=== PATIENT | female | born 1955 | race African-American/Black ===

== ENCOUNTER 2016-08-06 11:21 | Emergency (ER) | payer OTHER ==
[2016-08-06] MEDS ORDERED: OXYCODONE/APAP 5/325MG COMBO TABLET PO ONE (12:26)
--- NOTE | 2016-08-06 12:26 | PDOC ---
History of Present Illness - General History Source: Patient Exam Limitations: No Limitations - History of Present Illness Initial Comments: 08/06/16 14:07 The patient is a 61 year old female, with a significant past medical history of Obesity, renal insufficiency, diabetes, hypertension, Hep C, bipolar, sciatica, depression, chronic back pain who presents to the emergency department with lower back pain and knee pain. The patient states her back pain is similar to her Sciatica pain however this morning it has progressively worsened. Patient notes her pain medications finished 2 days ago and was unable to refill it. Patient denies any trauma, numbness or tingling to the area and presents to the ED for further evaluatin. She denies chest pain, headache or dizziness. She denies fever, chills, nausea, vomit, diarrhea or constipation. She denies dysuria, frequency, urgency or hematuria. Allergies: Penicillin and ibuprofen Past surgical history: Hysterectomy Social history: tobacco use (5 cigarettes daily). Denies alcohol or drug use. PCP: Dr. Nora Moses <Sherlyn Bach - Last Filed: 08/06/16 14:07> - General History Source: Patient, Old Records Exam Limitations: No Limitations <Cecilia Garcia - Last Filed: 08/06/16 14:38> - General Chief Complaint: Back Pain Stated Complaint: BACK PAIN/LEG PAIN Time Seen by Provider: 08/06/16 12:02 Past History <Sherlyn Bach - Last Filed: 08/06/16 14:07> - Past Medical History CVA: Yes COPD: Yes Diabetes: Yes (NO INSULIN) HTN: Yes Psychiatric Problems: Yes Suicide Attempt (Hx): No - Psycho/Social/Smoking Cessation Hx Anxiety: No Suicidal Ideation: No Smoking History: Unknown if ever smoked Have you smoked in the past 12 months: No Number of Cigarettes Smoked Daily: 8 'Breaking Loose' booklet given: 02/25/16 Hx Alcohol Use: No Drug/Substance Use Hx: Yes Substance Use Type: Heroin Hx Substance Use Treatment: No <Cecilia Garcia - Last Filed: 08/06/16 14:38> - Past Medical History Allergies/Adverse Reactions: Allergies Allergy/AdvReac Type Severity Reaction Status Date / Time ibuprofen [From Motrin IB] Allergy Verified 02/24/16 22:30 metformin Allergy Verified 11/03/16 03:34 Penicillins Allergy Verified 02/24/16 22:30 Home Medications: Ambulatory Orders Escitalopram Oxalate [Lexapro -] 20 mg PO DAILY 09/14/15 Olanzapine [Zyprexa -] 5 mg PO HS 09/14/15 Aspirin Coated [Ecotrin -] 81 mg PO DAILY #30 tablet.ec 09/16/15 Amlodipine Besylate [Norvasc -] 10 mg PO DAILY 02/25/16 Carvedilol [Coreg -] 12.5 mg PO BID 02/25/16 Hydralazine HCl [Apresoline -] 50 mg PO DAILY 02/25/16 Hydrocodone/Acetaminophen [Vicodin Hp 10-300 mg Tablet] 1 each PO PRN 02/25/16 Oxycodone HCl/Acetaminophen [Percocet 5-325 mg Tablet] 1 tab PO Q4H #10 tablet MDD 4 08/06/16 Rosuvastatin Calcium [Crestor] 10 mg PO DAILY 08/06/16 Review of Systems - Review of Systems Able to Perform ROS?: Yes Comments:: 08/06/16 14:07 CONSTITUTIONAL: Absent: fever, no chills, no fatigue EYES: Absent: visual changes ENT: Absent: ear pain, no sore throat CARDIOVASCULAR: Absent: chest pain, no palpitations RESPIRATORY: Absent: cough, no SOB GI: Absent: abdominal pain, no nausea, no vomiting, no constipation, no diarrhea GENITOURINARY: Absent: dysuria, no frequency, no hematuria MUSCULOSKELETAL: + knee pain. + back pain. Absent: no arthralgia, no myalgia SKIN: Absent: rash <Sherlyn Bach - Last Filed: 08/06/16 14:07> *Physical Exam - Vital Signs Last Vital Signs Temp Pulse Resp BP Pulse Ox 98.2 F 78 20 142/71 98 08/06/16 11:35 08/06/16 11:35 08/06/16 11:35 08/06/16 11:35 08/06/16 11:35 - Physical Exam Comments: 08/06/16 14:08 GENERAL: Well-appearing, well-nourished. No apparent distress. HEENT: Normocephalic, atraumatic. PERRL, EOM intact. CARDIOVASCULAR: Normal S1, S2. Regular rate and rhythm. PULMONARY: Clear to auscultation bilaterally. ABDOMEN: Soft, non-distended, non-tender. EXTREMITIES: +Diffuse spinal tenderness from mid thoracic to lumbar region. +Bipedal edema from trace to +1. Normal ROM in all four extremities. No gross deformities. SKIN: Warm, dry. No rash NEUROLOGICAL: No focal neurological deficits. <IsrealSherlyn - Last Filed: 08/06/16 14:07> ED Treatment Course - ADDITIONAL ORDERS Additional order review: Laboratory Results 08/06/16 12:49 Urine Color Yellow Urine Appearance Clear Urine pH 5.0 Ur Specific [place] 1.011 Urine Protein Negative Urine Glucose (UA) Negative Urine Ketones Negative Urine Blood Negative Urine Nitrite Negative Urine Bilirubin Negative Urine Urobilinogen Negative Ur Leukocyte Esterase Trace H Urine RBC 1 Urine WBC 3 Ur Epithelial Cells Few Urine Bacteria Rare Urine Mucus Rare - Medications Given in the ED: ED Medications Discontinued Medications Generic Name Dose Route Start Last Admin Trade Name Freq PRN Reason Stop Dose Admin Oxycodone/Acetaminophen 1 combo 08/06/16 12:26 08/06/16 12:39 Percocet 5/325 - PO 08/06/16 12:27 1 combo ONCE ONE Administration <IsrealSherlyn - Last Filed: 08/06/16 14:07> Medical Decision Making - Medical Decision Making 08/06/16 13:46 61-year-old female with history of bipolar disorder, COPD, hypertension, diabetes and chronic lower back pain secondary to sciatica who presents to the emergency department 2 day history of right-sided lower back pain radiating down her right lower extremity similar to prior episodes of sciatica. She has no other complaints. The patient ran out of her hydrocodone at home and therefore decided to come to the emergency department for treatment. Differential diagnosis includes but is not limited to: Sciatica, muscle spasm, UTI. Plan: 1. Urine analysis 2. Management 3. Observe and reevaluate 08/06/16 14:34 Urine show LE but no nitrites. The patient is asymptomatic. Urine culture was sent. FSG is 103. The patient was re-evaluated at this time and feel much better. I have prescribed her TEN percocet tablet and have instructed her to follow-up with her PCP within the next 1-3 days. I have also advised her to RTED if Sx persist, worsen or new Sx arise. <Cecilia Garcia - Last Filed: 08/06/16 14:38> *DC/Admit/Observation/Transfer - Attestations Scribe Attestion: 08/06/16 14:08 Documentation prepared by Sherlyn Bach, acting as medical support specialist for Cecilia Garcia MD <Sherlyn Bach - Last Filed: 08/06/16 14:07> - Discharge Dispostion Admit: No - Attestations Physician Attestion: 08/06/16 13:47 I, Dr. Cecilia Garcia, attest that the scribes documentation that appears above has been prepared under my direction and personally reviewed by me in its entirety. I confirmed that the note above accurately reflects all work, treatment, procedures, and medical decision-making performed by me. <Cecilia Garcia - Last Filed: 08/06/16 14:38> Diagnosis at time of Disposition: Sciatica - Discharge Dispostion Disposition: HOME Condition at time of disposition: Stable - Prescriptions Prescriptions: Oxycodone HCl/Acetaminophen [Percocet 5-325 mg Tablet] 1 tab PO Q4H #10 tablet MDD 4 - Referrals Referrals: Nora Moses MD [Primary Care Provider] - - Patient Instructions Printed Discharge Instructions: DI for Sciatica Additional Instructions: You are being prescribed percocet--take one tablet every 4-6 hours as needed for pain. You MUST follow-up with your primary care physician within the next 2 -3 days. Return to the ED if your symptoms persist, worsen or new symptoms arise.
[2016-08-06] MEDS ORDERED: OXYCODONE/APAP 5/325MG COMBO TABLET ONE (12:36)
[2016-08-06 13:16] LABS: URINE APPEARANCE CLEAR; URINE BILIRUBIN NEGATIVE (NEGATIVE); URINE BLOOD NEGATIVE (NEGATIVE); URINE COLOR YELLOW; URINE GLUCOSE (UA) NEGATIVE (NEGATIVE); URINE KETONE NEGATIVE (NEGATIVE); URINE NITRITE NEGATIVE (NEGATIVE); URINE PROTEIN NEGATIVE (NEGATIVE); URINE UROBILINOGEN NEGATIVE E.U./dl (0.2-1.0)
[2016-08-06 13:18] LABS: URINE LEUK ESTERASE TRACE (NEGATIVE)
[2016-08-06 13:19] LABS: URINE BACTERIA RARE /hpf (NONE SEEN); URINE MUCUS RARE; URINE RBC 1 /hpf (0-3); URINE WBC 3 /hpf (3-5)
[2016-08-06 13:40] VITALS: BP 142/71; PULSE 78; TEMP 98.2; BMI 36.0
== END 2016-08-06 15:15 | disposition home or self-care (01) ==
LOC: JER 11:21
DX: M54.41 Lumbago with sciatica, right side (principal); I12.9 Hypertensive chronic kidney disease with stage 1 through stage 4 chronic kidney disease, or unspecified chronic kidney disease; E11.9 Type 2 diabetes mellitus without complications; J45.909 Unspecified asthma, uncomplicated; F31.9 Bipolar disorder, unspecified; Z86.73 Personal history of transient ischemic attack (TIA), and cerebral infarction without residual deficits
CPT/HCPCS: 81003; 81015; 99282-25

== ENCOUNTER 2016-08-09 18:18 | Emergency (ER) | payer OTHER ==
[2016-08-09 18:48] VITALS: BMI 36.6
[2016-08-09 18:49] VITALS: TEMP 99.3
--- NOTE | 2016-08-09 20:03 | PDOC ---
History of Present Illness - General Chief Complaint: Chronic pain Stated Complaint: RT KNEE PAIN/LOWER BACK PAIN Time Seen by Provider: 08/09/16 19:13 - History of Present Illness Initial Comments: 08/09/16 20:03 CHIEF COMPLAINT: right knee pain HISTORY OF PRESENT ILLNESS: 61 yo F with hx of obesity, renal insufficiency, NIDDM, hypertension, Hep C, bipolar, sciatica, depression, chronic back pain presents to ED with chronic R knee pain. Patient was seen in this ED two days ago for exacerbation of sciatica and discharged to home with 10 tabs of Percocet. Patient states the Percocets did help her but she ran out of the medication and is unable to refill her regular pain medication of hydrocodone until the . Her pain management doctor is Dr. Torres. She denies any loss of sensation, numbness, or tingling to her legs, and denies any loss of bowel or bladder function. She denies any chest pain, shortness of breath, palpitations, or headache. No recent travel or sick contacts. PAST MEDICAL HISTORY: as per HPI FAMILY HISTORY: Denies SOCIAL HISTORY: Current smoker, 6 cigarettes daily. alcohol, illicit drug use. SURGICAL HISTORY: Denies ALLERGIES: ibuprofen, PCN, metformin REVIEW OF SYSTEMS General/Constitutional: Denies fever or chills. Denies weakness, weight change. HEENT: Denies change in vision. Denies ear pain or discharge. Denies sore throat. Cardiovascular: Denies chest pain or shortness of breath. Respiratory: Denies cough, wheezing, or hemoptysis. Gastrointestinal: Denies nausea, vomiting, diarrhea or constipation. Denies rectal bleeding. Genitourinary: Denies dysuria, frequency, or change in urination. Musculoskeletal: Denies joint or muscle swelling or pain. Denies neck or back pain. Skin and breasts: Denies rash or easy bruising. PHYSICAL EXAM General Appearance: Well-appearing, appropriately dressed. No apparent distress , no intoxication. HEENT: EOMI, PERRLA, normal ENT inspection, normal voice, TMs normal, pharynx normal. No conjunctival pallor. No photophobia, scleral icterus. Neck: Supple. Trachea midline. No tenderness, rigidity, carotid bruit, stridor , lymphadenopathy, or thyromegaly. Respiratory/Chest: Lungs CTAB. Cardiovascular: RRR. S1, S2. Vascular Pulses: Dorsalis-Pedis (R): 2+, Dorsalis-Pedis (L): 2+ Gastrointestinal/Abdominal: Normal bowel sounds. Abdomen soft, non-distended. No tenderness or rebound tenderness. No organomegaly, pulsatile mass, guarding , hernia, hepatomegaly, splenomegaly. Musculoskeletal/Extremities: Pain to R knee with movement, limited ROM secondary to pain. No loss of sensation to lower extremities bilaterally. Normal inspection. FROM of all extremities, normal capillary refill. Pelvis Stable. No CVA tenderness. No tenderness to extremities, pedal edema, swelling , erythema or deformity. Integumentary: Appropriate color, dry, warm. No cyanosis, erythema, jaundice or rash Neurologic: shot fireman II-XII intact. Fully oriented, alert. Appropriate mood/affect. Motor strength 5/5. No appreciable EOM palsy, facial droop or sensory deficit. 08/09/16 20:06 08/09/16 20:24 Past History - Past Medical History Allergies/Adverse Reactions: Allergies Allergy/AdvReac Type Severity Reaction Status Date / Time ibuprofen [From Motrin IB] Allergy Verified 08/09/16 18:43 metformin Allergy Verified 08/09/16 18:43 Penicillins Allergy Verified 08/09/16 18:43 Home Medications: Ambulatory Orders Escitalopram Oxalate [Lexapro -] 20 mg PO DAILY 09/14/15 Olanzapine [Zyprexa -] 5 mg PO HS 09/14/15 Aspirin Coated [Ecotrin -] 81 mg PO DAILY #30 tablet.ec 09/16/15 Amlodipine Besylate [Norvasc -] 10 mg PO DAILY 02/25/16 Carvedilol [Coreg -] 12.5 mg PO BID 02/25/16 Hydralazine HCl [Apresoline -] 50 mg PO DAILY 02/25/16 Hydrocodone/Acetaminophen [Vicodin Hp 10-300 mg Tablet] 1 each PO PRN 02/25/16 Rosuvastatin Calcium [Crestor] 10 mg PO DAILY 08/06/16 Oxycodone HCl/Acetaminophen [Percocet 5-325 mg Tablet] 1 tab PO Q4H #10 tablet MDD 4 08/09/16 CVA: Yes COPD: Yes Diabetes: Yes (NO INSULIN) HTN: Yes Psychiatric Problems: Yes Suicide Attempt (Hx): No - Psycho/Social/Smoking Cessation Hx Anxiety: No Suicidal Ideation: No Smoking History: Unknown if ever smoked Have you smoked in the past 12 months: No Number of Cigarettes Smoked Daily: 8 Information on smoking cessation initiated: No 'Breaking Loose' booklet given: 02/25/16 Hx Alcohol Use: No Drug/Substance Use Hx: No Substance Use Type: Heroin Hx Substance Use Treatment: No *Physical Exam - Vital Signs Last Vital Signs Temp Pulse Resp BP Pulse Ox 99.3 F 101 H 20 123/80 96 08/09/16 18:48 08/09/16 18:48 08/09/16 18:48 08/09/16 18:48 08/09/16 18:48 Medical Decision Making - Medical Decision Making 08/09/16 20:25 61 yo F with hx of obesity, renal insufficiency, NIDDM, hypertension, Hep C, bipolar, sciatica, depression, chronic back pain presents to ED with chronic R knee pain. Vitals notable for HR 103 on arrival. -1 tab Percocet Repeat VS, HR now 92 via pulse ox, 88 on manual exam. Patient did not see PCP as directed by MD in this ED during last visit; states that she was unable to see PCP due to but did speak with PCP today and will follow up in 2 days. Will write for 2 days of Percocet for patient to f/u with PCP. Advised patient to take meds only as prescribed and of signs and symptoms for return to ER; patient verbalized understanding and agrees to plan. *DC/Admit/Observation/Transfer Diagnosis at time of Disposition: Knee pain, chronic Qualifiers: Laterality: right Qualified Code(s): M25.561 - Pain in right knee - Discharge Dispostion Admit: No - Prescriptions Prescriptions: Oxycodone HCl/Acetaminophen [Percocet 5-325 mg Tablet] 1 tab PO Q4H #10 tablet MDD 4 - Referrals Referrals: Nora Moses MD [Non Staff, Medical] - Capo Torres MD [Staff Physician] - - Patient Instructions Printed Discharge Instructions: DI for Knee Pain Additional Instructions: As discussed, you MUST follow up with Dr. Moses on . Please take medication as prescribed; do NOT drive or operate machinery while taking these medications. If you experience any numbness, tingling, loss of sensation, loss of bowel or bladder function, chest pain, shortness of breath, palpitations, or any new or worsening symptoms, please return to the ER.
[2016-08-09] MEDS ORDERED: OXYCODONE/APAP 5/325MG COMBO TABLET PO ONE (20:15)
[2016-08-09] MEDS ORDERED: OXYCODONE/APAP 5/325MG COMBO TABLET ONE (20:25)
[2016-08-09 20:37] VITALS: BP 121/78; PULSE 92
== END 2016-08-09 21:11 | disposition home or self-care (01) ==
LOC: JER 18:18
DX: M25.561 Pain in right knee (principal); G89.29 Other chronic pain; I10 Essential (primary) hypertension; E11.9 Type 2 diabetes mellitus without complications; Z79.84 Long term (current) use of oral hypoglycemic drugs; F32.9 Major depressive disorder, single episode, unspecified; F31.9 Bipolar disorder, unspecified; B18.2 Chronic viral hepatitis C; M54.40 Lumbago with sciatica, unspecified side
CPT/HCPCS: 99282-25

== ENCOUNTER 2016-08-12 09:05 | Emergency (ER) | payer OTHER ==
[2016-08-12 09:16] VITALS: BP 124/81; PULSE 92; TEMP 98.2; BMI 37.4
--- NOTE | 2016-08-12 10:28 | PDOC ---
[id number] PAIN,REFILL Time Seen by Provider: 08/12/16 10:09 - History of Present Illness Initial Comments: 08/12/16 10:45 61 year old female with chronic pain requesting refill of percocet and xanax. patient seen in the ED for similar complaints given percocet prescription. patient reports running out of pain meds. Pmhx as listed Past History - Past Medical History Allergies/Adverse Reactions: Allergies Allergy/AdvReac Type Severity Reaction Status Date / Time ibuprofen [From Motrin IB] Allergy Verified 08/09/16 18:43 metformin Allergy Verified 08/09/16 18:43 Penicillins Allergy Verified 08/09/16 18:43 Home Medications: Ambulatory Orders Escitalopram Oxalate [Lexapro -] 20 mg PO DAILY 09/14/15 Olanzapine [Zyprexa -] 5 mg PO HS 09/14/15 Aspirin Coated [Ecotrin -] 81 mg PO DAILY #30 tablet.ec 09/16/15 Amlodipine Besylate [Norvasc -] 10 mg PO DAILY 02/25/16 Carvedilol [Coreg -] 12.5 mg PO BID 02/25/16 Hydralazine HCl [Apresoline -] 50 mg PO DAILY 02/25/16 Hydrocodone/Acetaminophen [Vicodin Hp 10-300 mg Tablet] 1 each PO PRN 02/25/16 Rosuvastatin Calcium [Crestor] 10 mg PO DAILY 08/06/16 Oxycodone HCl/Acetaminophen [Percocet 5-325 mg Tablet] 1 tab PO Q4H #10 tablet MDD 4 08/09/16 CVA: Yes COPD: Yes Diabetes: Yes (NO INSULIN) HTN: Yes Psychiatric Problems: Yes Suicide Attempt (Hx): No - Psycho/Social/Smoking Cessation Hx Anxiety: No Suicidal Ideation: No Smoking History: Current every day smoker Have you smoked in the past 12 months: Yes Number of Cigarettes Smoked Daily: 6 Information on smoking cessation initiated: No 'Breaking Loose' booklet given: 02/25/16 Hx Alcohol Use: No Drug/Substance Use Hx: No Substance Use Type: Heroin Hx Substance Use Treatment: No *Physical Exam - Vital Signs Last Vital Signs Temp Pulse Resp BP Pulse Ox 98.2 F 92 H 20 124/81 93 L 08/12/16 09:13 08/12/16 09:13 08/12/16 09:13 08/12/16 09:13 08/12/16 09:13 - Physical Exam General Appearance: Yes: Appropriately Dressed, Other (wheel chair bound) Respiratory/Chest: positive: Lungs Clear, Normal Breath Sounds Extremity: positive: Normal Capillary Refill, Normal Inspection, Normal Range of Motion, Swelling (b/l lower extremity mild edema) Integumentary: positive: Normal Color, Dry, Warm Neurologic: positive: Fully Oriented, Alert, Normal Mood/Affect Medical Decision Making - Medical Decision Making 08/12/16 10:38 I- Stop reviewed 08/10/2016 08/10/2016 oxycodone-acetaminophen 5-325 mg tablet 10 3 08/06/2016 08/08/2016 oxycodone-acetaminophen 5-325 mg tablet 10 2 07/20/2016 07/20/2016 hydrocodone-acetaminophen 10-325 tablet 120 30 08/12/16 10:44 patient with chronic pain. seen in the ED for similar complaints. advised to follow up with pain management today. will give one dose in the ED. patient is taking a Cab home. *DC/Admit/Observation/Transfer Diagnosis at time of Disposition: Chronic pain Qualifiers: Chronic pain type: other chronic pain Qualified Code(s): G89.29 - Other chronic pain - Discharge Dispostion Disposition: HOME Condition at time of disposition: Stable - Referrals Referrals: Nora Moses MD [Primary Care Provider] - - Patient Instructions Printed Discharge Instructions: DI for Leg Pain Additional Instructions: elevate your legs follow up with your pain management doctor as soon as possible.
[2016-08-12] MEDS ORDERED: OXYCODONE/APAP 5/325MG COMBO TABLET PO ONE (10:47)
[2016-08-12] MEDS ORDERED: OXYCODONE/APAP 5/325MG COMBO TABLET ONE (10:49)
== END 2016-08-12 11:09 | disposition home or self-care (01) ==
LOC: JERFT 09:05
DX: G89.29 Other chronic pain (principal); I10 Essential (primary) hypertension; E11.9 Type 2 diabetes mellitus without complications; J44.9 Chronic obstructive pulmonary disease, unspecified; Z86.73 Personal history of transient ischemic attack (TIA), and cerebral infarction without residual deficits
CPT/HCPCS: 99281-25

== ENCOUNTER 2016-09-28 10:30 | Emergency (ER) | payer OTHER ==
--- NOTE | 2016-09-28 11:01 | PDOC ---
History of Present Illness - General History Source: Old Records Exam Limitations: No Limitations - History of Present Illness Initial Comments: 11:12 The patient is a 61 year old female, with a significant past medical history of COPD (no O2 at home), CHF, NC, diabetes, hypertension, Hep C, bipolar, sciatica , depression, chronic back pain, who presents to the ED with lower extremity swelling. The pt states that she does get short of breath when ambulating. Pt reports chills. Pt denies any fever, nausea, vomiting, diarrhea, or abdominal pain. Pt denies any chest pain. Allergies: Penicillin and ibuprofen Past surgical history: Hysterectomy Social history: tobacco use (8 cigarettes daily). Denies alcohol or drug use. PCP: Dr. Nora Moses <Hue Márquez - Last Filed: 09/28/16 12:14> <Barbie Li - Last Filed: 09/28/16 15:42> - General Chief Complaint: Shortness of Breath Stated Complaint: lethargy/sob Time Seen by Provider: 09/28/16 10:39 Past History <Hue Márquez - Last Filed: 09/28/16 12:14> - Past Medical History CVA: Yes COPD: Yes Diabetes: Yes (NO INSULIN) HTN: Yes Psychiatric Problems: Yes Suicide Attempt (Hx): No - Psycho/Social/Smoking Cessation Hx Anxiety: No Suicidal Ideation: No Smoking History: Current every day smoker Have you smoked in the past 12 months: Yes Number of Cigarettes Smoked Daily: 8 Information on smoking cessation initiated: No 'Breaking Loose' booklet given: 02/25/16 Hx Alcohol Use: No Drug/Substance Use Hx: No Substance Use Type: Heroin Hx Substance Use Treatment: No <Barbie Li - Last Filed: 09/28/16 15:42> - Past Medical History Allergies/Adverse Reactions: Allergies Allergy/AdvReac Type Severity Reaction Status Date / Time ibuprofen [From Motrin IB] Allergy Verified 09/28/16 10:59 metformin Allergy Verified 09/28/16 10:59 Penicillins Allergy Verified 09/28/16 10:59 Home Medications: Ambulatory Orders Escitalopram Oxalate [Lexapro -] 20 mg PO DAILY 09/14/15 Olanzapine [Zyprexa -] 5 mg PO HS 09/14/15 Aspirin Coated [Ecotrin -] 81 mg PO DAILY #30 tablet.ec 09/16/15 Amlodipine Besylate [Norvasc -] 10 mg PO DAILY 02/25/16 Carvedilol [Coreg -] 12.5 mg PO BID 02/25/16 Hydralazine HCl [Apresoline -] 50 mg PO DAILY 02/25/16 Rosuvastatin Calcium [Crestor] 10 mg PO DAILY 08/06/16 Oxycodone HCl/Acetaminophen [Percocet 5-325 mg Tablet] 1 tab PO Q4H #10 tablet MDD 4 08/09/16 Albuterol Sulfate Inhaler - [Ventolin HFA Inhaler -] 2 inh PO Q4H PRN #1 inh 11/07 Albuterol Sulfate Inhaler - [Ventolin HFA Inhaler -] 2 inh PO Q4H PRN #1 inh 11/07 Clindamycin [Cleocin -] 300 mg PO TID #21 capsule 09/28/16 Prednisone [Deltasone -] 20 mg PO DAILY #7 tablet 09/28/16 Review of Systems - Review of Systems Able to Perform ROS?: Yes Comments:: 09/28/16 11:12 GENERAL/CONSTITUTIONAL: No fever. No weakness. +chills HEAD, EYES, EARS, NOSE AND THROAT: No change in vision. No ear pain or discharge. No sore throat. CARDIOVASCULAR: No chest pain. +shortness of breath RESPIRATORY: No cough, wheezing, or hemoptysis. SKIN: No rash GASTROINTESTINAL: No nausea, vomiting, diarrhea or constipation. GENITOURINARY: No dysuria, frequency, or change in urination. MUSCULOSKELETAL: No joint swelling or pain. No neck or back pain. EXTREMITIES: +lower extremity swelling NEUROLOGIC: No headache, vertigo, loss of consciousness, or change in strength/ sensation. ENDOCRINE: No increased thirst. No abnormal weight change. HEMATOLOGIC/LYMPHATIC: No anemia, easy bleeding, or history of blood clots. ALLERGIC/IMMUNOLOGIC: No hives or skin allergy. <Hue Márquez - Last Filed: 09/28/16 12:14> *Physical Exam - Vital Signs Last Vital Signs Temp Pulse Resp BP Pulse Ox 98.4 F 90 28 H 141/85 99 09/28/16 10:30 09/28/16 10:30 09/28/16 10:30 09/28/16 10:30 09/28/16 10:52 - Physical Exam Comments: 09/28/16 11:14 GENERAL: Awake, alert, and fully oriented, in no acute distress. Obese. HEAD: No signs of trauma ENT: Auricles normal inspection, hearing grossly normal, nares patent, oropharynx clear EYES: PERRLA, EOMI, sclera anicteric, conjunctiva clear without exudates. Moist mucosa. NECK: Normal ROM, supple, no lymphadenopathy, JVD, or masses LUNGS: No wheezes, and no crackles. +Lung sounds distance HEART: Regular rate and rhythm, normal S1 and S2, no murmurs, rubs or gallops ABDOMEN: Soft, nontender, normoactive bowel sounds. No guarding, no rebound. No masses EXTREMITIES: Normal range of motion. No clubbing or cyanosis. No cords. + Bilateral pitting edema to knee with warmth. NEUROLOGICAL: Cranial nerves II through XII grossly intact. SKIN: Warm, Dry, normal turgor, no rashes or lesions noted <Hue Márquez - Last Filed: 09/28/16 12:14> - Vital Signs Last Vital Signs Temp Pulse Resp BP Pulse Ox 98.4 F 90 28 H 141/85 99 09/28/16 10:30 09/28/16 10:30 09/28/16 10:30 09/28/16 10:30 09/28/16 10:52 <Barbie Li - Last Filed: 09/28/16 15:42> Heart Score/ECG Review #1 General ECG Interpretation: Sinus Rhythm, Normal Rate (83), Normal Intervals, No acute ischemic changes - ECG Intrepretation Rhythm: Regular Rhythm - Mason Mason: Normal <Barbie Li - Last Filed: 09/28/16 15:42> ED Treatment Course - LABORATORY CBC & Chemistry Diagram: 09/28/16 11:40 09/28/16 11:40 - RADIOLOGY Radiology Studies Ordered: 09/28/16 12:14 Chest X-Ray was reviewed by Dr. Li and over-read by Radiology. Impression: No evidence of CHF, pulmonic consolidations, pneumothorax, or large pleural effusion. <Hue Márquez - Last Filed: 09/28/16 12:14> - LABORATORY CBC & Chemistry Diagram: 09/28/16 11:40 09/28/16 11:40 <Barbie Li - Last Filed: 09/28/16 15:42> Medical Decision Making - Medical Decision Making 09/28/16 10:56 61 yo F COPD, CHF, NC, bipolar , cKD hep C HTN here wtih c/o " not feeling well ". states her legs are more swollen recently . does get sob with walking , does not wear home Oxygen. no chest pain. no n/v no abd pain. no f/c no mod factors. does ambulate. on exam awake, alert . lungs distant breath sounds, heart RRR no m/r/g. abd soft obese nt. legs pitting edema bilaterally 3 + to knees. mild erythema and warmth. differential: cellulitis, edema, chf worsenign renal failure. plan labs cxr ekg , 09/28/16 14:56 pt feels improved after neb, sats improved. cxr unchanged from prior. labs unremarkable. will dc with inhaler , and clindamycin for leg erythema, early cellulitis, refill rx for inhaler. will follow up with clinic. 09/28/16 15:40 <Barbie Li - Last Filed: 09/28/16 15:42> *DC/Admit/Observation/Transfer - Attestations Scribe Attestion: 09/28/16 11:16 Documentation prepared by Hue Márquez, acting as medical records custodian for Barbie Li MD. <Hue Márquez - Last Filed: 09/28/16 12:14> - Discharge Dispostion Admit: No <Barbie Li - Last Filed: 09/28/16 15:42> Diagnosis at time of Disposition: Leg edema, COPD (chronic obstructive pulmonary disease) - Discharge Dispostion Disposition: HOME Condition at time of disposition: Improved - Prescriptions Prescriptions: Clindamycin [Cleocin -] 300 mg PO TID #21 capsule Prednisone [Deltasone -] 20 mg PO DAILY #7 tablet Albuterol Sulfate Inhaler - [Ventolin HFA Inhaler -] 2 inh PO Q4H PRN #1 inh PRN Reason: Shortness Of Breath Albuterol Sulfate Inhaler - [Ventolin HFA Inhaler -] 2 inh PO Q4H PRN #1 inh PRN Reason: Shortness Of Breath - Referrals Referrals: Nora Moses MD [Primary Care Provider] - - Patient Instructions Printed Discharge Instructions: Chronic Obstructive Pulmonary Disease, Cellulitis Additional Instructions: take clindamycin 300 mg three times daily x 7 days. you should quit smoking. you should also use albuterol inhaler 2 puffs every 4 hours to help with breathing. follow up wtih your primary doctor call to schedule. return for shortness of breath, worsening legg pain or swelling or any concerns.take prednisone 20 mg daily x 7 days.
[2016-09-28 11:32] VITALS: BMI 37.4
[2016-09-28 11:54] LABS: BASOPHIL 0.4 % (0-2.0); EOSINOPHIL 1.3 % (0-4.5); MCH 25.3 pg (25.7-33.7); MCHC 31.7 g/dl (32.0-36.0); MEAN CELL VOLUME 79.9 fl (80-96); MEAN PLT VOLUME 6.9 fl (7.5-11.1); NEUTROPHILS 59.1 % (42.8-82.8); PLATELET COUNT 215 K/MM3 (134-434); RDW 18.5 % (11.6-15.6); WHITE BLOOD COUNT 4.2 K/mm3 (4.0-10.0)
[2016-09-28 12:28] LABS: ALBUMIN 3.4 g/dl (3.4-5.0); BILIRUBIN,TOTAL 0.5 mg/dL (0.2-1.0); CALCIUM 8.2 mg/dL (8.5-10.1); COCKROFT - GAULT 82.773; CREATININE 1.1 mg/dL (0.55-1.02); TOT PROT 7.9 g/dl (6.4-8.2)
[2016-09-28] MEDS ORDERED: ALBUTEROL SO4 2.5/IPRATROPIUM 0.5 INH SOL 3 ML VIAL.NEB. NEB ONE ×2 (13:28→13:29)
[2016-09-28 15:13] VITALS: BP 138/88; PULSE 89; TEMP 98.9
[2016-09-28] MEDS ORDERED: predniSONE 20 MG TABLET (UD) PO ONE (15:29)
[2016-09-28] MEDS ORDERED: predniSONE 20 MG TABLET (UD) ONE (15:30)
--- NOTE | 2016-09-29 10:35 | EKG ---
Test Reason : Blood Pressure : / mmHG Vent. Rate : 083 BPM Atrial Rate : 083 BPM P-R Int : 184 ms QRS Dur : 086 ms QT Int : 416 ms P-R-T Axes : 063 025 069 degrees QTc Int : 488 ms NORMAL SINUS RHYTHM NORMAL ECG WHEN COMPARED WITH ECG OF 25-FEB-2016 02:07, NO SIGNIFICANT CHANGE WAS FOUND Confirmed by SRIKANTH BELL MD ([id number]) on 09/29/2016 10:34:54 AM Referred By: Confirmed By:SRIKANTH BELL MD
== END 2016-09-28 15:43 | disposition home or self-care (01) ==
LOC: JER 10:30
PROC: 3E0F7GC Introduction of Other Therapeutic Substance into Respiratory Tract, Via Natural or Artificial Opening (ICD-10-PCS; principal; 2016-09-28)
DX: R60.0 Localized edema (principal); J44.9 Chronic obstructive pulmonary disease, unspecified; I25.2 Old myocardial infarction; I25.10 Atherosclerotic heart disease of native coronary artery without angina pectoris; I13.0 Hypertensive heart and chronic kidney disease with heart failure and stage 1 through stage 4 chronic kidney disease, or unspecified chronic kidney disease; N18.9 Chronic kidney disease, unspecified; I50.9 Heart failure, unspecified; F17.210 Nicotine dependence, cigarettes, uncomplicated; E11.9 Type 2 diabetes mellitus without complications; B18.2 Chronic viral hepatitis C; F32.9 Major depressive disorder, single episode, unspecified
CPT/HCPCS: 36415; 71010-TC; 80053; 83880; 85025; 93005; 93010; 94640; 99284-25

== ENCOUNTER 2016-10-28 11:14 | Emergency (ER) | payer OTHER ==
[2016-10-28 11:43] VITALS: TEMP 98.3; BMI 42.5
[2016-10-28] MEDS ORDERED: ALBUTEROL SO4 2.5/IPRATROPIUM 0.5 INH SOL 3 ML VIAL.NEB. NEB ONE ×2 (12:23→12:25)
[2016-10-28 13:51] LABS: BASOPHIL 0.5 % (0-2.0); EOSINOPHIL 1.5 % (0-4.5); MCH 24.5 pg (25.7-33.7); MCHC 31.6 g/dl (32.0-36.0); MEAN CELL VOLUME 77.7 fl (80-96); MEAN PLT VOLUME 6.8 fl (7.5-11.1); NEUTROPHILS 48.8 % (42.8-82.8); PLATELET COUNT 226 K/MM3 (134-434); RDW 19.9 % (11.6-15.6); WHITE BLOOD COUNT 3.8 K/mm3 (4.0-10.0)
[2016-10-28 14:14] LABS: ALBUMIN 3.5 g/dl (3.4-5.0); ANION GAP 9 (8-16); BILIRUBIN,TOTAL 0.6 mg/dL (0.2-1.0); CALCIUM 8.3 mg/dL (8.5-10.1); CO2 32 mmol/L (21-32); GLUCOSE,RANDOM 102 mg/dL (74-106); SGOT/AST 38 U/L (15-37); SGPT/ALT 65 U/L (12-78)
[2016-10-28 14:17] LABS: ALK PHOS 121 U/L (45-117); TROPONIN I < 0.02 ng/ml (0.00-0.05)
[2016-10-28] MEDS ORDERED: DEXAMETHASONE SOD PHOSPHATE 10 MG/1 ML VIAL IVPB ONE (14:34)
--- NOTE | 2016-10-28 14:34 | PDOC ---
History of Present Illness - General History Source: Patient, Old Records Exam Limitations: No Limitations - History of Present Illness Initial Comments: 10/28/16 14:38 The patient is a 61 year old female with a significant past medical history of obesity, renal insufficiency, diabetes, hypertension, Hep C, TB, bipolar, sciatica, depression, chronic back pain, CA and stroke (12/2015), who presents to the emergency department today with shortness of breath and fatigue for 2 days. The patient appears agitated on examination. She endorses bilateral calf pain worse with walking and headache. Patient denies cough, fever, chills, chest pain, neck pain, arm pain, nausea, vomiting, diarrhea, and history of blood clot. Allergies: Penicillin and ibuprofen Past surgical history: Hysterectomy Social history: tobacco use (5 cigarettes daily). Denies alcohol or drug use. PCP: Dr. Nora Moses <Cam Palomo - Last Filed: 10/28/16 14:39> <Barbie Li - Last Filed: 10/28/16 18:08> - General Chief Complaint: Shortness of Breath Stated Complaint: SOB Time Seen by Provider: 10/28/16 12:18 Past History <Cam Palomo - Last Filed: 10/28/16 14:39> - Past Medical History CVA: Yes COPD: Yes Diabetes: Yes HTN: Yes Liver Disease: Yes (HEPATITIS C.) Psychiatric Problems: Yes Suicide Attempt (Hx): No Other medical history: SCIATICA. - Surgical History Abdominal Surgery: Yes - Psycho/Social/Smoking Cessation Hx Anxiety: No Suicidal Ideation: No Smoking History: Current every day smoker Have you smoked in the past 12 months: Yes Number of Cigarettes Smoked Daily: 10 Information on smoking cessation initiated: No 'Breaking Loose' booklet given: 02/25/16 Hx Alcohol Use: Yes (occassionally.) Drug/Substance Use Hx: No Substance Use Type: Alcohol Hx Substance Use Treatment: No <Barbie Li - Last Filed: 10/28/16 18:08> - Past Medical History Allergies/Adverse Reactions: Allergies Allergy/AdvReac Type Severity Reaction Status Date / Time ibuprofen [From Motrin IB] Allergy Verified 09/28/16 10:59 metformin Allergy Verified 09/28/16 10:59 Penicillins Allergy Verified 09/28/16 10:59 Home Medications: Ambulatory Orders Escitalopram Oxalate [Lexapro -] 20 mg PO DAILY 09/14/15 Olanzapine [Zyprexa -] 5 mg PO HS 09/14/15 Aspirin Coated [Ecotrin -] 81 mg PO DAILY #30 tablet.ec 09/16/15 Amlodipine Besylate [Norvasc -] 10 mg PO DAILY 02/25/16 Carvedilol [Coreg -] 12.5 mg PO BID 02/25/16 Hydralazine HCl [Apresoline -] 50 mg PO DAILY 02/25/16 Rosuvastatin Calcium [Crestor] 10 mg PO DAILY 08/06/16 Oxycodone HCl/Acetaminophen [Percocet 5-325 mg Tablet] 1 tab PO Q4H #10 tablet MDD 4 08/09/16 Albuterol Sulfate Inhaler - [Ventolin HFA Inhaler -] 2 inh PO Q4H PRN #1 inh 11/07 Clindamycin [Cleocin -] 300 mg PO TID #21 capsule 09/28/16 Albuterol Sulfate Inhaler - [Ventolin HFA Inhaler -] 2 inh PO Q4H PRN #1 inh 11/07 Prednisone [Deltasone -] 20 mg PO DAILY #7 tablet 10/28/16 Review of Systems - Review of Systems Able to Perform ROS?: Yes Comments:: 10/28/16 14:38 GENERAL/CONSTITUTIONAL: (+) Fatigue. No fever or chills. HEAD, EYES, EARS, NOSE AND THROAT: No change in vision. No ear pain or discharge. No sore throat. GASTROINTESTINAL: No nausea, vomiting, diarrhea or constipation. GENITOURINARY: No dysuria, frequency, or change in urination. CARDIOVASCULAR: No chest pain. RESPIRATORY: (+) Shortness of breath No cough, wheezing, or hemoptysis. MUSCULOSKELETAL: (+) Bilateral calf pain. No neck or back pain. SKIN: No rash NEUROLOGIC: (+) headache. No vertigo, loss of consciousness, or change in strength/sensation. ENDOCRINE: No increased thirst. No abnormal weight change. HEMATOLOGIC/LYMPHATIC: No anemia, easy bleeding, or history of blood clots. ALLERGIC/IMMUNOLOGIC: No hives or skin allergy. <Cam Palomo - Last Filed: 10/28/16 14:39> *Physical Exam - Vital Signs Last Vital Signs Temp Pulse Resp BP Pulse Ox 98.3 F 78 20 118/82 97 10/28/16 11:16 10/28/16 11:16 10/28/16 11:16 10/28/16 11:16 10/28/16 11:57 - Physical Exam Comments: 10/28/16 14:38 GENERAL: (+) Awake, alert, and fully oriented, agitated HEAD: No signs of trauma EYES: PERRLA, EOMI, sclera anicteric, conjunctiva clear ENT: Auricles normal inspection, nares patent, Moist mucosa NECK: Normal ROM, supple, no lymphadenopathy, JVD, or masses LUNGS: (+) Breath sounds equal, clear to auscultation bilaterally. Bilateral diffuse wheezes, no crackles. HEART: (+) Tachycardia with regular rhythm, normal S1 and S2, no murmurs, rubs or gallops ABDOMEN: Soft, nontender, normoactive bowel sounds. No guarding, no rebound. No masses EXTREMITIES: Normal range of motion, no edema. No clubbing or cyanosis. No cords, erythema, or tenderness NEUROLOGICAL: Normal speech SKIN: Warm, Dry, normal turgor, no rashes or lesions noted. <Cam Palomo - Last Filed: 10/28/16 14:39> - Vital Signs Last Vital Signs Temp Pulse Resp BP Pulse Ox 98.3 F 78 20 118/82 97 10/28/16 11:16 10/28/16 11:16 10/28/16 11:16 10/28/16 11:16 10/28/16 11:57 <Barbie Li - Last Filed: 10/28/16 18:08> Heart Score/ECG Review #1 General ECG Interpretation: Sinus Rhythm, Normal Rate (64), Normal Intervals, No acute ischemic changes <Barbie Li - Last Filed: 10/28/16 18:08> ED Treatment Course - LABORATORY CBC & Chemistry Diagram: 10/28/16 13:21 10/28/16 13:21 - ADDITIONAL ORDERS Additional order review: Laboratory Results 10/28/16 13:21 Sodium 142 Potassium 3.0 L Chloride 101 Carbon Dioxide 32 Anion Gap 9 BUN 10 D Creatinine 1.0 Creat Clearance w eGFR 56.18 Random Glucose 102 Calcium 8.3 L Total Bilirubin 0.6 AST 38 H D ALT 65 Alkaline Phosphatase 121 H Creatine Kinase 82 Troponin I < 0.02 B-Natriuretic Peptide 291.72 H Total Protein 8.0 Albumin 3.5 10/28/16 13:21 RBC 4.52 MCV 77.7 L MCHC 31.6 L RDW 19.9 H MPV 6.8 L Neutrophils % 48.8 Lymphocytes % 36.0 D Monocytes % 13.2 H Eosinophils % 1.5 Basophils % 0.5 - RADIOLOGY Radiograph Interpretation: 10/28/16 14:40 EXAM#: TYPE/EXAM: RESULT: [id number] RAD/CHEST X-RAY PORTABLE* Shortness of breath. Semierect portable x-ray. Comparison study September 28, 2016. Cardiomegaly. No evidence of pneumonia, CHF, pleural effusion or pneumothorax. Uncoiled thoracic aorta. No evidence of pleural effusion, or pneumothorax. Intact visualized osseous structures. Degenerative changes of the left shoulder joint. Impression. No evidence of active pulmonary disease. Reported By: Vikas So MD 10/28/16 1421 - Medications Given in the ED: ED Medications Discontinued Medications Generic Name Dose Route Start Last Admin Trade Name Freq PRN Reason Stop Dose Admin Albuterol/Ipratropium 1 amp 10/28/16 12:23 10/28/16 12:34 Duoneb - NEB 10/28/16 12:24 1 amp ONCE ONE Administration <Cam Palomo - Last Filed: 10/28/16 14:39> - LABORATORY CBC & Chemistry Diagram: 10/28/16 13:21 10/28/16 13:21 - ADDITIONAL ORDERS Additional order review: Laboratory Results 10/28/16 13:21 Sodium 142 Potassium 3.0 L Chloride 101 Carbon Dioxide 32 Anion Gap 9 BUN 10 D Creatinine 1.0 Creat Clearance w eGFR 56.18 Random Glucose 102 Calcium 8.3 L Total Bilirubin 0.6 AST 38 H D ALT 65 Alkaline Phosphatase 121 H Creatine Kinase 82 Troponin I < 0.02 B-Natriuretic Peptide 291.72 H Total Protein 8.0 Albumin 3.5 10/28/16 13:21 RBC 4.52 MCV 77.7 L MCHC 31.6 L RDW 19.9 H MPV 6.8 L Neutrophils % 48.8 Lymphocytes % 36.0 D Monocytes % 13.2 H Eosinophils % 1.5 Basophils % 0.5 - RADIOLOGY Radiology Studies Ordered: Category Date Time Status CXRPORT [CHEST X-RAY PORTABLE*] [RAD] Stat Radiology 10/28/16 12:22 Completed - Medications Given in the ED: ED Medications Discontinued Medications Generic Name Dose Route Start Last Admin Trade Name Sebastian PRN Reason Stop Dose Admin Albuterol/Ipratropium 1 amp 10/28/16 12:23 10/28/16 12:34 Duoneb - NEB 10/28/16 12:24 1 amp ONCE ONE Administration <Barbie Li - Last Filed: 10/28/16 18:08> Medical Decision Making - Medical Decision Making 10/28/16 14:31 61 yo F wit h/o copd, HTN, DM HEP C, CAD / CA treated tuberculosis. here wtih 2 - 3 days of sob, and weakness. no cough no f/c no mod factors. no cp no leg swelling. no h/o pe or dvt. sob is worse with walking. on exam awake alert . lungs bilateral wheezing, normal effort. heart RRR no mrg abd soft NT ND. skin warm and dry. ext no pitting edema. nuero awake alrert oriented x 3. plan: differential angina, chf pneumonia copd exacerbation. plan cxr lab nebs ekg reassess. steroids 10/28/16 18:08 pt felt better after nebs. dc home with steroids and inhaler <Barbie Li - Last Filed: 10/28/16 18:08> *DC/Admit/Observation/Transfer - Attestations Scribe Attestion: 10/28/16 14:38 Documentation prepared by Cam Palomo, acting as medical records receptionist for Barbie Li MD. <Cam Palomo - Last Filed: 10/28/16 14:39> - Discharge Dispostion Admit: No <Barbie Li - Last Filed: 10/28/16 18:08> Diagnosis at time of Disposition: COPD exacerbation - Prescriptions Prescriptions: Prednisone [Deltasone -] 20 mg PO DAILY #7 tablet Albuterol Sulfate Inhaler - [Ventolin HFA Inhaler -] 2 inh PO Q4H PRN #1 inh PRN Reason: Shortness Of Breath - Referrals Referrals: Nora Moses MD [Primary Care Provider] - - Patient Instructions Printed Discharge Instructions: Chronic Obstructive Pulmonary Disease Additional Instructions: you should take prednisone 20 mg once daily x 5 days use albuterol inhaler 2 puffs every 4 hours as needed for wheezing and coughing . you need to quit smoking. follow up with your primary doctor. return for any problems or concern. Print Language: LATVIAN
[2016-10-28] MEDS ORDERED: DEXAMETHASONE SOD PHOSPHATE 10 MG/1 ML VIAL ONE (15:07)
--- NOTE | 2016-10-28 15:45 | EKG ---
Test Reason : Blood Pressure : / mmHG Vent. Rate : 064 BPM Atrial Rate : 064 BPM P-R Int : 178 ms QRS Dur : 080 ms QT Int : 450 ms P-R-T Axes : 066 029 071 degrees QTc Int : 464 ms NORMAL SINUS RHYTHM NONSPECIFIC ST ABNORMALITY WHEN COMPARED WITH ECG OF 28-SEP-2016 10:56, NO SIGNIFICANT CHANGE WAS FOUND Confirmed by ART ANTHONY MD ([id number]) on 10/28/2016 3:44:57 PM Referred By: Confirmed By:ART ANTHONY MD
[2016-10-28 17:30] VITALS: BP 120/70; PULSE 84
== END 2016-10-28 17:30 | disposition home or self-care (01) ==
LOC: JER 11:14
PROC: 3E0F7GC Introduction of Other Therapeutic Substance into Respiratory Tract, Via Natural or Artificial Opening (ICD-10-PCS; principal; 2016-10-28)
PROC: 3E0333Z Introduction of Anti-inflammatory into Peripheral Vein, Percutaneous Approach (ICD-10-PCS; 2016-10-28)
DX: J44.1 Chronic obstructive pulmonary disease with (acute) exacerbation (principal); I25.2 Old myocardial infarction; I10 Essential (primary) hypertension; E11.9 Type 2 diabetes mellitus without complications; N28.9 Disorder of kidney and ureter, unspecified; F31.9 Bipolar disorder, unspecified; Z86.11 Personal history of tuberculosis; Z86.19 Personal history of other infectious and parasitic diseases
CPT/HCPCS: 36415; 71010-TC; 80053; 82550; 83880; 84484; 85025; 93005; 93010; 94640; 96374; 99283-25

== ENCOUNTER 2016-11-20 08:18 | Emergency (ER) | payer OTHER ==
--- NOTE | 2016-11-20 08:38 | PDOC ---
History of Present Illness - General Stated Complaint: HEADACHE S/P FALL Time Seen by Provider: 11/20/16 08:20 History Source: Patient Exam Limitations: No Limitations - History of Present Illness Initial Comments: 11/20/16 08:53 CC: Fall - possibly mechanical Patient is a 61 y.o female with a PMH Obesity, Depression, Renal Insufficiency, NIDDM, HTN, Sciatica as well as [place] and CVA (12/2015) who presents to the ED today following a fall at home. Patient states she was in her bedroom walking to the living room when she felt "dizzy" and fell to the ground bracing her fall with her right hand and rolling onto her right side. Patient denies any head trauma or loss of consciousness and states she felt as if the room was spinning. Patient notes this sensation has occurred on 1-2 prior occasions which she associated similarly with running out of her psychiatric medications (Zyprexa 15 mg QD; Klonopin 0.5 mg QD PRN) however she did not fall on those occasions. Patient c/o of a throbbing wrist pain as well as medial R leg pain. ROS is positive for headache, consistent with patient's migraines and negative for chest pain, shortness of breath, diaphoresis or abdominal pain. PMH: Renal Insufficiency, NIDDM, HTN, [place], [place] & CVA (12/2015) Past Surgical:Hysterectomy 2/2 to Fibroids SH: (+) nicotine: 4 cigarettes daily; (+) alcohol:1-2 beers weekly; (-) marijuana/cocaine/heroin Allergies: Penicillin, Ibuprofen PCP: Nora Moses Past History - Past Medical History Allergies/Adverse Reactions: Allergies Allergy/AdvReac Type Severity Reaction Status Date / Time ibuprofen [From Motrin IB] Allergy Verified 11/20/16 08:28 metformin Allergy Verified 11/20/16 08:28 Penicillins Allergy Verified 11/20/16 08:28 Home Medications: Ambulatory Orders Escitalopram Oxalate [Lexapro -] 20 mg PO DAILY 09/14/15 Olanzapine [Zyprexa -] 5 mg PO HS 09/14/15 Aspirin Coated [Ecotrin -] 81 mg PO DAILY #30 tablet.ec 09/16/15 Amlodipine Besylate [Norvasc -] 10 mg PO DAILY 02/25/16 Carvedilol [Coreg -] 12.5 mg PO BID 02/25/16 Hydralazine HCl [Apresoline -] 50 mg PO DAILY 02/25/16 Rosuvastatin Calcium [Crestor] 10 mg PO DAILY 08/06/16 Oxycodone HCl/Acetaminophen [Percocet 5-325 mg Tablet] 1 tab PO Q4H #10 tablet MDD 4 08/09/16 Albuterol Sulfate Inhaler - [Ventolin HFA Inhaler -] 2 inh PO Q4H PRN #1 inh 11/07 Clindamycin [Cleocin -] 300 mg PO TID #21 capsule 09/28/16 Prednisone [Deltasone -] 20 mg PO DAILY #7 tablet 10/28/16 Albuterol Sulfate Inhaler - [Ventolin HFA Inhaler -] 2 inh PO Q4H PRN #1 inh Clonazepam [KlonoPIN] 0.5 mg GT PRN PRN #10 tablet MDD 0.5 11/20/16 Olanzapine [Zyprexa] 5 mg PO DAILY #10 tablet 11/20/16 Olanzapine [Zyprexa] 10 mg PO DAILY #10 tablet 11/20/16 CVA: Yes COPD: Yes Diabetes: Yes HTN: Yes Liver Disease: Yes (HEPATITIS C.) Psychiatric Problems: Yes Suicide Attempt (Hx): No - Surgical History Abdominal Surgery: Yes - Psycho/Social/Smoking Cessation Hx Anxiety: No Suicidal Ideation: No Smoking History: Current every day smoker Have you smoked in the past 12 months: Yes Number of Cigarettes Smoked Daily: 10 'Breaking Loose' booklet given: 02/25/16 Hx Alcohol Use: Yes (occassionally.) Drug/Substance Use Hx: No Substance Use Type: Alcohol Hx Substance Use Treatment: No Review of Systems - Review of Systems Constitutional: No: Chills, Diaphoresis, Night Sweats, Weakness HEENTM: No: Blurred Vision, Double Vision, Tinnitus, Throat Pain Respiratory: No: Cough, Orthopnea, Shortness of Breath, Wheezing Cardiac (ROS): Yes: Lightheadedness. No: Chest Pain, Edema, Palpitations ABD/GI: No: Constipated, Diarrhea : No: Burning, Dysuria Musculoskeletal: Yes: Muscle Pain, Muscle Weakness. No: Back Pain, Joint Pain Integumentary: No: Bruising, Erythema, Flushing, Lesions Neurological: Yes: Headache Psychiatric: Yes: Anxiety, Depression All Other Systems: Reviewed and Negative *Physical Exam - Physical Exam General Appearance: Yes: Nourished, Appropriately Dressed HEENT: positive: EOMI, ANNA Neck: positive: Trachea midline, Supple Respiratory/Chest: positive: Lungs Clear, Normal Breath Sounds Cardiovascular: positive: Regular Rhythm, Regular Rate, S1, S2 Gastrointestinal/Abdominal: positive: Normal Bowel Sounds, Soft Musculoskeletal: positive: Normal Inspection, Other (RUE (wrist): full ROM, intact sensation, 5/5 strength, TTP in R dorsal medial wrist, no anatomic snuffbox tenderness; 3+ radial pulse; RLE: full ROM, 3/5 strength in B/L LE, palpable dorsalis pedis and popliteal 3+ pulse) Extremity: positive: Normal Capillary Refill, Normal Inspection Integumentary: positive: Normal Color, Dry, Warm 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 female who presents following a fall at home earlier today. Differential Diagnosis includes mechanical fall vs. fall 2/2 to dehydration/electrolyte imbalance (patient lives alone and notes limited PO intake, likely 2/2 underlying psychiatric disorder). On PE, there is no appreciable snuffbox tenderness and patient has full ROM of her R wrist with 5/ 5 strength with significant tenderness to palpation of the dorsal medial surface of her wrist. Patient has 3/5 strength in her B/L LE. As patient is a limited historian, CT Head was obtained to rule out any pathology 2/2 to head trauma with fall and showed no acute intracranial process. Xray of R wrist and RLE (knees) as well as B/L Hip X-rays obtained showed no acute fracture and patient's pain decreased considerably with oxycodone. Moreover, patient's BMP showed hypokalemia (3.1). Patient's K+ was repleted and patient was discharged with a splint, RICE instruction and information to follow up with orthopedic surgery. Patient was also given a limited 10 day supply for her psychiatric medications (Zyprexa 15 mg QD and Klonopin 0.5 mg) as she has an follow-up appointment with her psychiatrist on 12/01/16. *DC/Admit/Observation/Transfer Diagnosis at time of Disposition: Fall Qualifiers: Encounter type: initial encounter Qualified Code(s): W19.XXXA - Unspecified fall, initial encounter - Discharge Dispostion Disposition: HOME Condition at time of disposition: Improved - Prescriptions Prescriptions: Clonazepam [KlonoPIN] 0.5 mg GT PRN PRN #10 tablet MDD 0.5 PRN Reason: Anxiety Albuterol Sulfate Inhaler - [Ventolin HFA Inhaler -] 2 inh PO Q4H PRN #1 inh PRN Reason: Shortness Of Breath Olanzapine [Zyprexa] 10 mg PO DAILY #10 tablet Olanzapine [Zyprexa] 5 mg PO DAILY #10 tablet - Referrals Referrals: Nora Moses MD [Primary Care Provider] - Calos Fagan MD [Staff Physician] - - Patient Instructions Additional Instructions: Please call and make a follow-up appointment with Dr. Calos Fagan for evaluation of your wrist pain. - Attestations Physician Attestion: 11/20/16 12:59 I, Dr. Mariia Stewatr, attest that this document has been prepared under my direction and personally reviewed by me in its entirety. I further attest, that it accurately reflects all work, treatment, procedures and medical decision -making performed by me.
[2016-11-20] MEDS ORDERED: OLANZapine 7.5 MG TABLET PO ONE (09:13)
[2016-11-20 09:17] VITALS: BMI 44.6
[2016-11-20] MEDS ORDERED: oxyCODONE HCL 5 MG TABLET PO ONE (09:19)
[2016-11-20] MEDS ORDERED: oxyCODONE HCL 5 MG TABLET ONE (09:19)
[2016-11-20] MEDS ORDERED: OLANZapine 10 MG TABLET ONE (09:19)
[2016-11-20 09:25] LABS: MCHC 31.7 g/dl (32.0-36.0); MEAN PLT VOLUME 7.4 fl (7.5-11.1); PLATELET COUNT 220 K/MM3 (134-434); RDW 20.5 % (11.6-15.6)
--- NOTE | 2016-11-20 09:50 | PDOC ---
Attending Attestation - Resident Resident Name: Mariia Stewart - ED Attending Attestation I have performed the following: I have examined & evaluated the patient, The case was reviewed & discussed with the resident, I agree w/resident's findings & plan, Exceptions are as noted - HPI HPI: 11/20/16 10:07 61 year old female with Past medical history of obesity, chronic renal sufficiency, diabetes, hypertension, hepatitis C, tuberculosis, bipolar, sciatica, depression, chronic back pain, [place] and stroke presents to the emergency department for fall. Patient reported that she turned around quickly became briefly dizzy and fell to the ground. She denies head trauma or loss consciousness but complains about right-sided tension-like headache. Patient reports distant history of migraines. Reports it feels somewhat like her migraines. Patient complaining about right wrist pain. She is right-hand dominant. She is also c/o of right knee pain. Denies numbness or weakness. Patient also reports that 3 days ago, she ran out of her Zyprexa 15 mg daily, Klonopin and her Ventolin. - Physicial Exam PE: 11/20/16 10:07 GENERAL: Awake, alert, and fully oriented, in no acute distress. HEAD: No signs of trauma EYES: PERRLA, EOMI, sclera anicteric, conjunctiva clear ENT: Auricles normal inspection, hearing grossly normal, nares patent, oropharynx clear without exudates. NECK: Normal ROM, supple, no lymphadenopathy, JVD, or masses LUNGS: Breath sounds equal, clear to auscultation bilaterally. No wheezes, and no crackles HEART: Regular rate and rhythm, normal S1 and S2, no murmurs, rubs or gallops ABDOMEN: Soft, nontender, normoactive bowel sounds. No guarding, no rebound. No masses EXTREMITIES: RUE: 2+ radial pulse. Sensation intact throughout. Median/Radian/Ulnar nerve function intact. No snuffbox tenderness. No pain on axial loading. Tenderness to palpation of distal radius. No join instability appreciated. RLE: Negative anterior and posterior drawer test. Negative varus and valgus. Mild tenderness to palpation on anterior knee. NEUROLOGICAL: Cranial nerves II through XII grossly intact. Normal speech, normal gait SKIN: Warm, Dry, normal turgor, no rashes or lesions noted. - Medical Decision Making 11/20/16 10:09 Vital Signs Temp Pulse Resp BP Pulse Ox 98.4 F 88 18 117/69 99 11/20/16 09:16 11/20/16 09:16 11/20/16 09:16 11/20/16 09:16 11/20/16 09:16 I suspect that this is likely mechanical and not cardiac or metabolic in origin. However, we'll send labs. Patient is complain about a tension-like headache though she reports it is mild to moderate and tension-like. She denies head trauma. However, given her symptoms, we'll obtain a head CT given the persistence headache after fall. Obtain a right wrist and a right knee x-ray. Pain control. Give patient her home meds and reassess. 11/20/16 12:[address] and imaging unremarkable. Pt re-examined. Noted to have very minimal tenderness at wrist. Full range of motion with no difficulty. Likely wrist splint. Removal wrist splint applied. RICE therapy. If labs unremarkable, pt can be d/c'd. Heart Score/ECG Review #1 ECG reviewed & interpreted by me at: 09:00 11/20/16 09:43 NSR 57, no std/rebecca, normal axis, normal intervals, QTC 463 msec. no brugada, no HOCM, no WPW
[2016-11-20 12:05] LABS: ALBUMIN 3.3 g/dl (3.4-5.0); ANION GAP 7 (8-16); BILIRUBIN,TOTAL 0.4 mg/dL (0.2-1.0); CALCIUM 8.2 mg/dL (8.5-10.1); CO2 28 mmol/L (21-32); CREATININE 0.9 mg/dL (0.55-1.02); GLUCOSE,RANDOM 76 mg/dL (74-106); SGOT/AST 51 U/L (15-37); SGPT/ALT 59 U/L (12-78); TOT PROT 7.3 g/dl (6.4-8.2)
[2016-11-20 12:06] LABS: ALK PHOS 165 U/L (45-117)
[2016-11-20] MEDS ORDERED: POTASSIUM CHLORIDE TABS 20 MEQ TABLET.ER (FP) PO ONE ×2 (12:29→12:33)
[2016-11-20 13:34] VITALS: BP 129/84; PULSE 78; TEMP 98
--- NOTE | 2016-11-20 16:51 | EKG ---
Test Reason : Blood Pressure : / mmHG Vent. Rate : 057 BPM Atrial Rate : 057 BPM P-R Int : 186 ms QRS Dur : 080 ms QT Int : 476 ms P-R-T Axes : 066 043 074 degrees QTc Int : 463 ms SINUS BRADYCARDIA POSSIBLE LEFT ATRIAL ENLARGEMENT BORDERLINE ECG WHEN COMPARED WITH ECG OF 28-OCT-2016 11:34, NO SIGNIFICANT CHANGE WAS FOUND CORRELATE CLINICALLY Confirmed by STEWART PASTOR MD ([id number]) on 11/20/2016 4:51:28 PM Referred By: Confirmed By:STEWART PASTOR MD
== END 2016-11-20 14:02 | disposition home or self-care (01) ==
LOC: JER 08:18
PROC: 2W3CX1Z Immobilization of Right Lower Arm using Splint (ICD-10-PCS; principal; 2016-11-20)
DX: M25.531 Pain in right wrist (principal); W18.39XA Other fall on same level, initial encounter; Y93.89 Activity, other specified; Y92.032 Bedroom in apartment as the place of occurrence of the external cause; I25.2 Old myocardial infarction; I10 Essential (primary) hypertension; E11.9 Type 2 diabetes mellitus without complications; Z79.84 Long term (current) use of oral hypoglycemic drugs; J44.9 Chronic obstructive pulmonary disease, unspecified; M54.40 Lumbago with sciatica, unspecified side; F31.9 Bipolar disorder, unspecified; E87.6 Hypokalemia; Z86.73 Personal history of transient ischemic attack (TIA), and cerebral infarction without residual deficits
CPT/HCPCS: 29125; 36415; 70450-TC; 73090-TC-RT; 73110-TC-RT; 73130-TC-RT; 73502-TC-LT; 73523-TC; 73562-TC-RT; 80053; 85027; 93005; 93010; 99283-25

== ENCOUNTER 2016-12-03 09:57 | Emergency (ER) | payer OTHER ==
[2016-12-03] MEDS ORDERED: methylPREDNISolone NA SUCC 125 MG/2 ML VIAL ONE (10:01)
[2016-12-03 10:12] VITALS: TEMP 98; BMI 32.5
[2016-12-03] MEDS ORDERED: ALBUTEROL SO4 2.5/IPRATROPIUM 0.5 INH SOL 3 ML VIAL.NEB. NEB ONE (10:23)
[2016-12-03] MEDS ORDERED: methylPREDNISolone NA SUCC 125 MG/2 ML VIAL IVPB ONE (10:24)
[2016-12-03] MEDS ORDERED: AZITHROMYCIN 250 MG TABLET (FP) PO ONE (10:30)
--- NOTE | 2016-12-03 10:36 | PDOC ---
History of Present Illness - General Chief Complaint: Shortness of Breath Stated Complaint: DIFFICULTY BREATHINGS Time Seen by Provider: 12/03/16 10:20 History Source: Patient - History of Present Illness Timing/Duration: reports: yesterday Associated Symptoms: reports: chest pain/soreness, cough, shortness of breath, wheezing. denies: fever/chills Past History - Past Medical History Allergies/Adverse Reactions: Allergies Allergy/AdvReac Type Severity Reaction Status Date / Time ibuprofen [From Motrin IB] Allergy Verified 12/03/16 10:10 metformin Allergy Verified 12/03/16 10:10 Penicillins Allergy Verified 12/03/16 10:10 Home Medications: Ambulatory Orders Escitalopram Oxalate [Lexapro -] 20 mg PO DAILY 09/14/15 Olanzapine [Zyprexa -] 10 mg PO HS 09/14/15 Aspirin Coated [Ecotrin -] 81 mg PO DAILY #30 tablet.ec 09/16/15 Amlodipine Besylate [Norvasc -] 10 mg PO DAILY 02/25/16 Carvedilol [Coreg -] 12.5 mg PO BID 02/25/16 Hydralazine HCl [Apresoline -] 50 mg PO TID 02/25/16 Rosuvastatin Calcium [Crestor] 10 mg PO DAILY 08/06/16 Albuterol Sulfate Inhaler - [Ventolin HFA Inhaler -] 2 inh PO Q4H PRN #1 inh Azithromycin 250 mg PO DAILY #4 tablet 12/03/16 Clonazepam [KlonoPIN] 0.5 mg PO DAILY PRN MDD 0.5 12/03/16 Hydrocodone/Acetaminophen [Vicodin Hp 10-300 mg Tablet] 1 each PO Q6H PRN Prednisone [Deltasone -] 40 mg PO DAILY #8 tablet 12/03/16 CVA: Yes COPD: Yes Diabetes: Yes HTN: Yes Liver Disease: Yes (HEPATITIS C.) Psychiatric Problems: Yes Suicide Attempt (Hx): No - Surgical History Abdominal Surgery: Yes - Psycho/Social/Smoking Cessation Hx Anxiety: No Suicidal Ideation: No Smoking History: Current every day smoker Have you smoked in the past 12 months: Yes Number of Cigarettes Smoked Daily: 6 Information on smoking cessation initiated: No 'Breaking Loose' booklet given: 02/25/16 Hx Alcohol Use: Yes Drug/Substance Use Hx: No Substance Use Type: Alcohol Hx Substance Use Treatment: No Review of Systems - Review of Systems Constitutional: No: Chills, Fever Respiratory: Yes: Cough, Shortness of Breath, Wheezing Cardiac (ROS): Yes: Chest Tightness *Physical Exam - Vital Signs Last Vital Signs Temp Pulse Resp BP Pulse Ox 98 F 76 18 115/75 93 L 12/03/16 10:10 12/03/16 10:10 12/03/16 10:10 12/03/16 10:10 12/03/16 10:10 - Physical Exam General Appearance: Yes: Appropriately Dressed, Mild Distress HEENT: positive: Normal Voice Neck: positive: Supple Respiratory/Chest: positive: Respiratory Distress, Wheezing Cardiovascular: positive: Regular Rate, S1, S2 Gastrointestinal/Abdominal: positive: Soft. negative: Tender Extremity: positive: Pedal Edema Integumentary: positive: Dry, Warm Neurologic: positive: Fully Oriented, Alert, Normal Mood/Affect ED Treatment Course - LABORATORY CBC & Chemistry Diagram: 12/03/16 10:44 12/03/16 10:44 - Medications Given in the ED: ED Medications Discontinued Medications Generic Name Dose Route Start Last Admin Trade Name Freq PRN Reason Stop Dose Admin Albuterol/Ipratropium 2 amp 12/03/16 10:23 12/03/16 10:24 Duoneb - NEB 12/03/16 10:24 2 amp NOW ONE Administration Methylprednisolone Sodium Succinate 125 mg 12/03/16 10:24 12/03/16 10:24 Solu-Medrol - IVPB 12/03/16 10:25 125 mg NOW ONE Administration Medical Decision Making - Medical Decision Making 12/03/16 10:32 61 yo F, morbidly obesity, hypertension, CAD, [place] x 1, chronic edema (improving per pt), CVA with no residual deficits, COPD, not on oxygen, continues to smokes , here with shortness of breath with chest tightness and wheezing since yesterday. Not relieved with medication at home. Also complaining of dry cough , no fever or chills. Denies admission for COPD in the past See exam COPD exacerbation Hypoxic but able to speak in full sentences w/ diffuse wheezing on exam -nebs -pred -abx -labs -CXR -EKG -reassess 12/03/16 10:35 12/03/16 13:12 12/03/16 13:12 12/03/16 13:13 Chest x-ray reveals some congestive changes with unremarkable labs. Pt reports feeling significantly better. Lungs clear on re-eval with improvement in vitals. Patient able to ambulate without shortness of breath. DC with Z-Pack and Pred burst to follow-up with PMD. Reasons to return discussed with patient. Smoking cessation strongly encouraged *DC/Admit/Observation/Transfer Diagnosis at time of Disposition: COPD exacerbation - Discharge Dispostion Disposition: HOME Condition at time of disposition: Improved - Prescriptions Prescriptions: Azithromycin 250 mg PO DAILY #4 tablet Prednisone [Deltasone -] 40 mg PO DAILY #8 tablet - Patient Instructions Printed Discharge Instructions: DI for Chronic Obstructive Pulmonary Disease, Serious Ways to Stop Smoking Additional Instructions: Take antibiotics as prescribed and return to ER for worsening of symptoms. Follow-up with PMD otherwise
[2016-12-03] MEDS ORDERED: AZITHROMYCIN 250 MG TABLET (FP) ONE (10:46)
[2016-12-03 10:54] LABS: BASOPHIL 0.4 % (0-2.0); EOSINOPHIL 0.7 % (0-4.5); MCH 24.8 pg (25.7-33.7); MEAN CELL VOLUME 79.9 fl (80-96); MEAN PLT VOLUME 6.9 fl (7.5-11.1); PLATELET COUNT 215 K/MM3 (134-434); RDW 19.7 % (11.6-15.6); WHITE BLOOD COUNT 5.4 K/mm3 (4.0-10.0)
[2016-12-03 11:23] LABS: ALBUMIN 3.2 g/dl (3.4-5.0); ANION GAP 9 (8-16); CALCIUM 7.7 mg/dL (8.5-10.1); CO2 26 mmol/L (21-32); GLUCOSE,RANDOM 102 mg/dL (74-106)
[2016-12-03 11:31] LABS: ALK PHOS 128 U/L (45-117); BILIRUBIN,TOTAL 0.5 mg/dL (0.2-1.0); CPK 114 IU/L (26-192); CREATININE 1.1 mg/dL (0.55-1.02); SGOT/AST 71 U/L (15-37); SGPT/ALT 50 U/L (12-78); TOT PROT 7.4 g/dl (6.4-8.2); TROPONIN I < 0.02 ng/ml (0.00-0.05)
--- NOTE | 2016-12-03 13:13 | EKG ---
Test Reason : Blood Pressure : / mmHG Vent. Rate : 072 BPM Atrial Rate : 072 BPM P-R Int : 192 ms QRS Dur : 086 ms QT Int : 442 ms P-R-T Axes : 055 012 045 degrees QTc Int : 483 ms NORMAL SINUS RHYTHM NORMAL ECG WHEN COMPARED WITH ECG OF 20-NOV-2016 08:53, NO SIGNIFICANT CHANGE WAS FOUND Confirmed by MARI CASSIDY MD ([id number]) on 12/03/2016 1:13:51 PM Referred By: Confirmed By:MARI CASSIDY MD
[2016-12-03 13:35] VITALS: BP 119/70; PULSE 70
== END 2016-12-03 13:35 | disposition home or self-care (01) ==
LOC: JER 09:57
PROC: 3E0F7GC Introduction of Other Therapeutic Substance into Respiratory Tract, Via Natural or Artificial Opening (ICD-10-PCS; principal; 2016-12-03)
PROC: 3E033GC Introduction of Other Therapeutic Substance into Peripheral Vein, Percutaneous Approach (ICD-10-PCS; 2016-12-03)
DX: J44.9 Chronic obstructive pulmonary disease, unspecified (principal); J45.901 Unspecified asthma with (acute) exacerbation; I25.10 Atherosclerotic heart disease of native coronary artery without angina pectoris; I25.2 Old myocardial infarction; Z86.73 Personal history of transient ischemic attack (TIA), and cerebral infarction without residual deficits; F17.210 Nicotine dependence, cigarettes, uncomplicated
CPT/HCPCS: 36415; 71010-TC; 80053; 83880; 84484; 85025; 93005; 93010; 94640; 96374; 99284-25

== ENCOUNTER → 2016-12-05 | Emergency (ER) | payer OTHER ==
[~2016-12-05] MED LIST: ALBUTEROL SO4 2.5/IPRATROPIUM 0.5 INH SOL 3 ML VIAL.NEB. NEB ONE; AZITHROMYCIN 250 MG TABLET (FP) ONE; AZITHROMYCIN 250 MG TABLET (FP) PO ONE; DEXAMETHASONE SOD PHOSPHATE 10 MG/1 ML VIAL IVPUSH ONE; DEXAMETHASONE SOD PHOSPHATE 10 MG/1 ML VIAL ONE; clonazePAM 0.5 MG TABLET ONE; clonazePAM 0.5 MG TABLET PO ONE; morphine CARPU-JECT 4 MG/1 ML DISP.SYRIN IVPUSH ONE; morphine CARPU-JECT 4 MG/1 ML DISP.SYRIN ONE
[2016-12-05 01:38] VITALS: TEMP 98; BMI 37.5
--- NOTE | 2016-12-05 02:27 | PDOC ---
History of Present Illness - General History Source: Patient Exam Limitations: No Limitations - History of Present Illness Initial Comments: CHIEF COMPLAINT: 61 y/o afebrile female with PMH NIDDM, HTN, HLD, COPD, anxiety , depression, ACS ([place] 12/2015), CVA without residual deficits c/o worsening SOB since yesterday. HISTORY OF PRESENT ILLNESS: The patient states she has had SOB with productive cough of white/yellow sputum since yesterday. She also has orthopnea and admits her legs are swollen. She admits that her left shoulder and arm have also been hurting since yesterday. She attributed her symptoms to anxiety since she ran out of her Klonopin 2 days ago, but states she cannot take it anymore. She denies fever, runny nose, n/v/d, CP, dizziness, RANGEL, facial drooping, slurred speech, abd pain, back pain, hematuria, dysuria. She is an everyday smoker for the past 45 years but is trying to cut back. she is not on home O2. PCP is Dr. Moses Dockworker is Dr. 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 REVIEW OF SYSTEMS: GENERAL/CONSTITUTIONAL: No fever/chills. No weakness. No weight change. HEAD, EYES, EARS, NOSE AND THROAT: No change in vision. No ear pain or discharge. No sore throat. CARDIOVASCULAR: +SOB. No chest pain. RESPIRATORY: +productive cough, orthopnea and wheezing. No hemoptysis. GASTROINTESTINAL: No abd pain, nausea, vomiting, diarrhea. GENITOURINARY: No dysuria, frequency, or change in urination. MUSCULOSKELETAL: +left shoulder pain. +lower leg swelling. No neck or back pain. SKIN: No rash or easy bruising. NEUROLOGIC: No headache, vertigo, loss of consciousness, or loss of sensation. PHYSICAL EXAM: GENERAL: The patient is awake, alert, and fully oriented, in moderate respiratory distress. The patient can only speak 3-4 words per breath. She is currently on 4L O2 via nasal canula. HEAD: Normal with no signs of trauma. ENT: Pupils equal, round and reactive to light, extraocular movements intact, sclera anicteric, conjunctiva clear. Neck supple. Audible wheezing LUNGS: Very distant lung sounds. Faint expiratory wheezing in left posterior napoles. Use of accessory muscles to help with breathing. CV: RRR, S1/S2, no MRG. Cap refill < 2 sec. ABDOMEN: Soft, non-distended, non-tender even to deep palpation, no hepatomegaly or splenomegaly, no masses. EXTREMITIES: 2+ pitting edema b/l LE 1/2 way up both calves. No warmth or calf TTP b/l. Pain with palpation of left AC joint. Full flexion, extension, abduction and adduction of left arm. NEUROLOGICAL: Normal speech, normal gait. CN II-XII grossly intact. 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 No facial drooping. No slurred speech. A&O x 3. PSYCH: Normal mood, normal affect. SKIN: Warm, dry, normal turgor, no rashes or lesions noted. <Joanie Sellers - Last Filed: 12/05/16 06:51> <Katerina Wasserman - Last Filed: 12/12/16 17:33> - General Chief Complaint: Shortness of Breath Stated Complaint: DIFFICULTY BREATHING Time Seen by Provider: 12/05/16 01:58 Past History - Past Medical History CVA: Yes COPD: Yes Diabetes: Yes HTN: Yes Hypercholesterolemia: Yes Liver Disease: Yes (Hep C) Psychiatric Problems: Yes (Depression, anxiety) Suicide Attempt (Hx): No - Surgical History Abdominal Surgery: Yes - Psycho/Social/Smoking Cessation Hx Anxiety: No Suicidal Ideation: No Smoking History: Current every day smoker Have you smoked in the past 12 months: Yes Number of Cigarettes Smoked Daily: 6 Information on smoking cessation initiated: No 'Breaking Loose' booklet given: 02/25/16 Hx Alcohol Use: No Drug/Substance Use Hx: No Substance Use Type: Alcohol Hx Substance Use Treatment: No <Joanie Sellers - Last Filed: 12/05/16 06:51> <Katerina Wasserman - Last Filed: 12/12/16 17:33> - Past Medical History Allergies/Adverse Reactions: Allergies Allergy/AdvReac Type Severity Reaction Status Date / Time ibuprofen [From Motrin IB] Allergy Verified 12/05/16 01:34 metformin Allergy Verified 12/05/16 01:34 Penicillins Allergy Verified 12/05/16 01:34 Home Medications: Ambulatory Orders Escitalopram Oxalate [Lexapro -] 20 mg PO DAILY 09/14/15 Olanzapine [Zyprexa -] 10 mg PO HS 09/14/15 Aspirin Coated [Ecotrin -] 81 mg PO DAILY #30 tablet.ec 09/16/15 Amlodipine Besylate [Norvasc -] 10 mg PO DAILY 02/25/16 Carvedilol [Coreg -] 12.5 mg PO BID 02/25/16 Hydralazine HCl [Apresoline -] 50 mg PO TID 02/25/16 Rosuvastatin Calcium [Crestor] 10 mg PO DAILY 08/06/16 Albuterol Sulfate Inhaler - [Ventolin HFA Inhaler -] 2 inh PO Q4H PRN #1 inh Clonazepam [KlonoPIN] 0.5 mg PO DAILY PRN MDD 0.5 12/03/16 Hydrocodone/Acetaminophen [Vicodin Hp 10-300 mg Tablet] 1 each PO Q6H PRN Azithromycin [Zithromax 250mg Tablets -] 250 mg PO UTDICT #6 tab 12/05/16 Prednisone [Deltasone -] 40 mg PO DAILY #8 tablet 12/05/16 *Physical Exam - Vital Signs Last Vital Signs Temp Pulse Resp BP Pulse Ox 98.0 F 94 H 20 151/97 94 L 12/05/16 01:34 12/05/16 01:34 12/05/16 01:34 12/05/16 01:34 12/05/16 01:34 <Joanie Sellers - Last Filed: 12/05/16 06:51> - Vital Signs Last Vital Signs Temp Pulse Resp BP Pulse Ox 98.0 F 82 24 145/95 98 12/05/16 01:34 12/05/16 06:31 12/05/16 06:31 12/05/16 06:31 12/05/16 06:31 <Katerina Wasserman - Last Filed: 12/12/16 17:33> Heart Score/ECG Review - ECG Intrepretation Comment:: Twelve-lead EKG was performed and reviewed by Dr. Wasserman. There is normal sinus rhythm with a normal rate. The axis is normal. The intervals are normal. There are no ST or T wave abnormalities. Impression: Normal twelve-lead EKG <Joanie Sellers - Last Filed: 12/05/16 06:51> ED Treatment Course - LABORATORY CBC & Chemistry Diagram: 12/05/16 03:05 12/05/16 03:05 - RADIOLOGY Radiology Studies Ordered: Category Date Time Status CHEST X-RAY PORTABLE* [RAD] Stat Radiology 12/05/16 02:16 Ordered <Joanie Sellers - Last Filed: 12/05/16 06:51> - LABORATORY CBC & Chemistry Diagram: 12/05/16 03:05 12/05/16 03:05 - ADDITIONAL ORDERS Additional order review: 12/05/16 05:48 Urine Culture - Final Urine - Urine Clean Catch Contaminated: Please Repeat 12/05/16 03:05 RBC 3.88 MCV 78.9 L MCHC 31.6 L RDW 19.7 H MPV 7.2 L Neutrophils % 69.2 D Lymphocytes % 16.5 D Monocytes % 13.6 H Eosinophils % 0.2 Basophils % 0.5 - Medications Given in the ED: ED Medications Discontinued Medications Generic Name Dose Route Start Last Admin Trade Name Sebastian PRN Reason Stop Dose Admin Albuterol/Ipratropium 1 amp 12/05/16 02:20 12/05/16 02:39 Duoneb - NEB 12/05/16 02:21 1 amp ONCE ONE Administration Albuterol/Ipratropium 1 amp 12/05/16 03:15 12/05/16 04:43 Duoneb - NEB 12/05/16 03:31 1 amp Q15M JOSLYN Administration Azithromycin 500 mg 12/05/16 04:48 12/05/16 04:55 Zithromax - PO 12/05/16 04:49 500 mg ONCE ONE Administration Clonazepam 0.5 mg 12/05/16 02:17 12/05/16 02:39 Klonopin - PO 12/05/16 02:18 0.5 mg ONCE ONE Administration Dexamethasone Sodium Phosphate 10 mg 12/05/16 04:47 12/05/16 04:55 Decadron Injection - IVPUSH 12/05/16 04:48 10 mg ONCE ONE Administration Morphine Sulfate 4 mg 12/05/16 03:13 12/05/16 03:21 Morphine Injection - IVPUSH 12/05/16 03:14 4 mg ONCE ONE Administration <Katerina Wasserman - Last Filed: 12/12/16 17:33> Medical Decision Making - Medical Decision Making A/P: 61 y/o afebrile female with worsening SOB with productive cough since yesterday, along with orthopnea and LE edema. Plan is as follows: 1. Labs 2. CXR 3. UA/culture 4. EKG 5. Duoneb x 3 6. IV decadron 7. PO azithro 8. O2 via nasal canula CXR IMPRESSION: Cardiomegaly with enlarged pulmonary arteries suspicious for pulmonary artery hypertension. Bibasilar infiltrates are seen could be inflammatory. There are no prior films for comparison. Gave The patient was seen here on 12/03 with the same complaints and was discharged with an Rx for azithromycin and prednisone, neither of which she picked up or started taking. She states she wasn't aware of the prescriptions. After 3 neb treatments, IV decadron and PO azithro the patient still has audible wheezing. Her lung sounds are now diffuse expiratory wheezing. Will admit to obs for serial nebs. Spoke with Dr. Toro who accepts admission. After being admitted, the patient informed me that she needs to sign out against medical advise because she is on probation. I strongly encouraged her to stay as she has audible wheezing, but she is A&O x 3 and insistent. Will send rxs for a zpack and prednisone and instructed her to pickle solution maker today. The patient ambulates without difficulty out of the emergency department. She is alert and oriented and of sound decision making capacity. She leaves AGAINST MEDICAL ADVICE. AMA-AGAINST MEDICAL ADVICE The patient is a 61-year-old female who wants to leave the [facility] Emergency Department before assessment, diagnosis and treatment are completed. The patient has been counseled in regard to the benefits of remaining for treatment and the risks of leaving before medical evaluation and care are provided. These risks are many and include failure to diagnose the condition, failure to provide needed treatment, and a failure to obtain needed specialty care as required. The patient has been informed that failure to complete needed diagnosis and treatment may result in pain, worsening of any medical conditions, possible permanent disability, and . Despite receiving detailed information regarding the benefits of completing care as well as the risks of leaving, the patient has elected to leave. An AMA form was completed. The patient has been told that they are welcome to return to the emergency department at any time should their condition worsen or if they have change their mind. <Joanie Sellers - Last Filed: 12/05/16 06:51> *DC/Admit/Observation/Transfer - Discharge Dispostion Admit: Yes <Joanie Sellers - Last Filed: 12/05/16 06:51> - Attestations Physician Attestion: I reviewed the case with the mid-level practitioner and agree with the mid- level practitioner's assessment, diagnosis and disposition. <Katerina Wasserman - Last Filed: 12/12/16 17:33> Diagnosis at time of Disposition: COPD exacerbation Chronic kidney insufficiency Qualifiers: Chronic kidney disease stage: unspecified stage Qualified Code(s): N18.9 - Chronic kidney disease, unspecified - Discharge Dispostion Disposition: AGAINST MEDICAL ADVICE Condition at time of disposition: Unchanged/Unknown - Prescriptions Prescriptions: Prednisone [Deltasone -] 40 mg PO DAILY #8 tablet Azithromycin [Zithromax 250mg Tablets -] 250 mg PO UTDICT #6 tab - Referrals Referrals: Nora Moses MD [Primary Care Provider] -
[2016-12-05 03:14] LABS: BASOPHIL 0.5 % (0-2.0); EOSINOPHIL 0.2 % (0-4.5); MCH 24.9 pg (25.7-33.7); MCHC 31.6 g/dl (32.0-36.0); MEAN CELL VOLUME 78.9 fl (80-96); MEAN PLT VOLUME 7.2 fl (7.5-11.1); NEUTROPHILS 69.2 % (42.8-82.8); PLATELET COUNT 227 K/MM3 (134-434); RDW 19.7 % (11.6-15.6); WHITE BLOOD COUNT 5.5 K/mm3 (4.0-10.0)
[2016-12-05] MEDS: ALBUTEROL SO4 2.5/IPRATROPIUM 0.5 INH SOL 3 ML VIAL.NEB. NEB SCH ×2 (03:21→04:43)
[2016-12-05 03:57] LABS: ALBUMIN 3.4 g/dl (3.4-5.0); ANION GAP 12 (8-16); BILIRUBIN,TOTAL 0.5 mg/dL (0.2-1.0); CALCIUM 7.5 mg/dL (8.5-10.1); CO2 26 mmol/L (21-32); CPK 161 IU/L (26-192); CREATININE 1.1 mg/dL (0.55-1.02); GLUCOSE,RANDOM 132 mg/dL (74-106); SGPT/ALT 59 U/L (12-78); TOT PROT 7.7 g/dl (6.4-8.2)
[2016-12-05 04:00] LABS: ALK PHOS 152 U/L (45-117); TROPONIN I < 0.02 ng/ml (0.00-0.05)
[2016-12-05 04:05] LABS: SGOT/AST 81 U/L (15-37)
[2016-12-05 05:58] LABS: URINE APPEARANCE CLEAR; URINE BILIRUBIN NEGATIVE (NEGATIVE); URINE BLOOD NEGATIVE (NEGATIVE); URINE COLOR LT. YELLOW; URINE GLUCOSE (UA) NEGATIVE (NEGATIVE); URINE KETONE NEGATIVE (NEGATIVE); URINE LEUK ESTERASE NEGATIVE (NEGATIVE); URINE NITRITE NEGATIVE (NEGATIVE); URINE PROTEIN NEGATIVE (NEGATIVE); URINE UROBILINOGEN 0.2 mg/dL (0.2-1.0)
[2016-12-05 06:32] VITALS: BP 145/95; PULSE 82
--- NOTE | 2016-12-05 09:25 | EKG ---
Test Reason : Blood Pressure : / mmHG Vent. Rate : 089 BPM Atrial Rate : 089 BPM P-R Int : 188 ms QRS Dur : 082 ms QT Int : 400 ms P-R-T Axes : 062 021 051 degrees QTc Int : 486 ms NORMAL SINUS RHYTHM NORMAL ECG NO PREVIOUS ECGS AVAILABLE Confirmed by MALCOM BE MD ([id number]) on 12/05/2016 9:25:24 AM Referred By: Confirmed By:MALCOM BE MD
== END | disposition left against medical advice (07) ==
LOC: JER 01:25
DX: J44.1 Chronic obstructive pulmonary disease with (acute) exacerbation (principal); N18.9 Chronic kidney disease, unspecified
CPT/HCPCS: 36415; 71010-TC; 80053; 81003; 82553; 83880; 84484; 85025; 87086; 93005; 93010; 99283-25

== ENCOUNTER 2016-12-31 10:20 | Emergency (ER) | payer OTHER ==
[2016-12-31 10:36] VITALS: BMI 38.2
[2016-12-31] MEDS ORDERED: traMADol HCL 50 MG TABLET PO ONE (10:37)
--- NOTE | 2016-12-31 10:48 | PDOC ---
History of Present Illness - General Chief Complaint: Injury Stated Complaint: FALL/KNEE PAIN Time Seen by Provider: 12/31/16 10:30 History Source: Patient - History of Present Illness Occurred: reports: this morning Lower Extremity Pain Location: left: knee Method of Injury: Yes: fell Past History - Past Medical History Allergies/Adverse Reactions: Allergies Allergy/AdvReac Type Severity Reaction Status Date / Time ibuprofen [From Motrin IB] Allergy Verified 12/31/16 11:16 metformin Allergy Verified 12/31/16 11:16 Penicillins Allergy Verified 12/31/16 11:16 Home Medications: Ambulatory Orders Escitalopram Oxalate [Lexapro -] 20 mg PO DAILY 09/14/15 Olanzapine [Zyprexa -] 10 mg PO HS 09/14/15 Aspirin Coated [Ecotrin -] 81 mg PO DAILY #30 tablet.ec 09/16/15 Amlodipine Besylate [Norvasc -] 10 mg PO DAILY 02/25/16 Carvedilol [Coreg -] 12.5 mg PO BID 02/25/16 Hydralazine HCl [Apresoline -] 50 mg PO TID 02/25/16 Rosuvastatin Calcium [Crestor] 10 mg PO DAILY 08/06/16 Albuterol Sulfate Inhaler - [Ventolin HFA Inhaler -] 2 inh PO Q4H PRN #1 inh Clonazepam [KlonoPIN] 0.5 mg PO DAILY PRN MDD 0.5 12/03/16 Hydrocodone/Acetaminophen [Vicodin Hp 10-300 mg Tablet] 1 each PO Q6H PRN Azithromycin [Zithromax 250mg Tablets -] 250 mg PO UTDICT #6 tab 12/05/16 Prednisone [Deltasone -] 40 mg PO DAILY #8 tablet 12/05/16 CVA: Yes COPD: Yes Diabetes: Yes HTN: Yes Hypercholesterolemia: Yes Liver Disease: Yes (HEPATITIS C.) Psychiatric Problems: Yes Suicide Attempt (Hx): No - Surgical History Abdominal Surgery: Yes - Psycho/Social/Smoking Cessation Hx Anxiety: No Suicidal Ideation: No Smoking History: Current every day smoker Have you smoked in the past 12 months: Yes Number of Cigarettes Smoked Daily: 6 Information on smoking cessation initiated: No 'Breaking Loose' booklet given: 02/25/16 Hx Alcohol Use: No Drug/Substance Use Hx: No Substance Use Type: Alcohol Hx Substance Use Treatment: No Review of Systems - Review of Systems Musculoskeletal: Yes: Joint Pain, Joint Swelling *Physical Exam - Vital Signs Last Vital Signs Temp Pulse Resp BP Pulse Ox 97.8 F 96 H 18 148/77 95 12/31/16 10:31 12/31/16 10:31 12/31/16 10:31 12/31/16 10:31 12/31/16 10:31 - Physical Exam General Appearance: Yes: Appropriately Dressed. No: Apparent Distress HEENT: positive: Normal Voice Neck: positive: Supple Respiratory/Chest: negative: Respiratory Distress Extremity: positive: Swelling (diffuse swellign to L knee diffusely, able to bear weight) Integumentary: positive: Dry, Warm Neurologic: positive: Fully Oriented, Alert, Normal Mood/Affect ED Treatment Course - RADIOLOGY Radiology Studies Ordered: Category Date Time Status KNEE 3 POS-LEFT [RAD] Stat Radiology 12/31/16 10:36 Ordered Medical Decision Making - Medical Decision Making 12/31/16 10:39 61 y/o morbidly obesed female, h/o HTN, CAD, [place] x 1, chronic edema, CVA w/ no residuals, COPD, not on oxygen, p/w L knee pain and swelling s/p fall. Patient states while getting out of shower she slipped and fell hitting left knee. Able to bear weight but painful. Did not hit her head and denies any other injuries at this time. 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 Josafat applied and pt dc w/ otc meds for pain as needed 12/31/16 11:35 *DC/Admit/Observation/Transfer Diagnosis at time of Disposition: Knee sprain Qualifiers: Encounter type: initial encounter Involved ligament of knee: unspecified ligament Laterality: left Qualified Code(s): S83.92XA - Sprain of unspecified site of left knee, initial encounter - Discharge Dispostion Disposition: HOME Condition at time of disposition: Improved - Referrals Referrals: Nora Moses MD [Primary Care Provider] - Ariel Corado MD [Staff Physician] - - Patient Instructions Printed Discharge Instructions: DI for Knee Sprain Additional Instructions: Your XR was negative for fracture but shows signs of arthritis Take tylenol as needed for pain Follow up with orthopedics if pain persists ceferino 2 weeks
[2016-12-31 11:48] VITALS: BP 145/86; PULSE 85; TEMP 98.2
== END 2016-12-31 11:48 | disposition home or self-care (01) ==
LOC: JER 10:20
DX: S83.8X2A Sprain of other specified parts of left knee, initial encounter (principal); W18.2XXA Fall in (into) shower or empty bathtub, initial encounter; Z91.81 History of falling; Y93.E1 Activity, personal bathing and showering; Y92.031 Bathroom in apartment as the place of occurrence of the external cause; I25.2 Old myocardial infarction; I11.9 Hypertensive heart disease without heart failure; Z86.73 Personal history of transient ischemic attack (TIA), and cerebral infarction without residual deficits; J44.9 Chronic obstructive pulmonary disease, unspecified; B18.2 Chronic viral hepatitis C; F17.210 Nicotine dependence, cigarettes, uncomplicated
CPT/HCPCS: 73562-TC-LT; 99281-25

== ENCOUNTER 2017-03-20 12:13 | Emergency (ER) | payer OTHER ==
[2017-03-20 12:38] VITALS: BMI 37.4
[2017-03-20] MEDS ORDERED: LORazepam 1 MG TABLET PO ONE (12:41)
--- NOTE | 2017-03-20 12:47 | PDOC ---
History of Present Illness - General Chief Complaint: Shortness of Breath Stated Complaint: DIFFICULTY BREATHING Time Seen by Provider: 03/20/17 12:36 History Source: Patient - History of Present Illness Occurred: reports: this afternoon Pain Location: reports: lower extremity, upper extremity Method of Injury: Yes: fall Past History - Past Medical History Allergies/Adverse Reactions: Allergies Allergy/AdvReac Type Severity Reaction Status Date / Time ibuprofen [From Motrin IB] Allergy Verified 03/20/17 12:51 metformin Allergy Verified 03/20/17 12:51 Penicillins Allergy Verified 03/20/17 12:51 Home Medications: Ambulatory Orders Escitalopram Oxalate [Lexapro -] 20 mg PO DAILY 09/14/15 Olanzapine [Zyprexa -] 10 mg PO HS 09/14/15 Aspirin Coated [Ecotrin -] 81 mg PO DAILY #30 tablet.ec 09/16/15 Amlodipine Besylate [Norvasc -] 10 mg PO DAILY 02/25/16 Carvedilol [Coreg -] 12.5 mg PO BID 02/25/16 Hydralazine HCl [Apresoline -] 50 mg PO TID 02/25/16 Rosuvastatin Calcium [Crestor] 10 mg PO DAILY 08/06/16 Albuterol Sulfate Inhaler - [Ventolin HFA Inhaler -] 2 inh PO Q4H PRN #1 inh Hydrocodone/Acetaminophen [Vicodin Hp 10-300 mg Tablet] 1 each PO Q6H PRN Prednisone [Deltasone -] 40 mg PO DAILY #8 tablet 03/20/17 CVA: Yes COPD: Yes Diabetes: Yes HTN: Yes Hypercholesterolemia: Yes Liver Disease: Yes (HEPATITIS C.) Psychiatric Problems: Yes - Surgical History Abdominal Surgery: Yes - Suicide/Smoking/Psychosocial Hx Smoking History: Current every day smoker Have you smoked in the past 12 months: Yes Number of Cigarettes Smoked Daily: 4 Information on smoking cessation initiated: No 'Breaking Loose' booklet given: 02/25/16 Hx Alcohol Use: No Drug/Substance Use Hx: No Substance Use Type: Alcohol Hx Substance Use Treatment: No Review of Systems - Review of Systems Respiratory: Yes: Shortness of Breath, Wheezing Cardiac (ROS): No: Chest Pain Musculoskeletal: Yes: Joint Pain. No: Joint Swelling *Physical Exam - Vital Signs Last Vital Signs Temp Pulse Resp BP Pulse Ox 98.8 F 74 19 140/84 92 L 03/20/17 12:25 03/20/17 12:25 03/20/17 12:25 03/20/17 12:25 03/20/17 12:25 - Physical Exam General Appearance: Yes: Appropriately Dressed. No: Apparent Distress HEENT: positive: Normal Voice Neck: positive: Supple Respiratory/Chest: positive: Lungs Clear, Normal Breath Sounds. negative: Respiratory Distress Cardiovascular: positive: Regular Rate, S1, S2 Gastrointestinal/Abdominal: positive: Soft. negative: Tender Musculoskeletal: positive: Other (no LE deformity, minimal swelling over R 3rd MCP) Integumentary: positive: Dry, Warm Neurologic: positive: Fully Oriented, Alert, Normal Mood/Affect ED Treatment Course - RADIOLOGY Radiology Studies Ordered: Category Date Time Status HAND- RIGHT [RAD] Stat Radiology 03/20/17 12:42 Ordered HIP & PELVIS-LEFT [RAD] Stat Radiology 03/20/17 12:42 Ordered Medical Decision Making - Medical Decision Making 03/20/17 12:49 61 yo F, morbidly obesed, COPD, not oxygen dependent, [place], CVA w/ no residual deficits, DM, HEP C, bipolar, anxiety, sciatica, chronic back pain, here /w L hip and R hand pain s/p fall this afternoon. Pt states while getting out of a van to go to her day program, she tripped on uneven sidewalk and fell using both of her hands to break fall but did injure left hip. Patient states she has been able to walk since fall and adamant that she did not hit her head and denies headache, dizziness, LOC, nausea or vomiting. On baby asa at home. Denies any other injuries at this time. States since she's been in ED she feels very anxious and also feels like her COPD "is acting up" per patient. Also c/o anxiety See exam L hip/R hand pain s/p mechanical fall today No head injury, on baby asa No e/o serious injuries on exam and able to bear weight -Xrays COPD C/o flare since in ED Satin 92% on RA w/ clear chest/lungs and able to speak in full sentences -nebs -prednisone -reassess Anxiety H/o same, on meds -Requesting meds for anxiety now 03/20/17 12:54 03/20/17 12:56 03/20/17 14:21 Xrays neg for fx. Pt improved w/ nebs, lungs clear on exam. Requesting rx for anxiety meds. Pt told to f/u with her pmd or psychiatrist for med refills 03/20/17 14:23 *DC/Admit/Observation/Transfer Diagnosis at time of Disposition: Anxiety Fall Qualifiers: Encounter type: initial encounter Qualified Code(s): W19.XXXA - Unspecified fall, initial encounter COPD (chronic obstructive pulmonary disease) Qualifiers: COPD type: unspecified COPD Qualified Code(s): J44.9 - Chronic obstructive pulmonary disease, unspecified - Discharge Dispostion Disposition: HOME Condition at time of disposition: Improved - Prescriptions Prescriptions: Prednisone [Deltasone -] 40 mg PO DAILY #8 tablet - Referrals Referrals: Nora Moses MD [Primary Care Provider] - - Patient Instructions Additional Instructions: Please follow up with your PMD and psychiatrist - Post Discharge Activity
[2017-03-20] MEDS ORDERED: predniSONE 20 MG TABLET (UD) PO ONE (12:56)
[2017-03-20] MEDS ORDERED: LORazepam 0.5 MG TABLET ONE (13:12)
[2017-03-20] MEDS ORDERED: ALBUTEROL SO4 2.5/IPRATROPIUM 0.5 INH SOL 3 ML VIAL.NEB. NEB ONE ×3 (13:12→14:25)
[2017-03-20] MEDS ORDERED: predniSONE 20 MG TABLET (UD) ONE (13:12)
[2017-03-20] MEDS: ALBUTEROL SO4 2.5/IPRATROPIUM 0.5 INH SOL 3 ML VIAL.NEB. NEB SCH ×4 (13:14→14:26)
--- NOTE | 2017-03-20 13:20 | PDOC ---
*Physical Exam - Vital Signs Last Vital Signs Temp Pulse Resp BP Pulse Ox 98.8 F 74 19 140/84 98 03/20/17 12:25 03/20/17 12:39 03/20/17 12:25 03/20/17 12:25 03/20/17 12:49 ED Treatment Course - Medications Given in the ED: ED Medications Discontinued Medications Generic Name Dose Route Start Last Admin Trade Name Sebastian PRN Reason Stop Dose Admin Lorazepam 1 mg 03/20/17 12:41 03/20/17 13:14 Ativan - PO 03/20/17 12:42 1 mg ONCE ONE Administration Prednisone 60 mg 03/20/17 12:56 03/20/17 13:14 Deltasone - PO 03/20/17 12:57 60 mg ONCE ONE Administration Medical Decision Making - Medical Decision Making 03/20/17 13:20 Pt seen by the Advanced Practice Provider under my direct supervision Ancillary studies reviewed I agree with plan as outlined by the Advanced Practice Provider BHARATI Magdaleno *DC/Admit/Observation/Transfer Diagnosis at time of Disposition: Fall, COPD (chronic obstructive pulmonary disease), Anxiety - Discharge Dispostion Disposition: HOME Condition at time of disposition: Improved - Prescriptions Prescriptions: Prednisone [Deltasone -] 40 mg PO DAILY #8 tablet - Referrals Referrals: Nora Moses MD [Primary Care Provider] - - Patient Instructions Printed Discharge Instructions: Asthma -- Adult Additional Instructions: Please follow up with your PMD and psychiatrist - Post Discharge Activity
[2017-03-20 15:18] VITALS: BP 123/88; PULSE 85; TEMP 98.7
--- NOTE | 2017-03-27 03:20 | HP ---
HISTORY OF PRESENT ILLNESS: History obtained from ED note. Unable to obtain history due to patient somnolence and on BIPAP. She was able to open eyes upon painful stimuli. Patient is a 61 yo, morbidly obese F with a PMHx of HTN, CAD, diabetes, Hep C, CKD stage III-IV, COPD, bipolar/schizophrenia , BIBA, presented because of documented respiratory distress and SOB that started 2 days ago. She has not had any breathing treatments in the past week because she ran out of her albuterol. Upon arrival patient is tachypneic and hypoxic. ER course was notable for: (1) 84% Sat upon arrival (2) CXR: Bilateral Vasc. Congestion, atelectesis (3) 125mg Solu-medrol, 500mg IV levofloxacin Recent Travel: n/a PAST MEDICAL HISTORY: CXR: Bilateral Vasc. Congestion, atelectesis PAST SURGICAL HISTORY: hysterectomy Social History: Smoking: yes, unknown amount Alcohol: n/a Drugs: n/a Family History: Allergies ibuprofen [From Motrin IB] Allergy (Verified 03/20/17 12:51) metformin Allergy (Verified 03/20/17 12:51) Penicillins Allergy (Verified 03/20/17 12:51) HOME MEDICATIONS: Home Medications Medication Instructions Recorded Escitalopram Oxalate [Lexapro -] 20 mg PO DAILY 09/14/15 Olanzapine [Zyprexa -] 10 mg PO HS 09/14/15 Aspirin Coated [Ecotrin -] 81 mg PO DAILY #30 tablet.ec 09/16/15 Amlodipine Besylate [Norvasc -] 10 mg PO DAILY 02/25/16 Carvedilol [Coreg -] 12.5 mg PO BID 02/25/16 Hydralazine HCl [Apresoline -] 50 mg PO TID 02/25/16 Rosuvastatin Calcium [Crestor] 10 mg PO DAILY 08/06/16 Albuterol Sulfate Inhaler - 2 inh PO Q4H PRN #1 inh 11/20/16 [Ventolin HFA Inhaler -] Hydrocodone/Acetaminophen [Vicodin 1 each PO Q6H PRN 12/03/16 Hp 10-300 mg Tablet] Prednisone [Deltasone -] 40 mg PO DAILY #8 tablet 03/20/17 REVIEW OF SYSTEMS CONSTITUTIONAL: unobtainable PHYSICAL EXAMINATION GENERAL: Morbidly obese, Somnolent, reacts to painful stimuli, on BiPap HEAD: Normal with no signs of trauma. EYES: reactive to light, sclera anicteric NOSE, THROAT: nares patent, Moist mucous membranes. LUNGS: b/l scattered expiratory wheezing, decreased air entry b/l HEART: Regular rate and rhythm, normal S1 and S2 without murmur, rub or gallop. ABDOMEN: obese, Soft, nontender, normoactive bowel sounds, UPPER EXTREMITIES: 2+ pulses, No cyanosis. No clubbing. No peripheral edema. LOWER EXTREMITIES: 2+ pulses, 2+ pitting edema b/l EKG: NSR QtC 475 CXR: Bilateral Vasc. Congestion, atelectesis 09/06- ECHO- EF 50 % LV normal. LF fxn nml ASSESSMENT/PLAN: Patient is a 61 yo, morbidly obese F with a PMHx of HTN, CAD, diabetes, Hep C, CKD stage III-IV, COPD, bipolar/schizophrenia , and was found to have acute hypercapnic respiratory failure secondary to acute CHF and COPD exacerbation. #Acute CHF exacerbation -CXR: Bilateral Vasc. Congestion, atelectesis -BNP 1084 -Echo ordered -Lasix 40mg BID -Fluid restriction -Daily weights -I/O -FU Trops in AM -continue BIPAP -FU repeat EKG in AM -Cardiology consulted -FU AM CBC, CMP, Mag, Phos -Obtain Home Med list #Acute COPD exacerbation -PH 7.26, PCO2 60.7 -continue W/ BiPap -Solu-medrol 60mg IV q6 -FU repeat ABG 4am, 7am -Duonebs QIDR -Albuterol Q4 PRN #HTN -held BB due to CHF -will continue monitoring #Diabetes -ISS -BGM #CKD -baseline creatinine 1.4-1.5 -will monitor creatinine and urine output -avoid nephrotoxins #Anemia -stool occult negative -Fe studies -FU Folate and B12 # Hep C -F/u outpatient #FEN -Fluid restriction due to CHF exacerbation -WNL -NPO #PPX -Heparin SQ BID Dispo: ICU placement Visit type - Emergency Visit Emergency Visit: Yes Care time: The patient presented to the Emergency Department on the above date and was hospitalized for further evaluation of their emergent condition. - New Patient This patient is new to me today: Yes Date on this admission: 03/27/17 - Critical Care Critical Care patient: Yes Total Critical Care Time (in minutes): 45 Critical Care Statement: The care of this patient involved high complexity decision making to prevent further life threatening deterioration of the patient 's condition and/or to evaluate & treat vital organ system(s) failure or risk of failure.
== END 2017-03-20 15:47 | disposition home or self-care (01) ==
LOC: JER 12:13
PROC: 3E0F7GC Introduction of Other Therapeutic Substance into Respiratory Tract, Via Natural or Artificial Opening (ICD-10-PCS; principal; 2017-03-20)
PROC: 3E0F7GC Introduction of Other Therapeutic Substance into Respiratory Tract, Via Natural or Artificial Opening (ICD-10-PCS; 2017-03-20)
PROC: 3E0F7GC Introduction of Other Therapeutic Substance into Respiratory Tract, Via Natural or Artificial Opening (ICD-10-PCS; 2017-03-20)
PROC: 3E0F7GC Introduction of Other Therapeutic Substance into Respiratory Tract, Via Natural or Artificial Opening (ICD-10-PCS; 2017-03-20)
DX: J44.9 Chronic obstructive pulmonary disease, unspecified (principal); F41.9 Anxiety disorder, unspecified; M25.552 Pain in left hip; M79.641 Pain in right hand; I25.2 Old myocardial infarction; E11.9 Type 2 diabetes mellitus without complications; Z79.84 Long term (current) use of oral hypoglycemic drugs; B18.2 Chronic viral hepatitis C; F31.9 Bipolar disorder, unspecified; Z86.73 Personal history of transient ischemic attack (TIA), and cerebral infarction without residual deficits; W18.39XA Other fall on same level, initial encounter; Y93.89 Activity, other specified; Y92.480 Sidewalk as the place of occurrence of the external cause
CPT/HCPCS: 36415; 73130-TC-RT; 73523-TC; 82728; 84466; 94640; 99283-25

== ENCOUNTER 2017-03-26 22:13 | Inpatient (IN) | payer OTHER ==
--- NOTE | 2017-03-26 22:26 | PDOC ---
History of Present Illness - General History Source: Patient Exam Limitations: No Limitations - History of Present Illness Initial Comments: 03/27/17 01:40 The patient is a 61 year old female with a significant past medical history of schizophrenia/bipolar disorder, chronic renal insufficiency, HTN,COPD, CAD, and diabetes who presents to the ED, via EMS with 2 days of respiratory distress. The patient reports 2 days of shortness of breath. Upon arrival to the ED patient is tachypneic and hypoxic. Denies fever or chills. Denies chest pain. Denies abdominal pain, nausea, vomiting, or diarrhea. Denies any other symptoms. Social hx: The patient smokes tobacco Surgical hx: Hysterectomy Allergies: Penicillin, Motrin PCP: Dr. Moses in [place] <Clemente Flor - Last Filed: 03/27/17 01:57> <Anita Garcia - Last Filed: 03/27/17 02:14> - General Stated Complaint: Altered Mental Status Time Seen by Provider: 03/26/17 22:22 Past History <Clemente Flor - Last Filed: 03/27/17 01:57> - Past Medical History CVA: Yes COPD: Yes Diabetes: Yes HTN: Yes Hypercholesterolemia: Yes Liver Disease: Yes (HEPATITIS C.) Psychiatric Problems: Yes - Surgical History Abdominal Surgery: Yes - Suicide/Smoking/Psychosocial Hx Smoking History: Current every day smoker Have you smoked in the past 12 months: Yes Number of Cigarettes Smoked Daily: 4 'Breaking Loose' booklet given: 02/25/16 Hx Alcohol Use: No Drug/Substance Use Hx: No Substance Use Type: Alcohol Hx Substance Use Treatment: No <Anita Garcia - Last Filed: 03/27/17 02:14> - Past Medical History Allergies/Adverse Reactions: Allergies Allergy/AdvReac Type Severity Reaction Status Date / Time ibuprofen [From Motrin IB] Allergy Verified 03/20/17 12:51 metformin Allergy Verified 03/20/17 12:51 Penicillins Allergy Verified 03/20/17 12:51 Home Medications: Ambulatory Orders Escitalopram Oxalate [Lexapro -] 20 mg PO DAILY 09/14/15 Olanzapine [Zyprexa -] 10 mg PO HS 09/14/15 Aspirin Coated [Ecotrin -] 81 mg PO DAILY #30 tablet.ec 09/16/15 Amlodipine Besylate [Norvasc -] 10 mg PO DAILY 02/25/16 Carvedilol [Coreg -] 12.5 mg PO BID 02/25/16 Hydralazine HCl [Apresoline -] 50 mg PO TID 02/25/16 Rosuvastatin Calcium [Crestor] 10 mg PO DAILY 08/06/16 Albuterol Sulfate Inhaler - [Ventolin HFA Inhaler -] 2 inh PO Q4H PRN #1 inh Hydrocodone/Acetaminophen [Vicodin Hp 10-300 mg Tablet] 1 each PO Q6H PRN Prednisone [Deltasone -] 40 mg PO DAILY #8 tablet 03/20/17 Review of Systems - Review of Systems Able to Perform ROS?: Yes Comments:: 03/27/17 01:40 CONSTITUTIONAL: Absent: fever, chills, diaphoresis, generalized weakness, malaise, loss of appetite HEENT: Absent: rhinorrhea, nasal congestion, throat pain, throat swelling, difficulty swallowing, mouth swelling, ear pain, eye pain, visual Changes CARDIOVASCULAR: Absent: chest pain, syncope, palpitations, irregular heart rate, lightheadedness , peripheral edema RESPIRATORY: + shortness of breath Absent: dyspnea with exertion, orthopnea, wheezing, stridor, hemoptysis GASTROINTESTINAL: Absent: abdominal pain, abdominal distension, nausea, vomiting, diarrhea, constipation, melena, hematochezia GENITOURINARY: Absent: dysuria, frequency, urgency, hesitancy, hematuria, flank pain, genital pain MUSCULOSKELETAL: Absent: myalgia, arthralgia, joint swelling SKIN: Absent: rash, itching, pallor HEMATOLOGIC/IMMUNOLOGIC: Absent: easy bleeding, easy bruising, lymphadenopathy, frequent infections ENDOCRINE: Absent: unexplained weight gain, unexplained weight loss, heat intolerance, cold intolerance NEUROLOGIC: Absent: headache, focal weakness or paresthesias, dizziness, unsteady gait, seizure, mental status changes, bladder or bowel incontinence PSYCHIATRIC: Absent: anxiety, depression, suicidal or homicidal ideation, hallucinations. All Other Systems: Reviewed and Negative <Clemente Flor - Last Filed: 03/27/17 01:57> *Physical Exam - Vital Signs Last Vital Signs Temp Pulse Resp BP Pulse Ox 98.4 F 66 21 152/76 100 03/26/17 22:36 03/27/17 00:35 03/27/17 00:35 03/27/17 00:35 03/27/17 00:35 - Physical Exam Comments: 03/27/17 01:40 GENERAL: + morbidly obese Awake and alert. No acute distress. HEENT: + macroglossia Normocephalic, atraumatic. PERRLA, EOMI. No conjunctival pallor. Sclera are non- icteric. Moist mucous membranes. Oropharynx is clear. NECK: Supple. Full ROM. No JVD. Carotid pulses 2+ and symmetric, without bruits. No thyromegaly. NCo lymphadenopathy. CARDIOVASCULAR: Regular rate and rhythm. No murmurs, rubs, or gallops. Distal pulses are 2+ and symmetric. PULMONARY: + decreased breath sounds with scattered wheezing. No rales or rhonchi. ABDOMINAL: + Purulent abdomen Soft. Non-tender. No rebound or guarding. No organomegaly. Normoactive bowel sounds. MUSCULOSKELETAL Normal range of motion at all joints. No bony deformities or tenderness. No CVA tenderness. EXTREMITIES: + 1+ pitting edema bilaterally No cyanosis. No clubbing. No calf tenderness. SKIN: Warm and dry. Normal capillary refill. No rashes. No jaundice. NEUROLOGICAL: + Fatigue, somnolent, moving all extremities, no facial droop. In respiratory distress PSYCHIATRIC: Cooperative. Good eye contact. Appropriate mood and affect. <Clemente Flor - Last Filed: 03/27/17 01:57> ED Treatment Course - LABORATORY CBC & Chemistry Diagram: 03/26/17 23:15 03/26/17 23:15 - ADDITIONAL ORDERS Additional order review: Laboratory Results 03/27/17 03/27/17 03/27/17 00:40 00:40 00:19 PT with INR INR Anticoagulation Therapy Y Puncture Site Right radial ABG pH 7.26 L ABG pCO2 at Pt Temp 58.9 H ABG pO2 at Pt Temp 138.0 H D ABG HCO3 25.8 ABG O2 Sat (Measured) 99.0 H ABG O2 Content 11.5 L ABG Base Excess -1.0 Good Test Positive Carboxyhemoglobin Methemoglobin O2 Delivery Device Y Oxygen Flow Rate 70% Vent Mode S/t Vent Rate 16 Mechanical Rate Bipap PEEP 5.0 Pressure Support Vent 16 Sodium Potassium Chloride Carbon Dioxide Anion Gap BUN Creatinine Creat Clearance w eGFR Random Glucose Lactic Acid Calcium Magnesium Total Bilirubin AST ALT Alkaline Phosphatase Creatine Kinase Troponin I B-Natriuretic Peptide Total Protein Albumin Urine Color Urine Appearance Urine pH Ur Specific [place] Urine Protein Urine Glucose (UA) Urine Ketones Urine Blood Urine Nitrite Urine Bilirubin Urine Urobilinogen Stool Occult Blood Negative Opiates Screen Positive Methadone Screen Negative Barbiturate Screen Negative Phencyclidine Screen Negative Ur Amphetamines Screen Negative MDMA (Ecstasy) Screen Negative Benzodiazepines Screen Positive Cocaine Screen Negative U Marijuana (THC) Screen Negative 03/27/17 03/26/17 03/26/17 00:19 23:35 23:15 PT with INR INR Anticoagulation Therapy Y Puncture Site Right radial ABG pH 7.26 L ABG pCO2 at Pt Temp 60.7 H* ABG pO2 at Pt Temp 79.6 L ABG HCO3 26.0 ABG O2 Sat (Measured) 94.2 ABG O2 Content 11.0 L ABG Base Excess -1.0 Good Test Positive Carboxyhemoglobin 4.8 H Methemoglobin 0.6 O2 Delivery Device Nasal canula Oxygen Flow Rate 8 l Vent Mode Y Vent Rate Y Mechanical Rate Y PEEP 0.0 Pressure Support Vent Y Sodium Potassium Chloride Carbon Dioxide Anion Gap BUN Creatinine Creat Clearance w eGFR Random Glucose Lactic Acid Calcium Magnesium Total Bilirubin AST ALT Alkaline Phosphatase Creatine Kinase Troponin I B-Natriuretic Peptide 1084.72 H Total Protein Albumin Urine Color Ltyellow Urine Appearance Clear Urine pH 5.0 Ur Specific [place] 1.009 Urine Protein Negative Urine Glucose (UA) Negative Urine Ketones Negative Urine Blood Negative Urine Nitrite Negative Urine Bilirubin Negative Urine Urobilinogen Negative Stool Occult Blood Opiates Screen Methadone Screen Barbiturate Screen Phencyclidine Screen Ur Amphetamines Screen MDMA (Ecstasy) Screen Benzodiazepines Screen Cocaine Screen U Marijuana (THC) Screen 03/26/17 03/26/17 03/26/17 23:15 23:15 23:15 PT with INR 11.00 INR 0.97 Anticoagulation Therapy Puncture Site ABG pH ABG pCO2 at Pt Temp ABG pO2 at Pt Temp ABG HCO3 ABG O2 Sat (Measured) ABG O2 Content ABG Base Excess Good Test Carboxyhemoglobin Methemoglobin O2 Delivery Device Oxygen Flow Rate Vent Mode Vent Rate Mechanical Rate PEEP Pressure Support Vent Sodium Potassium Chloride Carbon Dioxide Anion Gap BUN Creatinine Creat Clearance w eGFR Random Glucose Lactic Acid 1.1 Calcium Magnesium Total Bilirubin AST ALT Alkaline Phosphatase Creatine Kinase 65 Troponin I < 0.02 B-Natriuretic Peptide Total Protein Albumin Urine Color Urine Appearance Urine pH Ur Specific [place] Urine Protein Urine Glucose (UA) Urine Ketones Urine Blood Urine Nitrite Urine Bilirubin Urine Urobilinogen Stool Occult Blood Opiates Screen Methadone Screen Barbiturate Screen Phencyclidine Screen Ur Amphetamines Screen MDMA (Ecstasy) Screen Benzodiazepines Screen Cocaine Screen U Marijuana (THC) Screen 03/26/17 23:15 PT with INR INR Anticoagulation Therapy Puncture Site ABG pH ABG pCO2 at Pt Temp ABG pO2 at Pt Temp ABG HCO3 ABG O2 Sat (Measured) ABG O2 Content ABG Base Excess Good Test Carboxyhemoglobin Methemoglobin O2 Delivery Device Oxygen Flow Rate Vent Mode Vent Rate Mechanical Rate PEEP Pressure Support Vent Sodium 133 L Potassium 4.7 D Chloride 98 Carbon Dioxide 28 Anion Gap 7 L BUN 25 H Creatinine 1.1 H Creat Clearance w eGFR 50.33 Random Glucose 128 H Lactic Acid Calcium 7.9 L Magnesium 2.0 Total Bilirubin 0.4 AST 36 D ALT 36 D Alkaline Phosphatase 156 H Creatine Kinase Troponin I B-Natriuretic Peptide Total Protein 7.6 Albumin 3.2 L Urine Color Urine Appearance Urine pH Ur Specific [place] Urine Protein Urine Glucose (UA) Urine Ketones Urine Blood Urine Nitrite Urine Bilirubin Urine Urobilinogen Stool Occult Blood Opiates Screen Methadone Screen Barbiturate Screen Phencyclidine Screen Ur Amphetamines Screen MDMA (Ecstasy) Screen Benzodiazepines Screen Cocaine Screen U Marijuana (THC) Screen 03/27/17 00:24 Influenza Types A,B Antigen (LE[facility]) - Final Nasopharyngeal Swab - Final 03/26/17 23:15 RBC 3.48 L MCV 78.0 L MCHC 30.4 L RDW 19.9 H MPV 6.9 L Neutrophils % 70.5 Lymphocytes % 13.7 Monocytes % 14.4 H Eosinophils % 1.0 D Basophils % 0.4 - Medications Given in the ED: ED Medications Discontinued Medications Generic Name Dose Route Start Last Admin Trade Name Freq PRN Reason Stop Dose Admin Albuterol/Ipratropium 1 amp 03/26/17 22:30 03/26/17 23:21 Duoneb - NEB 03/26/17 23:16 1 amp Q15M JOSLYN Administration Albuterol/Ipratropium 1 amp 03/27/17 00:15 03/27/17 01:30 Duoneb - NEB 03/27/17 01:01 1 amp Q15M JOSLYN Administration Furosemide 20 mg 03/27/17 00:25 03/27/17 00:55 Lasix Injection - IVPUSH 03/27/17 00:26 Not Given ONCE STA Furosemide 40 mg 03/27/17 00:32 03/27/17 00:54 Lasix Injection - IVPUSH 03/27/17 00:33 40 mg ONCE ONE Administration Magnesium Sulfate 2 gm 03/26/17 23:01 03/26/17 23:21 Magnesium Sulfate IVPB 03/26/17 23:02 2 gm ONCE ONE Administration Methylprednisolone Sodium Succinate 125 mg 03/26/17 22:31 03/26/17 23:21 Solu-Medrol - IVPUSH 03/26/17 22:32 125 mg ONCE ONE Administration <Clemente Flor - Last Filed: 03/27/17 01:57> - LABORATORY CBC & Chemistry Diagram: 03/26/17 23:15 03/26/17 23:15 <Anita Garcia - Last Filed: 03/27/17 02:14> Medical Decision Making - Critical Care Time Total Critical Care Time (minutes): 120 Critical Care Statement: The care of this patient involved high complexity decision making to prevent further life threatening deterioration of the patient 's condition and/or to evaluate & treat vital organ system(s) failure or risk of failure. - Medical Decision Making 03/27/17 01:52 61-year-old female brought in by ambulance for respiratory distress. Patient states that she has been short of breath for the past 2 days and has not had any breathing treatments in the past week because she ran out of her albuterol. Patient is a physically obese 61-year-old female who presented hypoxic, tachypneic with scattered wheezing in lung napoles and decreased breath sounds initially Patient also had lower extremity edema. Past medical history COPD, NIDDM, coronary artery disease, CK D, hepatitis C, bipolar disorder and hypertension Past surgical history hysterectomy PCP is Dr. Josué Leyva Chest x-ray showed congestive heart disease. Impression was that this is a combined picture of COPD with some CHF. Patient was given IV steroids, bronchodilators, Lasix 40 mg IV push. pt placed on bipap negative troponin ekg is NSR @ 71 bpm 03/27/17 02:07 <Anita Garcia - Last Filed: 03/27/17 02:14> *DC/Admit/Observation/Transfer - Attestations Scribe Attestion: 03/27/17 01:40 Documentation prepared by Clemente Flor, acting as product manager medical device for Anita Garcia MD <Clemente Flor - Last Filed: 03/27/17 01:57> - Discharge Dispostion Admit: Yes <Anita Garcia - Last Filed: 03/27/17 02:14> Diagnosis at time of Disposition: COPD exacerbation Diabetes mellitus Qualifiers: Diabetes mellitus type: type 2 Diabetes mellitus complication status: with kidney complications Diabetes mellitus complication detail: with other kidney complication Diabetes mellitus group home insulin use: without rn long term care use Qualified Code(s): E11.29 - Type 2 diabetes mellitus with other diabetic kidney complication Chronic kidney insufficiency Qualifiers: Chronic kidney disease stage: unspecified stage Qualified Code(s): N18.9 - Chronic kidney disease, unspecified Altered mental status Qualifiers: Altered mental status type: unspecified Qualified Code(s): R41.82 - Altered mental status, unspecified CHF (congestive heart failure) Qualifiers: Congestive heart failure type: unspecified congestive heart failure type Congestive heart failure chronicity: acute Qualified Code(s): I50.9 - Heart failure, unspecified
[2017-03-26] MEDS ORDERED: methylPREDNISolone NA SUCC 125 MG/2 ML VIAL IVPUSH ONE (22:31)
[2017-03-26] MEDS: ALBUTEROL SO4 2.5/IPRATROPIUM 0.5 INH SOL 3 ML VIAL.NEB. NEB SCH ×2 (22:43→23:21)
[2017-03-26] MEDS ORDERED: ALBUTEROL SO4 2.5/IPRATROPIUM 0.5 INH SOL 3 ML VIAL.NEB. NEB ONE (22:55)
[2017-03-26] MEDS ORDERED: MAGNESIUM SULF 50% (8.12 MEQ/2 ML-1 GM VIAL) IVPB ONE (23:01)
[2017-03-26] MEDS ORDERED: MAGNESIUM SULF 50% (8.12 MEQ/2 ML-1 GM VIAL) ONE (23:06)
[2017-03-26] MEDS ORDERED: methylPREDNISolone NA SUCC 125 MG/2 ML VIAL ONE (23:07)
[2017-03-26 23:29] LABS: BASO % 0.4 % (0-2.0); HEMATOCRIT 27.1 % (32.4-45.2); HEMOGLOBIN 8.2 GM/dL (10.7-15.3); LYMPH % 13.7 % (8-40); MCH 23.7 pg (25.7-33.7); MCHC 30.4 g/dl (32.0-36.0); MEAN PLT VOLUME 6.9 fl (7.5-11.1); MONO % 14.4 % (3.8-10.2); NEUT % 70.5 % (42.8-82.8); RBC 3.48 M/mm3 (3.60-5.2); RDW 19.9 % (11.6-15.6); WHITE BLOOD COUNT 8.7 K/mm3 (4.0-10.0)
[2017-03-26 23:42] LABS: INR 0.97 (0.82-1.09)
[2017-03-26 23:48] LABS: ARTERIAL BLD GAS O2 SATURATION 94.2 % (90-98.9); ARTERIAL BLOOD GAS PO2 79.6 mmHg (80-100); ARTERIAL BLOOD GAS pH 7.26 (7.35-7.45); CARBOXYHEMOGLOBIN 4.8 gm% (0.5-2.0)
[2017-03-26 23:50] LABS: ARTERIAL BLOOD GAS PCO2 60.7 mmHg (35-45)
[2017-03-26 23:51] LABS: ALLENS TEST POSITIVE
[2017-03-26 23:54] LABS: ALBUMIN 3.2 g/dl (3.4-5.0); ALK PHOS 156 U/L (45-117); ANION GAP 7 (8-16); BILIRUBIN,TOTAL 0.4 mg/dL (0.2-1.0); BLOOD UREA NITROGEN 25 mg/dL (7-18); CALCIUM 7.9 mg/dL (8.5-10.1); CHLORIDE 98 mmol/L (98-107); CO2 28 mmol/L (21-32); CREATININE 1.1 mg/dL (0.55-1.02); GLUCOSE,RANDOM 128 mg/dL (74-106); SGPT/ALT 36 U/L (12-78); SODIUM 133 mmol/L (136-145); TOT PROT 7.6 g/dl (6.4-8.2)
[2017-03-26 23:55] LABS: POTASSIUM 4.7 mmol/L (3.5-5.1); SGOT/AST 36 U/L (15-37)
[2017-03-27] MEDS ORDERED: FUROSEMIDE 40 MG/4 ML INJECTABLE VIAL IVPUSH STA (00:25)
[2017-03-27] MEDS ORDERED: FUROSEMIDE 40 MG/4 ML INJECTABLE VIAL IVPUSH ONE (00:32)
[2017-03-27] MEDS ORDERED: ALBUTEROL SO4 2.5/IPRATROPIUM 0.5 INH SOL 3 ML VIAL.NEB. NEB ONE ×2 (00:32→01:28)
[2017-03-27] MEDS: ALBUTEROL SO4 2.5/IPRATROPIUM 0.5 INH SOL 3 ML VIAL.NEB. NEB SCH ×6 (00:34→18:41)
[2017-03-27] MEDS ORDERED: FUROSEMIDE 40 MG/4 ML INJECTABLE VIAL ONE (00:45)
[2017-03-27 00:52] LABS: ARTERIAL BLOOD GAS PCO2 58.9 mmHg (35-45); ARTERIAL BLOOD GAS pH 7.26 (7.35-7.45)
[2017-03-27 00:54] LABS: ALLENS TEST POSITIVE
[2017-03-27 01:05] LABS: URINE APPEARANCE CLEAR; URINE BILIRUBIN NEGATIVE (NEGATIVE); URINE BLOOD NEGATIVE (NEGATIVE); URINE COLOR LTYELLOW; URINE GLUCOSE (UA) NEGATIVE (NEGATIVE); URINE KETONE NEGATIVE (NEGATIVE); URINE NITRITE NEGATIVE (NEGATIVE); URINE PROTEIN NEGATIVE (NEGATIVE); URINE UROBILINOGEN NEGATIVE mg/dL (0.2-1.0)
[2017-03-27] MEDS ORDERED: LEVOFLOXACIN 500 MG IVPB 500 MG/100 ML BAG IVPB ONE ×2 (01:11→01:20)
[2017-03-27 01:14] LABS: COCAINE, UR NEGATIVE ng/ml (CUTOFF=300); METHADONE, UR NEGATIVE ng/ml (CUTOFF=300); PHENCYCLIDINE,URINE NEGATIVE ng/ml (CUTOFF=25); URINE AMPHETAMINES NEGATIVE ng/ml (CUTOFF=500); URINE BARBITURATES NEGATIVE ng/ml (CUTOFF=200)
[2017-03-27 01:15] LABS: OPIATES, URI POSITIVE ng/ml (CUTOFF=300); URINE BENZODIAZEPINES POSITIVE ng/ml (CUTOFF=200)
--- NOTE | 2017-03-27 02:06 | PN ---
Teaching Attending Note Name of Resident: Laurie Sunshine ATTENDING PHYSICIAN STATEMENT I saw and evaluated the patient. I reviewed the resident's note and discussed the case with the resident. I agree with the resident's findings and plan as documented. SUBJECTIVE: 61 F with pmhx of DM II, CKD Stg. III-IV, HTN, Hep. C, COPD, CAD?, Current smoker,hysterectomy who presented BIBA from home with shortness of breath. Pt. on BIPAP upon interview and was difficult to speak with mask, hx. obtained from ER chart. Shortness of breath starte 2 days ago. OBJECTIVE: Physical: VS: Vital Signs Period Temp Pulse Resp BP Sys/Osei Pulse Ox Last 24 Hr 98.4 F 66-69 18-21 141-152/76-84 84-100 GEN: On BIPAP, able to follow commands HEENT: NCAT, PERRL, Throat without erythema or exudates CARD: RRR S1, S2 RESP: Bilateral Expiratory wheezing, Decreased Breath sounds at bases ABD: BSx4, Obese, non-distended EXT: +2 Pitting edema, bilateral and equal CBCD WBC 8.7 K/mm3 (4.0-10.0) D 03/26/17 23:15 RBC 3.48 M/mm3 (3.60-5.2) L 03/26/17 23:15 Hgb 8.2 GM/dL (10.7-15.3) L D 03/26/17 23:15 Hct 27.1 % (32.4-45.2) L 03/26/17 23:15 MCV 78.0 fl (80-96) L 03/26/17 23:15 MCHC 30.4 g/dl (32.0-36.0) L 03/26/17 23:15 RDW 19.9 % (11.6-15.6) H 03/26/17 23:15 MPV 6.9 fl (7.5-11.1) L 03/26/17 23:15 CMP Sodium 133 mmol/L (136-145) L 03/26/17 23:15 Potassium 4.7 mmol/L (3.5-5.1) D 03/26/17 23:15 Chloride 98 mmol/L (98-107) 03/26/17 23:15 Carbon Dioxide 28 mmol/L (21-32) 03/26/17 23:15 Anion Gap 7 (8-16) L 03/26/17 23:15 BUN 25 mg/dL (7-18) H 03/26/17 23:15 Creatinine 1.1 mg/dL (0.55-1.02) H 03/26/17 23:15 Creat Clearance w eGFR 50.33 (>60) 03/26/17 23:15 Random Glucose 128 mg/dL (74-106) H 03/26/17 23:15 Calcium 7.9 mg/dL (8.5-10.1) L 03/26/17 23:15 Total Bilirubin 0.4 mg/dL (0.2-1.0) 03/26/17 23:15 AST 36 U/L (15-37) D 03/26/17 23:15 ALT 36 U/L (12-78) D 03/26/17 23:15 Alkaline Phosphatase 156 U/L (45-117) H 03/26/17 23:15 Total Protein 7.6 g/dl (6.4-8.2) 03/26/17 23:15 Albumin 3.2 g/dl (3.4-5.0) L 03/26/17 23:15 CARDIAC ENZYMES Creatine Kinase 65 IU/L (26-192) 03/26/17 23:15 Troponin I < 0.02 ng/ml (0.00-0.05) 03/26/17 23:15 EKG: NSR QtC 475 CXR: Bilateral Vasc. Congestion, atelectesis 09/06- ECHO- EF 50 % LV normal. LF fxn nml ASSESSMENT AND PLAN: 61 F with pmhx of DM II, CKD Stg. III-IV, HTN, Hep. C, COPD, CAD?, Current smoker,hysterectomy who presented from home with shortness of breath. Found to be in COPD Exacerbation and CHF Exacerbation. 1.) Acute Hypercarbic Respiratory Failure - ON BIPAP - ABG, IF no improvement-Intubate 1.) Acute Exacerbation of COPD - Duo-Nebs Atc/PRN - Solu-Medrol - 02 >90 - C/W BIPAP - Repeat ABG 2.) Acute Exacerbation of CHF - ECHO - Lasix - NA/Fluid Restrict - Daily Weights - Strict I/O - Trend Trop/EKG - BIPAP 3.) CKD - BAse Cr 1.4-1.5 - Avoid Nephrotoxins 4.) Microcytic Anemia - Fe Studies - B12, Folate - Stool Occ. Neg 5.) Dvt Ppx - Heparin [address] in ICU CC Time: 35 Min Addendum - Pt. Intubated at bedside, Repeat ABG with no improvement, with increased lethargy fatigue - FU repeat ABG/CXR
[2017-03-27] MEDS ORDERED: ALBUTEROL SO4 0.083% IH SOL 2.5 MG/3 ML VIAL.NEB. NEB PRN (02:26)
[2017-03-27 02:39] LABS: PLATELET COUNT 223 K/MM3 (134-434)
[2017-03-27] MEDS ORDERED: methylPREDNISolone NA SUCC 125 MG/2 ML VIAL IVPUSH SCH ×2 (02:45→04:44)
--- NOTE | 2017-03-27 04:22 | CONSULT ---
Consult Consult Specialty:: PULM/CCM Referred by:: Dr. Gonzalo Toro Reason for Consultation:: Resp Fail - History of Present Illness Chief Complaint: Resp Fail History of Present Illness: Ms. Gonzalez is a 61 y/o woman w/ HTN, DM II, CAD, CKD Stg. III-IV, Schizo, bi- polar, COPD, tobacco abuser, (current every day smoker), borbidly obese, probable DIRK/OSH, BIBA from home w/ SOB. A/p report pt began feeling SOB approximately 2 days in the past. In ED pt w/ new pedal edema, ABG = 7.26/59/ 138, CXR w/ pulm edema, & pt presents very lethargic --> U-Tox + for Benzo 's & opiates. I am called to the ED to evaluate pt for ICU admit. 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: Yes: TIA Cardio/Vascular: Yes: HTN Pulmonary: Yes: COPD Renal/: Yes: Renal Inusuff Infectious Disease: Yes: Other (HCV) Psych: Yes: Bipolar Endocrine: Yes: Diabetes Mellitus - Past Surgical History Past Surgical History: Yes: Hysterectomy - Alcohol/Substance Use Hx Alcohol Use: No History of Substance Use: reports: None - Smoking History Smoking history: Current every day smoker Have you smoked in the past 12 months: Yes Aproximately how many cigarettes per day: 4 - Social History Usual Living Arrangement: Alone ADL: Support Services History of Recent Travel: No Home Medications - Allergies Allergies/Adverse Reactions: Allergies Allergy/AdvReac Type Severity Reaction Status Date / Time ibuprofen [From Motrin IB] Allergy Verified 03/20/17 12:51 metformin Allergy Verified 03/20/17 12:51 Penicillins Allergy Verified 03/20/17 12:51 - Home Medications Home Medications: Ambulatory Orders Escitalopram Oxalate [Lexapro -] 20 mg PO DAILY 09/14/15 Olanzapine [Zyprexa -] 10 mg PO HS 09/14/15 Aspirin Coated [Ecotrin -] 81 mg PO DAILY #30 tablet.ec 09/16/15 Amlodipine Besylate [Norvasc -] 10 mg PO DAILY 02/25/16 Carvedilol [Coreg -] 12.5 mg PO BID 02/25/16 Hydralazine HCl [Apresoline -] 50 mg PO TID 02/25/16 Rosuvastatin Calcium [Crestor] 10 mg PO DAILY 08/06/16 Albuterol Sulfate Inhaler - [Ventolin HFA Inhaler -] 2 inh PO Q4H PRN #1 inh Hydrocodone/Acetaminophen [Vicodin Hp 10-300 mg Tablet] 1 each PO Q6H PRN Prednisone [Deltasone -] 40 mg PO DAILY #8 tablet 03/20/17 Family Disease History - Family Disease History Family History: Unable to Obtain (obtunded on Bi-Level) Family Disease History: Heart Disease: Father ( in 40s) Review of Systems Unable to obtain ROS, reason: obtunded on Bi-Level Physical Exam Vital Signs: Vital Signs Temperature 98.4 F 03/26/17 22:36 Pulse Rate 68 03/27/17 02:07 Respiratory Rate 19 03/27/17 02:07 Blood Pressure 145/82 03/27/17 02:07 O2 Sat by Pulse Oximetry (%) 100 03/27/17 02:07 Constitutional: Yes: Well Nourished, No Distress, Calm, Obese Eyes: Yes: WNL, Conjunctiva Clear, EOM Intact HENT: Yes: WNL, Atraumatic, Normocephalic Neck: Yes: WNL, Supple, Trachea Midline Cardiovascular: Yes: WNL, Regular Rate and Rhythm Respiratory: Yes: Diminished, Dullness, On BiPap Gastrointestinal: Yes: WNL, Normal Bowel Sounds, Soft, Abdomen, Obese ...Rectal Exam: Yes: Deferred Renal/: Yes: WNL Breast(s): Yes: WNL Musculoskeletal: Yes: WNL Extremities: Yes: WNL Edema: Yes Edema: LLE: 3+, RLE: 3+ Peripheral Pulses WNL: Yes Integumentary: Yes: WNL Neurological: Yes: Lethargy ...Motor Strength: WNL Psychiatric: Yes: Other (obtunded) Labs: CBC, BMP 03/26/17 23:15 03/26/17 23:15 Troponin, BNP 03/26/17 03/26/17 23:15 23:15 Troponin I < 0.02 B-Natriuretic Peptide 1084.72 H Imaging - Results X-ray: Image Reviewed (CXR 03/27: Pulm edema/ARDS (My Read).) EKG: Image Reviewed (03/27: RSR in the 70's w/o ectopy, normal axis, no ST or T- wave aberrations, QTc = 475ms, no acute processes (My Read).) Problem List - Problems (1) CHF (congestive heart failure) Code(s): I50.9 - HEART FAILURE, UNSPECIFIED (2) COPD exacerbation Code(s): J44.1 - CHRONIC OBSTRUCTIVE PULMONARY DISEASE W (ACUTE) EXACERBATION (3) Chronic kidney insufficiency Code(s): N18.9 - CHRONIC KIDNEY DISEASE, UNSPECIFIED Qualifiers: Chronic kidney disease stage: unspecified stage Qualified Code(s): N18.9 - Chronic kidney disease, unspecified (4) Diabetes mellitus Code(s): E11.9 - TYPE 2 DIABETES MELLITUS WITHOUT COMPLICATIONS (5) Leg edema Code(s): R60.0 - LOCALIZED EDEMA (6) Altered mental status Code(s): R41.82 - ALTERED MENTAL STATUS, UNSPECIFIED Qualifiers: Altered mental status type: unspecified Qualified Code(s): R41.82 - Altered mental status, unspecified Assessment/Plan ASSESS: This is a 61 y/o woman w/ HTN, DM II, CAD, CKD Stg. III-IV, Schizo, bi- polar, COPD, tobacco abuser, (current every day smoker), morbid obesity, probable DIRK/OSH who presents now w/ hypercap resp fail m/l multifactorial: Exacerb/o COPD +/- CHF +/- PNA +/- narcotized. PLAN: -Admit to ICU -Cont Bi-Pap for improved ABG -If ABG does NOT improve or pt does not awake --> intubate -Supp FiO2 for an SpO2 > 92% -Duo-Nebs Atc/PRN -Solu-Medrol -Trend ABG -Cover for CAP -Cont Diuresis GOAL O > I X 1 - 2L -ECHO -Daily Weights -Strict I/O -Monitor UOP -Trend BUN/Cr -Replete e-lytes prn -Trend Trop/EKG -Fe Studies -B12, Folate -BR -PPX Thank you for this interesting Consult DGL, ACNP-BC [facility] ICU PULM/CCM [id number] Critical Care Time/MDM Note Total Critical Care Time: 39 Critical Care Statement: The care of this patient involved high complexity decision making to prevent further life threatening deterioration of the patient 's condition and/or to evaluate & treat vital organ system(s) failure or risk of failure.
[2017-03-27 04:28] VITALS: BMI 48.8
[2017-03-27] MEDS ORDERED: PNEUMOC 13-VAL CONJ-DIP CRM/PF 0.5 ML DISP.SYRIN IM ONE (04:28)
[2017-03-27] MEDS: methylPREDNISolone NA SUCC 40 MG/1 ML VIAL IVPUSH SCH ×4 (04:58→21:47)
[2017-03-27] MEDS: INSULIN SLIDING SCALE (NOVOLOG) 1 VIAL SQ SCH ×6 (05:18→22:20)
[2017-03-27] MEDS: HEPARIN NA (PORCINE) 5,000 UNITS/ML 1ML VIAL SQ SCH ×3 (05:18→21:47)
[2017-03-27 05:49] LABS: ARTERIAL BLD GAS O2 SATURATION 98.3 % (90-98.9); ARTERIAL BLOOD GAS BASE EXCESS 2.1 meq/l (-2-2); ARTERIAL BLOOD GAS pH 7.28 (7.35-7.45)
[2017-03-27 05:50] LABS: ALLENS TEST POSITIVE
[2017-03-27 05:53] LABS: ARTERIAL BLOOD GAS PCO2 64.6 mmHg (35-45)
[2017-03-27 05:55] LABS: BASO % 0.2 % (0-2.0); EOS % 0.1 % (0-4.5); HEMATOCRIT 28.5 % (32.4-45.2); HEMOGLOBIN 8.9 GM/dL (10.7-15.3); LYMPH % 5.4 % (8-40); MCH 24.2 pg (25.7-33.7); MCHC 31.4 g/dl (32.0-36.0); MEAN CELL VOLUME 77.2 fl (80-96); MEAN PLT VOLUME 6.7 fl (7.5-11.1); MONO % 2.8 % (3.8-10.2); NEUT % 91.5 % (42.8-82.8); PLATELET COUNT 242 K/MM3 (134-434); RBC 3.69 M/mm3 (3.60-5.2); RDW 19.7 % (11.6-15.6); WHITE BLOOD COUNT 6.1 K/mm3 (4.0-10.0)
[2017-03-27] MEDS ORDERED: FUROSEMIDE 40 MG/4 ML INJECTABLE VIAL IVPUSH SCH (06:00)
[2017-03-27 06:01] LABS: INR 1.02 (0.82-1.09); PROTHROMBIN TIME (PATIENT) 11.5 SEC (9.98-11.88)
[2017-03-27] MEDS ORDERED: ETOMIDATE 40 MG/20 ML VIAL IVPUSH ONE (06:01)
[2017-03-27] MEDS ORDERED: MIDAZOLAM HCL 5 MG/1 ML Single Dose Vial IVPUSH ONE (06:01)
[2017-03-27] MEDS ORDERED: ETOMIDATE 20 MG/10 ML AMPUL IVPUSH ONE (06:04)
[2017-03-27 06:13] LABS: ALBUMIN 3.1 g/dl (3.4-5.0); ANION GAP 7 (8-16); BILIRUBIN,TOTAL 0.4 mg/dL (0.2-1.0); BLOOD UREA NITROGEN 24 mg/dL (7-18); CHLORIDE 100 mmol/L (98-107); CO2 30 mmol/L (21-32); CREATININE 1.1 mg/dL (0.55-1.02); GLUCOSE,RANDOM 187 mg/dL (74-106); MAGNESIUM 2.1 mg/dL (1.8-2.4); PHOSPHOROUS 3.8 mg/dL (2.5-4.9); POTASSIUM 4.3 mmol/L (3.5-5.1); SGOT/AST 19 U/L (15-37); SGPT/ALT 38 U/L (12-78); SODIUM 137 mmol/L (136-145); TOT PROT 7.3 g/dl (6.4-8.2)
--- NOTE | 2017-03-27 06:22 | HP ---
HISTORY OF PRESENT ILLNESS: History obtained from ED note. Unable to obtain history due to patient somnolence and on BIPAP. She was able to open eyes upon painful stimuli. Patient is a 61 yo, morbidly obese F with a PMHx of HTN, CAD, diabetes, Hep C, CKD stage III-IV, COPD, bipolar/schizophrenia , BIBA, presented because of documented respiratory distress and SOB that started 2 days ago. She has not had any breathing treatments in the past week because she ran out of her albuterol. Upon arrival patient is tachypneic and hypoxic. ER course was notable for: (1) 84% Sat upon arrival (2) CXR: Bilateral Vasc. Congestion, atelectesis (3) 125mg Solu-medrol, 500mg IV levofloxacin Recent Travel: n/a PAST MEDICAL HISTORY: CXR: Bilateral Vasc. Congestion, atelectesis PAST SURGICAL HISTORY: hysterectomy Social History: Smoking: yes, unknown amount Alcohol: n/a Drugs: n/a Family History: Allergies ibuprofen [From Motrin IB] Allergy (Verified 03/20/17 12:51) metformin Allergy (Verified 03/20/17 12:51) Penicillins Allergy (Verified 03/20/17 12:51) HOME MEDICATIONS: Home Medications Medication Instructions Recorded Escitalopram Oxalate [Lexapro -] 20 mg PO DAILY 09/14/15 Olanzapine [Zyprexa -] 10 mg PO HS 09/14/15 Aspirin Coated [Ecotrin -] 81 mg PO DAILY #30 tablet.ec 09/16/15 Amlodipine Besylate [Norvasc -] 10 mg PO DAILY 02/25/16 Carvedilol [Coreg -] 12.5 mg PO BID 02/25/16 Hydralazine HCl [Apresoline -] 50 mg PO TID 02/25/16 Rosuvastatin Calcium [Crestor] 10 mg PO DAILY 08/06/16 Albuterol Sulfate Inhaler - 2 inh PO Q4H PRN #1 inh 11/20/16 [Ventolin HFA Inhaler -] Hydrocodone/Acetaminophen [Vicodin 1 each PO Q6H PRN 12/03/16 Hp 10-300 mg Tablet] Prednisone [Deltasone -] 40 mg PO DAILY #8 tablet 03/20/17 REVIEW OF SYSTEMS CONSTITUTIONAL: unobtainable PHYSICAL EXAMINATION GENERAL: Morbidly obese, Somnolent, reacts to painful stimuli, on BiPap HEAD: Normal with no signs of trauma. EYES: reactive to light, sclera anicteric NOSE, THROAT: nares patent, Moist mucous membranes. LUNGS: b/l scattered expiratory wheezing, decreased air entry b/l HEART: Regular rate and rhythm, normal S1 and S2 without murmur, rub or gallop. ABDOMEN: obese, Soft, nontender, normoactive bowel sounds, UPPER EXTREMITIES: 2+ pulses, No cyanosis. No clubbing. No peripheral edema. LOWER EXTREMITIES: 2+ pulses, 2+ pitting edema b/l EKG: NSR QtC 475 CXR: Bilateral Vasc. Congestion, atelectesis 09/06- ECHO- EF 50 % LV normal. LF fxn nml ASSESSMENT/PLAN: Patient is a 61 yo, morbidly obese F with a PMHx of HTN, CAD, diabetes, Hep C, CKD stage III-IV, COPD, bipolar/schizophrenia , and was found to have acute hypercapnic respiratory failure secondary to acute CHF and COPD exacerbation. #Acute CHF exacerbation -CXR: Bilateral Vasc. Congestion, atelectesis -BNP 1084 -Echo ordered -Lasix 40mg BID -Fluid restriction -Daily weights -I/O -FU Trops in AM -continue BIPAP -FU repeat EKG in AM -Cardiology consulted -FU AM CBC, CMP, Mag, Phos -Obtain Home Med list #Acute COPD exacerbation -PH 7.26, PCO2 60.7 -continue W/ BiPap -Solu-medrol 60mg IV q6 -FU repeat ABG 4am, 7am -Duonebs QIDR -Albuterol Q4 PRN #HTN -held BB due to CHF -will continue monitoring #Diabetes -ISS -BGM #CKD -baseline creatinine 1.4-1.5 -will monitor creatinine and urine output -avoid nephrotoxins #Anemia -stool occult negative -Fe studies -FU Folate and B12 # Hep C -F/u outpatient #FEN -Fluid restriction due to CHF exacerbation -WNL -NPO #PPX -Heparin SQ BID Dispo: ICU placement Visit type - Emergency Visit Emergency Visit: Yes ED Registration Date: 03/27/17 Care time: The patient presented to the Emergency Department on the above date and was hospitalized for further evaluation of their emergent condition. - New Patient This patient is new to me today: Yes Date on this admission: 03/27/17 - Critical Care Critical Care patient: Yes Total Critical Care Time (in minutes): 45 Critical Care Statement: The care of this patient involved high complexity decision making to prevent further life threatening deterioration of the patient 's condition and/or to evaluate & treat vital organ system(s) failure or risk of failure.
[2017-03-27 06:25] LABS: ALK PHOS 148 U/L (45-117)
[2017-03-27] MEDS ORDERED: PROPOFOL 1,000,000 MCG/100 ML VIAL ONE ×2 (06:34→09:34)
[2017-03-27] MEDS: PROPOFOL 1,000,000 MCG/100 ML VIAL IVPB SCH ×4 (06:42→17:30)
--- NOTE | 2017-03-27 06:42 | PROC ---
Intubation - Intubation Reason for Intubation: Respiratory Insufficiency, Respiratory Failure Time of Intubation: 06:00 Intubation Method: orotracheal Blade used: Mac Tube Size (cm): 7.5 Tube position @ lip (cm): 21 Tube position confirmed by: Direct visualization, CO2 detector, Chest x-ray, Breath sounds Breath Sounds after Intubation: equal Post Intubation Xray: Yes Remarks: Distant VC, GRADE II-III View. Requires Experienced ICU Provider. Used [place] Scope. Never paralyzed, no resp arrest, SpO2 NEVER < 97%, no hemodynamic instability to report.
[2017-03-27] MEDS ORDERED: INSULIN SLIDING SCALE (NOVOLOG) 1 VIAL SQ SCH (07:00)
[2017-03-27 07:33] LABS: ARTERIAL BLD GAS O2 SATURATION 96.3 % (90-98.9); ARTERIAL BLOOD GAS PCO2 62.8 mmHg (35-45); ARTERIAL BLOOD GAS PO2 88.6 mmHg (80-100); ARTERIAL BLOOD GAS pH 7.29 (7.35-7.45)
[2017-03-27 07:36] LABS: ALLENS TEST POSITIVE
--- NOTE | 2017-03-27 07:43 | PN ---
Physical Exam: SUBJECTIVE: Patient seen and examined at bedside. Patient is intubated and sedated and is unable to answer any questions for history. Patient was brought to ICU and intubated at 6am. OBJECTIVE: Vital Signs Period Temp Pulse Resp BP Sys/Osei Pulse Ox Last 24 Hr 98.0 F-98.4 F 66-83 18-26 141-170/76-90 84-100 GENERAL: The patient is intubated and sedated. HEAD: Normal with no signs of trauma. NECK: Trachea midline, full range of motion, supple. LUNGS: mechanical breath sounds, course breath sounds, no wheezes, no crackles, no accessory muscle use. HEART: Regular rate and rhythm, S1, S2, mild 1/6 systolic murmur appreciated, rub or gallop. ABDOMEN: obese, soft, nontender, nondistended, normoactive bowel sounds, no guarding, no rebound, no hepatosplenomegaly, no masses. EXTREMITIES: 2+ pulses, warm, well-perfused, no edema. SKIN: Warm, dry, normal turgor, no rashes or lesions noted Laboratory Results - last 24 hr 03/26/17 03/26/17 03/26/17 23:15 23:15 23:15 WBC 8.7 D RBC 3.48 L Hgb 8.2 L D Hct 27.1 L MCV 78.0 L MCH 23.7 L MCHC 30.4 L RDW 19.9 H Plt Count 223 MPV 6.9 L Neutrophils % 70.5 Lymphocytes % 13.7 Monocytes % 14.4 H Eosinophils % 1.0 D Basophils % 0.4 Platelet Comment No clumping noted PT with INR INR Anticoagulation Therapy Puncture Site ABG pH ABG pCO2 at Pt Temp ABG pO2 at Pt Temp ABG HCO3 ABG O2 Sat (Measured) ABG O2 Content ABG Base Excess Good Test Carboxyhemoglobin Methemoglobin O2 Delivery Device Oxygen Flow Rate Vent Mode Vent Rate Mechanical Rate PEEP Pressure Support Vent Sodium 133 L Potassium 4.7 D Chloride 98 Carbon Dioxide 28 Anion Gap 7 L BUN 25 H Creatinine 1.1 H Creat Clearance w eGFR 50.33 POC Glucometer Random Glucose 128 H Lactic Acid 1.1 Calcium 7.9 L Phosphorus Magnesium 2.0 Total Bilirubin 0.4 AST 36 D ALT 36 D Alkaline Phosphatase 156 H Creatine Kinase Troponin I B-Natriuretic Peptide Total Protein 7.6 Albumin 3.2 L Vitamin B12 Serum Folate Urine Color Urine Appearance Urine pH Ur Specific Trinity Urine Protein Urine Glucose (UA) Urine Ketones Urine Blood Urine Nitrite Urine Bilirubin Urine Urobilinogen Stool Occult Blood Opiates Screen Methadone Screen Barbiturate Screen Phencyclidine Screen Ur Amphetamines Screen MDMA (Ecstasy) Screen Benzodiazepines Screen Cocaine Screen U Marijuana (THC) Screen 03/26/17 03/26/17 03/26/17 23:15 23:15 23:15 WBC RBC Hgb Hct MCV MCH MCHC RDW Plt Count MPV Neutrophils % Lymphocytes % Monocytes % Eosinophils % Basophils % Platelet Comment PT with INR 11.00 INR 0.97 Anticoagulation Therapy Puncture Site ABG pH ABG pCO2 at Pt Temp ABG pO2 at Pt Temp ABG HCO3 ABG O2 Sat (Measured) ABG O2 Content ABG Base Excess Good Test Carboxyhemoglobin Methemoglobin O2 Delivery Device Oxygen Flow Rate Vent Mode Vent Rate Mechanical Rate PEEP Pressure Support Vent Sodium Potassium Chloride Carbon Dioxide Anion Gap BUN Creatinine Creat Clearance w eGFR POC Glucometer Random Glucose Lactic Acid Calcium Phosphorus Magnesium Total Bilirubin AST ALT Alkaline Phosphatase Creatine Kinase 65 Troponin I < 0.02 B-Natriuretic Peptide 1084.72 H Total Protein Albumin Vitamin B12 Serum Folate Urine Color Urine Appearance Urine pH Ur Specific Trinity Urine Protein Urine Glucose (UA) Urine Ketones Urine Blood Urine Nitrite Urine Bilirubin Urine Urobilinogen Stool Occult Blood Opiates Screen Methadone Screen Barbiturate Screen Phencyclidine Screen Ur Amphetamines Screen MDMA (Ecstasy) Screen Benzodiazepines Screen Cocaine Screen U Marijuana (THC) Screen 03/26/17 03/27/17 03/27/17 23:35 00:19 00:19 WBC RBC Hgb Hct MCV MCH MCHC RDW Plt Count MPV Neutrophils % Lymphocytes % Monocytes % Eosinophils % Basophils % Platelet Comment PT with INR INR Anticoagulation Therapy Y Puncture Site Right radial ABG pH 7.26 L ABG pCO2 at Pt Temp 60.7 H* ABG pO2 at Pt Temp 79.6 L ABG HCO3 26.0 ABG O2 Sat (Measured) 94.2 ABG O2 Content 11.0 L ABG Base Excess -1.0 Good Test Positive Carboxyhemoglobin 4.8 H Methemoglobin 0.6 O2 Delivery Device Nasal canula Oxygen Flow Rate 8 l Vent Mode Y Vent Rate Y Mechanical Rate Y PEEP 0.0 Pressure Support Vent Y Sodium Potassium Chloride Carbon Dioxide Anion Gap BUN Creatinine Creat Clearance w eGFR POC Glucometer Random Glucose Lactic Acid Calcium Phosphorus Magnesium Total Bilirubin AST ALT Alkaline Phosphatase Creatine Kinase Troponin I B-Natriuretic Peptide Total Protein Albumin Vitamin B12 Serum Folate Urine Color Ltyellow Urine Appearance Clear Urine pH 5.0 Ur Specific Trinity 1.009 Urine Protein Negative Urine Glucose (UA) Negative Urine Ketones Negative Urine Blood Negative Urine Nitrite Negative Urine Bilirubin Negative Urine Urobilinogen Negative Stool Occult Blood Opiates Screen Positive Methadone Screen Negative Barbiturate Screen Negative Phencyclidine Screen Negative Ur Amphetamines Screen Negative MDMA (Ecstasy) Screen Negative Benzodiazepines Screen Positive Cocaine Screen Negative U Marijuana (THC) Screen Negative 03/27/17 03/27/17 03/27/17 00:40 00:40 05:00 WBC 6.1 RBC 3.69 Hgb 8.9 L Hct 28.5 L MCV 77.2 L MCH 24.2 L MCHC 31.4 L RDW 19.7 H Plt Count 242 MPV 6.7 L Neutrophils % 91.5 H D Lymphocytes % 5.4 L D Monocytes % 2.8 L D Eosinophils % 0.1 D Basophils % 0.2 Platelet Comment PT with INR INR Anticoagulation Therapy Y Puncture Site Right radial ABG pH 7.26 L ABG pCO2 at Pt Temp 58.9 H ABG pO2 at Pt Temp 138.0 H D ABG HCO3 25.8 ABG O2 Sat (Measured) 99.0 H ABG O2 Content 11.5 L ABG Base Excess -1.0 Good Test Positive Carboxyhemoglobin Methemoglobin O2 Delivery Device Y Oxygen Flow Rate 70% Vent Mode S/t Vent Rate 16 Mechanical Rate Bipap PEEP 5.0 Pressure Support Vent 16 Sodium Potassium Chloride Carbon Dioxide Anion Gap BUN Creatinine Creat Clearance w eGFR POC Glucometer Random Glucose Lactic Acid Calcium Phosphorus Magnesium Total Bilirubin AST ALT Alkaline Phosphatase Creatine Kinase Troponin I B-Natriuretic Peptide Total Protein Albumin Vitamin B12 Serum Folate Urine Color Urine Appearance Urine pH Ur Specific Trinity Urine Protein Urine Glucose (UA) Urine Ketones Urine Blood Urine Nitrite Urine Bilirubin Urine Urobilinogen Stool Occult Blood Negative Opiates Screen Methadone Screen Barbiturate Screen Phencyclidine Screen Ur Amphetamines Screen MDMA (Ecstasy) Screen Benzodiazepines Screen Cocaine Screen U Marijuana (THC) Screen 03/27/17 03/27/17 03/27/17 05:00 05:00 05:00 WBC RBC Hgb Hct MCV MCH MCHC RDW Plt Count MPV Neutrophils % Lymphocytes % Monocytes % Eosinophils % Basophils % Platelet Comment PT with INR 11.50 INR 1.02 Anticoagulation Therapy Puncture Site ABG pH ABG pCO2 at Pt Temp ABG pO2 at Pt Temp ABG HCO3 ABG O2 Sat (Measured) ABG O2 Content ABG Base Excess Good Test Carboxyhemoglobin Methemoglobin O2 Delivery Device Oxygen Flow Rate Vent Mode Vent Rate Mechanical Rate PEEP Pressure Support Vent Sodium 137 Potassium 4.3 Chloride 100 Carbon Dioxide 30 Anion Gap 7 L BUN 24 H Creatinine 1.1 H Creat Clearance w eGFR 50.33 POC Glucometer Random Glucose 187 H D Lactic Acid Calcium 8.0 L Phosphorus 3.8 D Magnesium 2.1 Total Bilirubin 0.4 AST 19 D ALT 38 Alkaline Phosphatase 148 H Creatine Kinase 49 Troponin I < 0.02 B-Natriuretic Peptide Total Protein 7.3 Albumin 3.1 L Vitamin B12 Serum Folate 7 Urine Color Urine Appearance Urine pH Ur Specific Trinity Urine Protein Urine Glucose (UA) Urine Ketones Urine Blood Urine Nitrite Urine Bilirubin Urine Urobilinogen Stool Occult Blood Opiates Screen Methadone Screen Barbiturate Screen Phencyclidine Screen Ur Amphetamines Screen MDMA (Ecstasy) Screen Benzodiazepines Screen Cocaine Screen U Marijuana (THC) Screen 03/27/17 03/27/17 03/27/17 05:00 05:10 05:45 WBC RBC Hgb Hct MCV MCH MCHC RDW Plt Count MPV Neutrophils % Lymphocytes % Monocytes % Eosinophils % Basophils % Platelet Comment PT with INR INR Anticoagulation Therapy Y Puncture Site Right radial ABG pH 7.28 L ABG pCO2 at Pt Temp 64.6 H* ABG pO2 at Pt Temp 116.0 H D ABG HCO3 29.2 H ABG O2 Sat (Measured) 98.3 ABG O2 Content 12.5 L ABG Base Excess 2.1 H Good Test Positive Carboxyhemoglobin Methemoglobin O2 Delivery Device Y Oxygen Flow Rate Yes Vent Mode Y Vent Rate 16 Mechanical Rate Y PEEP 5.0 Pressure Support Vent Y Sodium Potassium Chloride Carbon Dioxide Anion Gap BUN Creatinine Creat Clearance w eGFR POC Glucometer 213.45341 Random Glucose Lactic Acid Calcium Phosphorus Magnesium Total Bilirubin AST ALT Alkaline Phosphatase Creatine Kinase Troponin I B-Natriuretic Peptide Total Protein Albumin Vitamin B12 482 Serum Folate Urine Color Urine Appearance Urine pH Ur Specific Trinity Urine Protein Urine Glucose (UA) Urine Ketones Urine Blood Urine Nitrite Urine Bilirubin Urine Urobilinogen Stool Occult Blood Opiates Screen Methadone Screen Barbiturate Screen Phencyclidine Screen Ur Amphetamines Screen MDMA (Ecstasy) Screen Benzodiazepines Screen Cocaine Screen U Marijuana (THC) Screen Active Medications Home Medication List Medication Instructions Recorded Confirmed Type Escitalopram Oxalate [Lexapro -] 20 mg PO DAILY 09/14/15 03/20/17 History Olanzapine [Zyprexa -] 10 mg PO HS 09/14/15 03/20/17 History Amlodipine Besylate [Norvasc -] 10 mg PO DAILY 02/25/16 03/20/17 History Carvedilol [Coreg -] 12.5 mg PO BID 02/25/16 03/20/17 History Hydralazine HCl [Apresoline -] 50 mg PO TID 02/25/16 03/20/17 History Rosuvastatin Calcium [Crestor] 10 mg PO DAILY 08/06/16 03/20/17 History Hydrocodone/Acetaminophen [Vicodin 1 each PO Q6H PRN 12/03/16 03/20/17 History Hp 10-300 mg Tablet] Active Medications Generic Name Dose Route Start Last Admin Trade Name Freq PRN Reason Stop Dose Admin Albuterol Sulfate 1 amp 03/27/17 02:26 Ventolin 0.083% Nebulizer Soln - NEB Q4H PRN SHORT OF BREATH/WHEEZING Albuterol/Ipratropium 1 amp 03/27/17 06:00 Duoneb - NEB QIDR [facility] Amlodipine Besylate 10 mg 03/27/17 10:00 Norvasc - PO DAILY [facility] Aspirin 81 mg 03/27/17 10:00 Ecotrin - PO DAILY [facility] Chlorhexidine Gluconate 1 applic 03/27/17 22:00 Hibiclens For Decolonization - TP HS [facility] Furosemide 40 mg 03/27/17 06:00 03/27/17 05:18 Lasix Injection - IVPUSH 40 mg BIDLASIX JOSLYN Administration Heparin Sodium (Porcine) 5,000 unit 03/27/17 06:00 03/27/17 05:18 Heparin - SQ 5,000 unit TID JOSLYN Administration Hydralazine HCl 50 mg 03/27/17 14:00 Apresoline - PO TID JOSLYN Propofol 1,000,000 mcg in 100 mls @ 3.518 mls/hr 03/27/17 06:45 03/27/17 06: 42 Diprivan - IVPB 5 mcg/kg/min TITR JOSLYN 3.518 mls/hr Protocol Administration 5 MCG/KG/MIN Influenza Virus Vaccine Quadrival 60 mcg 03/27/17 04:28 Flulaval Quad [id number] IM 03/27/17 04:29 .ONCE ONE Insulin Aspart 1 vial 03/27/17 06:00 03/27/17 06:44 Novolog Vial Sliding Scale - SQ 4 units Q4HPO [facility] Administration Protocol Methylprednisolone Sodium Succinate 40 mg 03/27/17 10:00 03/27/17 04:58 Solu-Medrol - IVPUSH Not Given BID JOSLYN Mupirocin 1 applic 03/27/17 10:00 Bactroban Ointment (For Decolonization) - NS 04/01/17 09:59 BID JOSLYN Pantoprazole Sodium 40 mg 03/27/17 10:00 Protonix Iv IVPUSH DAILY [facility] Pneumococcal Polyvalent Vaccine 0.5 ml 03/27/17 10:00 Pneumovax - IM 03/27/17 10:01 .ONCE ONE Rosuvastatin Calcium 10 mg 03/27/17 10:00 Crestor - PO DAILY [facility] ASSESSMENT/PLAN: 61 year old female with a past medical history of HTN, CAD, diabetes, Hep C, CKD stage III-IV, COPD, bipolar/schizophrenia admitted to the ICU for acute hypercapnic respiratory failure secondary to CHF and COPD exacerbation due to medication non-compliance (patient had not taken albuterol in several days). Patient was found to be in hypercapnic respiratory failure and put on Bipap overnight. It was not improving her respiratory status and patient was intubated in the ICU and mechanical ventilation was begun. #Hypercapnic Respiratory Failure 2/2 COPD Exacerbation - patient being treated in ICU -patient intubated, mechanically ventilated, and sedated on propofol at 5mcg/kg/ min at a rate of 2.518ml/hr, insert OGT -ABG at 8 AM showed very mildly improved respiratory acidosis (7.29/62.8/88.6/ 28.9), repeat in Am -CXR today showed fullness of karina with congestive changes -chest x-ray in AM -continue methylprednisolone 40mg IV BID -cannot fully r/o pneumonia -vent management as per ICU team #CHF Exacerbation: patient appears fluid overloaded, 1+ pitting edema -echocardiogram - moderate aortic sclerosis -lasix 40mg IV BID -Fluid restriction -daily weights -strict I's and O's -Trops negative -EKG normal sinus rhythm #Hypertension: pt is hypertensive today -restart home hydralazine 50mg TID -restart home amlodipine 10mg QD #CKD stage III/IV: creatinine stable at 1.1 -baseline on previous admissions was >1.1 #Anemia: Hgb improving -f/u Fe studies -B12 and folate were within normal limits #Diabetes Mellitus: -Insulin sliding scale #Hepatitis C: -not an active concern #FEN -No standing fluids -electrolytes within normal limits -NPO #Prophylaxis -Heparin 5000 subq TID #Disposition -Continue management in ICU -Full code Visit type - Emergency Visit Emergency Visit: No - New Patient This patient is new to me today: Yes Date on this admission: 03/27/17 - Critical Care Critical Care patient: Yes Total Critical Care Time (in minutes): 30 Critical Care Statement: The care of this patient involved high complexity decision making to prevent further life threatening deterioration of the patient 's condition and/or to evaluate & treat vital organ system(s) failure or risk of failure.
[2017-03-27] MEDS ORDERED: PT OWN MED DRAWER 7, Y5N ONE (08:45)
[2017-03-27] MEDS ORDERED: FLU VACCINE QUAD 60 MCG/0.5 ML (MDV 17-18) IM ONE (10:00)
[2017-03-27] MEDS ORDERED: ASPIRIN COATED 81 MG TABLET.EC PO SCH (10:00)
[2017-03-27] MEDS ORDERED: PNEUMOCOCCAL 23 VACCINE 0.5 ML VIAL IM ONE (10:00)
[2017-03-27] MEDS: PANTOPRAZOLE SODIUM 40 MG VIAL IVPUSH SCH (11:00)
[2017-03-27] MEDS: MUPIROCIN 2% TOPICAL OINTMENT FOR DECOLONIZATION NS SCH ×2 (11:00→21:42)
--- NOTE | 2017-03-27 12:20 | PN ---
Teaching Attending Note Name of Resident: Raghu Gonzalez ATTENDING PHYSICIAN STATEMENT I saw and evaluated the patient. I reviewed the resident's note and discussed the case with the resident. I agree with the resident's findings and plan as documented. SUBJECTIVE:intubated/sedated OBJECTIVE: Last Vital Signs Temp Pulse Resp BP Pulse Ox 98.0 F 69 32 H 134/75 99 03/27/17 06:00 03/27/17 09:15 03/27/17 11:54 03/27/17 08:00 03/27/17 10:40 Intake & Output 03/24/17 03/25/17 03/26/17 03/27/17 23:59 23:59 23:59 23:59 Output Total 1900 Balance -1900 Weight 218 lb 258 lb 9 oz General intubated/sedated/ tachypnic CV S1 S2 RRR +murmur Lungs coarse breath sounds diffusely, decreased bases Abdomen soft NT/ND Extremiites 1+ pitting edema B/L ASSESSMENT AND PLAN: 61yo F with PMH DM, CKD, HTN, HCV, COPD, CAD and some psychaitric disorder presented to the ER with progressive sob and found to be in hypercapnic hypoxic respiratory failure 1. Acute hypoxic hypercapnic respiratory failure-likely due to acute on chronic COPD vs volume overload from ne onset CHF. failed bipap trial and was intubated due to poor mental status and worsening hypercapnea. minimal improvement after intubated. would recommend A-line placement for frequent ABG. obtain echo to check EF, normal echo in 2016. started on steroids. would increase steroid dosing, cont IV lasix. mild improvement since admission. no definite infiltrate seen on CXR. afebrile and no leukocytosis. would hold abx at this time. cardiac enzymes neg x2. monitor CO2. full vent support. increase sedation , start pain control to improve tachypnea. vent management per ICU team. cardio consulted. PLace NGT to start feeds and medication administration 2.Microcytic anemia- Hgb stable. no signs of bleeding. iron panel pending. no indication for txn 3. CKD- stable 4. HTN- stable. cont norvasc, hydralaxine 5. Psychiatric disorder- on zyprexa. will need to confirm 6. HVC 7. DVT/GI ppx- heparin sq, ppi 8. MICU monitoring. full code 9. will need to confirm home medications Critical Care Statement: The care of this patient involved high complexity decision making to prevent further life threatening deterioration of the patient 's condition and/or to evaluate & treat vital organ system(s) failure or risk of failure. 40 mins cc
[2017-03-27 12:44] LABS: URINE LEUK ESTERASE Negative (NEGATIVE)
--- NOTE | 2017-03-27 12:49 | EKG ---
Test Reason : Blood Pressure : / mmHG Vent. Rate : 071 BPM Atrial Rate : 071 BPM P-R Int : 184 ms QRS Dur : 090 ms QT Int : 438 ms P-R-T Axes : 063 014 036 degrees QTc Int : 475 ms NORMAL SINUS RHYTHM NORMAL ECG WHEN COMPARED WITH ECG OF 05-DEC-2016 01:39, NO SIGNIFICANT CHANGE WAS FOUND Confirmed by DELFINA SHELBY MD ([id number]) on 03/27/2017 12:49:18 PM Referred By: Confirmed By:DELFINA SHELBY MD
--- NOTE | 2017-03-27 13:07 | PN ---
Physical Exam: SUBJECTIVE: The patient is a 61F with a PMH of T2DM, HTn, CKD stage 3-4, CAD, schizophrenia, bipolar disorder, COPD, and tobacco use who presented to the ED with complaints of SOB which developed over 2 days. She was found to have worsening ABG's and lethargy and was intubated in the ICU at 0600 this morning ( 03/27). The patient remains intubated and sedated. Unable to obtain ROS. OBJECTIVE: Vital Signs Period Temp Pulse Resp BP Sys/Osei Pulse Ox Last 24 Hr 97.8 F-98.4 F 60-83 18-32 134-170/75-91 84-100 GENERAL: The patient is intubated and sedated, in no acute distress. HEAD: Normal with no signs of trauma. EYES: PERRL, extraocular movements intact, sclera anicteric, conjunctiva clear. No ptosis. ENT: Ears normal, nares patent, oropharynx clear without exudates, moist mucous membranes. NECK: Trachea midline, full range of motion, supple. LUNGS: Breath sounds equal, clear to auscultation bilaterally, no wheezes, no crackles, no accessory muscle use. HEART: Regular rate and rhythm, S1, S2 without murmur, rub or gallop. ABDOMEN: Soft, nontender, nondistended, normoactive bowel sounds, no guarding, no rebound, no hepatosplenomegaly, no masses. EXTREMITIES: 2+ pulses, warm, well-perfused, no edema. NEUROLOGICAL: Cranial nerves II through XII grossly intact. Normal speech, gait not observed. PSYCH: Normal mood, normal affect. SKIN: Warm, dry, normal turgor, no rashes or lesions noted Laboratory Results - last 24 hr 03/26/17 03/26/17 03/26/17 23:15 23:15 23:15 WBC 8.7 D RBC 3.48 L Hgb 8.2 L D Hct 27.1 L MCV 78.0 L MCH 23.7 L MCHC 30.4 L RDW 19.9 H Plt Count 223 MPV 6.9 L Neutrophils % 70.5 Lymphocytes % 13.7 Monocytes % 14.4 H Eosinophils % 1.0 D Basophils % 0.4 Platelet Comment No clumping noted PT with INR INR Anticoagulation Therapy Puncture Site ABG pH ABG pCO2 at Pt Temp ABG pO2 at Pt Temp ABG HCO3 ABG O2 Sat (Measured) ABG O2 Content ABG Base Excess Good Test Carboxyhemoglobin Methemoglobin O2 Delivery Device Oxygen Flow Rate Vent Mode Vent Rate Mechanical Rate PEEP Pressure Support Vent Sodium 133 L Potassium 4.7 D Chloride 98 Carbon Dioxide 28 Anion Gap 7 L BUN 25 H Creatinine 1.1 H Creat Clearance w eGFR 50.33 POC Glucometer Random Glucose 128 H Lactic Acid 1.1 Calcium 7.9 L Phosphorus Magnesium 2.0 Total Bilirubin 0.4 AST 36 D ALT 36 D Alkaline Phosphatase 156 H Creatine Kinase Troponin I B-Natriuretic Peptide Total Protein 7.6 Albumin 3.2 L Vitamin B12 Serum Folate Urine Color Urine Appearance Urine pH Ur Specific [place] Urine Protein Urine Glucose (UA) Urine Ketones Urine Blood Urine Nitrite Urine Bilirubin Urine Urobilinogen Ur Leukocyte Esterase Stool Occult Blood Opiates Screen Methadone Screen Barbiturate Screen Phencyclidine Screen Ur Amphetamines Screen MDMA (Ecstasy) Screen Benzodiazepines Screen Cocaine Screen U Marijuana (THC) Screen Blood Type Antibody Screen 03/26/17 03/26/17 03/26/17 23:15 23:15 23:15 WBC RBC Hgb Hct MCV MCH MCHC RDW Plt Count MPV Neutrophils % Lymphocytes % Monocytes % Eosinophils % Basophils % Platelet Comment PT with INR 11.00 INR 0.97 Anticoagulation Therapy Puncture Site ABG pH ABG pCO2 at Pt Temp ABG pO2 at Pt Temp ABG HCO3 ABG O2 Sat (Measured) ABG O2 Content ABG Base Excess Good Test Carboxyhemoglobin Methemoglobin O2 Delivery Device Oxygen Flow Rate Vent Mode Vent Rate Mechanical Rate PEEP Pressure Support Vent Sodium Potassium Chloride Carbon Dioxide Anion Gap BUN Creatinine Creat Clearance w eGFR POC Glucometer Random Glucose Lactic Acid Calcium Phosphorus Magnesium Total Bilirubin AST ALT Alkaline Phosphatase Creatine Kinase 65 Troponin I < 0.02 B-Natriuretic Peptide 1084.72 H Total Protein Albumin Vitamin B12 Serum Folate Urine Color Urine Appearance Urine pH Ur Specific [place] Urine Protein Urine Glucose (UA) Urine Ketones Urine Blood Urine Nitrite Urine Bilirubin Urine Urobilinogen Ur Leukocyte Esterase Stool Occult Blood Opiates Screen Methadone Screen Barbiturate Screen Phencyclidine Screen Ur Amphetamines Screen MDMA (Ecstasy) Screen Benzodiazepines Screen Cocaine Screen U Marijuana (THC) Screen Blood Type Antibody Screen 03/26/17 03/27/17 03/27/17 23:35 00:19 00:19 WBC RBC Hgb Hct MCV MCH MCHC RDW Plt Count MPV Neutrophils % Lymphocytes % Monocytes % Eosinophils % Basophils % Platelet Comment PT with INR INR Anticoagulation Therapy Y Puncture Site Right radial ABG pH 7.26 L ABG pCO2 at Pt Temp 60.7 H* ABG pO2 at Pt Temp 79.6 L ABG HCO3 26.0 ABG O2 Sat (Measured) 94.2 ABG O2 Content 11.0 L ABG Base Excess -1.0 Good Test Positive Carboxyhemoglobin 4.8 H Methemoglobin 0.6 O2 Delivery Device Nasal canula Oxygen Flow Rate 8 l Vent Mode Y Vent Rate Y Mechanical Rate Y PEEP 0.0 Pressure Support Vent Y Sodium Potassium Chloride Carbon Dioxide Anion Gap BUN Creatinine Creat Clearance w eGFR POC Glucometer Random Glucose Lactic Acid Calcium Phosphorus Magnesium Total Bilirubin AST ALT Alkaline Phosphatase Creatine Kinase Troponin I B-Natriuretic Peptide Total Protein Albumin Vitamin B12 Serum Folate Urine Color Ltyellow Urine Appearance Clear Urine pH 5.0 Ur Specific [place] 1.009 Urine Protein Negative Urine Glucose (UA) Negative Urine Ketones Negative Urine Blood Negative Urine Nitrite Negative Urine Bilirubin Negative Urine Urobilinogen Negative Ur Leukocyte Esterase Negative Stool Occult Blood Opiates Screen Positive Methadone Screen Negative Barbiturate Screen Negative Phencyclidine Screen Negative Ur Amphetamines Screen Negative MDMA (Ecstasy) Screen Negative Benzodiazepines Screen Positive Cocaine Screen Negative U Marijuana (THC) Screen Negative Blood Type Antibody Screen 03/27/17 03/27/17 03/27/17 00:40 00:40 05:00 WBC 6.1 RBC 3.69 Hgb 8.9 L Hct 28.5 L MCV 77.2 L MCH 24.2 L MCHC 31.4 L RDW 19.7 H Plt Count 242 MPV 6.7 L Neutrophils % 91.5 H D Lymphocytes % 5.4 L D Monocytes % 2.8 L D Eosinophils % 0.1 D Basophils % 0.2 Platelet Comment PT with INR INR Anticoagulation Therapy Y Puncture Site Right radial ABG pH 7.26 L ABG pCO2 at Pt Temp 58.9 H ABG pO2 at Pt Temp 138.0 H D ABG HCO3 25.8 ABG O2 Sat (Measured) 99.0 H ABG O2 Content 11.5 L ABG Base Excess -1.0 Good Test Positive Carboxyhemoglobin Methemoglobin O2 Delivery Device Y Oxygen Flow Rate 70% Vent Mode S/t Vent Rate 16 Mechanical Rate Bipap PEEP 5.0 Pressure Support Vent 16 Sodium Potassium Chloride Carbon Dioxide Anion Gap BUN Creatinine Creat Clearance w eGFR POC Glucometer Random Glucose Lactic Acid Calcium Phosphorus Magnesium Total Bilirubin AST ALT Alkaline Phosphatase Creatine Kinase Troponin I B-Natriuretic Peptide Total Protein Albumin Vitamin B12 Serum Folate Urine Color Urine Appearance Urine pH Ur Specific [place] Urine Protein Urine Glucose (UA) Urine Ketones Urine Blood Urine Nitrite Urine Bilirubin Urine Urobilinogen Ur Leukocyte Esterase Stool Occult Blood Negative Opiates Screen Methadone Screen Barbiturate Screen Phencyclidine Screen Ur Amphetamines Screen MDMA (Ecstasy) Screen Benzodiazepines Screen Cocaine Screen U Marijuana (THC) Screen Blood Type Antibody Screen 03/27/17 03/27/17 03/27/17 05:00 05:00 05:00 WBC RBC Hgb Hct MCV MCH MCHC RDW Plt Count MPV Neutrophils % Lymphocytes % Monocytes % Eosinophils % Basophils % Platelet Comment PT with INR 11.50 INR 1.02 Anticoagulation Therapy Puncture Site ABG pH ABG pCO2 at Pt Temp ABG pO2 at Pt Temp ABG HCO3 ABG O2 Sat (Measured) ABG O2 Content ABG Base Excess Good Test Carboxyhemoglobin Methemoglobin O2 Delivery Device Oxygen Flow Rate Vent Mode Vent Rate Mechanical Rate PEEP Pressure Support Vent Sodium 137 Potassium 4.3 Chloride 100 Carbon Dioxide 30 Anion Gap 7 L BUN 24 H Creatinine 1.1 H Creat Clearance w eGFR 50.33 POC Glucometer Random Glucose 187 H D Lactic Acid Calcium 8.0 L Phosphorus 3.8 D Magnesium 2.1 Total Bilirubin 0.4 AST 19 D ALT 38 Alkaline Phosphatase 148 H Creatine Kinase Troponin I B-Natriuretic Peptide Total Protein 7.3 Albumin 3.1 L Vitamin B12 Serum Folate 7 Urine Color Urine Appearance Urine pH Ur Specific [place] Urine Protein Urine Glucose (UA) Urine Ketones Urine Blood Urine Nitrite Urine Bilirubin Urine Urobilinogen Ur Leukocyte Esterase Stool Occult Blood Opiates Screen Methadone Screen Barbiturate Screen Phencyclidine Screen Ur Amphetamines Screen MDMA (Ecstasy) Screen Benzodiazepines Screen Cocaine Screen U Marijuana (THC) Screen Blood Type O POSITIVE Antibody Screen Negative 03/27/17 03/27/17 03/27/17 05:00 05:00 05:10 WBC RBC Hgb Hct MCV MCH MCHC RDW Plt Count MPV Neutrophils % Lymphocytes % Monocytes % Eosinophils % Basophils % Platelet Comment PT with INR INR Anticoagulation Therapy Puncture Site ABG pH ABG pCO2 at Pt Temp ABG pO2 at Pt Temp ABG HCO3 ABG O2 Sat (Measured) ABG O2 Content ABG Base Excess Good Test Carboxyhemoglobin Methemoglobin O2 Delivery Device Oxygen Flow Rate Vent Mode Vent Rate Mechanical Rate PEEP Pressure Support Vent Sodium Potassium Chloride Carbon Dioxide Anion Gap BUN Creatinine Creat Clearance w eGFR POC Glucometer 213.89720 Random Glucose Lactic Acid Calcium Phosphorus Magnesium Total Bilirubin AST ALT Alkaline Phosphatase Creatine Kinase 49 Troponin I < 0.02 B-Natriuretic Peptide Total Protein Albumin Vitamin B12 482 Serum Folate Urine Color Urine Appearance Urine pH Ur Specific [place] Urine Protein Urine Glucose (UA) Urine Ketones Urine Blood Urine Nitrite Urine Bilirubin Urine Urobilinogen Ur Leukocyte Esterase Stool Occult Blood Opiates Screen Methadone Screen Barbiturate Screen Phencyclidine Screen Ur Amphetamines Screen MDMA (Ecstasy) Screen Benzodiazepines Screen Cocaine Screen U Marijuana (THC) Screen Blood Type Antibody Screen 03/27/17 03/27/17 05:45 08:00 WBC RBC Hgb Hct MCV MCH MCHC RDW Plt Count MPV Neutrophils % Lymphocytes % Monocytes % Eosinophils % Basophils % Platelet Comment PT with INR INR Anticoagulation Therapy Y Puncture Site Right radial Right radial ABG pH 7.28 L 7.29 L ABG pCO2 at Pt Temp 64.6 H* 62.8 H* ABG pO2 at Pt Temp 116.0 H D 88.6 D ABG HCO3 29.2 H 28.9 H ABG O2 Sat (Measured) 98.3 96.3 ABG O2 Content 12.5 L 11.7 L ABG Base Excess 2.1 H 2.0 Good Test Positive Positive Carboxyhemoglobin Methemoglobin O2 Delivery Device Y Oxygen Flow Rate Yes Y Vent Mode Y Vent Rate 16 Mechanical Rate Y PEEP 5.0 Pressure Support Vent Y Sodium Potassium Chloride Carbon Dioxide Anion Gap BUN Creatinine Creat Clearance w eGFR POC Glucometer Random Glucose Lactic Acid Calcium Phosphorus Magnesium Total Bilirubin AST ALT Alkaline Phosphatase Creatine Kinase Troponin I B-Natriuretic Peptide Total Protein Albumin Vitamin B12 Serum Folate Urine Color Urine Appearance Urine pH Ur Specific [place] Urine Protein Urine Glucose (UA) Urine Ketones Urine Blood Urine Nitrite Urine Bilirubin Urine Urobilinogen Ur Leukocyte Esterase Stool Occult Blood Opiates Screen Methadone Screen Barbiturate Screen Phencyclidine Screen Ur Amphetamines Screen MDMA (Ecstasy) Screen Benzodiazepines Screen Cocaine Screen U Marijuana (THC) Screen Blood Type Antibody Screen Active Medications Generic Name Dose Route Start Last Admin Trade Name Freq PRN Reason Stop Dose Admin Albuterol Sulfate 1 amp 03/27/17 02:26 Ventolin 0.083% Nebulizer Soln - NEB Q4H PRN SHORT OF BREATH/WHEEZING Albuterol/Ipratropium 1 amp 03/27/17 06:00 03/27/17 11:54 Duoneb - NEB 1 amp QIDR JOSLYN Administration Amlodipine Besylate 10 mg 03/27/17 10:00 Norvasc - PO DAILY JOSLYN Chlorhexidine Gluconate 1 applic 03/27/17 22:00 Hibiclens For Decolonization - TP HS JOSLYN Furosemide 40 mg 03/27/17 06:00 03/27/17 05:18 Lasix Injection - IVPUSH 40 mg BIDLASIX JOSLYN Administration Heparin Sodium (Porcine) 5,000 unit 03/27/17 06:00 03/27/17 05:18 Heparin - SQ 5,000 unit TID JOSLYN Administration Hydralazine HCl 50 mg 03/27/17 14:00 Apresoline - PO TID JOSLYN Propofol 1,000,000 mcg in 100 mls @ 3.518 mls/hr 03/27/17 06:45 03/27/17 06: 42 Diprivan - IVPB 5 mcg/kg/min TITR JOSLYN 3.518 mls/hr Protocol Administration 5 MCG/KG/MIN Insulin Aspart 1 vial 03/27/17 06:00 03/27/17 06:44 Novolog Vial Sliding Scale - SQ 4 units Q4HPO JOSLYN Administration Protocol Methylprednisolone Sodium Succinate 60 mg 03/27/17 14:00 Solu-Medrol - IVPUSH TID JOSLYN Mupirocin 1 applic 03/27/17 10:00 Bactroban Ointment (For Decolonization) - NS 04/01/17 09:59 BID JOSLYN Pantoprazole Sodium 40 mg 03/27/17 10:00 Protonix Iv IVPUSH DAILY JOSLYN Rosuvastatin Calcium 10 mg 03/27/17 10:00 Crestor - PO DAILY JOSLYN ASSESSMENT/PLAN: The patient is a 61F with an extensive PMH who was found to have respiratory distress, and is currently intubated and sedated. Neuro: - Currently intubated and sedated with propofol CV: CHF - BNP was found to be 1084, elevated from previous BNP (325) - Receiving Lasix IV 40mg qD for CHF and CXR showing pulmonary edema HTN and HLD - Norvasc 10 mg qD - Hydralazine 50mg PO TID - Crestor 10mg PO Pulm: COPD - Solumedrol 40mg IV BID - Lasix 40mg switched to qD - Duoneb QID Renal: CKD - BUN/Cr: 24/.1 - Continue to monitor : - None GI: - Protonix 40mg IV push ID: - None - Patient remains afebrile with no WBC count Hem/Onc: Anemia of unknown origin - Hemoccult negative - Currently 8.9 from 8.2 - Continue to trend Endocrine: T2DM - ISS - novolog MSK: - None PPX: - Heparin sq - Protonix FEN (Fluids, electrolytes, nutrition): - NPO - Sedated and intubated Dispo: - Continue to monitor in ICU Visit type - Emergency Visit Emergency Visit: Yes ED Registration Date: 03/27/17 Care time: The patient presented to the Emergency Department on the above date and was hospitalized for further evaluation of their emergent condition. - New Patient This patient is new to me today: Yes Date on this admission: 03/27/17 - Critical Care Critical Care patient: Yes Total Critical Care Time (in minutes): 55 Critical Care Statement: The care of this patient involved high complexity decision making to prevent further life threatening deterioration of the patient 's condition and/or to evaluate & treat vital organ system(s) failure or risk of failure.
--- NOTE | 2017-03-27 13:34 | CON.CARD ---
Consult Consult Specialty:: Cardiology Referred by:: Hospitalist Reason for Consultation:: Cardiac evaluation - History of Present Illness Chief Complaint: Currently intubated with respiratory failure History of Present Illness: Patient is a 61 year old femal with exogenous obesity, history of schizophrenia/ bipolar disorder, chronic renal insufficiency, hypertension, COPD, CAD and diabetes mellitus who presented to ED via EMS with 2 days of respiratory distress. She complained of shotness of breath and was found to be tachypneic and hypoxic. She is currently admitted to ICU and was intubated early this morning for respiratory failure. She is maintained on mechanical ventilation and is sedated at the moment with Propofol. History was obtained from medical record. She is nonverbal at the moment. Her hemodynamics appear to be intact and she remains afebrile. - History Source History Provided By: Medical Record Limitations to Obtaining History: Intubated - Past Medical History MANAGER ELECTRICAL: Yes: TIA Cardio/Vascular: Yes: HTN Pulmonary: Yes: COPD Renal/: Yes: Renal Inusuff Infectious Disease: Yes: Other (HCV) Psych: Yes: Bipolar, Schizophrenia Endocrine: Yes: Diabetes Mellitus - Past Surgical History Past Surgical History: Yes: Hysterectomy - Alcohol/Substance Use Hx Alcohol Use: No History of Substance Use: reports: None - Smoking History Smoking history: Current every day smoker Have you smoked in the past 12 months: Yes Aproximately how many cigarettes per day: 4 - Social History Usual Living Arrangement: Alone ADL: Support Services History of Recent Travel: No Home Medications - Allergies Allergies/Adverse Reactions: Allergies Allergy/AdvReac Type Severity Reaction Status Date / Time ibuprofen [From Motrin IB] Allergy Verified 03/20/17 12:51 metformin Allergy Verified 03/20/17 12:51 Penicillins Allergy Verified 03/20/17 12:51 - Home Medications Home Medications: Ambulatory Orders Escitalopram Oxalate [Lexapro -] 20 mg PO DAILY 09/14/15 Olanzapine [Zyprexa -] 10 mg PO HS 09/14/15 Aspirin Coated [Ecotrin -] 81 mg PO DAILY #30 tablet.ec 09/16/15 Amlodipine Besylate [Norvasc -] 10 mg PO DAILY 02/25/16 Carvedilol [Coreg -] 12.5 mg PO BID 02/25/16 Hydralazine HCl [Apresoline -] 50 mg PO TID 02/25/16 Rosuvastatin Calcium [Crestor] 10 mg PO DAILY 04/15/17 Albuterol Sulfate Inhaler - [Ventolin HFA Inhaler -] 2 inh PO Q4H PRN #1 inh Hydrocodone/Acetaminophen [Vicodin Hp 10-300 mg Tablet] 1 each PO Q6H PRN Prednisone [Deltasone -] 40 mg PO DAILY #8 tablet 03/20/17 Family Disease History - Family Disease History Family Disease History: Heart Disease: Father ( in 40s) Review of Systems Unable to obtain ROS, reason: Unable to obtain Vital Signs: Vital Signs Temperature 97.8 F 03/27/17 10:00 Pulse Rate 70 03/27/17 12:00 Respiratory Rate 30 H 03/27/17 13:31 Blood Pressure 143/80 03/27/17 12:00 O2 Sat by Pulse Oximetry (%) 99 03/27/17 10:40 Respiratory: Yes: Mechanically Ventilated Gastrointestinal: Yes: Normal Bowel Sounds, Soft, Abdomen, Obese. No: Tenderness Cardiovascular: Yes: Regular Rate and Rhythm JVD: No Carotid Bruit: No PMI: Non-Displaced Heart Sounds: Yes: S1, S2 Edema: No - Other Data Labs, Other Data: CBC, BMP 03/27/17 05:00 03/27/17 05:00 INR, PTT INR 1.02 (0.82-1.09) 03/27/17 05:00 Troponin, BNP 03/26/17 03/26/17 03/27/17 23:15 23:15 05:00 Troponin I < 0.02 < 0.02 B-Natriuretic Peptide 1084.72 H Normal sinus rhythm with no ST-T abnormality Echo: Pending Imaging - Results Chest X-ray: Report Reviewed (Large heart, some congestion) EKG: Report Reviewed Problem List - Problems (1) Acute respiratory failure with hypoxia and hypercapnia Code(s): J96.01 - ACUTE RESPIRATORY FAILURE WITH HYPOXIA; J96.02 - ACUTE RESPIRATORY FAILURE WITH HYPERCAPNIA (2) CAD (coronary artery disease) Code(s): I25.10 - ATHSCL HEART DISEASE OF [place] CORONARY ARTERY W/O ANG PCTRS Qualifiers: Coronary Disease-Associated Artery/Lesion type: [place] artery [place] vs. transplanted heart: [place] heart Associated angina: without angina Qualified Code(s): I25.10 - Atherosclerotic heart disease of [place] coronary artery without angina pectoris (3) Hypertension Code(s): I10 - ESSENTIAL (PRIMARY) HYPERTENSION Qualifiers: Hypertension type: essential hypertension Qualified Code(s): I10 - Essential (primary) hypertension (4) Schizophrenia Code(s): F20.9 - SCHIZOPHRENIA, UNSPECIFIED Qualifiers: Schizophrenia type: unspecified Qualified Code(s): F20.9 - Schizophrenia, unspecified (5) Bipolar disorder Code(s): F31.9 - BIPOLAR DISORDER, UNSPECIFIED Qualifiers: Active/Remission status: remission status unspecified Qualified Code(s): F31.9 - Bipolar disorder, unspecified (6) Endotracheally intubated Code(s): Z97.8 - PRESENCE OF OTHER SPECIFIED DEVICES (7) COPD (chronic obstructive pulmonary disease) Code(s): J44.9 - CHRONIC OBSTRUCTIVE PULMONARY DISEASE, UNSPECIFIED Qualifiers: COPD type: unspecified COPD Qualified Code(s): J44.9 - Chronic obstructive pulmonary disease, unspecified (8) COPD exacerbation Code(s): J44.1 - CHRONIC OBSTRUCTIVE PULMONARY DISEASE W (ACUTE) EXACERBATION (9) Chronic kidney insufficiency Code(s): N18.9 - CHRONIC KIDNEY DISEASE, UNSPECIFIED Qualifiers: Chronic kidney disease stage: unspecified stage Qualified Code(s): N18.9 - Chronic kidney disease, unspecified (10) Diabetes mellitus Code(s): E11.9 - TYPE 2 DIABETES MELLITUS WITHOUT COMPLICATIONS Qualifiers: Diabetes mellitus type: type 2 Diabetes mellitus complication status: without complication Diabetes mellitus fpc insulin use: without fpc use Qualified Code(s): E11.9 - Type 2 diabetes mellitus without complications Assessment/Plan 1. Acute hypoxic/hypercapneic espiratory failure resulting in intubation and on mechanical ventilation. etiology possibly due to COPD exacerbation vs. CHF 2. History of hypertension 3. History of diabetes mellitus 4. History of schizophrenia/bipolar disorder 5. CKD 6. CAD 7. Exogenous obesity PLAN: 1. Mechanical ventilation and management as per critical care team 2. Transthoracic echocardiography to assess LV/RV and valvular function 3. DVT and GI prophylasix 4. May give IV Hydralazine if needed while she is intubated. 5. Continue steroid taper Further plans are to follow Johnny Romero MD
--- NOTE | 2017-03-27 14:41 | MSN ---
Progress Note (short form) - Note Progress Note: Subjective: Cristela Gonzalez is a 61 year old female with pmhx of Schizophrenia/bipolar disorder , HTN, CKD (stage III-IV), COPD, CAD, DM, Hep C, who was BIBA for respiratory distress. Patient was admitted to the ICU for Respiratory failure secondary to COPD and CHF exacerbation. Patient is non-verbal, non-responsive to verbal and tactile stimuli. Unable to obtain further history due to patient's condition. Objective: Last Vital Signs Temp Pulse Resp BP Pulse Ox 97.8 F 70 30 H 143/80 99 03/27/17 10:00 03/27/17 12:00 03/27/17 13:31 03/27/17 12:00 03/27/17 10:40 Physical Exam: General: Non-verbal, non-responsive to verbal or tactile stimuli Heart: RRR without MRG Lungs: Bilateral Ronchi L>R, bilateral wheezes heard posteriorly Abdomen: Soft, BS present and hypoactive Extremities: Bilateral pitting edema in the lower extremities Unable to obtain further physical exam findings due to patient's condition. Laboratory Results - last 24 hr 03/26/17 03/26/17 03/26/17 23:15 23:15 23:15 WBC 8.7 D RBC 3.48 L Hgb 8.2 L D Hct 27.1 L MCV 78.0 L MCH 23.7 L MCHC 30.4 L RDW 19.9 H Plt Count 223 MPV 6.9 L Neutrophils % 70.5 Lymphocytes % 13.7 Monocytes % 14.4 H Eosinophils % 1.0 D Basophils % 0.4 Platelet Comment No clumping noted PT with INR INR Anticoagulation Therapy Puncture Site ABG pH ABG pCO2 at Pt Temp ABG pO2 at Pt Temp ABG HCO3 ABG O2 Sat (Measured) ABG O2 Content ABG Base Excess Good Test Carboxyhemoglobin Methemoglobin O2 Delivery Device Oxygen Flow Rate Vent Mode Vent Rate Mechanical Rate PEEP Pressure Support Vent Sodium 133 L Potassium 4.7 D Chloride 98 Carbon Dioxide 28 Anion Gap 7 L BUN 25 H Creatinine 1.1 H Creat Clearance w eGFR 50.33 POC Glucometer Random Glucose 128 H Lactic Acid 1.1 Calcium 7.9 L Phosphorus Magnesium 2.0 Total Bilirubin 0.4 AST 36 D ALT 36 D Alkaline Phosphatase 156 H Creatine Kinase Troponin I B-Natriuretic Peptide Total Protein 7.6 Albumin 3.2 L Vitamin B12 Serum Folate Urine Color Urine Appearance Urine pH Ur Specific Bromide Urine Protein Urine Glucose (UA) Urine Ketones Urine Blood Urine Nitrite Urine Bilirubin Urine Urobilinogen Ur Leukocyte Esterase Stool Occult Blood Opiates Screen Methadone Screen Barbiturate Screen Phencyclidine Screen Ur Amphetamines Screen MDMA (Ecstasy) Screen Benzodiazepines Screen Cocaine Screen U Marijuana (THC) Screen Blood Type Antibody Screen 03/26/17 03/26/17 03/26/17 23:15 23:15 23:15 WBC RBC Hgb Hct MCV MCH MCHC RDW Plt Count MPV Neutrophils % Lymphocytes % Monocytes % Eosinophils % Basophils % Platelet Comment PT with INR 11.00 INR 0.97 Anticoagulation Therapy Puncture Site ABG pH ABG pCO2 at Pt Temp ABG pO2 at Pt Temp ABG HCO3 ABG O2 Sat (Measured) ABG O2 Content ABG Base Excess Good Test Carboxyhemoglobin Methemoglobin O2 Delivery Device Oxygen Flow Rate Vent Mode Vent Rate Mechanical Rate PEEP Pressure Support Vent Sodium Potassium Chloride Carbon Dioxide Anion Gap BUN Creatinine Creat Clearance w eGFR POC Glucometer Random Glucose Lactic Acid Calcium Phosphorus Magnesium Total Bilirubin AST ALT Alkaline Phosphatase Creatine Kinase 65 Troponin I < 0.02 B-Natriuretic Peptide 1084.72 H Total Protein Albumin Vitamin B12 Serum Folate Urine Color Urine Appearance Urine pH Ur Specific Bromide Urine Protein Urine Glucose (UA) Urine Ketones Urine Blood Urine Nitrite Urine Bilirubin Urine Urobilinogen Ur Leukocyte Esterase Stool Occult Blood Opiates Screen Methadone Screen Barbiturate Screen Phencyclidine Screen Ur Amphetamines Screen MDMA (Ecstasy) Screen Benzodiazepines Screen Cocaine Screen U Marijuana (THC) Screen Blood Type Antibody Screen 03/26/17 03/27/17 03/27/17 23:35 00:19 00:19 WBC RBC Hgb Hct MCV MCH MCHC RDW Plt Count MPV Neutrophils % Lymphocytes % Monocytes % Eosinophils % Basophils % Platelet Comment PT with INR INR Anticoagulation Therapy Y Puncture Site Right radial ABG pH 7.26 L ABG pCO2 at Pt Temp 60.7 H* ABG pO2 at Pt Temp 79.6 L ABG HCO3 26.0 ABG O2 Sat (Measured) 94.2 ABG O2 Content 11.0 L ABG Base Excess -1.0 Good Test Positive Carboxyhemoglobin 4.8 H Methemoglobin 0.6 O2 Delivery Device Nasal canula Oxygen Flow Rate 8 l Vent Mode Y Vent Rate Y Mechanical Rate Y PEEP 0.0 Pressure Support Vent Y Sodium Potassium Chloride Carbon Dioxide Anion Gap BUN Creatinine Creat Clearance w eGFR POC Glucometer Random Glucose Lactic Acid Calcium Phosphorus Magnesium Total Bilirubin AST ALT Alkaline Phosphatase Creatine Kinase Troponin I B-Natriuretic Peptide Total Protein Albumin Vitamin B12 Serum Folate Urine Color Ltyellow Urine Appearance Clear Urine pH 5.0 Ur Specific Bromide 1.009 Urine Protein Negative Urine Glucose (UA) Negative Urine Ketones Negative Urine Blood Negative Urine Nitrite Negative Urine Bilirubin Negative Urine Urobilinogen Negative Ur Leukocyte Esterase Negative Stool Occult Blood Opiates Screen Positive Methadone Screen Negative Barbiturate Screen Negative Phencyclidine Screen Negative Ur Amphetamines Screen Negative MDMA (Ecstasy) Screen Negative Benzodiazepines Screen Positive Cocaine Screen Negative U Marijuana (THC) Screen Negative Blood Type Antibody Screen 03/27/17 03/27/17 03/27/17 00:40 00:40 05:00 WBC 6.1 RBC 3.69 Hgb 8.9 L Hct 28.5 L MCV 77.2 L MCH 24.2 L MCHC 31.4 L RDW 19.7 H Plt Count 242 MPV 6.7 L Neutrophils % 91.5 H D Lymphocytes % 5.4 L D Monocytes % 2.8 L D Eosinophils % 0.1 D Basophils % 0.2 Platelet Comment PT with INR INR Anticoagulation Therapy Y Puncture Site Right radial ABG pH 7.26 L ABG pCO2 at Pt Temp 58.9 H ABG pO2 at Pt Temp 138.0 H D ABG HCO3 25.8 ABG O2 Sat (Measured) 99.0 H ABG O2 Content 11.5 L ABG Base Excess -1.0 Good Test Positive Carboxyhemoglobin Methemoglobin O2 Delivery Device Y Oxygen Flow Rate 70% Vent Mode S/t Vent Rate 16 Mechanical Rate Bipap PEEP 5.0 Pressure Support Vent 16 Sodium Potassium Chloride Carbon Dioxide Anion Gap BUN Creatinine Creat Clearance w eGFR POC Glucometer Random Glucose Lactic Acid Calcium Phosphorus Magnesium Total Bilirubin AST ALT Alkaline Phosphatase Creatine Kinase Troponin I B-Natriuretic Peptide Total Protein Albumin Vitamin B12 Serum Folate Urine Color Urine Appearance Urine pH Ur Specific Bromide Urine Protein Urine Glucose (UA) Urine Ketones Urine Blood Urine Nitrite Urine Bilirubin Urine Urobilinogen Ur Leukocyte Esterase Stool Occult Blood Negative Opiates Screen Methadone Screen Barbiturate Screen Phencyclidine Screen Ur Amphetamines Screen MDMA (Ecstasy) Screen Benzodiazepines Screen Cocaine Screen U Marijuana (THC) Screen Blood Type Antibody Screen 03/27/17 03/27/1703/27/17 05:00 05:00 05:00 WBC RBC Hgb Hct MCV MCH MCHC RDW Plt Count MPV Neutrophils % Lymphocytes % Monocytes % Eosinophils % Basophils % Platelet Comment PT with INR 11.50 INR 1.02 Anticoagulation Therapy Puncture Site ABG pH ABG pCO2 at Pt Temp ABG pO2 at Pt Temp ABG HCO3 ABG O2 Sat (Measured) ABG O2 Content ABG Base Excess Good Test Carboxyhemoglobin Methemoglobin O2 Delivery Device Oxygen Flow Rate Vent Mode Vent Rate Mechanical Rate PEEP Pressure Support Vent Sodium 137 Potassium 4.3 Chloride 100 Carbon Dioxide 30 Anion Gap 7 L BUN 24 H Creatinine 1.1 H Creat Clearance w eGFR 50.33 POC Glucometer Random Glucose 187 H D Lactic Acid Calcium 8.0 L Phosphorus 3.8 D Magnesium 2.1 Total Bilirubin 0.4 AST 19 D ALT 38 Alkaline Phosphatase 148 H Creatine Kinase Troponin I B-Natriuretic Peptide Total Protein 7.3 Albumin 3.1 L Vitamin B12 Serum Folate 7 Urine Color Urine Appearance Urine pH Ur Specific Bromide Urine Protein Urine Glucose (UA) Urine Ketones Urine Blood Urine Nitrite Urine Bilirubin Urine Urobilinogen Ur Leukocyte Esterase Stool Occult Blood Opiates Screen Methadone Screen Barbiturate Screen Phencyclidine Screen Ur Amphetamines Screen MDMA (Ecstasy) Screen Benzodiazepines Screen Cocaine Screen U Marijuana (THC) Screen Blood Type O POSITIVE Antibody Screen Negative 03/27/17 03/27/17 03/27/17 05:00 05:00 05:10 WBC RBC Hgb Hct MCV MCH MCHC RDW Plt Count MPV Neutrophils % Lymphocytes % Monocytes % Eosinophils % Basophils % Platelet Comment PT with INR INR Anticoagulation Therapy Puncture Site ABG pH ABG pCO2 at Pt Temp ABG pO2 at Pt Temp ABG HCO3 ABG O2 Sat (Measured) ABG O2 Content ABG Base Excess Good Test Carboxyhemoglobin Methemoglobin O2 Delivery Device Oxygen Flow Rate Vent Mode Vent Rate Mechanical Rate PEEP Pressure Support Vent Sodium Potassium Chloride Carbon Dioxide Anion Gap BUN Creatinine Creat Clearance w eGFR POC Glucometer [phone] Random Glucose Lactic Acid Calcium Phosphorus Magnesium Total Bilirubin AST ALT Alkaline Phosphatase Creatine Kinase 49 Troponin I < 0.02 B-Natriuretic Peptide Total Protein Albumin Vitamin B12 482 Serum Folate Urine Color Urine Appearance Urine pH Ur Specific Bromide Urine Protein Urine Glucose (UA) Urine Ketones Urine Blood Urine Nitrite Urine Bilirubin Urine Urobilinogen Ur Leukocyte Esterase Stool Occult Blood Opiates Screen Methadone Screen Barbiturate Screen Phencyclidine Screen Ur Amphetamines Screen MDMA (Ecstasy) Screen Benzodiazepines Screen Cocaine Screen U Marijuana (THC) Screen Blood Type Antibody Screen 03/27/17 03/27/17 05:45 08:00 WBC RBC Hgb Hct MCV MCH MCHC RDW Plt Count MPV Neutrophils % Lymphocytes % Monocytes % Eosinophils % Basophils % Platelet Comment PT with INR INR Anticoagulation Therapy Y Puncture Site Right radial Right radial ABG pH 7.28 L 7.29 L ABG pCO2 at Pt Temp 64.6 H* 62.8 H* ABG pO2 at Pt Temp 116.0 H D 88.6 D ABG HCO3 29.2 H 28.9 H ABG O2 Sat (Measured) 98.3 96.3 ABG O2 Content 12.5 L 11.7 L ABG Base Excess 2.1 H 2.0 Good Test Positive Positive Carboxyhemoglobin Methemoglobin O2 Delivery Device Y Oxygen Flow Rate Yes Y Vent Mode Y Vent Rate 16 Mechanical Rate Y PEEP 5.0 Pressure Support Vent Y Sodium Potassium Chloride Carbon Dioxide Anion Gap BUN Creatinine Creat Clearance w eGFR POC Glucometer Random Glucose Lactic Acid Calcium Phosphorus Magnesium Total Bilirubin AST ALT Alkaline Phosphatase Creatine Kinase Troponin I B-Natriuretic Peptide Total Protein Albumin Vitamin B12 Serum Folate Urine Color Urine Appearance Urine pH Ur Specific Bromide Urine Protein Urine Glucose (UA) Urine Ketones Urine Blood Urine Nitrite Urine Bilirubin Urine Urobilinogen Ur Leukocyte Esterase Stool Occult Blood Opiates Screen Methadone Screen Barbiturate Screen Phencyclidine Screen Ur Amphetamines Screen MDMA (Ecstasy) Screen Benzodiazepines Screen Cocaine Screen U Marijuana (THC) Screen Blood Type Antibody Screen Current Medications Generic Name Dose Route Start Last Admin Trade Name Freq PRN Reason Stop Dose Admin Albuterol Sulfate 1 amp 03/27/17 02:26 Ventolin 0.083% Nebulizer Soln - NEB Q4H PRN SHORT OF BREATH/WHEEZING Albuterol/Ipratropium 1 amp 03/27/17 06:00 03/27/17 11:54 Duoneb - NEB 1 amp QIDR JOSLYN Administration Amlodipine Besylate 10 mg 03/27/17 10:00 Norvasc - PO DAILY JOSLYN Chlorhexidine Gluconate 1 applic 03/27/17 22:00 Hibiclens For Decolonization - TP HS JOSLYN Furosemide 40 mg 03/28/17 10:00 Lasix Injection - IVPUSH DAILY JOSLYN Heparin Sodium (Porcine) 5,000 unit 03/27/17 06:00 03/27/17 05:18 Heparin - SQ 5,000 unit TID JOSLYN Administration Hydralazine HCl 50 mg 03/27/17 14:00 Apresoline - PO TID JOSLYN Propofol 1,000,000 mcg in 100 mls @ 3.518 mls/hr 03/27/17 06:45 03/27/17 06: 42 Diprivan - IVPB 5 mcg/kg/min TITR JOSLYN 3.518 mls/hr Protocol Administration 5 MCG/KG/MIN Insulin Aspart 1 vial 03/27/17 06:00 03/27/17 06:44 Novolog Vial Sliding Scale - SQ 4 units Q4HPO JOSLYN Administration Protocol Methylprednisolone Sodium Succinate 60 mg 03/27/17 14:00 Solu-Medrol - IVPUSH TID [facility] Mupirocin 1 applic 03/27/17 10:00 Bactroban Ointment (For Decolonization) - NS 04/01/17 09:59 BID JOSLYN Pantoprazole Sodium 40 mg 03/27/17 10:00 Protonix Iv IVPUSH DAILY [facility] Rosuvastatin Calcium 10 mg 03/27/17 10:00 Crestor - PO DAILY [facility] A/P: Cristela Gonzalez is a 61 year old female with pmhx of Schizophrenia/bipolar disorder , HTN, CKD (stage III-IV), COPD, CAD, DM, Hep C, who was BIBA for respiratory distress. Patient was admitted to the ICU for Respiratory failure secondary to COPD and CHF exacerbation. 1. Respiratory failure secondary to COPD and CHF exacerbation - Respiratory failure is likely due to COPD>CHF - CXR showed early ARDS - Patient was intubated today morning at 6:30am - For sedation and analgesia- Patient was given Fentanyl 100 mcg IVPUSH once and Propofol 1,000,000 mcg in 100 mls @ 3.518 mls/hr IVPB TID - Insert NG tube 2. COPD Exacerbation - Solu-medrol 60 mg IVPUSH TID (changed from 40 mg BID) - DuoNeb PRN, but patient is currently intubated - Patient is hypercapnic with CO2 in the 60's. Next ABG will be done tomorrow morning 3. CHF Exacerbation - Patient is being diuresed with Lasix 40 mg IVPUSH BID - Echo was done-echo showed aortic sclerosis, otherwise negative 4. Anemia - B12, Folate normal - Order transferrin, iron, TIBC 5. HTN - Amlodipine 10 mg PO daily 5. DM - ISS- Novolog 6. DVT Proph - Heparin 5000U SQ Dispo: Continue to monitor in ICU.
[2017-03-27] MEDS: hydrALAZINE HCL 25 MG TABLET (FP) PO SCH ×2 (15:14→21:47)
[2017-03-27] MEDS: ROSUVASTATIN CA 10 MG TABLET (FP) PO SCH (15:14)
[2017-03-27] MEDS: amLODIPine BESYLATE 10 MG TABLET (FP) PO SCH (15:14)
[2017-03-27] MEDS ORDERED: CHLORHEXIDINE GLUCONATE 4% CLEANSER FOR DECOLONIZATION TP SCH (22:00)
[2017-03-28] MEDS: ALBUTEROL SO4 2.5/IPRATROPIUM 0.5 INH SOL 3 ML VIAL.NEB. NEB SCH ×2 (00:10→06:44)
[2017-03-28] MEDS: INSULIN SLIDING SCALE (NOVOLOG) 1 VIAL SQ SCH ×5 (02:10→21:28)
[2017-03-28 06:04] LABS: BASO % 0.1 % (0-2.0); HEMATOCRIT 28.5 % (32.4-45.2); LYMPH % 9.8 % (8-40); MCHC 31.5 g/dl (32.0-36.0); MEAN CELL VOLUME 76.4 fl (80-96); MEAN PLT VOLUME 6.9 fl (7.5-11.1); MONO % 5.7 % (3.8-10.2); NEUT % 84.4 % (42.8-82.8); PLATELET COUNT 255 K/MM3 (134-434); RBC 3.73 M/mm3 (3.60-5.2); RDW 19.7 % (11.6-15.6); WHITE BLOOD COUNT 4.2 K/mm3 (4.0-10.0)
[2017-03-28 06:06] LABS: SERUM IRON SATURATION 4 % (15-55); TOTAL IRON BINDING CAPACITY 450 ug/dL (250-450); UIBC 430 ug/dL (118-369)
[2017-03-28] MEDS: methylPREDNISolone NA SUCC 40 MG/1 ML VIAL IVPUSH SCH (06:17)
[2017-03-28] MEDS: HEPARIN NA (PORCINE) 5,000 UNITS/ML 1ML VIAL SQ SCH ×4 (06:17→21:15)
[2017-03-28] MEDS: hydrALAZINE HCL 25 MG TABLET (FP) PO SCH (06:17)
[2017-03-28 06:24] LABS: ALBUMIN 2.5 g/dl (3.4-5.0); ANION GAP 4 (8-16); BILIRUBIN,TOTAL 0.7 mg/dL (0.2-1.0); BLOOD UREA NITROGEN 19 mg/dL (7-18); CALCIUM 7.7 mg/dL (8.5-10.1); CHLORIDE 105 mmol/L (98-107); CO2 32 mmol/L (21-32); CREATININE 0.8 mg/dL (0.55-1.02); GLUCOSE,RANDOM 155 mg/dL (74-106); MAGNESIUM 2.1 mg/dL (1.8-2.4); PHOSPHOROUS 2.8 mg/dL (2.5-4.9); POTASSIUM 3.6 mmol/L (3.5-5.1); SGOT/AST 8 U/L (15-37); SGPT/ALT 23 U/L (12-78); SODIUM 141 mmol/L (136-145); TOT PROT 6.3 g/dl (6.4-8.2)
[2017-03-28 06:34] LABS: ALK PHOS 93 U/L (45-117)
[2017-03-28] MEDS ORDERED: INSULIN DETEMIR 100 UNITS/ML MDV SQ ONE (06:52)
[2017-03-28 07:32] LABS: ARTERIAL BLD GAS O2 SATURATION 98.1 % (90-98.9); ARTERIAL BLOOD GAS BASE EXCESS 7.3 meq/l (-2-2); ARTERIAL BLOOD GAS PCO2 44.7 mmHg (35-45); ARTERIAL BLOOD GAS pH 7.46 (7.35-7.45)
[2017-03-28 07:33] LABS: ALLENS TEST POSITIVE
[2017-03-28 08:07] LABS: TRANSFERRIN 396 mg/dL (200-370)
--- NOTE | 2017-03-28 08:18 | PN ---
Physical Exam: SUBJECTIVE: Patient seen and examined at bedside. Patient is extubated and sitting in chair breathing on 2L nasal cannula. Patient states that before she came to the hospital, she had one beer and believes that is what set her off. Patient denies chest pain, SOB, nausea, vomiting, diarrhea, fevers, chills. OBJECTIVE: Vital Signs Period Temp Pulse Resp BP Sys/Osei Pulse Ox Last 24 Hr 96.9 [id number]-[id number] F 68-83 18-35 129-152/72-91 96-100 GENERAL: The patient is awake, alert, and fully oriented, in no acute distress. HEAD: Normal with no signs of trauma. EYES: PERRL, extraocular movements intact, sclera anicteric, conjunctiva clear. No ptosis. ENT: Ears normal, nares patent, oropharynx clear without exudates, moist mucous membranes. NECK: Trachea midline, full range of motion, supple. LUNGS: Breath sounds equal, clear to auscultation bilaterally, no wheezes, no crackles, no accessory muscle use. Breathing on 2L nasal cannula HEART: Regular rate and rhythm, S1, S2, systolic murmur noted on exam, rub or gallop. ABDOMEN: obese, soft, nontender, nondistended, normoactive bowel sounds, no guarding, no rebound, no hepatosplenomegaly, no masses. EXTREMITIES: 2+ pulses, warm, well-perfused, no edema. NEUROLOGICAL: Cranial nerves II through XII grossly intact. Normal speech, gait not observed. PSYCH: Normal mood, normal affect. SKIN: Warm, dry, normal turgor, no rashes or lesions noted Laboratory Results - last 24 hr 03/27/17 03/27/17 03/27/17 00:19 12:00 12:38 WBC RBC Hgb Hct MCV MCH MCHC RDW Plt Count MPV Neutrophils % Lymphocytes % Monocytes % Eosinophils % Basophils % Puncture Site ABG pH ABG pCO2 at Pt Temp ABG pO2 at Pt Temp ABG HCO3 ABG O2 Sat (Measured) ABG O2 Content ABG Base Excess Good Test Oxygen Flow Rate Vent Rate PEEP Pressure Support Vent Sodium Potassium Chloride Carbon Dioxide Anion Gap BUN Creatinine Creat Clearance w eGFR POC Glucometer [phone] Random Glucose Hemoglobin A1c % Calcium Phosphorus Magnesium Iron 20 L TIBC 450 Iron Saturation 4 L Transferrin 396 H Total Bilirubin AST ALT Alkaline Phosphatase Total Protein Albumin Triglycerides Cholesterol Total LDL Cholesterol HDL Cholesterol TSH Free T4 Ur Leukocyte Esterase Negative 03/28/17 03/28/17 03/28/17 05:00 05:00 05:00 WBC 4.2 D RBC 3.73 Hgb 9.0 L Hct 28.5 L MCV 76.4 L MCH 24.0 L MCHC 31.5 L RDW 19.7 H Plt Count 255 MPV 6.9 L Neutrophils % 84.4 H Lymphocytes % 9.8 D Monocytes % 5.7 D Eosinophils % 0.0 D Basophils % 0.1 Puncture Site ABG pH ABG pCO2 at Pt Temp ABG pO2 at Pt Temp ABG HCO3 ABG O2 Sat (Measured) ABG O2 Content ABG Base Excess Good Test Oxygen Flow Rate Vent Rate PEEP Pressure Support Vent Sodium 141 Potassium 3.6 Chloride 105 Carbon Dioxide 32 Anion Gap 4 L BUN 19 H D Creatinine 0.8 D Creat Clearance w eGFR > 60 POC Glucometer Random Glucose 155 H Hemoglobin A1c % Calcium 7.7 L Phosphorus 2.8 D Magnesium 2.1 Iron TIBC Iron Saturation Transferrin Total Bilirubin 0.7 D AST 8 L D ALT 23 D Alkaline Phosphatase 93 D Total Protein 6.3 L Albumin 2.5 L Triglycerides 165 H Cholesterol 113 Total LDL Cholesterol 40 HDL Cholesterol 62 H TSH 0.10 L D Free T4 1.35 Ur Leukocyte Esterase 03/28/17 03/28/17 05:00 07:10 WBC RBC Hgb Hct MCV MCH MCHC RDW Plt Count MPV Neutrophils % Lymphocytes % Monocytes % Eosinophils % Basophils % Puncture Site Right radial ABG pH 7.46 H D ABG pCO2 at Pt Temp 44.7 D ABG pO2 at Pt Temp 93.0 ABG HCO3 31.5 H ABG O2 Sat (Measured) 98.1 ABG O2 Content 12.2 L ABG Base Excess 7.3 H Good Test Positive Oxygen Flow Rate 40 Vent Rate 30 PEEP 5.0 Pressure Support Vent 300 Sodium Potassium Chloride Carbon Dioxide Anion Gap BUN Creatinine Creat Clearance w eGFR POC Glucometer Random Glucose Hemoglobin A1c % 6.2 H D Calcium Phosphorus Magnesium Iron TIBC Iron Saturation Transferrin Total Bilirubin AST ALT Alkaline Phosphatase Total Protein Albumin Triglycerides Cholesterol Total LDL Cholesterol HDL Cholesterol TSH Free T4 Ur Leukocyte Esterase Active Medications Home Medication List Medication Instructions Recorded Confirmed Type Escitalopram Oxalate [Lexapro -] 20 mg PO DAILY 09/14/15 03/20/17 History Olanzapine [Zyprexa -] 10 mg PO HS 09/14/15 03/20/17 History Amlodipine Besylate [Norvasc -] 10 mg PO DAILY 02/25/16 03/20/17 History Carvedilol [Coreg -] 12.5 mg PO BID 02/25/16 03/20/17 History Hydralazine HCl [Apresoline -] 50 mg PO TID 02/25/16 03/20/17 History Rosuvastatin Calcium [Crestor] 10 mg PO DAILY 08/06/16 03/20/17 History Hydrocodone/Acetaminophen [Vicodin 1 each PO Q6H PRN 12/03/16 03/20/17 History Hp 10-300 mg Tablet] Active Medications Generic Name Dose Route Start Last Admin Trade Name Freq PRN Reason Stop Dose Admin Albuterol Sulfate 1 amp 03/27/17 02:26 Ventolin 0.083% Nebulizer Soln - NEB Q4H PRN SHORT OF BREATH/WHEEZING Albuterol/Ipratropium 1 amp 03/28/17 12:14 03/28/17 09:30 Duoneb - NEB 1 amp Q6H PRN Administration SHORT OF BREATH/WHEEZING Amlodipine Besylate 10 mg 03/27/17 10:00 03/28/17 10:26 Norvasc - PO 10 mg DAILY [facility] Administration Carvedilol 12.5 mg 03/28/17 12:15 Coreg - PO BID [facility] Chlorhexidine Gluconate 1 applic 03/27/17 22:00 03/27/17 21:42 Hibiclens For Decolonization - TP 1 applic HS JOSLYN Administration Escitalopram Oxalate 20 mg 03/29/17 10:00 Lexapro - PO DAILY [facility] Ferrous Sulfate 325 mg 03/28/17 12:30 Feosol - PO DAILY JOSLYN Furosemide 40 mg 03/28/17 10:00 03/28/17 10:47 Lasix Injection - IVPUSH 40 mg DAILY [facility] Administration Heparin Sodium (Porcine) 5,000 unit 03/27/17 06:00 03/28/17 06:17 Heparin - SQ 5,000 unit TID JOSLYN Administration Insulin Aspart 1 vial 03/28/17 16:30 03/28/17 12:00 Novolog Vial Sliding Scale - SQ 2 units ACHS JOSLYN Administration Protocol Lisinopril 5 mg 03/28/17 12:30 Prinivil PO DAILY JOSLYN Methylprednisolone Sodium Succinate 40 mg 03/29/17 10:00 Solu-Medrol - IVPUSH 04/01/17 09:59 DAILY JOSLYN Mupirocin 1 applic 03/27/17 10:00 03/28/17 10:27 Bactroban Ointment (For Decolonization) - NS 04/01/17 09:59 1 applic BID JOSLYN Administration Olanzapine 10 mg 03/28/17 22:00 Zyprexa - PO HS JOSLYN Pantoprazole Sodium 40 mg 03/29/17 10:00 Protonix - PO DAILY JOSLYN Rosuvastatin Calcium 10 mg 03/27/17 10:00 03/28/17 10:26 Crestor - PO 10 mg DAILY JOSLYN Administration ASSESSMENT/PLAN: 61 year old female with a past medical history of HTN, CAD, diabetes, Hep C, CKD stage III-IV, COPD, bipolar/schizophrenia admitted to the ICU for acute hypercapnic respiratory failure secondary to CHF and COPD exacerbation due to medication non-compliance (patient had not taken albuterol in several days). Patient was found to be in hypercapnic respiratory failure and put on Bipap overnight. It was not improving her respiratory status and patient was intubated in the ICU and mechanical ventilation was begun. #Hypercapnic Respiratory Failure 2/2 CHF exacerbation - patient being treated in ICU -patient now extubated -ABG this am showed improvement, patient is no longer in respiratory acidosis ( ph 7.46 today) -CXR today showed increasing congestive changes compared to yesterday -methylprednisolone reduced to 40 IV daily -lasix 40 QD -fluid restriction -strict I's/O's -Patient can be transferred out of ICU #Hypertension: BP stable today at 152/85 -restart home hydralazine 50mg TID -restart home amlodipine 10mg QD #CKD stage III/IV: creatinine improved to 0.8 -baseline on previous admissions was >1.1 #Anemia: Hgb improving -iron studies show iron deficiency, f/u with ferritin -B12 and folate were within normal limits #Diabetes Mellitus: -Insulin sliding scale #Hepatitis C: -not an active concern #FEN -No standing fluids -electrolytes within normal limits -NPO, meds through [facility] #Prophylaxis -Heparin 5000 subq TID #Disposition -Continue management in ICU -Full code Visit type - Emergency Visit Emergency Visit: No - New Patient This patient is new to me today: No - Critical Care Critical Care patient: Yes Total Critical Care Time (in minutes): 30 Critical Care Statement: The care of this patient involved high complexity decision making to prevent further life threatening deterioration of the patient 's condition and/or to evaluate & treat vital organ system(s) failure or risk of failure.
[2017-03-28] MEDS: PROPOFOL 1,000,000 MCG/100 ML VIAL IVPB SCH ×2 (08:45)
[2017-03-28] MEDS ORDERED: FUROSEMIDE 40 MG/4 ML INJECTABLE VIAL IVPUSH SCH (10:00)
[2017-03-28] MEDS: ROSUVASTATIN CA 10 MG TABLET (FP) PO SCH (10:26)
[2017-03-28] MEDS: amLODIPine BESYLATE 10 MG TABLET (FP) PO SCH (10:26)
[2017-03-28] MEDS: MUPIROCIN 2% TOPICAL OINTMENT FOR DECOLONIZATION NS SCH (10:27)
[2017-03-28] MEDS: PANTOPRAZOLE SODIUM 40 MG VIAL IVPUSH SCH (10:27)
--- NOTE | 2017-03-28 10:49 | PN ---
Progress Note (short form) - Note Progress Note: Chief Complaint: Events noted, notes reviewed, extubated, requesting food, denies any chest pain or dyspnea History of Present Illness: Seen and examined in the intensive care unit. Events noted, notes reviewed, extubated, requesting food, denies any chest pain or dyspnea Echocardiography performed yesterday revealed normal left ventricular systolic function, moderate aortic valve sclerosis Medications: Current Medications Albuterol Sulfate (Ventolin 0.083% Nebulizer Soln -) 1 amp NEB Q4H PRN PRN Reason: SHORT OF BREATH/WHEEZING Albuterol/Ipratropium (Duoneb -) 1 amp NEB Q6H PRN PRN Reason: SHORT OF BREATH/WHEEZING Amlodipine Besylate (Norvasc -) 10 mg PO DAILY [facility] Carvedilol (Coreg -) 12.5 mg PO BID [facility] Chlorhexidine Gluconate (Hibiclens For Decolonization -) 1 applic TP HS [facility] Escitalopram Oxalate (Lexapro -) 20 mg PO DAILY [facility] Ferrous Sulfate (Feosol -) 325 mg PO DAILY [facility] Furosemide (Lasix Injection -) 40 mg IVPUSH DAILY [facility] Heparin Sodium (Porcine) (Heparin -) 5,000 unit SQ TID [facility] Last Admin: 03/28/17 13:59 Dose: Not Given Insulin Aspart (Novolog Vial Sliding Scale -) 1 vial SQ ACHS [facility] PRN Reason: Protocol Lisinopril (Prinivil) 5 mg PO DAILY [facility] Methylprednisolone Sodium Succinate (Solu-Medrol -) 40 mg IVPUSH DAILY [facility] Stop: 04/01/17 09:59 Mupirocin (Bactroban Ointment (For Decolonization) -) 1 applic NS BID [facility] Stop: 04/01/17 09:59 Olanzapine (Zyprexa -) 10 mg PO HS [facility] Pantoprazole Sodium (Protonix -) 40 mg PO DAILY [facility] Rosuvastatin Calcium (Crestor -) 10 mg PO DAILY [facility] Review of Systems Vital Signs: Last Vital Signs Temp Pulse Resp BP Pulse Ox 98.5 F 76 24 154/82 96 03/28/17 14:00 03/28/17 14:00 03/28/17 14:00 03/28/17 14:00 03/28/17 11:00 Intake & Output 03/25/17 03/26/17 03/27/17 03/28/17 23:59 23:59 23:59 23:59 Intake Total 438.4 565.4 Output Total 6800 1999 Balance -6361.6 -1434.6 Weight 218 lb 258 lb 9 oz 247 lb 14.4 oz Neck: Supple Negative JVD bilateral carotid bruit probably transmitted heart murmur Cardiovascular: S1 S2 regular rate rhythm grade 2/6 systolic ejection murmur Respiratory: Diminished breath sounds at the bases Gastrointestinal: Soft Benign Normal Bowel Sounds Ext: No Edema Labs: CBC, BMP 03/28/17 05:00 03/28/17 05:00 Hepatic Panel Total Bilirubin 0.7 mg/dL (0.2-1.0) D 03/28/17 05:00 AST 8 U/L (15-37) L D 03/28/17 05:00 ALT 23 U/L (12-78) D 03/28/17 05:00 Alkaline Phosphatase 93 U/L (45-117) D 03/28/17 05:00 Albumin 2.5 g/dl (3.4-5.0) L 03/28/17 05:00 INR, PTT INR 1.02 (0.82-1.09) 03/27/17 05:00 Assessment/Plan ASSESSMENT: 1. Acute hypoxic/hypercapneic respiratory failure post extubation most likely related to 2. Acute on chronic class II [place] [employer] classification diastolic left ventricular congestive heart failure, resolving 3. Reactive airway disease/chronic obstructive pulmonary disease, exacerbation resolving 4. Probable CAD angina pectoris 5. Hypertensive cardiovascular disease 6. Diabetes mellitus 7. History of schizophrenia/bipolar disorder 8. CKD 9. anemia 10. Exogenous obesity PLAN: 1. Beta blockers, Coreg and titrate as needed and as tolerated 2. REJI inhibitors,Prinivil and titrate as needed and as tolerated 3. Diuretics, Lasix +/- Aldactone 4. Continue Norvasc 5. Continue Crestor 6. Daily Aspirin 7. Patient will eventually require myocardial perfusion imaging study to assess severity of coronary artery disease, can be performed on outpatient basis 8. Bronchodilators and Steroids as per pulmonary team Rin Shaw MD
[2017-03-28] MEDS ORDERED: INSULIN (NOVOLOG) ASPART 100 UNITS/ML 10ML VIAL ONE ×2 (11:30→20:56)
--- NOTE | 2017-03-28 11:46 | PN ---
Teaching Attending Note Name of Resident: Raghu Gonzalez ATTENDING PHYSICIAN STATEMENT Time of evaluation: 9:00 AM I saw and evaluated the patient. I reviewed the resident's note and discussed the case with the resident. I agree with the resident's findings and plan as documented. SUBJECTIVE: Patient seen and examined. Intubated but awake, wanting the tube out. No pain or other complaints. Anxious and agitated due to the ET tube. OBJECTIVE: Vital Signs Period Temp Pulse Resp BP Sys/Osei Pulse Ox Last 24 Hr 96.9 F-9734 F 68-83 18-35 129-157/72-90 96-100 Intake & Output 03/25/17 03/26/17 03/27/17 03/28/17 23:59 23:59 23:59 23:59 Intake Total 438.4 200 Output Total 6100 700 Balance -5661.6 -500 Weight 218 lb 258 lb 9 oz 247 lb 14.4 oz General: anxious, awake, intubated in bed CVS:S1S2 regular Chest: scattered rhonchi, occasional wheezing Abdomen: soft, obese, NT Extremities: no pedal edema noted Neuro: off sedation, awake, responsive, agitation, responds to name appropriately and follows simple commands, no gross deficit Home Medication List Medication Instructions Recorded Confirmed Type Escitalopram Oxalate [Lexapro -] 20 mg PO DAILY 09/14/15 03/20/17 History Olanzapine [Zyprexa -] 10 mg PO HS 09/14/15 03/20/17 History Amlodipine Besylate [Norvasc -] 10 mg PO DAILY 02/25/16 03/20/17 History Carvedilol [Coreg -] 12.5 mg PO BID 02/25/16 03/20/17 History Hydralazine HCl [Apresoline -] 50 mg PO TID 02/25/16 03/20/17 History Rosuvastatin Calcium [Crestor] 10 mg PO DAILY 08/06/16 03/20/17 History Hydrocodone/Acetaminophen [Vicodin 1 each PO Q6H PRN 12/03/16 03/20/17 History Hp 10-300 mg Tablet] Active Medications Generic Name Dose Route Start Last Admin Trade Name Freq PRN Reason Stop Dose Admin Albuterol Sulfate 1 amp 03/27/17 02:26 Ventolin 0.083% Nebulizer Soln - NEB Q4H PRN SHORT OF BREATH/WHEEZING Albuterol/Ipratropium 1 amp 03/27/17 06:00 03/28/17 06:44 Duoneb - NEB 1 amp QIDR [facility] Administration Amlodipine Besylate 10 mg 03/27/17 10:00 03/28/17 10:26 Norvasc - PO 10 mg DAILY [facility] Administration Chlorhexidine Gluconate 1 applic 03/27/17 22:00 03/27/17 21:42 Hibiclens For Decolonization - TP 1 applic HS [facility] Administration Furosemide 40 mg 03/28/17 10:00 03/28/17 10:47 Lasix Injection - IVPUSH 40 mg DAILY [facility] Administration Heparin Sodium (Porcine) 5,000 unit 03/27/17 06:00 03/28/17 06:17 Heparin - SQ 5,000 unit TID [facility] Administration Hydralazine HCl 50 mg 03/27/17 14:00 03/28/17 06:17 Apresoline - PO 50 mg TID [facility] Administration Propofol 1,000,000 mcg in 100 mls @ 3.518 mls/hr 03/27/17 06:45 03/28/17 06: 18 Diprivan - IVPB 50 mcg/kg/min TITR [facility] 35.185 mls/hr Protocol Titration 5 MCG/KG/MIN Insulin Aspart 1 vial 03/27/17 06:00 03/28/17 10:28 Novolog Vial Sliding Scale - SQ Not Given Q4HPO [facility] Protocol Methylprednisolone Sodium Succinate 60 mg 03/27/17 14:00 03/28/17 06:17 Solu-Medrol - IVPUSH 60 mg TID [facility] Administration Mupirocin 1 applic 03/27/17 10:00 03/28/17 10:27 Bactroban Ointment (For Decolonization) - NS 04/01/17 09:59 1 applic BID [facility] Administration Pantoprazole Sodium 40 mg 03/27/17 10:00 03/28/17 10:27 Protonix Iv IVPUSH 40 mg DAILY [facility] Administration Rosuvastatin Calcium 10 mg 03/27/17 10:00 03/28/17 10:26 Crestor - PO 10 mg DAILY [facility] Administration Microbiology 03/27/17 06:00 Sputum - Endotrachea Suction/Ventilator Sputum Culture - Preliminary NORMAL RESPIRATORY ALDA 03/27/17 06:00 Nares - Mrsa Screen - Right MRSA Screen - Final NO MRSA ISOLATED 03/27/17 06:00 Nares - Mrsa Screen - Left MRSA Screen - Final NO MRSA ISOLATED 03/26/17 23:12 Blood - Peripheral Venous Blood Culture - Preliminary NO GROWTH OBTAINED AFTER 24 HOURS, INCUBATION TO CONTINUE FOR 4 DAYS. 03/26/17 23:12 Blood - Peripheral Venous Blood Culture - Preliminary NO GROWTH OBTAINED AFTER 24 HOURS, INCUBATION TO CONTINUE FOR 4 DAYS. 03/27/17 06:46 Urine For Antigen Detection Legionella Antigen - Final 03/27/17 06:46 Urine For Antigen Detection Streptococcus pneumoniae Antigen (M - Final ASSESSMENT AND PLAN: 61 yof with morbid obesity, COPD, CKD ?stage III (Last creatinine in 11/2016 1.1) , bipolar, NIDDM admitted with acute hypoxic/hypercapneic respiratory failure likely combination of COPD exac with Diastolic Heart failure -Acute hypoxic/hypercapneic respiratory failure, on Bipap in ED, intubated on for lethargy and worsening ABG -Acute COPD exacerbation -Acute diastolic Heart failure exacerbation -Hypertension -NIDDM -Morbid obesity -?Undiagnosed DIRK, needs sleep study and pulmonary follow up outpatient -Bipolar disorder -?CKD stage III, last cr 11/2016 1.1 -Anemia, suspect from iron deficiency and anemia of chronic disease Plan: Improving, sedation vacation, weaning trial today. Lasix 40 mg IV daily and prn based on volume status. 2D echo noted. almost 5L neg on admission. Strict I/Os daily, weights, cardiology input appreciated, BP control. HOme meds state ?ASA/COreg, unclear if ?CAD, reconcile home med list. Also COPD major contributor. Extubate as tolerated. Taper solumedrol to BID in 24 hours. Nebs, oxygen supplementation. Hold off on antibotics. Influenza swab. Hydralazine/Norvac. COnfirm if on coreg at home, resume accordingly. ISS, diabetic diet when able to take PO. Start PO iron supplementation when able. Continue statin. Resume home bipolar meds once awake and med list reconciled. DVTPPX, Dispo pending improvement in medical issues. Critical care time spent in ICU 35 min. Plan discussed with patient.
[2017-03-28] MEDS ORDERED: ALBUTEROL SO4 2.5/IPRATROPIUM 0.5 INH SOL 3 ML VIAL.NEB. NEB PRN ×2 (12:14→13:28)
[2017-03-28] MEDS ORDERED: CARVEDILOL 6.25 MG TABLET (FP) PO SCH (12:15)
[2017-03-28] MEDS ORDERED: FERROUS SO4 325 MG TABLET (FP) PO SCH (12:30)
[2017-03-28] MEDS ORDERED: LISINOPRIL 5 MG TABLET (FP) PO SCH (12:30)
--- NOTE | 2017-03-28 12:39 | PN ---
Teaching Attending Note Name of Resident: Josiah Orr ATTENDING PHYSICIAN STATEMENT I saw and evaluated the patient. I reviewed the resident's note and discussed the case with the resident. I agree with the resident's findings and plan as documented. SUBJECTIVE: Pt seen and examined in the ICU. Extubated this AM without incident. Diuresed > 6L with lasix yesterday. No fevers recorded. OBJECTIVE: Last Vital Signs Temp Pulse Resp BP Pulse Ox 9734 F H 82 30 H 157/90 99 03/28/17 06:00 03/28/17 09:00 03/28/17 09:00 03/28/17 09:00 03/28/17 09:42 Intake & Output 03/25/17 03/26/17 03/27/17 03/28/17 23:59 23:59 23:59 23:59 Intake Total 438.4 200 Output Total 6100 700 Balance -5661.6 -500 Weight 218 lb 258 lb 9 oz 247 lb 14.4 oz Gen: NAD at rest Heart: RRR Lung: decreased breath sounds at the bases Abd: soft, nontender Ext: less edema CBC, BMP 03/28/17 05:00 03/28/17 05:00 Active Medications Albuterol Sulfate (Ventolin 0.083% Nebulizer Soln -) 1 amp NEB Q4H PRN PRN Reason: SHORT OF BREATH/WHEEZING Albuterol/Ipratropium (Duoneb -) 1 amp NEB Q6H PRN PRN Reason: SHORT OF BREATH/WHEEZING Last Admin: 03/28/17 09:30 Dose: 1 amp Amlodipine Besylate (Norvasc -) 10 mg PO DAILY [facility] Last Admin: 03/28/17 10:26 Dose: 10 mg Carvedilol (Coreg -) 12.5 mg PO BID [facility] Chlorhexidine Gluconate (Hibiclens For Decolonization -) 1 applic TP HS [facility] Last Admin: 03/27/17 21:42 Dose: 1 applic Escitalopram Oxalate (Lexapro -) 20 mg PO DAILY [facility] Ferrous Sulfate (Feosol -) 325 mg PO DAILY [facility] Furosemide (Lasix Injection -) 40 mg IVPUSH DAILY [facility] Last Admin: 03/28/17 10:47 Dose: 40 mg Heparin Sodium (Porcine) (Heparin -) 5,000 unit SQ TID [facility] Last Admin: 03/28/17 06:17 Dose: 5,000 unit Insulin Aspart (Novolog Vial Sliding Scale -) 1 vial SQ ACHS [facility] PRN Reason: Protocol Last Admin: 03/28/17 12:00 Dose: 2 units Lisinopril (Prinivil) 5 mg PO DAILY [facility] Methylprednisolone Sodium Succinate (Solu-Medrol -) 40 mg IVPUSH DAILY [facility] Stop: 04/01/17 09:59 Mupirocin (Bactroban Ointment (For Decolonization) -) 1 applic NS BID [facility] Stop: 04/01/17 09:59 Last Admin: 03/28/17 10:27 Dose: 1 applic Olanzapine (Zyprexa -) 10 mg PO HS [facility] Pantoprazole Sodium (Protonix -) 40 mg PO DAILY [facility] Rosuvastatin Calcium (Crestor -) 10 mg PO DAILY [facility] Last Admin: 03/28/17 10:26 Dose: 10 mg ASSESSMENT AND PLAN: Acute Hypoxic and Hypercapneic Respiratory Failure Acute Diastolic Heart Failure Volume Overload COPD HTN CAD CKD - continue lasix - monitor urine output, creatinine - daily weights, I/Os - beta blockers, REJI-I, d/c hydralazine - O2 to keep SpO2 >90% - less likely COPD exacerbation, rapid taper off steroids - inhaled bronchodilators as needed - PO as tolerated - DVT prophylaxis - can monitor on floor critical care time spent in reviewing chart, evaluating patient and formulating plan 35 min
--- NOTE | 2017-03-28 13:05 | MSN ---
Progress Note (short form) - Note Progress Note: Subjective: Cristela Gonzalez is a 61 yo F w/ pmhx of Scizophrenia, CKD, COPD, CAD, HTN, who was admitted for respiratory failure secondary to COPD exacerbation vs new onset CHF. Today patient is doing much better. Patient is off sedation and is responsive to verbal stimulus. Unable to obtain further history due to patient being intubated. Objective: Vital Signs Period Temp Pulse Resp BP Sys/Osei Pulse Ox Last 24 Hr 96.9 F-9734 F 68-84 18-35 129-157/72-90 96-100 Physical Exam: General: obese, appears in distress secondary to ET tube and OG tube Heart: RRR without MRG Lungs: Ronchi heard bilaterally, decreased breath sounds at the bases of the lungs bilaterally Abdomen: Bowel sounds present and normoactive, soft, non-distended Extremities: pitting edema noted in bilateral lower extremities, decreased with diuresis Laboratory Results - last 24 hr 03/27/17 03/27/17 03/27/17 12:00 12:38 15:52 WBC RBC Hgb Hct MCV MCH MCHC RDW Plt Count MPV Neutrophils % Lymphocytes % Monocytes % Eosinophils % Basophils % Puncture Site ABG pH ABG pCO2 at Pt Temp ABG pO2 at Pt Temp ABG HCO3 ABG O2 Sat (Measured) ABG O2 Content ABG Base Excess Good Test Oxygen Flow Rate Vent Rate PEEP Pressure Support Vent Sodium Potassium Chloride Carbon Dioxide Anion Gap BUN Creatinine Creat Clearance w eGFR POC Glucometer 171.05770 171.08796 Random Glucose Hemoglobin A1c % Calcium Phosphorus Magnesium Iron 20 L TIBC 450 Iron Saturation 4 L Transferrin 396 H Ferritin Total Bilirubin AST ALT Alkaline Phosphatase Total Protein Albumin Triglycerides Cholesterol Total LDL Cholesterol HDL Cholesterol TSH Free T4 03/27/17 03/27/17 03/28/17 17:56 22:16 03:17 WBC RBC Hgb Hct MCV MCH MCHC RDW Plt Count MPV Neutrophils % Lymphocytes % Monocytes % Eosinophils % Basophils % Puncture Site ABG pH ABG pCO2 at Pt Temp ABG pO2 at Pt Temp ABG HCO3 ABG O2 Sat (Measured) ABG O2 Content ABG Base Excess Good Test Oxygen Flow Rate Vent Rate PEEP Pressure Support Vent Sodium Potassium Chloride Carbon Dioxide Anion Gap BUN Creatinine Creat Clearance w eGFR POC Glucometer 141.32954 175.19762 185.95142 Random Glucose Hemoglobin A1c % Calcium Phosphorus Magnesium Iron TIBC Iron Saturation Transferrin Ferritin Total Bilirubin AST ALT Alkaline Phosphatase Total Protein Albumin Triglycerides Cholesterol Total LDL Cholesterol HDL Cholesterol TSH Free T4 03/28/17 03/28/17 03/28/17 05:00 05:00 05:00 WBC 4.2 D RBC 3.73 Hgb 9.0 L Hct 28.5 L MCV 76.4 L MCH 24.0 L MCHC 31.5 L RDW 19.7 H Plt Count 255 MPV 6.9 L Neutrophils % 84.4 H Lymphocytes % 9.8 D Monocytes % 5.7 D Eosinophils % 0.0 D Basophils % 0.1 Puncture Site ABG pH ABG pCO2 at Pt Temp ABG pO2 at Pt Temp ABG HCO3 ABG O2 Sat (Measured) ABG O2 Content ABG Base Excess Good Test Oxygen Flow Rate Vent Rate PEEP Pressure Support Vent Sodium 141 Potassium 3.6 Chloride 105 Carbon Dioxide 32 Anion Gap 4 L BUN 19 H D Creatinine 0.8 D Creat Clearance w eGFR > 60 POC Glucometer Random Glucose 155 H Hemoglobin A1c % Calcium 7.7 L Phosphorus 2.8 D Magnesium 2.1 Iron TIBC Iron Saturation Transferrin Ferritin Total Bilirubin 0.7 D AST 8 L D ALT 23 D Alkaline Phosphatase 93 D Total Protein 6.3 L Albumin 2.5 L Triglycerides 165 H Cholesterol 113 Total LDL Cholesterol 40 HDL Cholesterol 62 H TSH 0.10 L D Free T4 1.35 03/28/17 03/28/17 03/28/17 05:00 05:00 05:15 WBC RBC Hgb Hct MCV MCH MCHC RDW Plt Count MPV Neutrophils % Lymphocytes % Monocytes % Eosinophils % Basophils % Puncture Site ABG pH ABG pCO2 at Pt Temp ABG pO2 at Pt Temp ABG HCO3 ABG O2 Sat (Measured) ABG O2 Content ABG Base Excess Good Test Oxygen Flow Rate Vent Rate PEEP Pressure Support Vent Sodium Potassium Chloride Carbon Dioxide Anion Gap BUN Creatinine Creat Clearance w eGFR POC Glucometer 183.22884 Random Glucose Hemoglobin A1c % 6.2 H D Calcium Phosphorus Magnesium Iron TIBC Iron Saturation Transferrin Ferritin 16.942 Total Bilirubin AST ALT Alkaline Phosphatase Total Protein Albumin Triglycerides Cholesterol Total LDL Cholesterol HDL Cholesterol TSH Free T4 03/28/17 03/28/17 07:10 11:26 WBC RBC Hgb Hct MCV MCH MCHC RDW Plt Count MPV Neutrophils % Lymphocytes % Monocytes % Eosinophils % Basophils % Puncture Site Right radial ABG pH 7.46 H D ABG pCO2 at Pt Temp 44.7 D ABG pO2 at Pt Temp 93.0 ABG HCO3 31.5 H ABG O2 Sat (Measured) 98.1 ABG O2 Content 12.2 L ABG Base Excess 7.3 H Good Test Positive Oxygen Flow Rate 40 Vent Rate 30 PEEP 5.0 Pressure Support Vent 300 Sodium Potassium Chloride Carbon Dioxide Anion Gap BUN Creatinine Creat Clearance w eGFR POC Glucometer [phone] Random Glucose Hemoglobin A1c % Calcium Phosphorus Magnesium Iron TIBC Iron Saturation Transferrin Ferritin Total Bilirubin AST ALT Alkaline Phosphatase Total Protein Albumin Triglycerides Cholesterol Total LDL Cholesterol HDL Cholesterol TSH Free T4 Current Medications Generic Name Dose Route Start Last Admin Trade Name Freq PRN Reason Stop Dose Admin Albuterol Sulfate 1 amp 03/27/17 02:26 Ventolin 0.083% Nebulizer Soln - NEB Q4H PRN SHORT OF BREATH/WHEEZING Albuterol/Ipratropium 1 amp 03/28/17 12:14 03/28/17 09:30 Duoneb - NEB 1 amp Q6H PRN Administration SHORT OF BREATH/WHEEZING Amlodipine Besylate 10 mg 03/27/17 10:00 03/28/17 10:26 Norvasc - PO 10 mg DAILY [facility] Administration Carvedilol 12.5 mg 03/28/17 12:15 Coreg - PO BID [facility] Chlorhexidine Gluconate 1 applic 03/27/17 22:00 03/27/17 21:42 Hibiclens For Decolonization - TP 1 applic HS [facility] Administration Escitalopram Oxalate 20 mg 03/29/17 10:00 Lexapro - PO DAILY [facility] Ferrous Sulfate 325 mg 03/28/17 12:30 Feosol - PO DAILY [facility] Furosemide 40 mg 03/28/17 10:00 03/28/17 10:47 Lasix Injection - IVPUSH 40 mg DAILY [facility] Administration Heparin Sodium (Porcine) 5,000 unit 03/27/17 06:00 03/28/17 06:17 Heparin - SQ 5,000 unit TID [facility] Administration Insulin Aspart 1 vial 03/28/17 16:30 03/28/17 12:00 Novolog Vial Sliding Scale - SQ 2 units ACHS [facility] Administration Protocol Lisinopril 5 mg 03/28/17 12:30 Prinivil PO DAILY [facility] Methylprednisolone Sodium Succinate 40 mg 03/29/17 10:00 Solu-Medrol - IVPUSH 04/01/17 09:59 DAILY [facility] Mupirocin 1 applic 03/27/17 10:00 03/28/17 10:27 Bactroban Ointment (For Decolonization) - NS 04/01/17 09:59 1 applic BID [facility] Administration Olanzapine 10 mg 03/28/17 22:00 Zyprexa - PO HS [facility] Pantoprazole Sodium 40 mg 03/29/17 10:00 Protonix - PO DAILY [facility] Rosuvastatin Calcium 10 mg 03/27/17 10:00 03/28/17 10:26 Crestor - PO 10 mg DAILY [facility] Administration A/P: Cristela Gonzalez is a 61 year old female with pmhx of Schizophrenia/bipolar disorder , HTN, CKD (stage III-IV), COPD, CAD, DM, Hep C, who was admitted to the ICU for Respiratory failure secondary to COPD vs. CHF exacerbation. 1. Respiratory failure secondary to COPD vs. CHF - Respiratory failure is likely due to diastolic CHF> COPD - CXR showed early ARDS - Patient will be extubated today 2. Diastolic CHF - Patient is being diuresed with Lasix 40 mg IVPUSH BID - Output yesterday was -5.6L, today morning was -500 mL, lost 9 pounds since yesterday - Echo was done-echo showed aortic sclerosis, LV EF was 75%, normal LV size, normal LA size, likely a diastolic HF - Potassium was a little low today likely due to diuresis, will replete 3. COPD Exacerbation - Patient's pCO2 improved, currently at 44.7. PH is 7.46. HCO3 is 31.5 - As per Dr. Macario, respiratory distress less likely due to COPD exacerbation - Will taper steroids to BID, currently on Solu-medrol 60 mg IVPUSH TID ( changed from 40 mg BID) 4. Anemia - B12, Folate normal - Transferrin was 396, iron 20L, TIBC 450 - Iron pills PO 5. HTN - Amlodipine 10 mg PO daily - Hydralazine 50 mg PO TID 5. DM - ISS- Novolog 6. DVT Proph - Heparin 5000U SQ Dispo: If patient's O2 sat stays above 90%, can move to floors.
--- NOTE | 2017-03-28 13:07 | PN ---
Physical Exam: SUBJECTIVE: The patient is a 61F with a PMH of T2DM, HTn, CKD stage 3-4, CAD, schizophrenia, bipolar disorder, COPD, and tobacco use who presented to the ED with complaints of SOB which developed over 2 days. She was found to have worsening ABG's and lethargy and was intubated in the ICU at 0600 on 03/27/17. I placed the patient in CPAP mode this morning at 0845. She continued to improve and I extubated her. She remains on NC and satting well. She is comfortable and requesting food. OBJECTIVE: Vital Signs Period Temp Pulse Resp BP Sys/Osei Pulse Ox Last 24 Hr 96.9 F-9734 F 68-84 18-35 129-157/72-90 96-100 GENERAL: The patient is awake, alert, and fully oriented, in no acute distress. HEAD: Normal with no signs of trauma. EYES: PERRL, extraocular movements intact, sclera anicteric, conjunctiva clear. No ptosis. NECK: Trachea midline, full range of motion, supple. LUNGS: Breath sounds equal, clear to auscultation bilaterally, no wheezes, no crackles, no accessory muscle use. HEART: Regular rate and rhythm, S1, S2 without murmur, rub or gallop. ABDOMEN: Soft, nontender, nondistended, normoactive bowel sounds, no guarding, no rebound, no hepatosplenomegaly, no masses. EXTREMITIES: 2+ pulses, warm, well-perfused, no edema. NEUROLOGICAL: Cranial nerves II through XII grossly intact. Normal speech, gait not observed. PSYCH: Normal mood, normal affect. SKIN: Warm, dry, normal turgor, no rashes or lesions noted Laboratory Results - last 24 hr 03/27/17 03/27/17 03/27/17 12:00 12:38 15:52 WBC RBC Hgb Hct MCV MCH MCHC RDW Plt Count MPV Neutrophils % Lymphocytes % Monocytes % Eosinophils % Basophils % Puncture Site ABG pH ABG pCO2 at Pt Temp ABG pO2 at Pt Temp ABG HCO3 ABG O2 Sat (Measured) ABG O2 Content ABG Base Excess Good Test Oxygen Flow Rate Vent Rate PEEP Pressure Support Vent Sodium Potassium Chloride Carbon Dioxide Anion Gap BUN Creatinine Creat Clearance w eGFR POC Glucometer 171.59392 [phone] Random Glucose Hemoglobin A1c % Calcium Phosphorus Magnesium Iron 20 L TIBC 450 Iron Saturation 4 L Transferrin 396 H Ferritin Total Bilirubin AST ALT Alkaline Phosphatase Total Protein Albumin Triglycerides Cholesterol Total LDL Cholesterol HDL Cholesterol TSH Free T4 03/27/17 03/27/17 03/28/17 17:56 22:16 03:17 WBC RBC Hgb Hct MCV MCH MCHC RDW Plt Count MPV Neutrophils % Lymphocytes % Monocytes % Eosinophils % Basophils % Puncture Site ABG pH ABG pCO2 at Pt Temp ABG pO2 at Pt Temp ABG HCO3 ABG O2 Sat (Measured) ABG O2 Content ABG Base Excess Good Test Oxygen Flow Rate Vent Rate PEEP Pressure Support Vent Sodium Potassium Chloride Carbon Dioxide Anion Gap BUN Creatinine Creat Clearance w eGFR POC Glucometer [phone] 185.39773 Random Glucose Hemoglobin A1c % Calcium Phosphorus Magnesium Iron TIBC Iron Saturation Transferrin Ferritin Total Bilirubin AST ALT Alkaline Phosphatase Total Protein Albumin Triglycerides Cholesterol Total LDL Cholesterol HDL Cholesterol TSH Free T4 03/28/17 03/28/17 03/28/17 05:00 05:00 05:00 WBC 4.2 D RBC 3.73 Hgb 9.0 L Hct 28.5 L MCV 76.4 L MCH 24.0 L MCHC 31.5 L RDW 19.7 H Plt Count 255 MPV 6.9 L Neutrophils % 84.4 H Lymphocytes % 9.8 D Monocytes % 5.7 D Eosinophils % 0.0 D Basophils % 0.1 Puncture Site ABG pH ABG pCO2 at Pt Temp ABG pO2 at Pt Temp ABG HCO3 ABG O2 Sat (Measured) ABG O2 Content ABG Base Excess Good Test Oxygen Flow Rate Vent Rate PEEP Pressure Support Vent Sodium 141 Potassium 3.6 Chloride 105 Carbon Dioxide 32 Anion Gap 4 L BUN 19 H D Creatinine 0.8 D Creat Clearance w eGFR > 60 POC Glucometer Random Glucose 155 H Hemoglobin A1c % Calcium 7.7 L Phosphorus 2.8 D Magnesium 2.1 Iron TIBC Iron Saturation Transferrin Ferritin Total Bilirubin 0.7 D AST 8 L D ALT 23 D Alkaline Phosphatase 93 D Total Protein 6.3 L Albumin 2.5 L Triglycerides 165 H Cholesterol 113 Total LDL Cholesterol 40 HDL Cholesterol 62 H TSH 0.10 L D Free T4 1.35 03/28/17 03/28/17 03/28/17 05:00 05:00 05:15 WBC RBC Hgb Hct MCV MCH MCHC RDW Plt Count MPV Neutrophils % Lymphocytes % Monocytes % Eosinophils % Basophils % Puncture Site ABG pH ABG pCO2 at Pt Temp ABG pO2 at Pt Temp ABG HCO3 ABG O2 Sat (Measured) ABG O2 Content ABG Base Excess Good Test Oxygen Flow Rate Vent Rate PEEP Pressure Support Vent Sodium Potassium Chloride Carbon Dioxide Anion Gap BUN Creatinine Creat Clearance w eGFR POC Glucometer [phone] Random Glucose Hemoglobin A1c % 6.2 H D Calcium Phosphorus Magnesium Iron TIBC Iron Saturation Transferrin Ferritin 16.942 Total Bilirubin AST ALT Alkaline Phosphatase Total Protein Albumin Triglycerides Cholesterol Total LDL Cholesterol HDL Cholesterol TSH Free T4 03/28/17 03/28/17 07:10 11:26 WBC RBC Hgb Hct MCV MCH MCHC RDW Plt Count MPV Neutrophils % Lymphocytes % Monocytes % Eosinophils % Basophils % Puncture Site Right radial ABG pH 7.46 H D ABG pCO2 at Pt Temp 44.7 D ABG pO2 at Pt Temp 93.0 ABG HCO3 31.5 H ABG O2 Sat (Measured) 98.1 ABG O2 Content 12.2 L ABG Base Excess 7.3 H Good Test Positive Oxygen Flow Rate 40 Vent Rate 30 PEEP 5.0 Pressure Support Vent 300 Sodium Potassium Chloride Carbon Dioxide Anion Gap BUN Creatinine Creat Clearance w eGFR POC Glucometer [phone] Random Glucose Hemoglobin A1c % Calcium Phosphorus Magnesium Iron TIBC Iron Saturation Transferrin Ferritin Total Bilirubin AST ALT Alkaline Phosphatase Total Protein Albumin Triglycerides Cholesterol Total LDL Cholesterol HDL Cholesterol TSH Free T4 Active Medications Generic Name Dose Route Start Last Admin Trade Name Freq PRN Reason Stop Dose Admin Albuterol Sulfate 1 amp 03/27/17 02:26 Ventolin 0.083% Nebulizer Soln - NEB Q4H PRN SHORT OF BREATH/WHEEZING Albuterol/Ipratropium 1 amp 03/28/17 12:14 03/28/17 09:30 Duoneb - NEB 1 amp Q6H PRN Administration SHORT OF BREATH/WHEEZING Amlodipine Besylate 10 mg 03/27/17 10:00 03/28/17 10:26 Norvasc - PO 10 mg DAILY JOSLYN Administration Carvedilol 12.5 mg 03/28/17 12:15 Coreg - PO BID JOSLYN Chlorhexidine Gluconate 1 applic 03/27/17 22:00 03/27/17 21:42 Hibiclens For Decolonization - TP 1 applic HS JOSLYN Administration Escitalopram Oxalate 20 mg 03/29/17 10:00 Lexapro - PO DAILY JOSLYN Ferrous Sulfate 325 mg 03/28/17 12:30 Feosol - PO DAILY JOSLYN Furosemide 40 mg 03/28/17 10:00 03/28/17 10:47 Lasix Injection - IVPUSH 40 mg DAILY JOSLYN Administration Heparin Sodium (Porcine) 5,000 unit 03/27/17 06:00 03/28/17 06:17 Heparin - SQ 5,000 unit TID JOSLYN Administration Insulin Aspart 1 vial 03/28/17 16:30 03/28/17 12:00 Novolog Vial Sliding Scale - SQ 2 units ACHS JOSLYN Administration Protocol Lisinopril 5 mg 03/28/17 12:30 Prinivil PO DAILY JOSLYN Methylprednisolone Sodium Succinate 40 mg 03/29/17 10:00 Solu-Medrol - IVPUSH 04/01/17 09:59 DAILY JOSLYN Mupirocin 1 applic 03/27/17 10:00 03/28/17 10:27 Bactroban Ointment (For Decolonization) - NS 04/01/17 09:59 1 applic BID JOSLYN Administration Olanzapine 10 mg 03/28/17 22:00 Zyprexa - PO HS JOSLYN Pantoprazole Sodium 40 mg 03/29/17 10:00 Protonix - PO DAILY JOSLYN Rosuvastatin Calcium 10 mg 03/27/17 10:00 03/28/17 10:26 Crestor - PO 10 mg DAILY JOSLYN Administration ASSESSMENT/PLAN: The patient is a 61F with an extensive PMH who was found to have respiratory distress likely 2/2 to diastolic CHF and is extubated and comfortable. Neuro: - A&Ox3 - At baseline CV: CHF exacerbation, likely diastolic dysfunction - Patient's clinical status is improved - Lower extremity edema is much improved - BNP was found to be 1084, elevated from previous BNP (325) - Receiving Lasix IV 40mg qD for CHF and CXR showing pulmonary edema HTN and HLD - Norvasc 10 mg qD - Hydralazine 50mg PO TID - Crestor 10mg PO Pulm: COPD - Solumedrol 40mg IV BID - Lasix 40mg switched to qD - Duoneb QID Renal: CKD - BUN/Cr: 1.9/0.8, improving - Continue to monitor : - None GI: - Protonix 40mg PO qD ID: - None - Patient remains afebrile with no WBC count Hem/Onc: Anemia of unknown origin - Hemoccult negative - Currently 9.0 from 8.9 - Continue to trend Endocrine: T2DM - ISS - novolog MSK: - None PPX: - Heparin sq - Protonix FEN (Fluids, electrolytes, nutrition): - Soft diet Dispo: - Transfer to med/surg Visit type - Emergency Visit Emergency Visit: Yes ED Registration Date: 03/27/17 Care time: The patient presented to the Emergency Department on the above date and was hospitalized for further evaluation of their emergent condition. - New Patient This patient is new to me today: No - Critical Care Critical Care patient: Yes Total Critical Care Time (in minutes): 45 Critical Care Statement: The care of this patient involved high complexity decision making to prevent further life threatening deterioration of the patient 's condition and/or to evaluate & treat vital organ system(s) failure or risk of failure.
[2017-03-28] MEDS ORDERED: ALBUTEROL SO4 0.083% IH SOL 2.5 MG/3 ML VIAL.NEB. NEB PRN (13:28)
[2017-03-28] MEDS ORDERED: INSULIN SLIDING SCALE (NOVOLOG) 1 VIAL SQ SCH (16:30)
[2017-03-28] MEDS ORDERED: SODIUM CHLORIDE 250 ML with POTASSIUM CHLORIDE 20 MEQ IVPB ONE (16:30)
[2017-03-28] MEDS ORDERED: KCL 10 MEQ IVPB 10 MEQ/100 ML INFUS.BAG IVPB SCH (16:30)
[2017-03-28] MEDS ORDERED: POTASSIUM CHLORIDE TABS 20 MEQ TABLET.ER (FP) PO ONE (17:15)
[2017-03-28] MEDS ORDERED: POLYETHYLENE GLYCOL 3350 119 GM BTL PO ONE (20:00)
[2017-03-28] MEDS: CARVEDILOL 12.5 MG TABLET (FP) PO SCH (21:15)
[2017-03-28] MEDS ORDERED: ATORVASTATIN CA 40 MG TABLET (FP) PO SCH (22:00)
[2017-03-28] MEDS ORDERED: CHLORHEXIDINE GLUCONATE 4% CLEANSER FOR DECOLONIZATION TP SCH (22:00)
[2017-03-28] MEDS ORDERED: MUPIROCIN 2% TOPICAL OINTMENT FOR DECOLONIZATION NS SCH (22:00)
[2017-03-28] MEDS ORDERED: OLANZapine 10 MG TABLET PO SCH ×2 (22:00)
[2017-03-29] MEDS ORDERED: diphenhydrAMINE HCL 25 MG CAPSULE (FP) PO ONE (02:28)
[2017-03-29] MEDS: INSULIN SLIDING SCALE (NOVOLOG) 1 VIAL SQ SCH ×3 (06:39→16:51)
[2017-03-29] MEDS: HEPARIN NA (PORCINE) 5,000 UNITS/ML 1ML VIAL SQ SCH ×2 (06:39→14:16)
[2017-03-29] MEDS ORDERED: ALPRAZolam 0.25 MG TABLET PO PRN (06:52)
[2017-03-29 07:43] LABS: BASO % 0.1 % (0-2.0); EOS % 0.1 % (0-4.5); HEMATOCRIT 27.4 % (32.4-45.2); HEMOGLOBIN 8.2 GM/dL (10.7-15.3); LYMPH % 17.6 % (8-40); MCH 23.3 pg (25.7-33.7); MCHC 30.1 g/dl (32.0-36.0); MEAN CELL VOLUME 77.2 fl (80-96); MEAN PLT VOLUME 6.5 fl (7.5-11.1); MONO % 9.8 % (3.8-10.2); NEUT % 72.4 % (42.8-82.8); PLATELET COUNT 222 K/MM3 (134-434); RBC 3.55 M/mm3 (3.60-5.2); RDW 20.3 % (11.6-15.6); WHITE BLOOD COUNT 8.5 K/mm3 (4.0-10.0)
[2017-03-29 08:08] LABS: ALBUMIN 2.8 g/dl (3.4-5.0); ANION GAP 8 (8-16); BILIRUBIN,TOTAL 0.4 mg/dL (0.2-1.0); BLOOD UREA NITROGEN 26 mg/dL (7-18); CALCIUM 7.9 mg/dL (8.5-10.1); CHLORIDE 102 mmol/L (98-107); CO2 32 mmol/L (21-32); CREATININE 1.1 mg/dL (0.55-1.02); GLUCOSE,RANDOM 85 mg/dL (74-106); MAGNESIUM 2.1 mg/dL (1.8-2.4); PHOSPHOROUS 2.3 mg/dL (2.5-4.9); POTASSIUM 3.3 mmol/L (3.5-5.1); SGOT/AST 12 U/L (15-37); SGPT/ALT 24 U/L (12-78); SODIUM 142 mmol/L (136-145); TOT PROT 6.7 g/dl (6.4-8.2)
[2017-03-29 08:09] LABS: ALK PHOS 107 U/L (45-117)
[2017-03-29] MEDS ORDERED: POTASSIUM CHLORIDE TABS 20 MEQ TABLET.ER (FP) PO ONE ×2 (09:00→10:00)
[2017-03-29] MEDS ORDERED: methylPREDNISolone NA SUCC 40 MG/1 ML VIAL IVPUSH SCH ×2 (10:00)
[2017-03-29] MEDS ORDERED: FUROSEMIDE 40 MG/4 ML INJECTABLE VIAL IVPUSH SCH (10:00)
[2017-03-29] MEDS ORDERED: PANTOPRAZOLE 40 MG TABLET (FP) PO SCH ×2 (10:00)
[2017-03-29] MEDS ORDERED: amLODIPine BESYLATE 10 MG TABLET (FP) PO SCH (10:00)
[2017-03-29] MEDS ORDERED: ROSUVASTATIN CA 10 MG TABLET (FP) PO SCH (10:00)
[2017-03-29] MEDS ORDERED: ESCITALOPRAM OXALATE 20 MG TABLET (FP) PO SCH ×2 (10:00)
[2017-03-29] MEDS ORDERED: LISINOPRIL 5 MG TABLET (FP) PO SCH (10:00)
[2017-03-29] MEDS ORDERED: FERROUS SO4 325 MG TABLET (FP) PO SCH (10:00)
[2017-03-29] MEDS: CARVEDILOL 12.5 MG TABLET (FP) PO SCH (10:38)
--- NOTE | 2017-03-29 11:52 | MSN ---
Progress Note (short form) - Note Progress Note: Subjective: Cristela Gonzalez is a 61 yo F with pmhx of Schizophrenia, CKD, HTN, COPD, CAD, DM, and Hep C, who was BIBA for respiratory distress and was admitted for respiratory failure secondary to CHF vs. COPD. Patient states that today she is doing much better. Patient states she is able to breathe without O2 via nasal canula. Patient denies any SOB, chest pain, palpitations, dizziness or weakness. Patient states she is eating well. Patient states that since last night she has been experiencing some anxiety and is requesting Xanax. Objective: Last Vital Signs Temp Pulse Resp BP Pulse Ox 98.4 F 87 19 117/69 97 03/29/17 09:58 03/29/17 10:19 03/29/17 09:58 03/29/17 09:58 03/29/17 10:19 Physical Exam: General: Well-appearing, obese, in no acute distress Head: atraumatic, normocephalic Eyes: PERRLA, EOMI, no scleral icterus Heart: RRR without MRG Lungs: mild ronchi in the right lung posteriorly, otherwise clear Abdomen: Soft, non-tender, bowel sounds present and normoactive MSK: Extremities: pitting edema in the lower extremities bilaterally, improved from yesterday0 Laboratory Results - last 24 hr 03/28/17 03/28/17 03/29/17 16:32 21:24 06:35 WBC 8.5 D RBC 3.55 L Hgb 8.2 L Hct 27.4 L MCV 77.2 L MCH 23.3 L MCHC 30.1 L RDW 20.3 H Plt Count 222 MPV 6.5 L Neutrophils % 72.4 Lymphocytes % 17.6 D Monocytes % 9.8 Eosinophils % 0.1 D Basophils % 0.1 Sodium Potassium Chloride Carbon Dioxide Anion Gap BUN Creatinine Creat Clearance w eGFR POC Glucometer 132 123 Random Glucose Calcium Phosphorus Magnesium Total Bilirubin AST ALT Alkaline Phosphatase Total Protein Albumin 03/29/17 03/29/17 03/29/17 06:35 06:38 11:09 WBC RBC Hgb Hct MCV MCH MCHC RDW Plt Count MPV Neutrophils % Lymphocytes % Monocytes % Eosinophils % Basophils % Sodium 142 Potassium 3.3 L Chloride 102 Carbon Dioxide 32 Anion Gap 8 BUN 26 H D Creatinine 1.1 H D Creat Clearance w eGFR 50.33 POC Glucometer 98 118 Random Glucose 85 D Calcium 7.9 L Phosphorus 2.3 L Magnesium 2.1 Total Bilirubin 0.4 D AST 12 L D ALT 24 Alkaline Phosphatase 107 Total Protein 6.7 Albumin 2.8 L Home Medications Medication Instructions Recorded Escitalopram Oxalate [Lexapro -] 20 mg PO DAILY 09/14/15 Olanzapine [Zyprexa -] 10 mg PO BID 09/14/15 Aspirin Coated [Ecotrin -] 81 mg PO DAILY #30 tablet.ec 09/16/15 Amlodipine Besylate [Norvasc -] 10 mg PO DAILY 02/25/16 Carvedilol [Coreg -] 12.5 mg PO BID 02/25/16 Hydralazine HCl [Apresoline -] 50 mg PO TID 02/25/16 Albuterol Sulfate Inhaler - 2 inh PO Q4H PRN #1 inh 11/20/16 [Ventolin HFA Inhaler -] Prednisone [Deltasone -] 40 mg PO DAILY #8 tablet 03/20/17 Atorvastatin Ca [Lipitor] 40 mg PO DAILY #14 tablet 03/29/17 Ferrous Sulfate [Feosol] 325 mg PO DAILY #14 ud 03/29/17 Furosemide [Lasix] 40 mg PO DAILY #14 tablet 03/29/17 Lisinopril [Prinivil] 5 mg PO DAILY #14 tablet 03/29/17 A/P: Cristela Gonzalez is a 61 year old female with pmhx of Schizophrenia/bipolar disorder , HTN, CKD (stage III-IV), COPD, CAD, DM, Hep C, who was admitted to the ICU for Respiratory failure secondary to COPD vs. CHF exacerbation. 1. Respiratory failure secondary to COPD vs. CHF - Respiratory failure is likely due to diastolic CHF> COPD, spirometry showed no evidence of obstructive lung disease - CXR showed early ARDS, no resolved - Patient is extubated and on 2L of O2 via nasal canula, satting at 100% at rest , without O2 satting at 96-99% at rest - Pre and post test: Satting at 100% with 2L of O2 while ambulating, satting at 93% without O2 while ambulating - PT evaluation - If patient passes PT, can be discharged 2. Diastolic CHF - Patient is being diuresed with Lasix 40 mg IVPUSH BID, continue lasix 40 mg PO as per Dr. Heather, outpatient follow up with a mortar mixer operator - Output yesterday was -1250mL, today morning was -300 mL, lost 7 pounds since yesterday - Echo was done-echo showed aortic sclerosis, LV EF was 75%, normal LV size, normal LA size, likely a diastolic HF - Potassium was a little low today likely due to diuresis, will replete 3. COPD Exacerbation - Metabolic acidosis is now resolved - As per Dr. Macario, respiratory distress less likely due to COPD exacerbation due to normal spirometry - Steroids were tapered from Solu-medrol 60 mg IVPUSH TID to 40 mg daily, can discontinue solu-medrol and put patient back on prednisone 40 mg PO daily 4. Anemia - B12, Folate normal - Transferrin was 396, iron 20L, TIBC 450 - Iron pills PO 5. HTN - Continue home meds for HTN 5. DM - Continue home meds for DM 6. DVT Proph - Heparin 5000U SQ Dispo: If patient is able to walk 40 ft without respiratory distress, can discharge home with O2 if necessary. Follow up with a mortar mixer operator outpatient.
--- NOTE | 2017-03-29 11:52 | PN ---
Physical Exam: SUBJECTIVE: Patient seen and examined OBJECTIVE: Vital Signs Period Temp Pulse Resp BP Sys/Osei Pulse Ox Last 24 Hr 97.8 F-98.5 F 69-90 18-25 106-154/57-83 96-100 GENERAL: The patient is awake, alert, and fully oriented, in no acute distress. HEAD: Normal with no signs of trauma. EYES: PERRL, extraocular movements intact, sclera anicteric, conjunctiva clear. No ptosis. ENT: Ears normal, nares patent, oropharynx clear without exudates, moist mucous membranes. NECK: Trachea midline, full range of motion, supple. LUNGS: Breath sounds equal, clear to auscultation bilaterally, no wheezes, no crackles, no accessory muscle use. HEART: Regular rate and rhythm, S1, S2 without murmur, rub or gallop. ABDOMEN: Soft, nontender, nondistended, normoactive bowel sounds, no guarding, no rebound, no hepatosplenomegaly, no masses. EXTREMITIES: 2+ pulses, warm, well-perfused, no edema. NEUROLOGICAL: Cranial nerves II through XII grossly intact. Normal speech, gait not observed. PSYCH: Normal mood, normal affect. SKIN: Warm, dry, normal turgor, no rashes or lesions noted Laboratory Results - last 24 hr 03/28/17 03/28/17 03/28/17 11:26 16:32 21:24 WBC RBC Hgb Hct MCV MCH MCHC RDW Plt Count MPV Neutrophils % Lymphocytes % Monocytes % Eosinophils % Basophils % Sodium Potassium Chloride Carbon Dioxide Anion Gap BUN Creatinine Creat Clearance w eGFR POC Glucometer [phone] 123 Random Glucose Calcium Phosphorus Magnesium Total Bilirubin AST ALT Alkaline Phosphatase Total Protein Albumin 03/29/17 03/29/17 03/29/17 06:35 06:35 06:38 WBC 8.5 D RBC 3.55 L Hgb 8.2 L Hct 27.4 L MCV 77.2 L MCH 23.3 L MCHC 30.1 L RDW 20.3 H Plt Count 222 MPV 6.5 L Neutrophils % 72.4 Lymphocytes % 17.6 D Monocytes % 9.8 Eosinophils % 0.1 D Basophils % 0.1 Sodium 142 Potassium 3.3 L Chloride 102 Carbon Dioxide 32 Anion Gap 8 BUN 26 H D Creatinine 1.1 H D Creat Clearance w eGFR 50.33 POC Glucometer 98 Random Glucose 85 D Calcium 7.9 L Phosphorus 2.3 L Magnesium 2.1 Total Bilirubin 0.4 D AST 12 L D ALT 24 Alkaline Phosphatase 107 Total Protein 6.7 Albumin 2.8 L 03/29/17 11:09 WBC RBC Hgb Hct MCV MCH MCHC RDW Plt Count MPV Neutrophils % Lymphocytes % Monocytes % Eosinophils % Basophils % Sodium Potassium Chloride Carbon Dioxide Anion Gap BUN Creatinine Creat Clearance w eGFR POC Glucometer 118 Random Glucose Calcium Phosphorus Magnesium Total Bilirubin AST ALT Alkaline Phosphatase Total Protein Albumin Active Medications Generic Name Dose Route Start Last Admin Trade Name Freq PRN Reason Stop Dose Admin Albuterol Sulfate 1 amp 03/28/17 13:28 Ventolin 0.083% Nebulizer Soln - NEB Q4H PRN SHORT OF BREATH/WHEEZING Albuterol/Ipratropium 1 amp 03/28/17 13:28 03/28/17 23:20 Duoneb - NEB 1 amp Q6H PRN Administration SHORT OF BREATH/WHEEZING Alprazolam 0.5 mg 03/29/17 06:52 03/29/17 10:03 Xanax - PO 0.5 mg Q8H PRN Administration ANXIETY Amlodipine Besylate 10 mg 03/29/17 10:00 03/29/17 10:39 Norvasc - PO 10 mg DAILY JOSLYN Administration Atorvastatin Calcium 40 mg 03/28/17 22:00 03/28/17 21:15 Lipitor - PO 40 mg HS JOSLYN Administration Carvedilol 12.5 mg 03/28/17 22:00 03/29/17 10:38 Coreg - PO 12.5 mg BID JOSLYN Administration Chlorhexidine Gluconate 1 applic 03/28/17 22:00 03/28/17 21:16 Hibiclens For Decolonization - TP Not Given HS JOSLYN Escitalopram Oxalate 20 mg 03/29/17 10:00 03/29/17 10:40 Lexapro - PO 20 mg DAILY JOSLYN Administration Ferrous Sulfate 325 mg 03/29/17 10:00 03/29/17 10:39 Feosol - PO 325 mg DAILY JOSLYN Administration Furosemide 40 mg 03/29/17 10:00 03/29/17 10:39 Lasix Injection - IVPUSH 40 mg DAILY JOSLYN Administration Heparin Sodium (Porcine) 5,000 unit 03/28/17 14:00 12/06/17 06:39 Heparin - SQ 5,000 unit TID JOSLYN Administration Insulin Aspart 1 vial 03/28/17 16:30 03/29/17 11:41 Novolog Vial Sliding Scale - SQ Not Given ACHS [facility] Protocol Lisinopril 5 mg 03/29/17 10:00 03/29/17 10:39 Prinivil PO 5 mg DAILY JOSLYN Administration Methylprednisolone Sodium Succinate 40 mg 03/29/17 10:00 03/29/17 10:39 Solu-Medrol - IVPUSH 04/01/17 09:59 40 mg DAILY JOSLYN Administration Olanzapine 10 mg 03/28/17 22:00 03/28/17 21:22 Zyprexa - PO 10 mg HS JOSLYN Administration Pantoprazole Sodium 40 mg 03/29/17 10:00 03/29/17 10:39 Protonix - PO 40 mg DAILY JOSLYN Administration ASSESSMENT/PLAN:
--- NOTE | 2017-03-29 12:11 | PN ---
Teaching Attending Note Name of Resident: Raghu Gonzalez ATTENDING PHYSICIAN STATEMENT Time of evaluation: 10:30 AM I saw and evaluated the patient. I reviewed the resident's note and discussed the case with the resident. I agree with the resident's findings and plan as documented. SUBJECTIVE: Patient seen and examined. Feels much better, no dyspnea currently, no new complaints. Eager to go home. OBJECTIVE: Vital Signs Period Temp Pulse Resp BP Sys/Osei Pulse Ox Last 24 Hr 97.8 F-98.5 F 69-90 18-24 106-154/57-82 96-100 Intake & Output 03/26/17 03/27/17 03/28/17 03/29/17 23:59 23:59 23:59 23:59 Intake Total 438.4 1445.4 500 Output Total 6800 2700 300 Balance -6361.6 -1254.6 200 Weight 218 lb 258 lb 9 oz 247 lb 14.4 oz 240 lb 11.2 oz General: sitting in bed in no acute distress CVS:S1S2 regular Chest: markedly improved air entry, no rales or rhonchi appreciated Abdomen: soft, obese, NT extremities; improved pedal edema Home Medication List Medication Instructions Recorded Confirmed Type Escitalopram Oxalate [Lexapro -] 20 mg PO DAILY 09/14/15 03/28/17 History Olanzapine [Zyprexa -] 10 mg PO BID 09/14/15 03/28/17 History Amlodipine Besylate [Norvasc -] 10 mg PO DAILY 02/25/16 03/28/17 History Carvedilol [Coreg -] 12.5 mg PO BID 02/25/16 03/28/17 History Hydralazine HCl [Apresoline -] 50 mg PO TID 02/25/16 03/28/17 History Active Medications Generic Name Dose Route Start Last Admin Trade Name Freq PRN Reason Stop Dose Admin Albuterol Sulfate 1 amp 03/28/17 13:28 Ventolin 0.083% Nebulizer Soln - NEB Q4H PRN SHORT OF BREATH/WHEEZING Albuterol/Ipratropium 1 amp 03/28/17 13:28 03/28/17 23:20 Duoneb - NEB 1 amp Q6H PRN Administration SHORT OF BREATH/WHEEZING Alprazolam 0.5 mg 03/29/17 06:52 03/29/17 10:03 Xanax - PO 0.5 mg Q8H PRN Administration ANXIETY Amlodipine Besylate 10 mg 03/29/17 10:00 03/29/17 10:39 Norvasc - PO 10 mg DAILY JOSLYN Administration Atorvastatin Calcium 40 mg 03/28/17 22:00 03/28/17 21:15 Lipitor - PO 40 mg HS JOSLYN Administration Carvedilol 12.5 mg 03/28/17 22:00 03/29/17 10:38 Coreg - PO 12.5 mg BID JOSLYN Administration Chlorhexidine Gluconate 1 applic 03/28/17 22:00 03/28/17 21:16 Hibiclens For Decolonization - TP Not Given HS [facility] Escitalopram Oxalate 20 mg 03/29/17 10:00 03/29/17 10:40 Lexapro - PO 20 mg DAILY JOSLYN Administration Ferrous Sulfate 325 mg 03/29/17 10:00 03/29/17 10:39 Feosol - PO 325 mg DAILY JOSLYN Administration Furosemide 40 mg 03/29/17 10:00 03/29/17 10:39 Lasix Injection - IVPUSH 40 mg DAILY JOSLYN Administration Heparin Sodium (Porcine) 5,000 unit 03/28/17 14:00 03/29/17 06:39 Heparin - SQ 5,000 unit TID [facility] Administration Insulin Aspart 1 vial 03/28/17 16:30 03/29/17 11:41 Novolog Vial Sliding Scale - SQ Not Given [facility] Protocol Lisinopril 5 mg 03/29/17 10:00 03/29/17 10:39 Prinivil PO 5 mg DAILY JOSLYN Administration Methylprednisolone Sodium Succinate 40 mg 03/29/17 10:00 03/29/17 10:39 Solu-Medrol - IVPUSH 04/01/17 09:59 40 mg DAILY JOSLYN Administration Olanzapine 10 mg 03/28/17 22:00 03/28/17 21:22 Zyprexa - PO 10 mg HS JOSLYN Administration Pantoprazole Sodium 40 mg 03/29/17 10:00 03/29/17 10:39 Protonix - PO 40 mg DAILY JOSLYN Administration Laboratory Results - last 24 hr 03/28/17 03/28/17 03/28/17 11:26 16:32 21:24 WBC RBC Hgb Hct MCV MCH MCHC RDW Plt Count MPV Neutrophils % Lymphocytes % Monocytes % Eosinophils % Basophils % Sodium Potassium Chloride Carbon Dioxide Anion Gap BUN Creatinine Creat Clearance w eGFR POC Glucometer 176.59347 132 123 Random Glucose Calcium Phosphorus Magnesium Total Bilirubin AST ALT Alkaline Phosphatase Total Protein Albumin 03/29/17 03/29/17 03/29/17 06:35 06:35 06:38 WBC 8.5 D RBC 3.55 L Hgb 8.2 L Hct 27.4 L MCV 77.2 L MCH 23.3 L MCHC 30.1 L RDW 20.3 H Plt Count 222 MPV 6.5 L Neutrophils % 72.4 Lymphocytes % 17.6 D Monocytes % 9.8 Eosinophils % 0.1 D Basophils % 0.1 Sodium 142 Potassium 3.3 L Chloride 102 Carbon Dioxide 32 Anion Gap 8 BUN 26 H D Creatinine 1.1 H D Creat Clearance w eGFR 50.33 POC Glucometer 98 Random Glucose 85 D Calcium 7.9 L Phosphorus 2.3 L Magnesium 2.1 Total Bilirubin 0.4 D AST 12 L D ALT 24 Alkaline Phosphatase 107 Total Protein 6.7 Albumin 2.8 L 03/29/17 11:09 WBC RBC Hgb Hct MCV MCH MCHC RDW Plt Count MPV Neutrophils % Lymphocytes % Monocytes % Eosinophils % Basophils % Sodium Potassium Chloride Carbon Dioxide Anion Gap BUN Creatinine Creat Clearance w eGFR POC Glucometer 118 Random Glucose Calcium Phosphorus Magnesium Total Bilirubin AST ALT Alkaline Phosphatase Total Protein Albumin Microbiology 03/27/17 16:45 Rectal Swab VRE Culture - Final NO VREF ISOLATED 03/26/17 23:12 Blood - Peripheral Venous Blood Culture - Preliminary NO GROWTH OBTAINED AFTER 48 HOURS, INCUBATION TO CONTINUE FOR 3 DAYS. 03/26/17 23:12 Blood - Peripheral Venous Blood Culture - Preliminary NO GROWTH OBTAINED AFTER 48 HOURS, INCUBATION TO CONTINUE FOR 3 DAYS. 03/27/17 06:00 Sputum - Endotrachea Suction/Ventilator Gram Stain - Final 03/27/17 06:00 Sputum - Endotrachea Suction/Ventilator Sputum Culture - Preliminary NORMAL RESPIRATORY ALDA 03/27/17 06:00 Nares - Mrsa Screen - Right MRSA Screen - Final NO MRSA ISOLATED 03/27/17 06:00 Nares - Mrsa Screen - Left MRSA Screen - Final NO MRSA ISOLATED ASSESSMENT AND PLAN: 61 yof with morbid obesity, COPD, CKD ?stage III (Last creatinine in 11/2016 1.1) , bipolar, NIDDM admitted with acute hypoxic/hypercapneic respiratory failure likely combination of COPD exac with Diastolic Heart failure -Acute hypoxic/hypercapneic respiratory failure, on Bipap in ED, intubated on for lethargy and worsening ABG, extubated 03/28 -Acute COPD exacerbation, suspect mild component -Acute diastolic Heart failure exacerbation -Hypertension -NIDDM -Morbid obesity -?Undiagnosed DIRK, needs sleep study and pulmonary follow up outpatient -Bipolar disorder -?CKD stage III, last cr 11/2016 1.1 -Anemia, suspect from iron deficiency and anemia of chronic disease Plan: extubated, doing well, no oxygen needs. Change lasix to PO, Change prednisone to PO with rapid taper outpatient, confirm if patient on home prednisone. Hydralazine/Norvac/coreg ISS, diabetic diet Start PO iron supplementation Continue statin. COntinue olanzapine and lexapro. DVTPPX, Dispo plan for home dc with services later today pending PT eval Discussed with patient in detail, all questions answered.
[2017-03-29 14:02] VITALS: BP 114/62; PULSE 65; TEMP 97.7
--- NOTE | 2017-03-29 15:24 | PN ---
Progress Note, Physician History of Present Illness: Dyspnea resolved. - Current Medication List Current Medications: Active Medications Albuterol Sulfate (Ventolin 0.083% Nebulizer Soln -) 1 amp NEB Q4H PRN PRN Reason: SHORT OF BREATH/WHEEZING Albuterol/Ipratropium (Duoneb -) 1 amp NEB Q6H PRN PRN Reason: SHORT OF BREATH/WHEEZING Last Admin: 03/28/17 23:20 Dose: 1 amp Alprazolam (Xanax -) 0.5 mg PO Q8H PRN PRN Reason: ANXIETY Last Admin: 03/29/17 10:03 Dose: 0.5 mg Amlodipine Besylate (Norvasc -) 10 mg PO DAILY [facility] Last Admin: 03/29/17 10:39 Dose: 10 mg Atorvastatin Calcium (Lipitor -) 40 mg PO HS [facility] Last Admin: 03/28/17 21:15 Dose: 40 mg Carvedilol (Coreg -) 12.5 mg PO BID [facility] Last Admin: 03/29/17 10:38 Dose: 12.5 mg Chlorhexidine Gluconate (Hibiclens For Decolonization -) 1 applic TP HS [facility] Last Admin: 03/28/17 21:16 Dose: Not Given Escitalopram Oxalate (Lexapro -) 20 mg PO DAILY [facility] Last Admin: 03/29/17 10:40 Dose: 20 mg Ferrous Sulfate (Feosol -) 325 mg PO DAILY [facility] Last Admin: 03/29/17 10:39 Dose: 325 mg Furosemide (Lasix Injection -) 40 mg IVPUSH DAILY [facility] Last Admin: 03/29/17 10:39 Dose: 40 mg Heparin Sodium (Porcine) (Heparin -) 5,000 unit SQ TID [facility] Last Admin: 03/29/17 14:16 Dose: 5,000 unit Insulin Aspart (Novolog Vial Sliding Scale -) 1 vial SQ ACHS [facility] PRN Reason: Protocol Last Admin: 03/29/17 11:41 Dose: Not Given Lisinopril (Prinivil) 5 mg PO DAILY [facility] Last Admin: 03/29/17 10:39 Dose: 5 mg Methylprednisolone Sodium Succinate (Solu-Medrol -) 40 mg IVPUSH DAILY [facility] Stop: 04/01/17 09:59 Last Admin: 03/29/17 10:39 Dose: 40 mg Olanzapine (Zyprexa -) 10 mg PO HS [facility] Last Admin: 03/28/17 21:22 Dose: 10 mg Pantoprazole Sodium (Protonix -) 40 mg PO DAILY [facility] Last Admin: 03/29/17 10:39 Dose: 40 mg - Objective Vital Signs: Vital Signs Temperature 97.7 F 03/29/17 14:00 Pulse Rate 65 03/29/17 14:00 Respiratory Rate 19 03/29/17 09:58 Blood Pressure 114/62 03/29/17 14:00 O2 Sat by Pulse Oximetry (%) 97 03/29/17 10:19 Constitutional: Yes: No Distress, Calm Neck: Yes: Supple Cardiovascular: Yes: Regular Rate and Rhythm Respiratory: Yes: Regular, Diminished Gastrointestinal: Yes: Normal Bowel Sounds, Soft Edema: No Labs: CBC, BMP 03/29/17 06:35 03/29/17 06:35 INR, PTT INR 1.02 (0.82-1.09) 03/27/17 05:00 - ....Imaging Chest X-ray: Report Reviewed (NAD) Problem List - Problems (1) Acute on chronic diastolic (congestive) heart failure Code(s): I50.33 - ACUTE ON CHRONIC DIASTOLIC (CONGESTIVE) HEART FAILURE (2) Acute respiratory failure with hypoxia and hypercapnia Code(s): J96.01 - ACUTE RESPIRATORY FAILURE WITH HYPOXIA; J96.02 - ACUTE RESPIRATORY FAILURE WITH HYPERCAPNIA (3) CAD (coronary artery disease) Code(s): I25.10 - ATHSCL HEART DISEASE OF [place] CORONARY ARTERY W/O ANG PCTRS Qualifiers: Coronary Disease-Associated Artery/Lesion type: [place] artery [place] vs. transplanted heart: [place] heart Associated angina: without angina Qualified Code(s): I25.10 - Atherosclerotic heart disease of [place] coronary artery without angina pectoris (4) Hypertension Code(s): I10 - ESSENTIAL (PRIMARY) HYPERTENSION Qualifiers: Hypertension type: essential hypertension Qualified Code(s): I10 - Essential (primary) hypertension (5) COPD (chronic obstructive pulmonary disease) Code(s): J44.9 - CHRONIC OBSTRUCTIVE PULMONARY DISEASE, UNSPECIFIED Qualifiers: COPD type: unspecified COPD Qualified Code(s): J44.9 - Chronic obstructive pulmonary disease, unspecified (6) Chronic kidney insufficiency Code(s): N18.9 - CHRONIC KIDNEY DISEASE, UNSPECIFIED Qualifiers: Chronic kidney disease stage: unspecified stage Qualified Code(s): N18.9 - Chronic kidney disease, unspecified Assessment/Plan 1. Acute hypoxic/hypercapneic respiratory failure post extubation most likely related to 2. Acute on chronic class II [place] [employer] classification diastolic left ventricular congestive heart failure, resolved 3. Chronic obstructive pulmonary disease, exacerbation resolving 4. Probable CAD angina pectoris 5. Hypertensive cardiovascular disease 6. Diabetes mellitus 7. History of schizophrenia/bipolar disorder 8. CKD 9. Anemia 10. Exogenous obesity, OSAS suspect PLAN: 1. Continue Coreg 12.5 bid and titrate as needed and as tolerated 2. Prinivil 5 qd and titrate as needed and as tolerated 3. Change to oral diuretics with monitor diuretic response, renal fxn and electrolytes 4. Continue Norvasc 10 qd 5. Continue Lipitor 40 qhs 6. Patient will eventually require myocardial perfusion imaging study to assess severity of coronary artery disease, can be performed on outpatient basis 7. Bronchodilators, oral steroids taper and O2 as per pulmonary team, DVT and GI prophylaxis, PSG as outpatient
--- NOTE | 2017-03-29 16:03 | DS ---
Physical Exam: SUBJECTIVE: Patient seen and examined at bedside. Patient is breathing comfortably on room air. Denies any current complaints. OBJECTIVE: Vital Signs Period Temp Pulse Resp BP Sys/Osei Pulse Ox Last 24 Hr 97.7 F-98.4 F 65-90 18-22 106-142/57-82 96-100 PHYSICAL EXAM GENERAL: The patient is awake, alert, and fully oriented, in no acute distress. HEAD: Normal with no signs of trauma. LUNGS: Breath sounds equal, clear to auscultation bilaterally, no wheezes, no crackles, no accessory muscle use. Breathing on 2L nasal cannula, saturating at 93% on RA HEART: Regular rate and rhythm, S1, S2, systolic murmur noted on exam, rub or gallop. ABDOMEN: obese, soft, nontender, nondistended, normoactive bowel sounds, no guarding, no rebound, no hepatosplenomegaly, no masses. EXTREMITIES: 2+ pulses, warm, well-perfused, no edema. NEUROLOGICAL: Cranial nerves II through XII grossly intact. Normal speech, gait not observed. PSYCH: Normal mood, normal affect. SKIN: Warm, dry, normal turgor, no rashes or lesions noted LABS Laboratory Results - last 24 hr 03/28/17 03/28/17 03/29/17 16:32 21:24 06:35 WBC 8.5 D RBC 3.55 L Hgb 8.2 L Hct 27.4 L MCV 77.2 L MCH 23.3 L MCHC 30.1 L RDW 20.3 H Plt Count 222 MPV 6.5 L Neutrophils % 72.4 Lymphocytes % 17.6 D Monocytes % 9.8 Eosinophils % 0.1 D Basophils % 0.1 Sodium Potassium Chloride Carbon Dioxide Anion Gap BUN Creatinine Creat Clearance w eGFR POC Glucometer 132 123 Random Glucose Calcium Phosphorus Magnesium Total Bilirubin AST ALT Alkaline Phosphatase Total Protein Albumin 03/29/17 03/29/17 03/29/17 06:35 06:38 11:09 WBC RBC Hgb Hct MCV MCH MCHC RDW Plt Count MPV Neutrophils % Lymphocytes % Monocytes % Eosinophils % Basophils % Sodium 142 Potassium 3.3 L Chloride 102 Carbon Dioxide 32 Anion Gap 8 BUN 26 H D Creatinine 1.1 H D Creat Clearance w eGFR 50.33 POC Glucometer 98 118 Random Glucose 85 D Calcium 7.9 L Phosphorus 2.3 L Magnesium 2.1 Total Bilirubin 0.4 D AST 12 L D ALT 24 Alkaline Phosphatase 107 Total Protein 6.7 Albumin 2.8 L HOSPITAL COURSE: Date of Admission:03/27/17 61 year old female with a past medical history of HTN, CAD, diabetes, Hep C, CKD stage III-IV, COPD, bipolar/schizophrenia admitted to the hospital for acute hypercapnic respiratory failure secondary to CHF and COPD exacerbation due to medication non-compliance (Patient was found to be in hypercapnic respiratory failure and put on Bipap overnight in the ICU. It was not improving her respiratory status and patient was intubated in the ICU and mechanical ventilation was begun. She was intubated for 1 day and treated with IV steroids and furosemide due to fluid overload. Patient improved in 24 hours an was able to be extubated and moved to the floors. Patient improved rapidly and was able to be discharged with instructions to follow with her primary care physician, rn pediatric icu, and rope tier on a steroid taper. Date of Discharge: 03/29/17 Minutes to complete discharge: 30 Discharge Summary Reason For Visit: EDEMA OF LOWER EXTREMIY,DIABETES MELLITUS Current Active Problems Acute respiratory failure with hypoxia and hypercapnia (Acute) Bipolar disorder (Acute) CAD (coronary artery disease) (Acute) CHF (congestive heart failure) (Acute) Endotracheally intubated (Acute) Hypertension (Acute) Schizophrenia (Acute) Condition: Stable - Instructions Diet, Activity, Other Instructions: You were treated in the hospital for acute respiratory failure. You needed to be intubated during this hospitalization stay in order to assist your breathing. Medical Recommendations: 1. Make an appointment to see your rope tier Dr. Johnny Romero within 2 weeks of discharge 2. Make an appointment to see your primary care physician within 1 week of discharge. If you don't have a primary care physician, please make an appointment with me within 1 week: Dr. aRghu Gonzalez D.O. [address] [place] [address] 3. Make an appointment with the rn pediatric icu Dr. Joaquin within 2 weeks of discharge. 4. check your weights daily and notify doctor if weight gain > 3 lbs in 2 days. Also notify your doctor if you feel dizziness or decreased urination or new concerns. 5. Advise that your potassium level be monitored with your doctor while on lasix. chem-7 (blood test for kidneys and potassium level) in 1 week with your doctor. Medicines to Take at Home -Continue your home dose of prednisone on a tapering dose: 1. Prednisone 40mg by mouth for 2 days 2. Prednisone 30mg by mouth for 2 days 3. Prednisone 20mg by mouth for 2 days 4. Prednisone 10mg by mouth for 2 days 5. Stop taking the prednisone -Continue Lasix 40mg by mouth once a day, which will help you remove excess fluid from your legs and lungs. You need to follow with the rope tier for recommendations about continuing this medication. -Continue your home rosuvastatin -Continue Lisinopril 5mg once a day If you experience shortness of breath, please return to the emergency room immediately. Referrals: Kan Joaquin MD [Staff Physician] - Johnny Romero MD [Staff Physician] - Disposition: HOME - Home Medications Comprehensive Discharge Medication List: Ambulatory Orders Escitalopram Oxalate [Lexapro -] 20 mg PO DAILY 09/14/15 Olanzapine [Zyprexa -] 10 mg PO BID 09/14/15 Aspirin Coated [Ecotrin -] 81 mg PO DAILY #30 tablet.ec 09/16/15 Amlodipine Besylate [Norvasc -] 10 mg PO DAILY 02/25/16 Carvedilol [Coreg -] 12.5 mg PO BID 02/25/16 Hydralazine HCl [Apresoline -] 50 mg PO TID 02/25/16 Albuterol Sulfate Inhaler - [Ventolin HFA Inhaler -] 2 inh PO Q4H PRN #1 inh Atorvastatin Ca [Lipitor] 40 mg PO DAILY #14 tablet 03/29/17 Ferrous Sulfate [Feosol] 325 mg PO DAILY #14 ud 03/29/17 Furosemide [Lasix] 40 mg PO DAILY #14 tablet 03/29/17 Lisinopril [Prinivil] 5 mg PO DAILY #14 tablet 03/29/17 Miscellaneous Drug Not in Syst 0 each DAILY #1 each 03/29/17 Miscellaneous Drug Not in Syst [Oral Use Only Aux Label] 0 each DAILY #1 each 03/29/17 Prednisone See Taper PO DAILY #20 tablet 03/29/17 This patient is new to me today: No Emergency Visit: No Critical Care patient: No - Discharge Referral Referred to [facility] No
[2017-03-29] MEDS ORDERED: INSULIN (NOVOLOG) ASPART 100 UNITS/ML 10ML VIAL ONE (16:29)
== END 2017-03-29 17:11 | disposition home or self-care (01) | DRG 133 ==
LOC: JER 22:13 → JERBED 03-27 02:14 → JICU 03-27 03:46 → J5S 03-28 15:44
PROVIDERS: ADMIT Internal Medicine; ATTEND Hospitalist
PROC: 5A1945Z Respiratory Ventilation, 24-96 Consecutive Hours (ICD-10-PCS; principal; 2017-03-27)
PROC: 0BH17EZ Insertion of Endotracheal Airway into Trachea, Via Natural or Artificial Opening (ICD-10-PCS; 2017-03-27)
DX: J96.02 Acute respiratory failure with hypercapnia (principal); E66.01 Morbid (severe) obesity due to excess calories; I13.0 Hypertensive heart and chronic kidney disease with heart failure and stage 1 through stage 4 chronic kidney disease, or unspecified chronic kidney disease; I25.10 Atherosclerotic heart disease of native coronary artery without angina pectoris; F17.210 Nicotine dependence, cigarettes, uncomplicated; F31.9 Bipolar disorder, unspecified; D50.9 Iron deficiency anemia, unspecified; Z68.42 Body mass index [BMI] 45.0-49.9, adult; I50.33 Acute on chronic diastolic (congestive) heart failure; J44.1 Chronic obstructive pulmonary disease with (acute) exacerbation; J96.01 Acute respiratory failure with hypoxia; E11.22 Type 2 diabetes mellitus with diabetic chronic kidney disease; N18.4 Chronic kidney disease, stage 4 (severe); E87.70 Fluid overload, unspecified; J98.11 Atelectasis; R41.82 Altered mental status, unspecified; Z91.14 Patient's other noncompliance with medication regimen
CPT/HCPCS: 31500; 36415; 36600; 71010-TC; 80053; 80061; 80307; 81003; 82272; 82375; 82550; 82607; 82728; 82746; 82803; 83036; 83050; 83540; 83550; 83605; 83721; 83735; 83880; 84100; 84439; 84443; 84466; 84481; 84484; 85025; 85610; 86850; 86900; 86901; 87040; 87070; 87081; 87205; 87804; 87899; 90688; 90732; 93005; 93010; 93306-TC; 94002; 94640; 94761; 97116-GP; 97161-GP; 99283-25; G0008; G0009; J1644

== ENCOUNTER 2017-03-31 14:22 | Inpatient (IN) | payer OTHER ==
--- NOTE | 2017-03-31 14:33 | PDOC ---
History of Present Illness - General History Source: EMS, Other Exam Limitations: Clinical Condition, Other - History of Present Illness Initial Comments: 03/31/17 16:33 The patient is a 61 year old female, with a significant past medical history of hypertension, hyperlipidemia, diabetes, COPD, hepatitis C, chronic renal insufficiency, schizophrenia/bipolar disorder, who presents to the emergency department BIBA s/p being found on the ground by deputy building guard earlier today. Per EMS, patients friend had not seen her for 2 days and grew worried about patients whereabouts. EMS reports deputy building guard went to check on the patient and found the patient on the ground blocking the entrance to her apartment. When EMS arrived on scene, patient was found to be on the floor for an unknown period of time in a pool of urine. EMS also states they noted patient had left her oven door open. During transport, EMS reports patients blood glucose was 118, and was satting at 84% on arrival. She was put on CPAP and transported to the ED. Patients history is limited do to clinical condition. Pt was recently admitted last week to the ICU for resp failure requiring intubation. Allergies: Penicillins, Ibuprofen, Metformin Past Surgical History: Hysterectomy Social History: Current everyday smoker. No ETOH or recreational drug use PCP: Dr. Moses([place]) <Lucero Sutherland - Last Filed: 03/31/17 16:38> <Tono Molina - Last Filed: 03/31/17 17:50> - General Stated Complaint: DIFFICULTY BREATHING Time Seen by Provider: 03/31/17 14:26 Past History <Lucero Sutherland - Last Filed: 03/31/17 16:38> - Past Medical History Anemia: No Asthma: No Cancer: No Cardiac Disorders: Yes CVA: Yes COPD: Yes CHF: No Dementia: No Diabetes: Yes GI Disorders: No Disorders: No HTN: Yes Hypercholesterolemia: Yes Liver Disease: Yes (HEPATITIS C.) Psychiatric Problems: Yes Seizures: No Thyroid Disease: (chronic renaL INSUFF) - Surgical History Abdominal Surgery: Yes Appendectomy: No Cardiac Surgery: No Cholecystectomy: No Lung Surgery: No Neurologic Surgery: No Orthopedic Surgery: No - Suicide/Smoking/Psychosocial Hx Smoking History: Current every day smoker Have you smoked in the past 12 months: Yes Number of Cigarettes Smoked Daily: 4 'Breaking Loose' booklet given: 02/25/16 Hx Alcohol Use: No Drug/Substance Use Hx: No Substance Use Type: Alcohol Hx Substance Use Treatment: No <Tono Molina - Last Filed: 03/31/17 17:50> - Past Medical History Allergies/Adverse Reactions: Allergies Allergy/AdvReac Type Severity Reaction Status Date / Time ibuprofen [From Motrin IB] Allergy Verified 03/20/17 12:51 metformin Allergy Verified 03/20/17 12:51 Penicillins Allergy Verified 03/20/17 12:51 Home Medications: Ambulatory Orders Escitalopram Oxalate [Lexapro -] 20 mg PO DAILY 09/14/15 Olanzapine [Zyprexa -] 10 mg PO BID 09/14/15 Aspirin Coated [Ecotrin -] 81 mg PO DAILY #30 tablet.ec 09/16/15 Amlodipine Besylate [Norvasc -] 10 mg PO DAILY 02/25/16 Carvedilol [Coreg -] 12.5 mg PO BID 02/25/16 Hydralazine HCl [Apresoline -] 50 mg PO TID 02/25/16 Albuterol Sulfate Inhaler - [Ventolin HFA Inhaler -] 2 inh PO Q4H PRN #1 inh Ferrous Sulfate [Feosol] 325 mg PO DAILY #14 ud 03/29/17 Furosemide [Lasix] 40 mg PO DAILY #14 tablet 03/29/17 Lisinopril [Prinivil] 5 mg PO DAILY #14 tablet 03/29/17 Miscellaneous Drug Not in Syst 0 each DAILY #1 each 03/29/17 Miscellaneous Drug Not in Syst [Oral Use Only Aux Label] 0 each DAILY #1 each 03/29/17 Prednisone See Taper PO DAILY #20 tablet 03/29/17 Rosuvastatin [Crestor -] 10 mg PO DAILY #14 tablet 03/29/17 Review of Systems - Review of Systems Able to Perform ROS?: No Comments:: 03/31/17 16:33 Unable to obtain due to clinical condition. <Lucero Sutherland - Last Filed: 03/31/17 16:38> *Physical Exam - Vital Signs Last Vital Signs Temp Pulse Resp BP Pulse Ox 96.6 F L 78 22 165/100 98 03/31/17 15:49 03/31/17 16:04 03/31/17 16:04 03/31/17 16:04 03/31/17 16:04 - Physical Exam Comments: 03/31/17 16:34 GENERAL: Awake and alert, Oriented to person and place HEAD: No signs of trauma EYES: PERRLA NECK: Normal ROM, supple, no lymphadenopathy, JVD, or masses LUNGS: Diffuse wheezing left worse than right. Bilateral rales at the bases. Moderate air movement. No crackles HEART: Regular rate and rhythm, normal S1 and S2, no murmurs, rubs or gallops ABDOMEN: Soft, nontender, normoactive bowel sounds. No guarding, no rebound. No masses EXTREMITIES: Normal range of motion, no edema. No clubbing or cyanosis. No cords, erythema, or tenderness BACK: No midline spinal tenderness in cervical/thoracic/lumbar region NEUROLOGICAL: slurred speech (pt has hx of), cranial nerves intact, negative pronator drift, 5/5 strength in all 4 extremities, normal sensation to light touch in all 4 extremities, normal cerebellar exam, normal reflexes and tone SKIN: bruising to R thoracic area <Sutherland,Giomilsy - Last Filed: 03/31/17 16:38> ED Treatment Course - LABORATORY CBC & Chemistry Diagram: 03/31/17 14:55 03/31/17 14:55 - ADDITIONAL ORDERS Additional order review: Laboratory Results 03/31/17 03/31/17 03/31/17 14:55 14:55 14:55 PTT (Actin FS) ABG pH 7.36 ABG pCO2 at Pt Temp 57.2 H D ABG pO2 at Pt Temp 251.0 H* ABG HCO3 31.3 H ABG O2 Sat (Measured) 99.9 H* ABG O2 Content 13.4 L ABG Base Excess 5.3 H Carboxyhemoglobin 3.2 H Sodium Potassium Chloride Carbon Dioxide Anion Gap BUN Creatinine Creat Clearance w eGFR Random Glucose Lactic Acid 0.4 Calcium Magnesium Total Bilirubin AST ALT Alkaline Phosphatase Creatine Kinase Cancelled Troponin I B-Natriuretic Peptide Total Protein Albumin 03/31/17 03/31/17 03/31/17 14:55 14:55 14:55 PTT (Actin FS) 30.5 ABG pH ABG pCO2 at Pt Temp ABG pO2 at Pt Temp ABG HCO3 ABG O2 Sat (Measured) ABG O2 Content ABG Base Excess Carboxyhemoglobin Sodium 143 142 Potassium 3.5 3.5 Chloride 107 107 Carbon Dioxide 31 31 Anion Gap 5 L 4 L BUN 26 H 25 H Creatinine 1.1 H 1.1 H Creat Clearance w eGFR 50.33 50.33 Random Glucose 104 106 D Lactic Acid Calcium 8.2 L 8.2 L Magnesium 2.1 2.0 Total Bilirubin 0.4 0.4 AST 22 23 D ALT 34 34 D Alkaline Phosphatase 136 H 134 H D Creatine Kinase 56 54 Troponin I < 0.02 < 0.02 B-Natriuretic Peptide 585.24 H Total Protein 7.7 7.7 Albumin 3.3 L 3.3 L 03/31/17 14:55 RBC 4.02 MCV 76.9 L MCHC 30.3 L RDW 19.9 H MPV 6.8 L Neutrophils % 58.7 Lymphocytes % 27.4 D Monocytes % 12.4 H Eosinophils % 0.9 D Basophils % 0.6 D - RADIOLOGY Radiograph Interpretation: 03/31/17 16:38 EXAM: CXR INTERPRETED BY: Dr. Vuong REVIEWED BY: Dr. Molina IMPRESSION: There is motion, patient rotation and shallow inspiration with low lung volumes, limiting evaluation. There is no definite consolidation. There is subsegmental atelectasis in both lung bases. There is no definable pneumothorax. There is no sizable pleural effusion. Stable enlargement of the cardiomediastinal silhouette. Limited examination as above. Bibasilar subsegmental atelectasis. Stable enlargement of the cardiomediastinal silhouette. - Medications Given in the ED: ED Medications Discontinued Medications Generic Name Dose Route Start Last Admin Trade Name Freq PRN Reason Stop Dose Admin Albuterol/Ipratropium 1 amp 03/31/17 14:45 03/31/17 15:48 Duoneb - NEB 03/31/17 15:16 1 amp Q15M JOSLYN Administration Methylprednisolone Sodium Succinate 125 mg 03/31/17 14:41 03/31/17 15:48 Solu-Medrol - IVPB 03/31/17 14:42 125 mg ONCE ONE Administration Nitroglycerin 1 inch 03/31/17 14:44 03/31/17 15:48 Nitro-Bid 2% Paste - TD 03/31/17 14:45 1 inch ONCE ONE Administration <Sutherland,Giomilsy - Last Filed: 03/31/17 16:38> - LABORATORY CBC & Chemistry Diagram: 03/31/17 14:55 03/31/17 14:55 - RADIOLOGY Radiology Studies Ordered: Category Date Time Status CERVICAL SPINE CT W/O CONTR [CT] Stat CT Scan 03/31/17 14:[address] WITHOUT CONTRAST [CT] Stat CT Scan 03/31/17 14:29 Ordered CHEST X-RAY PORTABLE* [RAD] Stat Radiology 03/31/17 14:31 Ordered DUPLEX VASCUL US-2LEGS [US] Stat Ultrasound 03/31/17 14:31 Ordered <Tono Molina - Last Filed: 03/31/17 17:50> Medical Decision Making - Critical Care Time Total Critical Care Time (minutes): 45 Critical Care Statement: The care of this patient involved high complexity decision making to prevent further life threatening deterioration of the patient 's condition and/or to evaluate & treat vital organ system(s) failure or risk of failure. - Medical Decision Making 03/31/17 15:50 61-year-old female with multiple medical problems is brought in by EMS after she was found down for an unknown period of time at home. Per EMS the patient was hypoxic to 84% on arrival, in the ED is satting 100% on BiPAP. Exam is remarkable for mildly diminished breath sounds and diffuse wheezing. Differential is wide and includes COPD exacerbation versus CHF versus ACS. Will treat COPD with nebs and steroids. Given the unknown down time and unknown mechanism of falling Will get a CT head and C-spine to evaluate for head/neck trauma. Will check CPK to rule out rhabdo. Likely admit ICU. 03/31/17 17:48 Labs including trop, BNP, CPK unremarkable. CXR stable. Likely COPD exacerbation. Patient titrated down on BiPAP from 100% to 40%. O2 sat at that point decreased to the low 90s. Increased FiO2 to 50. Case discussed with ICU, the patient was accepted to the ICU by Dr. Garcia. Discussed case with the admitting hospitalist Dr. Wahl Case discussed in detail with admitting physician including history, physical exam and ancillary studies. Admitting physician has assumed care for the patient, will follow all pending diagnostics and will complete the evaluation and treatment. <Tono Molina - Last Filed: 03/31/17 17:50> *DC/Admit/Observation/Transfer - Attestations Scribe Attestion: 03/31/17 16:35 Documentation prepared by Lucero Sutherland, acting as medical coding manager for Tono Molina MD. <Lucero Sutherland - Last Filed: 03/31/17 16:38> - Discharge Dispostion Admit: Yes - Attestations Physician Attestion: 03/31/17 17:50 I, Dr. Tono Molina MD, attest that this document has been prepared under my direction and personally reviewed by me in its entirety. I further attest, that it accurately reflects all work, treatment, procedures and medical decision -making performed by me. <Tono Molina - Last Filed: 03/31/17 17:50> Diagnosis at time of Disposition: COPD exacerbation - Discharge Dispostion Condition at time of disposition: Stable
[2017-03-31] MEDS ORDERED: methylPREDNISolone NA SUCC 125 MG/2 ML VIAL IVPB ONE (14:41)
[2017-03-31] MEDS ORDERED: NITROGLYCERIN 2% OINTMENT - 1GM PACKET TD ONE ×2 (14:44→15:43)
[2017-03-31] MEDS ORDERED: ALBUTEROL SO4 2.5/IPRATROPIUM 0.5 INH SOL 3 ML VIAL.NEB. NEB ONE ×2 (14:51→15:43)
[2017-03-31 14:53] LABS: ARTERIAL BLD GAS O2 SATURATION 99.9 % (90-98.9); ARTERIAL BLOOD GAS BASE EXCESS 5.3 meq/l (-2-2); ARTERIAL BLOOD GAS HCO3 31.3 meq/L (22-26); ARTERIAL BLOOD GAS pH 7.36 (7.35-7.45)
[2017-03-31 15:03] LABS: BASOPHIL 0.6 % (0-2.0); EOSINOPHIL 0.9 % (0-4.5); MCH 23.3 pg (25.7-33.7); MCHC 30.3 g/dl (32.0-36.0); MEAN CELL VOLUME 76.9 fl (80-96); MEAN PLT VOLUME 6.8 fl (7.5-11.1); NEUTROPHILS 58.7 % (42.8-82.8); PLATELET COUNT 208 K/MM3 (134-434); RDW 19.9 % (11.6-15.6); WHITE BLOOD COUNT 6.4 K/mm3 (4.0-10.0)
[2017-03-31 15:25] LABS: ALBUMIN 3.3 g/dl (3.4-5.0); ALK PHOS 136 U/L (45-117); ANION GAP 4 (8-16); ANION GAP 5 (8-16); BILIRUBIN,TOTAL 0.4 mg/dL (0.2-1.0); CALCIUM 8.2 mg/dL (8.5-10.1); CO2 31 mmol/L (21-32); CPK 56 IU/L (26-192); CREATININE 1.1 mg/dL (0.55-1.02); GLUCOSE,RANDOM 104 mg/dL (74-106); GLUCOSE,RANDOM 106 mg/dL (74-106); MAGNESIUM 2.1 mg/dL (1.8-2.4); SGOT/AST 22 U/L (15-37); SGOT/AST 23 U/L (15-37); TOT PROT 7.7 g/dl (6.4-8.2)
[2017-03-31] MEDS: ALBUTEROL SO4 2.5/IPRATROPIUM 0.5 INH SOL 3 ML VIAL.NEB. NEB SCH ×2 (15:41→15:48)
[2017-03-31] MEDS ORDERED: methylPREDNISolone NA SUCC 125 MG/2 ML VIAL ONE ×2 (15:43→20:54)
[2017-03-31 16:09] LABS: ALK PHOS 134 U/L (45-117); BILIRUBIN,TOTAL 0.4 mg/dL (0.2-1.0); CPK 54 IU/L (26-192); SGPT/ALT 34 U/L (12-78); TOT PROT 7.7 g/dl (6.4-8.2)
[2017-03-31 16:10] LABS: TROPONIN I < 0.02 ng/ml (0.00-0.05)
[2017-03-31 16:11] LABS: TROPONIN I < 0.02 ng/ml (0.00-0.05)
--- NOTE | 2017-03-31 18:14 | HP ---
CHIEF COMPLAINT: Respiratory Distress PCP: Dr. Nora Moses HISTORY OF PRESENT ILLNESS: Unable to obtain information from patient due to medical condition. All information obtained from ED staff and records. Patient is a 61 year old female with a PMHx of COPD, HTN, Diastolic CHF HLD, NIDDMII, CKD, Hepatitis C, schizophrenia/bipolar disorder who was BIBEMS after her neighbors noticed they did not see her in a few days. When they broke down the door patient was found on the floor covered in urine with alteed mental status. When patient arrived to the ED she was found to have respiratory failure with a saturation of 84% on room air and placed on CPAP. Patient otherwise unable to provide any information due to medical condition ER course was notable for: (1)ABG revealed hypercarbia (2)Placed on BIPAP (3) Lasix IV, Narcan, and Solumedrol given Recent Travel: unable to obtain PAST MEDICAL HISTORY: COPD dependent on 2L 02, HTN, Diastolic CHF HLD, NIDDMII, CKD, Hepatitis C, schizophrenia/bipolar disorder PAST SURGICAL HISTORY: Unable to obtain Social History: Unable to obtain Family History: Unable to Obtain Allergies ibuprofen [From Motrin IB] Allergy (Verified 03/20/17 12:51) metformin Allergy (Verified 03/20/17 12:51) Penicillins Allergy (Verified 03/20/17 12:51) HOME MEDICATIONS: Home Medications Medication Instructions Recorded Escitalopram Oxalate [Lexapro -] 20 mg PO DAILY 09/14/15 Olanzapine [Zyprexa -] 10 mg PO BID 09/14/15 Aspirin Coated [Ecotrin -] 81 mg PO DAILY #30 tablet.ec 09/16/15 Amlodipine Besylate [Norvasc -] 10 mg PO DAILY 02/25/16 Carvedilol [Coreg -] 12.5 mg PO BID 02/25/16 Hydralazine HCl [Apresoline -] 50 mg PO TID 02/25/16 Albuterol Sulfate Inhaler - 2 inh PO Q4H PRN #1 inh 11/20/16 [Ventolin HFA Inhaler -] Ferrous Sulfate [Feosol] 325 mg PO DAILY #14 ud 03/29/17 Furosemide [Lasix] 40 mg PO DAILY #14 tablet 03/29/17 Lisinopril [Prinivil] 5 mg PO DAILY #14 tablet 03/29/17 Miscellaneous Drug Not in Syst 0 each DAILY #1 each 03/29/17 Miscellaneous Drug Not in Syst 0 each DAILY #1 each 03/29/17 [Oral Use Only Aux Label] Prednisone See Taper PO DAILY #20 tablet 03/29/17 Rosuvastatin [Crestor -] 10 mg PO DAILY #14 tablet 03/29/17 REVIEW OF SYSTEMS Unable to Obtain PHYSICAL EXAMINATION Vital Signs - 24 hr 03/31/17 03/31/17 03/31/17 14:45 15:49 15:59 Temperature 96.6 F L Pulse Rate 82 Pulse Rate [ Left Radial] Respiratory 24 Rate Blood Pressure 178/120 Blood Pressure [Right Arm] O2 Sat by Pulse 100 99 99 Oximetry (%) 03/31/17 03/31/17 03/31/17 16:04 16:52 18:03 Temperature Pulse Rate Pulse Rate [ 78 70 Left Radial] Respiratory 22 20 Rate Blood Pressure Blood Pressure 165/100 159/100 [Right Arm] O2 Sat by Pulse 98 100 99 Oximetry (%) GENERAL: Unresponsive to verbal commands, lethargic. On BIPAP HEAD: Normal with no signs of trauma. EYES: Pupils equal, round and reactive to light, extraocular movements intact, sclera anicteric, conjunctiva clear. NECK:(-) lymphadenopathy, JVD, or masses. LUNGS: Bibasilar crackles throughout lung bases. On BIPAP HEART: Regular rate and rhythm, normal S1 and S2 without murmur, rub or gallop. ABDOMEN: Soft, obese, nontender, not distended, normoactive bowel sounds, no guarding, no rebound, no masses. No hepatomegaly or splenomegaly. MUSCULOSKELETAL: Normal range of motion at all joints. No bony deformities or tenderness. No CVA tenderness. UPPER EXTREMITIES: No peripheral edema. LOWER EXTREMITIES: No peripheral edema. NEUROLOGICAL: unable to assess PSYCHIATRIC: unable to assess Laboratory Results - last 24 hr 03/31/17 03/31/17 03/31/17 14:55 14:55 14:55 WBC 6.4 RBC 4.02 Hgb 9.4 L D Hct 30.9 L MCV 76.9 L MCH 23.3 L MCHC 30.3 L RDW 19.9 H Plt Count 208 MPV 6.8 L Neutrophils % 58.7 Lymphocytes % 27.4 D Monocytes % 12.4 H Eosinophils % 0.9 D Basophils % 0.6 D PTT (Actin FS) 30.5 ABG pH ABG pCO2 at Pt Temp ABG pO2 at Pt Temp ABG HCO3 ABG O2 Sat (Measured) ABG O2 Content ABG Base Excess Carboxyhemoglobin Sodium 142 Potassium 3.5 Chloride 107 Carbon Dioxide 31 Anion Gap 4 L BUN 25 H Creatinine 1.1 H Creat Clearance w eGFR 50.33 Random Glucose 106 D Lactic Acid Calcium 8.2 L Magnesium 2.0 Total Bilirubin 0.4 AST 23 D ALT 34 D Alkaline Phosphatase 134 H D Creatine Kinase 54 Troponin I < 0.02 B-Natriuretic Peptide 585.24 H Total Protein 7.7 Albumin 3.3 L Blood Type Antibody Screen 03/31/17 03/31/17 03/31/17 14:55 14:55 14:55 WBC RBC Hgb Hct MCV MCH MCHC RDW Plt Count MPV Neutrophils % Lymphocytes % Monocytes % Eosinophils % Basophils % PTT (Actin FS) ABG pH ABG pCO2 at Pt Temp ABG pO2 at Pt Temp ABG HCO3 ABG O2 Sat (Measured) ABG O2 Content ABG Base Excess Carboxyhemoglobin Sodium 143 Potassium 3.5 Chloride 107 Carbon Dioxide 31 Anion Gap 5 L BUN 26 H Creatinine 1.1 H Creat Clearance w eGFR 50.33 Random Glucose 104 Lactic Acid 0.4 Calcium 8.2 L Magnesium 2.1 Total Bilirubin 0.4 AST 22 ALT 34 Alkaline Phosphatase 136 H Creatine Kinase 56 Troponin I < 0.02 B-Natriuretic Peptide Total Protein 7.7 Albumin 3.3 L Blood Type O POSITIVE Antibody Screen Negative 03/31/17 03/31/17 14:55 14:55 WBC RBC Hgb Hct MCV MCH MCHC RDW Plt Count MPV Neutrophils % Lymphocytes % Monocytes % Eosinophils % Basophils % PTT (Actin FS) ABG pH 7.36 ABG pCO2 at Pt Temp 57.2 H D ABG pO2 at Pt Temp 251.0 H* ABG HCO3 31.3 H ABG O2 Sat (Measured) 99.9 H* ABG O2 Content 13.4 L ABG Base Excess 5.3 H Carboxyhemoglobin 3.2 H Sodium Potassium Chloride Carbon Dioxide Anion Gap BUN Creatinine Creat Clearance w eGFR Random Glucose Lactic Acid Calcium Magnesium Total Bilirubin AST ALT Alkaline Phosphatase Creatine Kinase Cancelled Troponin I B-Natriuretic Peptide Total Protein Albumin Blood Type Antibody Screen IMAGES Chest X-Ray (03/31/17): Bibasilar subsegmental atelectasis. Head CT (03/31/17): No acute pathology Cervical Spine CT (03/31/17): No acute pathology ASSESSMENT/PLAN: Patient is a 61 year old female who was found unresponsive on the floor and presented with acute respiratory failure. Patient admitted to the ICU for further monitoring and management. Acute Hypoxic Hypercapneic Respiratory Failure -Possibly secondary to COPD exacerbation -Initially 84% on RA. Improved on BIPAP -Solumedrol 60mg TID -Duoneb QUD and Abuterol Q4H PRN -IF patient worsens will intubate -Daily CXR -Daily Abg -Maintain 02% >90% -Monitor in ICU Acute on Chronic Diastolic CHF -Poor CXR due to body habitus -Will continue Lasix 40mg IVP -Continue daily CXR -Strict I&O's -Daily weights CAD s/p NV and CVA -Continue Aspirin 81mg daily HLD -Continue Lipitor 40mg Microcytic anemia -Hgb stable -Continue Ferrous Sulfate 325mg daily HTN -Continue Norvasc 10mg daily -Continue Coreg 12.5mg BID -Hydralazine 50mg TID -Continue Lisinopril 5mg daily -Continue to monitor BP NIDDMII -BGM -ISS CKD -Baseline 1.1 -Continue to monitor BMP Schozophrenia/Anxiety/Depression -Continue Lexapro 20mg daily -Continue Zyprexa 10mg BID F/E/N -On no fluids. Currently diurese -Electrolytes wnl -NPO Prophylaxis -High risk. Heparin 5000 units SQ Q8H for DVT -No GI Disposition -Full code -Acute rsp failre on BIPAP will need ICU monitoring Visit type - Emergency Visit Emergency Visit: Yes ED Registration Date: 03/31/17 Care time: The patient presented to the Emergency Department on the above date and was hospitalized for further evaluation of their emergent condition. - New Patient This patient is new to me today: Yes Date on this admission: 03/31/17 - Critical Care Critical Care patient: Yes Total Critical Care Time (in minutes): 45 Critical Care Statement: The care of this patient involved high complexity decision making to prevent further life threatening deterioration of the patient 's condition and/or to evaluate & treat vital organ system(s) failure or risk of failure.
[2017-03-31] MEDS ORDERED: ALBUTEROL SO4 0.083% IH SOL 2.5 MG/3 ML VIAL.NEB. NEB PRN (18:17)
[2017-03-31 18:29] LABS: ARTERIAL BLD GAS O2 SATURATION 96.8 % (90-98.9); ARTERIAL BLOOD GAS BASE EXCESS 6.3 meq/l (-2-2); ARTERIAL BLOOD GAS HCO3 32.8 meq/L (22-26); ARTERIAL BLOOD GAS PO2 91.4 mmHg (80-100); ARTERIAL BLOOD GAS pH 7.34 (7.35-7.45)
[2017-03-31 18:45] LABS: ALLENS TEST POSITIVE
--- NOTE | 2017-03-31 19:04 | PN ---
Teaching Attending Note Name of Resident: Margie Sunshine ATTENDING PHYSICIAN STATEMENT I saw and evaluated the patient. I reviewed the resident's note and discussed the case with the resident. I agree with the resident's findings and plan as documented. SUBJECTIVE: Patient is intubated in ED , hx taken from the chart. OBJECTIVE: Vital Signs Temperature 96.6 F L 03/31/17 15:49 Pulse Rate 70 03/31/17 18:03 Respiratory Rate 20 03/31/17 18:03 Blood Pressure 159/100 03/31/17 18:03 O2 Sat by Pulse Oximetry (%) 99 03/31/17 18:32 CBCD WBC 6.4 K/mm3 (4.0-10.0) 03/31/17 14:55 RBC 4.02 M/mm3 (3.60-5.2) 03/31/17 14:55 Hgb 9.4 GM/dL (10.7-15.3) L D 03/31/17 14:55 Hct 30.9 % (32.4-45.2) L 03/31/17 14:55 MCV 76.9 fl (80-96) L 03/31/17 14:55 MCHC 30.3 g/dl (32.0-36.0) L 03/31/17 14:55 RDW 19.9 % (11.6-15.6) H 03/31/17 14:55 Plt Count 208 K/MM3 (134-434) 03/31/17 14:55 MPV 6.8 fl (7.5-11.1) L 03/31/17 14:55 CMP Sodium 143 mmol/L (136-145) 03/31/17 14:55 Potassium 3.5 mmol/L (3.5-5.1) 03/31/17 14:55 Chloride 107 mmol/L (98-107) 03/31/17 14:55 Carbon Dioxide 31 mmol/L (21-32) 03/31/17 14:55 Anion Gap 5 (8-16) L 03/31/17 14:55 BUN 26 mg/dL (7-18) H 03/31/17 14:55 Creatinine 1.1 mg/dL (0.55-1.02) H 03/31/17 14:55 Creat Clearance w eGFR 50.33 (>60) 03/31/17 14:55 Random Glucose 104 mg/dL (74-106) 03/31/17 14:55 Calcium 8.2 mg/dL (8.5-10.1) L 03/31/17 14:55 Total Bilirubin 0.4 mg/dL (0.2-1.0) 03/31/17 14:55 AST 22 U/L (15-37) 03/31/17 14:55 ALT 34 U/L (12-78) 03/31/17 14:55 Alkaline Phosphatase 134 U/L (45-117) H D 03/31/17 14:55 Total Protein 7.7 g/dl (6.4-8.2) 03/31/17 14:55 Albumin 3.3 g/dl (3.4-5.0) L 03/31/17 14:55 CARDIAC ENZYMES Creatine Kinase 54 IU/L (26-192) 03/31/17 14:55 Troponin I < 0.02 ng/ml (0.00-0.05) 03/31/17 14:55 Current Medications Generic Name Dose Route Start Last Admin Trade Name Freq PRN Reason Stop Dose Admin Albuterol Sulfate 1 amp 03/31/17 18:17 Ventolin 0.083% Nebulizer Soln - NEB Q4H PRN SHORT OF BREATH/WHEEZING Albuterol/Ipratropium 1 amp 04/01/17 00:00 Duoneb - NEB QIDR [facility] Amlodipine Besylate 10 mg 04/01/17 10:00 Norvasc - PO DAILY [facility] Aspirin 81 mg 04/01/17 10:00 Ecotrin - PO DAILY [facility] Atorvastatin Calcium 40 mg 03/31/17 22:00 Lipitor - PO HS [facility] Carvedilol 12.5 mg 03/31/17 22:00 Coreg - PO BID [facility] Chlorhexidine Gluconate 1 applic 03/31/17 22:00 Hibiclens For Decolonization - TP HS [facility] Escitalopram Oxalate 20 mg 04/01/17 10:00 Lexapro - PO DAILY [facility] Ferrous Sulfate 325 mg 04/01/17 10:00 Feosol - PO DAILY [facility] Furosemide 40 mg 04/01/17 10:00 Lasix Injection - IVPUSH DAILY [facility] Heparin Sodium (Porcine) 5,000 unit 04/01/17 22:00 Heparin - SQ TID JOSLYN Hydralazine HCl 50 mg 03/31/17 22:00 Apresoline - PO TID [facility] Lisinopril 5 mg 04/01/17 10:00 Prinivil PO DAILY [facility] Methylprednisolone Sodium Succinate 60 mg 03/31/17 20:30 Solu-Medrol - IVPUSH Q8H [facility] Mupirocin 1 applic 03/31/17 22:00 Bactroban Ointment (For Decolonization) - NS 04/05/17 21:59 BID [facility] Olanzapine 10 mg 03/31/17 22:00 Zyprexa - PO BID [facility] Home Medications Medication Instructions Recorded Escitalopram Oxalate [Lexapro -] 20 mg PO DAILY 09/14/15 Olanzapine [Zyprexa -] 10 mg PO BID 09/14/15 Aspirin Coated [Ecotrin -] 81 mg PO DAILY #30 tablet.ec 09/16/15 Amlodipine Besylate [Norvasc -] 10 mg PO DAILY 02/25/16 Carvedilol [Coreg -] 12.5 mg PO BID 02/25/16 Hydralazine HCl [Apresoline -] 50 mg PO TID 02/25/16 Albuterol Sulfate Inhaler - 2 inh PO Q4H PRN #1 inh 11/20/16 [Ventolin HFA Inhaler -] Ferrous Sulfate [Feosol] 325 mg PO DAILY #14 ud 03/29/17 Furosemide [Lasix] 40 mg PO DAILY #14 tablet 03/29/17 Lisinopril [Prinivil] 5 mg PO DAILY #14 tablet 03/29/17 Miscellaneous Drug Not in Syst 0 each DAILY #1 each 03/29/17 Miscellaneous Drug Not in Syst 0 each DAILY #1 each 03/29/17 [Oral Use Only Aux Label] Prednisone See Taper PO DAILY #20 tablet 03/29/17 Rosuvastatin [Crestor -] 10 mg PO DAILY #14 tablet 03/29/17 PE: per resident's note CHEST: decreased BS BL, intubated on the Vent. Cardiac: S1S2 positive. ASSESSMENT AND PLAN: Patient is a 61 year old female with a PMHx of COPD, HTN, Diastolic CHF,HLD, NIDDMII, CKD, Hepatitis C, schizophrenia/bipolar disorder was brought in to ED. for altered mental status with acute respiratory failure with 02 sat. of 84% on room air and was placed on CPAP. Patient has hx of COPD where she deteriorated further and patient was intubated. # Acute hypoxic respiratory failure: Due to exacerbation of COPD, patient is going to ICU, intubated sedated. further care per iCU team. # Acute over chronic COPD exacerbation on Nebulizer txs, Solumedrol 60mg iv q8h #Acute on Chronic Diastolic CHF; ON iv laSIX, iS AND oS, DAILY WEIGHT , on IV Lasix # CAD s/p VT and CVA continue Aspirin 81mg daily # HLD continue Lipitor 40mg # Microcytic anemia Hgb stable, continue Ferrous Sulfate 325mg daily ehen patient is extubated and able to swallow. # Hx HTN continue Norvasc 10mg daily, Coreg 12.5mg BID, hydralazine 50mg TID, Lisinopril 5mg daily #NIDDMII sliding scale with coverage #CKD baseline 1.1 continue to monitor BMP # Hx of Schozophrenia/Anxiety/Depression continue home meds. going to ICU for further treatment.
[2017-03-31 20:44] LABS: THYROID STIMULATING HORMONE 0.97 uIU/ml (0.358-3.74); THYROID STIMULATING HORMONE 0.99 uIU/ml (0.358-3.74)
[2017-03-31] MEDS: methylPREDNISolone NA SUCC 125 MG/2 ML VIAL IVPUSH SCH (21:16)
--- NOTE | 2017-03-31 21:57 | CONSULT ---
Consultation: REQUESTING PROVIDER: CONSULT REQUEST: We have been asked to medically evaluate this patient for respiratory distress HISTORY OF PRESENT ILLNESS: This is a 61 yo F, with PMH of CHF, COPD, HTN, HLD, DM, hepatitis C, CKD, schizophrenia/bipolar disorder, discharged from [facility] 2 days ago after a 3 day stay (intubated for 2 days) due to hypercarbir resp failure due to copd/chf exacerbation, who is BIBEMS after being found on the ground with altered mental status, covered in urine, by certified green building engineer earlier today. EMS recorded O2 sat 84% on RA and placed on CPAP, which improved sat to 100%. Found to be hypercarbid (57) on initial abg, similar to hypercarbia level during last admission. Imaging negative for fractures or LE DVT. She is a current everyday smoker. Patient is unable to provide further history. REVIEW OF SYSTEMS: unable to obtain PHYSICAL EXAMINATION Vital Signs - 24 hr 03/31/17 03/31/17 03/31/17 14:45 15:49 15:59 Temperature 96.6 F L Pulse Rate 82 Pulse Rate [ Left Radial] Respiratory 24 Rate Blood Pressure 178/120 Blood Pressure [Right Arm] O2 Sat by Pulse 100 99 99 Oximetry (%) 03/31/17 03/31/17 03/31/17 16:04 16:52 18:03 Temperature Pulse Rate Pulse Rate [ 78 70 Left Radial] Respiratory 22 20 Rate Blood Pressure Blood Pressure 165/100 159/100 [Right Arm] O2 Sat by Pulse 98 100 99 Oximetry (%) 03/31/17 03/31/17 03/31/17 18:32 19:17 20:51 Temperature Pulse Rate Pulse Rate [ 82 84 Left Radial] Respiratory 18 18 Rate Blood Pressure Blood Pressure 138/81 157/94 [Right Arm] O2 Sat by Pulse 99 98 98 Oximetry (%) GENERAL: lethargic, not responsive to command . HEAD: Normal with no signs of trauma. EYES: Pupils equal, round and reactive to light, extraocular movements intact, sclera anicteric, conjunctiva clear. No lid lag. EARS, NOSE, THROAT: dry mucous membranes. NECK: supple without JVD LUNGS: bibasilar crackles HEART: Regular rate and rhythm, normal S1 and S2 ABDOMEN: obese, Soft, nontender, not distended, normoactive bowel sounds, no guarding, no rebound, no masses. MUSCULOSKELETAL: No bony deformities UPPER EXTREMITIES: 2+ pulses, warm, well-perfused. No cyanosis. No peripheral edema. LOWER EXTREMITIES: 2+ pulses, warm, well-perfused. 1+ peripheral edema. NEUROLOGICAL: unable to assess PSYCHIATRIC: unable to assess SKIN: Warm, dry Laboratory Results - last 24 hr 03/31/17 03/31/17 03/31/17 14:55 14:55 14:55 WBC 6.4 RBC 4.02 Hgb 9.4 L D Hct 30.9 L MCV 76.9 L MCH 23.3 L MCHC 30.3 L RDW 19.9 H Plt Count 208 MPV 6.8 L Neutrophils % 58.7 Lymphocytes % 27.4 D Monocytes % 12.4 H Eosinophils % 0.9 D Basophils % 0.6 D PTT (Actin FS) 30.5 Anticoagulation Therapy Puncture Site ABG pH ABG pCO2 at Pt Temp ABG pO2 at Pt Temp ABG HCO3 ABG O2 Sat (Measured) ABG O2 Content ABG Base Excess Good Test Carboxyhemoglobin O2 Delivery Device Oxygen Flow Rate Vent Mode Vent Rate Mechanical Rate Pressure Support Vent Sodium 142 Potassium 3.5 Chloride 107 Carbon Dioxide 31 Anion Gap 4 L BUN 25 H Creatinine 1.1 H Creat Clearance w eGFR 50.33 Random Glucose 106 D Lactic Acid Calcium 8.2 L Magnesium 2.0 Total Bilirubin 0.4 AST 23 D ALT 34 D Alkaline Phosphatase 134 H D Creatine Kinase 54 Troponin I < 0.02 B-Natriuretic Peptide 585.24 H Total Protein 7.7 Albumin 3.3 L TSH 0.99 D Blood Type Antibody Screen 03/31/17 03/31/17 03/31/17 14:55 14:55 14:55 WBC RBC Hgb Hct MCV MCH MCHC RDW Plt Count MPV Neutrophils % Lymphocytes % Monocytes % Eosinophils % Basophils % PTT (Actin FS) Anticoagulation Therapy Puncture Site ABG pH ABG pCO2 at Pt Temp ABG pO2 at Pt Temp ABG HCO3 ABG O2 Sat (Measured) ABG O2 Content ABG Base Excess Good Test Carboxyhemoglobin O2 Delivery Device Oxygen Flow Rate Vent Mode Vent Rate Mechanical Rate Pressure Support Vent Sodium 143 Potassium 3.5 Chloride 107 Carbon Dioxide 31 Anion Gap 5 L BUN 26 H Creatinine 1.1 H Creat Clearance w eGFR 50.33 Random Glucose 104 Lactic Acid 0.4 Calcium 8.2 L Magnesium 2.1 Total Bilirubin 0.4 AST 22 ALT 34 Alkaline Phosphatase 136 H Creatine Kinase 56 Troponin I < 0.02 B-Natriuretic Peptide Total Protein 7.7 Albumin 3.3 L TSH 0.97 D Blood Type O POSITIVE Antibody Screen Negative 03/31/17 03/31/17 03/31/17 14:55 14:55 18:18 WBC RBC Hgb Hct MCV MCH MCHC RDW Plt Count MPV Neutrophils % Lymphocytes % Monocytes % Eosinophils % Basophils % PTT (Actin FS) Anticoagulation Therapy Y Puncture Site Y ABG pH 7.36 7.34 L ABG pCO2 at Pt Temp 57.2 H D 62.4 H* ABG pO2 at Pt Temp 251.0 H* 91.4 D ABG HCO3 31.3 H 32.8 H ABG O2 Sat (Measured) 99.9 H* 96.8 ABG O2 Content 13.4 L 12.5 L ABG Base Excess 5.3 H 6.3 H Good Test Positive Carboxyhemoglobin 3.2 H O2 Delivery Device Y Oxygen Flow Rate Bipap Vent Mode Y Vent Rate Y Mechanical Rate Y Pressure Support Vent Y Sodium Potassium Chloride Carbon Dioxide Anion Gap BUN Creatinine Creat Clearance w eGFR Random Glucose Lactic Acid Calcium Magnesium Total Bilirubin AST ALT Alkaline Phosphatase Creatine Kinase Cancelled Troponin I B-Natriuretic Peptide Total Protein Albumin TSH Blood Type Antibody Screen Active Medications Generic Name Dose Route Start Last Admin Trade Name Freq PRN Reason Stop Dose Admin Albuterol Sulfate 1 amp 03/31/17 18:17 Ventolin 0.083% Nebulizer Soln - NEB Q4H PRN SHORT OF BREATH/WHEEZING Albuterol/Ipratropium 1 amp 04/01/17 00:00 Duoneb - NEB QIDR [facility] Amlodipine Besylate 10 mg 04/01/17 10:00 Norvasc - PO DAILY [facility] Aspirin 81 mg 04/01/17 10:00 Ecotrin - PO DAILY [facility] Atorvastatin Calcium 40 mg 03/31/17 22:00 Lipitor - PO HS [facility] Carvedilol 12.5 mg 03/31/17 22:00 Coreg - PO BID [facility] Chlorhexidine Gluconate 1 applic 03/31/17 22:00 Hibiclens For Decolonization - TP HS [facility] Escitalopram Oxalate 20 mg 04/01/17 10:00 Lexapro - PO DAILY [facility] Ferrous Sulfate 325 mg 04/01/17 10:00 Feosol - PO DAILY [facility] Furosemide 40 mg 04/01/17 10:00 Lasix Injection - IVPUSH DAILY [facility] Heparin Sodium (Porcine) 5,000 unit 04/01/17 22:00 Heparin - SQ TID [facility] Hydralazine HCl 50 mg 03/31/17 22:00 Apresoline - PO TID [facility] Lisinopril 5 mg 04/01/17 10:00 Prinivil PO DAILY [facility] Methylprednisolone Sodium Succinate 60 mg 03/31/17 20:30 03/31/17 21:16 Solu-Medrol - IVPUSH 60 mg Q8H [facility] Administration Mupirocin 1 applic 03/31/17 22:00 Bactroban Ointment (For Decolonization) - NS 04/05/17 21:59 BID [facility] Olanzapine 10 mg 03/31/17 22:00 Zyprexa - PO BID [facility] ASSESSMENT/PLAN: This is a 61 yo F, with PMH of CHF, COPD, HTN, HLD, DM, hepatitis C, CKD, schizophrenia/bipolar disorder, discharged from [facility] 2 days ago after a 3 day stay (intubated for 2 days) due to hypercarbir resp failure due to copd/chf exacerbation, who is BIBEMS after being found on the ground with altered mental status, covered in urine, by certified green building engineer earlier today. Neuro *Altered mental status -unresponsive to command in setting of hypercarbia -expect improvement with respiratory support -CT head no acute pathology Pulm *Acute on chronic Hypoxic, Hypercapneic Respiratory Failure *COPD exacerbation *CAD -albuterol q4 prn, duoneb qid eliud -medrol 60 tid -bipap; cuttently sats 100% -monitor Co2 (so far worsened to low 60's); intubate if condition worsens -morning abg CV *omponent of Acute on chronic HFPEF exacerbation -CXR appears similar to image on d/c but poor study due to habitus, rotation -lasix 40 IV daily -AM cxr -stric I and O , daily weight Endo *DM -bgm, iss *CKD -creat 1.1 at baseline Musculoskeletal -s/p fall -no fractures foudn on imaging FEN diurese replete lytes prn npo Acute Hypoxic and Hypercapneic Respiratory Failure Acute Diastolic Heart Failure Volume Overload COPD HTN CAD CKD Dispo: We will continue to follow the patient. Thank you for this consultative opportunity. Problem List - Problems (1) COPD exacerbation Code(s): J44.1 - CHRONIC OBSTRUCTIVE PULMONARY DISEASE W (ACUTE) EXACERBATION (2) Acute on chronic diastolic (congestive) heart failure Code(s): I50.33 - ACUTE ON CHRONIC DIASTOLIC (CONGESTIVE) HEART FAILURE (3) Acute respiratory failure with hypoxia and hypercapnia Code(s): J96.01 - ACUTE RESPIRATORY FAILURE WITH HYPOXIA; J96.02 - ACUTE RESPIRATORY FAILURE WITH HYPERCAPNIA (4) Altered mental status Code(s): R41.82 - ALTERED MENTAL STATUS, UNSPECIFIED Qualifiers: Altered mental status type: unspecified Qualified Code(s): R41.82 - Altered mental status, unspecified (5) Bipolar disorder Code(s): F31.9 - BIPOLAR DISORDER, UNSPECIFIED Qualifiers: Active/Remission status: remission status unspecified Qualified Code(s): F31.9 - Bipolar disorder, unspecified (6) CAD (coronary artery disease) Code(s): I25.10 - ATHSCL HEART DISEASE OF [place] CORONARY ARTERY W/O ANG PCTRS Qualifiers: Coronary Disease-Associated Artery/Lesion type: [place] artery [place] vs. transplanted heart: [place] heart Associated angina: without angina Qualified Code(s): I25.10 - Atherosclerotic heart disease of [place] coronary artery without angina pectoris (7) CHF (congestive heart failure) Code(s): I50.9 - HEART FAILURE, UNSPECIFIED (8) Chronic kidney insufficiency Code(s): N18.9 - CHRONIC KIDNEY DISEASE, UNSPECIFIED Qualifiers: Chronic kidney disease stage: unspecified stage Qualified Code(s): N18.9 - Chronic kidney disease, unspecified (9) Diabetes mellitus Code(s): E11.9 - TYPE 2 DIABETES MELLITUS WITHOUT COMPLICATIONS Qualifiers: Diabetes mellitus type: type 2 Diabetes mellitus complication status: without complication Diabetes mellitus exterminator helper termite insulin use: without alf use Qualified Code(s): E11.9 - Type 2 diabetes mellitus without complications (10) Fall Code(s): W19.XXXA - UNSPECIFIED FALL, INITIAL ENCOUNTER Qualifiers: Encounter type: initial encounter Qualified Code(s): W19.XXXA - Unspecified fall, initial encounter Visit type - Emergency Visit Emergency Visit: Yes ED Registration Date: 03/31/17 Care time: The patient presented to the Emergency Department on the above date and was hospitalized for further evaluation of their emergent condition. - New Patient This patient is new to me today: Yes Date on this admission: 03/31/17 - Critical Care Critical Care patient: Yes Total Critical Care Time (in minutes): 35 Critical Care Statement: The care of this patient involved high complexity decision making to prevent further life threatening deterioration of the patient 's condition and/or to evaluate & treat vital organ system(s) failure or risk of failure.
[2017-03-31] MEDS ORDERED: FUROSEMIDE 40 MG/4 ML INJECTABLE VIAL IVPUSH ONE (22:22)
--- NOTE | 2017-03-31 22:24 | CONSULT ---
Consult Consult Specialty:: Pulm/CCM Reason for Consultation:: COPD exacerbation; hypercarbic requiring BiPAP support - History of Present Illness History of Present Illness: 61yow with PMHx of hypertension, hyperlipidemia, diabetes, COPD, hepatitis C, chronic renal insufficiency, schizophrenia/bipolar disorder, who was BIBA after being found down at home by used building materials yard worker. Pt had not been seen for 2 days. Unknown how long on the floor. Also found with oven door open. EMS reports used building materials yard worker went to check on the patient and found the patient on the ground blocking the entrance to her apartment. Cervical collar placed. Placed on BIPAP for O2 sat 84%. BG 118. On note she was recently admitted for COPD exacerbation requiring intubation. D/c'd 1week ago. In ED VSS T 96, HR70, BP 178/120, RR 17, [id number] Labs notable for WBC 6.4, Lactic 0.4, trop 0.02, BNP 585, CK-54.Cervical spine CT showed no cervical fracture or soft tissue pathology. CT head showed no pathology. Pt remained altered and hypercarbic with some improvement on BiPAP. Solumedrol and duonebs given. She was transferred to ICU for further management. In ICU opens eyes to sternal rub, ROMERO, not following commands. VS HR 72, BP 149 /89, O2 sat 96% on BiPAP 14/7, 50%. ABG 7.36, 58.9, 84.6. Pupils [place]. Urine tox sent. Narcan 0.4 x2 given without much change - History Source History Provided By: Medical Record - Past Medical History ACCOUNTING METHODS ANALYST: Yes: TIA Cardio/Vascular: Yes: HTN Pulmonary: Yes: COPD Renal/: Yes: Renal Inusuff Infectious Disease: Yes: Other (HCV) Psych: Yes: Bipolar, Schizophrenia Endocrine: Yes: Diabetes Mellitus - Past Surgical History Past Surgical History: Yes: Hysterectomy - Alcohol/Substance Use Hx Alcohol Use: No History of Substance Use: reports: None - Smoking History Smoking history: Current every day smoker Have you smoked in the past 12 months: Yes Aproximately how many cigarettes per day: 4 - Social History Usual Living Arrangement: Alone ADL: Support Services History of Recent Travel: No Home Medications - Allergies Allergies/Adverse Reactions: Allergies Allergy/AdvReac Type Severity Reaction Status Date / Time ibuprofen [From Motrin IB] Allergy Verified 03/20/17 12:51 metformin Allergy Verified 03/20/17 12:51 Penicillins Allergy Verified 03/20/17 12:51 - Home Medications Home Medications: Ambulatory Orders Escitalopram Oxalate [Lexapro -] 20 mg PO DAILY 09/14/15 Olanzapine [Zyprexa -] 10 mg PO BID 09/14/15 Aspirin Coated [Ecotrin -] 81 mg PO DAILY #30 tablet.ec 09/16/15 Amlodipine Besylate [Norvasc -] 10 mg PO DAILY 02/25/16 Carvedilol [Coreg -] 12.5 mg PO BID 02/25/16 Hydralazine HCl [Apresoline -] 50 mg PO TID 02/25/16 Albuterol Sulfate Inhaler - [Ventolin HFA Inhaler -] 2 inh PO Q4H PRN #1 inh Ferrous Sulfate [Feosol] 325 mg PO DAILY #14 ud 03/29/17 Furosemide [Lasix] 40 mg PO DAILY #14 tablet 03/29/17 Lisinopril [Prinivil] 5 mg PO DAILY #14 tablet 03/29/17 Miscellaneous Drug Not in Syst 0 each DAILY #1 each 03/29/17 Miscellaneous Drug Not in Syst [Oral Use Only Aux Label] 0 each DAILY #1 each 03/29/17 Prednisone See Taper PO DAILY #20 tablet 03/29/17 Rosuvastatin [Crestor -] 10 mg PO DAILY #14 tablet 03/29/17 Family Disease History - Family Disease History Family History: Unable to Obtain Family Disease History: Heart Disease: Father ( in 40s) Review of Systems Unable to obtain ROS, reason: Pt unresponsive Physical Exam Vital Signs: Vital Signs Temperature 96.6 F L 03/31/17 15:49 Pulse Rate 84 03/31/17 20:51 Respiratory Rate 18 03/31/17 20:51 Blood Pressure 157/94 03/31/17 20:51 O2 Sat by Pulse Oximetry (%) 98 03/31/17 20:51 Constitutional: Yes: Obese Eyes: Yes: Other ([place]) HENT: Yes: Atraumatic, Normocephalic, Other (MM dry) Neck: Yes: Other (Cervical collar in place) Cardiovascular: Yes: Regular Rate and Rhythm, S1, S2 Respiratory: Yes: CTA Bilaterally, Diminished (diminished bases), On BiPap Gastrointestinal: Yes: Soft, Abdomen, Obese Renal/: Yes: [place] Present Extremities: Yes: WNL Edema: Yes Edema: LLE: Trace, RLE: Trace Peripheral Pulses WNL: Yes Integumentary: Yes: WNL Neurological: Yes: Unresponsive Labs: CBC, BMP 03/31/17 14:55 03/31/17 14:55 CBC,CMP WBC 6.4 K/mm3 (4.0-10.0) 03/31/17 14:55 RBC 4.02 M/mm3 (3.60-5.2) 03/31/17 14:55 Hgb 9.4 GM/dL (10.7-15.3) L D 03/31/17 14:55 Hct 30.9 % (32.4-45.2) L 03/31/17 14:55 MCV 76.9 fl (80-96) L 03/31/17 14:55 MCH 23.3 pg (25.7-33.7) L 03/31/17 14:55 MCHC 30.3 g/dl (32.0-36.0) L 03/31/17 14:55 RDW 19.9 % (11.6-15.6) H 03/31/17 14:55 Plt Count 208 K/MM3 (134-434) 03/31/17 14:55 MPV 6.8 fl (7.5-11.1) L 03/31/17 14:55 Neutrophils % 58.7 % (42.8-82.8) 03/31/17 14:55 Lymphocytes % 27.4 % (8-40) D 03/31/17 14:55 Monocytes % 12.4 % (3.8-10.2) H 03/31/17 14:55 Eosinophils % 0.9 % (0-4.5) D 03/31/17 14:55 Basophils % 0.6 % (0-2.0) D 03/31/17 14:55 Sodium 143 mmol/L (136-145) 03/31/17 14:55 Potassium 3.5 mmol/L (3.5-5.1) 03/31/17 14:55 Chloride 107 mmol/L (98-107) 03/31/17 14:55 Carbon Dioxide 31 mmol/L (21-32) 03/31/17 14:55 Anion Gap 5 (8-16) L 03/31/17 14:55 BUN 26 mg/dL (7-18) H 03/31/17 14:55 Creatinine 1.1 mg/dL (0.55-1.02) H 03/31/17 14:55 Creat Clearance w eGFR 50.33 (>60) 03/31/17 14:55 Random Glucose 104 mg/dL (74-106) 03/31/17 14:55 Lactic Acid 0.4 mmol/L (0.4-2.0) 03/31/17 14:55 Calcium 8.2 mg/dL (8.5-10.1) L 03/31/17 14:55 Magnesium 2.1 mg/dL (1.8-2.4) 03/31/17 14:55 Total Bilirubin 0.4 mg/dL (0.2-1.0) 03/31/17 14:55 AST 22 U/L (15-37) 03/31/17 14:55 ALT 34 U/L (12-78) 03/31/17 14:55 Alkaline Phosphatase 134 U/L (45-117) H D 03/31/17 14:55 Creatine Kinase 54 IU/L (26-192) 03/31/17 14:55 Troponin I < 0.02 ng/ml (0.00-0.05) 03/31/17 14:55 B-Natriuretic Peptide 585.24 pg/ml (5-125) H 03/31/17 14:55 Total Protein 7.7 g/dl (6.4-8.2) 03/31/17 14:55 Albumin 3.3 g/dl (3.4-5.0) L 03/31/17 14:55 TSH 0.97 uIU/ml (0.358-3.74) D 03/31/17 14:55 ABG Results ABG pH 7.36 (7.35-7.45) 03/31/17 22:23 ABG pCO2 at Pt Temp 58.9 mmHg (35-45) H 03/31/17 22:23 ABG pO2 at Pt Temp 84.6 mmHg (80-100) 03/31/17 22:23 ABG HCO3 32.5 meq/L (22-26) H 03/31/17 22:23 ABG O2 Sat (Measured) 96.4 % (90-98.9) 03/31/17 22:23 ABG O2 Content 11.8 % vol (15-22) L 03/31/17 22:23 ABG Base Excess 6.5 meq/l (-2-2) H 03/31/17 22:23 Active Medications Albuterol Sulfate (Ventolin 0.083% Nebulizer Soln -) 1 amp NEB Q4H PRN PRN Reason: SHORT OF BREATH/WHEEZING Albuterol/Ipratropium (Duoneb -) 1 amp NEB QIDR [facility] Amlodipine Besylate (Norvasc -) 10 mg PO DAILY [facility] Aspirin (Ecotrin -) 81 mg PO DAILY [facility] Atorvastatin Calcium (Lipitor -) 40 mg PO HS [facility] Last Admin: 03/31/17 23:17 Dose: Not Given Carvedilol (Coreg -) 12.5 mg PO BID [facility] Last Admin: 03/31/17 23:17 Dose: Not Given Chlorhexidine Gluconate (Hibiclens For Decolonization -) 1 applic TP HS [facility] Last Admin: 03/31/17 23:17 Dose: 1 applic Escitalopram Oxalate (Lexapro -) 20 mg PO DAILY [facility] Ferrous Sulfate (Feosol -) 325 mg PO DAILY [facility] Furosemide (Lasix Injection -) 40 mg IVPUSH DAILY [facility] Heparin Sodium (Porcine) (Heparin -) 5,000 unit SQ TID [facility] Hydralazine HCl (Apresoline -) 50 mg PO TID [facility] Last Admin: 03/31/17 23:18 Dose: Not Given Potassium Chloride (Potassium Chloride 10 Meq Premix Ivpb -) 10 meq in 100 mls @ 100 mls/hr IVPB Q60M [facility] Stop: 03/31/17 23:44 Last Admin: 03/31/17 23:08 Dose: 100 mls/hr Lisinopril (Prinivil) 5 mg PO DAILY [facility] Methylprednisolone Sodium Succinate (Solu-Medrol -) 60 mg IVPUSH Q8H [facility] Last Admin: 03/31/17 21:16 Dose: 60 mg Mupirocin (Bactroban Ointment (For Decolonization) -) 1 applic NS BID [facility] Stop: 04/05/17 21:59 Last Admin: 03/31/17 23:18 Dose: 1 applic Olanzapine (Zyprexa -) 10 mg PO BID [facility] Last Admin: 03/31/17 23:17 Dose: Not Given Imaging - Results Chest X-ray: Report Reviewed Cat Scan: Report Reviewed Problem List - Problems (1) COPD exacerbation Code(s): J44.1 - CHRONIC OBSTRUCTIVE PULMONARY DISEASE W (ACUTE) EXACERBATION (2) Acute on chronic diastolic (congestive) heart failure Code(s): I50.33 - ACUTE ON CHRONIC DIASTOLIC (CONGESTIVE) HEART FAILURE (3) Acute respiratory failure with hypoxia and hypercapnia Code(s): J96.01 - ACUTE RESPIRATORY FAILURE WITH HYPOXIA; J96.02 - ACUTE RESPIRATORY FAILURE WITH HYPERCAPNIA (4) Altered mental status Code(s): R41.82 - ALTERED MENTAL STATUS, UNSPECIFIED Qualifiers: Altered mental status type: unspecified Qualified Code(s): R41.82 - Altered mental status, unspecified (5) Bipolar disorder Code(s): F31.9 - BIPOLAR DISORDER, UNSPECIFIED Qualifiers: Active/Remission status: remission status unspecified Qualified Code(s): F31.9 - Bipolar disorder, unspecified (6) CAD (coronary artery disease) Code(s): I25.10 - ATHSCL HEART DISEASE OF [place] CORONARY ARTERY W/O ANG PCTRS Qualifiers: Coronary Disease-Associated Artery/Lesion type: [place] artery [place] vs. transplanted heart: [place] heart Associated angina: without angina Qualified Code(s): I25.10 - Atherosclerotic heart disease of [place] coronary artery without angina pectoris (7) CHF (congestive heart failure) Code(s): I50.9 - HEART FAILURE, UNSPECIFIED Assessment/Plan 61yow with PMHx of hypertension, hyperlipidemia, diabetes, COPD, hepatitis C, chronic renal insufficiency, schizophrenia/bipolar disorder who was BIBA after being found down at home. Transferred to ICU with hypoxic/hypercarbic respiratory failure requiring BIPAP support in setting of possible recurrent COPD +/- CHF exacerbation. Pt persistently altered despite correction of hypercarbia. Pulpils [place]. No intracranial pathology noted on CT. C/f drug intoxication. Plan: -BiPAP support for pH 7.35-7.45 -Wean FiO2 as jem for O2 sat >92% -Alb/Atrovent nebs -Intubation if no improvement in abg, mental status -steroids -Diuretics -Cont antihypertensives -f/u tox screen -Psyche consult when improved for management of antipsychotics -DVT and GI prophylaxis Galina Griffin, ACNP CC time 35mins
[2017-03-31 22:34] LABS: ARTERIAL BLD GAS O2 SATURATION 96.4 % (90-98.9); ARTERIAL BLOOD GAS BASE EXCESS 6.5 meq/l (-2-2); ARTERIAL BLOOD GAS HCO3 32.5 meq/L (22-26); ARTERIAL BLOOD GAS PO2 84.6 mmHg (80-100); ARTERIAL BLOOD GAS pH 7.36 (7.35-7.45)
[2017-03-31 22:35] VITALS: BMI 46.2
[2017-03-31 22:35] LABS: ALLENS TEST POSITIVE; ART PUNCT SITE RIGHT RADIAL; LPM/O2% 50%; PT. ON O2? YES
[2017-03-31 22:36] LABS: TYPE OF O2 BIPAP; VENT RATE 16; VT/PRESS 14/7
[2017-03-31 22:45] LABS: ART PUNCT SITE RIGHT RADIAL; LPM/O2% 60%; PT. ON O2? YES; TYPE OF O2 BIPAP
[2017-03-31] MEDS ORDERED: KCL 10 MEQ IVPB 10 MEQ/100 ML INFUS.BAG IVPB SCH (22:45)
[2017-03-31 22:46] LABS: VENT RATE 16
[2017-03-31] MEDS: ATORVASTATIN CA 40 MG TABLET (FP) PO SCH (23:17)
[2017-03-31] MEDS: CARVEDILOL 12.5 MG TABLET (FP) PO SCH (23:17)
[2017-03-31] MEDS: CHLORHEXIDINE GLUCONATE 4% CLEANSER FOR DECOLONIZATION TP SCH (23:17)
[2017-03-31] MEDS: OLANZapine 10 MG TABLET PO SCH (23:17)
[2017-03-31] MEDS: MUPIROCIN 2% TOPICAL OINTMENT FOR DECOLONIZATION NS SCH (23:18)
[2017-03-31] MEDS: hydrALAZINE HCL 50 MG TABLET (FP) PO SCH (23:18)
[2017-03-31] MEDS ORDERED: NALOXONE HCL 0.4 MG/ML VIAL IVPUSH ONE ×2 (23:23→23:52)
[2017-04-01 00:18] LABS: URINE MARIJUANA THC NEGATIVE ng/ml (CUTOFF=50)
[2017-04-01] MEDS: methylPREDNISolone NA SUCC 125 MG/2 ML VIAL IVPUSH SCH ×2 (04:25→11:31)
[2017-04-01] MEDS: hydrALAZINE HCL 50 MG TABLET (FP) PO SCH ×3 (05:43→21:44)
[2017-04-01] MEDS: ALBUTEROL SO4 2.5/IPRATROPIUM 0.5 INH SOL 3 ML VIAL.NEB. NEB SCH ×5 (05:45→23:10)
[2017-04-01 06:19] LABS: BASOPHIL 0.1 % (0-2.0); MCH 23.8 pg (25.7-33.7); MCHC 31.4 g/dl (32.0-36.0); MEAN CELL VOLUME 75.8 fl (80-96); NEUTROPHILS 86.7 % (42.8-82.8); PLATELET COUNT 214 K/MM3 (134-434); RDW 19.6 % (11.6-15.6); WHITE BLOOD COUNT 3.7 K/mm3 (4.0-10.0)
[2017-04-01 06:46] LABS: ANION GAP 3 (8-16); BILIRUBIN,TOTAL 0.4 mg/dL (0.2-1.0); CO2 37 mmol/L (21-32); CREATININE 0.9 mg/dL (0.55-1.02); GLUCOSE,RANDOM 146 mg/dL (74-106); MAGNESIUM 1.9 mg/dL (1.8-2.4); PHOSPHOROUS 4.1 mg/dL (2.5-4.9); SGOT/AST 15 U/L (15-37); SGPT/ALT 32 U/L (12-78); TOT PROT 7.4 g/dl (6.4-8.2)
[2017-04-01 06:47] LABS: ALK PHOS 107 U/L (45-117)
[2017-04-01 07:31] LABS: ARTERIAL BLD GAS O2 SATURATION 92.6 % (90-98.9); ARTERIAL BLOOD GAS HCO3 35.6 meq/L (22-26); ARTERIAL BLOOD GAS PO2 66.7 mmHg (80-100); ARTERIAL BLOOD GAS pH 7.42 (7.35-7.45)
[2017-04-01 07:36] LABS: ALLENS TEST POSITIVE; ART PUNCT SITE RIGHT RADIAL
[2017-04-01 07:37] LABS: LPM/O2% 35%; PT. ON O2? YES; TYPE OF O2 BIPAB
[2017-04-01 07:38] LABS: VENT RATE 18; VT/PRESS 14/6
[2017-04-01] MEDS ORDERED: PT OWN MED DRAWER 7, Y5N ONE (08:35)
[2017-04-01] MEDS ORDERED: ESCITALOPRAM OXALATE 20 MG TABLET (FP) PO SCH (10:00)
--- NOTE | 2017-04-01 10:30 | PN ---
Progress Note (short form) - Note Progress Note: PULMONARY/CCM Pt seen and examined in the ICU. Remains on BiPAP. Somnolent but arousable, answers appropriately. Last Vital Signs Temp Pulse Resp BP Pulse Ox 98.5 F 73 19 127/72 95 04/01/17 06:00 04/01/17 08:00 04/01/17 08:00 04/01/17 08:00 04/01/17 09:05 Intake & Output 03/29/17 03/30/17 03/31/17 04/01/17 23:59 23:59 23:59 23:59 Intake Total 100 Output Total 3700 3400 Balance -3600 -3400 Weight 244 lb 14.4 oz 238 lb 11.2 oz Gen: Somnolent but arousable Heart: RRR Lung: distant breath sounds Abd: soft, nontender Ext: no edema CBC, BMP 04/01/17 05:05 04/01/17 05:05 ABG Results ABG pH 7.42 (7.35-7.45) 04/01/17 07:23 ABG pCO2 at Pt Temp 56.4 mmHg (35-45) H 04/01/17 07:23 ABG pO2 at Pt Temp 66.7 mmHg (80-100) L D 04/01/17 07:23 ABG HCO3 35.6 meq/L (22-26) H 04/01/17 07:23 ABG O2 Sat (Measured) 92.6 % (90-98.9) 04/01/17 07:23 ABG O2 Content 11.7 % vol (15-22) L 04/01/17 07:23 ABG Base Excess 10.0 meq/l (-2-2) H 04/01/17 07:23 Active Medications Albuterol Sulfate (Ventolin 0.083% Nebulizer Soln -) 1 amp NEB Q4H PRN PRN Reason: SHORT OF BREATH/WHEEZING Albuterol/Ipratropium (Duoneb -) 1 amp NEB QIDR JOSLYN Last Admin: 04/01/17 05:45 Dose: 1 amp Amlodipine Besylate (Norvasc -) 10 mg PO DAILY JOSLYN Aspirin (Ecotrin -) 81 mg PO DAILY [facility] Atorvastatin Calcium (Lipitor -) 40 mg PO HS [facility] Last Admin: 03/31/17 23:17 Dose: Not Given Carvedilol (Coreg -) 12.5 mg PO BID [facility] Last Admin: 03/31/17 23:17 Dose: Not Given Chlorhexidine Gluconate (Hibiclens For Decolonization -) 1 applic TP HS [facility] Last Admin: 03/31/17 23:17 Dose: 1 applic Escitalopram Oxalate (Lexapro -) 20 mg PO DAILY [facility] Ferrous Sulfate (Feosol -) 325 mg PO DAILY [facility] Furosemide (Lasix Injection -) 40 mg IVPUSH DAILY [facility] Heparin Sodium (Porcine) (Heparin -) 5,000 unit SQ TID [facility] Hydralazine HCl (Apresoline -) 50 mg PO TID [facility] Last Admin: 04/01/17 05:43 Dose: Not Given Lisinopril (Prinivil) 5 mg PO DAILY [facility] Methylprednisolone Sodium Succinate (Solu-Medrol -) 60 mg IVPUSH Q8H [facility] Last Admin: 04/01/17 04:25 Dose: 60 mg Mupirocin (Bactroban Ointment (For Decolonization) -) 1 applic NS BID [facility] Stop: 04/05/17 21:59 Last Admin: 03/31/17 23:18 Dose: 1 applic Olanzapine (Zyprexa -) 10 mg PO BID [facility] Last Admin: 03/31/17 23:17 Dose: Not Given A/P Acute on Chronic Hypoxic and Hypercapneic Respiratory Failure improving Altered Mental Status ?Benzo overdose Acute COPD Exacerbation HTN DM Hep C Schizophrenia/Bipolar Disorder - continue BiPAP, adjusted settings - continue empiric medrol - inhaled bronchodilators - hold all sedating medications - continue lasix - monitor urine output, creatinine - DVT prophylaxis - continue ICU monitoring critical care time spent reviewing chart, evaluating patient and formulating plan 35 min
[2017-04-01] MEDS: MUPIROCIN 2% TOPICAL OINTMENT FOR DECOLONIZATION NS SCH ×2 (11:00→21:44)
[2017-04-01] MEDS: FERROUS SO4 325 MG TABLET (FP) PO SCH (11:10)
[2017-04-01] MEDS: ASPIRIN COATED 81 MG TABLET.EC PO SCH (11:10)
[2017-04-01] MEDS: CARVEDILOL 12.5 MG TABLET (FP) PO SCH ×2 (11:10→21:44)
[2017-04-01] MEDS: OLANZapine 10 MG TABLET PO SCH (11:11)
[2017-04-01] MEDS: amLODIPine BESYLATE 10 MG TABLET (FP) PO SCH (11:11)
[2017-04-01] MEDS: LISINOPRIL 5 MG TABLET (FP) PO SCH (11:11)
[2017-04-01] MEDS: FUROSEMIDE 40 MG/4 ML INJECTABLE VIAL IVPUSH SCH (11:14)
--- NOTE | 2017-04-01 11:50 | PN ---
Physical Exam: SUBJECTIVE: Patient seen and examined. Somnolent but arousable to verbal and tactile stimuli. Answers appropriately, but remains somnolent. OBJECTIVE: Vital Signs Period Temp Pulse Resp BP Sys/Osei Pulse Ox Last 24 Hr 96.6 F-98.6 F 69-84 17-24 127-178/72-120 95-100 GEN: Somnolent, arousable to sternal rubs. Responsive to some questions HEENT: PERRLA, EOMi, +L sided JVD w/ hepatojug reflex CV: S1, S2, RRR LUNG: Difficult to assess posterior lung. Anterior distant breath sounds ABD: Soft, NT, ND EXT: 3+ pitting edema Active Medications Generic Name Dose Route Start Last Admin Trade Name Freq PRN Reason Stop Dose Admin Albuterol Sulfate 1 amp 03/31/17 18:17 Ventolin 0.083% Nebulizer Soln - NEB Q4H PRN SHORT OF BREATH/WHEEZING Albuterol/Ipratropium 1 amp 04/01/17 00:00 04/01/17 05:45 Duoneb - NEB 1 amp QIDR JOSLYN Administration Amlodipine Besylate 10 mg 04/01/17 10:00 04/01/17 11:11 Norvasc - PO Not Given DAILY JOSLYN Aspirin 81 mg 04/01/17 10:00 04/01/17 11:10 Ecotrin - PO Not Given DAILY JOSLYN Atorvastatin Calcium 40 mg 03/31/17 22:00 03/31/17 23:17 Lipitor - PO Not Given HS JOSLYN Carvedilol 12.5 mg 03/31/17 22:00 04/01/17 11:10 Coreg - PO Not Given BID OJSLYN Chlorhexidine Gluconate 1 applic 03/31/17 22:00 03/31/17 23:17 Hibiclens For Decolonization - TP 1 applic HS JOSLYN Administration Escitalopram Oxalate 20 mg 04/01/17 10:00 04/01/17 11:10 Lexapro - PO Not Given DAILY JOSLYN Ferrous Sulfate 325 mg 04/01/17 10:00 04/01/17 11:10 Feosol - PO Not Given DAILY JOSLYN Furosemide 40 mg 04/01/17 10:00 04/01/17 11:14 Lasix Injection - IVPUSH 40 mg DAILY JOSLYN Administration Heparin Sodium (Porcine) 5,000 unit 04/01/17 22:00 Heparin - SQ TID [facility] Hydralazine HCl 50 mg 03/31/17 22:00 04/01/17 05:43 Apresoline - PO Not Given TID [facility] Lisinopril 5 mg 04/01/17 10:00 04/01/17 11:11 Prinivil PO Not Given DAILY [facility] Methylprednisolone Sodium Succinate 60 mg 03/31/17 20:30 04/01/17 04:25 Solu-Medrol - IVPUSH 60 mg Q8H JOSLYN Administration Mupirocin 1 applic 03/31/17 22:00 04/01/17 11:00 Bactroban Ointment (For Decolonization) - NS 04/05/17 21:59 1 applic BID JOSLYN Administration Olanzapine 10 mg 03/31/17 22:00 04/01/17 11:11 Zyprexa - PO Not Given BID [facility] ASSESSMENT/PLAN: Patient is a 61 year old female who was found unresponsive on the floor and presented with acute respiratory failure. Patient admitted to the ICU for further monitoring and management. # Altered Mental Status - Pt was unable to give history in the AM, but on re-evaluation in the afternoon , she was less somnolent. Stated she had taken her prescribed Xanax for anxiety , did not remember to turkey picker her medications including Lasix and Prednisone taper, and ended up on her floor, but does not remember falling. Utox +Benzo correlates. Likely AMS was a mix between benzo + exacerbation of chronic medical issues. # Acute on Chronic Hypoxic/Hypercap RF - Likely from both COPD and dCHF exacerbation due to patient not taking meds. ABGs improved w/ BiPAP, weaned down to 35%. Continue BiPAP - For COPD component continue Solumedrol 60 TID. ABGs are improving. Duoneb QID + Albuterol Q4 PRN. - For dCHF exac, continue IVP Lasix daily. CXR appears congested w/ pleural effusions. Diuresing well +3000mL. # HTN - Patient was unable to take her home BP meds this morning due to somnolence. BP stable so far. Will likely continue to improve mental status, otherwise will switch to IVP medications # NIDDM - BGM + SSI ACHS # CAD - Continue ASA 81 daily # HLD - Continue Lipitor 40 daily # Microcytic Anemia - Continue ferrous sulfate # Schizophrenia/MDD - Hold Lexapro + Zyprexa for now. Was unable to reach pharmacy to confirm Xanax prescription. # FEN - No IVF due to CHF, elec wnl, sodium controlled diet # PPx - HSQ TID, no GI needed. PT ordered # Dispo - Still requires ICU care, on BiPAP, mental status already improving, continue Medrol + Lasix d/w Dr Surendra Bee MD - PGY1 Resident Internal Medicine Visit type - Emergency Visit Emergency Visit: No - New Patient This patient is new to me today: No - Critical Care Critical Care patient: No - Discharge Referral Referred to [facility] No
--- NOTE | 2017-04-01 14:17 | PN ---
Teaching Attending Note Name of Resident: Alice Bee ATTENDING PHYSICIAN STATEMENT Time of evaluation: 9:30 AM I saw and evaluated the patient. I reviewed the resident's note and discussed the case with the resident. I agree with the resident's findings and plan as documented. SUBJECTIVE: Patient seen and examined, on Bipap, opens eyes to verbal commands, can talk a few words, keeps falling back to sleep. Denies any pain, limited ROS. OBJECTIVE: Vital Signs Period Temp Pulse Resp BP Sys/Osei Pulse Ox Last 24 Hr 96.6 F-98.6 F 69-84 17-24 127-178/72-120 95-100 Intake & Output 03/29/17 03/30/17 03/31/17 04/01/17 23:59 23:59 23:59 23:59 Intake Total 100 Output Total 3700 3400 Balance -3600 -3400 Weight 244 lb 14.4 oz 238 lb 11.2 oz General; on bipap,comfortable no use of acessory muscles of respiration, arousable, talks in few words, falls back to sleep Chest: limited exam given body habitus and lack of co-operation CVS:S1s2 regular Abdomen: soft, obese, NT extremities: 2+ pedal pitting edema Home Medication List Medication Instructions Recorded Confirmed Type Escitalopram Oxalate [Lexapro -] 20 mg PO DAILY 09/14/15 04/01/17 History Olanzapine [Zyprexa -] 10 mg PO BID 09/14/15 04/01/17 History Amlodipine Besylate [Norvasc -] 10 mg PO DAILY 02/25/16 04/01/17 History Carvedilol [Coreg -] 12.5 mg PO BID 02/25/16 04/01/17 History Hydralazine HCl [Apresoline -] 50 mg PO TID 02/25/16 04/01/17 History Atorvastatin Ca [Lipitor] 40 mg PO DAILY 04/01/17 04/01/17 History Active Medications Generic Name Dose Route Start Last Admin Trade Name Freq PRN Reason Stop Dose Admin Albuterol Sulfate 1 amp 03/31/17 18:17 Ventolin 0.083% Nebulizer Soln - NEB Q4H PRN SHORT OF BREATH/WHEEZING Albuterol/Ipratropium 1 amp 04/01/17 00:00 04/01/17 11:47 Duoneb - NEB 1 amp QIDR JOSLYN Administration Amlodipine Besylate 10 mg 04/01/17 10:00 04/01/17 11:11 Norvasc - PO Not Given DAILY [facility] Aspirin 81 mg 04/01/17 10:00 04/01/17 11:10 Ecotrin - PO Not Given DAILY [facility] Atorvastatin Calcium 40 mg 03/31/17 22:00 03/31/17 23:17 Lipitor - PO Not Given HS [facility] Carvedilol 12.5 mg 03/31/17 22:00 04/01/17 11:10 Coreg - PO Not Given BID [facility] Chlorhexidine Gluconate 1 applic 03/31/17 22:00 03/31/17 23:17 Hibiclens For Decolonization - TP 1 applic HS [facility] Administration Escitalopram Oxalate 20 mg 04/01/17 10:00 04/01/17 11:10 Lexapro - PO Not Given DAILY [facility] Ferrous Sulfate 325 mg 04/01/17 10:00 04/01/17 11:10 Feosol - PO Not Given DAILY [facility] Furosemide 40 mg 04/01/17 10:00 04/01/17 11:14 Lasix Injection - IVPUSH 40 mg DAILY [facility] Administration Heparin Sodium (Porcine) 5,000 unit 04/01/17 22:00 Heparin - SQ TID [facility] Hydralazine HCl 50 mg 03/31/17 22:00 04/01/17 13:42 Apresoline - PO Not Given TID [facility] Lisinopril 5 mg 04/01/17 10:00 04/01/17 11:11 Prinivil PO Not Given DAILY [facility] Methylprednisolone Sodium Succinate 60 mg 03/31/17 20:30 04/01/17 11:31 Solu-Medrol - IVPUSH 60 mg Q8H [facility] Administration Mupirocin 1 applic 03/31/17 22:00 04/01/17 11:00 Bactroban Ointment (For Decolonization) - NS 04/05/17 21:59 1 applic BID [facility] Administration Olanzapine 10 mg 03/31/17 22:00 04/01/17 11:11 Zyprexa - PO Not Given BID [facility] Laboratory Results - last 24 hr 03/31/17 03/31/17 03/31/17 14:55 14:55 14:55 WBC 6.4 RBC 4.02 Hgb 9.4 L D Hct 30.9 L MCV 76.9 L MCH 23.3 L MCHC 30.3 L RDW 19.9 H Plt Count 208 MPV 6.8 L Neutrophils % 58.7 Lymphocytes % 27.4 D Monocytes % 12.4 H Eosinophils % 0.9 D Basophils % 0.6 D PTT (Actin FS) 30.5 Anticoagulation Therapy Puncture Site ABG pH ABG pCO2 at Pt Temp ABG pO2 at Pt Temp ABG HCO3 ABG O2 Sat (Measured) ABG O2 Content ABG Base Excess Good Test Carboxyhemoglobin O2 Delivery Device Oxygen Flow Rate Vent Mode Vent Rate Mechanical Rate PEEP Pressure Support Vent Sodium 142 Potassium 3.5 Chloride 107 Carbon Dioxide 31 Anion Gap 4 L BUN 25 H Creatinine 1.1 H Creat Clearance w eGFR 50.33 Random Glucose 106 D Lactic Acid Calcium 8.2 L Phosphorus Magnesium 2.0 Total Bilirubin 0.4 AST 23 D ALT 34 D Alkaline Phosphatase 134 H D Creatine Kinase 54 Troponin I < 0.02 B-Natriuretic Peptide 585.24 H Total Protein 7.7 Albumin 3.3 L TSH 0.99 D Opiates Screen Methadone Screen Barbiturate Screen Phencyclidine Screen Ur Amphetamines Screen MDMA (Ecstasy) Screen Benzodiazepines Screen Cocaine Screen U Marijuana (THC) Screen Blood Type Antibody Screen 03/31/17 03/31/17 03/31/17 14:55 14:55 14:55 WBC RBC Hgb Hct MCV MCH MCHC RDW Plt Count MPV Neutrophils % Lymphocytes % Monocytes % Eosinophils % Basophils % PTT (Actin FS) Anticoagulation Therapy Puncture Site ABG pH ABG pCO2 at Pt Temp ABG pO2 at Pt Temp ABG HCO3 ABG O2 Sat (Measured) ABG O2 Content ABG Base Excess Good Test Carboxyhemoglobin O2 Delivery Device Oxygen Flow Rate Vent Mode Vent Rate Mechanical Rate PEEP Pressure Support Vent Sodium 143 Potassium 3.5 Chloride 107 Carbon Dioxide 31 Anion Gap 5 L BUN 26 H Creatinine 1.1 H Creat Clearance w eGFR 50.33 Random Glucose 104 Lactic Acid 0.4 Calcium 8.2 L Phosphorus Magnesium 2.1 Total Bilirubin 0.4 AST 22 ALT 34 Alkaline Phosphatase 136 H Creatine Kinase 56 Troponin I < 0.02 B-Natriuretic Peptide Total Protein 7.7 Albumin 3.3 L TSH 0.97 D Opiates Screen Methadone Screen Barbiturate Screen Phencyclidine Screen Ur Amphetamines Screen MDMA (Ecstasy) Screen Benzodiazepines Screen Cocaine Screen U Marijuana (THC) Screen Blood Type O POSITIVE Antibody Screen Negative 03/31/17 03/31/17 03/31/17 14:55 14:55 18:18 WBC RBC Hgb Hct MCV MCH MCHC RDW Plt Count MPV Neutrophils % Lymphocytes % Monocytes % Eosinophils % Basophils % PTT (Actin FS) Anticoagulation Therapy Y Puncture Site Right radial ABG pH 7.36 7.34 L ABG pCO2 at Pt Temp 57.2 H D 62.4 H* ABG pO2 at Pt Temp 251.0 H* 91.4 D ABG HCO3 31.3 H 32.8 H ABG O2 Sat (Measured) 99.9 H* 96.8 ABG O2 Content 13.4 L 12.5 L ABG Base Excess 5.3 H 6.3 H Good Test Positive Carboxyhemoglobin 3.2 H O2 Delivery Device Bipap Oxygen Flow Rate 60% Vent Mode S/t Vent Rate 16 Mechanical Rate Y PEEP Pressure Support Vent 12/7 Sodium Potassium Chloride Carbon Dioxide Anion Gap BUN Creatinine Creat Clearance w eGFR Random Glucose Lactic Acid Calcium Phosphorus Magnesium Total Bilirubin AST ALT Alkaline Phosphatase Creatine Kinase Cancelled Troponin I B-Natriuretic Peptide Total Protein Albumin TSH Opiates Screen Methadone Screen Barbiturate Screen Phencyclidine Screen Ur Amphetamines Screen MDMA (Ecstasy) Screen Benzodiazepines Screen Cocaine Screen U Marijuana (THC) Screen Blood Type Antibody Screen 03/31/17 03/31/17 04/01/17 22:23 22:45 05:05 WBC 3.7 L D RBC 4.03 Hgb 9.6 L Hct 30.5 L MCV 75.8 L MCH 23.8 L MCHC 31.4 L RDW 19.6 H Plt Count 214 MPV 7.0 L Neutrophils % 86.7 H D Lymphocytes % 11.4 D Monocytes % 1.8 L D Eosinophils % 0.0 D Basophils % 0.1 PTT (Actin FS) Anticoagulation Therapy Puncture Site Right radial ABG pH 7.36 ABG pCO2 at Pt Temp 58.9 H ABG pO2 at Pt Temp 84.6 ABG HCO3 32.5 H ABG O2 Sat (Measured) 96.4 ABG O2 Content 11.8 L ABG Base Excess 6.5 H Good Test Positive Carboxyhemoglobin O2 Delivery Device Bipap Oxygen Flow Rate 50% Vent Mode S/t Vent Rate 16 Mechanical Rate PEEP 0.0 Pressure Support Vent 14/7 Sodium Potassium Chloride Carbon Dioxide Anion Gap BUN Creatinine Creat Clearance w eGFR Random Glucose Lactic Acid Calcium Phosphorus Magnesium Total Bilirubin AST ALT Alkaline Phosphatase Creatine Kinase Troponin I B-Natriuretic Peptide Total Protein Albumin TSH Opiates Screen Negative Methadone Screen Negative Barbiturate Screen Negative Phencyclidine Screen Negative Ur Amphetamines Screen Negative MDMA (Ecstasy) Screen Negative Benzodiazepines Screen Positive Cocaine Screen Negative U Marijuana (THC) Screen Negative Blood Type Antibody Screen 04/01/17 04/01/17 05:05 07:23 WBC RBC Hgb Hct MCV MCH MCHC RDW Plt Count MPV Neutrophils % Lymphocytes % Monocytes % Eosinophils % Basophils % PTT (Actin FS) Anticoagulation Therapy Puncture Site Right radial ABG pH 7.42 ABG pCO2 at Pt Temp 56.4 H ABG pO2 at Pt Temp 66.7 L D ABG HCO3 35.6 H ABG O2 Sat (Measured) 92.6 ABG O2 Content 11.7 L ABG Base Excess 10.0 H Good Test Positive Carboxyhemoglobin O2 Delivery Device Bipab Oxygen Flow Rate 35% Vent Mode Vent Rate 18 Mechanical Rate PEEP Pressure Support Vent 14/6 Sodium 143 Potassium 3.7 Chloride 103 Carbon Dioxide 37 H Anion Gap 3 L BUN 20 H D Creatinine 0.9 Creat Clearance w eGFR > 60 Random Glucose 146 H D Lactic Acid Calcium 8.0 L Phosphorus 4.1 D Magnesium 1.9 Total Bilirubin 0.4 AST 15 D ALT 32 Alkaline Phosphatase 107 D Creatine Kinase Troponin I B-Natriuretic Peptide Total Protein 7.4 Albumin 3.0 L TSH Opiates Screen Methadone Screen Barbiturate Screen Phencyclidine Screen Ur Amphetamines Screen MDMA (Ecstasy) Screen Benzodiazepines Screen Cocaine Screen U Marijuana (THC) Screen Blood Type Antibody Screen CXR - limited exam, bibasilar segmental atelectasis ASSESSMENT AND PLAN: 61 yof with morbid obesity, COPD, CKD ?stage III (Last creatinine in 11/2016 1.1) , bipolar, NIDDM, recently admitted for hypoxic/hypercarbic respiratory failure secondary to CHF/COPD, found down on floor lethargic, found with positive benzos , borderline elevated carboxyHb, and acute hypoxic/hypercarbic respiratory failure. -Acute hypoxic/hypercarbic respiratory failure -Acute diastolic Heart failure exacerbation -Acute COPD exacerbation ?Unwitnessed fall -AMS, suspect encephalopathy multifactorial from benzo use (not home med or given in ED, ?received on recent admit), hypoxia, hypercarbia -?Benzo use -Morbid obesity -NIDDM -bipolar disorder Plan: Bipap, put out 3.8 L yesterday, lasix 40 mg IV daily, Strict I/os and daily weights. IV steroids,with nebs Hold antibiotics trauma w/u neg in ED. Discuss drug use when more awake, hold escitalopram and olanzapine for now. Avoid sedatives. Continue coreg/hydralazine/lisinopril Continue statin DVTPPX dispo pending improvement in respiratory status. PT eval when awake Critical care time spent in ICU 35 min.
[2017-04-01] MEDS: methylPREDNISolone NA SUCC 40 MG/1 ML VIAL IVPUSH SCH (18:06)
--- NOTE | 2017-04-01 21:27 | EKG ---
Test Reason : Blood Pressure : / mmHG Vent. Rate : 074 BPM Atrial Rate : 074 BPM P-R Int : 176 ms QRS Dur : 080 ms QT Int : 420 ms P-R-T Axes : 049 009 048 degrees QTc Int : 466 ms POOR DATA QUALITY, INTERPRETATION MAY BE ADVERSELY AFFECTED NORMAL SINUS RHYTHM NORMAL ECG WHEN COMPARED WITH ECG OF 27-MAR-2017 01:43, NO SIGNIFICANT CHANGE WAS FOUND Confirmed by MACK WEINER, SANJAY ([id number]) on 04/01/2017 9:26:32 PM Referred By: Confirmed By:SANJAY GIRON MD
[2017-04-01] MEDS: HEPARIN NA (PORCINE) 5,000 UNITS/ML 1ML VIAL SQ SCH (21:44)
[2017-04-01] MEDS: ATORVASTATIN CA 40 MG TABLET (FP) PO SCH (21:44)
[2017-04-01] MEDS: CHLORHEXIDINE GLUCONATE 4% CLEANSER FOR DECOLONIZATION TP SCH (21:44)
[2017-04-02] MEDS: methylPREDNISolone NA SUCC 40 MG/1 ML VIAL IVPUSH SCH ×2 (01:42→10:16)
[2017-04-02 05:54] LABS: BASOPHIL 0.1 % (0-2.0); MCH 23.8 pg (25.7-33.7); MCHC 31.3 g/dl (32.0-36.0); MEAN CELL VOLUME 76.2 fl (80-96); MEAN PLT VOLUME 7.1 fl (7.5-11.1); NEUTROPHILS 91.9 % (42.8-82.8); PLATELET COUNT 201 K/MM3 (134-434); RDW 19.4 % (11.6-15.6); WHITE BLOOD COUNT 6.9 K/mm3 (4.0-10.0)
[2017-04-02 06:27] LABS: ALBUMIN 2.9 g/dl (3.4-5.0); ANION GAP 5 (8-16); CALCIUM 8.1 mg/dL (8.5-10.1); CO2 38 mmol/L (21-32); GLUCOSE,RANDOM 168 mg/dL (74-106); MAGNESIUM 1.9 mg/dL (1.8-2.4)
[2017-04-02 06:32] LABS: ALK PHOS 78 U/L (45-117); BILIRUBIN,TOTAL 0.4 mg/dL (0.2-1.0); CREATININE 1.1 mg/dL (0.55-1.02); PHOSPHOROUS 3.1 mg/dL (2.5-4.9); SGOT/AST 7 U/L (15-37); SGPT/ALT 25 U/L (12-78); TOT PROT 6.5 g/dl (6.4-8.2)
[2017-04-02] MEDS: hydrALAZINE HCL 50 MG TABLET (FP) PO SCH ×3 (06:38→21:13)
[2017-04-02] MEDS: HEPARIN NA (PORCINE) 5,000 UNITS/ML 1ML VIAL SQ SCH ×3 (06:38→21:56)
[2017-04-02] MEDS: ALBUTEROL SO4 2.5/IPRATROPIUM 0.5 INH SOL 3 ML VIAL.NEB. NEB SCH ×3 (06:50→18:51)
[2017-04-02] MEDS: CARVEDILOL 12.5 MG TABLET (FP) PO SCH ×2 (10:16→21:13)
[2017-04-02] MEDS: LISINOPRIL 5 MG TABLET (FP) PO SCH (10:16)
[2017-04-02] MEDS: ASPIRIN COATED 81 MG TABLET.EC PO SCH (10:16)
[2017-04-02] MEDS: amLODIPine BESYLATE 10 MG TABLET (FP) PO SCH (10:17)
[2017-04-02] MEDS: FERROUS SO4 325 MG TABLET (FP) PO SCH (10:17)
[2017-04-02] MEDS: FUROSEMIDE 40 MG/4 ML INJECTABLE VIAL IVPUSH SCH (10:18)
[2017-04-02] MEDS: MUPIROCIN 2% TOPICAL OINTMENT FOR DECOLONIZATION NS SCH (10:19)
--- NOTE | 2017-04-02 10:38 | PN ---
Progress Note (short form) - Note Progress Note: PULMONARY/CCM Pt seen and examined in the ICU. Much more alert, awake today. Denies shortness of breath or chest pain. Last Vital Signs Temp Pulse Resp BP Pulse Ox 98.8 F 83 17 133/73 96 04/02/17 06:00 04/02/17 08:00 04/02/17 08:00 04/02/17 08:00 04/02/17 09:02 Intake & Output 03/30/17 03/31/17 04/01/17 04/02/17 23:59 23:59 23:59 23:59 Intake Total 100 500 Output Total 3700 5700 800 Balance -3600 -5700 -300 Weight 244 lb 14.4 oz 238 lb 11.2 oz 241 lb 1.6 oz Gen: somnolent but arousable Heart: RRR Lung: distant breath sounds Abd: soft, nontender Ext: no edema CBC, BMP 04/02/17 05:00 04/02/17 05:00 Active Medications Albuterol Sulfate (Ventolin 0.083% Nebulizer Soln -) 1 amp NEB Q4H PRN PRN Reason: SHORT OF BREATH/WHEEZING Albuterol/Ipratropium (Duoneb -) 1 amp NEB QIDR [facility] Last Admin: 04/02/17 06:50 Dose: 1 amp Amlodipine Besylate (Norvasc -) 10 mg PO DAILY [facility] Last Admin: 04/02/17 10:17 Dose: 10 mg Aspirin (Ecotrin -) 81 mg PO DAILY [facility] Last Admin: 04/02/17 10:16 Dose: 81 mg Atorvastatin Calcium (Lipitor -) 40 mg PO HS [facility] Last Admin: 04/01/17 21:44 Dose: 40 mg Carvedilol (Coreg -) 12.5 mg PO BID [facility] Last Admin: 04/02/17 10:16 Dose: 12.5 mg Chlorhexidine Gluconate (Hibiclens For Decolonization -) 1 applic TP HS [facility] Last Admin: 04/01/17 21:44 Dose: 1 applic Ferrous Sulfate (Feosol -) 325 mg PO DAILY [facility] Last Admin: 04/02/17 10:17 Dose: 325 mg Furosemide (Lasix Injection -) 40 mg IVPUSH DAILY [facility] Last Admin: 04/02/17 10:18 Dose: 40 mg Heparin Sodium (Porcine) (Heparin -) 5,000 unit SQ TID [facility] Last Admin: 04/02/17 06:38 Dose: 5,000 unit Hydralazine HCl (Apresoline -) 50 mg PO TID [facility] Last Admin: 04/02/17 06:38 Dose: 50 mg Lisinopril (Prinivil) 5 mg PO DAILY [facility] Last Admin: 04/02/17 10:16 Dose: 5 mg Methylprednisolone Sodium Succinate (Solu-Medrol -) 40 mg IVPUSH Q8H-IV [facility] Last Admin: 04/02/17 10:16 Dose: 40 mg Mupirocin (Bactroban Ointment (For Decolonization) -) 1 applic NS BID [facility] Stop: 04/05/17 21:59 Last Admin: 04/02/17 10:19 Dose: 1 applic A/P Acute on Chronic Hypoxic and Hypercapneic Respiratory Failure improving Altered Mental Status ?Benzo overdose Acute COPD Exacerbation HTN DM Hep C Schizophrenia/Bipolar Disorder - continue BiPAP as needed - taper off empiric medrol - inhaled bronchodilators - hold all sedating medications - continue lasix - monitor urine output, creatinine - DVT prophylaxis - can monitor on floor
[2017-04-02] MEDS ORDERED: oxyCODONE HCL 5 MG TABLET PO ONE (10:45)
[2017-04-02] MEDS ORDERED: ACETAMINOPHEN 325 MG TABLET (FP) PO ONE (10:45)
--- NOTE | 2017-04-02 11:24 | PN ---
Teaching Attending Note Name of Resident: . Time of evaluation: 7:50 AM SUBJECTIVE: Patient seen and examined. Breathing improved. Reports being on vicodin at home and asking for the same. No other complaints. OBJECTIVE: Vital Signs Period Temp Pulse Resp BP Sys/Osei Pulse Ox Last 24 Hr 98.2 F-99.2 F 70-85 17-23 103-168/66-93 94-100 Intake & Output 03/30/17 03/31/17 04/01/17 04/02/17 23:59 23:59 23:59 23:59 Intake Total 100 500 Output Total 3700 5700 800 Balance -3600 -5700 -300 Weight 244 lb 14.4 oz 238 lb 11.2 oz 241 lb 1.6 oz General: lying comfortably in bed CVS;S1S2 regular Chest: decreased effort, no rales or wheezing, exam limited by habitus Abdomen: soft, obese, NT extremities: 2+pedal edema Active Medications Albuterol Sulfate (Ventolin 0.083% Nebulizer Soln -) 1 amp NEB Q4H PRN PRN Reason: SHORT OF BREATH/WHEEZING Albuterol/Ipratropium (Duoneb -) 1 amp NEB QIDR [facility] Last Admin: 04/02/17 06:50 Dose: 1 amp Amlodipine Besylate (Norvasc -) 10 mg PO DAILY [facility] Last Admin: 04/02/17 10:17 Dose: 10 mg Aspirin (Ecotrin -) 81 mg PO DAILY [facility] Last Admin: 04/02/17 10:16 Dose: 81 mg Atorvastatin Calcium (Lipitor -) 40 mg PO HS [facility] Last Admin: 04/01/17 21:44 Dose: 40 mg Carvedilol (Coreg -) 12.5 mg PO BID [facility] Last Admin: 04/02/17 10:16 Dose: 12.5 mg Chlorhexidine Gluconate (Hibiclens For Decolonization -) 1 applic TP HS [facility] Last Admin: 04/01/17 21:44 Dose: 1 applic Ferrous Sulfate (Feosol -) 325 mg PO DAILY [facility] Last Admin: 04/02/17 10:17 Dose: 325 mg Furosemide (Lasix Injection -) 40 mg IVPUSH DAILY [facility] Last Admin: 04/02/17 10:18 Dose: 40 mg Heparin Sodium (Porcine) (Heparin -) 5,000 unit SQ TID [facility] Last Admin: 04/02/17 06:38 Dose: 5,000 unit Hydralazine HCl (Apresoline -) 50 mg PO TID [facility] Last Admin: 04/02/17 06:38 Dose: 50 mg Lisinopril (Prinivil) 5 mg PO DAILY [facility] Last Admin: 04/02/17 10:16 Dose: 5 mg Methylprednisolone Sodium Succinate (Solu-Medrol -) 40 mg IVPUSH Q12H [facility] Mupirocin (Bactroban Ointment (For Decolonization) -) 1 applic NS BID [facility] Stop: 04/05/17 21:59 Last Admin: 04/02/17 10:19 Dose: 1 applic Laboratory Results - last 24 hr 04/02/17 04/02/17 05:00 05:00 WBC 6.9 D RBC 3.79 Hgb 9.0 L Hct 28.9 L MCV 76.2 L MCH 23.8 L MCHC 31.3 L RDW 19.4 H Plt Count 201 MPV 7.1 L Neutrophils % 91.9 H Lymphocytes % 5.3 L D Monocytes % 2.7 L Eosinophils % 0.0 Basophils % 0.1 Sodium 142 Potassium 3.7 Chloride 99 Carbon Dioxide 38 H Anion Gap 5 L BUN 32 H D Creatinine 1.1 H D Creat Clearance w eGFR 50.33 Random Glucose 168 H Calcium 8.1 L Phosphorus 3.1 D Magnesium 1.9 Total Bilirubin 0.4 AST 7 L D ALT 25 D Alkaline Phosphatase 78 D Total Protein 6.5 Albumin 2.9 L CXR - no discrete disease ASSESSMENT AND PLAN: 61 yof with morbid obesity, COPD, CKD ?stage III (Last creatinine in 11/2016 1.1) , bipolar, NIDDM, recently admitted for hypoxic/hypercarbic respiratory failure secondary to CHF/COPD, found down on floor lethargic, found with positive benzos , borderline elevated carboxyHb, and acute hypoxic/hypercarbic respiratory failure. -Acute hypoxic/hypercarbic respiratory failure -Acute diastolic Heart failure exacerbation -Acute COPD exacerbation ?Unwitnessed fall -AMS, suspect encephalopathy multifactorial from benzo use (not home med or given in ED, ?received on recent admit), hypoxia, hypercarbia -?Benzo use -Morbid obesity -NIDDM -bipolar disorder Plan: Bipap, put out 3.8 L yesterday, lasix 40 mg IV daily, Strict I/os and daily weights. Change to PO lasix in AM. IV steroids,with nebs, taper solumedrol, transition to PO in AM with slow taper. markedly improved, refused bipap last night. Patient reports being on vicodin at home and xanax, will confirm with [facility] in AM. Drug screen neg for opiates. Also reports unable to fill her lasix and prednisone after her last d.c Suspect sedative use with non compliance with recent dc meds contributory to her current picture. Will hold sedatives, avoid narcotics for now. Hold antibiotics trauma w/u neg in ED. resume zyprexa and lexapro as mental status stable. Continue coreg/hydralazine/lisinopril Continue statin DVTPPX dispo pending improvement in respiratory status. PT eval OK for transfer to floors Anticipate d/c in 24hours on oral lasix/prednisone if continues to improve. Pre and post ambulatory oxygen saturations in AM. Plan discussed with patient and RN in detail, all questions answered. Critical care time spent in ICU 35 min.
[2017-04-02] MEDS ORDERED: oxyCODONE HCL 5 MG TABLET ONE (13:31)
[2017-04-02] MEDS ORDERED: ACETAMINOPHEN 325 MG TABLET (FP) ONE (13:31)
[2017-04-02] MEDS ORDERED: ALBUTEROL SO4 0.083% IH SOL 2.5 MG/3 ML VIAL.NEB. NEB PRN (16:29)
[2017-04-02] MEDS ORDERED: PT OWN MED DRAWER 7, Y5N ONE (21:00)
[2017-04-02] MEDS: OLANZapine 10 MG TABLET PO SCH (21:14)
[2017-04-02] MEDS: ATORVASTATIN CA 40 MG TABLET (FP) PO SCH (21:56)
[2017-04-02] MEDS ORDERED: methylPREDNISolone NA SUCC 40 MG/1 ML VIAL IVPUSH SCH ×2 (22:00)
[2017-04-03] MEDS: ALBUTEROL SO4 2.5/IPRATROPIUM 0.5 INH SOL 3 ML VIAL.NEB. NEB SCH ×5 (00:23→23:04)
[2017-04-03] MEDS: HEPARIN NA (PORCINE) 5,000 UNITS/ML 1ML VIAL SQ SCH ×4 (05:24→21:43)
[2017-04-03] MEDS: hydrALAZINE HCL 50 MG TABLET (FP) PO SCH ×3 (05:24→21:43)
--- NOTE | 2017-04-03 07:52 | PN ---
Physical Exam: SUBJECTIVE: Patient seen and examined at bedside. Patient states that her breathing is better and that she has no current shortness of breath. She states that she needs to purchase a pill box that has morning, afternoon, and evening written on it to keep her medications straight. She states that after discharge from her previous admission, she never made it to the pharmacy to grain picker her medications before being readmitted. Denies chest pain, SOB, nausea, vomiting, diarrhea, fevers, chills. OBJECTIVE: Vital Signs Period Temp Pulse Resp BP Sys/Osei Pulse Ox Last 24 Hr 78 F-97.6 F 68-83 11-20 112-149/50-95 96-100 GENERAL: The patient is awake, alert, and fully oriented, in no acute distress. HEAD: Normal with no signs of trauma. NECK: Trachea midline, full range of motion, supple. LUNGS: Breath sounds equal, clear to auscultation bilaterally, no wheezes, mild crackles noted in the R lung base on exam, no accessory muscle use. HEART: Regular rate and rhythm, S1, S2, systolic murmur noted on exam, no rubs or gallops. ABDOMEN: Obese, soft, nontender, nondistended, normoactive bowel sounds, no guarding, no rebound, no hepatosplenomegaly, no masses. EXTREMITIES: 2+ pulses, warm, well-perfused, 1+ pitting edema NEUROLOGICAL: Cranial nerves II through XII grossly intact. Normal speech, gait not observed. PSYCH: Normal mood, normal affect. SKIN: Warm, dry, normal turgor, no rashes or lesions noted Active Medications Generic Name Dose Route Start Last Admin Trade Name Freq PRN Reason Stop Dose Admin Albuterol Sulfate 1 amp 04/02/17 16:29 Ventolin 0.083% Nebulizer Soln - NEB Q4H PRN SHORT OF BREATH/WHEEZING Albuterol/Ipratropium 1 amp 04/02/17 18:00 04/03/17 06:46 Duoneb - NEB 1 amp QIDR [facility] Administration Amlodipine Besylate 10 mg 04/03/17 10:00 Norvasc - PO DAILY [facility] Aspirin 81 mg 04/03/17 10:00 Ecotrin - PO DAILY [facility] Atorvastatin Calcium 40 mg 04/02/17 22:00 04/02/17 21:56 Lipitor - PO 40 mg HS [facility] Administration Carvedilol 12.5 mg 04/02/17 22:00 04/02/17 21:13 Coreg - PO 12.5 mg BID [facility] Administration Escitalopram Oxalate 20 mg 04/03/17 10:00 Lexapro - PO DAILY [facility] Ferrous Sulfate 325 mg 04/03/17 10:00 Feosol - PO DAILY [facility] Furosemide 40 mg 04/03/17 10:00 Lasix Injection - IVPUSH DAILY [facility] Heparin Sodium (Porcine) 5,000 unit 04/02/17 22:00 04/03/17 05:24 Heparin - SQ 5,000 unit TID [facility] Administration Hydralazine HCl 50 mg 04/02/17 22:00 04/03/17 05:24 Apresoline - PO 50 mg TID [facility] Administration Lisinopril 5 mg 04/03/17 10:00 Prinivil PO DAILY [facility] Methylprednisolone Sodium Succinate 40 mg 04/02/17 22:00 04/02/17 21:13 Solu-Medrol - IVPUSH 40 mg Q12H [facility] Administration Olanzapine 10 mg 04/02/17 22:00 04/02/17 21:14 Zyprexa - PO 10 mg BID [facility] Administration ASSESSMENT/PLAN: 61 year old female with a past medical history of CHF, COPD, HTN, HLD, DM, hepatitis C, CKD, schizophrenia/bipolar, is readmitted to the hospital after being discharged 2 days ago for acute respiratory failure. #Acute Respiratory Failure 2/2 CHF exacerbation: improved -patient initially treated on BiPap and ABG improved -transition to PO prednisone 40mg QD; can send home on taper -continue duonebs PRN -continue ventolin -monitor O2 sats -transition furosemide to 40mg PO daily -pre and post test -strict I's/O's #Hypertension: BP stable -continue lisinopril 5mg PO QD -continue carvedilol 12.5mg PO BID -continue hydralazine 50mg PO TID #Diabetes Mellitus: -continue blood glucose monitoring -Sliding scale insulin #Coronary artery disease: -continue ASA 81mg -continue atorvastatin 40mg QD #Schizophrenia/Bipolar: -continue escitalopram -continue olanzapine #Anemia: stable -continue ferrous sulfate #FEN No standing fluids Replete electrolytes as necessary Sodium/Diabetic diet #Prophylaxis Heparin 5000 subQ TID No GI prophylaxis indicated #Disposition DC today on oral lasix/prednisone Visit type - Emergency Visit Emergency Visit: No - New Patient This patient is new to me today: No - Critical Care Critical Care patient: No
[2017-04-03 07:54] LABS: BASOPHIL 0.4 % (0-2.0); MCH 23.1 pg (25.7-33.7); MCHC 30.2 g/dl (32.0-36.0); MEAN CELL VOLUME 76.4 fl (80-96); MEAN PLT VOLUME 6.8 fl (7.5-11.1); NEUTROPHILS 84.3 % (42.8-82.8); PLATELET COUNT 172 K/MM3 (134-434); RDW 19.6 % (11.6-15.6); WHITE BLOOD COUNT 6.7 K/mm3 (4.0-10.0)
[2017-04-03 08:20] LABS: ALBUMIN 3.1 g/dl (3.4-5.0); ALK PHOS 108 U/L (45-117); ANION GAP 8 (8-16); BILIRUBIN,TOTAL 0.3 mg/dL (0.2-1.0); CALCIUM 8.5 mg/dL (8.5-10.1); CO2 34 mmol/L (21-32); CREATININE 1.4 mg/dL (0.55-1.02); GLUCOSE,RANDOM 156 mg/dL (74-106); MAGNESIUM 2.1 mg/dL (1.8-2.4); PHOSPHOROUS 3.2 mg/dL (2.5-4.9); SGOT/AST 8 U/L (15-37); SGPT/ALT 25 U/L (12-78)
--- NOTE | 2017-04-03 08:36 | PN ---
Teaching Attending Note Name of Resident: Raghu Gonzalez ATTENDING PHYSICIAN STATEMENT Time of evaluation: I saw and evaluated the patient. I reviewed the resident's note and discussed the case with the resident. I agree with the resident's findings and plan as documented. SUBJECTIVE: Patient seen and examined. breathing improved, no new complaints, feeling good overall. OBJECTIVE: Vital Signs Period Temp Pulse Resp BP Sys/Osei Pulse Ox Last 24 Hr 78 F-97.6 F 68-78 11-20 112-149/50-95 96-100 Intake & Output 03/31/17 04/01/17 04/02/17 04/03/17 23:59 23:59 23:59 23:59 Intake Total 100 1500 Output Total 3700 5700 3000 Balance -3600 -5700 -1500 Weight 244 lb 14.4 oz 238 lb 11.2 oz 241 lb 1.6 oz 247 lb 6 oz General: ambulating in room in no acute distress CVS:S1S2 regular Chest: Good air entry bilaterally, no rales or wheezing Abdomen: soft, obese, NT Extremities:improved pedal edema 1+ pitting Home Medication List Medication Instructions Recorded Confirmed Type Escitalopram Oxalate [Lexapro -] 20 mg PO DAILY 09/14/15 04/01/17 History Olanzapine [Zyprexa -] 10 mg PO BID 09/14/15 04/01/17 History Amlodipine Besylate [Norvasc -] 10 mg PO DAILY 02/25/16 04/01/17 History Carvedilol [Coreg -] 12.5 mg PO BID 02/25/16 04/01/17 History Hydralazine HCl [Apresoline -] 50 mg PO TID 02/25/16 04/01/17 History Atorvastatin Ca [Lipitor] 40 mg PO DAILY 04/01/17 04/01/17 History Active Medications Generic Name Dose Route Start Last Admin Trade Name Freq PRN Reason Stop Dose Admin Albuterol Sulfate 1 amp 04/02/17 16:29 Ventolin 0.083% Nebulizer Soln - NEB Q4H PRN SHORT OF BREATH/WHEEZING Albuterol/Ipratropium 1 amp 04/02/17 18:00 04/03/17 06:46 Duoneb - NEB 1 amp QIDR [facility] Administration Amlodipine Besylate 10 mg 04/03/17 10:00 Norvasc - PO DAILY [facility] Aspirin 81 mg 04/03/17 10:00 Ecotrin - PO DAILY [facility] Atorvastatin Calcium 40 mg 04/02/17 22:00 04/02/17 21:56 Lipitor - PO 40 mg HS [facility] Administration Carvedilol 12.5 mg 04/02/17 22:00 04/02/17 21:13 Coreg - PO 12.5 mg BID [facility] Administration Escitalopram Oxalate 20 mg 04/03/17 10:00 Lexapro - PO DAILY [facility] Ferrous Sulfate 325 mg 04/03/17 10:00 Feosol - PO DAILY [facility] Furosemide 40 mg 04/03/17 14:00 Lasix - PO BID@0600,1400 [facility] Heparin Sodium (Porcine) 5,000 unit 04/02/17 22:00 04/03/17 05:24 Heparin - SQ 5,000 unit TID [facility] Administration Hydralazine HCl 50 mg 04/02/17 22:00 04/03/17 05:24 Apresoline - PO 50 mg TID [facility] Administration Lisinopril 5 mg 04/03/17 10:00 Prinivil PO DAILY [facility] Olanzapine 10 mg 04/02/17 22:00 04/02/17 21:14 Zyprexa - PO 10 mg BID [facility] Administration Prednisone 60 mg 04/03/17 10:00 Deltasone - PO DAILY [facility] Laboratory Results - last 24 hr 04/03/17 04/03/17 06:30 06:30 WBC 6.7 RBC 3.70 Hgb 8.5 L Hct 28.3 L MCV 76.4 L MCH 23.1 L MCHC 30.2 L RDW 19.6 H Plt Count 172 MPV 6.8 L Neutrophils % 84.3 H Lymphocytes % 9.1 D Monocytes % 6.2 D Eosinophils % 0.0 Basophils % 0.4 D Sodium 139 Potassium 3.6 Chloride 97 L Carbon Dioxide 34 H Anion Gap 8 BUN 39 H D Creatinine 1.4 H D Creat Clearance w eGFR 38.10 Random Glucose 156 H Calcium 8.5 Phosphorus 3.2 Magnesium 2.1 Total Bilirubin 0.3 D AST 8 L ALT 25 Alkaline Phosphatase 108 D Total Protein 7.0 Albumin 3.1 L Microbiology 03/31/17 16:15 Blood - Peripheral Venous Blood Culture - Preliminary NO GROWTH OBTAINED AFTER 48 HOURS, INCUBATION TO CONTINUE FOR 3 DAYS. 03/31/17 16:15 Blood - Peripheral Venous Blood Culture - Preliminary NO GROWTH OBTAINED AFTER 48 HOURS, INCUBATION TO CONTINUE FOR 3 DAYS. 03/31/17 15:24 Urine - Urine Hickman Urine Culture - Final NO GROWTH OBTAINED ASSESSMENT AND PLAN: 61 yof with morbid obesity, COPD, CKD ?stage III (Last creatinine in 11/2016 1.1) , bipolar, NIDDM, recently admitted for hypoxic/hypercarbic respiratory failure secondary to CHF/COPD, found down on floor lethargic, found with positive benzos , borderline elevated carboxyHb, and acute hypoxic/hypercarbic respiratory failure. -Acute hypoxic/hypercarbic respiratory failure -Acute diastolic Heart failure exacerbation -Acute COPD exacerbation ?Unwitnessed fall -AMS, suspect encephalopathy multifactorial from benzo use (not home med or given in ED, ?received on recent admit), hypoxia, hypercarbia -?Benzo use -Morbid obesity -NIDDM -bipolar disorder Plan: Continues to diurese, off Bipap. Taper oxygen as tolerated. BUN/Cr rising, hold lasix today, start 40 mg daily in AM. Monitor renal function. Strict I/Os and daily weights. Transition to oral steroids. Patient reports being on vicodin at home and xanax, will confirm with [facility] in AM. Drug screen neg for opiates. Also reports unable to fill her lasix and prednisone after her last d.c Suspect sedative use with non compliance with recent dc meds contributory to her current picture. Will hold sedatives, avoid narcotics for now. Call pharmacy to retrieve details on xanax, vicodin and additional sedative meds. Hold antibiotics trauma w/u neg in ED. resume zyprexa and lexapro as mental status stable. Continue coreg/hydralazine/lisinopril Continue statin DVTPPX dispo pending improvement in respiratory status. PT eval Pre and post ambulatory oxygen, PT eval, dispo planning pending above. Anticipate d/c in 24 hours as arranged Plan discussed with patient in detail, all questions answered.
[2017-04-03] MEDS ORDERED: PT OWN MED DRAWER 7, Y5N ONE ×3 (09:51→23:11)
[2017-04-03] MEDS: FERROUS SO4 325 MG TABLET (FP) PO SCH (09:54)
[2017-04-03] MEDS: ESCITALOPRAM OXALATE 20 MG TABLET (FP) PO SCH (09:54)
[2017-04-03] MEDS: LISINOPRIL 5 MG TABLET (FP) PO SCH (09:55)
[2017-04-03] MEDS: CARVEDILOL 12.5 MG TABLET (FP) PO SCH ×2 (09:55→21:43)
[2017-04-03] MEDS: amLODIPine BESYLATE 10 MG TABLET (FP) PO SCH (09:55)
[2017-04-03] MEDS: OLANZapine 10 MG TABLET PO SCH ×2 (09:55→21:42)
[2017-04-03] MEDS: ASPIRIN COATED 81 MG TABLET.EC PO SCH (09:55)
[2017-04-03] MEDS ORDERED: FUROSEMIDE 40 MG/4 ML INJECTABLE VIAL IVPUSH SCH (10:00)
[2017-04-03] MEDS ORDERED: predniSONE 20 MG TABLET (UD) PO SCH ×2 (10:00→11:14)
[2017-04-03] MEDS ORDERED: oxyCODONE HCL 5 MG TABLET PO ONE ×2 (10:30→14:45)
[2017-04-03] MEDS ORDERED: ACETAMINOPHEN 325 MG TABLET (FP) PO PRN (10:30)
--- NOTE | 2017-04-03 10:32 | PN ---
Progress Note (short form) - Note Progress Note: PULMONARY Denies shortness of breath or chest pain. Minimal cough, no wheezing. Last Vital Signs Temp Pulse Resp BP Pulse Ox 97.6 F 104 H 16 120/75 95 04/02/17 14:00 04/03/17 10:22 04/02/17 16:00 04/02/17 16:00 04/03/17 10:22 Gen: NAD in chair Heart: RRR Lung: distant breath sounds, no wheezes Abd: soft, nontender Ext: no edema CBC, BMP 04/03/17 06:30 04/03/17 06:30 Active Medications Acetaminophen (Tylenol -) 650 mg PO Q4H PRN PRN Reason: FEVER OR PAIN Albuterol Sulfate (Ventolin 0.083% Nebulizer Soln -) 1 amp NEB Q4H PRN PRN Reason: SHORT OF BREATH/WHEEZING Albuterol/Ipratropium (Duoneb -) 1 amp NEB QIDR [facility] Last Admin: 04/03/17 06:46 Dose: 1 amp Amlodipine Besylate (Norvasc -) 10 mg PO DAILY [facility] Last Admin: 04/03/17 09:55 Dose: 10 mg Aspirin (Ecotrin -) 81 mg PO DAILY [facility] Last Admin: 04/03/17 09:55 Dose: 81 mg Atorvastatin Calcium (Lipitor -) 40 mg PO HS [facility] Last Admin: 04/02/17 21:56 Dose: 40 mg Carvedilol (Coreg -) 12.5 mg PO BID [facility] Last Admin: 04/03/17 09:55 Dose: 12.5 mg Escitalopram Oxalate (Lexapro -) 20 mg PO DAILY [facility] Last Admin: 04/03/17 09:54 Dose: 20 mg Ferrous Sulfate (Feosol -) 325 mg PO DAILY [facility] Last Admin: 04/03/17 09:54 Dose: 325 mg Furosemide (Lasix -) 40 mg PO BID@0600,1400 [facility] Heparin Sodium (Porcine) (Heparin -) 5,000 unit SQ TID [facility] Last Admin: 04/03/17 05:24 Dose: 5,000 unit Hydralazine HCl (Apresoline -) 50 mg PO TID [facility] Last Admin: 04/03/17 05:24 Dose: 50 mg Lisinopril (Prinivil) 5 mg PO DAILY [facility] Last Admin: 04/03/17 09:55 Dose: 5 mg Olanzapine (Zyprexa -) 10 mg PO BID [facility] Last Admin: 04/03/17 09:55 Dose: 10 mg Oxycodone HCl (Roxicodone -) 5 mg PO ONCE ONE Stop: 04/03/17 10:31 Prednisone (Deltasone -) 60 mg PO DAILY [facility] Last Admin: 04/03/17 09:54 Dose: 60 mg A/P Acute on Chronic Hypoxic and Hypercapneic Respiratory Failure improving Altered Mental Status ?Benzo overdose Acute COPD Exacerbation HTN DM Hep C Schizophrenia/Bipolar Disorder - can change steroids to PO prednisone 40mg daily and taper by 10mg q3days until off - inhaled bronchodilators - continue lasix - monitor urine output, creatinine - DVT prophylaxis - check ambulatory SpO2 on room air to assess for home O2
[2017-04-03] MEDS ORDERED: FUROSEMIDE 40 MG TABLET (FP) PO SCH (14:00)
--- NOTE | 2017-04-03 14:57 | DS ---
Physical Exam: HOSPITAL COURSE: Date of Admission:03/31/17 61 year old female presented to the hospital after being discharged just 2 days prior for acute hypoxic respiratory failure with another episode of acute respiratory failure. Patient was given Bipap, placed on solumedrol, given lasix , and given duonebs PRN. Patient clinically improved after 2 days and her ABGs returned to normal quickly, and she was able to be transitioned to PO prednisone. Patient had a pre and post test which revealed her need for 2L nasal cannula at home. Patient was discharged on 04/03/17 with a steroid taper, a walker, and instructions to follow up with her primary care physician, and Dr. Joaquin the windows phone developer who saw her during her previous admission. Date of Discharge: 04/03/17 Minutes to complete discharge: 30 <Raghu Gonzalez - Last Filed: 04/03/17 14:58> Physical Exam: SUBJECTIVE: Patient seen and examined OBJECTIVE: Vital Signs Period Temp Pulse Resp BP Sys/Osei Pulse Ox Last 24 Hr 98.2 F 70-104 16-18 128/62 95-100 PHYSICAL EXAM GENERAL: The patient is awake, alert, and fully oriented, in no acute distress. HEAD: Normal with no signs of trauma. EYES: PERRL, extraocular movements intact, sclera anicteric, conjunctiva clear. ENT: Ears normal, nares patent, oropharynx clear without exudates, moist mucous membranes. NECK: Trachea midline, full range of motion, supple. LUNGS: Breath sounds equal, clear to auscultation bilaterally, no wheezes, no crackles, no accessory muscle use. HEART: Regular rate and rhythm, S1, S2 without murmur, rub or gallop. ABDOMEN: Soft, nontender, nondistended, normoactive bowel sounds, no guarding, no rebound, no hepatosplenomegaly, no masses. EXTREMITIES: 2+ pulses, warm, well-perfused, no edema. NEUROLOGICAL: Cranial nerves II through XII grossly intact. Normal speech, gait not observed. PSYCH: Normal mood, normal affect. SKIN: Warm, dry, normal turgor, no rashes or lesions noted. LABS Laboratory Results - last 24 hr 04/03/17 04/03/17 06:30 06:30 WBC 6.7 RBC 3.70 Hgb 8.5 L Hct 28.3 L MCV 76.4 L MCH 23.1 L MCHC 30.2 L RDW 19.6 H Plt Count 172 MPV 6.8 L Neutrophils % 84.3 H Lymphocytes % 9.1 D Monocytes % 6.2 D Eosinophils % 0.0 Basophils % 0.4 D Sodium 139 Potassium 3.6 Chloride 97 L Carbon Dioxide 34 H Anion Gap 8 BUN 39 H D Creatinine 1.4 H D Creat Clearance w eGFR 38.10 Random Glucose 156 H Calcium 8.5 Phosphorus 3.2 Magnesium 2.1 Total Bilirubin 0.3 D AST 8 L ALT 25 Alkaline Phosphatase 108 D Total Protein 7.0 Albumin 3.1 L HOSPITAL COURSE: Date of Admission:03/31/17 Date of Discharge: 04/03/17 patient's drug screen was noted positive for benzos. On interview, patient reported being on xanax and vicodin. Her pharmacy was contacted and she was noted on vicodin prn but no recent xanax prescription. The sedatives could have contributed to her recurrent respiratory failure. Opioids and benzos were held during her stay and patient counseled on avoid sedating medications, to take the medications only as instructed and follow up with her doctor. <Venkata Agosto - Last Filed: 04/03/17 18:18> Discharge Summary Reason For Visit: ACUTE RESPIRATORY FAILURE HYPOXIA Current Active Problems COPD exacerbation (Acute) - Home Medications Comprehensive Discharge Medication List: Ambulatory Orders Escitalopram Oxalate [Lexapro -] 20 mg PO DAILY 09/14/15 Olanzapine [Zyprexa -] 10 mg PO BID 09/14/15 Aspirin Coated [Ecotrin -] 81 mg PO DAILY #30 tablet.ec 09/16/15 Amlodipine Besylate [Norvasc -] 10 mg PO DAILY 02/25/16 Carvedilol [Coreg -] 12.5 mg PO BID 02/25/16 Hydralazine HCl [Apresoline -] 50 mg PO TID 02/25/16 Albuterol Sulfate Inhaler - [Ventolin HFA Inhaler -] 2 inh PO Q4H PRN #1 inh Ferrous Sulfate [Feosol] 325 mg PO DAILY #14 ud 03/29/17 Furosemide [Lasix] 40 mg PO DAILY #14 tablet 03/29/17 Lisinopril [Prinivil] 5 mg PO DAILY #14 tablet 03/29/17 Atorvastatin Ca [Lipitor] 40 mg PO DAILY 04/01/17 Miscellaneous Drug Not in Syst 1 each AD DAILY #1 each 04/03/17 Miscellaneous Drug Not in Syst 1 each AD DAILY #1 each 04/03/17 Miscellaneous Drug Not in Syst 1 each AD DAILY #1 each 04/03/17 Miscellaneous Drug Not in Syst 1 each AD DAILY PRN #1 each 04/03/17 Prednisone See Taper PO DAILY #30 tablet 04/03/17 <Raghu Gonzalez - Last Filed: 04/03/17 14:58> Current Active Problems COPD exacerbation (Acute) - Home Medications Comprehensive Discharge Medication List: Ambulatory Orders Escitalopram Oxalate [Lexapro -] 20 mg PO DAILY 09/14/15 Olanzapine [Zyprexa -] 10 mg PO BID 09/14/15 Aspirin Coated [Ecotrin -] 81 mg PO DAILY #30 tablet.ec 09/16/15 Amlodipine Besylate [Norvasc -] 10 mg PO DAILY 02/25/16 Carvedilol [Coreg -] 12.5 mg PO BID 02/25/16 Hydralazine HCl [Apresoline -] 50 mg PO TID 02/25/16 Albuterol Sulfate Inhaler - [Ventolin HFA Inhaler -] 2 inh PO Q4H PRN #1 inh Ferrous Sulfate [Feosol] 325 mg PO DAILY #14 ud 03/29/17 Furosemide [Lasix] 40 mg PO DAILY #14 tablet 03/29/17 Lisinopril [Prinivil] 5 mg PO DAILY #14 tablet 03/29/17 Atorvastatin Ca [Lipitor] 40 mg PO DAILY 04/01/17 Miscellaneous Drug Not in Syst 1 each AD DAILY #1 each 04/03/17 Miscellaneous Drug Not in Syst 1 each AD DAILY #1 each 04/03/17 Miscellaneous Drug Not in Syst 1 each AD DAILY #1 each 04/03/17 Miscellaneous Drug Not in Syst 1 each AD DAILY PRN #1 each 04/03/17 Prednisone See Taper PO DAILY #30 tablet 04/03/17 <Venkata Agosto - Last Filed: 04/03/17 18:18> Condition: Stable - Instructions Diet, Activity, Other Instructions: You were treated in the hospital for acute respiratory failure. Medical Recommendations: 1. Make an appointment to see your primary care physician within 1 week of discharge. If you don't have a primary care physician, please make an appointment with me within 1 week: Dr. Raghu Gonzalez D.O. [address] [place] [address] 2. Make an appointment with the [employer] Dr. Joaquin within 2 weeks of discharge. 3. Check your weights daily and notify doctor if weight gain > 3 lbs in 2 days. Also notify your doctor if you feel dizziness or decreased urination or new concerns. 4. Advise that your potassium level be monitored with your doctor while on lasix. BMP (blood test for kidneys and potassium level) in 1 week with your doctor. Medicines to Take at Home -Continue your home dose of prednisone on a tapering dose: 1. Prednisone 40mg by mouth for 3 days 2. Prednisone 30mg by mouth for 3 days 3. Prednisone 20mg by mouth for 3 days 4. Prednisone 10mg by mouth for 3 days 5. Stop taking the prednisone -Continue Lasix 40mg by mouth once a day starting tomorrow, which will help you remove excess fluid from your legs and lungs. You need to follow with the general purchasing agent for recommendations about continuing this medication. -Continue Lisinopril 5mg once a day -Make sure to purchase a Pill Box that will help your organize your medications You will be prescribed oxygen 2L nasal cannula to use at home as needed. Use the oxygen when moving or exerting yourself as needed and anticipate that you will be able to be tapered off the same over next few days, follow up with your doctor. DO NOT TAKE ANY XANAX (OR ANY MEDICATIONS THAT ARE NOT PRESCRIBED BY YOUR DOCTOR ) OR VICODIN till next seen by your doctor. Continue your lexapro and zyprexa as from before. If you experience shortness of breath, please return to the emergency room immediately. Referrals: Villa Del Rio MD [Staff Physician] - Kan Joaquin MD [Staff Physician] - Disposition: VNS/HOME HEALTH CARE This patient is new to me today: No Emergency Visit: No Critical Care patient: No - Discharge Referral Referred to [facility] No <Raghu Gonzalez - Last Filed: 04/03/17 14:58>
[2017-04-03] MEDS: ATORVASTATIN CA 40 MG TABLET (FP) PO SCH (21:42)
[2017-04-04] MEDS: hydrALAZINE HCL 50 MG TABLET (FP) PO SCH (06:17)
[2017-04-04] MEDS: HEPARIN NA (PORCINE) 5,000 UNITS/ML 1ML VIAL SQ SCH (06:17)
[2017-04-04] MEDS: ALBUTEROL SO4 2.5/IPRATROPIUM 0.5 INH SOL 3 ML VIAL.NEB. NEB SCH ×2 (06:36→11:05)
[2017-04-04] MEDS ORDERED: ACETAMINOPHEN 325 MG TABLET (FP) PO ONE (08:03)
[2017-04-04] MEDS ORDERED: oxyCODONE HCL 5 MG TABLET PO ONE (08:15)
[2017-04-04] MEDS ORDERED: FUROSEMIDE 40 MG TABLET (FP) PO SCH (10:00)
[2017-04-04] MEDS ORDERED: PT OWN MED DRAWER 7, Y5N ONE (10:17)
[2017-04-04] MEDS: CARVEDILOL 12.5 MG TABLET (FP) PO SCH (10:18)
[2017-04-04] MEDS: FERROUS SO4 325 MG TABLET (FP) PO SCH (10:18)
[2017-04-04] MEDS: amLODIPine BESYLATE 10 MG TABLET (FP) PO SCH (10:18)
[2017-04-04] MEDS: OLANZapine 10 MG TABLET PO SCH (10:19)
[2017-04-04] MEDS: ESCITALOPRAM OXALATE 20 MG TABLET (FP) PO SCH (10:19)
[2017-04-04] MEDS: ASPIRIN COATED 81 MG TABLET.EC PO SCH (10:19)
[2017-04-04] MEDS: LISINOPRIL 5 MG TABLET (FP) PO SCH (10:19)
[2017-04-04 10:49] LABS: MCH 22.8 pg (25.7-33.7); MCHC 29.7 g/dl (32.0-36.0); MEAN CELL VOLUME 76.8 fl (80-96); MEAN PLT VOLUME 6.7 fl (7.5-11.1); PLATELET COUNT 171 K/MM3 (134-434); RDW 19.4 % (11.6-15.6); WHITE BLOOD COUNT 6.7 K/mm3 (4.0-10.0)
--- NOTE | 2017-04-04 11:12 | PN ---
Progress Note (short form) - Note Progress Note: PULMONARY Denies shortness of breath or chest pain. Minimal cough, no wheezing. Last Vital Signs Temp Pulse Resp BP Pulse Ox 98.2 F 74 20 118/56 100 04/04/17 07:10 04/04/17 07:10 04/04/17 07:10 04/04/17 07:10 04/03/17 21:00 Gen: NAD in chair Heart: RRR Lung: distant breath sounds, no wheezes Abd: soft, nontender Ext: no edema CBC, BMP 04/04/17 10:30 Active Medications Acetaminophen (Tylenol -) 650 mg PO Q4H PRN PRN Reason: FEVER OR PAIN Albuterol Sulfate (Ventolin 0.083% Nebulizer Soln -) 1 amp NEB Q4H PRN PRN Reason: SHORT OF BREATH/WHEEZING Albuterol/Ipratropium (Duoneb -) 1 amp NEB QIDR [facility] Last Admin: 04/04/17 06:36 Dose: 1 amp Amlodipine Besylate (Norvasc -) 10 mg PO DAILY [facility] Last Admin: 04/04/17 10:18 Dose: 10 mg Aspirin (Ecotrin -) 81 mg PO DAILY [facility] Last Admin: 04/04/17 10:19 Dose: 81 mg Atorvastatin Calcium (Lipitor -) 40 mg PO HS [facility] Last Admin: 04/03/17 21:42 Dose: 40 mg Carvedilol (Coreg -) 12.5 mg PO BID [facility] Last Admin: 04/04/17 10:18 Dose: 12.5 mg Escitalopram Oxalate (Lexapro -) 20 mg PO DAILY [facility] Last Admin: 04/04/17 10:19 Dose: 20 mg Ferrous Sulfate (Feosol -) 325 mg PO DAILY [facility] Last Admin: 04/04/17 10:18 Dose: 325 mg Furosemide (Lasix -) 40 mg PO DAILY [facility] Heparin Sodium (Porcine) (Heparin -) 5,000 unit SQ TID [facility] Last Admin: 04/04/17 06:17 Dose: 5,000 unit Hydralazine HCl (Apresoline -) 50 mg PO TID [facility] Last Admin: 04/04/17 06:17 Dose: 50 mg Lisinopril (Prinivil) 5 mg PO DAILY [facility] Last Admin: 04/04/17 10:19 Dose: 5 mg Olanzapine (Zyprexa -) 10 mg PO BID [facility] Last Admin: 04/04/17 10:19 Dose: 10 mg Prednisone (Deltasone -) 40 mg PO DAILY [facility] Last Admin: 04/04/17 10:19 Dose: 40 mg A/P Acute on Chronic Hypoxic and Hypercapneic Respiratory Failure improving Altered Mental Status ?Benzo overdose Acute COPD Exacerbation HTN DM Hep C Schizophrenia/Bipolar Disorder - prednisone taper as outpt - inhaled bronchodilators - continue lasix - monitor urine output, creatinine - DVT prophylaxis - d/c planning, awaiting home O2
[2017-04-04 11:15] LABS: ANION GAP 7 (8-16); CALCIUM 8.2 mg/dL (8.5-10.1); CO2 33 mmol/L (21-32); CREATININE 1.1 mg/dL (0.55-1.02); GLUCOSE,RANDOM 110 mg/dL (74-106)
[2017-04-04 11:31] VITALS: PULSE 68
[2017-04-04 13:16] VITALS: BP 132/84; TEMP 98.3
--- NOTE | 2017-04-04 15:03 | PN ---
Teaching Attending Note Name of Resident: Raghu Gonzalez ATTENDING PHYSICIAN STATEMENT I saw and evaluated the patient. I reviewed the resident's note and discussed the case with the resident. I agree with the resident's findings and plan as documented. SUBJECTIVE:asymptomatic. denies CP, SOB, fever, chills, N/v/C/D. requesting for podiatry to clip toenails as she missed her appt OBJECTIVE: Last Vital Signs Temp Pulse Resp BP Pulse Ox 98.3 F 68 20 132/84 100 04/04/17 10:00 04/04/17 11:30 04/04/17 10:00 04/04/17 10:00 04/04/17 11:30 General NAD Lungs mild expiratory wheezing., good lung expansion ASSESSMENT AND PLAN: 61 yo F with morbid obesity, COPD, CKD ?stage III (Last creatinine in 11/2016 1.1 ), bipolar, NIDDM, recently admitted for hypoxic/hypercarbic respiratory failure secondary to CHF/COPD, found down on floor lethargic, found with positive benzos, borderline elevated carboxyHb, and acute hypoxic/hypercarbic respiratory failure. 1. Acute hypoxic/hypercarbic respiratory failure- due to COPD exacerbation. clinically improved. on prednsione. on slow taper qualified for home O2. awaiting for home o2 delivery. 2. Acute on CKD- pre-renal. now resolved. at baseline 3. iron def anemia and anemia of chornic disease- hgb stable. no signs of bleeding. no indication for txn. cont iron supplement 4. Toenail- podiatry referral for toe nail clipping 5. morbid obesity 6. DM- controlled 7. d/c home today once home O2 is secured. counseled on importance of medication compliance and follow up
--- NOTE | 2017-04-04 19:11 | PN ---
Physical Exam: SUBJECTIVE: Patient seen and examined at bedside. Denies any current complaints. No SOB. OBJECTIVE: Vital Signs Period Temp Pulse Resp BP Sys/Osei Pulse Ox Last 24 Hr 97.8 F-98.3 F 68-74 18-20 118-146/56-84 100-100 GENERAL: The patient is awake, alert, and fully oriented, in no acute distress. HEAD: Normal with no signs of trauma. NECK: Trachea midline, full range of motion, supple. LUNGS: Breath sounds equal, clear to auscultation bilaterally, no wheezes, no crackles, no accessory muscle use. HEART: Regular rate and rhythm, S1, S2, systolic murmur noted on exam, no rubs or gallops. ABDOMEN: Obese, soft, nontender, nondistended, normoactive bowel sounds, no guarding, no rebound, no hepatosplenomegaly, no masses. EXTREMITIES: 2+ pulses, warm, well-perfused, 1+ pitting edema NEUROLOGICAL: Cranial nerves II through XII grossly intact. Normal speech, gait not observed. PSYCH: Normal mood, normal affect. SKIN: Warm, dry, normal turgor, no rashes or lesions noted Laboratory Results - last 24 hr 04/04/17 04/04/17 10:30 10:30 WBC 6.7 RBC 3.80 Hgb 8.7 L Hct 29.2 L MCV 76.8 L MCH 22.8 L MCHC 29.7 L RDW 19.4 H Plt Count 171 MPV 6.7 L Sodium 139 Potassium 3.1 L Chloride 99 Carbon Dioxide 33 H Anion Gap 7 L BUN 32 H Creatinine 1.1 H D Random Glucose 110 H D Calcium 8.2 L ASSESSMENT/PLAN: 61 year old female with a past medical history of CHF, COPD, HTN, HLD, DM, hepatitis C, CKD, schizophrenia/bipolar, is readmitted to the hospital after being discharged 2 days ago for acute respiratory failure. #Acute Respiratory Failure 2/2 CHF exacerbation: improved -patient initially treated on BiPap and ABG improved -continue PO prednisone 40mg QD; can send home on taper -continue duonebs PRN -continue ventolin -monitor O2 sats -urosemide to 40mg PO daily -pre and post test -strict I's/O's #Hypertension: BP stable -continue lisinopril 5mg PO QD -continue carvedilol 12.5mg PO BID -continue hydralazine 50mg PO TID #Diabetes Mellitus: -continue blood glucose monitoring -Sliding scale insulin #Coronary artery disease: -continue ASA 81mg -continue atorvastatin 40mg QD #Schizophrenia/Bipolar: -continue escitalopram -continue olanzapine #Anemia: stable -continue ferrous sulfate #FEN No standing fluids Replete electrolytes as necessary Sodium/Diabetic diet #Prophylaxis Heparin 5000 subQ TID No GI prophylaxis indicated #Disposition DC today on oral lasix/prednisone Visit type - Emergency Visit Emergency Visit: No - New Patient This patient is new to me today: No - Critical Care Critical Care patient: No
== END 2017-04-04 13:23 | disposition home health service (06) | DRG 140 ==
LOC: JER 14:22 → JERBED 18:00 → JICU 21:11 → J8W 04-02 17:35
PROVIDERS: ADMIT Internal Medicine; ATTEND Internal Medicine
PROC: 5A09357 Assistance with Respiratory Ventilation, Less than 24 Consecutive Hours, Continuous Positive Airway Pressure (ICD-10-PCS; principal; 2017-03-31)
DX: J44.1 Chronic obstructive pulmonary disease with (acute) exacerbation (principal); J96.01 Acute respiratory failure with hypoxia; J96.02 Acute respiratory failure with hypercapnia; I13.0 Hypertensive heart and chronic kidney disease with heart failure and stage 1 through stage 4 chronic kidney disease, or unspecified chronic kidney disease; N18.9 Chronic kidney disease, unspecified; N17.9 Acute kidney failure, unspecified; I50.33 Acute on chronic diastolic (congestive) heart failure; E11.22 Type 2 diabetes mellitus with diabetic chronic kidney disease; I25.10 Atherosclerotic heart disease of native coronary artery without angina pectoris; G92 Toxic encephalopathy; F31.89 Other bipolar disorder; I25.2 Old myocardial infarction; F17.200 Nicotine dependence, unspecified, uncomplicated; F41.8 Other specified anxiety disorders; F20.89 Other schizophrenia; D63.8 Anemia in other chronic diseases classified elsewhere; D50.8 Other iron deficiency anemias; E78.5 Hyperlipidemia, unspecified; W18.39XA Other fall on same level, initial encounter; E66.01 Morbid (severe) obesity due to excess calories; Z68.42 Body mass index [BMI] 45.0-49.9, adult; T42.4X1A Poisoning by benzodiazepines, accidental (unintentional), initial encounter; Y93.89 Activity, other specified; Y92.098 Other place in other non-institutional residence as the place of occurrence of the external cause; Z86.73 Personal history of transient ischemic attack (TIA), and cerebral infarction without residual deficits; Z88.0 Allergy status to penicillin; Z99.81 Dependence on supplemental oxygen
CPT/HCPCS: 36415; 36600; 70450-TC; 71010-TC; 72125-TC; 80048; 80053; 80307; 82375; 82550; 82803; 83050; 83605; 83735; 83880; 84100; 84443; 84484; 85025; 85027; 85730; 86850; 86900; 86901; 87040; 87086; 93005; 93010; 93970-TC; 94640; 94660; 94761; 97116-GP; 97161-GP; 99285-25; J1644

== ENCOUNTER 2017-04-13 14:07 | Inpatient (IN) | payer OTHER ==
[2017-04-13] MEDS ORDERED: methylPREDNISolone NA SUCC 125 MG/2 ML VIAL ONE (14:13)
[2017-04-13] MEDS ORDERED: ALBUTEROL SO4 2.5/IPRATROPIUM 0.5 INH SOL 3 ML VIAL.NEB. NEB ONE ×2 (14:13→14:51)
--- NOTE | 2017-04-13 14:44 | PDOC ---
Attending Attestation - Resident Resident Name: Isreal Peres - HPI HPI: 04/13/17 15:08 Pt presents to the ED complaining of the acute onset of shortness of breath and wheezing that started after eating at a [employer]. Patient had a recent ICU admission for the same issue. Denies fever or chest pain. Denies nausea or vomiting. - Physicial Exam PE: 04/13/17 16:16 Agree with resident exam. Patient wheezing on arrival with tachypneia, speaking in 2-3 word sentences. Greatly improved on bipap. - Medical Decision Making 04/13/17 16:17 Pt presents to the Ed complaining of shortness of breath and wheezing consistent with prior COPD exacerbations. initial concern for CHF exacerbation , but exam and labs are more consistent with COPD exacerbation. Patient feels improved on bipap, but is continuing to desaturate into the 80s when she takes the bipap off. Will admit to medicine.
--- NOTE | 2017-04-13 14:47 | PDOC ---
History of Present Illness - General Chief Complaint: Shortness of Breath Stated Complaint: DIFFICULTY BREATHING Time Seen by Provider: 04/13/17 14:33 - History of Present Illness Initial Comments: 04/13/17 15:03 The patient is a 61 year old female with a history of hypertension, hyperlipidemia, diabetes, COPD, CHF, hepatitis C, chronic renal insufficiency who presents for evaluation of respiratory distress. The patient was recently admit to the hospital for respiratory distress. She states that she was at a [employer] green party and eating a lot of different food. Since the green party today, she has been experiencing increased difficulty breathing prompting her to call ems to present to the ED. She presents on bipap. She denies any fevers, chills, chest pain, abdominal pain, or changes with urination or bowel movements. She notes lower extremity edema which is unchanged since her discharge from the hospital. Past History - Past Medical History Allergies/Adverse Reactions: Allergies Allergy/AdvReac Type Severity Reaction Status Date / Time ibuprofen [From Motrin IB] Allergy Verified 04/13/17 14:16 metformin Allergy Verified 04/13/17 14:16 Penicillins Allergy Verified 04/13/17 14:16 Home Medications: Ambulatory Orders Escitalopram Oxalate [Lexapro -] 20 mg PO DAILY 09/14/15 Olanzapine [Zyprexa -] 10 mg PO BID 09/14/15 Aspirin Coated [Ecotrin -] 81 mg PO DAILY #30 tablet.ec 09/16/15 Amlodipine Besylate [Norvasc -] 10 mg PO DAILY 02/25/16 Carvedilol [Coreg -] 12.5 mg PO BID 02/25/16 Hydralazine HCl [Apresoline -] 50 mg PO TID 02/25/16 Albuterol Sulfate Inhaler - [Ventolin HFA Inhaler -] 2 inh PO Q4H PRN #1 inh Ferrous Sulfate [Feosol] 325 mg PO DAILY #14 ud 03/29/17 Furosemide [Lasix] 40 mg PO DAILY #14 tablet 03/29/17 Lisinopril [Prinivil] 5 mg PO DAILY #14 tablet 03/29/17 Atorvastatin Ca [Lipitor] 40 mg PO DAILY 04/01/17 Prednisone See Taper PO DAILY #30 tablet 04/03/17 Anemia: No Asthma: No Cancer: No Cardiac Disorders: Yes CVA: Yes COPD: Yes CHF: No Dementia: No Diabetes: Yes GI Disorders: No Disorders: No HTN: Yes Hypercholesterolemia: Yes Liver Disease: Yes (HEPATITIS C) Psychiatric Problems: Yes Seizures: No Thyroid Disease: (chronic renaL INSUFF) Other medical history: intubated in past - Surgical History Abdominal Surgery: Yes Appendectomy: No Cardiac Surgery: No Cholecystectomy: No Lung Surgery: No Neurologic Surgery: No Orthopedic Surgery: No - Suicide/Smoking/Psychosocial Hx Smoking History: Current every day smoker Have you smoked in the past 12 months: Yes Number of Cigarettes Smoked Daily: 4 Information on smoking cessation initiated: No 'Breaking Loose' booklet given: 03/31/17 Hx Alcohol Use: No Drug/Substance Use Hx: No Substance Use Type: Alcohol Hx Substance Use Treatment: No Review of Systems - Review of Systems Comments:: 04/13/17 15:13 Constitutional: No fevers, chills, fatigue, malaise HEENT: No Rhinorrhea, nasal congestion, Cardiovascular: No chest pain, syncope, palpitations, lightheadedness Respiratory: SOB. No Cough, Hemoptysis, Gastrointestinal: No Abdominal pain, Nausea, Vomiting, Constipation, Diarrhea, Melena Genitourinary: No Dysuria, Frequency, Urgency, Hesitancy, Hematuria, Flank pain Musculoskeletal: No Myalgia, arthralgia Skin: No rashes, bruising, pallor Neurologic: No Headache, Dizziness, Numbness, Weakness, or Tingling Psychiatric: No Hallucinations. No SI or HI *Physical Exam - Vital Signs Last Vital Signs Temp Pulse Resp BP Pulse Ox 98.2 F 74 20 129/70 100 04/13/17 14:16 04/13/17 14:16 04/13/17 14:16 04/13/17 14:16 04/13/17 14:16 - Physical Exam Comments: 04/13/17 15:14 General Appearance: Nourished. In Respiratory Distress on BiPap HEENT: EOMI, ANNA. No Pharyngeal Erythema, Tonsillar Exudate, Tonsillar Erythema Neck: No Cervical Lymphadenopathy Respiratory/Chest: Normal Breath Sounds. Diffuse wheezing auscultation on exam with poor air movement Cardiovascular: Regular Rhythm, Regular Rate. No Murmur, Gallops, Rubs Gastrointestinal/Abdominal: Normal Bowel Sounds, Soft. No Guarding, Rebound, Tenderness Musculoskeletal: No CVA Tenderness Extremity: 3+ lower extremity pitting edema. Normal Capillary Refill Integumentary: Normal Color, Dry, Warm Neurologic: Fully Oriented, Alert, Normal Mood/Affect, Normal Response, ED Treatment Course - LABORATORY CBC & Chemistry Diagram: 04/13/17 15:00 04/13/17 15:00 Medical Decision Making - Medical Decision Making 04/13/17 15:16 The patient is a 61 year old female with a history of hypertension, hyperlipidemia, diabetes, COPD, CHF, hepatitis C, chronic renal insufficiency who presents for evaluation of respiratory distress. Differential includes but is not limited to: CHF exacerbation, COPD exacerbation, pneumonia, sepsis, infectious, metabolic derangement. Given the patient's symptoms of SOB after eating high salt foods at a green party, it is possible her symptoms are due to a chf exacerbation. However, given her physical exam, it is also possible there is a COPD exacerbation component to her symptoms. We will obtain a cbc, cmp, troponin, bnp, lactate, vbg, chest plain film, blood cultures, ua, urine cultures as part of a sepsis work up. We will treat the patient with duoneb and solumedrol and the patient is currently saturating 95% on Bipap. We will continue to monitor and reassess. 04/13/17 16:31 CBC is unchanged from previous, cmp is unchanged. Chest plain film is relatively unchanged from previous as preliminarily read by ER physician. Patient continues to desaturate to 80% on RA off BiPap. We believe that she requires admission for further management of her symptoms for a COPD exacerbation and given that she continues to desaturate off Bipap. 04/13/17 17:04 Discussed the case with the hospitalist team who accepted the patient for admission. *DC/Admit/Observation/Transfer Diagnosis at time of Disposition: COPD exacerbation, Acute respiratory failure with hypoxia and hypercapnia CHF (congestive heart failure) Qualifiers: Congestive heart failure type: unspecified congestive heart failure type Congestive heart failure chronicity: unspecified congestive heart failure chronicity Qualified Code(s): I50.9 - Heart failure, unspecified - Discharge Dispostion Condition at time of disposition: Guarded Admit: Yes - Referrals - Patient Instructions - Post Discharge Activity
[2017-04-13] MEDS ORDERED: methylPREDNISolone NA SUCC 125 MG/2 ML VIAL IVPUSH ONE (14:51)
[2017-04-13 15:05] LABS: VENOUS PC02 65.2 mmHg (38-52); VENOUS PH 7.27 (7.32-7.42); VENOUS PO2 54.6 mmHg (28-48)
[2017-04-13 15:18] LABS: BASO % 0.4 % (0-2.0); EOS % 0.6 % (0-4.5); HEMATOCRIT 27.4 % (32.4-45.2); HEMOGLOBIN 8.3 GM/dL (10.7-15.3); LYMPH % 8.7 % (8-40); MCHC 30.5 g/dl (32.0-36.0); MEAN CELL VOLUME 78.6 fl (80-96); MEAN PLT VOLUME 7.1 fl (7.5-11.1); MONO % 11.2 % (3.8-10.2); NEUT % 79.1 % (42.8-82.8); PLATELET COUNT 326 K/MM3 (134-434); RBC 3.48 M/mm3 (3.60-5.2); RDW 20.4 % (11.6-15.6); WHITE BLOOD COUNT 6.7 K/mm3 (4.0-10.0)
[2017-04-13 15:21] LABS: INR 1.04 (0.82-1.09); PROTHROMBIN TIME (PATIENT) 11.8 SEC (9.98-11.88)
[2017-04-13 15:23] LABS: ACTIVATED PTT 28.6 SECONDS (26.9-34.4)
[2017-04-13 15:42] LABS: URINE APPEARANCE CLEAR; URINE BILIRUBIN NEGATIVE (NEGATIVE); URINE BLOOD NEGATIVE (NEGATIVE); URINE COLOR YELLOW; URINE GLUCOSE (UA) NEGATIVE (NEGATIVE); URINE KETONE NEGATIVE (NEGATIVE); URINE LEUK ESTERASE NEGATIVE (NEGATIVE); URINE NITRITE NEGATIVE (NEGATIVE)
[2017-04-13 15:46] LABS: ALBUMIN 3.3 g/dl (3.4-5.0); ANION GAP 7 (8-16); BLOOD UREA NITROGEN 22 mg/dL (7-18); CALCIUM 8.4 mg/dL (8.5-10.1); CHLORIDE 99 mmol/L (98-107); CO2 29 mmol/L (21-32); CREATININE 1.2 mg/dL (0.55-1.02); GLUCOSE,RANDOM 190 mg/dL (74-106); POTASSIUM 4.6 mmol/L (3.5-5.1); SGOT/AST 24 U/L (15-37); SGPT/ALT 55 U/L (12-78); SODIUM 135 mmol/L (136-145)
[2017-04-13 15:47] LABS: ALK PHOS 130 U/L (45-117); BILIRUBIN,TOTAL 0.5 mg/dL (0.2-1.0)
[2017-04-13 15:53] LABS: URINE PROTEIN 1+ (NEGATIVE)
[2017-04-13 15:55] LABS: EPI CELLS RARE /HPF (FEW); URINE HYALINE CAST 5 /lpf; URINE MUCUS RARE
[2017-04-13] MEDS ORDERED: FUROSEMIDE 40 MG/4 ML INJECTABLE VIAL IVPUSH ONE (16:51)
[2017-04-13] MEDS ORDERED: FUROSEMIDE 40 MG/4 ML INJECTABLE VIAL ONE (17:20)
--- NOTE | 2017-04-13 17:35 | HP ---
CHIEF COMPLAINT: Shortness of breath HISTORY OF PRESENT ILLNESS: 61yo F with history of HTN, HLD, pre-diabetes (last A1C 6.2), COPD, diastolic CHF, Hepatitis C (not currently on treatment), and chronic renal insufficiency who presented to the ED with complaints of shortness of breath. Pt states that she was at a [employer] democr[employer] where she ate multiple courses of food that was admittedly salty. After eating she started to experience shortness of breath which increased prompting her to call EMS. She was previously here twice this month for the same complaints treated with BiPap, lasix, and steroids. In early March 2017 she was even intubated over the course of one day. Currently, pt is presenting on BiPap in ED still experiecing shortness of breath however it has improved slightly since initial presentation in the ED. Pt also noted associated lower extremity edema that she notes is increased, however unchanged from her last discharge despite the outpatient lasix therapy in addition to chronic cough. She states her cough continues to be nonproductive, however this time it feels more 'wet' compared to her chronic cough. Pt denies lightheadedness/dizziness, n/v, fevers/chills, headache, sore throat/rhinorrhea/other constitutional symptoms, CP/discomfort, palpitations, abdominal pain, difficulties urinating, diarrhea, and constipation. ER course was notable for: bipap, medrol, vbg, cxr, (1) BiPap initiation I 10:E 4:FiO2 40 (2) Solumedrol 125mg dose (3) VBG showing acidosis (4) CXR revealing slightly increased vascular congestion with blunting of L phrenic angle Recent Travel: Denies PAST MEDICAL HISTORY: HTN, HLD, pre-diabetic, COPD, diastolic CHF, Hepatitis C (not currently on treatment), and CKD stage III-IV, Bipolar/schizophrenia PAST SURGICAL HISTORY: Hysterectomy PAST SURGICAL HISTORY: Hysterectomy Social History: Smokin-10 cigarettes per day for "many years" Alcohol: Denies Drugs: Currently denies; previous admission known to abuse xanax Family History: Allergies ibuprofen [From Motrin IB] Allergy (Verified 04/13/17 14:16) metformin Allergy (Verified 04/13/17 14:16) Penicillins Allergy (Verified 04/13/17 14:16) HOME MEDICATIONS: Home Medications Medication Instructions Recorded Escitalopram Oxalate [Lexapro -] 20 mg PO DAILY 09/14/15 Olanzapine [Zyprexa -] 10 mg PO BID 09/14/15 Aspirin Coated [Ecotrin -] 81 mg PO DAILY #30 tablet.ec 09/16/15 Amlodipine Besylate [Norvasc -] 10 mg PO DAILY 02/25/16 Carvedilol [Coreg -] 12.5 mg PO BID 02/25/16 Hydralazine HCl [Apresoline -] 50 mg PO TID 02/25/16 Albuterol Sulfate Inhaler - 2 inh PO Q4H PRN #1 inh 11/20/16 [Ventolin HFA Inhaler -] Ferrous Sulfate [Feosol] 325 mg PO DAILY #14 ud 03/29/17 Furosemide [Lasix] 40 mg PO DAILY #14 tablet 03/29/17 Lisinopril [Prinivil] 5 mg PO DAILY #14 tablet 03/29/17 Atorvastatin Ca [Lipitor] 40 mg PO DAILY 04/01/17 Prednisone See Taper PO DAILY #30 tablet 04/03/17 REVIEW OF SYSTEMS CONSTITUTIONAL: Absent: fever, chills, diaphoresis, generalized weakness, malaise, loss of appetite, weight change HEENT: Absent: rhinorrhea, nasal congestion, throat pain, throat swelling, difficulty swallowing, mouth swelling, ear pain, eye pain, visual changes CARDIOVASCULAR: Present: peripheral edema Absent: chest pain, syncope, palpitations, irregular heart rate, lightheadedness , RESPIRATORY: Present: cough, shortness of breath, Absent: wheezing, stridor, hemoptysis GASTROINTESTINAL: Absent: abdominal pain, abdominal distension, nausea, vomiting, diarrhea, constipation, melena, hematochezia GENITOURINARY: Absent: dysuria, frequency, urgency, hesitancy, hematuria, flank pain, genital pain MUSCULOSKELETAL: Absent: myalgia, arthralgia, joint swelling, back pain, neck pain SKIN: Absent: rash, itching, pallor NEUROLOGIC: Absent: headache, focal weakness or paresthesias, dizziness, unsteady gait, mental status changes, bladder or bowel incontinence PSYCHIATRIC: Absent: anxiety, depression, PHYSICAL EXAMINATION Vital Signs - 24 hr 04/13/17 04/13/17 04/13/17 14:16 14:45 15:53 Temperature 98.2 F Pulse Rate 74 79 Pulse Rate [ Apical] Respiratory 20 Rate Blood Pressure 129/70 Blood Pressure [Left Arm] O2 Sat by Pulse 100 98 96 Oximetry (%) 04/13/17 16:08 Temperature Pulse Rate Pulse Rate [ 70 Apical] Respiratory 20 Rate Blood Pressure Blood Pressure 157/87 [Left Arm] O2 Sat by Pulse 97 Oximetry (%) GENERAL: Mild distress, on Bipap, Awake, alert, and fully oriented HEENT: AC/NT, No JVD, EOMI, PATRICE, moist mucosa with normal structures of mouth LUNGS: Rales noted diffusely with expiratory wheezing throughout. On BiPap (10/4 /40%) HEART: RRR, normal S1 and S2 without murmur. ABDOMEN: Soft, nontender, nondistended, normoactive bowel sounds, no guarding, no rebound No hepatomegaly MUSCULOSKELETAL: No CVA tenderness. EXTREMITIES: 2+ DP pulses, warm, cap refill <2sec, b/l 2+ pitting edema in lower extremities to knee NEUROLOGICAL: No facial asymmetry, EOMI, PATRICE, Normal speech, Gait not observed. Strength 5/5 for all four extremities. PSYCHIATRIC: Good eye contact. Appropriate mood and affect. SKIN: Warm, dry, no rashes or lesions noted Laboratory Results - last 24 hr 04/13/17 04/13/17 04/13/17 15:00 15:00 15:00 WBC 6.7 RBC 3.48 L Hgb 8.3 L Hct 27.4 L MCV 78.6 L MCH 24.0 L MCHC 30.5 L RDW 20.4 H Plt Count 326 D MPV 7.1 L Absolute Neuts (auto) 5.3 L Absolute Lymphs (auto) 0.6 L Absolute Monos (auto) 0.7 L Absolute Eos (auto) 0.0 Absolute Basos (auto) 0.0 L Neutrophils % 79.1 Lymphocytes % 8.7 Monocytes % 11.2 H D Eosinophils % 0.6 D Basophils % 0.4 PT with INR 11.80 INR 1.04 PTT (Actin FS) 28.6 VBG pH 7.27 L D POC VBG pCO2 65.2 H* D POC VBG pO2 54.6 H D Mixed VBG HCO3 29.1 H Sodium Potassium Chloride Carbon Dioxide Anion Gap BUN Creatinine Creat Clearance w eGFR Random Glucose Lactic Acid Calcium Total Bilirubin AST ALT Alkaline Phosphatase Creatine Kinase Troponin I B-Natriuretic Peptide Total Protein Albumin Urine Color Urine Appearance Urine pH Ur Specific [place] Urine Protein Urine Glucose (UA) Urine Ketones Urine Blood Urine Nitrite Urine Bilirubin Urine Urobilinogen 04/13/17 04/13/17 04/13/17 15:00 15:00 15:20 WBC RBC Hgb Hct MCV MCH MCHC RDW Plt Count MPV Absolute Neuts (auto) Absolute Lymphs (auto) Absolute Monos (auto) Absolute Eos (auto) Absolute Basos (auto) Neutrophils % Lymphocytes % Monocytes % Eosinophils % Basophils % PT with INR INR PTT (Actin FS) VBG pH POC VBG pCO2 POC VBG pO2 Mixed VBG HCO3 Sodium 135 L Potassium 4.6 D Chloride 99 Carbon Dioxide 29 Anion Gap 7 L BUN 22 H D Creatinine 1.2 H Creat Clearance w eGFR 45.52 Random Glucose 190 H D Lactic Acid 0.8 Calcium 8.4 L Total Bilirubin 0.5 D AST 24 D ALT 55 D Alkaline Phosphatase 130 H D Creatine Kinase 56 Troponin I < 0.02 B-Natriuretic Peptide 1276.60 H Total Protein 7.0 Albumin 3.3 L Urine Color Yellow Urine Appearance Clear Urine pH 5.0 Ur Specific [place] 1.019 Urine Protein 1+ H Urine Glucose (UA) Negative Urine Ketones Negative Urine Blood Negative Urine Nitrite Negative Urine Bilirubin Negative Urine Urobilinogen 2.0 H ASSESSMENT/PLAN: 1) Acute hypoxic, hypercapnic respiratory distress --Likely secondary to COPD with component of diastolic heart dysfunction -- Continue BiPap; 01/25/40% --Titrate SpO2 >90% --Duoneb q6h --Albuterol inhaler q4h PRN --Solumedrol 40mg IV qDaily --Repeat ABG after being on bipap with goal of normalizing CO2 retention and pH --Repeat CXR --Doubt PNA due to lack of infectious signs 2) Diastolic CHF --Echo previously done reveals: L systolic ventricular function normal with no regional wall abnormalities --Lasix 40mg IV qdaily --Strict I&O's --Hickman placed for accuracy --Daily weights --Continue BiPap as above --BNP 1276 (doubling of BNP compared with previous admissions) 3) HTN --Continue home medications: Norvasc 10mg qDaily Coreg 12.5mg PO BID Hydralazine 50mg TID PO Lisinopril 5mg qDaily PO --Monitor BP 4) Bipolar/Schizophrenia --Continues home medications Zyprea 10mg PO BID Lexapro 20mg qDaily PO 5) Microcytic anemia --Iron deficiency anemia --Continue iron supplementation 325mg 6) SANTO on CKD? --Cr 1.2 currently (base 0.9 04/01/17) --Will likely see improvement upon lasix due to cardiorenal syndrome --Trend BMP 7) Pre diabetes --A1C 6.2 recently --Continue diet and exercise --Outpatient follow-up FEN: Fluids: avoid IV fluids due to hypervolemic status Electrolyte abnormalities: None currently Nutrition: Sodium/Cholesterol/Diabetic diet PPX DVT - Heparin 5000U SQ TID Dispo: Admit to telemetry Code status: Full Code; discussed with pt Case discussed with Dr. Agosto and PGY-2 Raghu Reed DO - Internal Medicine PGY-1 Visit type - Emergency Visit Emergency Visit: Yes ED Registration Date: 04/13/17 Care time: The patient presented to the Emergency Department on the above date and was hospitalized for further evaluation of their emergent condition. - New Patient This patient is new to me today: Yes Date on this admission: 04/17/17 - Critical Care Critical Care patient: No
[2017-04-13] MEDS ORDERED: ALBUTEROL SO4 0.083% IH SOL 2.5 MG/3 ML VIAL.NEB. NEB PRN (17:46)
--- NOTE | 2017-04-13 17:57 | HP ---
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 Joaquin HISTORY OF PRESENT ILLNESS: Patient is a 61-year-old female presented to the ED with the chief complaint of shortness of breath. As per the patient, she started having mild SOB a few days ago associated with productive cough, producing whitish sputum. Today, she was at a [employer] republican where she had a variety of food. Then started having shortness of breath and came in to the ED. She also states that her breasts felt heavy. But denies chest pain, palpitation, abdominal pain, nausea or vomiting, fever, chills, rigors or sweating. Patient was recently admitted on 03/31/17 until 04/04/17 for acute hypoxic hypercapenic respiratory failure due to COPD. Upon discharge, patient reports she didn't visit Dr. Joaquin as recommended. However, she mentions she was compliant with her medications and currently now on prednisone taper 30mg. Has h /o intubation for COPD exacerbation. Patient mentions she has been experience urinary incontinence since few weeks. Denies urgency, frequency or dysuria. Bowel habit normal. Sleep/Appetite normal prior to illness. ER course was notable for: (1) Hypoxic, Afebrile, Hypertensive 157/87 mmHg, Microcytic anemia, creatinine 1.2 (2) CXR: Stable enlargement of the cardiomediastinal silhouette with mild to moderate pulmonary vascular congestion. (3) Bipap, solumedrol Recent Travel: None PAST MEDICAL HISTORY: Hypertension, Hyperlipidemia, Pre-diabetes, CAD, Hep C, CKD stage III-IV, COPD intubated in the past, bipolar/schizophrenia, active smoker PAST SURGICAL HISTORY: Hysterectomy Social History: Smoking: Smokes about 6 cigs/day Alcohol: Denies Drugs: Denies Family History: Non contributory Allergies ibuprofen [From Motrin IB] Allergy (Verified 04/13/17 14:16) metformin Allergy (Verified 04/13/17 14:16) Penicillins Allergy (Verified 04/13/17 14:16) HOME MEDICATIONS: Home Medications Medication Instructions Recorded Escitalopram Oxalate [Lexapro -] 20 mg PO DAILY 09/14/15 Olanzapine [Zyprexa -] 10 mg PO BID 09/14/15 Aspirin Coated [Ecotrin -] 81 mg PO DAILY #30 tablet.ec 09/16/15 Amlodipine Besylate [Norvasc -] 10 mg PO DAILY 02/25/16 Carvedilol [Coreg -] 12.5 mg PO BID 02/25/16 Hydralazine HCl [Apresoline -] 50 mg PO TID 02/25/16 Albuterol Sulfate Inhaler - 2 inh PO Q4H PRN #1 inh 11/20/16 [Ventolin HFA Inhaler -] Ferrous Sulfate [Feosol] 325 mg PO DAILY #14 ud 03/29/17 Furosemide [Lasix] 40 mg PO DAILY #14 tablet 03/29/17 Lisinopril [Prinivil] 5 mg PO DAILY #14 tablet 03/29/17 Atorvastatin Ca [Lipitor] 40 mg PO DAILY 04/01/17 Prednisone See Taper PO DAILY #30 tablet 04/03/17 REVIEW OF SYSTEMS CONSTITUTIONAL: Absent: fever, chills, diaphoresis, generalized weakness, malaise, loss of appetite, weight change HEENT: Absent: rhinorrhea, nasal congestion, throat pain, throat swelling, difficulty swallowing, mouth swelling, ear pain, eye pain, visual changes CARDIOVASCULAR: Absent: chest pain, syncope, palpitations, irregular heart rate, lightheadedness , peripheral edema RESPIRATORY: Present: cough, shortness of breath Absent: dyspnea with exertion, orthopnea, wheezing, stridor, hemoptysis GASTROINTESTINAL: Absent: abdominal pain, abdominal distension, nausea, vomiting, diarrhea, constipation, melena, hematochezia GENITOURINARY: Absent: dysuria, frequency, urgency, hesitancy, hematuria, flank pain, genital pain MUSCULOSKELETAL: Absent: myalgia, arthralgia, joint swelling, back pain, neck pain SKIN: Absent: rash, itching, pallor HEMATOLOGIC/IMMUNOLOGIC: Absent: easy bleeding, easy bruising, lymphadenopathy, frequent infections ENDOCRINE: Absent: unexplained weight gain, unexplained weight loss, heat intolerance, cold intolerance NEUROLOGIC: Absent: headache, focal weakness or paresthesias, dizziness, unsteady gait, seizure, mental status changes, bladder or bowel incontinence PSYCHIATRIC: Absent: anxiety, depression, suicidal or homicidal ideation, hallucinations. PHYSICAL EXAMINATION Vital Signs - 24 hr 04/13/17 04/13/17 04/13/17 14:16 14:45 15:53 Temperature 98.2 F Pulse Rate 74 79 Pulse Rate [ Apical] Respiratory 20 Rate Blood Pressure 129/70 Blood Pressure [Left Arm] O2 Sat by Pulse 100 98 96 Oximetry (%) 04/13/17 16:08 Temperature Pulse Rate Pulse Rate [ 70 Apical] Respiratory 20 Rate Blood Pressure Blood Pressure 157/87 [Left Arm] O2 Sat by Pulse 97 Oximetry (%) GENERAL: Patient is on Bipap, Awake, alert, and fully oriented, in mild respiratory distress. HEAD: Normal with no signs of trauma. EYES: EOM intact, no pallor or icterus. EARS, NOSE, THROAT: Ears normal. Moist mucous membranes. NECK: Supple, no JVD. LUNGS: B/L coarse breath sounds, scattered wheeze +. HEART: Regular rate and rhythm, normal S1 and S2 without murmur. ABDOMEN: Soft, nontender, not distended, normoactive bowel sounds, no guarding, no rebound, no masses. No hepatomegaly or splenomegaly. MUSCULOSKELETAL: Normal range of motion at all joints. No bony deformities or tenderness. No CVA tenderness. UPPER EXTREMITIES: 2+ pulses, warm, well-perfused. No cyanosis. No clubbing. No peripheral edema. LOWER EXTREMITIES: 2+ pulses, warm, well-perfused. No calf tenderness. B/L pitting peripheral edema ++. NEUROLOGICAL: No facial droop; Normal speech. Gait not observed. uncooperative for detailed neuro exam. PSYCHIATRIC: Good eye contact. Appropriate mood and affect. SKIN: Warm, dry, normal turgor, no rashes or lesions noted, normal capillary refill. Laboratory Results - last 24 hr 04/13/17 04/13/17 04/13/17 15:00 15:00 15:00 WBC 6.7 RBC 3.48 L Hgb 8.3 L Hct 27.4 L MCV 78.6 L MCH 24.0 L MCHC 30.5 L RDW 20.4 H Plt Count 326 D MPV 7.1 L Absolute Neuts (auto) 5.3 L Absolute Lymphs (auto) 0.6 L Absolute Monos (auto) 0.7 L Absolute Eos (auto) 0.0 Absolute Basos (auto) 0.0 L Neutrophils % 79.1 Lymphocytes % 8.7 Monocytes % 11.2 H D Eosinophils % 0.6 D Basophils % 0.4 PT with INR 11.80 INR 1.04 PTT (Actin FS) 28.6 VBG pH 7.27 L D POC VBG pCO2 65.2 H* D POC VBG pO2 54.6 H D Mixed VBG HCO3 29.1 H Sodium Potassium Chloride Carbon Dioxide Anion Gap BUN Creatinine Creat Clearance w eGFR Random Glucose Lactic Acid Calcium Total Bilirubin AST ALT Alkaline Phosphatase Creatine Kinase Troponin I B-Natriuretic Peptide Total Protein Albumin Urine Color Urine Appearance Urine pH Ur Specific [place] Urine Protein Urine Glucose (UA) Urine Ketones Urine Blood Urine Nitrite Urine Bilirubin Urine Urobilinogen Blood Type Antibody Screen 04/13/17 04/13/17 04/13/17 15:00 15:00 15:00 WBC RBC Hgb Hct MCV MCH MCHC RDW Plt Count MPV Absolute Neuts (auto) Absolute Lymphs (auto) Absolute Monos (auto) Absolute Eos (auto) Absolute Basos (auto) Neutrophils % Lymphocytes % Monocytes % Eosinophils % Basophils % PT with INR INR PTT (Actin FS) VBG pH POC VBG pCO2 POC VBG pO2 Mixed VBG HCO3 Sodium 135 L Potassium 4.6 D Chloride 99 Carbon Dioxide 29 Anion Gap 7 L BUN 22 H D Creatinine 1.2 H Creat Clearance w eGFR 45.52 Random Glucose 190 H D Lactic Acid 0.8 Calcium 8.4 L Total Bilirubin 0.5 D AST 24 D ALT 55 D Alkaline Phosphatase 130 H D Creatine Kinase 56 Troponin I < 0.02 B-Natriuretic Peptide 1276.60 H Total Protein 7.0 Albumin 3.3 L Urine Color Urine Appearance Urine pH Ur Specific [place] Urine Protein Urine Glucose (UA) Urine Ketones Urine Blood Urine Nitrite Urine Bilirubin Urine Urobilinogen Blood Type O POSITIVE Antibody Screen Negative 04/13/17 15:20 WBC RBC Hgb Hct MCV MCH MCHC RDW Plt Count MPV Absolute Neuts (auto) Absolute Lymphs (auto) Absolute Monos (auto) Absolute Eos (auto) Absolute Basos (auto) Neutrophils % Lymphocytes % Monocytes % Eosinophils % Basophils % PT with INR INR PTT (Actin FS) VBG pH POC VBG pCO2 POC VBG pO2 Mixed VBG HCO3 Sodium Potassium Chloride Carbon Dioxide Anion Gap BUN Creatinine Creat Clearance w eGFR Random Glucose Lactic Acid Calcium Total Bilirubin AST ALT Alkaline Phosphatase Creatine Kinase Troponin I B-Natriuretic Peptide Total Protein Albumin Urine Color Yellow Urine Appearance Clear Urine pH 5.0 Ur Specific [place] 1.019 Urine Protein 1+ H Urine Glucose (UA) Negative Urine Ketones Negative Urine Blood Negative Urine Nitrite Negative Urine Bilirubin Negative Urine Urobilinogen 2.0 H Blood Type Antibody Screen CXR: Stable enlargement of the cardiomediastinal silhouette with mild to moderate pulmonary vascular congestion. ASSESSMENT/PLAN: Patient is a 61-year-old female with significant past medical history of Hypertension, Hyperlipidemia, Pre-diabetes, CAD, Diastolic heart failure, Hep C , CKD stage III-IV, COPD, bipolar/schizophrenia, active smoker presented to the ED with the chief complaint of shortness of breath. # Acute hypoxic hypercapneic respiratory failure likely secondary to COPD. Presented with respiratory distress. Improved with Bipap. Has h/o intubation in the past. Also has some component of CHF exacerbation which may be the primary cause this visit. Unlikely due to pneumonia-no fever, no leukocytosis, no consolidation in CXR. So will monitor off antibiotics at this time Unlikely due to Flu-no flu like symptoms Admit in Tele/Inpatient Continue Bipap overnight (settings 01/27/20) change as needed, as per respiratory Continue IV Prednisone 40mg BID Repeat CXR in am. Smoking cessation # Diastolic heart failure likely in exacerbation c/o respiratory distress, b/l pitting edema++, BNP increased to 1276 as compared in the past Last Echo 03/27/17: Left systolic ventricular function normal. No regional wall abnormalities Continue IV Lasix 40mg Daily Strict I's and o's Hickman placement Daily weights # Hypertension-not well controlled Continue Amlodipine 10 mg Po Daily Continue Cored 12.5 mg PO BID Continue Hydralazine 50mg PO TID Continue Lisinopril 5mg PO Daily # Bipolar/Schizophrenia No suicidal ideation at this time Continue Lexapro 20mg PO Daily. Continue Olanzapine 10mg PO BID # Iron Deficiency Anemia Continue Ferrous sulphate 325mg # SANTO creatinine 1.2 (Baseline creatinine 0.9 in 04/01/17) Avoid nephrotoxic drugs # Pre-diabetes Last HbA1c was 6.2 Diet and exercise counseling # Active smoker Smoking cessation counseling # Code Status: Full Code # FEN Not on IV fluids Electrolytes WNL Sodium/Cholesterol controlled diet # Prophylaxis For DVT: Heparin 5000 IU sq TID For GI: Not indicated # Dispo: Duration of stay unknown. Illness, Investigation and Plan of care explained to the patient. She verbalized understanding. Case discussed with Dr. Agosto and Senior Investment Analyst. Visit type - Emergency Visit Emergency Visit: Yes ED Registration Date: 04/13/17 Care time: The patient presented to the Emergency Department on the above date and was hospitalized for further evaluation of their emergent condition. - New Patient This patient is new to me today: Yes Date on this admission: 04/13/17 - Critical Care Critical Care patient: No
--- NOTE | 2017-04-13 18:05 | PN ---
Teaching Attending Note Name of Resident: Raghu Reed ATTENDING PHYSICIAN STATEMENT Time of evaluation: 5:30 PM I saw and evaluated the patient. I reviewed the resident's note and discussed the case with the resident. I agree with the resident's findings and plan as documented. SUBJECTIVE: 61 yof with PMHx of morbid obesity, Diastolic HF, COPD, suspected DIRK, NIDDM, HTN, HLD, schizophrenia/bipolar disorder, frequent recent admissions with hypoxic/hypercapneic respiratory failure requiring Bipap/Intubation, last discharged on 04/03/2017 on home oxygen, oral steroid taper and lasix reports was doing well since her discharge (states is on Prednisone 30 mg currently), was at a [employer] party when had been eating a lot of salty food, had sudden onset of severe shortness of breath with wheezing and was brought to the Ed. 12 point ROS done, positive for cough with whitish sputum, leg swelling that has improved from recent admission. Has been using 2 pillows at night with no recent change. Denies any chest pain, palpitations, dizziness, fevers, chills, URI like illness , abdominal or urinary symptoms. Currently on Bipap in the ED, feeling better, no other complaints. OBJECTIVE: Vital Signs Period Temp Pulse Resp BP Sys/Osei Pulse Ox Last 24 Hr 98.2 F 70-79 20-20 129-157/70-87 96-100 Intake & Output 04/10/17 04/11/17 04/12/17 04/13/17 23:59 23:59 23:59 23:59 Weight 240 lb GENERAL: Awake, alert, and fully oriented,on Bipap, breathing comfortably with no use of acessory muscles of respiration HEAD: Normal with no signs of trauma. EYES: Pupils equal, round and reactive to light, extraocular movements intact, sclera anicteric, mild conjunctival injection R>L. No lid lag. EARS, NOSE, THROAT: Ears normal, nares patent, oropharynx clear without exudates. Moist mucous membranes. NECK: Normal range of motion, supple without lymphadenopathy, JVD, or masses, however exam limited given body habitus LUNGS: decreased breath sounds bilaterally with occasional wheezing, scattered rales HEART: S12 regular ABDOMEN: Soft, nontender, not distended, normoactive bowel sounds, no guarding, no rebound MUSCULOSKELETAL: Normal range of motion at all joints. No bony deformities or tenderness. No CVA tenderness. EXTREMITIES: 2+ pulses, warm, well-perfused. No calf tenderness. 1-2+ pitting pedal edema bilaterally symmetrically NEUROLOGICAL: Cranial nerves II-XII intact. Normal speech. PSYCHIATRIC: Cooperative. Good eye contact. Appropriate mood and affect. SKIN: Warm, dry, normal turgor, no rashes or lesions noted, normal capillary refill. Home Medication List Medication Instructions Recorded Confirmed Type Escitalopram Oxalate [Lexapro -] 20 mg PO DAILY 09/14/15 04/13/17 History Olanzapine [Zyprexa -] 10 mg PO BID 09/14/15 04/13/17 History Amlodipine Besylate [Norvasc -] 10 mg PO DAILY 02/25/16 04/13/17 History Carvedilol [Coreg -] 12.5 mg PO BID 02/25/16 04/13/17 History Hydralazine HCl [Apresoline -] 50 mg PO TID 02/25/16 04/13/17 History Atorvastatin Ca [Lipitor] 40 mg PO DAILY 04/01/17 04/13/17 History Active Medications Generic Name Dose Route Start Last Admin Trade Name Freq PRN Reason Stop Dose Admin Albuterol Sulfate 1 amp 04/13/17 17:46 Ventolin 0.083% Nebulizer Soln - NEB Q4H PRN SHORT OF BREATH/WHEEZING Albuterol/Ipratropium 1 amp 04/13/17 18:00 Duoneb - NEB QIDR JOSLYN Ferrous Sulfate 325 mg 04/14/17 10:00 Feosol - PO DAILY [facility] Furosemide 40 mg 04/14/17 10:00 Lasix Injection - IVPUSH DAILY [facility] Heparin Sodium (Porcine) 5,000 unit 04/13/17 22:00 Heparin - SQ TID [facility] Methylprednisolone Sodium Succinate 60 mg 04/14/17 10:00 Solu-Medrol - IVPUSH DAILY [facility] Olanzapine 10 mg 04/13/17 22:00 Zyprexa - PO BID [facility] Laboratory Results - last 24 hr 04/13/17 04/13/17 04/13/17 15:00 15:00 15:00 WBC 6.7 RBC 3.48 L Hgb 8.3 L Hct 27.4 L MCV 78.6 L MCH 24.0 L MCHC 30.5 L RDW 20.4 H Plt Count 326 D MPV 7.1 L Absolute Neuts (auto) 5.3 L Absolute Lymphs (auto) 0.6 L Absolute Monos (auto) 0.7 L Absolute Eos (auto) 0.0 Absolute Basos (auto) 0.0 L Neutrophils % 79.1 Lymphocytes % 8.7 Monocytes % 11.2 H D Eosinophils % 0.6 D Basophils % 0.4 PT with INR 11.80 INR 1.04 PTT (Actin FS) 28.6 VBG pH 7.27 L D POC VBG pCO2 65.2 H* D POC VBG pO2 54.6 H D Mixed VBG HCO3 29.1 H Sodium Potassium Chloride Carbon Dioxide Anion Gap BUN Creatinine Creat Clearance w eGFR Random Glucose Lactic Acid Calcium Total Bilirubin AST ALT Alkaline Phosphatase Creatine Kinase Troponin I B-Natriuretic Peptide Total Protein Albumin Urine Color Urine Appearance Urine pH Ur Specific [place] Urine Protein Urine Glucose (UA) Urine Ketones Urine Blood Urine Nitrite Urine Bilirubin Urine Urobilinogen Urine WBC (Auto) Urine RBC (Auto) Ur Epithelial Cells Hyaline Casts Urine Mucus Blood Type Antibody Screen 04/13/17 04/13/17 04/13/17 15:00 15:00 15:00 WBC RBC Hgb Hct MCV MCH MCHC RDW Plt Count MPV Absolute Neuts (auto) Absolute Lymphs (auto) Absolute Monos (auto) Absolute Eos (auto) Absolute Basos (auto) Neutrophils % Lymphocytes % Monocytes % Eosinophils % Basophils % PT with INR INR PTT (Actin FS) VBG pH POC VBG pCO2 POC VBG pO2 Mixed VBG HCO3 Sodium 135 L Potassium 4.6 D Chloride 99 Carbon Dioxide 29 Anion Gap 7 L BUN 22 H D Creatinine 1.2 H Creat Clearance w eGFR 45.52 Random Glucose 190 H D Lactic Acid 0.8 Calcium 8.4 L Total Bilirubin 0.5 D AST 24 D ALT 55 D Alkaline Phosphatase 130 H D Creatine Kinase 56 Troponin I < 0.02 B-Natriuretic Peptide 1276.60 H Total Protein 7.0 Albumin 3.3 L Urine Color Urine Appearance Urine pH Ur Specific [place] Urine Protein Urine Glucose (UA) Urine Ketones Urine Blood Urine Nitrite Urine Bilirubin Urine Urobilinogen Urine WBC (Auto) Urine RBC (Auto) Ur Epithelial Cells Hyaline Casts Urine Mucus Blood Type O POSITIVE Antibody Screen Negative 04/13/17 15:20 WBC RBC Hgb Hct MCV MCH MCHC RDW Plt Count MPV Absolute Neuts (auto) Absolute Lymphs (auto) Absolute Monos (auto) Absolute Eos (auto) Absolute Basos (auto) Neutrophils % Lymphocytes % Monocytes % Eosinophils % Basophils % PT with INR INR PTT (Actin FS) VBG pH POC VBG pCO2 POC VBG pO2 Mixed VBG HCO3 Sodium Potassium Chloride Carbon Dioxide Anion Gap BUN Creatinine Creat Clearance w eGFR Random Glucose Lactic Acid Calcium Total Bilirubin AST ALT Alkaline Phosphatase Creatine Kinase Troponin I B-Natriuretic Peptide Total Protein Albumin Urine Color Yellow Urine Appearance Clear Urine pH 5.0 Ur Specific [place] 1.019 Urine Protein 1+ H Urine Glucose (UA) Negative Urine Ketones Negative Urine Blood Negative Urine Nitrite Negative Urine Bilirubin Negative Urine Urobilinogen 2.0 H Urine WBC (Auto) 1 Urine RBC (Auto) <1 Ur Epithelial Cells Rare Hyaline Casts 5 Urine Mucus Rare Blood Type Antibody Screen CXR reviewed - pulmonary venous congestion EKG NSR, no acute ST-T changes. ASSESSMENT AND PLAN: 61 yof with PMHx of morbid obesity, Diastolic HF, COPD, suspected DIRK, NIDDM, HTN, HLD, schizophrenia/bipolar disorder, frequent recent admissions with hypoxic/hypercapneic respiratory failure requiring Bipap/Intubation, last discharged on 04/03/2017 on home oxygen, oral steroid taper and lasix reports was doing well since her discharge (states is on Prednisone 30 mg currently) admitted with recurrent Acute hypoxic/hypercapneic respiratory failure, Diastolic HF exacerbation and Mild COPD -Acute hyopxic/hypercapneic respiratory failure exacerbation -Acute diastolic Heart failure exacerbation, likely from dietary +/- med non compliance -Acute mild COPD exacerbation -NIDDM -HTN -HLD -Schizophrenia/bipolar disorder -Morbid obesity -suspect DIRK, ?OHS Plan: Bipap, repeat ABG in a few hours. lasix 40 mg IV daily, strict I/OS, daily weights. Solumedrol 40 mg IV q12h, standing and prn nebs. Drug screen, ETOH level, Telemetry, repeat troponin in 6 hours. No indication for repeat 2D echo currently. Continue zyprexa/lexapro. ISS, diabetic diet. Continue statin. GIPPX while on steroids DVTPPX with heparin Dispo anticipate atleast 2 midnight stays given need for Bipap, iV iduresis, close hemodynamic/respiratory status monitoring. Total admit time spent 65 min.
[2017-04-13 18:49] LABS: COCAINE, UR NEGATIVE ng/ml (CUTOFF=300); METHADONE, UR NEGATIVE ng/ml (CUTOFF=300); OPIATES, URI POSITIVE ng/ml (CUTOFF=300); PHENCYCLIDINE,URINE NEGATIVE ng/ml (CUTOFF=25); URINE AMPHETAMINES NEGATIVE ng/ml (CUTOFF=500); URINE BARBITURATES NEGATIVE ng/ml (CUTOFF=200); URINE BENZODIAZEPINES NEGATIVE ng/ml (CUTOFF=200)
[2017-04-13] MEDS: ALBUTEROL SO4 2.5/IPRATROPIUM 0.5 INH SOL 3 ML VIAL.NEB. NEB SCH (18:56)
[2017-04-13] MEDS ORDERED: CARVEDILOL 12.5 MG TABLET (FP) ONE (22:26)
[2017-04-13] MEDS ORDERED: hydrALAZINE HCL 25 MG TABLET (FP) ONE (22:26)
[2017-04-13] MEDS ORDERED: OLANZapine 10 MG TABLET ONE (22:26)
[2017-04-13] MEDS ORDERED: ATORVASTATIN CA 40 MG TABLET (FP) ONE (22:27)
[2017-04-13] MEDS ORDERED: methylPREDNISolone NA SUCC 40 MG/1 ML VIAL ONE (22:27)
[2017-04-13] MEDS ORDERED: HEPARIN NA (PORCINE) 5,000 UNITS/ML 1ML VIAL ONE (22:27)
[2017-04-13] MEDS: HEPARIN NA (PORCINE) 5,000 UNITS/ML 1ML VIAL SQ SCH (22:32)
[2017-04-13] MEDS: methylPREDNISolone NA SUCC 40 MG/1 ML VIAL IVPUSH SCH (22:33)
[2017-04-13 22:40] LABS: ARTERIAL BLOOD GAS BASE EXCESS 2.8 meq/l (-2-2); ARTERIAL BLOOD GAS PO2 95.5 mmHg (80-100); ARTERIAL BLOOD GAS pH 7.27 (7.35-7.45)
[2017-04-13 22:42] LABS: ALLENS TEST POSITIVE; ARTERIAL BLOOD GAS PCO2 67.5 mmHg (35-45)
[2017-04-13] MEDS: hydrALAZINE HCL 50 MG TABLET (FP) PO SCH (22:52)
[2017-04-13] MEDS: ATORVASTATIN CA 40 MG TABLET (FP) PO SCH (22:52)
[2017-04-13] MEDS: CARVEDILOL 12.5 MG TABLET (FP) PO SCH (22:52)
[2017-04-13] MEDS: OLANZapine 10 MG TABLET PO SCH (22:52)
--- NOTE | 2017-04-13 23:55 | HOSP ---
Subjective - Review of Symptoms Events since last encounter: Pt ABG 7.27/67.5/95/30 at 10:30PM. Pt evaluated at bedside with Dr. Sherwood. Stable in NAD, on bipap. RR increased on Bipap and RT informed to confirm new settings. Discussion was held with pt regarding code status. Pt verbally-endorsed wishes for all necessary medical intervention; full code status updated in pt chart. Pt A&Ox3 with no cognitive issues. Physical Examination Vital Signs: Vital Signs Temperature 98.2 F 04/13/17 14:16 Pulse Rate 87 04/13/17 21:00 Respiratory Rate 18 04/13/17 21:00 Blood Pressure 143/81 04/13/17 21:00 O2 Sat by Pulse Oximetry (%) 96 04/13/17 22:43 Labs: CBC, BMP 04/13/17 15:00 04/13/17 15:00
[2017-04-14] MEDS ORDERED: ALBUTEROL SO4 2.5/IPRATROPIUM 0.5 INH SOL 3 ML VIAL.NEB. NEB ONE ×2 (00:08→06:09)
[2017-04-14] MEDS: ALBUTEROL SO4 2.5/IPRATROPIUM 0.5 INH SOL 3 ML VIAL.NEB. NEB SCH ×4 (00:09→18:30)
[2017-04-14] MEDS ORDERED: hydrALAZINE HCL 25 MG TABLET (FP) ONE (06:08)
[2017-04-14] MEDS ORDERED: HEPARIN NA (PORCINE) 5,000 UNITS/ML 1ML VIAL ONE (06:09)
[2017-04-14] MEDS: hydrALAZINE HCL 50 MG TABLET (FP) PO SCH ×3 (06:19→21:04)
[2017-04-14] MEDS: HEPARIN NA (PORCINE) 5,000 UNITS/ML 1ML VIAL SQ SCH ×3 (06:19→21:05)
--- NOTE | 2017-04-14 06:20 | PN ---
Physical Exam: SUBJECTIVE: No complaints overnight. Pt reports feeling her breathing is getting better. Melendez was placed which is draining clear-yellow urin about 150cc currently in bag. Pt denies any CP/discomfort, lightheadedness/dizziness, fevers/chills, diarrhea/constipation. OBJECTIVE: Vital Signs Period Temp Pulse Resp BP Sys/Osei Pulse Ox Last 24 Hr 98.2 F 70-87 18-20 129-157/70-93 96-100 GENERAL: NAD, awake, alert moreso than previous exam HEENT: No JVD, Moist mucosa, BiPap mask currently on, EOMI, PATRICE LUNGS: Expiratory phase increased. Rales noted diffusely, however decreased from previous exam. Bibasillar end-expiratory wheezing. No accessory muscle use. HEART: RRR, S1, S2 without murmur ABDOMEN: Soft, nontender, nondistended, normoactive bowel sounds, no guarding, no rebound, no hepatosplenomegaly EXTREMITIES: 2+ DP pulses, 2+ pitting edema to knee NEUROLOGICAL: Nonfocal exam. Strength 5/5 grossly. Normal speech. Gait not observed. PSYCH: Normal mood, normal affect. SKIN: Warm, dry, no rashes or lesions noted Laboratory Results - last 24 hr 04/13/17 04/13/17 04/13/17 15:00 15:00 15:00 WBC 6.7 RBC 3.48 L Hgb 8.3 L Hct 27.4 L MCV 78.6 L MCH 24.0 L MCHC 30.5 L RDW 20.4 H Plt Count 326 D MPV 7.1 L Absolute Neuts (auto) 5.3 L Absolute Lymphs (auto) 0.6 L Absolute Monos (auto) 0.7 L Absolute Eos (auto) 0.0 Absolute Basos (auto) 0.0 L Neutrophils % 79.1 Lymphocytes % 8.7 Monocytes % 11.2 H D Eosinophils % 0.6 D Basophils % 0.4 PT with INR 11.80 INR 1.04 PTT (Actin FS) 28.6 Puncture Site ABG pH ABG pCO2 at Pt Temp ABG pO2 at Pt Temp ABG HCO3 ABG O2 Sat (Measured) ABG O2 Content ABG Base Excess Good Test VBG pH 7.27 L D POC VBG pCO2 65.2 H* D POC VBG pO2 54.6 H D Mixed VBG HCO3 29.1 H O2 Delivery Device Oxygen Flow Rate Vent Mode Vent Rate PEEP Pressure Support Vent Sodium Potassium Chloride Carbon Dioxide Anion Gap BUN Creatinine Creat Clearance w eGFR Random Glucose Lactic Acid Calcium Total Bilirubin AST ALT Alkaline Phosphatase Creatine Kinase Troponin I B-Natriuretic Peptide Total Protein Albumin Urine Color Urine Appearance Urine pH Ur Specific [place] Urine Protein Urine Glucose (UA) Urine Ketones Urine Blood Urine Nitrite Urine Bilirubin Urine Urobilinogen Ur Leukocyte Esterase Urine WBC (Auto) Urine RBC (Auto) Ur Epithelial Cells Hyaline Casts Urine Mucus Opiates Screen Methadone Screen Barbiturate Screen Phencyclidine Screen Ur Amphetamines Screen MDMA (Ecstasy) Screen Benzodiazepines Screen Cocaine Screen U Marijuana (THC) Screen Alcohol, Quantitative Blood Type Antibody Screen 04/13/17 04/13/17 04/13/17 15:00 15:00 15:00 WBC RBC Hgb Hct MCV MCH MCHC RDW Plt Count MPV Absolute Neuts (auto) Absolute Lymphs (auto) Absolute Monos (auto) Absolute Eos (auto) Absolute Basos (auto) Neutrophils % Lymphocytes % Monocytes % Eosinophils % Basophils % PT with INR INR PTT (Actin FS) Puncture Site ABG pH ABG pCO2 at Pt Temp ABG pO2 at Pt Temp ABG HCO3 ABG O2 Sat (Measured) ABG O2 Content ABG Base Excess Good Test VBG pH POC VBG pCO2 POC VBG pO2 Mixed VBG HCO3 O2 Delivery Device Oxygen Flow Rate Vent Mode Vent Rate PEEP Pressure Support Vent Sodium 135 L Potassium 4.6 D Chloride 99 Carbon Dioxide 29 Anion Gap 7 L BUN 22 H D Creatinine 1.2 H Creat Clearance w eGFR 45.52 Random Glucose 190 H D Lactic Acid 0.8 Calcium 8.4 L Total Bilirubin 0.5 D AST 24 D ALT 55 D Alkaline Phosphatase 130 H D Creatine Kinase 56 Troponin I < 0.02 B-Natriuretic Peptide 1276.60 H Total Protein 7.0 Albumin 3.3 L Urine Color Urine Appearance Urine pH Ur Specific [place] Urine Protein Urine Glucose (UA) Urine Ketones Urine Blood Urine Nitrite Urine Bilirubin Urine Urobilinogen Ur Leukocyte Esterase Urine WBC (Auto) Urine RBC (Auto) Ur Epithelial Cells Hyaline Casts Urine Mucus Opiates Screen Methadone Screen Barbiturate Screen Phencyclidine Screen Ur Amphetamines Screen MDMA (Ecstasy) Screen Benzodiazepines Screen Cocaine Screen U Marijuana (THC) Screen Alcohol, Quantitative Blood Type O POSITIVE Antibody Screen Negative 12/04/13/17 04/13/17 15:20 15:20 17:18 WBC RBC Hgb Hct MCV MCH MCHC RDW Plt Count MPV Absolute Neuts (auto) Absolute Lymphs (auto) Absolute Monos (auto) Absolute Eos (auto) Absolute Basos (auto) Neutrophils % Lymphocytes % Monocytes % Eosinophils % Basophils % PT with INR INR PTT (Actin FS) Puncture Site ABG pH ABG pCO2 at Pt Temp ABG pO2 at Pt Temp ABG HCO3 ABG O2 Sat (Measured) ABG O2 Content ABG Base Excess Good Test VBG pH POC VBG pCO2 POC VBG pO2 Mixed VBG HCO3 O2 Delivery Device Oxygen Flow Rate Vent Mode Vent Rate PEEP Pressure Support Vent Sodium Potassium Chloride Carbon Dioxide Anion Gap BUN Creatinine Creat Clearance w eGFR Random Glucose Lactic Acid Calcium Total Bilirubin AST ALT Alkaline Phosphatase Creatine Kinase Troponin I B-Natriuretic Peptide 1206.49 H Total Protein Albumin Urine Color Yellow Urine Appearance Clear Urine pH 5.0 Ur Specific [place] 1.019 Urine Protein 1+ H Urine Glucose (UA) Negative Urine Ketones Negative Urine Blood Negative Urine Nitrite Negative Urine Bilirubin Negative Urine Urobilinogen 2.0 H Ur Leukocyte Esterase Negative Urine WBC (Auto) 1 Urine RBC (Auto) <1 Ur Epithelial Cells Rare Hyaline Casts 5 Urine Mucus Rare Opiates Screen Positive Methadone Screen Negative Barbiturate Screen Negative Phencyclidine Screen Negative Ur Amphetamines Screen Negative MDMA (Ecstasy) Screen Negative Benzodiazepines Screen Negative Cocaine Screen Negative U Marijuana (THC) Screen Negative Alcohol, Quantitative Blood Type Antibody Screen 04/13/17 04/13/17 04/14/17 19:07 22:30 00:02 WBC RBC Hgb Hct MCV MCH MCHC RDW Plt Count MPV Absolute Neuts (auto) Absolute Lymphs (auto) Absolute Monos (auto) Absolute Eos (auto) Absolute Basos (auto) Neutrophils % Lymphocytes % Monocytes % Eosinophils % Basophils % PT with INR INR PTT (Actin FS) Puncture Site Left radial ABG pH 7.27 L D ABG pCO2 at Pt Temp 67.5 H* ABG pO2 at Pt Temp 95.5 D ABG HCO3 30.0 H ABG O2 Sat (Measured) 97.0 ABG O2 Content 11.3 L ABG Base Excess 2.8 H Good Test Positive VBG pH POC VBG pCO2 POC VBG pO2 Mixed VBG HCO3 O2 Delivery Device Other Oxygen Flow Rate 40% Vent Mode S/t Vent Rate 12 PEEP 0.0 Pressure Support Vent 10/5 Sodium Potassium Chloride Carbon Dioxide Anion Gap BUN Creatinine Creat Clearance w eGFR Random Glucose Lactic Acid Calcium Total Bilirubin AST ALT Alkaline Phosphatase Creatine Kinase Troponin I < 0.02 B-Natriuretic Peptide Total Protein Albumin Urine Color Urine Appearance Urine pH Ur Specific [place] Urine Protein Urine Glucose (UA) Urine Ketones Urine Blood Urine Nitrite Urine Bilirubin Urine Urobilinogen Ur Leukocyte Esterase Urine WBC (Auto) Urine RBC (Auto) Ur Epithelial Cells Hyaline Casts Urine Mucus Opiates Screen Methadone Screen Barbiturate Screen Phencyclidine Screen Ur Amphetamines Screen MDMA (Ecstasy) Screen Benzodiazepines Screen Cocaine Screen U Marijuana (THC) Screen Alcohol, Quantitative < 5.0 Blood Type Antibody Screen Active Medications Generic Name Dose Route Start Last Admin Trade Name Freq PRN Reason Stop Dose Admin Albuterol Sulfate 1 amp 04/13/17 17:46 Ventolin 0.083% Nebulizer Soln - NEB Q4H PRN SHORT OF BREATH/WHEEZING Albuterol/Ipratropium 1 amp 04/13/17 18:00 04/14/17 06:19 Duoneb - NEB 1 amp QIDR JOSLYN Administration Amlodipine Besylate 10 mg 04/14/17 10:00 Norvasc - PO DAILY [facility] Aspirin 81 mg 04/14/17 10:00 Ecotrin - PO DAILY [facility] Atorvastatin Calcium 40 mg 04/13/17 22:00 04/13/17 22:52 Lipitor - PO 40 mg HS JOSLYN Administration Carvedilol 12.5 mg 04/13/17 22:00 04/13/17 22:52 Coreg - PO 12.5 mg BID JOSLYN Administration Escitalopram Oxalate 20 mg 04/14/17 10:00 Lexapro - PO DAILY [facility] Ferrous Sulfate 325 mg 04/14/17 10:00 Feosol - PO DAILY [facility] Furosemide 40 mg 04/14/17 10:00 Lasix Injection - IVPUSH DAILY [facility] Heparin Sodium (Porcine) 5,000 unit 04/13/17 22:00 04/14/17 06:19 Heparin - SQ 5,000 unit TID JOSLYN Administration Hydralazine HCl 50 mg 04/13/17 22:00 04/14/17 06:19 Apresoline - PO 50 mg TID JOSLYN Administration Lisinopril 5 mg 04/14/17 10:00 Prinivil PO DAILY JOSLYN Methylprednisolone Sodium Succinate 40 mg 04/13/17 22:00 04/13/17 22:33 Solu-Medrol - IVPUSH 40 mg BID JOSLYN Administration Olanzapine 10 mg 04/13/17 22:00 04/13/17 22:52 Zyprexa - PO 10 mg BID JOSLYN Administration ASSESSMENT/PLAN: 61yo F with h/o HTN, HLD, pre-diabetes, CAD, dCHF, hep c, CKD stage III-IV, COPD , schizophrenia, active smoker with 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 1) Acute hypoxic hypercapnic respiratory distress --2/2 COPD exacerbation vs. dCHF exacerbation --Components of each noted on exam; improving --Repeat ABG at 10pm last night not truly improved --Repeat ABG --Pt returned to NRB mask, however pending ABG will continue BiPap continuously --Doubt PNA - no fevers, no WBC count, CXR with no infiltrations (mostly showing congestion and R-sided effusion --No need for ABX currently due to this --Medrol 40mg BID --Smoking cessation 2) Diastolic CHF --continued b/l pitting edema --BNP increased 1276 (double normal) --Echo 03/27/17: L systolic normal size and function --Lasix 40mg IV qdaily --Strict I&O's; melendez has been placed --Daily weights 3) HTN --Currently 143/81 --Continue home medication Norvasc 10mg qdaily Coreg 12.5 mg PO BID Hydralazine 50mg TID Lisinopril 5mg qdaily 4) Schizoprenia history --Not suicidal currently --Lexapro 20mg qDaily --Zyprexa 10mg PO BID 5) Iron deficiency anemia --Cont Iron supplementation --Monitor signs of constipation 6) SANTO Cr 1.2 (baseline 0.9) Most likely cardio-renal syndrome 7) Pre-diabetes --A1C this past month 6.2 (prior 5.6) --Diet counselling FEN: Fluids: Avoid due to overload Electrolytes abnormalities: Hyperphosphatemia Nutrition: Sodium and diet controlled PPX: DVT - Heparin SQ TID Dispo: Continue Tele monitoring Code Status: Full code Case to be discussed with Dr. Surendra Reed, DO - Internal Medicine PGY-1 Visit type - Emergency Visit Emergency Visit: No - New Patient This patient is new to me today: No - Critical Care Critical Care patient: No
[2017-04-14 07:59] LABS: BASO % 0.2 % (0-2.0); HEMATOCRIT 27.6 % (32.4-45.2); HEMOGLOBIN 8.2 GM/dL (10.7-15.3); LYMPH % 13.4 % (8-40); MCH 23.2 pg (25.7-33.7); MCHC 29.7 g/dl (32.0-36.0); MEAN CELL VOLUME 78.2 fl (80-96); MEAN PLT VOLUME 7.1 fl (7.5-11.1); MONO % 5.7 % (3.8-10.2); NEUT % 80.7 % (42.8-82.8); PLATELET COUNT 301 K/MM3 (134-434); RBC 3.53 M/mm3 (3.60-5.2); RDW 20.3 % (11.6-15.6); WHITE BLOOD COUNT 3.7 K/mm3 (4.0-10.0)
[2017-04-14 08:15] LABS: ANION GAP 8 (8-16); BLOOD UREA NITROGEN 22 mg/dL (7-18); CALCIUM 8.4 mg/dL (8.5-10.1); CHLORIDE 101 mmol/L (98-107); CO2 29 mmol/L (21-32); CREATININE 1.1 mg/dL (0.55-1.02); GLUCOSE,RANDOM 168 mg/dL (74-106); MAGNESIUM 2.2 mg/dL (1.8-2.4); PHOSPHOROUS 5.3 mg/dL (2.5-4.9); POTASSIUM 4.4 mmol/L (3.5-5.1); SODIUM 138 mmol/L (136-145)
[2017-04-14 08:55] VITALS: BMI 42.8
[2017-04-14] MEDS ORDERED: PT OWN MED DRAWER 7, Y5N ONE (09:42)
[2017-04-14] MEDS ORDERED: methylPREDNISolone NA SUCC 40 MG/1 ML VIAL IVPUSH SCH (10:00)
[2017-04-14] MEDS: CARVEDILOL 12.5 MG TABLET (FP) PO SCH ×2 (10:16→21:05)
[2017-04-14] MEDS: FUROSEMIDE 40 MG/4 ML INJECTABLE VIAL IVPUSH SCH (10:16)
[2017-04-14] MEDS: amLODIPine BESYLATE 10 MG TABLET (FP) PO SCH (10:16)
[2017-04-14] MEDS: FERROUS SO4 325 MG TABLET (FP) PO SCH (10:16)
[2017-04-14] MEDS: ASPIRIN COATED 81 MG TABLET.EC PO SCH (10:16)
[2017-04-14] MEDS: LISINOPRIL 5 MG TABLET (FP) PO SCH (10:16)
[2017-04-14] MEDS: ESCITALOPRAM OXALATE 20 MG TABLET (FP) PO SCH (10:16)
[2017-04-14] MEDS: methylPREDNISolone NA SUCC 40 MG/1 ML VIAL IVPUSH SCH ×2 (10:17→21:05)
[2017-04-14] MEDS: OLANZapine 10 MG TABLET PO SCH ×2 (11:30→23:00)
--- NOTE | 2017-04-14 13:51 | EKG ---
Test Reason : Blood Pressure : / mmHG Vent. Rate : 069 BPM Atrial Rate : 069 BPM P-R Int : 174 ms QRS Dur : 080 ms QT Int : 410 ms P-R-T Axes : 061 022 042 degrees QTc Int : 439 ms NORMAL SINUS RHYTHM NORMAL ECG WHEN COMPARED WITH ECG OF 31-MAR-2017 23:57, NO SIGNIFICANT CHANGE WAS FOUND Confirmed by ART ANTHONY MD ([id number] on 04/14/2017 1:50:54 PM Referred By: Confirmed By:ART ANTHONY MD
[2017-04-14] MEDS ORDERED: guaiFENesin 200 MG/10 ML 10 ML UNIT-DOSE CUPS PO PRN (15:28)
--- NOTE | 2017-04-14 19:10 | PN ---
Teaching Attending Note Name of Resident: Raghu Reed ATTENDING PHYSICIAN STATEMENT Time of evaluation: 10:10 AM I saw and evaluated the patient. I reviewed the resident's note and discussed the case with the resident. I agree with the resident's findings and plan as documented. SUBJECTIVE: patient seen and examined. breathing markedly improved, no new complaints. OVerall feels much better. OBJECTIVE: Vital Signs Period Temp Pulse Resp BP Sys/Osei Pulse Ox Last 24 Hr 98.4 F-98.4 F 68-88 18-22 116-157/71-93 95-100 Intake & Output 04/11/17 04/12/17 04/13/17 04/14/17 23:59 23:59 23:59 23:59 Intake Total 285 Output Total 2400 550 Balance -2400 -265 Weight 240 lb 249 lb 12.8 oz General: sitting in chair in no acute distress CVS:S1S2 regular Chest: improved air entry, no wheezing or rales today Abdomen: soft, obese, NT Extremities: improved pedal edema Home Medication List Medication Instructions Recorded Confirmed Type Escitalopram Oxalate [Lexapro -] 20 mg PO DAILY 09/14/15 04/13/17 History Olanzapine [Zyprexa -] 10 mg PO BID 09/14/15 04/13/17 History Amlodipine Besylate [Norvasc -] 10 mg PO DAILY 02/25/16 04/13/17 History Carvedilol [Coreg -] 12.5 mg PO BID 02/25/16 04/13/17 History Hydralazine HCl [Apresoline -] 50 mg PO TID 02/25/16 04/13/17 History Atorvastatin Ca [Lipitor] 40 mg PO DAILY 04/01/17 04/13/17 History Active Medications Generic Name Dose Route Start Last Admin Trade Name Freq PRN Reason Stop Dose Admin Albuterol Sulfate 1 amp 04/13/17 17:46 Ventolin 0.083% Nebulizer Soln - NEB Q4H PRN SHORT OF BREATH/WHEEZING Albuterol/Ipratropium 1 amp 04/13/17 18:00 04/14/17 12:00 Duoneb - NEB 1 amp QIDR JOSLYN Administration Amlodipine Besylate 10 mg 04/14/17 10:00 04/14/17 10:16 Norvasc - PO 10 mg DAILY JOSLYN Administration Aspirin 81 mg 04/14/17 10:00 04/14/17 10:16 Ecotrin - PO 81 mg DAILY JOSLYN Administration Atorvastatin Calcium 40 mg 04/13/17 22:00 04/13/17 22:52 Lipitor - PO 40 mg HS JOSLYN Administration Carvedilol 12.5 mg 04/13/17 22:00 04/14/17 10:16 Coreg - PO 12.5 mg BID JOSLYN Administration Escitalopram Oxalate 20 mg 04/14/17 10:00 04/14/17 10:16 Lexapro - PO 20 mg DAILY JOSLYN Administration Ferrous Sulfate 325 mg 04/14/17 10:00 04/14/17 10:16 Feosol - PO 325 mg DAILY JOSLYN Administration Furosemide 40 mg 04/14/17 10:00 04/14/17 10:16 Lasix Injection - IVPUSH 40 mg DAILY JOSLYN Administration Guaifenesin 10 ml 04/14/17 15:28 04/14/17 16:15 Robitussin - PO 10 ml Q6H PRN Administration COUGH Heparin Sodium (Porcine) 5,000 unit 04/13/17 22:00 04/14/17 13:59 Heparin - SQ 5,000 unit TID JOSLYN Administration Hydralazine HCl 50 mg 04/13/17 22:00 04/14/17 13:59 Apresoline - PO 50 mg TID JOSLYN Administration Lisinopril 5 mg 04/14/17 10:00 04/14/17 10:16 Prinivil PO 5 mg DAILY JOSLYN Administration Methylprednisolone Sodium Succinate 40 mg 04/13/17 22:00 04/14/17 10:17 Solu-Medrol - IVPUSH 40 mg BID JOSLYN Administration Olanzapine 10 mg 04/13/17 22:00 04/14/17 11:30 Zyprexa - PO 10 mg BID JOSLYN Administration Laboratory Results - last 24 hr 04/13/17 04/13/17 04/14/17 19:07 22:30 00:02 WBC RBC Hgb Hct MCV MCH MCHC RDW Plt Count MPV Absolute Neuts (auto) Absolute Lymphs (auto) Absolute Monos (auto) Absolute Eos (auto) Absolute Basos (auto) Neutrophils % Lymphocytes % Monocytes % Eosinophils % Basophils % Puncture Site Left radial ABG pH 7.27 L D ABG pCO2 at Pt Temp 67.5 H* ABG pO2 at Pt Temp 95.5 D ABG HCO3 30.0 H ABG O2 Sat (Measured) 97.0 ABG O2 Content 11.3 L ABG Base Excess 2.8 H Good Test Positive O2 Delivery Device Other Oxygen Flow Rate 40% Vent Mode S/t Vent Rate 12 PEEP 0.0 Pressure Support Vent 10/5 Sodium Potassium Chloride Carbon Dioxide Anion Gap BUN Creatinine Random Glucose Calcium Phosphorus Magnesium Troponin I < 0.02 Alcohol, Quantitative < 5.0 04/14/17 04/14/17 07:34 07:34 WBC 3.7 L D RBC 3.53 L Hgb 8.2 L Hct 27.6 L MCV 78.2 L MCH 23.2 L MCHC 29.7 L RDW 20.3 H Plt Count 301 MPV 7.1 L Absolute Neuts (auto) 3.0 L Absolute Lymphs (auto) 0.5 L Absolute Monos (auto) 0.2 L Absolute Eos (auto) 0.0 Absolute Basos (auto) 0.0 L Neutrophils % 80.7 Lymphocytes % 13.4 D Monocytes % 5.7 Eosinophils % 0.0 D Basophils % 0.2 Puncture Site ABG pH ABG pCO2 at Pt Temp ABG pO2 at Pt Temp ABG HCO3 ABG O2 Sat (Measured) ABG O2 Content ABG Base Excess Good Test O2 Delivery Device Oxygen Flow Rate Vent Mode Vent Rate PEEP Pressure Support Vent Sodium 138 Potassium 4.4 Chloride 101 Carbon Dioxide 29 Anion Gap 8 BUN 22 H Creatinine 1.1 H Random Glucose 168 H Calcium 8.4 L Phosphorus 5.3 H D Magnesium 2.2 Troponin I Alcohol, Quantitative Microbiology 04/13/17 15:00 Blood - Peripheral Venous Blood Culture - Preliminary NO GROWTH OBTAINED AFTER 24 HOURS, INCUBATION TO CONTINUE FOR 4 DAYS. 04/13/17 15:00 Blood - Peripheral Venous Blood Culture - Preliminary NO GROWTH OBTAINED AFTER 24 HOURS, INCUBATION TO CONTINUE FOR 4 DAYS. ASSESSMENT AND PLAN: 61 yof with PMHx of morbid obesity, Diastolic HF, COPD, suspected DIRK, NIDDM, HTN, HLD, schizophrenia/bipolar disorder, frequent recent admissions with hypoxic/hypercapneic respiratory failure requiring Bipap/Intubation, last discharged on 04/03/2017 on home oxygen, oral steroid taper and lasix reports was doing well since her discharge (states is on Prednisone 30 mg currently) admitted with recurrent Acute hypoxic/hypercapneic respiratory failure, Diastolic HF exacerbation and Mild COPD -Acute hyopxic/hypercapneic respiratory failure exacerbation -Acute diastolic Heart failure exacerbation, likely from dietary +/- med non compliance -Acute mild COPD exacerbation -NIDDM -HTN -HLD -Schizophrenia/bipolar disorder -Morbid obesity -suspect DIRK, ?OHS Plan: Markedly improved, repeat blood gas off Bipap, Change to Hs if improved. taper steroids to PO in AM if continues to improve LAsix 40 mg IV daily, diet compliance counselnig. Tn neg. No events on tele. No indication for repeat 2D echo currently. Continue zyprexa/lexapro. ISS, diabetic diet. Continue statin. GIPPX while on steroids DVTPPX with heparin Dispo pending improvement in 2-3 days, PT eval as improves.
[2017-04-14 20:07] LABS: ARTERIAL BLD GAS O2 SATURATION 91.3 % (90-98.9); ARTERIAL BLOOD GAS BASE EXCESS 1.8 meq/l (-2-2); ARTERIAL BLOOD GAS PO2 66.9 mmHg (80-100)
[2017-04-14 20:08] LABS: ALLENS TEST POSITIVE
[2017-04-14 20:09] LABS: ARTERIAL BLOOD GAS PCO2 64.9 mmHg (35-45); ARTERIAL BLOOD GAS pH 7.27 (7.35-7.45)
[2017-04-14] MEDS: ATORVASTATIN CA 40 MG TABLET (FP) PO SCH (21:04)
[2017-04-15] MEDS: ALBUTEROL SO4 2.5/IPRATROPIUM 0.5 INH SOL 3 ML VIAL.NEB. NEB SCH ×4 (01:55→19:20)
[2017-04-15] MEDS: hydrALAZINE HCL 50 MG TABLET (FP) PO SCH ×3 (06:10→21:27)
[2017-04-15] MEDS: HEPARIN NA (PORCINE) 5,000 UNITS/ML 1ML VIAL SQ SCH ×3 (06:10→21:27)
[2017-04-15 07:59] LABS: HEMATOCRIT 26.7 % (32.4-45.2); HEMOGLOBIN 7.8 GM/dL (10.7-15.3); MEAN CELL VOLUME 79.1 fl (80-96); MEAN PLT VOLUME 7.1 fl (7.5-11.1); PLATELET COUNT 302 K/MM3 (134-434); RBC 3.38 M/mm3 (3.60-5.2); RDW 19.9 % (11.6-15.6); WHITE BLOOD COUNT 6.9 K/mm3 (4.0-10.0)
[2017-04-15 08:32] LABS: BLOOD UREA NITROGEN 43 mg/dL (7-18); CALCIUM 8.5 mg/dL (8.5-10.1); CHLORIDE 98 mmol/L (98-107); GLUCOSE,RANDOM 188 mg/dL (74-106); POTASSIUM 4.5 mmol/L (3.5-5.1); SODIUM 136 mmol/L (136-145)
[2017-04-15 08:34] LABS: ANION GAP 11 (8-16); CO2 27 mmol/L (21-32); CREATININE 1.9 mg/dL (0.55-1.02)
[2017-04-15] MEDS: ASPIRIN COATED 81 MG TABLET.EC PO SCH (10:36)
[2017-04-15] MEDS: ESCITALOPRAM OXALATE 20 MG TABLET (FP) PO SCH (10:36)
[2017-04-15] MEDS: amLODIPine BESYLATE 10 MG TABLET (FP) PO SCH (10:36)
[2017-04-15] MEDS: FUROSEMIDE 40 MG/4 ML INJECTABLE VIAL IVPUSH SCH (10:36)
[2017-04-15] MEDS: CARVEDILOL 12.5 MG TABLET (FP) PO SCH ×2 (10:36→21:27)
[2017-04-15] MEDS: FERROUS SO4 325 MG TABLET (FP) PO SCH (10:36)
[2017-04-15] MEDS: LISINOPRIL 5 MG TABLET (FP) PO SCH (10:36)
[2017-04-15] MEDS ORDERED: FUROSEMIDE 40 MG/4 ML INJECTABLE VIAL IVPUSH ONE ×2 (10:45→19:30)
[2017-04-15] MEDS ORDERED: PT OWN MED DRAWER 7, Y5N ONE ×2 (11:45→21:21)
[2017-04-15] MEDS: methylPREDNISolone NA SUCC 40 MG/1 ML VIAL IVPUSH SCH ×3 (11:48→22:30)
[2017-04-15] MEDS: OLANZapine 10 MG TABLET PO SCH ×2 (11:48→21:27)
--- NOTE | 2017-04-15 12:58 | CON.PULM ---
Consult Consult Specialty:: PULMONARY Referred by:: Dr. Agosto Reason for Consultation:: respiratory failure - History of Present Illness Chief Complaint: shortness of breath History of Present Illness: 61yo female with h/o chronic hypoxic respiratory failure on home O2, COPD, HTN, DM, schizophrenia, bipolar disorder, recently admitted twice this month for acute respiratory failure, once requiring intubation, still smoking who presents with worsening shortness of breath, cough and wheezing. Denies any fevers, chills or sweats. Cough is productive of white sputum. Still smoking 5 cigarettes/day. No nausea, vomiting or diarrhea. No sick contacts. - History Source History Provided By: Patient, Medical Record Limitations to Obtaining History: No Limitations - Past Medical History COURTROOM REPORTER: Yes: TIA Cardio/Vascular: Yes: HTN Pulmonary: Yes: COPD Renal/: Yes: Renal Inusuff Infectious Disease: Yes: Other (HCV) Psych: Yes: Bipolar, Schizophrenia Endocrine: Yes: Diabetes Mellitus - Past Surgical History Past Surgical History: Yes: Hysterectomy - Alcohol/Substance Use Hx Alcohol Use: No History of Substance Use: reports: None - Smoking History Smoking history: Current every day smoker Have you smoked in the past 12 months: Yes Aproximately how many cigarettes per day: 4 - Social History Usual Living Arrangement: Alone ADL: Support Services History of Recent Travel: No Home Medications - Allergies Allergies/Adverse Reactions: Allergies Allergy/AdvReac Type Severity Reaction Status Date / Time ibuprofen [From Motrin IB] Allergy Verified 04/13/17 14:16 metformin Allergy Verified 04/13/17 14:16 Penicillins Allergy Verified 04/13/17 14:16 - Home Medications Home Medications: Ambulatory Orders Escitalopram Oxalate [Lexapro -] 20 mg PO DAILY 09/14/15 Olanzapine [Zyprexa -] 10 mg PO BID 09/14/15 Aspirin Coated [Ecotrin -] 81 mg PO DAILY #30 tablet.ec 09/16/15 Amlodipine Besylate [Norvasc -] 10 mg PO DAILY 02/25/16 Carvedilol [Coreg -] 12.5 mg PO BID 02/25/16 Hydralazine HCl [Apresoline -] 50 mg PO TID 02/25/16 Albuterol Sulfate Inhaler - [Ventolin HFA Inhaler -] 2 inh PO Q4H PRN #1 inh Ferrous Sulfate [Feosol] 325 mg PO DAILY #14 ud 03/29/17 Furosemide [Lasix] 40 mg PO DAILY #14 tablet 03/29/17 Lisinopril [Prinivil] 5 mg PO DAILY #14 tablet 03/29/17 Atorvastatin Ca [Lipitor] 40 mg PO DAILY 04/01/17 Prednisone See Taper PO DAILY #30 tablet 04/03/17 Family Disease History - Family Disease History Family Disease History: Heart Disease: Father ( in 40s) Review of Systems - Review of Systems Constitutional: reports: Weakness. denies: Chills, Fever Eyes: denies: Recent Change in Vision HENT: denies: Nasal Congestion, Throat Pain Neck: denies: Stiffness, Tenderness Cardiovascular: reports: Shortness of Breath. denies: Chest Pain, Palpitations Respiratory: reports: Cough, SOB on Exertion, Wheezing. denies: Hemoptysis Gastrointestinal: denies: Abdominal Pain, Nausea, Vomiting Genitourinary: denies: Dysuria, Hematuria Neurological: denies: Dizziness, Headache Physical Exam Vital Sings: Vital Signs Temperature 97.5 F L 04/15/17 05:53 Pulse Rate 74 04/15/17 05:53 Respiratory Rate 20 04/15/17 05:53 Blood Pressure 106/73 04/15/17 05:53 O2 Sat by Pulse Oximetry (%) 94 L 04/15/17 06:05 Constitutional: Yes: Calm Eyes: Yes: Conjunctiva Clear, EOM Intact HENT: Yes: Atraumatic, Normocephalic Neck: Yes: Supple, Trachea Midline Cardiovascular: Yes: Regular Rate and Rhythm Respiratory: Yes: Rhonchi ...Clubbing: No Gastrointestinal: Yes: Normal Bowel Sounds, Soft. No: Tenderness Edema: Yes Neurological: Yes: Alert, Oriented Labs: CBC, BMP 04/15/17 05:48 04/15/17 05:48 ABG Results ABG pH 7.27 (7.35-7.45) L 04/14/17 20:05 ABG pCO2 at Pt Temp 64.9 mmHg (35-45) H* 04/14/17 20:05 ABG pO2 at Pt Temp 66.9 mmHg (80-100) L D 04/14/17 20:05 ABG HCO3 28.7 meq/L (22-26) H 04/14/17 20:05 ABG O2 Sat (Measured) 91.3 % (90-98.9) 04/14/17 20:05 ABG O2 Content 9.9 % vol (15-22) L* 04/14/17 20:05 ABG Base Excess 1.8 meq/l (-2-2) 04/14/17 20:05 Imaging - Results Chest X-ray: Report Reviewed, Image Reviewed (pulmonary vascular congestion) Problem List - Problems (1) Acute on chronic respiratory failure with hypoxia and hypercapnia Code(s): J96.21 - ACUTE AND CHRONIC RESPIRATORY FAILURE WITH HYPOXIA; J96.22 - ACUTE AND CHRONIC RESPIRATORY FAILURE WITH HYPERCAPNIA (2) COPD exacerbation Code(s): J44.1 - CHRONIC OBSTRUCTIVE PULMONARY DISEASE W (ACUTE) EXACERBATION (3) Acute on chronic diastolic (congestive) heart failure Code(s): I50.33 - ACUTE ON CHRONIC DIASTOLIC (CONGESTIVE) HEART FAILURE (4) Bipolar disorder Code(s): F31.9 - BIPOLAR DISORDER, UNSPECIFIED Qualifiers: Active/Remission status: remission status unspecified Qualified Code(s): F31.9 - Bipolar disorder, unspecified (5) Diabetes mellitus Code(s): E11.9 - TYPE 2 DIABETES MELLITUS WITHOUT COMPLICATIONS Qualifiers: Diabetes mellitus type: type 2 Diabetes mellitus complication status: without complication Diabetes mellitus residential insulin use: without terminal operations manager use Qualified Code(s): E11.9 - Type 2 diabetes mellitus without complications (6) Hypertension Code(s): I10 - ESSENTIAL (PRIMARY) HYPERTENSION Qualifiers: Hypertension type: essential hypertension Qualified Code(s): I10 - Essential (primary) hypertension (7) Schizophrenia Code(s): F20.9 - SCHIZOPHRENIA, UNSPECIFIED Qualifiers: Schizophrenia type: unspecified Qualified Code(s): F20.9 - Schizophrenia, unspecified Assessment/Plan Acute on Chronic Hypoxic and Hypercapneic Respiratory Failure Acute COPD Exacerbation Acute on Chronic Diastolic Heart Failure HTN DM Schizophrenia Bipolar Disorder - continue medrol at current dose - inhaled bronchodilators standing and PRN - O2 to keep Spo2 88-92% to prevent worsening V/Q mismatching - BiPAP at night and PRN during day - IV lasix - monitor urine output, creatinine - 3rd admission this month, will likely need BiPAP at home or trilogy device for chronic hypercapneic respiratory failure - will need ABG on room air within 48hrs of discharge to document hypercapnea - DVT prophylaxis Thank you for this consult Vito Macario MD
--- NOTE | 2017-04-15 14:25 | PN ---
Teaching Attending Note Name of Resident: Mirlande Katz ATTENDING PHYSICIAN STATEMENT Time of evaluation: 8;30 AM I saw and evaluated the patient. I reviewed the resident's note and discussed the case with the resident. I agree with the resident's findings and plan as documented. SUBJECTIVE: Patient seen and examined. breathing improved, no new complaints. OBJECTIVE: Vital Signs Period Temp Pulse Resp BP Sys/Osei Pulse Ox Last 24 Hr 97.5 F-98 F 20-86 20-20 106-120/70-73 94-98 Intake & Output 04/12/17 04/13/17 04/14/17 04/15/17 23:59 23:59 23:59 23:59 Intake Total 405 120 Output Total 2400 550 Balance -2400 -145 120 Weight 240 lb 249 lb 12.8 oz 249 lb 12 oz General: sitting in bed, eating breakfast, on nasal cannula CVS:S1S2 regular Chest: scattered wheezing, decreased air entry, no tachypneia or acessory muscles of respiration Abdomen: soft, obese, NT Neuro AAOX3 Home Medication List Medication Instructions Recorded Confirmed Type Escitalopram Oxalate [Lexapro -] 20 mg PO DAILY 09/14/15 04/13/17 History Olanzapine [Zyprexa -] 10 mg PO BID 09/14/15 04/13/17 History Amlodipine Besylate [Norvasc -] 10 mg PO DAILY 02/25/16 04/13/17 History Carvedilol [Coreg -] 12.5 mg PO BID 02/25/16 04/13/17 History Hydralazine HCl [Apresoline -] 50 mg PO TID 02/25/16 04/13/17 History Atorvastatin Ca [Lipitor] 40 mg PO DAILY 04/01/17 04/13/17 History Active Medications Generic Name Dose Route Start Last Admin Trade Name Freq PRN Reason Stop Dose Admin Albuterol Sulfate 1 amp 04/13/17 17:46 Ventolin 0.083% Nebulizer Soln - NEB Q4H PRN SHORT OF BREATH/WHEEZING Albuterol/Ipratropium 1 amp 04/13/17 18:00 04/15/17 12:30 Duoneb - NEB 1 amp QIDR JOSLYN Administration Amlodipine Besylate 10 mg 04/14/17 10:00 04/15/17 10:36 Norvasc - PO 10 mg DAILY JOSLYN Administration Aspirin 81 mg 04/14/17 10:00 04/15/17 10:36 Ecotrin - PO 81 mg DAILY JOSLYN Administration Atorvastatin Calcium 40 mg 04/13/17 22:00 04/14/17 21:04 Lipitor - PO 40 mg HS JOSLYN Administration Carvedilol 12.5 mg 04/13/17 22:00 04/15/17 10:36 Coreg - PO 12.5 mg BID JOSLYN Administration Escitalopram Oxalate 20 mg 04/14/17 10:00 04/15/17 10:36 Lexapro - PO 20 mg DAILY JOSLYN Administration Ferrous Sulfate 325 mg 04/14/17 10:00 04/15/17 10:36 Feosol - PO 325 mg DAILY JOSLYN Administration Furosemide 40 mg 04/14/17 10:00 04/15/17 10:36 Lasix Injection - IVPUSH 40 mg DAILY JOSLYN Administration Guaifenesin 10 ml 04/14/17 15:28 04/14/17 16:15 Robitussin - PO 10 ml Q6H PRN Administration COUGH Heparin Sodium (Porcine) 5,000 unit 04/13/17 22:00 04/15/17 13:16 Heparin - SQ 5,000 unit TID JOSLYN Administration Hydralazine HCl 50 mg 04/13/17 22:00 04/15/17 13:16 Apresoline - PO 50 mg TID JOSLYN Administration Lisinopril 5 mg 04/14/17 10:00 04/15/17 10:36 Prinivil PO 5 mg DAILY JOSLYN Administration Methylprednisolone Sodium Succinate 40 mg 04/15/17 18:00 04/15/17 11:48 Solu-Medrol - IVPUSH 40 mg Q8H-IV JOSLYN Administration Olanzapine 10 mg 04/13/17 22:00 04/15/17 11:48 Zyprexa - PO 10 mg BID JOSLYN Administration Laboratory Results - last 24 hr 04/14/17 04/15/17 04/15/17 20:05 05:48 05:48 WBC 6.9 D RBC 3.38 L Hgb 7.8 L Hct 26.7 L MCV 79.1 L MCH 23.0 L MCHC 29.0 L RDW 19.9 H Plt Count 302 MPV 7.1 L Puncture Site Right radial ABG pH 7.27 L ABG pCO2 at Pt Temp 64.9 H* ABG pO2 at Pt Temp 66.9 L D ABG HCO3 28.7 H ABG O2 Sat (Measured) 91.3 ABG O2 Content 9.9 L* ABG Base Excess 1.8 Good Test Positive O2 Delivery Device Bipap Oxygen Flow Rate 40% Vent Mode S/t Vent Rate 22 PEEP 0.0 Pressure Support Vent 10/5 Sodium 136 Potassium 4.5 Chloride 98 Carbon Dioxide 27 Anion Gap 11 BUN 43 H D Creatinine 1.9 H D Random Glucose 188 H Calcium 8.5 Microbiology 04/13/17 15:20 Urine - Urine Clean Catch Urine Culture - Final 04/13/17 15:00 Blood - Peripheral Venous Blood Culture - Preliminary NO GROWTH OBTAINED AFTER 24 HOURS, INCUBATION TO CONTINUE FOR 4 DAYS. 04/13/17 15:00 Blood - Peripheral Venous Blood Culture - Preliminary NO GROWTH OBTAINED AFTER 24 HOURS, INCUBATION TO CONTINUE FOR 4 DAYS. ASSESSMENT AND PLAN: 61 yof with PMHx of morbid obesity, Diastolic HF, COPD, suspected DIRK, NIDDM, HTN, HLD, schizophrenia/bipolar disorder, frequent recent admissions with hypoxic/hypercapneic respiratory failure requiring Bipap/Intubation, last discharged on 04/03/2017 on home oxygen, oral steroid taper and lasix reports was doing well since her discharge (states is on Prednisone 30 mg currently) admitted with recurrent Acute hypoxic/hypercapneic respiratory failure, Diastolic HF exacerbation and Mild COPD -Acute hyopxic/hypercapneic respiratory failure exacerbation -Acute diastolic Heart failure exacerbation, likely from dietary +/- med non compliance -Acute mild COPD exacerbation -NIDDM -HTN -HLD -Schizophrenia/bipolar disorder -Morbid obesity -suspect DIRK, ?OHS Plan: Clinically more wheezy and short of breath today. Will increase steroids to 40 mg IV q8h. continue bipap for now. ABG within 48 hours of discharge to arrange for bipap or trilogy given recurrent admissions for the same. Monitor closely. LAsix 40 mg IV daily, diet compliance counselnig. Tn neg. No events on tele. No indication for repeat 2D echo currently. Continue zyprexa/lexapro. ISS, diabetic diet. Continue statin. GIPPX while on steroids DVTPPX with heparin Dispo pending improvement, will need PT eval once improved.
--- NOTE | 2017-04-15 14:42 | PN ---
Teaching Attending Note Name of Resident: Mirlande Katz ATTENDING PHYSICIAN STATEMENT I saw and evaluated the patient. I reviewed the resident's note and discussed the case with the resident. I agree with the resident's findings and plan as documented. SUBJECTIVE: OBJECTIVE: ASSESSMENT AND PLAN:
[2017-04-15 14:56] LABS: ARTERIAL BLOOD GAS BASE EXCESS 1.3 meq/l (-2-2); ARTERIAL BLOOD GAS PO2 88.3 mmHg (80-100)
[2017-04-15 15:04] LABS: ALLENS TEST POSITIVE
[2017-04-15 15:07] LABS: ARTERIAL BLOOD GAS PCO2 69.5 mmHg (35-45); ARTERIAL BLOOD GAS pH 7.24 (7.35-7.45)
[2017-04-15 20:48] LABS: ARTERIAL BLD GAS O2 SATURATION 96.1 % (90-98.9); ARTERIAL BLOOD GAS BASE EXCESS 2.1 meq/l (-2-2)
[2017-04-15 20:50] LABS: ALLENS TEST POSITIVE
[2017-04-15 20:51] LABS: ARTERIAL BLOOD GAS PCO2 72.3 mmHg (35-45); ARTERIAL BLOOD GAS pH 7.24 (7.35-7.45)
[2017-04-15 20:53] LABS: ARTERIAL BLOOD GAS PO2 89.3 mmHg (80-100)
--- NOTE | 2017-04-15 21:03 | PN ---
Physical Exam: SUBJECTIVE: Patient seen and examined. She is complaining of SOB, using Bi-Pap. No overnight events. OBJECTIVE: Vital Signs Period Temp Pulse Resp BP Sys/Osei Pulse Ox Last 24 Hr 97.3 F-98 F 20-86 20-28 106-155/56-90 94-98 GENERAL: The patient is awake, alert, and fully oriented, in moderate distress, on Bi-Pap. HEAD: Normal with no signs of trauma. EYES: PERRL, extraocular movements intact, sclera anicteric, conjunctiva clear. No ptosis. ENT: moist mucous membranes. NECK: Trachea midline, supple. LUNGS: Breath sounds equal, wheezing and rhales to auscultation bilaterally, no crackles HEART: Regular rate and rhythm, S1, S2 without murmur, rub or gallop. ABDOMEN: Soft, nontender, nondistended, normoactive bowel sounds EXTREMITIES: 2+ pulses, warm, trace edema. NEUROLOGICAL: Normal speech, gait not observed. PSYCH: Normal mood, normal affect. SKIN: Warm, dry, no rashes or lesions noted Laboratory Results - last 24 hr 04/15/17 04/15/17 04/15/17 05:48 05:48 14:45 WBC 6.9 D RBC 3.38 L Hgb 7.8 L Hct 26.7 L MCV 79.1 L MCH 23.0 L MCHC 29.0 L RDW 19.9 H Plt Count 302 MPV 7.1 L Anticoagulation Therapy Puncture Site Right radial ABG pH 7.24 L* ABG pCO2 at Pt Temp 69.5 H* ABG pO2 at Pt Temp 88.3 D ABG HCO3 28.8 H ABG O2 Sat (Measured) 96.0 ABG O2 Content 10.5 L ABG Base Excess 1.3 Good Test Positive O2 Delivery Device Bipap 10/5 Oxygen Flow Rate 40% Vent Mode Vent Rate 22 Mechanical Rate Pressure Support Vent Sodium 136 Potassium 4.5 Chloride 98 Carbon Dioxide 27 Anion Gap 11 BUN 43 H D Creatinine 1.9 H D Random Glucose 188 H Calcium 8.5 04/15/17 20:35 WBC RBC Hgb Hct MCV MCH MCHC RDW Plt Count MPV Anticoagulation Therapy Y Puncture Site Right radial ABG pH 7.24 L* ABG pCO2 at Pt Temp 72.3 H* ABG pO2 at Pt Temp 89.3 ABG HCO3 29.8 H ABG O2 Sat (Measured) 96.1 ABG O2 Content 10.9 L ABG Base Excess 2.1 H Good Test Positive O2 Delivery Device Bipap 20/8 Oxygen Flow Rate 40% Vent Mode Y Vent Rate 22 Mechanical Rate Y Pressure Support Vent Y Sodium Potassium Chloride Carbon Dioxide Anion Gap BUN Creatinine Random Glucose Calcium Active Medications Generic Name Dose Route Start Last Admin Trade Name Freq PRN Reason Stop Dose Admin Albuterol Sulfate 1 amp 04/13/17 17:46 Ventolin 0.083% Nebulizer Soln - NEB Q4H PRN SHORT OF BREATH/WHEEZING Albuterol/Ipratropium 1 amp 04/13/17 18:00 04/15/17 19:20 Duoneb - NEB 1 amp QIDR JOSLYN Administration Amlodipine Besylate 10 mg 04/14/17 10:00 04/15/17 10:36 Norvasc - PO 10 mg DAILY JOSLYN Administration Aspirin 81 mg 04/14/17 10:00 04/15/17 10:36 Ecotrin - PO 81 mg DAILY JOSLYN Administration Atorvastatin Calcium 40 mg 04/13/17 22:00 04/14/17 21:04 Lipitor - PO 40 mg HS JOSLYN Administration Carvedilol 12.5 mg 04/13/17 22:00 04/15/17 10:36 Coreg - PO 12.5 mg BID JOSLYN Administration Chlorhexidine Gluconate 1 applic 04/15/17 22:00 Hibiclens For Decolonization - TP HS JOSLYN Escitalopram Oxalate 20 mg 04/14/17 10:00 04/15/17 10:36 Lexapro - PO 20 mg DAILY JOSLYN Administration Ferrous Sulfate 325 mg 04/14/17 10:00 04/15/17 10:36 Feosol - PO 325 mg DAILY JOSLYN Administration Furosemide 40 mg 04/14/17 10:00 04/15/17 10:36 Lasix Injection - IVPUSH 40 mg DAILY JOSLYN Administration Guaifenesin 10 ml 04/14/17 15:28 04/14/17 16:15 Robitussin - PO 10 ml Q6H PRN Administration COUGH Heparin Sodium (Porcine) 5,000 unit 04/13/17 22:00 04/15/17 13:16 Heparin - SQ 5,000 unit TID JOSLYN Administration Hydralazine HCl 50 mg 04/13/17 22:00 04/15/17 13:16 Apresoline - PO 50 mg TID JOSLYN Administration Lisinopril 5 mg 04/14/17 10:00 04/15/17 10:36 Prinivil PO 5 mg DAILY JOSLYN Administration Methylprednisolone Sodium Succinate 60 mg 04/15/17 18:30 Solu-Medrol - IVPUSH Q6H JOSLYN Mupirocin 1 applic 04/15/17 22:00 Bactroban Ointment (For Decolonization) - NS 04/20/17 21:59 BID JOSLYN Olanzapine 10 mg 04/13/17 22:00 04/15/17 11:48 Zyprexa - PO 10 mg BID JOSLYN Administration ASSESSMENT/PLAN: 61yo F with h/o HTN, HLD, pre-diabetes, CAD, dCHF, hep c, CKD stage III-IV, COPD , schizophrenia, current smoker who is admitted for recurrent ccute hypoxic/ hypercapneic respiratory failure, Diastolic HF exacerbation and COPD exacerbation Acute hypoxic hypercapnic respiratory distress due to COPD exacerbation vs. dCHF exacerbation Repeat ABG todayshowed worsening acidosis with normal anion gap. Dr Macario was consulted. We discussed and pt was put for transfer to ICU. She was given Lasix 40 mg IV and her Solu-medrol was increased to 60 mg Q6H. Respiratory therapy was called and BIPap settings were changed to 20/8. Diastolic CHF continued b/l pitting edema Echo 03/27/17: L systolic normal size and function continue Lasix 40mg IV qdaily Strict I&O's; negativebalance 930 ml, melendez placed Daily weights HTN Continue home medication;Norvasc 10mg daily, Coreg 12.5 mg PO BID, Hydralazine 50mg TID Lisinopril 5mg qdaily Schizoprenia history Lexapro 20mg qDaily and Zyprexa 10mg PO BID SANTO; Cr worse today 1.9, BUN 43 we will order UA and electrolytes Pre-diabetes Diet counselling FEN: Fluids: Electrolytes abnormalities: Nutrition: Sodium and diet controlled PPX: DVT - Heparin SQ TID Dispo: Continue Tele monitoring, awaiting ICU transfer Code Status: Full code Problem List - Problems (1) Acute on chronic respiratory failure with hypoxia and hypercapnia Code(s): J96.21 - ACUTE AND CHRONIC RESPIRATORY FAILURE WITH HYPOXIA; J96.22 - ACUTE AND CHRONIC RESPIRATORY FAILURE WITH HYPERCAPNIA (2) Acute respiratory failure with hypoxia and hypercapnia Code(s): J96.01 - ACUTE RESPIRATORY FAILURE WITH HYPOXIA; J96.02 - ACUTE RESPIRATORY FAILURE WITH HYPERCAPNIA (3) CHF (congestive heart failure) Code(s): I50.9 - HEART FAILURE, UNSPECIFIED Qualifiers: Congestive heart failure type: unspecified congestive heart failure type Congestive heart failure chronicity: unspecified congestive heart failure chronicity Qualified Code(s): I50.9 - Heart failure, unspecified (4) COPD exacerbation Code(s): J44.1 - CHRONIC OBSTRUCTIVE PULMONARY DISEASE W (ACUTE) EXACERBATION (5) Acute on chronic diastolic (congestive) heart failure Code(s): I50.33 - ACUTE ON CHRONIC DIASTOLIC (CONGESTIVE) HEART FAILURE (6) Altered mental status Code(s): R41.82 - ALTERED MENTAL STATUS, UNSPECIFIED Qualifiers: Altered mental status type: unspecified Qualified Code(s): R41.82 - Altered mental status, unspecified (7) Chronic kidney insufficiency Code(s): N18.9 - CHRONIC KIDNEY DISEASE, UNSPECIFIED Qualifiers: Chronic kidney disease stage: unspecified stage Qualified Code(s): N18.9 - Chronic kidney disease, unspecified Visit type - Emergency Visit Emergency Visit: Yes ED Registration Date: 04/13/17 Care time: The patient presented to the Emergency Department on the above date and was hospitalized for further evaluation of their emergent condition. - New Patient This patient is new to me today: No - Critical Care Critical Care patient: No - Discharge Referral Referred to [facility] Med P.C.: No
[2017-04-15] MEDS: ATORVASTATIN CA 40 MG TABLET (FP) PO SCH (21:27)
[2017-04-15] MEDS ORDERED: CHLORHEXIDINE GLUCONATE 4% CLEANSER FOR DECOLONIZATION TP SCH (22:00)
[2017-04-15] MEDS ORDERED: MUPIROCIN 2% TOPICAL OINTMENT FOR DECOLONIZATION NS SCH (22:00)
[2017-04-16] MEDS: ALBUTEROL SO4 2.5/IPRATROPIUM 0.5 INH SOL 3 ML VIAL.NEB. NEB SCH ×4 (00:16→18:05)
[2017-04-16] MEDS: methylPREDNISolone NA SUCC 40 MG/1 ML VIAL IVPUSH SCH ×4 (00:17→21:15)
[2017-04-16] MEDS ORDERED: guaiFENesin 200 MG/10 ML 10 ML UNIT-DOSE CUPS PO PRN (02:27)
[2017-04-16] MEDS ORDERED: ALBUTEROL SO4 0.083% IH SOL 2.5 MG/3 ML VIAL.NEB. NEB PRN (02:27)
--- NOTE | 2017-04-16 03:37 | CONSULT ---
Consult Consult Specialty:: Pulm critical care Referred by:: Venkata Agosto Reason for Consultation:: Respiratory Failure - History of Present Illness Chief Complaint: SOB History of Present Illness: This is a 61 yo female w/ PMHx of morbid obesity, Diastolic HF, COPD, suspected DIRK, NIDDM, HTN, HLD, schizophrenia/bipolar d/o, multiple admissions for hypoxic and hypercapneic resp failure req'ing bipap and intubation in the past who presented to the ED on 04/13/17 w/c/o SOB and wheezing after eating at a [employer] republic[employer]. Of note, she was recently discharged on 04/03/2017 on home O2, an oral steroid taper and lasix and initially reported doing well since her discharge, now re-admitted with recurrent acute hypercapneic respiratory failure and Diastolic HF exacerbation. She was transferred to the medicine floor and managed with Bipap, lasix and steriods and was improving until 04/15 when she started to c/o wheezing and more SOB req'ing increased settings on Bipap and additional doses of lasix IV. ABG showed resp acidosis. Resp status tenuous, thus transferred to ICU for further management and possible intubation. Upon arrival to ICU, pt is alert and calm speaking in full sentences, but SOB on exertion. Expresses that her breathing feels better. On exam, denies CP, palpitations. No s3 or s4, +Rales, +non-productive wet cough, No wheezing. 3+ pitting edema to her LEs, warm extremities. Repeat ABG drawn and CXR ordered. Maintained on Bipap for now. 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: Yes: TIA Cardio/Vascular: Yes: HTN Pulmonary: Yes: COPD Gastrointestinal: No: Ascites, Cancer, Constipation, Crohn's Disease, Diverticulitis, Diverticulosis, Esophageal Varices, Gastritis, GERD, GI Bleed, Hemorrhoids, Hiatal Hernia, Inflamatory Bowel Disease, Irritable Bowel Disease, Pancreatitis, Peptic Ulcer Disease, Ulcerative Colitis, Other Renal/: Yes: Renal Inusuff Reproductive: Yes: Other (s/p hysterectomy) Heme/Onc: No: Anemia, B12 Deficiency, Bleeding Disorder, Cancer, Current Chemotherapy, Current Radiation Therapy, Hemochromatosis, Hypercoaguable State, Myeloproliferative Synd, Sickle Cell Disease, Sickle Cell Trait, Thrombocytopenia, Other Infectious Disease: Yes: Other (HCV). No: AIDS, C-Diff, Herpes Zoster, HIV, MRSA, STD's, Tuberculosis, VREF Psych: Yes: Bipolar, Schizophrenia Musculoskeletal: No: Bursitis, Chronic low back pain, Hemiparesis, Hemiplegia, Osteoarthritis, Paraplegia, Other Rheumatology: No: Fibromyalgia, Gout, Lupus, Rheumatoid Arthritis, Sarcoidosis, Vasculitis, Other ENT: No: Allergic Rhinitis, Sinusitis, Other Endocrine: Yes: Diabetes Mellitus Dermatology: No: Basal Cell, Cellulitis, Eczema, Melanoma, Psoriasis, Squamous Cell, Other - Past Surgical History Past Surgical History: Yes: Hysterectomy - Alcohol/Substance Use Hx Alcohol Use: No History of Substance Use: reports: None - Smoking History Smoking history: Current every day smoker Have you smoked in the past 12 months: Yes Aproximately how many cigarettes per day: 4 - Social History Usual Living Arrangement: Alone ADL: Support Services History of Recent Travel: No Home Medications - Allergies Allergies/Adverse Reactions: Allergies Allergy/AdvReac Type Severity Reaction Status Date / Time ibuprofen [From Motrin IB] Allergy Verified 04/13/17 14:16 metformin Allergy Verified 04/13/17 14:16 Penicillins Allergy Verified 04/13/17 14:16 - Home Medications Home Medications: Ambulatory Orders Escitalopram Oxalate [Lexapro -] 20 mg PO DAILY 09/14/15 Olanzapine [Zyprexa -] 10 mg PO BID 09/14/15 Aspirin Coated [Ecotrin -] 81 mg PO DAILY #30 tablet.ec 09/16/15 Amlodipine Besylate [Norvasc -] 10 mg PO DAILY 02/25/16 Carvedilol [Coreg -] 12.5 mg PO BID 02/25/16 Hydralazine HCl [Apresoline -] 50 mg PO TID 02/25/16 Albuterol Sulfate Inhaler - [Ventolin HFA Inhaler -] 2 inh PO Q4H PRN #1 inh Ferrous Sulfate [Feosol] 325 mg PO DAILY #14 ud 03/29/17 Furosemide [Lasix] 40 mg PO DAILY #14 tablet 03/29/17 Lisinopril [Prinivil] 5 mg PO DAILY #14 tablet 03/29/17 Atorvastatin Ca [Lipitor] 40 mg PO DAILY 04/01/17 Prednisone See Taper PO DAILY #30 tablet 04/03/17 Family Disease History - Family Disease History Family Disease History: Heart Disease: Father ( in 40s) Physical Exam Vital Signs: Vital Signs Temperature 97.3 F L 04/15/17 20:25 Pulse Rate 77 04/15/17 20:25 Respiratory Rate 20 04/15/17 20:25 Blood Pressure 155/90 04/15/17 20:25 O2 Sat by Pulse Oximetry (%) 99 04/15/17 22:00 Constitutional: Yes: No Distress, Calm, Obese Eyes: Yes: WNL, EOM Intact, PERRL HENT: Yes: WNL Neck: Yes: WNL Cardiovascular: Yes: WNL, Regular Rate and Rhythm. No: Gallop Respiratory: Yes: On BiPap, Rales, SOB on Exertion Gastrointestinal: Yes: WNL, Normal Bowel Sounds, Soft ...Rectal Exam: Yes: Deferred Renal/: Yes: Other (ESRD) Breast(s): Yes: WNL Musculoskeletal: Yes: WNL Extremities: Yes: Other (warm extremities) Edema: Yes Edema: LUE: Trace, RUE: Trace, LLE: 2+, RLE: 2+ Integumentary: Yes: WNL Neurological: Yes: WNL, Alert, Oriented ...Motor Strength: WNL Psychiatric: Yes: Alert, Oriented Labs: CBC, BMP 04/15/17 05:48 04/15/17 05:48 Imaging - Results Chest X-ray: Pending (awaiting cxr) Problem List - Problems (1) Acute on chronic respiratory failure with hypoxia and hypercapnia Code(s): J96.21 - ACUTE AND CHRONIC RESPIRATORY FAILURE WITH HYPOXIA; J96.22 - ACUTE AND CHRONIC RESPIRATORY FAILURE WITH HYPERCAPNIA (2) CHF (congestive heart failure) Code(s): I50.9 - HEART FAILURE, UNSPECIFIED Qualifiers: Congestive heart failure type: unspecified congestive heart failure type Congestive heart failure chronicity: unspecified congestive heart failure chronicity Qualified Code(s): I50.9 - Heart failure, unspecified (3) COPD exacerbation Code(s): J44.1 - CHRONIC OBSTRUCTIVE PULMONARY DISEASE W (ACUTE) EXACERBATION (4) Chronic kidney insufficiency Code(s): N18.9 - CHRONIC KIDNEY DISEASE, UNSPECIFIED Qualifiers: Chronic kidney disease stage: unspecified stage Qualified Code(s): N18.9 - Chronic kidney disease, unspecified (5) Leg edema Code(s): R60.0 - LOCALIZED EDEMA Assessment/Plan This is a 61 yo female w/ PMHx of morbid obesity, Diastolic HF, COPD, suspected DIRK, NIDDM, HTN, HLD, schizophrenia/bipolar d/o, multiple admissions for hypoxic and hypercapneic resp failure req'ing bipap and intubation in the past. She was recently discharged on 04/03/2017 on home O2, an oral steroid taper and lasix and initially reported doing well since her discharge, now re-admitted with recurrent acute hypercapneic respiratory failure and Diastolic HF exacerbation. Pulm: h/o COPD and ?DIRK now w/ acute hypercapneic respiratory failure w/ HF exacerbation req'ing BiPAP - methylpred to 40 mg IV q8h - nebs PRN - continue bipap for now - f/u ABG 0500 ABG = 7.35/53.1/98.3 - diuresis CV: h/o Diastolic HF, CAD, HTN, HL now in acute exacerbation most likely in the setting of dietary and/or medication adherence - lasix - echo - EKG - BNP - Continue statin - trend CMP Renal: h/o ESRD but making urine - monitor I & O GI/Endo: h/o NIDDM -Insulin sliding scale when starts diet -f/s - NPO for now while on BIPAP Neuro/psych: h/o Schziophrenia bipolar - cont home zyprexa/lexapro PPx: - Protonix - Heparin s.c.
[2017-04-16 04:24] LABS: ARTERIAL BLOOD GAS BASE EXCESS 3.2 meq/l (-2-2); ARTERIAL BLOOD GAS PCO2 53.1 mmHg (35-45); ARTERIAL BLOOD GAS PO2 98.3 mmHg (80-100); ARTERIAL BLOOD GAS pH 7.35 (7.35-7.45)
[2017-04-16 04:29] LABS: ALLENS TEST POSITIVE
[2017-04-16] MEDS ORDERED: methylPREDNISolone NA SUCC 125 MG/2 ML VIAL ONE (05:20)
[2017-04-16] MEDS: HEPARIN NA (PORCINE) 5,000 UNITS/ML 1ML VIAL SQ SCH ×3 (05:21→21:15)
[2017-04-16] MEDS: hydrALAZINE HCL 50 MG TABLET (FP) PO SCH ×3 (05:21→21:15)
[2017-04-16 06:27] LABS: BASO % 0.2 % (0-2.0); HEMATOCRIT 26.5 % (32.4-45.2); LYMPH % 6.6 % (8-40); MCH 23.6 pg (25.7-33.7); MCHC 30.1 g/dl (32.0-36.0); MEAN CELL VOLUME 78.4 fl (80-96); MEAN PLT VOLUME 7.3 fl (7.5-11.1); MONO % 3.6 % (3.8-10.2); NEUT % 89.6 % (42.8-82.8); PLATELET COUNT 328 K/MM3 (134-434); RBC 3.38 M/mm3 (3.60-5.2); RDW 20.2 % (11.6-15.6); WHITE BLOOD COUNT 4.7 K/mm3 (4.0-10.0)
[2017-04-16 06:56] LABS: CHLORIDE 100 mmol/L (98-107); POTASSIUM 4.3 mmol/L (3.5-5.1); SODIUM 138 mmol/L (136-145)
[2017-04-16 07:01] LABS: ANION GAP 9 (8-16); BLOOD UREA NITROGEN 41 mg/dL (7-18); CALCIUM 8.3 mg/dL (8.5-10.1); CO2 29 mmol/L (21-32); CREATININE 1.7 mg/dL (0.55-1.02); GLUCOSE,RANDOM 217 mg/dL (74-106)
[2017-04-16 08:02] LABS: ALLENS TEST POSITIVE; ARTERIAL BLD GAS O2 SATURATION 98.9 % (90-98.9); ARTERIAL BLOOD GAS BASE EXCESS 4.7 meq/l (-2-2); ARTERIAL BLOOD GAS PCO2 56.2 mmHg (35-45); ARTERIAL BLOOD GAS pH 7.35 (7.35-7.45)
[2017-04-16] MEDS ORDERED: LISINOPRIL 5 MG TABLET (FP) PO SCH (10:00)
[2017-04-16] MEDS ORDERED: amLODIPine BESYLATE 10 MG TABLET (FP) PO SCH (10:00)
[2017-04-16] MEDS ORDERED: ESCITALOPRAM OXALATE 20 MG TABLET (FP) PO SCH (10:00)
[2017-04-16] MEDS ORDERED: FUROSEMIDE 40 MG/4 ML INJECTABLE VIAL IVPUSH SCH ×2 (10:00→14:00)
[2017-04-16] MEDS ORDERED: ASPIRIN COATED 81 MG TABLET.EC PO SCH (10:00)
[2017-04-16] MEDS ORDERED: FERROUS SO4 325 MG TABLET (FP) PO SCH (10:00)
[2017-04-16] MEDS ORDERED: PT OWN MED DRAWER 7, Y5N ONE (10:08)
[2017-04-16] MEDS: CARVEDILOL 12.5 MG TABLET (FP) PO SCH ×2 (10:12→21:15)
[2017-04-16] MEDS: OLANZapine 10 MG TABLET PO SCH ×2 (10:13→21:42)
--- NOTE | 2017-04-16 16:45 | PN ---
Teaching Attending Note Name of Resident: . ATTENDING PHYSICIAN STATEMENT Time of evaluation: 9:20 AM SUBJECTIVE: patient seen and examined. Breathing improved, on bipap, asking for food. OBJECTIVE: Vital Signs Period Temp Pulse Resp BP Sys/Osei Pulse Ox Last 24 Hr 97.3 F-97.6 F 68-79 18-23 107-180/64-99 97-99 Intake & Output 04/13/17 04/14/17 04/15/17 04/16/17 23:59 23:59 23:59 23:59 Intake Total 405 584 0 Output Total 2400 550 3200 1500 Balance -9943 -584 -2616 -1500 Weight 240 lb 249 lb 12.8 oz 249 lb 12 oz 270 lb General: sitting in bed on bipap with improved respiratory state, no longer in distress CVs:S1S2 regular Chest: improved air entry today, occasional wheezing Abdomen: soft, obese, NT Extremities: improved pedal edema Home Medication List Medication Instructions Recorded Confirmed Type Escitalopram Oxalate [Lexapro -] 20 mg PO DAILY 09/14/15 04/13/17 History Olanzapine [Zyprexa -] 10 mg PO BID 09/14/15 04/13/17 History Amlodipine Besylate [Norvasc -] 10 mg PO DAILY 02/25/16 04/13/17 History Carvedilol [Coreg -] 12.5 mg PO BID 02/25/16 04/13/17 History Hydralazine HCl [Apresoline -] 50 mg PO TID 02/25/16 04/13/17 History Atorvastatin Ca [Lipitor] 40 mg PO DAILY 04/01/17 04/13/17 History Active Medications Generic Name Dose Route Start Last Admin Trade Name Freq PRN Reason Stop Dose Admin Albuterol Sulfate 1 amp 04/16/17 02:27 Ventolin 0.083% Nebulizer Soln - NEB Q4H PRN SHORT OF BREATH/WHEEZING Albuterol/Ipratropium 1 amp 04/16/17 06:00 04/16/17 12:20 Duoneb - NEB 1 amp QIDR JOSLYN Administration Amlodipine Besylate 10 mg 04/16/17 10:00 04/16/17 10:12 Norvasc - PO 10 mg DAILY JOSLYN Administration Aspirin 81 mg 04/16/17 10:00 04/16/17 10:13 Ecotrin - PO 81 mg DAILY JOSLYN Administration Atorvastatin Calcium 40 mg 04/16/17 22:00 Lipitor - PO HS JOSLYN Carvedilol 12.5 mg 04/16/17 10:00 04/16/17 10:12 Coreg - PO 12.5 mg BID JOSLYN Administration Escitalopram Oxalate 20 mg 04/16/17 10:00 04/16/17 10:12 Lexapro - PO 20 mg DAILY JOSLYN Administration Ferrous Sulfate 325 mg 04/16/17 10:00 04/16/17 10:12 Feosol - PO 325 mg DAILY JOSLYN Administration Furosemide 40 mg 04/16/17 14:00 04/16/17 15:15 Lasix Injection - IVPUSH 40 mg BID@0600,1400 JOSLYN Administration Guaifenesin 10 ml 04/16/17 02:27 04/16/17 15:16 Robitussin - PO 10 ml Q6H PRN Administration COUGH Heparin Sodium (Porcine) 5,000 unit 04/16/17 06:00 04/16/17 15:15 Heparin - SQ 5,000 unit TID JOSLYN Administration Hydralazine HCl 50 mg 04/16/17 06:00 04/16/17 15:15 Apresoline - PO 50 mg TID JOSLYN Administration Lisinopril 5 mg 04/16/17 10:00 04/16/17 10:13 Prinivil PO 5 mg DAILY JOSLYN Administration Methylprednisolone Sodium Succinate 60 mg 04/16/17 07:00 04/16/17 15:15 Solu-Medrol - IVPUSH 60 mg Q6H-IV JOSLYN Administration Olanzapine 10 mg 04/16/17 10:00 04/16/17 10:13 Zyprexa - PO 10 mg BID JOSLYN Administration Laboratory Results - last 24 hr 04/15/17 04/16/17 04/16/17 20:35 04:00 05:00 WBC 4.7 D RBC 3.38 L Hgb 8.0 L Hct 26.5 L MCV 78.4 L MCH 23.6 L MCHC 30.1 L RDW 20.2 H Plt Count 328 MPV 7.3 L Neutrophils % 89.6 H Lymphocytes % 6.6 L D Monocytes % 3.6 L Eosinophils % 0.0 Basophils % 0.2 Anticoagulation Therapy Y Y Puncture Site Right radial Right radial ABG pH 7.24 L* 7.35 ABG pCO2 at Pt Temp 72.3 H* 53.1 H D ABG pO2 at Pt Temp 89.3 98.3 ABG HCO3 29.8 H 28.7 H ABG O2 Sat (Measured) 96.1 98.0 ABG O2 Content 10.9 L 10.7 L ABG Base Excess 2.1 H 3.2 H Good Test Positive Positive O2 Delivery Device Bipap 20/8 Bipap Oxygen Flow Rate 40% 40% Vent Mode Y Y Vent Rate 22 22 Mechanical Rate Y Y Pressure Support Vent Y 20/8 Sodium Potassium Chloride Carbon Dioxide Anion Gap BUN Creatinine Random Glucose Calcium Urine Osmolality Ur Random Sodium Ur Random Potassium Ur Random Chloride 04/16/17 04/16/17 04/16/17 05:00 05:30 05:30 WBC RBC Hgb Hct MCV MCH MCHC RDW Plt Count MPV Neutrophils % Lymphocytes % Monocytes % Eosinophils % Basophils % Anticoagulation Therapy Puncture Site ABG pH ABG pCO2 at Pt Temp ABG pO2 at Pt Temp ABG HCO3 ABG O2 Sat (Measured) ABG O2 Content ABG Base Excess Good Test O2 Delivery Device Oxygen Flow Rate Vent Mode Vent Rate Mechanical Rate Pressure Support Vent Sodium 138 Potassium 4.3 Chloride 100 Carbon Dioxide 29 Anion Gap 9 BUN 41 H Creatinine 1.7 H Random Glucose 217 H Calcium 8.3 L Urine Osmolality 204 L Ur Random Sodium 15 Ur Random Potassium 10.5 Ur Random Chloride 15 04/16/17 07:30 WBC RBC Hgb Hct MCV MCH MCHC RDW Plt Count MPV Neutrophils % Lymphocytes % Monocytes % Eosinophils % Basophils % Anticoagulation Therapy Y Puncture Site Y ABG pH 7.35 ABG pCO2 at Pt Temp 56.2 H ABG pO2 at Pt Temp 128.0 H D ABG HCO3 30.5 H ABG O2 Sat (Measured) 98.9 ABG O2 Content 11.3 L ABG Base Excess 4.7 H Good Test Positive O2 Delivery Device Bipap Oxygen Flow Rate 40% Vent Mode Y Vent Rate 22 Mechanical Rate Y Pressure Support Vent Y Sodium Potassium Chloride Carbon Dioxide Anion Gap BUN Creatinine Random Glucose Calcium Urine Osmolality Ur Random Sodium Ur Random Potassium Ur Random Chloride Microbiology 04/13/17 15:00 Blood - Peripheral Venous Blood Culture - Preliminary NO GROWTH OBTAINED AFTER 72 HOURS, INCUBATION TO CONTINUE FOR 2 DAYS. 04/13/17 15:00 Blood - Peripheral Venous Blood Culture - Preliminary NO GROWTH OBTAINED AFTER 72 HOURS, INCUBATION TO CONTINUE FOR 2 DAYS. 04/13/17 15:20 Urine - Urine Clean Catch Urine Culture - Final CXR - worsening congestion from yesterday ASSESSMENT AND PLAN: 61 yof with PMHx of morbid obesity, Diastolic HF, COPD, suspected DIRK, NIDDM, HTN, HLD, schizophrenia/bipolar disorder, frequent recent admissions with hypoxic/hypercapneic respiratory failure requiring Bipap/Intubation, last discharged on 04/03/2017 on home oxygen, oral steroid taper and lasix reports was doing well since her discharge (states is on Prednisone 30 mg currently) admitted with recurrent Acute hypoxic/hypercapneic respiratory failure, Diastolic HF exacerbation and Mild COPD -Acute hyopxic/hypercapneic respiratory failure -Acute diastolic Heart failure exacerbation, likely from dietary +/- med non compliance -Acute COPD exacerbation -NIDDM -HTN -HLD -Schizophrenia/bipolar disorder -Morbid obesity -suspect DIRK, ?OHS Plan: Transferred to ICU overnight 04/15 given worsening respiratory symptoms and concerning blood gas while on bipap. Seems better today. CXR worse from before. Diuresing well, Increase lasix to 40 mg IV BID. BP control Taper solumerol to 40 mg IV q8h. Bipap hs and prn, setting 13/12. ICU input noted, plan for transfer out of ICU. repeat ABG off bipap. Concerns for unprescribed benzo use on prior admit, also on vicodin prn. Drug screen pos for opioids this admission. Tn neg. No events on tele. No indication for repeat 2D echo currently. Continue zyprexa/lexapro. ISS, diabetic diet. Continue statin. GIPPX while on steroids DVTPPX with heparin Dispo clinically improved. Repeat ABG. plan for transfer out of ICU. ABG within 48 hours of discharge to arrange for bipap or trilogy given recurrent admissions for the same. total critical care time spent in ICU 35 min.
[2017-04-16 17:56] LABS: ARTERIAL BLD GAS O2 SATURATION 86.4 % (90-98.9)
[2017-04-16 17:59] LABS: ARTERIAL BLOOD GAS PCO2 63.7 mmHg (35-45); ARTERIAL BLOOD GAS PO2 56.2 mmHg (80-100)
[2017-04-16 18:00] LABS: ALLENS TEST POSITIVE; ARTERIAL BLOOD GAS pH 7.32 (7.35-7.45)
[2017-04-16] MEDS ORDERED: ATORVASTATIN CA 40 MG TABLET (FP) PO SCH (22:00)
[2017-04-17] MEDS: ALBUTEROL SO4 2.5/IPRATROPIUM 0.5 INH SOL 3 ML VIAL.NEB. NEB SCH ×5 (00:21→23:19)
[2017-04-17] MEDS: methylPREDNISolone NA SUCC 40 MG/1 ML VIAL IVPUSH SCH ×5 (02:43→21:45)
[2017-04-17] MEDS ORDERED: guaiFENesin 200 MG/10 ML 10 ML UNIT-DOSE CUPS PO PRN (04:46)
[2017-04-17] MEDS ORDERED: ALBUTEROL SO4 0.083% IH SOL 2.5 MG/3 ML VIAL.NEB. NEB PRN (04:46)
[2017-04-17] MEDS: HEPARIN NA (PORCINE) 5,000 UNITS/ML 1ML VIAL SQ SCH ×3 (06:00→21:45)
[2017-04-17] MEDS: hydrALAZINE HCL 50 MG TABLET (FP) PO SCH ×3 (06:00→21:45)
[2017-04-17] MEDS: FUROSEMIDE 40 MG/4 ML INJECTABLE VIAL IVPUSH SCH ×2 (06:01→13:29)
[2017-04-17 07:47] LABS: BASO % 0.3 % (0-2.0); HEMATOCRIT 27.6 % (32.4-45.2); HEMOGLOBIN 8.2 GM/dL (10.7-15.3); LYMPH % 4.3 % (8-40); MCHC 29.8 g/dl (32.0-36.0); MEAN PLT VOLUME 7.1 fl (7.5-11.1); MONO % 6.2 % (3.8-10.2); NEUT % 89.2 % (42.8-82.8); PLATELET COUNT 301 K/MM3 (134-434); RBC 3.59 M/mm3 (3.60-5.2); RDW 19.9 % (11.6-15.6); WHITE BLOOD COUNT 5.7 K/mm3 (4.0-10.0)
[2017-04-17] MEDS ORDERED: PT OWN MED DRAWER 7, Y5N ONE (08:04)
--- NOTE | 2017-04-17 08:19 | PN ---
Physical Exam: SUBJECTIVE: Patient seen and examined by me at bedside. Patient is currently on BIPAP and in no acute distress. She does report having shortness of breath earlier today and was placed back on the BIPAP. She denies any chest pain, palpitations, headaches, acute vision changes, abdominal pain, nausea, vomiting , diarrhea. OBJECTIVE: Vital Signs Period Temp Pulse Resp BP Sys/Osei Pulse Ox Last 24 Hr 97.4 F-98.2 F 68-83 15-22 134-175/56-84 94-99 GENERAL: The patient is awake, alert, and fully oriented, in no acute distress. NECK: Trachea midline, full range of motion, supple. LUNGS: Decreased breath sounds with some accessory muscle use on BIPAP but has improved HEART: Regular rate and rhythm without murmur, rub or gallop. ABDOMEN: Soft, nontender, nondistended, normoactive bowel sounds, no guarding, no rebound. EXTREMITIES: 2+ pulses, warm, well-perfused, 1+ pitting edema of LE bilaterally Laboratory Results - last 24 hr 04/16/17 04/16/17 04/16/17 05:30 05:30 17:43 WBC RBC Hgb Hct MCV MCH MCHC RDW Plt Count MPV Neutrophils % Lymphocytes % Monocytes % Eosinophils % Basophils % Puncture Site Right radial ABG pH 7.32 L ABG pCO2 at Pt Temp 63.7 H* ABG pO2 at Pt Temp 56.2 L D ABG HCO3 31.6 H ABG O2 Sat (Measured) 86.4 L ABG O2 Content 10.1 L ABG Base Excess 5.0 H Good Test Positive O2 Delivery Device Nasal cannula Oxygen Flow Rate 4l Urine Osmolality 204 L Ur Random Sodium 15 Ur Random Potassium 10.5 Ur Random Chloride 15 04/17/17 05:45 WBC 5.7 RBC 3.59 L Hgb 8.2 L Hct 27.6 L MCV 77.0 L MCH 23.0 L MCHC 29.8 L RDW 19.9 H Plt Count 301 MPV 7.1 L Neutrophils % 89.2 H Lymphocytes % 4.3 L D Monocytes % 6.2 Eosinophils % 0.0 Basophils % 0.3 Puncture Site ABG pH ABG pCO2 at Pt Temp ABG pO2 at Pt Temp ABG HCO3 ABG O2 Sat (Measured) ABG O2 Content ABG Base Excess Good Test O2 Delivery Device Oxygen Flow Rate Urine Osmolality Ur Random Sodium Ur Random Potassium Ur Random Chloride Active Medications Generic Name Dose Route Start Last Admin Trade Name Freq PRN Reason Stop Dose Admin Albuterol Sulfate 1 amp 04/17/17 04:46 Ventolin 0.083% Nebulizer Soln - NEB Q4H PRN SHORT OF BREATH/WHEEZING Albuterol/Ipratropium 1 amp 04/17/17 06:00 04/17/17 07:02 Duoneb - NEB 1 amp QIDR [facility] Administration Amlodipine Besylate 10 mg 04/17/17 10:00 Norvasc - PO DAILY [facility] Aspirin 81 mg 04/17/17 10:00 Ecotrin - PO DAILY [facility] Atorvastatin Calcium 40 mg 04/17/17 22:00 Lipitor - PO HS [facility] Carvedilol 12.5 mg 04/17/17 10:00 Coreg - PO BID [facility] Escitalopram Oxalate 20 mg 04/17/17 10:00 Lexapro - PO DAILY [facility] Ferrous Sulfate 325 mg 04/17/17 10:00 Feosol - PO DAILY [facility] Furosemide 40 mg 04/17/17 06:00 04/17/17 06:01 Lasix Injection - IVPUSH 40 mg BID@0600,1400 [facility] Administration Guaifenesin 10 ml 04/17/17 04:46 Robitussin - PO Q6H PRN COUGH Heparin Sodium (Porcine) 5,000 unit 04/17/17 06:00 04/17/17 06:00 Heparin - SQ 5,000 unit TID [facility]OS[facility] Administration Hydralazine HCl 50 mg 04/17/17 06:00 04/17/17 06:00 Apresoline - PO 50 mg TID [facility] Administration Lisinopril 5 mg 04/17/17 10:00 Prinivil PO DAILY [facility] Methylprednisolone Sodium Succinate 40 mg 04/16/17 17:39 04/17/17 04:15 Solu-Medrol - IVPUSH 40 mg Q6H-IV [facility] Administration Olanzapine 10 mg 04/17/17 10:00 Zyprexa - PO BID [facility] ASSESSMENT/PLAN: 61 year old female who presented for shortness of breath and was found to have acute respiratory failure. Patient admitted for further monitoring and management. Acute Hypoxic Hypercapneic Respiratory Failure -Likely secondary to CHF and COPD exacerbation -Continue DuoNeb QID -Continue Solu-medrol 40mg Q6H -Continue with BIPAP and will attempt to place back on Nasal cannula if tolerated Acute on Chronic Diastolic CHF -Continue Lasix 40mg IVP BID -Daily weights and strict I&O's -ECHO showed normal LVEF function HTN -Has improved since yesterday but will continue to monitor. If it continues to trend up will increase Lisinopril -Continue Amlodipine 10mg daily -Continue Lisinopril 5mg daily -Continue Hydralazine 50mg TID -Continue Coreg 12.5mg BID HLD -Continue Lipitor 40mg daily Iron Deficiency Anemia -Hemoglobin is currently stable and at baseline -Continue Ferrous Sulfate 325mg daily HyperGlycemia -Likely steroid induced -A1C 6.2 -Started on BGM and ISS today SANTO- Improved -Likely secondary from sepsis -Continue to monitor BMP Nicotine Dependence -Patient was counseled on the risks of smoking -Nicotine patch offered but refused Schizophrenia/Bipolar Disorder -Continue Zyprexa 10mg BID -Continue Lexapro 20mg daily Morbid Obesity -Patient counseled on weight loss as well as dietary and life modifications -Will refer to bariatric as outpatient F/E/N -On no fluids -Electrolytes wnl -Sodium controlled diet Prophylaxis -High risk. Heparin 5000 units SQ Q8H -No GI required Disposition -Full code -Patient still requires BIPAP and will require another night in telemetry Visit type - Emergency Visit Emergency Visit: Yes ED Registration Date: 04/13/17 Care time: The patient presented to the Emergency Department on the above date and was hospitalized for further evaluation of their emergent condition. - New Patient This patient is new to me today: Yes Date on this admission: 04/17/17 - Critical Care Critical Care patient: No
[2017-04-17 08:20] LABS: ALBUMIN 3.1 g/dl (3.4-5.0); ANION GAP 10 (8-16); BLOOD UREA NITROGEN 38 mg/dL (7-18); CALCIUM 8.7 mg/dL (8.5-10.1); CHLORIDE 98 mmol/L (98-107); CO2 30 mmol/L (21-32); GLUCOSE,RANDOM 253 mg/dL (74-106); PHOSPHOROUS 2.7 mg/dL (2.5-4.9); POTASSIUM 4.1 mmol/L (3.5-5.1); SGOT/AST 9 U/L (15-37); SGPT/ALT 36 U/L (12-78); SODIUM 138 mmol/L (136-145)
[2017-04-17 08:25] LABS: ALK PHOS 122 U/L (45-117); BILIRUBIN,TOTAL 0.4 mg/dL (0.2-1.0); CREATININE 1.4 mg/dL (0.55-1.02); N-TERMINAL BNP 1782.17 pg/ml (5-125); TOT PROT 6.8 g/dl (6.4-8.2)
[2017-04-17] MEDS: OLANZapine 10 MG TABLET PO SCH ×2 (09:01→21:49)
[2017-04-17] MEDS: ASPIRIN COATED 81 MG TABLET.EC PO SCH (09:01)
[2017-04-17] MEDS: CARVEDILOL 12.5 MG TABLET (FP) PO SCH ×2 (09:01→21:45)
[2017-04-17] MEDS: LISINOPRIL 5 MG TABLET (FP) PO SCH (09:01)
[2017-04-17] MEDS: ESCITALOPRAM OXALATE 20 MG TABLET (FP) PO SCH (09:01)
[2017-04-17] MEDS: amLODIPine BESYLATE 10 MG TABLET (FP) PO SCH (09:01)
[2017-04-17] MEDS: FERROUS SO4 325 MG TABLET (FP) PO SCH (09:02)
--- NOTE | 2017-04-17 09:50 | PN ---
Teaching Attending Note Name of Resident: Margie Sunshine ATTENDING PHYSICIAN STATEMENT I saw and evaluated the patient. I reviewed the resident's note and discussed the case with the resident. I agree with the resident's findings and plan as documented. SUBJECTIVE:states breathing has improved now back on bipap. states she was feeling dypnic earlier and was told her oxygen was low and placed back on machine. now requesting to be taken off so she can eat. denies CP, fever, chills , cough, N/V/C/D claims medication compliance but does not know what she takes. OBJECTIVE: Last Vital Signs Temp Pulse Resp BP Pulse Ox 98.0 F 68 18 137/70 94 L 04/17/17 07:10 04/17/17 07:10 04/17/17 07:13 04/17/17 07:10 04/17/17 07:13 Intake & Output 04/14/17 04/15/17 04/16/17 04/17/17 23:59 23:59 23:59 23:59 Intake Total 405 584 750 25 Output Total 550 3200 6300 2100 Balance -145 -2616 -6610 -2075 Weight 249 lb 12.8 oz 249 lb 12 oz 270 lb General NAD CV S1 S2 Lungs decreased breath sounds bases, poor inspiratory effort Abdomen soft NT/ND Extremities 1+ pitting edema B/L LE ASSESSMENT AND PLAN: 61 yo F with PMHx of morbid obesity, Diastolic HF, COPD, suspected DIRK, NIDDM, HTN, HLD, schizophrenia/bipolar disorder, frequent recent admissions with hypoxic/hypercapnic respiratory failure requiring Bipap/Intubation, last discharged on 04/03/2017 on home oxygen, oral steroid taper and lasix reports was doing well since her discharge (states is on Prednisone 30 mg currently) admitted with recurrent Acute hypoxic/hypercapneic respiratory failure, Diastolic HF exacerbation and Mild COPD 1. Acute hyopxic/hypercapnic respiratory failure- due to diastolic CHF exacerbation vs COPD. as per RN desaturated to 89%. will take off bipap as currently 100% and attempt NC again. if able to tolerate can allow pt to eat. will cont steroids at current dosing. on lasix 40mg BID. CXR showing congestion but improved. does not know baseline weight. will likely benefit from Triology device with frequent hospitalization. pulm on board 2. HTN- improved since yesterday. will cont to monitor. may require to increase medications if remains above goal 3. Iron def anemia- Hgb stable. cont iron supplements. no indication for transfusion 4. Hyperglycemia- a1c 6.2, likely steroid induced. start on BGM and iss while hospitalized and on steroids 5. SANTO- improved. cont current management 6. Continuous nicotine depdence- refused nicotine patch. states she has desire to "eventually" quit. states she is cutting back. counseled on risks of continued smoking and worsening pulmonary status 7. Schizophrenia/bipolar disorder- zyprexa 8. Morbid obesity- counseled on weight loss and dietary modifications. bariatric referral as outpatient. 9. suspect DIRK, ?OHS 10. DVT ppx- hep sq
--- NOTE | 2017-04-17 10:21 | PN ---
Progress Note, Physician History of Present Illness: PULMONARY FEELING BETTER,ON BIPAP,-RESP DISTRESS - Current Medication List Current Medications: Active Medications Albuterol Sulfate (Ventolin 0.083% Nebulizer Soln -) 1 amp NEB Q4H PRN PRN Reason: SHORT OF BREATH/WHEEZING Albuterol/Ipratropium (Duoneb -) 1 amp NEB QIDR [facility] Last Admin: 04/17/17 07:02 Dose: 1 amp Amlodipine Besylate (Norvasc -) 10 mg PO DAILY [facility] Last Admin: 04/17/17 09:01 Dose: 10 mg Aspirin (Ecotrin -) 81 mg PO DAILY [facility] Last Admin: 04/17/17 09:01 Dose: 81 mg Atorvastatin Calcium (Lipitor -) 40 mg PO [facility] Carvedilol (Coreg -) 12.5 mg PO BID [facility] Last Admin: 04/17/17 09:01 Dose: 12.5 mg Escitalopram Oxalate (Lexapro -) 20 mg PO DAILY [facility] Last Admin: 04/17/17 09:01 Dose: 20 mg Ferrous Sulfate (Feosol -) 325 mg PO DAILY [facility] Last Admin: 04/17/17 09:02 Dose: 325 mg Furosemide (Lasix Injection -) 40 mg IVPUSH BID@0600,1400 [facility] Last Admin: 04/17/17 06:01 Dose: 40 mg Guaifenesin (Robitussin -) 10 ml PO Q6H PRN PRN Reason: COUGH Heparin Sodium (Porcine) (Heparin -) 5,000 unit SQ TID [facility] Last Admin: 04/17/17 06:00 Dose: 5,000 unit Hydralazine HCl (Apresoline -) 50 mg PO TID [facility] Last Admin: 04/17/17 06:00 Dose: 50 mg Lisinopril (Prinivil) 5 mg PO DAILY [facility] Last Admin: 04/17/17 09:01 Dose: 5 mg Methylprednisolone Sodium Succinate (Solu-Medrol -) 40 mg IVPUSH Q6H-IV [facility] Last Admin: 04/17/17 09:01 Dose: 40 mg Olanzapine (Zyprexa -) 10 mg PO BID [facility] Last Admin: 04/17/17 09:01 Dose: 10 mg - Objective Vital Signs: Vital Signs Temperature 98.0 F 04/17/17 07:10 Pulse Rate 68 04/17/17 07:10 Respiratory Rate 18 04/17/17 07:13 Blood Pressure 137/70 04/17/17 07:10 O2 Sat by Pulse Oximetry (%) 94 L 04/17/17 07:13 Constitutional: Yes: Well Nourished, Calm, Obese Eyes: Yes: WNL HENT: Yes: WNL Neck: Yes: WNL Cardiovascular: Yes: Regular Rate and Rhythm, S1, S2 Respiratory: Yes: Wheezes (SCATTERED JACQUELYN WHEEZES AND RHONCHI) Gastrointestinal: Yes: Normal Bowel Sounds, Soft Extremities: Yes: WNL Edema: Yes Labs: CBC, BMP 04/17/17 05:45 04/17/17 05:45 INR, PTT INR 1.04 (0.82-1.09) 04/13/17 15:00 Assessment/Plan Problem List - Problems (1) Acute on chronic respiratory failure with hypoxia and hypercapnia Code(s): J96.21 - ACUTE AND CHRONIC RESPIRATORY FAILURE WITH HYPOXIA; J96.22 - ACUTE AND CHRONIC RESPIRATORY FAILURE WITH HYPERCAPNIA (2) COPD exacerbation Code(s): J44.1 - CHRONIC OBSTRUCTIVE PULMONARY DISEASE W (ACUTE) EXACERBATION (3) Acute on chronic diastolic (congestive) heart failure Code(s): I50.33 - ACUTE ON CHRONIC DIASTOLIC (CONGESTIVE) HEART FAILURE (4) Bipolar disorder Code(s): F31.9 - BIPOLAR DISORDER, UNSPECIFIED Qualifiers: Active/Remission status: remission status unspecified Qualified Code(s): F31.9 - Bipolar disorder, unspecified (5) Diabetes mellitus Code(s): E11.9 - TYPE 2 DIABETES MELLITUS WITHOUT COMPLICATIONS Qualifiers: Diabetes mellitus type: type 2 Diabetes mellitus complication status: without complication Diabetes mellitus long-term insulin use: without long-term use Qualified Code(s): E11.9 - Type 2 diabetes mellitus without complications (6) Hypertension Code(s): I10 - ESSENTIAL (PRIMARY) HYPERTENSION Qualifiers: Hypertension type: essential hypertension Qualified Code(s): I10 - Essential (primary) hypertension (7) Schizophrenia Code(s): F20.9 - SCHIZOPHRENIA, UNSPECIFIED Qualifiers: Schizophrenia type: unspecified Qualified Code(s): F20.9 - Schizophrenia, unspecified Assessment/Plan Acute on Chronic Hypoxic and Hypercapneic Respiratory Failure Acute COPD Exacerbation Acute on Chronic Diastolic Heart Failure HTN DM Schizophrenia Bipolar Disorder - medrol same dose - inhaled bronchodilators standing and PRN - O2 to keep Spo2 88-92% to prevent worsening V/Q mismatching - BiPAP at night and PRN during day - IV lasix - monitor urine output, creatinine - will likely need BiPAP at home or trilogy device for chronic hypercapneic respiratory failure - DVT prophylaxis DR LOZANO
[2017-04-17] MEDS ORDERED: POTASSIUM CHLORIDE TABS 20 MEQ TABLET.ER (FP) PO ONE (17:00)
[2017-04-17] MEDS: INSULIN SLIDING SCALE (NOVOLOG) 1 VIAL SQ SCH ×2 (17:22→21:45)
[2017-04-17] MEDS: ATORVASTATIN CA 40 MG TABLET (FP) PO SCH (21:45)
[2017-04-18] MEDS: methylPREDNISolone NA SUCC 40 MG/1 ML VIAL IVPUSH SCH ×3 (03:25→17:37)
[2017-04-18] MEDS: INSULIN SLIDING SCALE (NOVOLOG) 1 VIAL SQ SCH ×4 (06:02→21:56)
[2017-04-18] MEDS: ALBUTEROL SO4 2.5/IPRATROPIUM 0.5 INH SOL 3 ML VIAL.NEB. NEB SCH ×4 (06:22→23:30)
[2017-04-18] MEDS: hydrALAZINE HCL 50 MG TABLET (FP) PO SCH ×3 (06:33→21:55)
[2017-04-18] MEDS: HEPARIN NA (PORCINE) 5,000 UNITS/ML 1ML VIAL SQ SCH ×3 (06:33→21:55)
[2017-04-18] MEDS: FUROSEMIDE 40 MG/4 ML INJECTABLE VIAL IVPUSH SCH ×2 (06:33→13:22)
[2017-04-18 08:09] LABS: MCH 22.9 pg (25.7-33.7); MCHC 29.8 g/dl (32.0-36.0); MEAN PLT VOLUME 6.8 fl (7.5-11.1); PLATELET COUNT 266 K/MM3 (134-434); RDW 20.1 % (11.6-15.6); WHITE BLOOD COUNT 8.4 K/mm3 (4.0-10.0)
[2017-04-18 08:50] LABS: ANION GAP 6 (8-16); BLOOD UREA NITROGEN 34 mg/dL (7-18); CALCIUM 8.6 mg/dL (8.5-10.1); CHLORIDE 102 mmol/L (98-107); CO2 36 mmol/L (21-32); GLUCOSE,RANDOM 145 mg/dL (74-106); POTASSIUM 3.9 mmol/L (3.5-5.1); SODIUM 144 mmol/L (136-145)
[2017-04-18 08:51] LABS: CREATININE 1.2 mg/dL (0.55-1.02)
[2017-04-18] MEDS: ESCITALOPRAM OXALATE 20 MG TABLET (FP) PO SCH (10:50)
[2017-04-18] MEDS: ASPIRIN COATED 81 MG TABLET.EC PO SCH (10:50)
[2017-04-18] MEDS: CARVEDILOL 12.5 MG TABLET (FP) PO SCH ×2 (10:50→21:55)
[2017-04-18] MEDS: FERROUS SO4 325 MG TABLET (FP) PO SCH (10:50)
[2017-04-18] MEDS: LISINOPRIL 5 MG TABLET (FP) PO SCH (10:50)
[2017-04-18] MEDS: OLANZapine 10 MG TABLET PO SCH ×2 (10:50→21:55)
[2017-04-18] MEDS: amLODIPine BESYLATE 10 MG TABLET (FP) PO SCH (10:50)
--- NOTE | 2017-04-18 11:13 | PN ---
Progress Note, Physician History of Present Illness: PULMONARY ALERT,OOB-CHAIR,COMFORTABLE,LESS DYSPNEIC - Current Medication List Current Medications: Active Medications Albuterol Sulfate (Ventolin 0.083% Nebulizer Soln -) 1 amp NEB Q4H PRN PRN Reason: SHORT OF BREATH/WHEEZING Albuterol/Ipratropium (Duoneb -) 1 amp NEB QIDR [facility] Last Admin: 04/18/17 06:22 Dose: 1 amp Amlodipine Besylate (Norvasc -) 10 mg PO DAILY [facility] Last Admin: 04/18/17 10:50 Dose: 10 mg Aspirin (Ecotrin -) 81 mg PO DAILY [facility] Last Admin: 04/18/17 10:50 Dose: 81 mg Atorvastatin Calcium (Lipitor -) 40 mg PO HS [facility] Last Admin: 04/17/17 21:45 Dose: 40 mg Carvedilol (Coreg -) 12.5 mg PO BID [facility] Last Admin: 04/18/17 10:50 Dose: 12.5 mg Escitalopram Oxalate (Lexapro -) 20 mg PO DAILY [facility] Last Admin: 04/18/17 10:50 Dose: 20 mg Ferrous Sulfate (Feosol -) 325 mg PO DAILY [facility] Last Admin: 04/18/17 10:50 Dose: 325 mg Furosemide (Lasix Injection -) 40 mg IVPUSH BID@0600,1400 [facility] Last Admin: 04/18/17 06:33 Dose: 40 mg Guaifenesin (Robitussin -) 10 ml PO Q6H PRN PRN Reason: COUGH Heparin Sodium (Porcine) (Heparin -) 5,000 unit SQ TID [facility] Last Admin: 04/18/17 06:33 Dose: 5,000 unit Hydralazine HCl (Apresoline -) 50 mg PO TID [facility] Last Admin: 04/18/17 06:33 Dose: 50 mg Insulin Aspart (Novolog Vial Sliding Scale -) 1 vial SQ ACHS [facility] PRN Reason: Protocol Last Admin: 04/18/17 06:02 Dose: Not Given Lisinopril (Prinivil) 5 mg PO DAILY [facility] Last Admin: 04/18/17 10:50 Dose: 5 mg Methylprednisolone Sodium Succinate (Solu-Medrol -) 40 mg IVPUSH Q6H-IV [facility] Last Admin: 04/18/17 10:49 Dose: 40 mg Olanzapine (Zyprexa -) 10 mg PO BID [facility] Last Admin: 04/18/17 10:50 Dose: 10 mg - Objective Vital Signs: Vital Signs Temperature 98.2 F 04/18/17 05:45 Pulse Rate 73 04/18/17 05:45 Respiratory Rate 20 04/18/17 05:45 Blood Pressure 142/77 04/18/17 05:45 O2 Sat by Pulse Oximetry (%) 99 04/17/17 20:25 Constitutional: Yes: Calm, Obese Eyes: Yes: WNL HENT: Yes: WNL Neck: Yes: WNL Cardiovascular: Yes: Regular Rate and Rhythm, S1, S2 Respiratory: Yes: Diminished Gastrointestinal: Yes: Normal Bowel Sounds, Soft Extremities: Yes: WNL Edema: Yes Labs: CBC, BMP 04/18/17 07:45 04/18/17 07:45 INR, PTT INR 1.04 (0.82-1.09) 04/13/17 15:00 Assessment/Plan Problem List - Problems (1) Acute on chronic respiratory failure with hypoxia and hypercapnia Code(s): J96.21 - ACUTE AND CHRONIC RESPIRATORY FAILURE WITH HYPOXIA; J96.22 - ACUTE AND CHRONIC RESPIRATORY FAILURE WITH HYPERCAPNIA (2) COPD exacerbation Code(s): J44.1 - CHRONIC OBSTRUCTIVE PULMONARY DISEASE W (ACUTE) EXACERBATION (3) Acute on chronic diastolic (congestive) heart failure Code(s): I50.33 - ACUTE ON CHRONIC DIASTOLIC (CONGESTIVE) HEART FAILURE (4) Bipolar disorder Code(s): F31.9 - BIPOLAR DISORDER, UNSPECIFIED Qualifiers: Active/Remission status: remission status unspecified Qualified Code(s): F31.9 - Bipolar disorder, unspecified (5) Diabetes mellitus Code(s): E11.9 - TYPE 2 DIABETES MELLITUS WITHOUT COMPLICATIONS Qualifiers: Diabetes mellitus type: type 2 Diabetes mellitus complication status: without complication Diabetes mellitus retirement insulin use: without retirement use Qualified Code(s): E11.9 - Type 2 diabetes mellitus without complications (6) Hypertension Code(s): I10 - ESSENTIAL (PRIMARY) HYPERTENSION Qualifiers: Hypertension type: essential hypertension Qualified Code(s): I10 - Essential (primary) hypertension (7) Schizophrenia Code(s): F20.9 - SCHIZOPHRENIA, UNSPECIFIED Qualifiers: Schizophrenia type: unspecified Qualified Code(s): F20.9 - Schizophrenia, unspecified Assessment/Plan Acute on Chronic Hypoxic and Hypercapneic Respiratory Failure Acute COPD Exacerbation Acute on Chronic Diastolic Heart Failure HTN DM Schizophrenia Bipolar Disorder - medrol taper - inhaled bronchodilators standing and PRN - O2 to keep Spo2 88-92% - BiPAP at night and PRN during day - IV lasix - monitor urine output, creatinine - will likely need BiPAP at home or trilogy device for chronic hypercapneic respiratory failure - DVT prophylaxis - daily wts - chest ct - DR LOZANO
--- NOTE | 2017-04-18 14:03 | PN ---
Teaching Attending Note Name of Resident: Raghu Reed ATTENDING PHYSICIAN STATEMENT I saw and evaluated the patient. I reviewed the resident's note and discussed the case with the resident. I agree with the resident's findings and plan as documented. SUBJECTIVE:improved. states she is no longer dyspnic at rest. cont to have cough , not productive. denies CP, SOB, fever, chills, N/V/C/D. was on NC for the remainder of the day yesterday on cpap overnight for DIRK OBJECTIVE: Last Vital Signs Temp Pulse Resp BP Pulse Ox 98.4 F 90 26 H 139/75 93 L 04/18/17 10:00 04/18/17 10:00 04/18/17 10:00 04/18/17 10:00 04/18/17 10:00 Intake & Output 04/15/17 04/16/17 04/17/17 04/18/17 23:59 23:59 23:59 23:59 Intake Total 584 750 366 120 Output Total 3200 6300 4100 900 Balance -2616 -5550 -3734 -780 Weight 249 lb 12 oz 270 lb 257 lb General NAD CV S1 S2 Lungs decreased breath sounds bases, some mild expiratory wheezing. poor inspiratory effort Abdomen soft NT/ND Extremities 1+ pitting edema B/L LE ASSESSMENT AND PLAN: 61 yo F with PMHx of morbid obesity, Diastolic HF, COPD, suspected DIRK, NIDDM, HTN, HLD, schizophrenia/bipolar disorder, frequent recent admissions with hypoxic/hypercapnic respiratory failure requiring Bipap/Intubation, last discharged on 04/03/2017 on home oxygen, oral steroid taper and lasix reports was doing well since her discharge (states is on Prednisone 30 mg currently) admitted with recurrent Acute hypoxic/hypercapneic respiratory failure, Diastolic HF exacerbation and Mild COPD 1. Acute hyopxic/hypercapnic respiratory failure- due to diastolic CHF exacerbation vs COPD. clinically improved. saturating 95%o n RA> will decrease medrol to Q8H dosing. on lasix 40mg BID IV. consider switching to po tomorrow. cont supplemental oxygen as tolerated. cpap HS. will need Triology device with frequent hospitalization. pulm on board 2. HTN-controlled. cont current management 3. Iron def anemia- Hgb stable. cont iron supplements. no indication for transfusion 4. Hyperglycemia- a1c 6.2, likely steroid induced. start on BGM and iss while hospitalized and on steroids 5. SANTO- improved. cont current management 6. Continuous nicotine depdence- refused nicotine patch. states she has desire to "eventually" quit. states she is cutting back. counseled on risks of continued smoking and worsening pulmonary status 7. Schizophrenia/bipolar disorder- zyprexa 8. Morbid obesity- counseled on weight loss and dietary modifications. bariatric referral as outpatient. 9. suspect DIRK, ?OHS 10. DVT ppx- hep sq
[2017-04-18] MEDS ORDERED: PT OWN MED DRAWER 7, Y5N ONE (18:54)
--- NOTE | 2017-04-18 19:02 | PN ---
Physical Exam: Note: Pt seen earlier this morning SUBJECTIVE: No acute events overnight. Over the weekend pt was placed in ICU due to worsening respiratory status, however was returned to the floor without need of intubation. Pt has been transitioning to nasal cannula without problems. Currently pt reports soreness at the melendez insertion however denies any burning. Pt reports her breathing has improved and she has noticed a decreased in her leg edema even though it is still present. OBJECTIVE: Vital Signs Period Temp Pulse Resp BP Sys/Osei Pulse Ox Last 24 Hr 98.2 F-98.8 F 73-90 15- 131-142/69-80 93-99 GENERAL: NAD, awake, alert, and fully oriented HEENT: No JVD, EOMI, PATRICE, moist mucosa with normal structures of mouth LUNGS: Rales heard bibasilarly with some end-expiratory wheezes noted. No accessory muscle use; 3LNC on patient intact HEART: RRR, S1, S2 without murmur ABDOMEN: Soft, nontender, nondistended, normoactive bowel sounds, no guarding, no rebound, no hepatomegaly, no masses. EXTREMITIES: 2+ DP pulses, warm, 1+ pitting edema to the mid-leg NEUROLOGICAL: Nonfocal exam. Normal speech, gait not observed. SKIN: Warm, dry, normal turgor, no rashes or lesions noted Laboratory Results - last 24 hr 04/17/17 04/18/17 04/18/17 21:01 05:59 07:45 WBC 8.4 D RBC 3.50 L Hgb 8.0 L Hct 27.0 L MCV 77.0 L MCH 22.9 L MCHC 29.8 L RDW 20.1 H Plt Count 266 MPV 6.8 L Sodium Potassium Chloride Carbon Dioxide Anion Gap BUN Creatinine POC Glucometer 382 147 Random Glucose Calcium 04/18/17 04/18/17 04/18/17 07:45 12:09 17:26 WBC RBC Hgb Hct MCV MCH MCHC RDW Plt Count MPV Sodium 144 Potassium 3.9 Chloride 102 Carbon Dioxide 36 H Anion Gap 6 L BUN 34 H Creatinine 1.2 H POC Glucometer 259 327 Random Glucose 145 H D Calcium 8.6 Active Medications Generic Name Dose Route Start Last Admin Trade Name Freq PRN Reason Stop Dose Admin Albuterol Sulfate 1 amp 04/17/17 04:46 Ventolin 0.083% Nebulizer Soln - NEB Q4H PRN SHORT OF BREATH/WHEEZING Albuterol/Ipratropium 1 amp 04/17/17 06:00 04/18/17 12:00 Duoneb - NEB 1 amp QIDR JOSLYN Administration Amlodipine Besylate 10 mg 04/17/17 10:00 04/18/17 10:50 Norvasc - PO 10 mg DAILY JOSLYN Administration Aspirin 81 mg 04/17/17 10:00 04/18/17 10:50 Ecotrin - PO 81 mg DAILY JOSLYN Administration Atorvastatin Calcium 40 mg 04/17/17 22:00 04/17/17 21:45 Lipitor - PO 40 mg HS JOSLYN Administration Carvedilol 12.5 mg 04/17/17 10:00 04/18/17 10:50 Coreg - PO 12.5 mg BID JOSLYN Administration Escitalopram Oxalate 20 mg 04/17/17 10:00 04/18/17 10:50 Lexapro - PO 20 mg DAILY JOSLYN Administration Ferrous Sulfate 325 mg 04/17/17 10:00 04/18/17 10:50 Feosol - PO 325 mg DAILY JOSLYN Administration Furosemide 40 mg 04/17/17 06:00 04/18/17 13:22 Lasix Injection - IVPUSH 40 mg BID@0600,1400 JOSLYN Administration Guaifenesin 10 ml 04/17/17 04:46 Robitussin - PO Q6H PRN COUGH Heparin Sodium (Porcine) 5,000 unit 04/17/17 06:00 04/18/17 13:22 Heparin - SQ 5,000 unit TID JOSLYN Administration Hydralazine HCl 50 mg 04/17/17 06:00 04/18/17 13:21 Apresoline - PO 50 mg TID JOSLYN Administration Insulin Aspart 1 vial 04/17/17 16:30 04/18/17 17:37 Novolog Vial Sliding Scale - SQ 8 units ACHS JOSLYN Administration Protocol Lisinopril 5 mg 04/17/17 10:00 04/18/17 10:50 Prinivil PO 5 mg DAILY JOSLYN Administration Methylprednisolone Sodium Succinate 40 mg 04/18/17 18:00 04/18/17 17:37 Solu-Medrol - IVPUSH 40 mg Q8H-IV JOSLYN Administration Olanzapine 10 mg 04/17/17 10:00 04/18/17 10:50 Zyprexa - PO 10 mg BID JOSLYN Administration ASSESSMENT/PLAN: 61yo F with h/o HTN, HLD, pre-diabetes, CAD, dCHF, hep c, CKD stage III-IV, COPD , schizophrenia, active smoker with presentation of SOB after a 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 1) Acute hypoxic hypercapnic respiratory distress --2/2 COPD exacerbation vs. dCHF exacerbation --Components of each noted on exam; improving --Clinically improving; now on 3LNC --Maintain SpO2 88-92% to prevent V/Q mismatch worsening --Pulmonology on board --Decreased Solumedrol to 40mg IVP q8h --Continue duonebs scheduled; albuterol q4h PRN --Will need trilogy device upon discharge; continue CPAP HS while hospitalized 2) Diastolic CHF --Continued b/l pitting edema; however improved --Echo 03/27/17: L systolic normal size and function --Lasix 40mg IV BID to continue due to edema and rales on exam --Anticipated stepping down lasix coverage as pt continues to improve --Daily weights showing 13lb weight loss --Suspect calibration error between scales --Continues to be net negative with I&O's --DC'd melendez; follow pt voiding freely --If retention bladder scan and possible straight cath if need be before re-initiation 3) HTN --Currently 142/80 --Continue home medication Norvasc 10mg qdaily Coreg 12.5 mg PO BID Hydralazine 50mg TID Lisinopril 5mg qdaily 4) Schizoprenia history --Not suicidal currently --Lexapro 20mg qDaily --Zyprexa 10mg PO BID 5) Iron deficiency anemia --Cont Iron supplementation --Monitor signs of constipation 6) SANTO Cr 1.2 (baseline 0.9) Most likely cardio-renal syndrome 7) Pre-diabetes --A1C this past month 6.2 (prior 5.6) --Diet counselling --Hyperglycemia iatrogenically induced due to steroids for her respiratory status FEN: Fluids: Avoid due to overload Electrolytes abnormalities: Nutrition: Sodium and diet controlled PPX: DVT - Heparin SQ TID Dispo: Continue Tele monitoring; d/c planning on improvement; begin to taper medications to oral Code Status: Full code Case to be discussed with Dr. Richard Reed, DO - Internal Medicine PGY-1 Visit type - Emergency Visit Emergency Visit: No - New Patient This patient is new to me today: No - Critical Care Critical Care patient: No
[2017-04-18] MEDS: ATORVASTATIN CA 40 MG TABLET (FP) PO SCH (21:55)
[2017-04-19] MEDS: methylPREDNISolone NA SUCC 40 MG/1 ML VIAL IVPUSH SCH ×3 (02:45→17:59)
[2017-04-19] MEDS: HEPARIN NA (PORCINE) 5,000 UNITS/ML 1ML VIAL SQ SCH ×3 (06:39→22:42)
[2017-04-19] MEDS: FUROSEMIDE 40 MG/4 ML INJECTABLE VIAL IVPUSH SCH (06:39)
[2017-04-19] MEDS: hydrALAZINE HCL 50 MG TABLET (FP) PO SCH ×3 (06:39→22:41)
[2017-04-19] MEDS: INSULIN SLIDING SCALE (NOVOLOG) 1 VIAL SQ SCH ×4 (06:40→22:46)
[2017-04-19] MEDS: ALBUTEROL SO4 2.5/IPRATROPIUM 0.5 INH SOL 3 ML VIAL.NEB. NEB SCH (06:58)
--- NOTE | 2017-04-19 07:02 | PN ---
Physical Exam: SUBJECTIVE: No acute events noted overnight. No events on monitor. Pt reports still being hungry and wants to go home. Denies any chills/fevers, CP/ discomfort. Still reports some increase breathing work, however pt states she feels slightly better compared to before OBJECTIVE: Vital Signs Period Temp Pulse Resp BP Sys/Osei Pulse Ox Last 24 Hr 98.0 F-98.8 F 77-90 15-26 134-148/69-81 92-96 GENERAL: NAD, awake, alert, and fully oriented sitting at bedside HEENT: NC/AT, moist mucosa, No JVD LUNGS: Poor air entry at bases of lungs, rales diffusely with some end- expiratory wheezing. No accessory muscle use. Currently on 3LNC HEART: RRR, S1, S2 with splitting of S2 noted and 2/6 systolic murmur at the apex. ABDOMEN: Soft, nontender, nondistended, normoactive bowel sounds, no guarding, no hepatomegaly EXTREMITIES: 2+ DP pulses, 2+ pitting edema, legs currently hanging at bedside however. NEUROLOGICAL: Nonfocal. Normal speech, gait not observed. SKIN: Warm, dry, no rashes or lesions noted Laboratory Results - last 24 hr 04/18/17 04/18/17 04/18/17 07:45 07:45 12:09 WBC 8.4 D RBC 3.50 L Hgb 8.0 L Hct 27.0 L MCV 77.0 L MCH 22.9 L MCHC 29.8 L RDW 20.1 H Plt Count 266 MPV 6.8 L Sodium 144 Potassium 3.9 Chloride 102 Carbon Dioxide 36 H Anion Gap 6 L BUN 34 H Creatinine 1.2 H POC Glucometer 259 Random Glucose 145 H D Calcium 8.6 04/18/17 04/18/17 17:26 21:54 WBC RBC Hgb Hct MCV MCH MCHC RDW Plt Count MPV Sodium Potassium Chloride Carbon Dioxide Anion Gap BUN Creatinine POC Glucometer 327 373 Random Glucose Calcium Active Medications Generic Name Dose Route Start Last Admin Trade Name Freq PRN Reason Stop Dose Admin Albuterol Sulfate 1 amp 04/17/17 04:46 Ventolin 0.083% Nebulizer Soln - NEB Q4H PRN SHORT OF BREATH/WHEEZING Albuterol/Ipratropium 1 amp 04/17/17 06:00 04/18/17 23:30 Duoneb - NEB 1 amp QIDR JOSLYN Administration Amlodipine Besylate 10 mg 04/17/17 10:00 04/18/17 10:50 Norvasc - PO 10 mg DAILY JOSLYN Administration Aspirin 81 mg 04/17/17 10:00 04/18/17 10:50 Ecotrin - PO 81 mg DAILY JOSLYN Administration Atorvastatin Calcium 40 mg 04/17/17 22:00 04/18/17 21:55 Lipitor - PO 40 mg HS JOSLYN Administration Carvedilol 12.5 mg 04/17/17 10:00 04/18/17 21:55 Coreg - PO 12.5 mg BID JOSLYN Administration Escitalopram Oxalate 20 mg 04/17/17 10:00 04/18/17 10:50 Lexapro - PO 20 mg DAILY JOSLYN Administration Ferrous Sulfate 325 mg 04/17/17 10:00 04/18/17 10:50 Feosol - PO 325 mg DAILY JOSLYN Administration Furosemide 40 mg 04/17/17 06:00 04/19/17 06:39 Lasix Injection - IVPUSH 40 mg BID@0600,1400 JOSLYN Administration Guaifenesin 10 ml 04/17/17 04:46 Robitussin - PO Q6H PRN COUGH Heparin Sodium (Porcine) 5,000 unit 04/17/17 06:00 04/19/17 06:39 Heparin - SQ 5,000 unit TID JOSLYN Administration Hydralazine HCl 50 mg 04/17/17 06:00 04/19/17 06:39 Apresoline - PO 50 mg TID JOSLYN Administration Insulin Aspart 1 vial 04/17/17 16:30 04/19/17 06:40 Novolog Vial Sliding Scale - SQ 6 units ACHS JOSLYN Administration Protocol Lisinopril 5 mg 04/17/17 10:00 04/18/17 10:50 Prinivil PO 5 mg DAILY JOSLYN Administration Methylprednisolone Sodium Succinate 40 mg 04/18/17 18:00 04/19/17 02:45 Solu-Medrol - IVPUSH 40 mg Q8H-IV JOSLYN Administration Olanzapine 10 mg 04/17/17 10:00 04/18/17 21:55 Zyprexa - PO 10 mg BID JOSLYN Administration ASSESSMENT/PLAN: 61yo F with h/o HTN, HLD, pre-diabetes, CAD, dCHF, hep c, CKD stage III-IV, COPD , schizophrenia, active smoker with 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 1) Acute hypoxic hypercapnic respiratory distress --2/2 COPD exacerbation vs. dCHF exacerbation --Components of each noted on exam; improving --Slightly more somnolent today --Pt started on BiPap --Repeat ABG showing CO2 retention at 71 ; now on 3LNC --Maintain SpO2 88-92% to prevent V/Q mismatch worsening --Pulmonology on board --Continue Solumedrol 40mg IVP q8h --Continue duonebs scheduled; albuterol q4h PRN --Continue CPAP HS while hospitalized --Pt cannot receive trilogy device or oxygen due to continued smoking --Possibility for pulmonary rehab upon discharge --Pre- and post-ambulatory needed prior to discharge 2) Pneumonia --HCAP vs. aspiration PNA --Confirmed by Chest CT: compressive atelectasis in the LLL, however air bronchograms noted in the RLL --ID consulted --Per recommendations start Cefepime and Flagyl --HIV testing with patient consent --Legionella urinary antigen 3) Diastolic CHF --Continued b/l pitting edema; however improved --Echo 03/27/17: L systolic normal size and function --Will transition to Lasix 40mg PO BID --Despite edema pt showing signs of volume contraction on labs; most likely will see mobilization of some more fluid soon --Daily weights --Pt voiding without retention since melendez discontinuation 4) HTN --Currently 142/80 --Continue home medication Norvasc 10mg qdaily Coreg 12.5 mg PO BID Hydralazine 50mg TID Lisinopril 5mg qdaily 5) Schizoprenia history --Not suicidal currently --Lexapro 20mg qDaily --Zyprexa 10mg PO BID 6) Iron deficiency anemia --Cont Iron supplementation --Monitor signs of constipation 7) SANTO Cr 1.2 (baseline 0.9) Most likely cardio-renal syndrome 8) Pre-diabetes --A1C this past month 6.2 (prior 5.6) --Diet counselling --Hyperglycemia iatrogenically induced due to steroids for her respiratory status FEN: Fluids: Avoid due to overload Electrolytes abnormalities: None currently Nutrition: Diabetic and sodium controlled PPX: DVT - Heparin SQ TID Dispo: Continue Tele monitoring; d/c planning on improvement; begin to taper medications to oral Code Status: Full code Case to be discussed with Dr. Richard Reed, DO - Internal Medicine PGY-1 Visit type - Emergency Visit Emergency Visit: No - New Patient This patient is new to me today: No - Critical Care Critical Care patient: No
[2017-04-19 07:50] LABS: HEMATOCRIT 27.9 % (32.4-45.2); HEMOGLOBIN 8.3 GM/dL (10.7-15.3); MCHC 29.6 g/dl (32.0-36.0); MEAN CELL VOLUME 77.6 fl (80-96); MEAN PLT VOLUME 7.1 fl (7.5-11.1); PLATELET COUNT 249 K/MM3 (134-434); RDW 20.1 % (11.6-15.6); WHITE BLOOD COUNT 9.6 K/mm3 (4.0-10.0)
[2017-04-19 08:02] LABS: ANION GAP 5 (8-16); BLOOD UREA NITROGEN 41 mg/dL (7-18); CALCIUM 8.6 mg/dL (8.5-10.1); CHLORIDE 98 mmol/L (98-107); CO2 37 mmol/L (21-32); CREATININE 1.4 mg/dL (0.55-1.02); GLUCOSE,RANDOM 262 mg/dL (74-106); POTASSIUM 3.8 mmol/L (3.5-5.1); SGOT/AST 8 U/L (15-37); SGPT/ALT 30 U/L (12-78); SODIUM 140 mmol/L (136-145)
[2017-04-19 08:05] LABS: ALK PHOS 134 U/L (45-117); BILIRUBIN,TOTAL 0.5 mg/dL (0.2-1.0); TOT PROT 6.3 g/dl (6.4-8.2)
[2017-04-19] MEDS ORDERED: PT OWN MED DRAWER 7, Y5N ONE ×2 (08:32→09:03)
[2017-04-19] MEDS: ESCITALOPRAM OXALATE 20 MG TABLET (FP) PO SCH (09:01)
[2017-04-19] MEDS: LISINOPRIL 5 MG TABLET (FP) PO SCH (09:02)
[2017-04-19] MEDS: CARVEDILOL 12.5 MG TABLET (FP) PO SCH ×2 (09:02→22:42)
[2017-04-19] MEDS: ASPIRIN COATED 81 MG TABLET.EC PO SCH (09:02)
[2017-04-19] MEDS: amLODIPine BESYLATE 10 MG TABLET (FP) PO SCH (09:02)
[2017-04-19] MEDS: FERROUS SO4 325 MG TABLET (FP) PO SCH (09:02)
[2017-04-19] MEDS: OLANZapine 10 MG TABLET PO SCH ×2 (09:04→22:42)
--- NOTE | 2017-04-19 11:33 | PN ---
Progress Note, Physician History of Present Illness: PULMONARY NOTED TO BE VERY SLEEPY EARLIER THIS MORNING ,PLACED ON BIPAP,CURRENTLY MORE ALERT,NAD - Current Medication List Current Medications: Active Medications Albuterol Sulfate (Ventolin 0.083% Nebulizer Soln -) 1 amp NEB Q4H PRN PRN Reason: SHORT OF BREATH/WHEEZING Albuterol/Ipratropium (Duoneb -) 1 amp NEB QIDR [facility] Last Admin: 04/19/17 06:58 Dose: 1 amp Amlodipine Besylate (Norvasc -) 10 mg PO DAILY [facility] Last Admin: 04/19/17 09:02 Dose: 10 mg Aspirin (Ecotrin -) 81 mg PO DAILY [facility] Last Admin: 04/19/17 09:02 Dose: 81 mg Atorvastatin Calcium (Lipitor -) 40 mg PO HS [facility] Last Admin: 04/18/17 21:55 Dose: 40 mg Carvedilol (Coreg -) 12.5 mg PO BID [facility] Last Admin: 04/19/17 09:02 Dose: 12.5 mg Escitalopram Oxalate (Lexapro -) 20 mg PO DAILY [facility] Last Admin: 04/19/17 09:01 Dose: 20 mg Ferrous Sulfate (Feosol -) 325 mg PO DAILY [facility] Last Admin: 04/19/17 09:02 Dose: 325 mg Furosemide (Lasix Injection -) 40 mg IVPUSH BID@0600,1400 [facility] Last Admin: 04/19/17 06:39 Dose: 40 mg Guaifenesin (Robitussin -) 10 ml PO Q6H PRN PRN Reason: COUGH Heparin Sodium (Porcine) (Heparin -) 5,000 unit SQ TID [facility] Last Admin: 04/19/17 06:39 Dose: 5,000 unit Hydralazine HCl (Apresoline -) 50 mg PO TID [facility] Last Admin: 04/19/17 06:39 Dose: 50 mg Insulin Aspart (Novolog Vial Sliding Scale -) 1 vial SQ ACHS [facility] PRN Reason: Protocol Last Admin: 04/19/17 06:40 Dose: 6 units Lisinopril (Prinivil) 5 mg PO DAILY [facility] Last Admin: 04/19/17 09:02 Dose: 5 mg Methylprednisolone Sodium Succinate (Solu-Medrol -) 40 mg IVPUSH Q8H-IV [facility] Last Admin: 04/19/17 09:01 Dose: 40 mg Olanzapine (Zyprexa -) 10 mg PO BID JOSLYN Last Admin: 04/19/17 09:04 Dose: 10 mg - Objective Vital Signs: Vital Signs Temperature 98.4 F 04/19/17 10:00 Pulse Rate 88 04/19/17 10:00 Respiratory Rate 22 04/19/17 10:00 Blood Pressure 132/78 04/19/17 10:00 O2 Sat by Pulse Oximetry (%) 100 04/19/17 10:00 Constitutional: Yes: Calm, Obese Eyes: Yes: WNL HENT: Yes: WNL Neck: Yes: WNL Cardiovascular: Yes: Regular Rate and Rhythm, S1, S2 Respiratory: Yes: Diminished Gastrointestinal: Yes: Normal Bowel Sounds, Soft Extremities: Yes: WNL Edema: Yes Labs: CBC, BMP 04/19/17 05:05 04/19/17 05:05 INR, PTT INR 1.04 (0.82-1.09) 04/13/17 15:00 - ....Imaging Cat Scan: Report Reviewed, Image Reviewed (PATCHY CONSOLIDATION RUL,RLL) Assessment/Plan Problem List - Problems (1) Acute on chronic respiratory failure with hypoxia and hypercapnia Code(s): J96.21 - ACUTE AND CHRONIC RESPIRATORY FAILURE WITH HYPOXIA; J96.22 - ACUTE AND CHRONIC RESPIRATORY FAILURE WITH HYPERCAPNIA (2) COPD exacerbation Code(s): J44.1 - CHRONIC OBSTRUCTIVE PULMONARY DISEASE W (ACUTE) EXACERBATION (3) Acute on chronic diastolic (congestive) heart failure Code(s): I50.33 - ACUTE ON CHRONIC DIASTOLIC (CONGESTIVE) HEART FAILURE (4) Bipolar disorder Code(s): F31.9 - BIPOLAR DISORDER, UNSPECIFIED Qualifiers: Active/Remission status: remission status unspecified Qualified Code(s): F31.9 - Bipolar disorder, unspecified (5) Diabetes mellitus Code(s): E11.9 - TYPE 2 DIABETES MELLITUS WITHOUT COMPLICATIONS Qualifiers: Diabetes mellitus type: type 2 Diabetes mellitus complication status: without complication 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: without detention use Qualified Code(s): E11.9 - Type 2 diabetes mellitus without complications (6) Hypertension Code(s): I10 - ESSENTIAL (PRIMARY) HYPERTENSION Qualifiers: Hypertension type: essential hypertension Qualified Code(s): I10 - Essential (primary) hypertension (7) Schizophrenia Code(s): F20.9 - SCHIZOPHRENIA, UNSPECIFIED Qualifiers: Schizophrenia type: unspecified Qualified Code(s): F20.9 - Schizophrenia, unspecified Assessment/Plan Acute on Chronic Hypoxic and Hypercapneic Respiratory Failure Acute COPD Exacerbation Acute on Chronic Diastolic Heart Failure Pneumonia HTN DM Schizophrenia Bipolar Disorder - medrol taper - inhaled bronchodilators standing and PRN - O2 to keep Spo2 88-92% - BiPAP at night and PRN during day - IV lasix - monitor urine output, creatinine - will likely need BiPAP at home or trilogy device for chronic hypercapneic respiratory failure - DVT prophylaxis - daily wt DR LOZANO
[2017-04-19] MEDS ORDERED: PIPERACIL/TAZOB 3.375 GM 3.375 GM/50 ML PREMIX IVPB ONE (12:11)
[2017-04-19 12:27] LABS: ARTERIAL BLD GAS O2 SATURATION 97.1 % (90-98.9); ARTERIAL BLOOD GAS BASE EXCESS 9.1 meq/l (-2-2); ARTERIAL BLOOD GAS PO2 92.6 mmHg (80-100); ARTERIAL BLOOD GAS pH 7.33 (7.35-7.45)
[2017-04-19 12:31] LABS: ARTERIAL BLOOD GAS PCO2 71.3 mmHg (35-45)
[2017-04-19 12:32] LABS: ALLENS TEST POSITIVE
--- NOTE | 2017-04-19 13:02 | PN ---
Teaching Attending Note Name of Resident: Raghu Reed ATTENDING PHYSICIAN STATEMENT I saw and evaluated the patient. I reviewed the resident's note and discussed the case with the resident. I agree with the resident's findings and plan as documented. SUBJECTIVE:states she feels better and wants to eat. denies CP, SOB, fever, chills OBJECTIVE: Last Vital Signs Temp Pulse Resp BP Pulse Ox 98.4 F 88 22 132/78 100 04/19/17 10:00 04/19/17 10:00 04/19/17 10:00 04/19/17 10:00 04/19/17 10:00 Intake & Output 04/16/17 04/17/17 04/18/17 04/19/17 23:59 23:59 23:59 23:59 Intake Total 750 366 155 395 Output Total 6300 4105 6710 Balance -2330 -5674 -4342 395 Weight 270 lb 257 lb 242 lb 8 oz General lethargic, easily arrousable to verbal stimuli CV S1 S2 Lungs decreased breath sounds bases, some mild expiratory wheezing. poor inspiratory effort Abdomen soft NT/ND Extremities 1+ pitting edema B/L LE ASSESSMENT AND PLAN: 61 yo F with PMHx of morbid obesity, Diastolic HF, COPD, suspected DIKR, NIDDM, HTN, HLD, schizophrenia/bipolar disorder, frequent recent admissions with hypoxic/hypercapnic respiratory failure requiring Bipap/Intubation, last discharged on 04/03/2017 on home oxygen, oral steroid taper and lasix reports was doing well since her discharge (states is on Prednisone 30 mg currently) admitted with recurrent Acute hypoxic/hypercapneic respiratory failure, Diastolic HF exacerbation and Mild COPD 1. Acute hyopxic/hypercapnic respiratory failure- due to diastolic CHF exacerbation vs COPD. more somnolent than yesterday on bipap however contraindicated with poor mental status. check ABG. CT chest done showing multilobar PNA on the R. start zosyn. due to PCN allergy. consult ID. will keep steroids at current dosing. switch lasix to po. cpap HS. will need Triology device with frequent hospitalization. pulm on board 2. HTN-controlled. cont current management 3. Iron def anemia- Hgb stable. cont iron supplements. no indication for transfusion 4. Hyperglycemia- a1c 6.2, likely steroid induced. start on BGM and iss while hospitalized and on steroids 5. SANTO- improved. cont current management 6. Continuous nicotine dependence- refused nicotine patch. states she has desire to "eventually" quit. states she is cutting back. counseled on risks of continued smoking and worsening pulmonary status 7. Schizophrenia/bipolar disorder- zyprexa 8. Morbid obesity- counseled on weight loss and dietary modifications. bariatric referral as outpatient. 9. suspect DIRK, ?OHS 10. DVT ppx- hep sq 11. poor prognosis. low threshold for intubation.
[2017-04-19] MEDS: FUROSEMIDE 40 MG TABLET (FP) PO SCH (14:43)
[2017-04-19] MEDS ORDERED: PIPERACILLIN/TAZOB 3.375 GM 3.375 GM in SODIUM CHLORIDE 100 ML IVPB ONE (15:00)
--- NOTE | 2017-04-19 15:02 | PN ---
Progress Note (short form) - Note Progress Note: ID consult dictated imp/reccd 61 year old female with 3rd admission to [facility] this month for SOB required intubation on prior admit, this time treated with bipap and lasix and steroids had chest ct done yesterday- for abnormal cxray found to have right sided pulmonary infiltrates and mediastinal adenopathy +smoker currently no cough or sputum production pen allergy- rash- has tolerated carbapenems in the past abnormal chest ct- cannot r/o pneumonia ?malignancy - active smoker ?pulmonary HTN- ?etiology of bilateral lower extremity edema microcytic anemia start cefepime/flagyl hiv test (patient consents) legionella urinary antigen
[2017-04-19] MEDS ORDERED: CEFEPIME HCL 1 GM VIAL (RESTRICTED TO ID) IVPB SCH (15:15)
[2017-04-19] MEDS: CEFEPIME 1 GM in DEXTROSE 5%-WATER - 100 ML IVPB SCH (17:42)
[2017-04-19] MEDS: METRONIDAZOLE 500 MG PREMIXED 500 MG/100 ML MG IVPB SCH (17:58)
--- NOTE | 2017-04-19 19:41 | CONS ---
DATE OF CONSULTATION: 04/19/2017 INFECTIOUS DISEASE CONSULTATION REQUESTING PHYSICIAN: Hospitalist services. HISTORY OF PRESENT ILLNESS: This is a 62-year-old woman with her 3rd admission this month to [facility]. she was here from March 27, 2017 to March 29, 2017 again March 31, 2017 to April 04, 2017 all for acute hypoxic hypercapnic respiratory failure. One of these admissions she was intubated for her COPD. She now presents again on the with complaints of shortness of breath. She started having shortness of breath again with cough. She went to a [employer] party and then started having shortness of breath and came to the ER. There were no fever or chills. She was started on BiPAP, Lasix and steroids with some improvement. In the ER she was hypoxic, hypertensive and she was noted to have some congestion on chest x-ray. She has been treated since admission with BiPAP, Lasix and steroids with some improvement though this morning she was more hypercapnic and required BiPAP. She was seen by Dr. Joaquin yesterday who noted her x-ray appeared abnormal and he ordered a CAT scan. We are asked to see because the CAT scan showed patchy infiltrate. She denies any cough. She has a great appetite. She is eating her dinner and she is feeling much better. She has had no fevers. PAST MEDICAL HISTORY: Is notable for history of hypertension, hyperlipidemia, coronary artery disease, hepatitis C, stage 3 CKD, COPD intubated in the past, bipolar disorder, schizophrenia. PAST SURGICAL HISTORY: Notable for hysterectomy. SOCIAL HISTORY: She has cut down from smoking 1 pack a day to 8 cigarettes a day. There is no history of alcohol or substance abuse. She lives a home and has a home health aid. FAMILY HISTORY: Noncontributory. ALLERGIES: IBUPROFEN, METFORMIN, PENICILLIN which gives her a rash. She has had carbapenems in the past successfully. MEDICATIONS: At the time of admission included Lexapro, Zyprexa, Ecotrin, Norvasc, Coreg, Apresoline, Ventolin inhaler, Feosol, Lasix, Prinivil, atorvastatin and prednisone. It does appear that she has made any appropriate followup appointments from any of her admissions. To me she denies even having oxygen at home though looking through the computer it appears she discharged on home oxygen. REVIEW OF SYSTEMS: Currently negative. She does not even report the discomfort she had this morning when she was noted to have lethargy. The admission from March 27 to March 29 was when she required intubation. PHYSICAL EXAMINATION: General: She is awake and alert, resting comfortably. She refuses to get in bed for a thorough exam and insists on sitting in her chair. Vital Signs: Temperature 97.2, pulse is 75, blood pressure 123/66, respiratory rate 20, saturation is 96% on 4 L. HEENT: Normocephalic. Eyes are anicteric. She has no thrush. Neck: She has no cervical adenopathy. Lungs: Diminished breath sounds at the bases. Heart: Regular rate and rhythm. Abdomen: Protuberant. I cannot examine her sitting in the chair. It is nontender. Extremities: Notable for 1+ edema bilaterally extending up to her knees. LABORATORY DATA: Notable for a white count of 9.6, hemoglobin 8.3, platelets 249. BUN 41, creatinine 1.4 with an alkaline phosphatase of 134. Blood cultures and urine cultures sent on admission are negative. CAT scan findings done yesterday reveals patchy consolidation within the right lung suspicious for acute pneumonia both upper and lower lobe. As well, she has mild mediastinal adenopathy. IMPRESSION AND RECOMMENDATIONS: In summary this is a 61-year-old woman with abnormal chest CT, cannot rule out pneumonia, cannot rule out malignancy in an active smoker, possible pulmonary hypertension, question the etiology of her chronic bilateral lower extremity edema, as well she has unexplained microcystic anemia which she also has a penicillin allergy but has tolerated carbapenems in the past. I would start Cefepime and Flagyl, HIV test which she consents to, as she is hepatitis C positive and would obtain a legionella urinary antigen. The patient reports she has never been treated in the past for her hepatitis C. Donald [id number]
[2017-04-19] MEDS: ATORVASTATIN CA 40 MG TABLET (FP) PO SCH (22:42)
[2017-04-20] MEDS: ALBUTEROL SO4 2.5/IPRATROPIUM 0.5 INH SOL 3 ML VIAL.NEB. NEB SCH ×5 (00:02→23:30)
[2017-04-20] MEDS: methylPREDNISolone NA SUCC 40 MG/1 ML VIAL IVPUSH SCH ×2 (02:39→09:23)
[2017-04-20] MEDS: METRONIDAZOLE 500 MG PREMIXED 500 MG/100 ML MG IVPB SCH ×2 (02:39→09:28)
[2017-04-20] MEDS: CEFEPIME 1 GM in DEXTROSE 5%-WATER - 100 ML IVPB SCH (06:08)
[2017-04-20] MEDS: FUROSEMIDE 40 MG TABLET (FP) PO SCH ×2 (06:10→13:11)
[2017-04-20] MEDS: hydrALAZINE HCL 50 MG TABLET (FP) PO SCH ×3 (06:10→21:36)
[2017-04-20] MEDS: HEPARIN NA (PORCINE) 5,000 UNITS/ML 1ML VIAL SQ SCH ×3 (06:10→21:36)
[2017-04-20] MEDS: INSULIN SLIDING SCALE (NOVOLOG) 1 VIAL SQ SCH ×4 (06:16→21:37)
[2017-04-20 07:53] LABS: ARTERIAL BLD GAS O2 SATURATION 95.4 % (90-98.9); ARTERIAL BLOOD GAS BASE EXCESS 10.9 meq/l (-2-2); ARTERIAL BLOOD GAS PCO2 74.7 mmHg (35-45); ARTERIAL BLOOD GAS PO2 77.3 mmHg (80-100); ARTERIAL BLOOD GAS pH 7.33 (7.35-7.45)
[2017-04-20 07:58] LABS: ALLENS TEST POSITIVE
--- NOTE | 2017-04-20 08:26 | PN ---
Physical Exam: SUBJECTIVE: Pt "feels fine" and would like to eat some crackers in addition to her breakfast she has. Denies fever/chills, CP/discomfort, abdominal pain. OBJECTIVE: Vital Signs Period Temp Pulse Resp BP Sys/Osei Pulse Ox Last 24 Hr 97.2 F-98.5 F 67-88 18-22 123-144/66-82 95-100 GENERAL: Lethargic, however arousable to verbal stimuli and remains alert once stimulated. HEENT: NC/AT, moist mucosa, No JVD LUNGS: Poor air entry at bases of lungs, mild expiratory wheezing. poor inspiratory effort. No accessory muscle use. Currently on 3LNC HEART: RRR, S1, S2 with splitting of S2 noted and 2/6 systolic murmur at the apex. ABDOMEN: Soft, nontender, nondistended, normoactive bowel sounds, no guarding, no hepatomegaly EXTREMITIES: 2+ DP pulses, 1+ pitting edema NEUROLOGICAL: Nonfocal. Normal speech, gait not observed. SKIN: Warm, dry, no rashes or lesions noted Laboratory Results - last 24 hr 04/19/17 04/19/17 04/19/17 11:45 17:34 22:46 Anticoagulation Therapy No Result Required. Puncture Site Left radial ABG pH 7.33 L ABG pCO2 at Pt Temp 71.3 H* ABG pO2 at Pt Temp 92.6 D ABG HCO3 36.3 H ABG O2 Sat (Measured) 97.1 ABG O2 Content 12.5 L ABG Base Excess 9.1 H Good Test Positive O2 Delivery Device Bipap Oxygen Flow Rate 40 Vent Mode S/t Vent Rate 22 Mechanical Rate No Result Required. PEEP Pressure Support Vent 20/8 POC Glucometer 367 372 04/20/17 04/20/17 06:16 07:43 Anticoagulation Therapy Puncture Site Left radial ABG pH 7.33 L ABG pCO2 at Pt Temp 74.7 H* ABG pO2 at Pt Temp 77.3 L ABG HCO3 37.9 H ABG O2 Sat (Measured) 95.4 ABG O2 Content 10.1 L ABG Base Excess 10.9 H Good Test Positive O2 Delivery Device Bipap Oxygen Flow Rate 40 Vent Mode S/t Vent Rate 22 Mechanical Rate Yes PEEP 0.0 Pressure Support Vent Ipap 20/epap 8 POC Glucometer 267 Active Medications Generic Name Dose Route Start Last Admin Trade Name Freq PRN Reason Stop Dose Admin Albuterol Sulfate 1 amp 04/17/17 04:46 Ventolin 0.083% Nebulizer Soln - NEB Q4H PRN SHORT OF BREATH/WHEEZING Albuterol/Ipratropium 1 amp 04/17/17 06:00 04/20/17 06:49 Duoneb - NEB 1 amp QIDR JOSLYN Administration Amlodipine Besylate 10 mg 04/17/17 10:00 04/19/17 09:02 Norvasc - PO 10 mg DAILY JOSLYN Administration Aspirin 81 mg 04/17/17 10:00 04/19/17 09:02 Ecotrin - PO 81 mg DAILY JOSLYN Administration Atorvastatin Calcium 40 mg 04/17/17 22:00 04/19/17 22:42 Lipitor - PO 40 mg HS JOSLYN Administration Carvedilol 12.5 mg 04/17/17 10:00 04/19/17 22:42 Coreg - PO 12.5 mg BID JOSLYN Administration Escitalopram Oxalate 20 mg 04/17/17 10:00 04/19/17 09:01 Lexapro - PO 20 mg DAILY JOSLYN Administration Ferrous Sulfate 325 mg 04/17/17 10:00 04/19/17 09:02 Feosol - PO 325 mg DAILY JOSLYN Administration Furosemide 40 mg 04/19/17 14:00 04/20/17 06:10 Lasix - PO 40 mg BID@0600,1400 JOSLYN Administration Guaifenesin 10 ml 04/17/17 04:46 Robitussin - PO Q6H PRN COUGH Heparin Sodium (Porcine) 5,000 unit 04/17/17 06:00 04/20/17 06:10 Heparin - SQ 5,000 unit TID JOSLYN Administration Hydralazine HCl 50 mg 04/17/17 06:00 04/20/17 06:10 Apresoline - PO 50 mg TID JOSLYN Administration Metronidazole 500 mg in 100 mls @ 100 mls/hr 04/19/17 18:00 04/20/17 02:39 Flagyl 500mg Premixed Ivpb - IVPB 100 mls/hr Q8H-IV JOSLYN Administration Cefepime HCl 1 gm/ Dextrose 100 mls @ 200 mls/hr 04/19/17 17:30 04/20/17 06: 08 IVPB 200 mls/hr Q12H JOSLYN Administration Insulin Aspart 1 vial 04/17/17 16:30 04/20/17 06:16 Novolog Vial Sliding Scale - SQ 6 units ACHS JOSLYN Administration Protocol Lisinopril 5 mg 04/17/17 10:00 04/19/17 09:02 Prinivil PO 5 mg DAILY JOLSYN Administration Methylprednisolone Sodium Succinate 40 mg 04/18/17 18:00 04/20/17 02:39 Solu-Medrol - IVPUSH 40 mg Q8H-IV JOSLYN Administration Olanzapine 10 mg 04/17/17 10:00 04/19/17 22:42 Zyprexa - PO 10 mg BID JOSLYN Administration ASSESSMENT/PLAN: 61yo F with h/o HTN, HLD, pre-diabetes, CAD, dCHF, hep c, CKD stage III-IV, COPD , schizophrenia, active smoker with presentation of SOB after a holiday green party. 1) Acute hypoxic hypercapnic respiratory distress --2/2 COPD exacerbation vs. dCHF exacerbation --Components of each noted on exam; improving --Slightly more somnolent today --On Bipap, however poor mental status can be contraindicated --Repeat ABG --Maintain SpO2 88-92% to prevent V/Q mismatch worsening --Pulmonology on board --Continue Solumedrol 40mg IVP q8h --Continue duonebs scheduled; albuterol q4h PRN --Pt cannot receive trilogy device or oxygen due to continued smoking --Possibility for pulmonary rehab upon discharge 2) Pneumonia --HCAP vs. aspiration PNA --Confirmed by Chest CT: compressive atelectasis in the LLL, however air bronchograms noted in the RLL --CT Chest showing infiltrative processes in R lobes --Consult ID; pt penicillin allergic --ID consulted --Per recommendations start Cefepime and Flagyl --HIV testing with patient consent --Legionella urinary antigen 3) Diastolic CHF --Continued b/l pitting edema; however improved --Echo 03/27/17: L systolic normal size and function --Will transition to Lasix 40mg PO BID --Despite edema pt showing signs of volume contraction on labs; most likely will see mobilization of some more fluid soon --Daily weights --Pt voiding without retention since melendez discontinuation 4) HTN --Continue home medication Norvasc 10mg qdaily Coreg 12.5 mg PO BID Hydralazine 50mg TID Lisinopril 5mg qdaily 5) Schizoprenia history --Not suicidal currently --Lexapro 20mg qDaily --Zyprexa 10mg PO BID 6) Iron deficiency anemia --Cont Iron supplementation --Monitor signs of constipation 7) SANTO Cr 1.2 (baseline 0.9) Most likely cardio-renal syndrome 8) Pre-diabetes --A1C this past month 6.2 (prior 5.6) --Diet counselling --Hyperglycemia iatrogenically induced due to steroids for her respiratory status FEN: Fluids: Avoid due to overload Electrolytes abnormalities: None currently Nutrition: Diabetic and sodium controlled PPX: DVT - Heparin SQ TID Dispo: Continue Tele monitoring; Low threshold for intubation however would like to avoid due to increased time intubated forseen Code Status: Full code Case to be discussed with Dr. Richard Reed, DO - Internal Medicine PGY-1 Visit type - Emergency Visit Emergency Visit: No - New Patient This patient is new to me today: No - Critical Care Critical Care patient: No
[2017-04-20 08:27] LABS: HEMATOCRIT 26.6 % (32.4-45.2); HEMOGLOBIN 7.8 GM/dL (10.7-15.3); MCH 22.9 pg (25.7-33.7); MCHC 29.3 g/dl (32.0-36.0); MEAN CELL VOLUME 78.2 fl (80-96); MEAN PLT VOLUME 7.1 fl (7.5-11.1); PLATELET COUNT 228 K/MM3 (134-434); RDW 20.1 % (11.6-15.6); WHITE BLOOD COUNT 8.8 K/mm3 (4.0-10.0)
[2017-04-20 09:14] LABS: ANION GAP 8 (8-16); BLOOD UREA NITROGEN 48 mg/dL (7-18); CALCIUM 8.7 mg/dL (8.5-10.1); CHLORIDE 96 mmol/L (98-107); CO2 36 mmol/L (21-32); CREATININE 1.4 mg/dL (0.55-1.02); GLUCOSE,RANDOM 244 mg/dL (74-106); SODIUM 140 mmol/L (136-145)
[2017-04-20 09:18] LABS: POTASSIUM 4.5 mmol/L (3.5-5.1)
[2017-04-20] MEDS: ASPIRIN COATED 81 MG TABLET.EC PO SCH (09:22)
[2017-04-20] MEDS: FERROUS SO4 325 MG TABLET (FP) PO SCH (09:22)
[2017-04-20] MEDS: CARVEDILOL 12.5 MG TABLET (FP) PO SCH ×2 (09:22→21:36)
[2017-04-20] MEDS: amLODIPine BESYLATE 10 MG TABLET (FP) PO SCH (09:23)
[2017-04-20] MEDS: ESCITALOPRAM OXALATE 20 MG TABLET (FP) PO SCH (09:23)
[2017-04-20] MEDS: LISINOPRIL 5 MG TABLET (FP) PO SCH (09:23)
[2017-04-20] MEDS: OLANZapine 10 MG TABLET PO SCH ×2 (09:24→21:38)
--- NOTE | 2017-04-20 11:58 | PN ---
Progress Note, Physician Chief Complaint: ID Cefepime and metronidazole Dyspnea about the same BIPAP mask - Current Medication List Current Medications: Active Medications Albuterol Sulfate (Ventolin 0.083% Nebulizer Soln -) 1 amp NEB Q4H PRN PRN Reason: SHORT OF BREATH/WHEEZING Albuterol/Ipratropium (Duoneb -) 1 amp NEB QIDR [facility] Last Admin: 04/20/17 06:49 Dose: 1 amp Amlodipine Besylate (Norvasc -) 10 mg PO DAILY [facility] Last Admin: 04/20/17 09:23 Dose: 10 mg Aspirin (Ecotrin -) 81 mg PO DAILY [facility] Last Admin: 04/20/17 09:22 Dose: 81 mg Atorvastatin Calcium (Lipitor -) 40 mg PO HS [facility] Last Admin: 04/19/17 22:42 Dose: 40 mg Carvedilol (Coreg -) 12.5 mg PO BID [facility] Last Admin: 04/20/17 09:22 Dose: 12.5 mg Escitalopram Oxalate (Lexapro -) 20 mg PO DAILY [facility] Last Admin: 04/20/17 09:23 Dose: Not Given Ferrous Sulfate (Feosol -) 325 mg PO DAILY [facility] Last Admin: 04/20/17 09:22 Dose: 325 mg Furosemide (Lasix -) 40 mg PO BID@0600,1400 [facility] Last Admin: 04/20/17 06:10 Dose: 40 mg Guaifenesin (Robitussin -) 10 ml PO Q6H PRN PRN Reason: COUGH Heparin Sodium (Porcine) (Heparin -) 5,000 unit SQ TID [facility] Last Admin: 04/20/17 06:10 Dose: 5,000 unit Hydralazine HCl (Apresoline -) 50 mg PO TID [facility] Last Admin: 04/20/17 06:10 Dose: 50 mg Metronidazole (Flagyl 500mg Premixed Ivpb -) 500 mg in 100 mls @ 100 mls/hr IVPB Q8H-IV [facility] Last Admin: 04/20/17 09:28 Dose: 100 mls/hr Cefepime HCl 1 gm/ Dextrose 100 mls @ 200 mls/hr IVPB Q12H [facility] Last Admin: 04/20/17 06:08 Dose: 200 mls/hr Insulin Aspart (Novolog Vial Sliding Scale -) 1 vial SQ ACHS [facility] PRN Reason: Protocol Last Admin: 04/20/17 11:46 Dose: 6 units Lisinopril (Prinivil) 5 mg PO DAILY [facility] Last Admin: 04/20/17 09:23 Dose: 5 mg Methylprednisolone Sodium Succinate (Solu-Medrol -) 40 mg IVPUSH Q8H-IV [facility] Last Admin: 04/20/17 09:23 Dose: 40 mg Olanzapine (Zyprexa -) 10 mg PO BID [facility] Last Admin: 04/20/17 09:24 Dose: Not Given - Objective Vital Signs: Vital Signs Temperature 98 F 04/20/17 10:00 Pulse Rate 74 04/20/17 10:00 Respiratory Rate 22 04/20/17 10:00 Blood Pressure 139/80 04/20/17 08:33 O2 Sat by Pulse Oximetry (%) 96 04/20/17 09:00 Constitutional: Yes: Moderate Distress, Obese Cardiovascular: Yes: S1, S2 Respiratory: Yes: Diminished Gastrointestinal: Yes: Soft Edema: Yes Labs: CBC, BMP 04/20/17 08:00 04/20/17 08:00 INR, PTT INR 1.04 (0.82-1.09) 04/13/17 15:00 Assessment/Plan Microbiology 04/13/17 15:20 Urine - Urine Clean Catch Urine Culture - Final 04/13/17 15:00 Blood - Peripheral Venous Blood Culture - Final NO GROWTH AFTER 5 DAYS INCUBATION 04/13/17 15:00 Blood - Peripheral Venous Blood Culture - Final NO GROWTH AFTER 5 DAYS INCUBATION Laboratory Tests 04/20/17 04/20/17 08:00 08:00 WBC 8.8 Hgb 7.8 L Hct 26.6 L Plt Count 228 BUN 48 H Creatinine 1.4 H ASSESSMENT ACUTE PNEUMONIA UNSPECIFIED ETIOLOGY SEVERE COPD CHF Plan Continue Cefepime as ordered Ora WEINER
--- NOTE | 2017-04-20 12:36 | PN ---
Progress Note, Physician History of Present Illness: pulmonary awake,alert,on bipap,-resp distress wants to eat - Current Medication List Current Medications: Active Medications Albuterol Sulfate (Ventolin 0.083% Nebulizer Soln -) 1 amp NEB Q4H PRN PRN Reason: SHORT OF BREATH/WHEEZING Albuterol/Ipratropium (Duoneb -) 1 amp NEB QIDR [facility] Last Admin: 04/20/17 06:49 Dose: 1 amp Amlodipine Besylate (Norvasc -) 10 mg PO DAILY [facility] Last Admin: 04/20/17 09:23 Dose: 10 mg Aspirin (Ecotrin -) 81 mg PO DAILY [facility] Last Admin: 04/20/17 09:22 Dose: 81 mg Atorvastatin Calcium (Lipitor -) 40 mg PO HS [facility] Last Admin: 04/19/17 22:42 Dose: 40 mg Carvedilol (Coreg -) 12.5 mg PO BID [facility] Last Admin: 04/20/17 09:22 Dose: 12.5 mg Escitalopram Oxalate (Lexapro -) 20 mg PO DAILY [facility] Last Admin: 04/20/17 09:23 Dose: Not Given Ferrous Sulfate (Feosol -) 325 mg PO DAILY [facility] Last Admin: 04/20/17 09:22 Dose: 325 mg Furosemide (Lasix -) 40 mg PO BID@0600,1400 [facility] Last Admin: 04/20/17 06:10 Dose: 40 mg Guaifenesin (Robitussin -) 10 ml PO Q6H PRN PRN Reason: COUGH Heparin Sodium (Porcine) (Heparin -) 5,000 unit SQ TID [facility] Last Admin: 04/20/17 06:10 Dose: 5,000 unit Hydralazine HCl (Apresoline -) 50 mg PO TID [facility] Last Admin: 04/20/17 06:10 Dose: 50 mg Cefepime HCl 1 gm/ Dextrose 100 mls @ 200 mls/hr IVPB Q8H-IV [facility] Insulin Aspart (Novolog Vial Sliding Scale -) 1 vial SQ ACHS [facility] PRN Reason: Protocol Last Admin: 04/20/17 11:46 Dose: 6 units Lisinopril (Prinivil) 5 mg PO DAILY [facility] Last Admin: 04/20/17 09:23 Dose: 5 mg Methylprednisolone Sodium Succinate (Solu-Medrol -) 40 mg IVPUSH Q8H-IV [facility] Last Admin: 04/20/17 09:23 Dose: 40 mg Olanzapine (Zyprexa -) 10 mg PO BID [facility] Last Admin: 04/20/17 09:24 Dose: Not Given - Objective Vital Signs: Vital Signs Temperature 98 F 04/20/17 10:00 Pulse Rate 74 04/20/17 10:00 Respiratory Rate 22 04/20/17 10:00 Blood Pressure 139/80 04/20/17 08:33 O2 Sat by Pulse Oximetry (%) 96 04/20/17 09:00 Constitutional: Yes: Calm, Obese Eyes: Yes: WNL HENT: Yes: WNL Neck: Yes: WNL Cardiovascular: Yes: Regular Rate and Rhythm, S1, S2 Respiratory: Yes: Diminished Gastrointestinal: Yes: Normal Bowel Sounds, Soft Extremities: Yes: WNL Edema: Yes Edema: LLE: 3+, RLE: 3+ Labs: CBC, BMP 04/20/17 08:00 04/20/17 08:00 INR, PTT INR 1.04 (0.82-1.09) 04/13/17 15:00 Assessment/Plan Problem List - Problems (1) Acute on chronic respiratory failure with hypoxia and hypercapnia Code(s): J96.21 - ACUTE AND CHRONIC RESPIRATORY FAILURE WITH HYPOXIA; J96.22 - ACUTE AND CHRONIC RESPIRATORY FAILURE WITH HYPERCAPNIA (2) COPD exacerbation Code(s): J44.1 - CHRONIC OBSTRUCTIVE PULMONARY DISEASE W (ACUTE) EXACERBATION (3) Acute on chronic diastolic (congestive) heart failure Code(s): I50.33 - ACUTE ON CHRONIC DIASTOLIC (CONGESTIVE) HEART FAILURE (4) Bipolar disorder Code(s): F31.9 - BIPOLAR DISORDER, UNSPECIFIED Qualifiers: Active/Remission status: remission status unspecified Qualified Code(s): F31.9 - Bipolar disorder, unspecified (5) Diabetes mellitus Code(s): E11.9 - TYPE 2 DIABETES MELLITUS WITHOUT COMPLICATIONS Qualifiers: Diabetes mellitus type: type 2 Diabetes mellitus complication status: without complication Diabetes mellitus long-term insulin use: without termite control representative use Qualified Code(s): E11.9 - Type 2 diabetes mellitus without complications (6) Hypertension Code(s): I10 - ESSENTIAL (PRIMARY) HYPERTENSION Qualifiers: Hypertension type: essential hypertension Qualified Code(s): I10 - Essential (primary) hypertension (7) Schizophrenia Code(s): F20.9 - SCHIZOPHRENIA, UNSPECIFIED Qualifiers: Schizophrenia type: unspecified Qualified Code(s): F20.9 - Schizophrenia, unspecified Assessment/Plan Acute on Chronic Hypoxic and Hypercapneic Respiratory Failure Acute COPD Exacerbation Acute on Chronic Diastolic Heart Failure Pneumonia HTN DM Schizophrenia Bipolar Disorder - continue medrol taper - inhaled bronchodilators standing and PRN - O2 to keep Spo2 88-92% - BiPAP at night and PRN during day - lasix - monitor urine output, creatinine - DVT prophylaxis - daily wts - antibiotics as per GAUTAM LOZANO
--- NOTE | 2017-04-20 13:28 | PN ---
Teaching Attending Note Name of Resident: Raghu Reed ATTENDING PHYSICIAN STATEMENT I saw and evaluated the patient. I reviewed the resident's note and discussed the case with the resident. I agree with the resident's findings and plan as documented. SUBJECTIVE:requesting food. denies CP, SOB, fever, chills, cough OBJECTIVE: Last Vital Signs Temp Pulse Resp BP Pulse Ox 98 F 74 22 139/80 96 04/20/17 10:00 04/20/17 10:00 04/20/17 10:00 04/20/17 08:33 04/20/17 09:00 Intake & Output 04/17/17 04/18/17 04/19/17 04/20/17 23:59 23:59 23:59 23:59 Intake Total 366 155 805 200 Output Total 4100 3600 Balance -3734 -3445 805 200 Weight 257 lb 242 lb 8 oz 241 lb 8 oz General lethargic, easily arrousable to verbal stimuli CV S1 S2 Lungs decreased breath sounds bases, some mild expiratory wheezing. poor inspiratory effort Abdomen soft NT/ND Extremities 1+ pitting edema B/L LE ASSESSMENT AND PLAN: 61 yo F with PMHx of morbid obesity, Diastolic HF, COPD, suspected DIRK, NIDDM, HTN, HLD, schizophrenia/bipolar disorder, frequent recent admissions with hypoxic/hypercapnic respiratory failure requiring Bipap/Intubation, last discharged on 04/03/2017 on home oxygen, oral steroid taper and lasix reports was doing well since her discharge (states is on Prednisone 30 mg currently) admitted with recurrent Acute hypoxic/hypercapneic respiratory failure, Diastolic HF exacerbation and Mild COPD 1. Acute hyopxic/hypercapnic respiratory failure- due to diastolic CHF exacerbation vs COPD. mental status is the same. she sleeps frequently however easily arrousable to verbal stimuli. CO2 trending up. will repeat ABG in the afternoon. spoke with ICU attending does not think pt requires intubation at this time and that can continue careful watching at this time. increase medrol to Q6H. on lasix po. started on Cefipime and flagyl for multilobar PNA. can not get triology at home due to smoking status. pt is unwilling to quit. pulm on board 2. HTN-controlled. cont current management 3. Iron def anemia- Hgb stable. cont iron supplements. no indication for transfusion 4. Hyperglycemia- a1c 6.2, likely steroid induced. cont BGM and iss while hospitalized and on steroids 5. SANTO- improved. cont current management 6. Continuous nicotine dependence- refused nicotine patch. states she has desire to "eventually" quit. states she is cutting back. counseled on risks of continued smoking and worsening pulmonary status 7. Schizophrenia/bipolar disorder- zyprexa 8. Morbid obesity- counseled on weight loss and dietary modifications. bariatric referral as outpatient. 9. suspect DIRK, ?OHS 10. DVT ppx- hep sq 11. poor prognosis. low threshold for intubation.
[2017-04-20 15:27] LABS: ARTERIAL BLD GAS O2 SATURATION 91.2 % (90-98.9); ARTERIAL BLOOD GAS BASE EXCESS 11.4 meq/l (-2-2); ARTERIAL BLOOD GAS PO2 63.3 mmHg (80-100); ARTERIAL BLOOD GAS pH 7.34 (7.35-7.45)
[2017-04-20 15:34] LABS: ALLENS TEST POSITIVE
[2017-04-20 15:38] LABS: ARTERIAL BLOOD GAS PCO2 74.1 mmHg (35-45)
[2017-04-20] MEDS ORDERED: CEFEPIME HCL 1 GM VIAL (RESTRICTED TO ID) IVPB SCH (18:00)
[2017-04-20] MEDS ORDERED: CEFEPIME 1 GM in DEXTROSE 5%-WATER - 100 ML IVPB SCH (18:00)
[2017-04-20] MEDS ORDERED: PT OWN MED DRAWER 7, Y5N ONE ×2 (20:48→21:09)
[2017-04-20] MEDS ORDERED: INSULIN (NOVOLOG) ASPART 100 UNITS/ML 10ML VIAL ONE (21:26)
[2017-04-20] MEDS: ATORVASTATIN CA 40 MG TABLET (FP) PO SCH (21:36)
[2017-04-20] MEDS ORDERED: INSULIN DETEMIR 100 UNITS/ML MDV SQ SCH (22:00)
[2017-04-20] MEDS ORDERED: methylPREDNISolone NA SUCC 40 MG/1 ML VIAL IVPUSH SCH (22:00)
[2017-04-20] MEDS ORDERED: guaiFENesin 200 MG/10 ML 10 ML UNIT-DOSE CUPS PO PRN (23:35)
[2017-04-20] MEDS ORDERED: ALBUTEROL SO4 0.083% IH SOL 2.5 MG/3 ML VIAL.NEB. NEB PRN (23:35)
[2017-04-21] MEDS: ALBUTEROL SO4 2.5/IPRATROPIUM 0.5 INH SOL 3 ML VIAL.NEB. NEB SCH ×2 (00:05→06:45)
[2017-04-21] MEDS: CEFEPIME 1 GM in DEXTROSE 5%-WATER - 100 ML IVPB SCH ×3 (02:53→18:05)
[2017-04-21] MEDS: FUROSEMIDE 40 MG TABLET (FP) PO SCH ×2 (06:36→15:44)
[2017-04-21] MEDS: HEPARIN NA (PORCINE) 5,000 UNITS/ML 1ML VIAL SQ SCH ×3 (06:37→22:47)
[2017-04-21] MEDS: hydrALAZINE HCL 50 MG TABLET (FP) PO SCH ×3 (06:37→22:45)
[2017-04-21] MEDS: INSULIN SLIDING SCALE (NOVOLOG) 1 VIAL SQ SCH ×4 (06:38→22:50)
[2017-04-21 08:47] LABS: HEMATOCRIT 28.3 % (32.4-45.2); HEMOGLOBIN 8.3 GM/dL (10.7-15.3); MCH 23.1 pg (25.7-33.7); MCHC 29.1 g/dl (32.0-36.0); MEAN CELL VOLUME 79.3 fl (80-96); MEAN PLT VOLUME 7.2 fl (7.5-11.1); PLATELET COUNT 218 K/MM3 (134-434); RBC 3.58 M/mm3 (3.60-5.2); WHITE BLOOD COUNT 10.6 K/mm3 (4.0-10.0)
[2017-04-21 09:33] LABS: ALBUMIN 3.1 g/dl (3.4-5.0); ALK PHOS 134 U/L (45-117); ANION GAP 4 (8-16); BILIRUBIN,TOTAL 0.4 mg/dL (0.2-1.0); BLOOD UREA NITROGEN 48 mg/dL (7-18); CALCIUM 8.3 mg/dL (8.5-10.1); CHLORIDE 93 mmol/L (98-107); CO2 39 mmol/L (21-32); CREATININE 1.6 mg/dL (0.55-1.02); GLUCOSE,RANDOM 280 mg/dL (74-106); POTASSIUM 4.1 mmol/L (3.5-5.1); SGOT/AST 14 U/L (15-37); SGPT/ALT 34 U/L (12-78); SODIUM 136 mmol/L (136-145); TOT PROT 6.5 g/dl (6.4-8.2)
[2017-04-21] MEDS ORDERED: methylPREDNISolone NA SUCC 40 MG/1 ML VIAL IVPUSH SCH (10:00)
--- NOTE | 2017-04-21 11:00 | PN ---
Progress Note (short form) - Note Progress Note: PULMONARY "I WANT TO BE DISCHARGED" VSS/AFEBRILE AWAKE/ALERT ANICTERIC DIMINISHED DIFFUSE BREATH SOUNDS S1S2 OBESE SOFT NONTENDER LESS EDEMA LOWER EXT LABS/MEDS/NOTES/IMAGES/MICRO REVIEWED Acute on Chronic Hypoxic and Hypercapneic Respiratory Failure Acute COPD Exacerbation Acute on Chronic Diastolic Heart Failure Pneumonia HTN DM Schizophrenia Bipolar Disorder - medrol taper - inhaled bronchodilators standing and PRN - O2 to keep Spo2 88-92% - BiPAP at night and PRN during day - lasix - monitor urine output, creatinine - DVT prophylaxis - daily wts - antibiotics as per ID - Patient is not ready for discharge - Will check spo2/pre/post amb on room air Rojas RACHEL MD
[2017-04-21] MEDS ORDERED: ALBUTEROL SO4 0.083% IH SOL 2.5 MG/3 ML VIAL.NEB. NEB PRN (11:01)
[2017-04-21] MEDS ORDERED: PT OWN MED DRAWER 7, Y5N ONE ×2 (11:07→18:04)
[2017-04-21] MEDS: amLODIPine BESYLATE 10 MG TABLET (FP) PO SCH (11:14)
[2017-04-21] MEDS: FERROUS SO4 325 MG TABLET (FP) PO SCH (11:15)
[2017-04-21] MEDS: LISINOPRIL 5 MG TABLET (FP) PO SCH (11:15)
[2017-04-21] MEDS: ESCITALOPRAM OXALATE 20 MG TABLET (FP) PO SCH (11:15)
[2017-04-21] MEDS: CARVEDILOL 12.5 MG TABLET (FP) PO SCH ×2 (11:15→22:46)
[2017-04-21] MEDS: ASPIRIN COATED 81 MG TABLET.EC PO SCH (11:15)
[2017-04-21] MEDS: OLANZapine 10 MG TABLET PO SCH ×2 (11:16→22:46)
--- NOTE | 2017-04-21 11:38 | PN ---
Progress Note (short form) - Note Progress Note: markedly improved today no respiratory distress Vital Signs Period Temp Pulse Resp BP Sys/Osei Pulse Ox Last 24 Hr 97.3 F-98.2 F 68-82 20-24 134-154/69-101 93-96 cor-rrr lungs bilateral rhonchi/wheeze abd firm, nt ext 2+ edema CBC, BMP 04/21/17 08:11 04/21/17 08:11 Microbiology 04/19/17 22:15 Blood - Peripheral Venous Blood Culture - Preliminary Pending Organism 04/19/17 22:15 Blood - Peripheral Venous Blood Culture - Preliminary NO GROWTH OBTAINED AFTER 24 HOURS, INCUBATION TO CONTINUE FOR 4 DAYS. 04/13/17 15:00 Blood - Peripheral Venous Blood Culture - Final NO GROWTH AFTER 5 DAYS INCUBATION 04/13/17 15:00 Blood - Peripheral Venous Blood Culture - Final NO GROWTH AFTER 5 DAYS INCUBATION 04/13/17 15:20 Urine - Urine Clean Catch Urine Culture - Final hiv negative a/p hypercapneir respiratory failure abnormal chest ct- cannot r/o pneumonia-continue cefepime ?malignancy - active smoker ?pulmonary HTN-/?CHF ?etiology of bilateral lower extremity edema-weight gain noted microcytic anemia continue cefepime bacteremia- gpc clusters- repeat blood cultures today, add vancomycin
[2017-04-21] MEDS ORDERED: VANCOMYCIN 1,250 MG in DEXTROSE 5%-WATER - 250 ML IVPB ONE (12:15)
--- NOTE | 2017-04-21 13:36 | PN ---
Teaching Attending Note Name of Resident: Raghu Reed ATTENDING PHYSICIAN STATEMENT I saw and evaluated the patient. I reviewed the resident's note and discussed the case with the resident. I agree with the resident's findings and plan as documented. SUBJECTIVE:improved. requesting to go home. denies Cp, SOB, fever, chills, N/V/C /D OBJECTIVE: Last Vital Signs Temp Pulse Resp BP Pulse Ox 97.8 F 68 20 154/76 96 04/20/17 23:00 04/21/17 11:53 04/21/17 10:00 04/21/17 10:00 04/21/17 11:53 Intake & Output 04/18/17 04/19/17 04/20/17 04/21/17 23:59 23:59 23:59 23:59 Intake Total 155 805 600 950 Output Total 3600 Balance -3445 805 600 950 Weight 257 lb 242 lb 8 oz 241 lb 8 oz 262 lb 8 oz General NAD, alert CV S1 S2 Lungs decrased breath sounds L base. improved air entry Abdomen soft NT/ND Extremities 1+ pitting edema B/L LE ASSESSMENT AND PLAN: 61 yo F with PMHx of morbid obesity, Diastolic HF, COPD, suspected DIRK, NIDDM, HTN, HLD, schizophrenia/bipolar disorder, frequent recent admissions with hypoxic/hypercapnic respiratory failure requiring Bipap/Intubation, last discharged on 04/03/2017 on home oxygen, oral steroid taper and lasix reports was doing well since her discharge (states is on Prednisone 30 mg currently) admitted with recurrent Acute hypoxic/hypercapneic respiratory failure, Diastolic HF exacerbation and Mild COPD 1. Acute hyopxic/hypercapnic respiratory failure- due to diastolic CHF exacerbation vs COPD vs PNA. mental status is improved. alert and does not fall asleep during conversation. decrease medrol to 40mg daily. started on Cefipime for multilobar PNA. on lasix po. clinically improved. current on NC. pulm on board 2. + bacteremia- +GPC. awaiting speciation. will give vanco x1. await for speciation 3. HTN-controlled. cont current management 4. Iron def anemia- Hgb stable. cont iron supplements. no indication for transfusion 5. Hyperglycemia- a1c 6.2, likely steroid induced. cont BGM and iss while hospitalized and on steroids 6. SANTO- improved. cont current management 7. Continuous nicotine dependence- refused nicotine patch. states she has desire to "eventually" quit. states she is cutting back. counseled on risks of continued smoking and worsening pulmonary status 8. Schizophrenia/bipolar disorder- zyprexa 9. Morbid obesity-has hyperphagia and constantly requesting to eat. dietary eval. needs counselling on proper nutrition. possible worse on steroids. counseled on weight loss and dietary modifications. bariatric referral as outpatient. 10. suspect DIRK, ?OHS 11. DVT ppx- hep sq
[2017-04-21] MEDS: ALBUTEROL SO4 2.5/IPRATROPIUM 0.5 INH SOL 3 ML VIAL.NEB. NEB PRN ×2 (17:32→23:35)
--- NOTE | 2017-04-21 17:33 | PN ---
Physical Exam: SUBJECTIVE: No acute events overnight. Pt using CPAP at night and currently on 3LNC. Pt reports better breathing and continues to be hungry. Pt eager to go home. OBJECTIVE: Vital Signs Period Temp Pulse Resp BP Sys/Osei Pulse Ox Last 24 Hr 97.3 F-97.9 F 68-82 20-22 118-154/64-101 87-98 GENERAL: NAD, pt is most alert today sitting at bedside, awake, and fully oriented HEENT: No JVD, sclera anicteric, EOMI PATRICE LUNGS: Slight wheezes at bases bilaterally, no rales noted today. No accessory muscle use. On 3LNC HEART: RRR, S1, S2 without murmur ABDOMEN: Soft, nontender, nondistended, normoactive bowel sounds, no guarding, no hepatosplenomegaly, no masses. EXTREMITIES: 2+ DP pulses, warm, well-perfused, 1+ edema to mid lower legs today NEUROLOGICAL: Cranial nerves II through XII grossly intact. Normal speech, gait not observed. PSYCH: Normal mood, jovial affect. SKIN: Warm, dry, no rashes or lesions noted Laboratory Results - last 24 hr 04/20/17 04/21/17 04/21/17 21:34 06:35 08:11 WBC 10.6 H RBC 3.58 L Hgb 8.3 L Hct 28.3 L MCV 79.3 L MCH 23.1 L MCHC 29.1 L RDW 20.0 H Plt Count 218 MPV 7.2 L Sodium Potassium Chloride Carbon Dioxide Anion Gap BUN Creatinine Creat Clearance w eGFR POC Glucometer 323 265 Random Glucose Calcium Total Bilirubin AST ALT Alkaline Phosphatase Total Protein Albumin 04/21/17 04/21/17 08:11 12:07 WBC RBC Hgb Hct MCV MCH MCHC RDW Plt Count MPV Sodium 136 Potassium 4.1 Chloride 93 L Carbon Dioxide 39 H Anion Gap 4 L BUN 48 H Creatinine 1.6 H Creat Clearance w eGFR 32.66 POC Glucometer 326 Random Glucose 280 H Calcium 8.3 L Total Bilirubin 0.4 AST 14 L D ALT 34 Alkaline Phosphatase 134 H Total Protein 6.5 Albumin 3.1 L Active Medications Generic Name Dose Route Start Last Admin Trade Name Freq PRN Reason Stop Dose Admin Albuterol Sulfate 1 amp 04/21/17 11:01 Ventolin 0.083% Nebulizer Soln - NEB Q1H PRN SHORT OF BREATH/WHEEZING Albuterol/Ipratropium 1 amp 04/21/17 11:44 Duoneb - NEB Q6H PRN SHORT OF BREATH/WHEEZING Amlodipine Besylate 10 mg 04/21/17 10:00 04/21/17 11:14 Norvasc - PO 10 mg DAILY JOSLYN Administration Aspirin 81 mg 04/21/17 10:00 04/21/17 11:15 Ecotrin - PO 81 mg DAILY JOSLYN Administration Atorvastatin Calcium 40 mg 04/21/17 22:00 Lipitor - PO HS JOSLYN Carvedilol 12.5 mg 04/21/17 10:00 04/21/17 11:15 Coreg - PO 12.5 mg BID JOSLYN Administration Escitalopram Oxalate 20 mg 04/21/17 10:00 04/21/17 11:15 Lexapro - PO 20 mg DAILY JOSLYN Administration Ferrous Sulfate 325 mg 04/21/17 10:00 04/21/17 11:15 Feosol - PO 325 mg DAILY JOSLYN Administration Furosemide 40 mg 04/21/17 06:00 04/21/17 15:44 Lasix - PO 40 mg BIDLASIX JOSLYN Administration Guaifenesin 10 ml 04/20/17 23:35 Robitussin - PO Q6H PRN COUGH Heparin Sodium (Porcine) 5,000 unit 04/21/17 06:00 04/21/17 15:44 Heparin - SQ 5,000 unit TID JOSLYN Administration Hydralazine HCl 50 mg 04/21/17 06:00 04/21/17 15:44 Apresoline - PO 50 mg TID JOSLYN Administration Cefepime HCl 1 gm/ Dextrose 100 mls @ 200 mls/hr 04/21/17 02:00 04/21/17 11: 18 IVPB 200 mls/hr Q8H-IV JOSLYN Administration Insulin Aspart 1 vial 04/21/17 07:00 04/21/17 12:25 Novolog Vial Sliding Scale - SQ 8 units ACHS JOSLYN Administration Protocol Insulin Detemir 5 units 04/21/17 22:00 Levemir Vial SQ HS JOSLYN Lisinopril 5 mg 04/21/17 10:00 04/21/17 11:15 Prinivil PO 5 mg DAILY JOSLYN Administration Methylprednisolone Sodium Succinate 40 mg 04/22/17 10:00 Solu-Medrol - IVPUSH DAILY JOSLYN Olanzapine 10 mg 04/21/17 10:00 04/21/17 11:16 Zyprexa - PO 10 mg BID JOSLYN Administration ASSESSMENT/PLAN: 61yo F with h/o HTN, HLD, pre-diabetes, CAD, dCHF, hep c, CKD stage III-IV, COPD , schizophrenia, active smoker with presentation of SOB after a 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 1) Acute hypoxic hypercapnic respiratory distress --2/2 COPD exacerbation vs. dCHF exacerbation --Components of each noted on exam; improving --Alert today --Continue 3LNC with CPAP at night --Maintain SpO2 88-92% to prevent V/Q mismatch worsening --Pulmonology on board --Decreased to Solumedrol 40mg IVP qDaily --Decreased duonebs to PRN today; albuterol q4h PRN 2) Pneumonia --HCAP vs. aspiration PNA --Confirmed by Chest CT: compressive atelectasis in the LLL, however air bronchograms noted in the RLL --Blood culture with positive GPC; f/u with final reports since possibility of contaminent --Will give one dose of vancomycin --ID consulted --Cefepime to continue 3) Diastolic CHF --Decreased b/l pitting edema --Echo 03/27/17: L systolic normal size and function --Continue Lasix 40mg PO BID --Daily weights 4) HTN --Continue home medication Norvasc 10mg qdaily Coreg 12.5 mg PO BID Hydralazine 50mg TID Lisinopril 5mg qdaily 5) Schizoprenia history --Not suicidal currently --Lexapro 20mg qDaily --Zyprexa 10mg PO BID 6) Iron deficiency anemia --Cont Iron supplementation --Monitor signs of constipation 7) SANTO Cr 1.6 (baseline 0.9) Most likely cardio-renal syndrome and possible due to recent aggressive diuresis 8) Pre-diabetes --A1C this past month 6.2 (prior 5.6) --Diet counselling --Hyperglycemia iatrogenically induced due to steroids for her respiratory status FEN: Fluids: Avoid due to overload Electrolytes abnormalities: None currently Nutrition: Diabetic and sodium controlled; dietary consultation PPX: DVT - Heparin SQ TID Dispo: Beginning to optimize patient; questionable compliance with home medication Code Status: Full code Case discussed with Dr. Richard Reed, DO - Internal Medicine PGY-1 Visit type - Emergency Visit Emergency Visit: No - New Patient This patient is new to me today: No - Critical Care Critical Care patient: No
[2017-04-21] MEDS ORDERED: INSULIN DETEMIR 100 UNITS/ML MDV SQ SCH (22:00)
[2017-04-21] MEDS: ATORVASTATIN CA 40 MG TABLET (FP) PO SCH (22:45)
[2017-04-21] MEDS: ACETAMINOPHEN 325 MG TABLET (FP) PO PRN (22:45)
[2017-04-22] MEDS ORDERED: PT OWN MED DRAWER 7, Y5N ONE ×2 (02:31→10:29)
[2017-04-22] MEDS: CEFEPIME 1 GM in DEXTROSE 5%-WATER - 100 ML IVPB SCH ×2 (02:34→13:51)
[2017-04-22] MEDS: HEPARIN NA (PORCINE) 5,000 UNITS/ML 1ML VIAL SQ SCH ×3 (06:41→22:27)
[2017-04-22] MEDS: FUROSEMIDE 40 MG TABLET (FP) PO SCH ×2 (06:41→14:37)
[2017-04-22] MEDS: hydrALAZINE HCL 50 MG TABLET (FP) PO SCH ×3 (06:41→22:18)
[2017-04-22] MEDS: INSULIN SLIDING SCALE (NOVOLOG) 1 VIAL SQ SCH ×5 (06:53→22:19)
[2017-04-22] MEDS: ACETAMINOPHEN 325 MG TABLET (FP) PO PRN ×2 (06:55→14:36)
[2017-04-22 07:43] LABS: HEMATOCRIT 24.6 % (32.4-45.2); HEMOGLOBIN 7.4 GM/dL (10.7-15.3); MCH 23.3 pg (25.7-33.7); MCHC 30.1 g/dl (32.0-36.0); MEAN CELL VOLUME 77.4 fl (80-96); MEAN PLT VOLUME 7.2 fl (7.5-11.1); PLATELET COUNT 168 K/MM3 (134-434); RBC 3.18 M/mm3 (3.60-5.2); RDW 20.5 % (11.6-15.6); WHITE BLOOD COUNT 6.4 K/mm3 (4.0-10.0)
[2017-04-22 07:58] LABS: ANION GAP 8 (8-16); BLOOD UREA NITROGEN 53 mg/dL (7-18); CALCIUM 8.9 mg/dL (8.5-10.1); CHLORIDE 94 mmol/L (98-107); CO2 37 mmol/L (21-32); CREATININE 1.5 mg/dL (0.55-1.02); GLUCOSE,RANDOM 215 mg/dL (74-106); POTASSIUM 4.4 mmol/L (3.5-5.1); SODIUM 139 mmol/L (136-145)
[2017-04-22] MEDS ORDERED: methylPREDNISolone NA SUCC 40 MG/1 ML VIAL IVPUSH SCH (10:00)
[2017-04-22] MEDS: LISINOPRIL 5 MG TABLET (FP) PO SCH (10:41)
[2017-04-22] MEDS: amLODIPine BESYLATE 10 MG TABLET (FP) PO SCH (10:41)
[2017-04-22] MEDS: ASPIRIN COATED 81 MG TABLET.EC PO SCH (10:41)
[2017-04-22] MEDS: ESCITALOPRAM OXALATE 20 MG TABLET (FP) PO SCH (10:41)
[2017-04-22] MEDS: FERROUS SO4 325 MG TABLET (FP) PO SCH (10:41)
[2017-04-22] MEDS: CARVEDILOL 12.5 MG TABLET (FP) PO SCH ×2 (10:41→22:17)
[2017-04-22] MEDS: OLANZapine 10 MG TABLET PO SCH ×2 (10:42→22:17)
--- NOTE | 2017-04-22 11:19 | PN ---
Progress Note (short form) - Note Progress Note: PULMONARY SUBJECTIVE IMPROVEMENT VSS/AFEBRILE AWAKE/ALERT ANICTERIC DIMINISHED DIFFUSE BREATH SOUNDS S1S2 OBESE SOFT NONTENDER LESS EDEMA LOWER EXT LABS/MEDS/NOTES/IMAGES/MICRO REVIEWED Acute on Chronic Hypoxic and Hypercapneic Respiratory Failure Acute COPD Exacerbation Acute on Chronic Diastolic Heart Failure Pneumonia HTN DM Schizophrenia Bipolar Disorder Needs home o2/Nippv at night Patient's underlying psycho-social issues will likely hinder her from using home o2/NIPPV effectively - medrol changed to prednisone - inhaled bronchodilators standing and PRN - O2 to keep Spo2 88-92% - BiPAP at night and PRN during day - lasix - monitor urine output, creatinine - DVT prophylaxis - daily wts - antibiotics as per ID - smoking cessation is essential Rojas RACHEL MD
[2017-04-22] MEDS: predniSONE 20 MG TABLET (UD) PO SCH (12:23)
--- NOTE | 2017-04-22 12:45 | PN ---
Progress Note (short form) - Note Progress Note: continued cough-moist Vital Signs Period Temp Pulse Resp BP Sys/Osei Pulse Ox Last 24 Hr 97.8 F-98.7 F 67-90 20-20 118-148/61-80 87-98 cor-rrr lungs bilateral rhonchi abd soft,nt ext +edema CBC, BMP 04/22/17 07:15 04/22/17 07:15 Microbiology 04/19/17 22:15 Blood - Peripheral Venous Blood Culture - Preliminary Staphylococcus Coagulase Neg 04/19/17 22:15 Blood - Peripheral Venous Blood Culture - Preliminary NO GROWTH OBTAINED AFTER 48 HOURS, INCUBATION TO CONTINUE FOR 3 DAYS. 04/21/17 07:20 Urine For Antigen Detection Legionella Antigen - Final 04/21/17 07:20 Urine For Antigen Detection Streptococcus pneumoniae Antigen (M - Final 04/13/17 15:00 Blood - Peripheral Venous Blood Culture - Final NO GROWTH AFTER 5 DAYS INCUBATION 04/13/17 15:00 Blood - Peripheral Venous Blood Culture - Final NO GROWTH AFTER 5 DAYS INCUBATION 04/13/17 15:20 Urine - Urine Clean Catch Urine Culture - Final Active Medications Acetaminophen (Tylenol -) 650 mg PO Q4H PRN PRN Reason: FEVER OR PAIN Last Admin: 04/22/17 06:55 Dose: 650 mg Albuterol Sulfate (Ventolin 0.083% Nebulizer Soln -) 1 amp NEB Q1H PRN PRN Reason: SHORT OF BREATH/WHEEZING Albuterol/Ipratropium (Duoneb -) 1 amp NEB Q6H PRN PRN Reason: SHORT OF BREATH/WHEEZING Last Admin: 04/21/17 23:35 Dose: 1 amp Amlodipine Besylate (Norvasc -) 10 mg PO DAILY [facility] Last Admin: 04/22/17 10:41 Dose: 10 mg Aspirin (Ecotrin -) 81 mg PO DAILY [facility] Last Admin: 04/22/17 10:41 Dose: 81 mg Atorvastatin Calcium (Lipitor -) 40 mg PO HS [facility] Last Admin: 04/21/17 22:45 Dose: 40 mg Carvedilol (Coreg -) 12.5 mg PO BID [facility] Last Admin: 04/22/17 10:41 Dose: 12.5 mg Escitalopram Oxalate (Lexapro -) 20 mg PO DAILY [facility] Last Admin: 04/22/17 10:41 Dose: 20 mg Ferrous Sulfate (Feosol -) 325 mg PO DAILY [facility] Last Admin: 04/22/17 10:41 Dose: 325 mg Furosemide (Lasix -) 40 mg PO BIDLASIX [facility] Last Admin: 04/22/17 06:41 Dose: 40 mg Guaifenesin (Robitussin -) 10 ml PO Q6H PRN PRN Reason: COUGH Heparin Sodium (Porcine) (Heparin -) 5,000 unit SQ TID [facility] Last Admin: 04/22/17 06:41 Dose: 5,000 unit Hydralazine HCl (Apresoline -) 50 mg PO TID [facility] Last Admin: 04/22/17 06:41 Dose: 50 mg Cefepime HCl 1 gm/ Dextrose 100 mls @ 200 mls/hr IVPB Q8H-IV [facility] Last Admin: 04/22/17 02:34 Dose: 200 mls/hr Insulin Aspart (Novolog Vial Sliding Scale -) 1 vial SQ ACHS [facility] PRN Reason: Protocol Last Admin: 04/22/17 12:23 Dose: 4 units Insulin Detemir (Levemir Vial) 5 units SQ HS [facility] Last Admin: 04/21/17 22:49 Dose: 5 units Lisinopril (Prinivil) 5 mg PO DAILY [facility] Last Admin: 04/22/17 10:41 Dose: 5 mg Olanzapine (Zyprexa -) 10 mg PO BID [facility] Last Admin: 04/22/17 10:42 Dose: 10 mg Prednisone (Deltasone -) 40 mg PO DAILY [facility] Last Admin: 04/22/17 12:23 Dose: 40 mg hiv negative a/p hypercapneic respiratory failure abnormal chest ct- cannot r/o pneumonia-continue cefepime- if iv cannot be replaced, switch to ceftin- she has penicillin allergy ?malignancy - active smoker ?pulmonary HTN-/?CHF ?etiology of bilateral lower extremity edema-weight gain noted microcytic anemia continue cefepime bacteremia- gpc clusters- coag negative staph-skin contaminant-no need to treat
--- NOTE | 2017-04-22 13:45 | PN ---
Progress Note (short form) - Note Progress Note: c/o pain in her legs. worse on exertion. requesting to go home. denies Cp, SOB, fevr, chills, N/V/C?D Current Medications Generic Name Dose Route Start Last Admin Trade Name Freq PRN Reason Stop Dose Admin Acetaminophen 650 mg 04/21/17 21:46 04/22/17 06:55 Tylenol - PO 650 mg Q4H PRN Administration FEVER OR PAIN Albuterol Sulfate 1 amp 04/21/17 11:01 Ventolin 0.083% Nebulizer Soln - NEB Q1H PRN SHORT OF BREATH/WHEEZING Albuterol/Ipratropium 1 amp 04/21/17 11:44 04/21/17 23:35 Duoneb - NEB 1 amp Q6H PRN Administration SHORT OF BREATH/WHEEZING Amlodipine Besylate 10 mg 04/21/17 10:00 04/22/17 10:41 Norvasc - PO 10 mg DAILY JOSLYN Administration Aspirin 81 mg 04/21/17 10:00 04/22/17 10:41 Ecotrin - PO 81 mg DAILY JOSLYN Administration Atorvastatin Calcium 40 mg 04/21/17 22:00 04/21/17 22:45 Lipitor - PO 40 mg HS JOSLYN Administration Carvedilol 12.5 mg 04/21/17 10:00 04/22/17 10:41 Coreg - PO 12.5 mg BID JOSLYN Administration Escitalopram Oxalate 20 mg 04/21/17 10:00 04/22/17 10:41 Lexapro - PO 20 mg DAILY JOSLYN Administration Ferrous Sulfate 325 mg 04/21/17 10:00 04/22/17 10:41 Feosol - PO 325 mg DAILY JOSLYN Administration Furosemide 40 mg 04/21/17 06:00 04/22/17 06:41 Lasix - PO 40 mg BIDLASIX JOSLYN Administration Guaifenesin 10 ml 04/20/17 23:35 Robitussin - PO Q6H PRN COUGH Heparin Sodium (Porcine) 5,000 unit 04/21/17 06:00 04/22/17 06:41 Heparin - SQ 5,000 unit TID JOSLYN Administration Hydralazine HCl 50 mg 04/21/17 06:00 04/22/17 06:41 Apresoline - PO 50 mg TID JOSLYN Administration Cefepime HCl 1 gm/ Dextrose 100 mls @ 200 mls/hr 04/21/17 02:00 04/22/17 02: 34 IVPB 200 mls/hr Q8H-IV JOSLYN Administration Insulin Aspart 1 vial 04/21/17 07:00 04/22/17 12:23 Novolog Vial Sliding Scale - SQ 4 units ACHS JOSLYN Administration Protocol Insulin Detemir 5 units 04/21/17 22:00 04/21/17 22:49 Levemir Vial SQ 5 units HS JOSLYN Administration Lisinopril 5 mg 04/21/17 10:00 04/22/17 10:41 Prinivil PO 5 mg DAILY JOSLYN Administration Olanzapine 10 mg 04/21/17 10:00 04/22/17 10:42 Zyprexa - PO 10 mg BID JOSLYN Administration Prednisone 40 mg 04/22/17 11:15 04/22/17 12:23 Deltasone - PO 40 mg DAILY JOSLYN Administration Last Vital Signs Temp Pulse Resp BP Pulse Ox 97.8 F 90 20 125/65 91 L 04/22/17 06:00 04/22/17 10:34 04/22/17 06:00 04/22/17 06:00 04/22/17 10:34 Intake & Output 04/19/17 04/20/17 04/21/17 04/22/17 23:59 23:59 23:59 23:59 Intake Total 662 041 5638 200 Balance 187 323 7338 200 Weight 242 lb 8 oz 241 lb 8 oz 262 lb 8 oz General NAD, alert CV S1 S2 Lungs no wheezing, decreased breath sounds bases Abdomen soft NT/ND Extremities 2+ pitting edema B/L LE CBCD WBC 6.4 K/mm3 (4.0-10.0) D 04/22/17 07:15 RBC 3.18 M/mm3 (3.60-5.2) L 04/22/17 07:15 Hgb 7.4 GM/dL (10.7-15.3) L D 04/22/17 07:15 Hct 24.6 % (32.4-45.2) L 04/22/17 07:15 MCV 77.4 fl (80-96) L 04/22/17 07:15 MCHC 30.1 g/dl (32.0-36.0) L 04/22/17 07:15 RDW 20.5 % (11.6-15.6) H 04/22/17 07:15 Plt Count 168 K/MM3 (134-434) D 04/22/17 07:15 MPV 7.2 fl (7.5-11.1) L 04/22/17 07:15 CMP Sodium 139 mmol/L (136-145) 04/22/17 07:15 Potassium 4.4 mmol/L (3.5-5.1) 04/22/17 07:15 Chloride 94 mmol/L (98-107) L 04/22/17 07:15 Carbon Dioxide 37 mmol/L (21-32) H 04/22/17 07:15 Anion Gap 8 (8-16) 04/22/17 07:15 BUN 53 mg/dL (7-18) H 04/22/17 07:15 Creatinine 1.5 mg/dL (0.55-1.02) H 04/22/17 07:15 Creat Clearance w eGFR 32.66 (>60) 04/21/17 08:11 Calcium 8.9 mg/dL (8.5-10.1) 04/22/17 07:15 Total Bilirubin 0.4 mg/dL (0.2-1.0) 04/21/17 08:11 AST 14 U/L (15-37) L D 04/21/17 08:11 ALT 34 U/L (12-78) 04/21/17 08:11 Alkaline Phosphatase 134 U/L (45-117) H 04/21/17 08:11 Total Protein 6.5 g/dl (6.4-8.2) 04/21/17 08:11 Albumin 3.1 g/dl (3.4-5.0) L 04/21/17 08:11 Microbiology 04/21/17 13:59 Blood Culture - Preliminary Blood - Peripheral Venous NO GROWTH OBTAINED AFTER 24 HOURS, INCUBATION TO CONTINUE FOR 4 DAYS. 04/21/17 13:59 Blood Culture - Preliminary Blood - Peripheral Venous NO GROWTH OBTAINED AFTER 24 HOURS, INCUBATION TO CONTINUE FOR 4 DAYS. 04/19/17 22:15 Blood Culture - Preliminary Blood - Peripheral Venous Staphylococcus Coagulase Neg 04/19/17 22:15 Blood Culture - Preliminary Blood - Peripheral Venous NO GROWTH OBTAINED AFTER 48 HOURS, INCUBATION TO CONTINUE FOR 3 DAYS. 04/21/17 07:20 Legionella Antigen - Final Urine For Antigen Detection Streptococcus pneumoniae Antigen (M - Final ASSESSMENT AND PLAN: 61 yo F with PMHx of morbid obesity, Diastolic HF, COPD, suspected DIRK, NIDDM, HTN, HLD, schizophrenia/bipolar disorder, frequent recent admissions with hypoxic/hypercapnic respiratory failure requiring Bipap/Intubation, last discharged on 04/03/2017 on home oxygen, oral steroid taper and lasix reports was doing well since her discharge (states is on Prednisone 30 mg currently) admitted with recurrent Acute hypoxic/hypercapneic respiratory failure, Diastolic HF exacerbation and Mild COPD 1. Acute hyopxic/hypercapnic respiratory failure- due to diastolic CHF exacerbation vs COPD vs PNA. mental status is improved. saturating 94% on RA. will transition medrol to prednisone po. cont lasix po BID, however notice increase in weght but may be due to different weight scales as now on different floor. convert cefipime to ceftin as unable to obtain IV. cpap at night. pulm and ID on board 2. + bacteremia-contamination 3. HTN-controlled. cont current management 4. Iron def anemia- Hgb slightly trending down. no signs of bleeding. cont iron supplements. no indication for transfusion 5. Hyperglycemia- a1c 6.2, likely steroid induced. increase levemir to 10 units HS. iss.bgm 6. SANTO- improved. cont current management 7. Continuous nicotine dependence- refused nicotine patch. states she has desire to "eventually" quit. states she is cutting back. counseled on risks of continued smoking and worsening pulmonary status 8. Schizophrenia/bipolar disorder- zyprexa 9. Morbid obesity-did not request more food today. started on frequent snacks with improvement. counseled on weight loss and dietary modifications. bariatric referral as outpatient. 10. suspect DIRK, ?OHS 11. DVT ppx- hep sq 12. d/w pt concerns regarding discharge. states she got confused with medications at home but interested in becoming more complaint with medications. discussed possible [facility] or SNF placement which she refuses. verbalizes understanding of risks if does not comply with medications and follow up Visit type - Emergency Visit Emergency Visit: Yes ED Registration Date: 04/13/17 Care time: The patient presented to the Emergency Department on the above date and was hospitalized for further evaluation of their emergent condition. - New Patient This patient is new to me today: No - Critical Care Critical Care patient: No - Discharge Referral Referred to [facility] No
[2017-04-22] MEDS: CEFUROXIME AXETIL 500 MG TABLET PO SCH ×2 (14:37→22:18)
[2017-04-22] MEDS: oxyCODONE HCL 5 MG TABLET PO PRN ×2 (15:20→22:17)
[2017-04-22] MEDS ORDERED: INSULIN (NOVOLOG) ASPART 100 UNITS/ML 10ML VIAL SQ ONE (22:14)
[2017-04-22] MEDS: INSULIN DETEMIR 100 UNITS/ML MDV SQ SCH (22:16)
[2017-04-22] MEDS: ATORVASTATIN CA 40 MG TABLET (FP) PO SCH (22:17)
[2017-04-23 00:24] LABS: ANION GAP 9 (8-16); BLOOD UREA NITROGEN 55 mg/dL (7-18); CALCIUM 8.2 mg/dL (8.5-10.1); CHLORIDE 90 mmol/L (98-107); CO2 38 mmol/L (21-32); CREATININE 1.8 mg/dL (0.55-1.02); SODIUM 137 mmol/L (136-145)
[2017-04-23 00:51] LABS: GLUCOSE,RANDOM 372 mg/dL (74-106)
[2017-04-23] MEDS: FUROSEMIDE 40 MG TABLET (FP) PO SCH ×2 (06:59→14:40)
[2017-04-23] MEDS: HEPARIN NA (PORCINE) 5,000 UNITS/ML 1ML VIAL SQ SCH ×3 (06:59→22:35)
[2017-04-23] MEDS: oxyCODONE HCL 5 MG TABLET PO PRN ×3 (07:00→22:36)
[2017-04-23] MEDS: INSULIN SLIDING SCALE (NOVOLOG) 1 VIAL SQ SCH ×4 (07:00→22:34)
[2017-04-23] MEDS: hydrALAZINE HCL 50 MG TABLET (FP) PO SCH ×3 (07:00→22:35)
[2017-04-23 08:04] LABS: HEMATOCRIT 25.1 % (32.4-45.2); HEMOGLOBIN 7.6 GM/dL (10.7-15.3); MCH 23.5 pg (25.7-33.7); MCHC 30.4 g/dl (32.0-36.0); MEAN CELL VOLUME 77.5 fl (80-96); MEAN PLT VOLUME 7.4 fl (7.5-11.1); PLATELET COUNT 156 K/MM3 (134-434); RBC 3.24 M/mm3 (3.60-5.2); RDW 20.3 % (11.6-15.6); WHITE BLOOD COUNT 7.9 K/mm3 (4.0-10.0)
[2017-04-23 08:17] LABS: ANION GAP 5 (8-16); BLOOD UREA NITROGEN 49 mg/dL (7-18); CALCIUM 8.4 mg/dL (8.5-10.1); CHLORIDE 93 mmol/L (98-107); CO2 42 mmol/L (21-32); CREATININE 1.4 mg/dL (0.55-1.02); GLUCOSE,RANDOM 134 mg/dL (74-106); POTASSIUM 3.6 mmol/L (3.5-5.1); SODIUM 140 mmol/L (136-145)
[2017-04-23] MEDS ORDERED: PT OWN MED DRAWER 7, Y5N ONE (09:20)
[2017-04-23] MEDS: CEFUROXIME AXETIL 500 MG TABLET PO SCH ×2 (09:25→22:37)
[2017-04-23] MEDS: ASPIRIN COATED 81 MG TABLET.EC PO SCH (09:25)
[2017-04-23] MEDS: FERROUS SO4 325 MG TABLET (FP) PO SCH (09:25)
[2017-04-23] MEDS: LISINOPRIL 5 MG TABLET (FP) PO SCH (09:25)
[2017-04-23] MEDS: amLODIPine BESYLATE 10 MG TABLET (FP) PO SCH (09:25)
[2017-04-23] MEDS: ESCITALOPRAM OXALATE 20 MG TABLET (FP) PO SCH (09:25)
[2017-04-23] MEDS: OLANZapine 10 MG TABLET PO SCH ×2 (09:25→22:36)
[2017-04-23] MEDS: CARVEDILOL 12.5 MG TABLET (FP) PO SCH ×2 (09:25→22:36)
[2017-04-23] MEDS: predniSONE 20 MG TABLET (UD) PO SCH (09:25)
[2017-04-23] MEDS ORDERED: ALPRAZolam 0.25 MG TABLET PO ONE (11:12)
[2017-04-23] MEDS: ACETAMINOPHEN 325 MG TABLET (FP) PO PRN (11:41)
--- NOTE | 2017-04-23 12:34 | PN ---
Progress Note (short form) - Note Progress Note: PULMONARY SUBJECTIVE IMPROVEMENT ASKING FOR PAIN MEDS VSS/AFEBRILE AWAKE/ALERT ANICTERIC DIMINISHED DIFFUSE BREATH SOUNDS S1S2 OBESE SOFT NONTENDER LESS EDEMA LOWER EXT LABS/MEDS/NOTES/IMAGES/MICRO REVIEWED Acute on Chronic Hypoxic and Hypercapneic Respiratory Failure Acute COPD Exacerbation Acute on Chronic Diastolic Heart Failure Pneumonia HTN DM Schizophrenia Bipolar Disorder Needs home o2/Nippv at night Patient's underlying psycho-social issues will likely hinder her from using home o2/NIPPV effectively - medrol changed to prednisone - inhaled bronchodilators standing and PRN - O2 to keep Spo2 88-92% - BiPAP at night and PRN during day - lasix - monitor urine output, creatinine - DVT prophylaxis - daily wts - antibiotics as per ID - smoking cessation is essential Rojas RACHEL MD
--- NOTE | 2017-04-23 14:27 | PN ---
Progress Note (short form) - Note Progress Note: asymptomatic. feels better, leg pain improved. denies Cp, SOB, fevr, chills, N/V /C/D Current Medications Generic Name Dose Route Start Last Admin Trade Name Freq PRN Reason Stop Dose Admin Acetaminophen 650 mg 04/21/17 21:46 04/22/17 14:36 Tylenol - PO 650 mg Q4H PRN Administration FEVER OR PAIN Acetaminophen 325 mg 04/22/17 14:42 04/23/17 11:41 Tylenol - PO 04/25/17 14:41 325 mg Q4H PRN Administration PAIN Albuterol Sulfate 1 amp 04/21/17 11:01 Ventolin 0.083% Nebulizer Soln - NEB Q1H PRN SHORT OF BREATH/WHEEZING Albuterol/Ipratropium 1 amp 04/21/17 11:44 04/21/17 23:35 Duoneb - NEB 1 amp Q6H PRN Administration SHORT OF BREATH/WHEEZING Amlodipine Besylate 10 mg 04/21/17 10:00 04/23/17 09:25 Norvasc - PO 10 mg DAILY JOSLYN Administration Aspirin 81 mg 04/21/17 10:00 04/23/17 09:25 Ecotrin - PO 81 mg DAILY JOSLYN Administration Atorvastatin Calcium 40 mg 04/21/17 22:00 04/22/17 22:17 Lipitor - PO 40 mg HS JOSLYN Administration Carvedilol 12.5 mg 04/21/17 10:00 04/23/17 09:25 Coreg - PO 12.5 mg BID JOSLYN Administration Cefuroxime Axetil 500 mg 04/22/17 14:00 04/23/17 09:25 Ceftin - PO 500 mg BID JOSLYN Administration Escitalopram Oxalate 20 mg 04/21/17 10:00 04/23/17 09:25 Lexapro - PO 20 mg DAILY JOSLYN Administration Ferrous Sulfate 325 mg 04/21/17 10:00 04/23/17 09:25 Feosol - PO 325 mg DAILY JOSLYN Administration Furosemide 40 mg 04/21/17 06:00 04/23/17 06:59 Lasix - PO 40 mg BIDLASIX JOSLYN Administration Guaifenesin 10 ml 04/20/17 23:35 Robitussin - PO Q6H PRN COUGH Heparin Sodium (Porcine) 5,000 unit 04/21/17 06:00 04/23/17 06:59 Heparin - SQ 5,000 unit TID JOSLYN Administration Hydralazine HCl 50 mg 04/21/17 06:00 04/23/17 07:00 Apresoline - PO 50 mg TID JOSLYN Administration Insulin Aspart 1 vial 04/21/17 07:00 04/23/17 11:45 Novolog Vial Sliding Scale - SQ 2 units ACHS JOSLYN Administration Protocol Insulin Detemir 10 units 04/22/17 13:47 04/22/17 22:16 Levemir Vial SQ 10 units HS JOSLYN Administration Lisinopril 5 mg 04/21/17 10:00 04/23/17 09:25 Prinivil PO 5 mg DAILY JOSLYN Administration Olanzapine 10 mg 04/21/17 10:00 04/23/17 09:25 Zyprexa - PO 10 mg BID JOSLYN Administration Oxycodone HCl 5 mg 04/22/17 14:42 04/23/17 11:41 Roxicodone - PO 5 mg Q4H PRN Administration PAIN Prednisone 40 mg 04/22/17 11:15 04/23/17 09:25 Deltasone - PO 40 mg DAILY JOSLYN Administration Last Vital Signs Temp Pulse Resp BP Pulse Ox 98.1 F 72 20 136/88 94 L 04/23/17 09:04 04/23/17 11:10 04/23/17 09:04 04/23/17 09:04 04/23/17 11:10 Intake & Output 04/20/17 04/21/17 04/22/17 04/23/17 23:59 23:59 23:59 23:59 Intake Total 600 2550 1100 100 Balance 600 2550 1100 100 Weight 241 lb 8 oz 262 lb 8 oz 262 lb 2 oz 256 lb 3 oz General NAD, alert CV S1 S2 Lungs no wheezing, decreased breath sounds bases Abdomen soft NT/ND Extremities 2+ pitting edema B/L LE CBCD WBC 7.9 K/mm3 (4.0-10.0) 04/23/17 07:30 RBC 3.24 M/mm3 (3.60-5.2) L 04/23/17 07:30 Hgb 7.6 GM/dL (10.7-15.3) L 04/23/17 07:30 Hct 25.1 % (32.4-45.2) L 04/23/17 07:30 MCV 77.5 fl (80-96) L 04/23/17 07:30 MCHC 30.4 g/dl (32.0-36.0) L 04/23/17 07:30 RDW 20.3 % (11.6-15.6) H 04/23/17 07:30 Plt Count 156 K/MM3 (134-434) 04/23/17 07:30 MPV 7.4 fl (7.5-11.1) L 04/23/17 07:30 CMP Sodium 140 mmol/L (136-145) 04/23/17 07:30 Potassium 3.6 mmol/L (3.5-5.1) 04/23/17 07:30 Chloride 93 mmol/L (98-107) L 04/23/17 07:30 Carbon Dioxide 42 mmol/L (21-32) H 04/23/17 07:30 Anion Gap 5 (8-16) L 04/23/17 07:30 BUN 49 mg/dL (7-18) H 04/23/17 07:30 Creatinine 1.4 mg/dL (0.55-1.02) H D 04/23/17 07:30 Creat Clearance w eGFR 32.66 (>60) 04/21/17 08:11 Calcium 8.4 mg/dL (8.5-10.1) L 04/23/17 07:30 Total Bilirubin 0.4 mg/dL (0.2-1.0) 04/21/17 08:11 AST 14 U/L (15-37) L D 04/21/17 08:11 ALT 34 U/L (12-78) 04/21/17 08:11 Alkaline Phosphatase 134 U/L (45-117) H 04/21/17 08:11 Total Protein 6.5 g/dl (6.4-8.2) 04/21/17 08:11 Albumin 3.1 g/dl (3.4-5.0) L 04/21/17 08:11 ASSESSMENT AND PLAN: 61 yo F with PMHx of morbid obesity, Diastolic HF, COPD, suspected DIRK, NIDDM, HTN, HLD, schizophrenia/bipolar disorder, frequent recent admissions with hypoxic/hypercapnic respiratory failure requiring Bipap/Intubation, last discharged on 04/03/2017 on home oxygen, oral steroid taper and lasix reports was doing well since her discharge (states is on Prednisone 30 mg currently) admitted with recurrent Acute hypoxic/hypercapneic respiratory failure, Diastolic HF exacerbation and Mild COPD 1. Acute hyopxic/hypercapnic respiratory failure- due to diastolic CHF exacerbation vs COPD vs PNA. mental status is improved. saturating well on RA. will d/c medrol and start po prednsione taper. lasix po BID, Ceftin day 5. will d/w ID about duration. would benefit from triology device on discharge however pt is active smoker and contraindicated. cpap at night. pulm and ID on board 2. + bacteremia-contamination 3. HTN-controlled. cont current management 4. Iron def anemia- Hgb slightly trending down. no signs of bleeding. cont iron supplements. no indication for transfusion 5. Hyperglycemia- a1c 6.2, likely steroid induced. cont levemir 10 units HS. iss.bgm 6. SANTO- improved. cont current management 7. Continuous nicotine dependence- refused nicotine patch. states she has desire to "eventually" quit. states she is cutting back. counseled on risks of continued smoking and worsening pulmonary status 8. Schizophrenia/bipolar disorder- zyprexa 9. Morbid obesity- counseled on weight loss and dietary modifications. bariatric referral as outpatient. explained can not eat togolese or fast food that is heavy in salt 10. suspect DIKR, ?OHS 11. DVT ppx- hep sq 12. d/w pt concerns regarding discharge. committed to being more pro-active in her health care and following medications. requesting to go home. spoke with Beatris at [facility] about her discharge. agree that she would benefit from placement however understands pt is refusing and that we can not force her to leave as she is competent to make her own decision. agree will d/c home tomorrow. VNS set up but knows will likely not be able to go till 04/25/17. she will see pt on . spoke [facility] pt in detail about compliance and follow up. verbalized agreement with plan Visit type - Emergency Visit Emergency Visit: Yes ED Registration Date: 04/13/17 Care time: The patient presented to the Emergency Department on the above date and was hospitalized for further evaluation of their emergent condition. - New Patient This patient is new to me today: No - Critical Care Critical Care patient: No - Discharge Referral Referred to [facility] No
[2017-04-23 18:26] LABS: ANION GAP 11 (8-16); BLOOD UREA NITROGEN 49 mg/dL (7-18); CALCIUM 8.6 mg/dL (8.5-10.1); CHLORIDE 88 mmol/L (98-107); CO2 38 mmol/L (21-32); POTASSIUM 3.9 mmol/L (3.5-5.1); SODIUM 137 mmol/L (136-145)
[2017-04-23 18:30] LABS: CREATININE 1.7 mg/dL (0.55-1.02)
[2017-04-23 18:37] LABS: GLUCOSE,RANDOM 437 mg/dL (74-106)
[2017-04-23] MEDS: ATORVASTATIN CA 40 MG TABLET (FP) PO SCH (22:35)
[2017-04-23] MEDS: INSULIN DETEMIR 100 UNITS/ML MDV SQ SCH (22:35)
[2017-04-23] MEDS: ALPRAZolam 0.25 MG TABLET PO PRN (22:36)
[2017-04-24] MEDS: INSULIN SLIDING SCALE (NOVOLOG) 1 VIAL SQ SCH ×4 (06:31→21:56)
[2017-04-24] MEDS: HEPARIN NA (PORCINE) 5,000 UNITS/ML 1ML VIAL SQ SCH ×2 (06:31→14:18)
[2017-04-24] MEDS: hydrALAZINE HCL 50 MG TABLET (FP) PO SCH ×3 (06:32→22:01)
[2017-04-24] MEDS: FUROSEMIDE 40 MG TABLET (FP) PO SCH ×2 (06:32→14:18)
[2017-04-24 07:41] LABS: HEMATOCRIT 22.3 % (32.4-45.2); MCH 23.6 pg (25.7-33.7); MCHC 30.1 g/dl (32.0-36.0); MEAN CELL VOLUME 78.3 fl (80-96); MEAN PLT VOLUME 7.3 fl (7.5-11.1); PLATELET COUNT 125 K/MM3 (134-434); RBC 2.84 M/mm3 (3.60-5.2); RDW 20.3 % (11.6-15.6)
[2017-04-24 07:48] LABS: HEMOGLOBIN 6.7 GM/dL (10.7-15.3)
[2017-04-24] MEDS: predniSONE 20 MG TABLET (UD) PO SCH (09:08)
[2017-04-24] MEDS: ESCITALOPRAM OXALATE 20 MG TABLET (FP) PO SCH (09:08)
[2017-04-24] MEDS: CEFUROXIME AXETIL 500 MG TABLET PO SCH ×2 (09:08→21:58)
[2017-04-24] MEDS: amLODIPine BESYLATE 10 MG TABLET (FP) PO SCH (09:08)
[2017-04-24] MEDS: CARVEDILOL 12.5 MG TABLET (FP) PO SCH ×2 (09:08→21:57)
[2017-04-24] MEDS: LISINOPRIL 5 MG TABLET (FP) PO SCH (09:09)
[2017-04-24] MEDS: ASPIRIN COATED 81 MG TABLET.EC PO SCH (09:09)
[2017-04-24] MEDS: FERROUS SO4 325 MG TABLET (FP) PO SCH (09:09)
[2017-04-24] MEDS: OLANZapine 10 MG TABLET PO SCH ×2 (09:09→21:57)
[2017-04-24] MEDS ORDERED: predniSONE 20 MG TABLET (UD) PO SCH (10:47)
--- NOTE | 2017-04-24 10:55 | PN ---
Progress Note (short form) - Note Progress Note: PULMONARY SUBJECTIVE IMPROVEMENT DRESSED AND READY TO GO HOME VSS/AFEBRILE AWAKE/ALERT ANICTERIC DIMINISHED DIFFUSE BREATH SOUNDS S1S2 OBESE SOFT NONTENDER LESS EDEMA LOWER EXT LABS/MEDS/NOTES/IMAGES/MICRO REVIEWED HGB 6.7 FROM 7.6 R/O GIB Acute on Chronic Hypoxic and Hypercapneic Respiratory Failure Acute COPD Exacerbation Acute on Chronic Diastolic Heart Failure Pneumonia HTN DM Schizophrenia Bipolar Disorder Needs home o2/Nippv at night Patient's underlying psycho-social issues will likely hinder her from using home o2/NIPPV effectively - prednisone decreased to 20 mg - stool guiac - needs prbc's transfused - ? GI eval - consider holding SQ heparin until workup complete - inhaled bronchodilators standing and PRN - O2 to keep Spo2 88-92% - BiPAP at night and PRN during day - lasix - monitor urine output, creatinine - DVT prophylaxis - daily wts - antibiotics as per ID - smoking cessation is essential Rojas RACHEL MD
--- NOTE | 2017-04-24 11:52 | PN ---
Progress Note, Physician History of Present Illness: Awake, alert Seated in bed Breathing non-labored Denies chest pain/ dyspnea/ cough No c/o fever/ chills Afebrile - Current Medication List Current Medications: Active Medications Acetaminophen (Tylenol -) 650 mg PO Q4H PRN PRN Reason: FEVER OR PAIN Last Admin: 04/22/17 14:36 Dose: 650 mg Acetaminophen (Tylenol -) 325 mg PO Q4H PRN PRN Reason: PAIN Stop: 04/25/17 14:41 Last Admin: 04/23/17 11:41 Dose: 325 mg Albuterol Sulfate (Ventolin 0.083% Nebulizer Soln -) 1 amp NEB Q1H PRN PRN Reason: SHORT OF BREATH/WHEEZING Last Admin: 04/23/17 22:30 Dose: 1 amp Albuterol/Ipratropium (Duoneb -) 1 amp NEB Q6H PRN PRN Reason: SHORT OF BREATH/WHEEZING Last Admin: 04/21/17 23:35 Dose: 1 amp Alprazolam (Xanax -) 0.25 mg PO Q6H PRN PRN Reason: ANXIETY Last Admin: 04/23/17 22:36 Dose: 0.25 mg Amlodipine Besylate (Norvasc -) 10 mg PO DAILY [facility] Last Admin: 04/24/17 09:08 Dose: 10 mg Aspirin (Ecotrin -) 81 mg PO DAILY [facility] Last Admin: 04/24/17 09:09 Dose: 81 mg Atorvastatin Calcium (Lipitor -) 40 mg PO HS [facility] Last Admin: 04/23/17 22:35 Dose: 40 mg Carvedilol (Coreg -) 12.5 mg PO BID [facility] Last Admin: 04/24/17 09:08 Dose: 12.5 mg Cefuroxime Axetil (Ceftin -) 500 mg PO BID [facility] Last Admin: 04/24/17 09:08 Dose: 500 mg Escitalopram Oxalate (Lexapro -) 20 mg PO DAILY [facility] Last Admin: 04/24/17 09:08 Dose: 20 mg Ferrous Sulfate (Feosol -) 325 mg PO DAILY [facility] Last Admin: 04/24/17 09:09 Dose: 325 mg Furosemide (Lasix -) 40 mg PO BIDLASIX [facility] Last Admin: 04/24/17 06:32 Dose: 40 mg Guaifenesin (Robitussin -) 10 ml PO Q6H PRN PRN Reason: COUGH Heparin Sodium (Porcine) (Heparin -) 5,000 unit SQ TID [facility] Last Admin: 04/24/17 06:31 Dose: 5,000 unit Hydralazine HCl (Apresoline -) 50 mg PO TID [facility] Last Admin: 04/24/17 06:32 Dose: 50 mg Insulin Aspart (Novolog Vial Sliding Scale -) 1 vial SQ ACHS [facility] PRN Reason: Protocol Last Admin: 04/24/17 06:31 Dose: 2 units Insulin Detemir (Levemir Vial) 10 units SQ HS [facility] Last Admin: 04/23/17 22:35 Dose: 10 units Lisinopril (Prinivil) 5 mg PO DAILY [facility] Last Admin: 04/24/17 09:09 Dose: 5 mg Olanzapine (Zyprexa -) 10 mg PO BID [facility] Last Admin: 04/24/17 09:09 Dose: 10 mg Oxycodone HCl (Roxicodone -) 5 mg PO Q4H PRN PRN Reason: PAIN Last Admin: 04/23/17 22:36 Dose: 5 mg Prednisone (Deltasone -) 20 mg PO DAILY [facility] - Objective Vital Signs: Vital Signs Temperature 99 F 04/24/17 05:55 Pulse Rate 92 H 04/24/17 05:55 Respiratory Rate 20 04/24/17 05:55 Blood Pressure 139/66 04/24/17 05:55 O2 Sat by Pulse Oximetry (%) 97 04/24/17 02:35 Constitutional: Yes: Obese Eyes: Yes: Conjunctiva Clear Cardiovascular: Yes: Regular Rate and Rhythm, S1, S2 Respiratory: Yes: CTA Bilaterally Gastrointestinal: Yes: Normal Bowel Sounds, Soft. No: Tenderness Edema: Yes Edema: LLE: 2+, RLE: 2+ Labs: CBC, BMP 04/24/17 06:00 04/23/17 07:45 INR, PTT INR 1.04 (0.82-1.09) 04/13/17 15:00 Assessment/Plan RUL,RLL pneumonia +BC SCN= contaminant PCN allergy Continue po ceftin
--- NOTE | 2017-04-24 14:26 | PN ---
Progress Note (short form) - Note Progress Note: asymptomatic. feels better, leg pain improved. adamant about going home. denies Cp, SOB, fevr, chills, N/V/C/D does not recall if she had colonscopy in the past but refusing it at this time. Current Medications Generic Name Dose Route Start Last Admin Trade Name Freq PRN Reason Stop Dose Admin Acetaminophen 650 mg 04/21/17 21:46 04/22/17 14:36 Tylenol - PO 650 mg Q4H PRN Administration FEVER OR PAIN Acetaminophen 325 mg 04/22/17 14:42 04/23/17 11:41 Tylenol - PO 04/25/17 14:41 325 mg Q4H PRN Administration PAIN Albuterol Sulfate 1 amp 04/21/17 11:01 04/23/17 22:30 Ventolin 0.083% Nebulizer Soln - NEB 1 amp Q1H PRN Administration SHORT OF BREATH/WHEEZING Albuterol/Ipratropium 1 amp 04/21/17 11:44 04/21/17 23:35 Duoneb - NEB 1 amp Q6H PRN Administration SHORT OF BREATH/WHEEZING Alprazolam 0.25 mg 04/23/17 14:32 04/23/17 22:36 Xanax - PO 0.25 mg Q6H PRN Administration ANXIETY Amlodipine Besylate 10 mg 04/21/17 10:00 04/24/17 09:08 Norvasc - PO 10 mg DAILY JOSLYN Administration Aspirin 81 mg 04/21/17 10:00 04/24/17 09:09 Ecotrin - PO 81 mg DAILY JOSLYN Administration Atorvastatin Calcium 40 mg 04/21/17 22:00 04/23/17 22:35 Lipitor - PO 40 mg HS JOSLYN Administration Carvedilol 12.5 mg 04/21/17 10:00 04/24/17 09:08 Coreg - PO 12.5 mg BID JOSLYN Administration Cefuroxime Axetil 500 mg 04/22/17 14:00 04/24/17 09:08 Ceftin - PO 500 mg BID JOSLYN Administration Escitalopram Oxalate 20 mg 04/21/17 10:00 04/24/17 09:08 Lexapro - PO 20 mg DAILY JOSLYN Administration Ferrous Sulfate 325 mg 04/21/17 10:00 04/24/17 09:09 Feosol - PO 325 mg DAILY JOSLYN Administration Furosemide 40 mg 04/21/17 06:00 04/24/17 06:32 Lasix - PO 40 mg BIDLASIX JOSLYN Administration Guaifenesin 10 ml 04/20/17 23:35 Robitussin - PO Q6H PRN COUGH Heparin Sodium (Porcine) 5,000 unit 04/21/17 06:00 04/24/17 06:31 Heparin - SQ 5,000 unit TID JOSLYN Administration Hydralazine HCl 50 mg 04/21/17 06:00 04/24/17 06:32 Apresoline - PO 50 mg TID JOSLYN Administration Insulin Aspart 1 vial 04/21/17 07:00 04/24/17 11:51 Novolog Vial Sliding Scale - SQ 6 units ACHS JOSLYN Administration Protocol Insulin Detemir 10 units 04/22/17 13:47 04/23/17 22:35 Levemir Vial SQ 10 units HS [facility] Administration Lisinopril 5 mg 04/21/17 10:00 04/24/17 09:09 Prinivil PO 5 mg DAILY [facility] Administration Olanzapine 10 mg 04/21/17 10:00 04/24/17 09:09 Zyprexa - PO 10 mg BID [facility] Administration Oxycodone HCl 5 mg 04/22/17 14:42 04/23/17 22:36 Roxicodone - PO 5 mg Q4H PRN Administration PAIN Prednisone 20 mg 04/24/17 10:47 Deltasone - PO DAILY [facility] Last Vital Signs Temp Pulse Resp BP Pulse Ox 98.6 F 80 18 110/50 97 04/24/17 10:00 04/24/17 10:00 04/24/17 10:00 04/24/17 10:00 04/24/17 02:35 General NAD, alert CV S1 S2 Lungs no wheezing, decreased breath sounds bases Abdomen soft NT/ND Extremities 2+ pitting edema B/L LE CBCD WBC 6.0 K/mm3 (4.0-10.0) 04/24/17 06:00 RBC 2.84 M/mm3 (3.60-5.2) L 04/24/17 06:00 Hgb 6.7 GM/dL (10.7-15.3) L* D 04/24/17 06:00 Hct 22.3 % (32.4-45.2) L 04/24/17 06:00 MCV 78.3 fl (80-96) L 04/24/17 06:00 MCHC 30.1 g/dl (32.0-36.0) L 04/24/17 06:00 RDW 20.3 % (11.6-15.6) H 04/24/17 06:00 Plt Count 125 K/MM3 (134-434) L 04/24/17 06:00 MPV 7.3 fl (7.5-11.1) L 04/24/17 06:00 ASSESSMENT AND PLAN: 61 yo F with PMHx of morbid obesity, Diastolic HF, COPD, suspected DIRK, NIDDM, HTN, HLD, schizophrenia/bipolar disorder, frequent recent admissions with hypoxic/hypercapnic respiratory failure requiring Bipap/Intubation, last discharged on 04/03/2017 on home oxygen, oral steroid taper and lasix reports was doing well since her discharge (states is on Prednisone 30 mg currently) admitted with recurrent Acute hypoxic/hypercapneic respiratory failure, Diastolic HF exacerbation and Mild COPD 1. Acute hyopxic/hypercapnic respiratory failure- due to diastolic CHF exacerbation vs COPD vs PNA. mental status is improved. saturating well on RA. would likely benefit from home O2 therapy, however pt is active smoker and refusing to quit. also will likely not comply correctly with oxygen and NIPPV device. on prednisone taper (20mg today), ceftin day 6. will complete 10 day course. lasix po BID. pulm and ID on board 2. + bacteremia-contamination 3. HTN-controlled. cont current management 4. Iron def anemia- Hgb trending down. will txn 1 unit PRBC. discussed with pt about GI evaluation. refused colonoscopy and any other workup. just wants to go home. no signs of bleeding. cont iron supplements. no indication for transfusion 5. Hyperglycemia- a1c 6.2, likely steroid induced. having high insulin coverage requirements. will likely drop as steroids are tapered off. pt refuses to use insulin at home unless someone can do it for her. will start januvia 100mg ( Crcl60). will d/c levemir. cont iss.bgm 6. SANTO- improved. cont current management 7. Continuous nicotine dependence- refused nicotine patch. states she has desire to "eventually" quit. states she is cutting back. counseled on risks of continued smoking and worsening pulmonary status 8. Schizophrenia/bipolar disorder- zyprexa 9. Morbid obesity- counseled on weight loss and dietary modifications. 10. suspect DIRK, ?OHS 11. DVT ppx- hold hep sq 12. pt refusing GI workup for anemia. wants to go home. should stay and monitor sugars off levemir as starting oral hypoglycemics. spoke with CM will set up VNS for home to arrive tomorrow. worried about complaince and pt being able to manage on her own. Visit type - Emergency Visit Emergency Visit: Yes ED Registration Date: 04/13/17 Care time: The patient presented to the Emergency Department on the above date and was hospitalized for further evaluation of their emergent condition. - New Patient This patient is new to me today: No - Critical Care Critical Care patient: No - Discharge Referral Referred to [facility] No
[2017-04-24] MEDS ORDERED: sitaGLIPtin PHOSPHATE 100 MG TABLET (FP) PO ONE ×2 (14:41→17:30)
[2017-04-24] MEDS: oxyCODONE HCL 5 MG TABLET PO PRN (18:31)
[2017-04-24] MEDS: ACETAMINOPHEN 325 MG TABLET (FP) PO PRN (18:31)
--- NOTE | 2017-04-24 18:43 | HOSP ---
Subjective - Review of Symptoms Events since last encounter: patient called the office from her room, and requested to be discharged. I explained to the patient that her sugar wsa > 400 in am and could not be disharged due to the need for better glucose control with adjustment of her insulin regimen. risk of DKA and was explained as well. she understands, the risks if she leaves against medical advise. she received 10 units of levemir last night , simin give 14 tonight. case was d/w dr. trinh Physical Examination Vital Signs: Vital Signs Temperature 98.7 F 04/24/17 14:29 Pulse Rate 72 04/24/17 14:29 Respiratory Rate 18 04/24/17 14:29 Blood Pressure 132/66 04/24/17 14:29 O2 Sat by Pulse Oximetry (%) 94 L 04/24/17 10:35 Labs: CBC, BMP 04/24/17 06:00 04/23/17 07:45
[2017-04-24 19:59] LABS: HEMATOCRIT 28.4 % (32.4-45.2); HEMOGLOBIN 8.6 GM/dL (10.7-15.3); MCH 24.4 pg (25.7-33.7); MCHC 30.4 g/dl (32.0-36.0); MEAN CELL VOLUME 80.5 fl (80-96); MEAN PLT VOLUME 8.1 fl (7.5-11.1); PLATELET COUNT 138 K/MM3 (134-434); RBC 3.53 M/mm3 (3.60-5.2); RDW 20.7 % (11.6-15.6); WHITE BLOOD COUNT 6.2 K/mm3 (4.0-10.0)
[2017-04-24 20:03] LABS: ADD RBC MORPHOLOGY YES
[2017-04-24 20:42] LABS: ANISOCYTOSIS 2+; MACROCYTOSIS 1+; OVALOCYTE RARE
[2017-04-24] MEDS: ALPRAZolam 0.25 MG TABLET PO PRN (21:57)
[2017-04-24] MEDS: ATORVASTATIN CA 40 MG TABLET (FP) PO SCH (21:57)
[2017-04-24] MEDS ORDERED: INSULIN DETEMIR 100 UNITS/ML MDV SQ SCH (22:00)
[2017-04-25] MEDS: ALPRAZolam 0.25 MG TABLET PO PRN (06:33)
[2017-04-25] MEDS: oxyCODONE HCL 5 MG TABLET PO PRN (06:33)
[2017-04-25] MEDS: hydrALAZINE HCL 50 MG TABLET (FP) PO SCH (06:33)
[2017-04-25] MEDS: FUROSEMIDE 40 MG TABLET (FP) PO SCH (06:33)
[2017-04-25] MEDS: INSULIN SLIDING SCALE (NOVOLOG) 1 VIAL SQ SCH ×2 (06:34→11:33)
[2017-04-25] MEDS: ACETAMINOPHEN 325 MG TABLET (FP) PO PRN (06:34)
[2017-04-25] MEDS ORDERED: sitaGLIPtin PHOSPHATE 100 MG TABLET (FP) PO SCH (07:00)
[2017-04-25] MEDS ORDERED: PT OWN MED DRAWER 7, Y5N ONE (09:27)
[2017-04-25] MEDS: amLODIPine BESYLATE 10 MG TABLET (FP) PO SCH (09:33)
[2017-04-25] MEDS: ESCITALOPRAM OXALATE 20 MG TABLET (FP) PO SCH (09:33)
[2017-04-25] MEDS: CARVEDILOL 12.5 MG TABLET (FP) PO SCH (09:33)
[2017-04-25] MEDS: ASPIRIN COATED 81 MG TABLET.EC PO SCH (09:33)
[2017-04-25] MEDS: LISINOPRIL 5 MG TABLET (FP) PO SCH (09:34)
[2017-04-25] MEDS: FERROUS SO4 325 MG TABLET (FP) PO SCH (09:34)
[2017-04-25] MEDS: CEFUROXIME AXETIL 500 MG TABLET PO SCH (09:34)
[2017-04-25] MEDS: OLANZapine 10 MG TABLET PO SCH (09:34)
--- NOTE | 2017-04-25 13:21 | PN ---
Progress Note (short form) - Note Progress Note: Refused NIPPV use overnight. NAD on 3 L NC O2. Wants to go home. Intake & Output 04/22/17 04/23/17 04/24/17 04/25/17 23:59 23:59 23:59 23:59 Intake Total 1100 1800 1150 300 Balance 1100 1800 1150 300 Weight 262 lb 2 oz 256 lb 3 oz 251 lb 14.4 oz Last Vital Signs Temp Pulse Resp BP Pulse Ox 98.7 F 78 18 136/61 99 04/24/17 14:29 04/25/17 10:16 04/25/17 10:00 04/25/17 10:00 04/25/17 10:41 Active Medications Acetaminophen (Tylenol -) 650 mg PO Q4H PRN PRN Reason: FEVER OR PAIN Last Admin: 04/22/17 14:36 Dose: 650 mg Acetaminophen (Tylenol -) 325 mg PO Q4H PRN PRN Reason: PAIN Stop: 04/25/17 14:41 Last Admin: 04/25/17 06:34 Dose: 325 mg Albuterol Sulfate (Ventolin 0.083% Nebulizer Soln -) 1 amp NEB Q1H PRN PRN Reason: SHORT OF BREATH/WHEEZING Last Admin: 04/23/17 22:30 Dose: 1 amp Albuterol/Ipratropium (Duoneb -) 1 amp NEB Q6H PRN PRN Reason: SHORT OF BREATH/WHEEZING Last Admin: 04/21/17 23:35 Dose: 1 amp Amlodipine Besylate (Norvasc -) 10 mg PO DAILY [facility] Last Admin: 04/25/17 09:33 Dose: 10 mg Aspirin (Ecotrin -) 81 mg PO DAILY [facility] Last Admin: 04/25/17 09:33 Dose: 81 mg Atorvastatin Calcium (Lipitor -) 40 mg PO HS [facility] Last Admin: 04/24/17 21:57 Dose: 40 mg Carvedilol (Coreg -) 12.5 mg PO BID [facility] Last Admin: 04/25/17 09:33 Dose: 12.5 mg Cefuroxime Axetil (Ceftin -) 500 mg PO BID [facility] Last Admin: 04/25/17 09:34 Dose: 500 mg Escitalopram Oxalate (Lexapro -) 20 mg PO DAILY [facility] Last Admin: 04/25/17 09:33 Dose: 20 mg Ferrous Sulfate (Feosol -) 325 mg PO DAILY [facility] Last Admin: 04/25/17 09:34 Dose: 325 mg Furosemide (Lasix -) 40 mg PO BIDLASIX [facility] Last Admin: 04/25/17 06:33 Dose: 40 mg Guaifenesin (Robitussin -) 10 ml PO Q6H PRN PRN Reason: COUGH Hydralazine HCl (Apresoline -) 50 mg PO TID [facility] Last Admin: 04/25/17 06:33 Dose: 50 mg Insulin Aspart (Novolog Vial Sliding Scale -) 1 vial SQ ACHS [facility] PRN Reason: Protocol Last Admin: 04/25/17 11:33 Dose: 2 units Insulin Detemir (Levemir Vial) 14 units SQ HS [facility] Last Admin: 04/24/17 21:56 Dose: 14 unit Lisinopril (Prinivil) 5 mg PO DAILY [facility] Last Admin: 04/25/17 09:34 Dose: 5 mg Olanzapine (Zyprexa -) 10 mg PO BID [facility] Last Admin: 04/25/17 09:34 Dose: 10 mg Oxycodone HCl (Roxicodone -) 5 mg PO Q4H PRN PRN Reason: PAIN Last Admin: 04/25/17 06:33 Dose: 5 mg Prednisone (Deltasone -) 20 mg PO DAILY [facility] Last Admin: 04/25/17 09:33 Dose: 20 mg Sitagliptin Phosphate (Januvia -) 100 mg PO DAILY@0700 [facility] Last Admin: 04/25/17 06:33 Dose: 100 mg Constitutional: Yes: NAD Eyes: Yes: WNL HENT: Yes: WNL Neck: Yes: WNL Cardiovascular: Yes: Regular Rate and Rhythm, S1, S2 Respiratory: Yes: Diminished Gastrointestinal: Yes: Normal Bowel Sounds, Soft Extremities: Yes: WNL Edema: Yes Edema: LLE: 3+, RLE: 3+ Labs: Laboratory Results - last 24 hr 04/19/17 04/20/17 04/22/17 11:22 16:32 22:08 WBC RBC Hgb Hct MCV MCH MCHC RDW Plt Count MPV Manual Slide Review Platelet Comment Polychromasia Poikilocytosis Anisocytosis Macrocytosis Ovalocytes POC Glucometer 492 350 442 Blood Type Antibody Screen Crossmatch 04/23/17 04/24/17 04/24/17 16:42 08:55 17:19 WBC RBC Hgb Hct MCV MCH MCHC RDW Plt Count MPV Manual Slide Review Platelet Comment Polychromasia Poikilocytosis Anisocytosis Macrocytosis Ovalocytes POC Glucometer 491 467 Blood Type O POSITIVE Antibody Screen Negative Crossmatch See Detail 04/24/17 04/24/17 04/25/17 18:30 21:54 06:27 WBC 6.2 RBC 3.53 L D Hgb 8.6 L D Hct 28.4 L D MCV 80.5 MCH 24.4 L MCHC 30.4 L RDW 20.7 H Plt Count 138 MPV 8.1 D Manual Slide Review Platelet Comment Rare giant plts Polychromasia 1+ Poikilocytosis 1+ Anisocytosis 2+ Macrocytosis 1+ Ovalocytes Rare POC Glucometer 245 116 Blood Type Antibody Screen Crossmatch 04/25/17 11:32 WBC RBC Hgb Hct MCV MCH MCHC RDW Plt Count MPV Manual Slide Review Platelet Comment Polychromasia Poikilocytosis Anisocytosis Macrocytosis Ovalocytes POC Glucometer 175 Blood Type Antibody Screen Crossmatch Assessment/Plan Problem List - Problems (1) Acute on chronic respiratory failure with hypoxia and hypercapnia Code(s): J96.21 - ACUTE AND CHRONIC RESPIRATORY FAILURE WITH HYPOXIA; J96.22 - ACUTE AND CHRONIC RESPIRATORY FAILURE WITH HYPERCAPNIA (2) COPD exacerbation Code(s): J44.1 - CHRONIC OBSTRUCTIVE PULMONARY DISEASE W (ACUTE) EXACERBATION (3) Acute on chronic diastolic (congestive) heart failure Code(s): I50.33 - ACUTE ON CHRONIC DIASTOLIC (CONGESTIVE) HEART FAILURE (4) Bipolar disorder Code(s): F31.9 - BIPOLAR DISORDER, UNSPECIFIED Qualifiers: Active/Remission status: remission status unspecified Qualified Code(s): F31.9 - Bipolar disorder, unspecified (5) Diabetes mellitus Code(s): E11.9 - TYPE 2 DIABETES MELLITUS WITHOUT COMPLICATIONS Qualifiers: Diabetes mellitus type: type 2 Diabetes mellitus complication status: without complication Diabetes mellitus longterm insulin use: without longterm use Qualified Code(s): E11.9 - Type 2 diabetes mellitus without complications (6) Hypertension Code(s): I10 - ESSENTIAL (PRIMARY) HYPERTENSION Qualifiers: Hypertension type: essential hypertension Qualified Code(s): I10 - Essential (primary) hypertension (7) Schizophrenia Code(s): F20.9 - SCHIZOPHRENIA, UNSPECIFIED Qualifiers: Schizophrenia type: unspecified Qualified Code(s): F20.9 - Schizophrenia, unspecified Assessment/Plan Acute on Chronic Hypoxic and Hypercapneic Respiratory Failure Acute COPD Exacerbation Acute on Chronic Diastolic Heart Failure Pneumonia HTN DM Schizophrenia Bipolar Disorder Prednisone taper Glycemic control O2 for saturation 88% to 92% NIPPV if willing No Pulmonary contraindication for D/C Dr Garcia
--- NOTE | 2017-04-25 13:52 | PN ---
Teaching Attending Note Name of Resident: Raghu Reed ATTENDING PHYSICIAN STATEMENT time of evaluation: 10:00 AM I saw and evaluated the patient. I reviewed the resident's note and discussed the case with the resident. I agree with the resident's findings and plan as documented. SUBJECTIVE: Patient seen and examined. no complaints, doing well, wants to go home. OBJECTIVE: Vital Signs Period Temp Pulse Resp BP Sys/Osei Pulse Ox Last 24 Hr 98.7 F 72-110 18-20 132-140/61-76 95-99 Intake & Output 04/22/17 04/23/17 04/24/17 04/25/17 23:59 23:59 23:59 23:59 Intake Total 1100 1800 1150 300 Balance 1100 1800 1150 300 Weight 262 lb 2 oz 256 lb 3 oz 251 lb 14.4 oz General: sitting in bed in no acute distress Lungs: good air entry bilaterally, no rales or wheezing appreciated. Extremities: no edema CVS:S1S2 regular ASSESSMENT AND PLAN: -Acute hypoxic/hypercapneic respiratory failure -Acute diastolic HF exacerbation -Acute COPD exacerbation -Anemia -IDDM -Morbid obesity -Schizophrenia -bacteremia, contaminant Plan: improved. Non compliant with oxygen on recent discharge. Has been discussed with patient, no ready for smoking cessation currently. Home VNA to stress on compliance and close monitoring. Change to insulin pen. teaching has been provided. lasix 40 mg daily. rapid prednisone taper. resume home meds. patient AAOx3, fully aware of her current medical condition, need to continue medications as directed, dietary compliance, medication compliance and need for follow up.Not ready for smoking cessation currently. D/c home with VNA with close outpatient follow up. DIscussed with patient in detail, all questions answered.
[2017-04-25 14:21] VITALS: BP 120/69; PULSE 79; TEMP 98.1
--- NOTE | 2017-04-25 14:31 | DS ---
Physical Exam: SUBJECTIVE: No problems overnight. Pt feels better today and is eager to go home. OBJECTIVE: Vital Signs Period Temp Pulse Resp BP Sys/Osei Pulse Ox Last 24 Hr 98.1 F 76-110 18-20 120-140/61-76 95-99 PHYSICAL EXAM GENERAL: NAD, alert, sitting at bedside, awake, and fully oriented HEENT: No JVD, sclera anicteric, EOMI PATRICE LUNGS: Trace bibasillar rales. No wheezes or rhonchi. No accessory muscle use. On 3LNC HEART: RRR, S1, S2 without murmur ABDOMEN: Soft, nontender, nondistended, normoactive bowel sounds, no guarding, no hepatosplenomegaly, no masses. EXTREMITIES: 2+ DP pulses, warm, well-perfused, trace edema to ankles today NEUROLOGICAL: Cranial nerves II through XII grossly intact. Normal speech, gait not observed. PSYCH: Normal mood, jovial affect. SKIN: Warm, dry, no rashes or lesions noted LABS Laboratory Results - last 24 hr 04/19/17 04/20/17 04/22/17 11:22 16:32 22:08 WBC RBC Hgb Hct MCV MCH MCHC RDW Plt Count MPV Manual Slide Review Platelet Comment Polychromasia Poikilocytosis Anisocytosis Macrocytosis Ovalocytes POC Glucometer 492 350 442 04/23/17 04/24/17 04/24/17 16:42 17:19 18:30 WBC 6.2 RBC 3.53 L D Hgb 8.6 L D Hct 28.4 L D MCV 80.5 MCH 24.4 L MCHC 30.4 L RDW 20.7 H Plt Count 138 MPV 8.1 D Manual Slide Review Platelet Comment Rare giant plts Polychromasia 1+ Poikilocytosis 1+ Anisocytosis 2+ Macrocytosis 1+ Ovalocytes Rare POC Glucometer 491 467 04/24/17 04/25/17 04/25/17 21:54 06:27 11:32 WBC RBC Hgb Hct MCV MCH MCHC RDW Plt Count MPV Manual Slide Review Platelet Comment Polychromasia Poikilocytosis Anisocytosis Macrocytosis Ovalocytes POC Glucometer 245 116 175 HOSPITAL COURSE: Date of Admission:04/13/17 Date of Discharge: 04/25/17 Pt was admitted on 04/13/17 for SOB and edematous legs reported to Discharge Summary Reason For Visit: CHF; COPD; ACUTE RESPIRATORY FAILURE W/ HYPOXIA Current Active Problems Acute on chronic diastolic (congestive) heart failure (Acute) Acute respiratory failure with hypoxia and hypercapnia (Acute) COPD exacerbation (Acute) Endotracheally intubated (Acute) CHF (congestive heart failure) (Chronic) Condition: Guarded - Instructions Diet, Activity, Other Instructions: You were admitted to the hospital because of your lungs. You were treated for fluid in your lungs as well as pneumonia Your medications have changed. Refer to medication list for changes. FOLLOW-UPS: --Follow up with your primary care doctor THIS week. He needs to check your blood counts as well as kidney function. THIS IS VERY IMPORTANT --You have an appointment with Dr. Del Rio at the [facility] on Monday at 2:30pm; they will call your home number a day before to confirm --The clinic number is [phone]. --Please have them check your blood count with a "CBC" during your visit --Follow up with pulmonary. Contact information has been provided, You should see them THIS week. --Follow-up with Dr. Castillo who is a screening technician due to your blood counts dropping --This may be due to some source of bleed in your intestines --We would recommend to ask about a colonoscopy to further evaluate this problem --Visiting nurse services has been arranged and will come to your house tomorrow. --It is important that you stop smoking, by continuing to smoke you are hurting your lungs and increases your risk for heart disease and cancer. --It is very important that you take your medications as instructed. MEDICATION CHANGES: You are being discharged on insulin, You will have to check your sugar prior to each meal and administer insulin pending on how high your sugar is. You should write down what your sugar is and how much insulin you give yourself, Bring this information with you to your primary care doctor. You may need further adjustments to your insulin. Notify your doctor if blood sugars < 75 or persistently > 200 or any reading > 400 noted. Insulin sliding scale glucose # units of insulin <150 0 151-200 2 201-250 4 251-300 6 301-350 8 351-400 10 >401 12 and call your doctor You will be given Lasix 40mg to take ONCE per day Advise daily weights, notify your doctor if weight gain > 3lbs in 2 days, any swelling or new concerns noted. Prednisone as follows: Take 10 mg daily for 3 days starting tomorrow, then off. If you develop difficulty breathing, chest pain or black stools or bright red bleeding in your stools return to the ER. Referrals: Villa Del Rio MD [Staff Physician] - Kan Joaquin MD [Staff Physician] - Taj Castillo MD [Staff Physician] - Disposition: VNS/HOME HEALTH CARE - Home Medications Comprehensive Discharge Medication List: Ambulatory Orders Escitalopram Oxalate [Lexapro -] 20 mg PO DAILY 09/14/15 Olanzapine [Zyprexa -] 10 mg PO BID 09/14/15 Aspirin Coated [Ecotrin -] 81 mg PO DAILY #30 tablet.ec 09/16/15 Amlodipine Besylate [Norvasc -] 10 mg PO DAILY 02/25/16 Carvedilol [Coreg -] 12.5 mg PO BID 02/25/16 Hydralazine HCl [Apresoline -] 50 mg PO TID 02/25/16 Albuterol Sulfate Inhaler - [Ventolin HFA Inhaler -] 2 inh PO Q4H PRN #1 inh Ferrous Sulfate [Feosol] 325 mg PO DAILY #14 ud 03/29/17 Lisinopril [Prinivil] 5 mg PO DAILY #14 tablet 03/29/17 Atorvastatin Ca [Lipitor] 40 mg PO DAILY 04/01/17 Cefuroxime Axetil [Ceftin -] 500 mg PO BID #8 tablet 04/24/17 Insulin (Novolog) [Novolog Flexpen] See Protocol SQ ACHS #1 pen 04/24/17 Miscellaneous Medical Supply [Glucometer Device] 1 each NR ASDIR #1 kit Miscellaneous Medical Supply [Glucometer Test Strips #100] 1 each NR ASDIR #1 box 04/24/17 Furosemide [Lasix] 40 mg PO DAILY #30 tablet 04/25/17 Insulin (Levemir) [Levemir Flexpen -] 14 units SQ HS #1 pen 04/25/17 Prednisone 10 mg PO DAILY #3 tablet 04/25/17 This patient is new to me today: No Emergency Visit: No Critical Care patient: No - Discharge Referral Referred to [facility] Med P.C.: No
== END 2017-04-25 15:10 | disposition home health service (06) | DRG 194 ==
LOC: JER 14:07 → JERBED 17:03 → J4W 04-14 08:23 → JICU 04-16 02:22 → J4W 04-17 02:24 → J5S 04-20 21:04
PROVIDERS: ADMIT Hospitalist; ATTEND Hospitalist
PROC: 5A09557 Assistance with Respiratory Ventilation, Greater than 96 Consecutive Hours, Continuous Positive Airway Pressure (ICD-10-PCS; principal; 2017-04-13)
DX: I13.0 Hypertensive heart and chronic kidney disease with heart failure and stage 1 through stage 4 chronic kidney disease, or unspecified chronic kidney disease (principal); E11.22 Type 2 diabetes mellitus with diabetic chronic kidney disease; N18.4 Chronic kidney disease, stage 4 (severe); N18.9 Chronic kidney disease, unspecified; I50.33 Acute on chronic diastolic (congestive) heart failure; J96.01 Acute respiratory failure with hypoxia; J96.02 Acute respiratory failure with hypercapnia; F31.89 Other bipolar disorder; F20.89 Other schizophrenia; D50.9 Iron deficiency anemia, unspecified; E78.5 Hyperlipidemia, unspecified; B19.20 Unspecified viral hepatitis C without hepatic coma; J44.1 Chronic obstructive pulmonary disease with (acute) exacerbation; F17.200 Nicotine dependence, unspecified, uncomplicated; N17.9 Acute kidney failure, unspecified; E66.01 Morbid (severe) obesity due to excess calories; Z68.41 Body mass index [BMI] 40.0-44.9, adult; G47.33 Obstructive sleep apnea (adult) (pediatric); E83.39 Other disorders of phosphorus metabolism; E87.2 Acidosis; R59.0 Localized enlarged lymph nodes; I27.20 Pulmonary hypertension, unspecified; R60.0 Localized edema; F11.10 Opioid abuse, uncomplicated; E11.65 Type 2 diabetes mellitus with hyperglycemia; J98.11 Atelectasis; J18.9 Pneumonia, unspecified organism; R78.81 Bacteremia; Z88.0 Allergy status to penicillin; Z91.14 Patient's other noncompliance with medication regimen
CPT/HCPCS: 36415; 36430; 36600; 71010-TC; 71250-TC; 80048; 80053; 80307; 81003; 81015; 82436; 82550; 82803; 83605; 83735; 83880; 83935; 84100; 84133; 84300; 84484; 85025; 85027; 85610; 85651; 85730; 86140; 86850; 86900; 86901; 86922; 87040; 87086; 87186; 87389; 87899; 93005; 93010; 94640; 94660; 94761; 99285-25; J1644; P9058

== ENCOUNTER 2017-05-03 12:48 | Inpatient (IN) | payer OTHER ==
[2017-05-03] MEDS ORDERED: FUROSEMIDE 40 MG/4 ML INJECTABLE VIAL IVPB ONE (13:06)
[2017-05-03 13:34] LABS: ARTERIAL BLOOD GAS BASE EXCESS 2.5 meq/l (-2-2)
[2017-05-03 13:39] LABS: BASO % 0.2 % (0-2.0); EOS % 0.4 % (0-4.5); HEMATOCRIT 25.4 % (32.4-45.2); HEMOGLOBIN 7.4 GM/dL (10.7-15.3); LYMPH % 16.1 % (8-40); MCH 24.3 pg (25.7-33.7); MCHC 29.2 g/dl (32.0-36.0); MEAN CELL VOLUME 83.3 fl (80-96); MEAN PLT VOLUME 7.4 fl (7.5-11.1); MONO % 8.7 % (3.8-10.2); NEUT % 74.6 % (42.8-82.8); PLATELET COUNT 182 K/MM3 (134-434); RBC 3.04 M/mm3 (3.60-5.2); RDW 24.2 % (11.6-15.6); WHITE BLOOD COUNT 7.1 K/mm3 (4.0-10.0)
[2017-05-03] MEDS: NITROGLYCERIN 25MG/D5W 250ML 25 MG/250 ML ML IVPB SCH ×2 (13:48→21:48)
[2017-05-03 13:50] LABS: INR 1.03 (0.82-1.09); PROTHROMBIN TIME (PATIENT) 11.6 SEC (9.98-11.88)
[2017-05-03 13:51] LABS: ALBUMIN 3.1 g/dl (3.4-5.0); ANION GAP 10 (8-16); BLOOD UREA NITROGEN 25 mg/dL (7-18); CALCIUM 8.1 mg/dL (8.5-10.1); CHLORIDE 103 mmol/L (98-107); CO2 29 mmol/L (21-32); GLUCOSE,RANDOM 238 mg/dL (74-106); POTASSIUM 3.4 mmol/L (3.5-5.1); SODIUM 142 mmol/L (136-145)
[2017-05-03 13:53] LABS: ACTIVATED PTT 26.4 SECONDS (26.9-34.4)
[2017-05-03 13:54] LABS: BILIRUBIN,TOTAL 0.8 mg/dL (0.2-1.0); CREATININE 1.5 mg/dL (0.55-1.02); SGOT/AST 22 U/L (15-37); SGPT/ALT 41 U/L (12-78); TOT PROT 7.1 g/dl (6.4-8.2)
[2017-05-03 13:55] LABS: ALK PHOS 130 U/L (45-117); N-TERMINAL BNP 2042.55 pg/ml (5-125)
--- NOTE | 2017-05-03 14:22 | PDOC ---
History of Present Illness <Lucero Sutherland - Last Filed: 05/03/17 14:29> - History of Present Illness Initial Comments: 05/03/17 14:17 "The patient is a 61 year old female, with a significant past medical history of hypertension, hyperlipidemia, diabetes, CHF, COPD, hepatitis C, chronic renal insufficiency, schizophrenia/bipolar disorder, who presents to the emergency department [facility] from home for evaluation of shortness of breath. The patient has had multiple recent admissions for respiratory distress. Per EMS the patients O2 sat was found to be in the 80s when they arrived on scene. EMS reports placing the patient on CPAP, where patients sat went up in the low 90s. Patient reportedly told EMS she ran out of her insulin 6 days ago. Unclear if she has been taking her other medications. She denies any chest pain, diaphoresis, or palpitations. She denies any fever, chills, cough, headache, or dizziness. She denies any abdominal pain, nausea, vomiting, diarrhea, constipation, or changes in urination. She denies any recent travel or sick contacts. Allergies: Penicillins, Ibuprofen, Metformin Past Surgical History: Hysterectomy Social History: Current everyday smoker. No ETOH or recreational drug use PCP: Dr. Moses([place]) " <Chip Dodge - Last Filed: 05/03/17 15:03> - General Chief Complaint: Shortness of Breath Stated Complaint: CHF Time Seen by Provider: 05/03/17 12:52 Past History <Lucero Sutherland - Last Filed: 05/03/17 14:29> - Past Medical History Anemia: No Asthma: No Cancer: No Cardiac Disorders: Yes CVA: Yes COPD: Yes CHF: No DVT: No Dementia: No Diabetes: Yes GI Disorders: No Disorders: No HTN: Yes Hypercholesterolemia: Yes Liver Disease: Yes (Hepatitis C) Psychiatric Problems: Yes Seizures: No Thyroid Disease: (CKI) - Surgical History Abdominal Surgery: Yes Appendectomy: No Cardiac Surgery: No Cholecystectomy: No Lung Surgery: No Neurologic Surgery: No Orthopedic Surgery: No - Suicide/Smoking/Psychosocial Hx Smoking History: Never smoked Have you smoked in the past 12 months: Yes Number of Cigarettes Smoked Daily: 4 Information on smoking cessation initiated: No 'Breaking Loose' booklet given: 04/14/17 Hx Alcohol Use: No Drug/Substance Use Hx: No Substance Use Type: None Hx Substance Use Treatment: No <Chip Dodge - Last Filed: 05/03/17 15:03> - Past Medical History Allergies/Adverse Reactions: Allergies Allergy/AdvReac Type Severity Reaction Status Date / Time ibuprofen [From Motrin IB] Allergy Verified 05/03/17 13:05 metformin Allergy Verified 05/03/17 13:05 Penicillins Allergy Verified 05/03/17 13:05 Home Medications: Ambulatory Orders Escitalopram Oxalate [Lexapro -] 20 mg PO DAILY 09/14/15 Olanzapine [Zyprexa -] 10 mg PO BID 09/14/15 Aspirin Coated [Ecotrin -] 81 mg PO DAILY #30 tablet.ec 09/16/15 Amlodipine Besylate [Norvasc -] 10 mg PO DAILY 02/25/16 Carvedilol [Coreg -] 12.5 mg PO BID 02/25/16 Hydralazine HCl [Apresoline -] 50 mg PO TID 02/25/16 Albuterol Sulfate Inhaler - [Ventolin HFA Inhaler -] 2 inh PO Q4H PRN #1 inh Ferrous Sulfate [Feosol] 325 mg PO DAILY #14 ud 03/29/17 Lisinopril [Prinivil] 5 mg PO DAILY #14 tablet 03/29/17 Atorvastatin Ca [Lipitor] 40 mg PO DAILY 04/01/17 Cefuroxime Axetil [Ceftin -] 500 mg PO BID #8 tablet 04/24/17 Insulin (Novolog) [Novolog Flexpen] See Protocol SQ ACHS #1 pen 04/24/17 Miscellaneous Medical Supply [Glucometer Device] 1 each NR ASDIR #1 kit Miscellaneous Medical Supply [Glucometer Test Strips #100] 1 each NR ASDIR #1 box 04/24/17 Furosemide [Lasix] 40 mg PO DAILY #30 tablet 04/25/17 Insulin (Levemir) [Levemir Flexpen -] 14 units SQ HS #1 pen 04/25/17 Prednisone 10 mg PO DAILY #3 tablet 04/25/17 Review of Systems - Review of Systems Able to Perform ROS?: No (On BIPAP) <Chip Dodge - Last Filed: 05/03/17 15:03> *Physical Exam - Vital Signs Last Vital Signs Temp Pulse Resp BP Pulse Ox 88 18 149/77 98 05/03/17 12:50 05/03/17 12:50 05/03/17 12:50 05/03/17 13:00 <Lucero Sutherland - Last Filed: 05/03/17 14:29> - Vital Signs Last Vital Signs Temp Pulse Resp BP Pulse Ox 88 18 149/77 98 05/03/17 12:50 05/03/17 12:50 05/03/17 12:50 05/03/17 13:00 - Physical Exam Comments: 05/03/17 14:21 "GENERAL: Somnolent but arousable and alert. Mild respiratory distress. HEAD: No signs of trauma EYES: PERRLA, EOMI, sclera anicteric, conjunctiva clear ENT: Auricles normal inspection, hearing grossly normal, nares patent, oropharynx clear without exudates. Moist mucosa NECK: Nontender, no stepoffs, Normal ROM, supple, no lymphadenopathy, JVD, or masses LUNGS: Diffuse rales bilaterally, no wheezing. HEART: Regular rate and rhythm, normal S1 and S2, no murmurs, rubs or gallops ABDOMEN: Soft, nontender, normoactive bowel sounds. No guarding, no rebound. No masses EXTREMITIES: 2+ pitting edema in the bilateral lower extremities. Normal range of motion. No clubbing or cyanosis. No cords, erythema, or tenderness NEUROLOGICAL: Cranial nerves II through XII intact. 5/5 strength and sensation in all extremities, Normal speech, normal gait SKIN: Warm, Dry, normal turgor, no rashes or lesions noted. " <Peyton Dodgean - Last Filed: 05/03/17 15:03> ED Treatment Course - LABORATORY CBC & Chemistry Diagram: 05/03/17 13:18 05/03/17 13:18 - ADDITIONAL ORDERS Additional order review: Laboratory Results 05/03/17 05/03/17 05/03/17 14:02 13:40 13:30 PT with INR INR PTT (Actin FS) Anticoagulation Therapy No Result Required. ABG pH 7.35 ABG pCO2 at Pt Temp 51.7 H D ABG pO2 at Pt Temp 40.2 L* D ABG HCO3 27.9 H ABG O2 Sat (Measured) 70.4 L* ABG O2 Content 7.0 L* ABG Base Excess 2.5 H Carboxyhemoglobin 3.8 H O2 Delivery Device No Result Required. Oxygen Flow Rate No Result Required. Vent Mode No Result Required. Vent Rate No Result Required. Mechanical Rate No Result Required. Pressure Support Vent No Result Required. Sodium Potassium Chloride Carbon Dioxide Anion Gap BUN Creatinine Creat Clearance w eGFR Random Glucose Lactic Acid 0.9 Calcium Total Bilirubin AST ALT Alkaline Phosphatase Creatine Kinase Troponin I B-Natriuretic Peptide Total Protein Albumin Urine Color Yellow Urine Appearance Clear Urine pH 5.0 Ur Specific [place] 1.012 Urine Protein 1+ H Urine Glucose (UA) Negative Urine Ketones Negative Urine Blood Negative Urine Nitrite Positive Urine Bilirubin Negative Urine Urobilinogen 2.0 H Ur Leukocyte Esterase Negative Urine WBC (Auto) 1 Urine RBC (Auto) <1 Ur Epithelial Cells Rare Urine Bacteria Many Hyaline Casts 4 Urine Mucus Rare Acetone, Qual 05/03/17 05/03/17 05/03/17 13:18 13:18 13:18 PT with INR 11.60 INR 1.03 PTT (Actin FS) 26.4 L Anticoagulation Therapy ABG pH ABG pCO2 at Pt Temp ABG pO2 at Pt Temp ABG HCO3 ABG O2 Sat (Measured) ABG O2 Content ABG Base Excess Carboxyhemoglobin O2 Delivery Device Oxygen Flow Rate Vent Mode Vent Rate Mechanical Rate Pressure Support Vent Sodium 142 Potassium 3.4 L Chloride 103 D Carbon Dioxide 29 D Anion Gap 10 BUN 25 H D Creatinine 1.5 H Creat Clearance w eGFR 35.19 Random Glucose 238 H D Lactic Acid Calcium 8.1 L Total Bilirubin 0.8 D AST 22 D ALT 41 D Alkaline Phosphatase 130 H Creatine Kinase Troponin I B-Natriuretic Peptide Total Protein 7.1 Albumin 3.1 L Urine Color Urine Appearance Urine pH Ur Specific [place] Urine Protein Urine Glucose (UA) Urine Ketones Urine Blood Urine Nitrite Urine Bilirubin Urine Urobilinogen Ur Leukocyte Esterase Urine WBC (Auto) Urine RBC (Auto) Ur Epithelial Cells Urine Bacteria Hyaline Casts Urine Mucus Acetone, Qual Negative L 05/03/17 13:18 PT with INR INR PTT (Actin FS) Anticoagulation Therapy ABG pH ABG pCO2 at Pt Temp ABG pO2 at Pt Temp ABG HCO3 ABG O2 Sat (Measured) ABG O2 Content ABG Base Excess Carboxyhemoglobin O2 Delivery Device Oxygen Flow Rate Vent Mode Vent Rate Mechanical Rate Pressure Support Vent Sodium Potassium Chloride Carbon Dioxide Anion Gap BUN Creatinine Creat Clearance w eGFR Random Glucose Lactic Acid Calcium Total Bilirubin AST ALT Alkaline Phosphatase Creatine Kinase 44 Troponin I 0.02 B-Natriuretic Peptide 2042.55 H Total Protein Albumin Urine Color Urine Appearance Urine pH Ur Specific [place] Urine Protein Urine Glucose (UA) Urine Ketones Urine Blood Urine Nitrite Urine Bilirubin Urine Urobilinogen Ur Leukocyte Esterase Urine WBC (Auto) Urine RBC (Auto) Ur Epithelial Cells Urine Bacteria Hyaline Casts Urine Mucus Acetone, Qual 05/03/17 13:18 RBC 3.04 L MCV 83.3 MCHC 29.2 L RDW 24.2 H D MPV 7.4 L Neutrophils % 74.6 Lymphocytes % 16.1 D Monocytes % 8.7 Eosinophils % 0.4 D Basophils % 0.2 - Medications Given in the ED: ED Medications Discontinued Medications Generic Name Dose Route Start Last Admin Trade Name Freq PRN Reason Stop Dose Admin Furosemide 40 mg 05/03/17 13:06 05/03/17 13:30 Lasix Injection - IVPB 05/03/17 13:07 40 mg ONCE ONE Administration <Lucero Sutherland - Last Filed: 05/03/17 14:29> - LABORATORY CBC & Chemistry Diagram: 05/03/17 13:18 05/03/17 13:18 - ADDITIONAL ORDERS Additional order review: Laboratory Results 05/03/17 05/03/17 05/03/17 13:30 13:18 13:18 PT with INR INR PTT (Actin FS) Anticoagulation Therapy No Result Required. ABG pH 7.35 ABG pCO2 at Pt Temp 51.7 H D ABG pO2 at Pt Temp 40.2 L* D ABG HCO3 27.9 H ABG O2 Sat (Measured) 70.4 L* ABG O2 Content 7.0 L* ABG Base Excess 2.5 H Carboxyhemoglobin 3.8 H O2 Delivery Device No Result Required. Oxygen Flow Rate No Result Required. Vent Mode No Result Required. Vent Rate No Result Required. Mechanical Rate No Result Required. Pressure Support Vent No Result Required. Sodium 142 Potassium 3.4 L Chloride 103 D Carbon Dioxide 29 D Anion Gap 10 BUN 25 H D Creatinine 1.5 H Creat Clearance w eGFR 35.19 Random Glucose 238 H D Calcium 8.1 L Total Bilirubin 0.8 D AST 22 D ALT 41 D Alkaline Phosphatase 130 H Creatine Kinase Troponin I B-Natriuretic Peptide Total Protein 7.1 Albumin 3.1 L Acetone, Qual Negative L 05/03/17 05/03/17 13:18 13:18 PT with INR 11.60 INR 1.03 PTT (Actin FS) 26.4 L Anticoagulation Therapy ABG pH ABG pCO2 at Pt Temp ABG pO2 at Pt Temp ABG HCO3 ABG O2 Sat (Measured) ABG O2 Content ABG Base Excess Carboxyhemoglobin O2 Delivery Device Oxygen Flow Rate Vent Mode Vent Rate Mechanical Rate Pressure Support Vent Sodium Potassium Chloride Carbon Dioxide Anion Gap BUN Creatinine Creat Clearance w eGFR Random Glucose Calcium Total Bilirubin AST ALT Alkaline Phosphatase Creatine Kinase 44 Troponin I 0.02 B-Natriuretic Peptide 2042.55 H Total Protein Albumin Acetone, Qual 05/03/17 13:18 RBC 3.04 L MCV 83.3 MCHC 29.2 L RDW 24.2 H D MPV 7.4 L Neutrophils % 74.6 Lymphocytes % 16.1 D Monocytes % 8.7 Eosinophils % 0.4 D Basophils % 0.2 - RADIOLOGY Radiology Studies Ordered: Category Date Time Status CHEST X-RAY PORTABLE* [RAD] Stat Radiology 05/03/17 12:53 Completed - Medications Given in the ED: ED Medications Discontinued Medications Generic Name Dose Route Start Last Admin Trade Name Freq PRN Reason Stop Dose Admin Furosemide 40 mg 05/03/17 13:06 05/03/17 13:30 Lasix Injection - IVPB 05/03/17 13:07 40 mg ONCE ONE Administration <Chip Dodge - Last Filed: 05/03/17 15:03> Medical Decision Making - Medical Decision Making 05/03/17 14:29 First microblog placed to hospitalists at 14:32. Awaiting call back. <Lucero Sutherland - Last Filed: 05/03/17 14:29> - Critical Care Time Total Critical Care Time (minutes): 45 Critical Care Statement: The care of this patient involved high complexity decision making to prevent further life threatening deterioration of the patient 's condition and/or to evaluate & treat vital organ system(s) failure or risk of failure. - Medical Decision Making 05/03/17 14:23 61 F with SOB. Exam notable for rales and lower extremity edema, consistent with CHF exacerbation. No wheezing on exam to suggest COPD. Pt was placed on CPAP by EMS, with subjective improvement in respiratory status. Clinically pt has shown improvements in O2 sat and respiratory rate as well. - Labs, BNP - Serial ABGs - Wean BIPAP - Nitro gtt - Lasix IV - Spoke with Dr. Macario, who has accepted pt for ICU level care 05/03/17 15:01 CBC,CMP WBC 7.1 K/mm3 (4.0-10.0) 05/03/17 13:18 RBC 3.04 M/mm3 (3.60-5.2) L 05/03/17 13:18 Hgb 7.4 GM/dL (10.7-15.3) L D 05/03/17 13:18 Hct 25.4 % (32.4-45.2) L 05/03/17 13:18 MCV 83.3 fl (80-96) 05/03/17 13:18 MCH 24.3 pg (25.7-33.7) L 05/03/17 13:18 MCHC 29.2 g/dl (32.0-36.0) L 05/03/17 13:18 RDW 24.2 % (11.6-15.6) H D 05/03/17 13:18 Plt Count 182 K/MM3 (134-434) D 05/03/17 13:18 MPV 7.4 fl (7.5-11.1) L 05/03/17 13:18 Neutrophils % 74.6 % (42.8-82.8) 05/03/17 13:18 Lymphocytes % 16.1 % (8-40) D 05/03/17 13:18 Monocytes % 8.7 % (3.8-10.2) 05/03/17 13:18 Eosinophils % 0.4 % (0-4.5) D 05/03/17 13:18 Basophils % 0.2 % (0-2.0) 05/03/17 13:18 Sodium 142 mmol/L (136-145) 05/03/17 13:18 Potassium 3.4 mmol/L (3.5-5.1) L 05/03/17 13:18 Chloride 103 mmol/L (98-107) D 05/03/17 13:18 Carbon Dioxide 29 mmol/L (21-32) D 05/03/17 13:18 Anion Gap 10 (8-16) 05/03/17 13:18 BUN 25 mg/dL (7-18) H D 05/03/17 13:18 Creatinine 1.5 mg/dL (0.55-1.02) H 05/03/17 13:18 Creat Clearance w eGFR 35.19 (>60) 05/03/17 13:18 Random Glucose 238 mg/dL (74-106) H D 05/03/17 13:18 Lactic Acid 0.9 mmol/L (0.4-2.0) 05/03/17 13:40 Calcium 8.1 mg/dL (8.5-10.1) L 05/03/17 13:18 Total Bilirubin 0.8 mg/dL (0.2-1.0) D 05/03/17 13:18 AST 22 U/L (15-37) D 05/03/17 13:18 ALT 41 U/L (12-78) D 05/03/17 13:18 Alkaline Phosphatase 130 U/L (45-117) H 05/03/17 13:18 Creatine Kinase 44 IU/L (26-192) 05/03/17 13:18 Troponin I 0.02 ng/ml (0.00-0.05) 05/03/17 13:18 B-Natriuretic Peptide 2042.55 pg/ml (5-125) H 05/03/17 13:18 Total Protein 7.1 g/dl (6.4-8.2) 05/03/17 13:18 Albumin 3.1 g/dl (3.4-5.0) L 05/03/17 13:18 ABG with pH 7.35, CO2 50, improved from prior. CXR with congestive changes, BNP elevated, consistent with CHF exacerbation. Pt's last echo from 03/2017 showed normal EF. Possible new onset CHF. Pt given lasix 40mg IV, on BIPAP and nitro gtt Admitted to [facility]. <Chip Dodge - Last Filed: 05/03/17 15:03> *DC/Admit/Observation/Transfer - Attestations Scribe Attestion: 05/03/17 14:32 Documentation prepared by Lucero Sutherland, acting as medical review coordinator for Chip Dodge MD. <Lucero Sutherland - Last Filed: 05/03/17 14:29> - Discharge Dispostion Admit: Yes - Attestations Physician Attestion: 05/03/17 15:03 I, Dr. Chip Dodge MD, attest that this document has been prepared under my direction and personally reviewed by me in its entirety. I further attest, that it accurately reflects all work, treatment, procedures and medical decision -making performed by me. <Chip Dodge - Last Filed: 05/03/17 15:03> Diagnosis at time of Disposition: CHF (congestive heart failure)
[2017-05-03 14:25] LABS: URINE APPEARANCE CLEAR; URINE BILIRUBIN NEGATIVE (NEGATIVE); URINE BLOOD NEGATIVE (NEGATIVE); URINE COLOR YELLOW; URINE GLUCOSE (UA) NEGATIVE (NEGATIVE); URINE KETONE NEGATIVE (NEGATIVE); URINE LEUK ESTERASE NEGATIVE (NEGATIVE); URINE NITRITE POSITIVE (NEGATIVE)
[2017-05-03 14:26] LABS: URINE PROTEIN 1+ (NEGATIVE)
[2017-05-03 14:28] LABS: EPI CELLS RARE /HPF (FEW); URINE BACTERIA MANY /hpf (NONE SEEN); URINE HYALINE CAST 4 /lpf; URINE MUCUS RARE
[2017-05-03 14:47] LABS: ALLENS TEST POSITIVE
[2017-05-03 15:08] LABS: ARTERIAL BLOOD GAS PCO2 51.7 mmHg (35-45); ARTERIAL BLOOD GAS PO2 40.2 mmHg (80-100); ARTERIAL BLOOD GAS pH 7.35 (7.35-7.45)
[2017-05-03 15:09] LABS: ARTERIAL BLD GAS O2 SATURATION 70.4 % (90-98.9); CARBOXYHEMOGLOBIN 3.8 gm% (0.5-2.0)
--- NOTE | 2017-05-03 15:19 | HP ---
Admitting History and Physical - Admission Chief Complaint: sob History of Present Illness: HPI: This is a 61 year old female, pt information gathered from ED record and medical chart, pt is on bipap somnolent, pmhx includes HTN, HLD, CHF, DM II, COPD, hepatitis C, CKD, schizophrenia/bipolar disorder presnted to the ED with worsening SOB by EMS. EMS found oxygen saturation to be in the 80's, after placing on CPAP in the 90's. Initially, pt told EMS ran out of insulin 6 days prior, unclear if took cardiac meds as well. Currently, pt in ED on bipap, she arouses to her name and touch and opens her eyes quickly falling back asleep. She appears stable on Bipap, nitro gtt. Given lasix in ED with melendez placement and + urine output Previously discharged from [facility] on 05/03. PCP: Dr. 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 Cardiovascular: Yes: HTN Pulmonary: Yes: COPD Renal/: Yes: Renal Inusuff Infectious Disease: Yes: Other (HCV) Psych: Yes: Bipolar, Schizophrenia Endocrine: Yes: Diabetes Mellitus - Past Surgical History Past Surgical History: Yes: Hysterectomy - Smoking History Smoking history: Never smoked Have you smoked in the past 12 months: Yes Aproximately how many cigarettes per day: 4 - Alcohol/Substance Use Hx Alcohol Use: No History of Substance Use: reports: None - Social History Usual Living Arrangement: Yes: Alone ADL: Support Services History of Recent Travel: No Home Medications - Allergies Allergies/Adverse Reactions: Allergies Allergy/AdvReac Type Severity Reaction Status Date / Time ibuprofen [From Motrin IB] Allergy Verified 05/03/17 13:05 metformin Allergy Verified 05/03/17 13:05 Penicillins Allergy Verified 05/03/17 13:05 - Home Medications Home Medications: Ambulatory Orders Escitalopram Oxalate [Lexapro -] 20 mg PO DAILY 09/14/15 Olanzapine [Zyprexa -] 10 mg PO BID 09/14/15 Aspirin Coated [Ecotrin -] 81 mg PO DAILY #30 tablet.ec 09/16/15 Amlodipine Besylate [Norvasc -] 10 mg PO DAILY 02/25/16 Carvedilol [Coreg -] 12.5 mg PO BID 02/25/16 Hydralazine HCl [Apresoline -] 50 mg PO TID 02/25/16 Albuterol Sulfate Inhaler - [Ventolin HFA Inhaler -] 2 inh PO Q4H PRN #1 inh Ferrous Sulfate [Feosol] 325 mg PO DAILY #14 ud 03/29/17 Lisinopril [Prinivil] 5 mg PO DAILY #14 tablet 03/29/17 Atorvastatin Ca [Lipitor] 40 mg PO DAILY 04/01/17 Cefuroxime Axetil [Ceftin -] 500 mg PO BID #8 tablet 04/24/17 Insulin (Novolog) [Novolog Flexpen] See Protocol SQ ACHS #1 pen 04/24/17 Miscellaneous Medical Supply [Glucometer Device] 1 each NR ASDIR #1 kit Miscellaneous Medical Supply [Glucometer Test Strips #100] 1 each NR ASDIR #1 box 04/24/17 Furosemide [Lasix] 40 mg PO DAILY #30 tablet 04/25/17 Insulin (Levemir) [Levemir Flexpen -] 14 units SQ HS #1 pen 04/25/17 Prednisone 10 mg PO DAILY #3 tablet 04/25/17 Family Disease History - Family Disease History Family Disease History: Heart Disease: Father ( in 40s) Review of Systems Unable to obtain ROS, reason: due to pt condition Physical Examination Vital Signs: Vital Signs Temperature Pulse Rate 90 05/03/17 14:50 Respiratory Rate 26 H 05/03/17 14:50 Blood Pressure 129/76 05/03/17 14:50 O2 Sat by Pulse Oximetry (%) 90 L 05/03/17 14:50 Constitutional: Yes: Well Nourished Eyes: Yes: PERRL HENT: Yes: Atraumatic Neck: Yes: Supple Cardiovascular: Yes: Regular Rate and Rhythm, S1, S2 Respiratory: Yes: Diminished, On BiPap, Rhonchi Gastrointestinal: Yes: Normal Bowel Sounds, Soft Edema: Yes Edema: LLE: 3+, RLE: 3+ Integumentary: Yes: WNL Neurological: Yes: Other (arousable to name and touch, somnulent) Labs: CBC, BMP 05/03/17 13:18 05/03/17 13:18 Imaging - Results Chest X-ray: Report Reviewed, Image Reviewed Problem List - Problems (1) CHF (congestive heart failure) Code(s): I50.9 - HEART FAILURE, UNSPECIFIED (2) Acute on chronic diastolic (congestive) heart failure Code(s): I50.33 - ACUTE ON CHRONIC DIASTOLIC (CONGESTIVE) HEART FAILURE (3) Acute respiratory failure with hypoxia and hypercapnia Code(s): J96.01 - ACUTE RESPIRATORY FAILURE WITH HYPOXIA; J96.02 - ACUTE RESPIRATORY FAILURE WITH HYPERCAPNIA (4) COPD exacerbation Code(s): J44.1 - CHRONIC OBSTRUCTIVE PULMONARY DISEASE W (ACUTE) EXACERBATION (5) Leg edema Code(s): R60.0 - LOCALIZED EDEMA (6) Anxiety Code(s): F41.9 - ANXIETY DISORDER, UNSPECIFIED (7) Bipolar disorder Code(s): F31.9 - BIPOLAR DISORDER, UNSPECIFIED Qualifiers: Active/Remission status: remission status unspecified Qualified Code(s): F31.9 - Bipolar disorder, unspecified (8) CAD (coronary artery disease) Code(s): I25.10 - ATHSCL HEART DISEASE OF [place] CORONARY ARTERY W/O ANG PCTRS Qualifiers: Coronary Disease-Associated Artery/Lesion type: [place] artery [place] vs. transplanted heart: [place] heart Associated angina: without angina Qualified Code(s): I25.10 - Atherosclerotic heart disease of [place] coronary artery without angina pectoris (9) COPD (chronic obstructive pulmonary disease) Code(s): J44.9 - CHRONIC OBSTRUCTIVE PULMONARY DISEASE, UNSPECIFIED Qualifiers: COPD type: unspecified COPD Qualified Code(s): J44.9 - Chronic obstructive pulmonary disease, unspecified (10) Chronic kidney insufficiency Code(s): N18.9 - CHRONIC KIDNEY DISEASE, UNSPECIFIED Qualifiers: Chronic kidney disease stage: unspecified stage Qualified Code(s): N18.9 - Chronic kidney disease, unspecified (11) Diabetes mellitus Code(s): E11.9 - TYPE 2 DIABETES MELLITUS WITHOUT COMPLICATIONS Qualifiers: Diabetes mellitus type: type 2 Diabetes mellitus complication status: without complication Diabetes mellitus continuous churn buttermaker insulin use: without care home use Qualified Code(s): E11.9 - Type 2 diabetes mellitus without complications (12) Hypertension Code(s): I10 - ESSENTIAL (PRIMARY) HYPERTENSION Qualifiers: Hypertension type: essential hypertension Qualified Code(s): I10 - Essential (primary) hypertension Assessment/Plan Assessment: 61 year old female admitted with worsening SOB. Plan: 1. Acute hypoxic respiratory failure - Continue Bipap - ICU monitoring - Monitor ABG 2. Acute on chronic CHF exacerbation, - s/p lasix 40mg IV in ED - Maintain nitro gtt - Give additional dose of lasix 40mg after blood - Daily weight - I/O's - Cardiology consult 3. HTN - Stable - Hydralazine, lisinopril, norvasc, coreg 4. DM II - Levemir 14 untis hs - ISS, BGM ACHS 5. Psych - Continue psych meds 6. Acute blood loss anemia/iron deficiency anemia - Refuses colonoscopy - Give 1 unit packed cells now - Monitor hgb - Resume ferrous sulfate once stable 7. CKD - Appears stable at present - Caution with fluids 8. Nicotine dependence/ active smoker - Nicotine patch once stable - Refuses home o2, wont stop smoking 9. DVT ppx - Heparin sq Visit type - Emergency Visit Emergency Visit: Yes Care time: The patient presented to the Emergency Department on the above date and was hospitalized for further evaluation of their emergent condition. - New Patient This patient is new to me today: Yes Date on this admission: 05/03/17 - Critical Care Critical Care patient: No
[2017-05-03 15:27] LABS: ARTERIAL BLOOD GAS pH 7.34 (7.35-7.45)
[2017-05-03 15:28] LABS: ARTERIAL BLD GAS O2 SATURATION 91.4 % (90-98.9); ARTERIAL BLOOD GAS BASE EXCESS 2.5 meq/l (-2-2); ARTERIAL BLOOD GAS PO2 64.7 mmHg (80-100)
[2017-05-03 15:29] LABS: ALLENS TEST POSITIVE; CARBOXYHEMOGLOBIN 3.7 gm% (0.5-2.0)
[2017-05-03] MEDS: KCL 10 MEQ IVPB 10 MEQ/100 ML INFUS.BAG IVPB SCH ×2 (16:26→18:23)
--- NOTE | 2017-05-03 16:29 | CON.CARD ---
Consult Consult Specialty:: Cardiology Referred by:: Hospitalist Medicine Reason for Consultation:: Acute on chronic diastolic failure - History of Present Illness Chief Complaint: Dyspnea History of Present Illness: Patient is a 61 year old femal with exogenous obesity, history of schizophrenia/ bipolar disorder, chronic renal insufficiency, hypertension, COPD post recent exacerbation d/ave earlier today, CAD, diabetes mellitus, diastolic failure, CKD who presented to ED via EMS with dyspnea, tachypnea, lethargy and hypoxia saO2 80% RA, admits to medication compliance having run out of insulin and likely other medications, placed on bipap. 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 Cardio/Vascular: Yes: HTN Pulmonary: Yes: COPD Renal/: Yes: Renal Inusuff Infectious Disease: Yes: Other (HCV) Psych: Yes: Bipolar, Schizophrenia Endocrine: Yes: Diabetes Mellitus - Past Surgical History Past Surgical History: Yes: Hysterectomy - Alcohol/Substance Use Hx Alcohol Use: No History of Substance Use: reports: None - Smoking History Smoking history: Never smoked Have you smoked in the past 12 months: Yes Aproximately how many cigarettes per day: 4 - Social History Usual Living Arrangement: Alone ADL: Support Services History of Recent Travel: No Home Medications - Allergies Allergies/Adverse Reactions: Allergies Allergy/AdvReac Type Severity Reaction Status Date / Time ibuprofen [From Motrin IB] Allergy Verified 05/03/17 13:05 metformin Allergy Verified 05/03/17 13:05 Penicillins Allergy Verified 05/03/17 13:05 - Home Medications Home Medications: Ambulatory Orders Escitalopram Oxalate [Lexapro -] 20 mg PO DAILY 09/14/15 Olanzapine [Zyprexa -] 10 mg PO BID 09/14/15 Aspirin Coated [Ecotrin -] 81 mg PO DAILY #30 tablet.ec 09/16/15 Amlodipine Besylate [Norvasc -] 10 mg PO DAILY 02/25/16 Carvedilol [Coreg -] 12.5 mg PO BID 02/25/16 Hydralazine HCl [Apresoline -] 50 mg PO TID 02/25/16 Albuterol Sulfate Inhaler - [Ventolin HFA Inhaler -] 2 inh PO Q4H PRN #1 inh Ferrous Sulfate [Feosol] 325 mg PO DAILY #14 ud 03/29/17 Lisinopril [Prinivil] 5 mg PO DAILY #14 tablet 03/29/17 Atorvastatin Ca [Lipitor] 40 mg PO DAILY 04/01/17 Cefuroxime Axetil [Ceftin -] 500 mg PO BID #8 tablet 04/24/17 Insulin (Novolog) [Novolog Flexpen] See Protocol SQ ACHS #1 pen 04/24/17 Miscellaneous Medical Supply [Glucometer Device] 1 each NR ASDIR #1 kit Miscellaneous Medical Supply [Glucometer Test Strips #100] 1 each NR ASDIR #1 box 04/24/17 Furosemide [Lasix] 40 mg PO DAILY #30 tablet 04/25/17 Insulin (Levemir) [Levemir Flexpen -] 14 units SQ HS #1 pen 04/25/17 Prednisone 10 mg PO DAILY #3 tablet 04/25/17 Family Disease History - Family Disease History Family Disease History: Heart Disease: Father ( in 40s) Review of Systems Unable to obtain ROS, reason: Lethargic on bipap Vital Signs: Vital Signs Temperature Pulse Rate 90 05/03/17 14:50 Respiratory Rate 26 H 05/03/17 14:50 Blood Pressure 129/76 05/03/17 14:50 O2 Sat by Pulse Oximetry (%) 90 L 05/03/17 14:50 Respiratory: Yes: On BiPap, Rhonchi Gastrointestinal: Yes: Normal Bowel Sounds, Soft, Abdomen, Obese Cardiovascular: Yes: Regular Rate and Rhythm JVD: No Carotid Bruit: No Heart Sounds: Yes: S1, S2 Murmur: Yes: Systolic Murmur, Grade 1 Edema: Yes Edema: LLE: 2+, RLE: 2+ - Other Data Labs, Other Data: CBC, BMP 05/03/17 13:18 05/03/17 13:18 INR, PTT INR 1.03 (0.82-1.09) 05/03/17 13:18 Troponin, BNP 05/03/17 13:18 Troponin I 0.02 B-Natriuretic Peptide 2042.55 H Troponin, BNP 05/03/17 13:18 Troponin I 0.02 B-Natriuretic Peptide 2042.55 H NSR Echo: Report Reviewed Ejection Fraction %: LVEF > or = 40 % Imaging - Results Chest X-ray: Report Reviewed (CHF, pulm edema) Problem List - Problems (1) Acute on chronic diastolic (congestive) heart failure Code(s): I50.33 - ACUTE ON CHRONIC DIASTOLIC (CONGESTIVE) HEART FAILURE (2) Acute respiratory failure with hypoxia and hypercapnia Code(s): J96.01 - ACUTE RESPIRATORY FAILURE WITH HYPOXIA; J96.02 - ACUTE RESPIRATORY FAILURE WITH HYPERCAPNIA (3) Leg edema Code(s): R60.0 - LOCALIZED EDEMA (4) CAD (coronary artery disease) Code(s): I25.10 - ATHSCL HEART DISEASE OF [place] CORONARY ARTERY W/O ANG PCTRS Qualifiers: Coronary Disease-Associated Artery/Lesion type: [place] artery [place] vs. transplanted heart: [place] heart Associated angina: without angina Qualified Code(s): I25.10 - Atherosclerotic heart disease of [place] coronary artery without angina pectoris (5) COPD (chronic obstructive pulmonary disease) Code(s): J44.9 - CHRONIC OBSTRUCTIVE PULMONARY DISEASE, UNSPECIFIED Qualifiers: COPD type: unspecified COPD Qualified Code(s): J44.9 - Chronic obstructive pulmonary disease, unspecified (6) Chronic kidney insufficiency Code(s): N18.9 - CHRONIC KIDNEY DISEASE, UNSPECIFIED Qualifiers: Chronic kidney disease stage: unspecified stage Qualified Code(s): N18.9 - Chronic kidney disease, unspecified (7) Diabetes mellitus Code(s): E11.9 - TYPE 2 DIABETES MELLITUS WITHOUT COMPLICATIONS Qualifiers: Diabetes mellitus type: type 2 Diabetes mellitus complication status: without complication Diabetes mellitus human projectile insulin use: without long-term use Qualified Code(s): E11.9 - Type 2 diabetes mellitus without complications (8) Hypertension Code(s): I10 - ESSENTIAL (PRIMARY) HYPERTENSION Qualifiers: Hypertension type: essential hypertension Qualified Code(s): I10 - Essential (primary) hypertension (9) Schizophrenia Code(s): F20.9 - SCHIZOPHRENIA, UNSPECIFIED Qualifiers: Schizophrenia type: unspecified Qualified Code(s): F20.9 - Schizophrenia, unspecified (10) Hypokalemia Code(s): E87.6 - HYPOKALEMIA (11) Medication noncompliance due to cognitive impairment Code(s): Z91.14 - PATIENT'S OTHER NONCOMPLIANCE WITH MEDICATION REGIMEN Assessment/Plan 03/27/2017 Preserved LV fxn, poor windows 1. Acute hypoxic/hypercapneic respiratory failure post extubation most likely related to 2. Acute on chronic class II [place] Heart Association classification diastolic left ventricular congestive heart failure in context of medication compliance 3. Chronic obstructive pulmonary disease, exacerbation 4. Probable CAD angina pectoris 5. Hypertensive cardiovascular disease 6. Diabetes mellitus 7. History of schizophrenia/bipolar disorder 8. CKD 9. Anemia 10. Exogenous obesity, OSAS suspect PLAN: 1. IV diuresis with monitor diuretic response, renal fxn and electrolytes, replete K, wean off NTG gtt 2. Transfuse pRBC to maintain Hgb>8.0 with Lasix chasers 3. Continue Coreg 12.5 bid and titrate as needed and as tolerated 4. Continue Prinivil 5 qd and titrate as needed and as tolerated 5. Continue Norvasc 10 qd 6. Continue Lipitor 40 qhs 7. Patient will eventually require myocardial perfusion imaging study to assess severity of coronary artery disease, can be performed on outpatient basis 8. Bronchodilators, oral steroids taper, bipap and O2 as per pulmonary team, DVT and GI prophylaxis, PSG as outpatient 9. Thank you for consultative opportunity
[2017-05-03] MEDS ORDERED: FUROSEMIDE 40 MG/4 ML INJECTABLE VIAL IVPUSH ONE (16:45)
[2017-05-03] MEDS: INSULIN SLIDING SCALE (NOVOLOG) 1 VIAL SQ SCH ×2 (20:11→21:56)
--- NOTE | 2017-05-03 21:21 | CONSULT ---
Consult Consult Specialty:: Pulm/CCM Reason for Consultation:: Hypoxic resp failure - History of Present Illness Chief Complaint: SOB History of Present Illness: 61yow with PMHX of HTN, HLD, DMII, CHF, COPD, hepatitis C, CKD, schizophrenia/ bipolar disorder who was brought in from home by EMS with c/o SOB. Her O2 sat improved from 80's to 90's on BiPAP. Pt has had multiple hospitalizations for respiratory distress most recent in 04/13/17 where she was treated for CHF exacerbation and discharged on 04/25/17. As per previous report pt states that she had run out of her insulin and possibly other meds. In ED VS afebrile, HR 88, RR 18, BP 149/77 O2 sat 100% on CPAP. Her intitial ABG7.34, 54, 64, 91% in BiPAP 18/5, 50%. Labs notable for WBC 7.1, Hgb 7.4, lactate 0.9, BNP 2042, trop 0.02. CXR with diffuse fluffy opacities c/w congestion with possible BLL consolidations. She denied chest pain, fever, cough , lightheadedness. She was given lasix IV and started on Nitro drip and transferred to ICU for further management. 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 Cardio/Vascular: Yes: HTN Pulmonary: Yes: COPD Renal/: Yes: Renal Inusuff Infectious Disease: Yes: Other (HCV) Psych: Yes: Bipolar, Schizophrenia Endocrine: Yes: Diabetes Mellitus - Past Surgical History Past Surgical History: Yes: Hysterectomy - Alcohol/Substance Use Hx Alcohol Use: No History of Substance Use: reports: None - Smoking History Smoking history: Never smoked Have you smoked in the past 12 months: Yes Aproximately how many cigarettes per day: 4 - Social History Usual Living Arrangement: Alone ADL: Support Services History of Recent Travel: No Home Medications - Allergies Allergies/Adverse Reactions: Allergies Allergy/AdvReac Type Severity Reaction Status Date / Time ibuprofen [From Motrin IB] Allergy Verified 05/03/17 13:05 metformin Allergy Verified 05/03/17 13:05 Penicillins Allergy Verified 05/03/17 13:05 - Home Medications Home Medications: Ambulatory Orders Escitalopram Oxalate [Lexapro -] 20 mg PO DAILY 09/14/15 Olanzapine [Zyprexa -] 10 mg PO BID 09/14/15 Aspirin Coated [Ecotrin -] 81 mg PO DAILY #30 tablet.ec 09/16/15 Amlodipine Besylate [Norvasc -] 10 mg PO DAILY 02/25/16 Carvedilol [Coreg -] 12.5 mg PO BID 02/25/16 Hydralazine HCl [Apresoline -] 50 mg PO TID 02/25/16 Albuterol Sulfate Inhaler - [Ventolin HFA Inhaler -] 2 inh PO Q4H PRN #1 inh Ferrous Sulfate [Feosol] 325 mg PO DAILY #14 ud 03/29/17 Lisinopril [Prinivil] 5 mg PO DAILY #14 tablet 03/29/17 Atorvastatin Ca [Lipitor] 40 mg PO DAILY 04/01/17 Cefuroxime Axetil [Ceftin -] 500 mg PO BID #8 tablet 04/24/17 Insulin (Novolog) [Novolog Flexpen] See Protocol SQ ACHS #1 pen 04/24/17 Miscellaneous Medical Supply [Glucometer Device] 1 each NR ASDIR #1 kit Miscellaneous Medical Supply [Glucometer Test Strips #100] 1 each NR ASDIR #1 box 04/24/17 Furosemide [Lasix] 40 mg PO DAILY #30 tablet 04/25/17 Insulin (Levemir) [Levemir Flexpen -] 14 units SQ HS #1 pen 04/25/17 Prednisone 10 mg PO DAILY #3 tablet 04/25/17 Family Disease History - Family Disease History Family Disease History: Heart Disease: Father ( in 40s) Review of Systems Unable to obtain ROS, reason: unable Physical Exam Vital Signs: Vital Signs Temperature Pulse Rate 89 05/03/17 18:50 Respiratory Rate 20 05/03/17 18:50 Blood Pressure 130/81 05/03/17 18:50 O2 Sat by Pulse Oximetry (%) 93 L 05/03/17 19:15 Constitutional: Yes: No Distress, Anxious, Obese Eyes: Yes: PERRL HENT: Yes: Atraumatic Neck: Yes: Supple Cardiovascular: Yes: Pulse Irregular, S1, S2 Respiratory: Yes: On BiPap, Rhonchi Renal/: Yes: [place] Present Edema: Yes Edema: LLE: Trace, RLE: Trace Peripheral Pulses WNL: Yes Neurological: Yes: Lethargy Psychiatric: Yes: Oriented Labs: CBC, BMP 05/03/17 13:18 05/03/17 13:18 CBC,CMP WBC 7.1 K/mm3 (4.0-10.0) 05/03/17 13:18 RBC 3.04 M/mm3 (3.60-5.2) L 05/03/17 13:18 Hgb 7.4 GM/dL (10.7-15.3) L D 05/03/17 13:18 Hct 25.4 % (32.4-45.2) L 05/03/17 13:18 MCV 83.3 fl (80-96) 05/03/17 13:18 MCH 24.3 pg (25.7-33.7) L 05/03/17 13:18 MCHC 29.2 g/dl (32.0-36.0) L 05/03/17 13:18 RDW 24.2 % (11.6-15.6) H D 05/03/17 13:18 Plt Count 182 K/MM3 (134-434) D 05/03/17 13:18 MPV 7.4 fl (7.5-11.1) L 05/03/17 13:18 Neutrophils % 74.6 % (42.8-82.8) 05/03/17 13:18 Lymphocytes % 16.1 % (8-40) D 05/03/17 13:18 Monocytes % 8.7 % (3.8-10.2) 05/03/17 13:18 Eosinophils % 0.4 % (0-4.5) D 05/03/17 13:18 Basophils % 0.2 % (0-2.0) 05/03/17 13:18 Sodium 142 mmol/L (136-145) 05/03/17 13:18 Potassium 3.4 mmol/L (3.5-5.1) L 05/03/17 13:18 Chloride 103 mmol/L (98-107) D 05/03/17 13:18 Carbon Dioxide 29 mmol/L (21-32) D 05/03/17 13:18 Anion Gap 10 (8-16) 05/03/17 13:18 BUN 25 mg/dL (7-18) H D 05/03/17 13:18 Creatinine 1.5 mg/dL (0.55-1.02) H 05/03/17 13:18 Creat Clearance w eGFR 35.19 (>60) 05/03/17 13:18 POC Glucometer 243.60252 UNITS (80-120) 05/03/17 19:06 Random Glucose 238 mg/dL (74-106) H D 05/03/17 13:18 Lactic Acid 0.9 mmol/L (0.4-2.0) 05/03/17 13:40 Calcium 8.1 mg/dL (8.5-10.1) L 05/03/17 13:18 Total Bilirubin 0.8 mg/dL (0.2-1.0) D 05/03/17 13:18 AST 22 U/L (15-37) D 05/03/17 13:18 ALT 41 U/L (12-78) D 05/03/17 13:18 Alkaline Phosphatase 130 U/L (45-117) H 05/03/17 13:18 Creatine Kinase 44 IU/L (26-192) 05/03/17 13:18 Troponin I 0.02 ng/ml (0.00-0.05) 05/03/17 13:18 B-Natriuretic Peptide 2042.55 pg/ml (5-125) H 05/03/17 13:18 Total Protein 7.1 g/dl (6.4-8.2) 05/03/17 13:18 Albumin 3.1 g/dl (3.4-5.0) L 05/03/17 13:18 ABG Results ABG pH 7.34 (7.35-7.45) L 05/03/17 14:32 ABG pCO2 at Pt Temp 54.0 mmHg (35-45) H 05/03/17 14:32 ABG pO2 at Pt Temp 64.7 mmHg (80-100) L D 05/03/17 14:32 ABG HCO3 28.1 meq/L (22-26) H 05/03/17 14:32 ABG O2 Sat (Measured) 91.4 % (90-98.9) 05/03/17 14:32 ABG O2 Content 8.8 % vol (15-22) L* 05/03/17 14:32 ABG Base Excess 2.5 meq/l (-2-2) H 05/03/17 14:32 Vital Signs Period Temp Pulse Resp BP Sys/Osei Pulse Ox Last 24 Hr 98.7 F 88-93 18-28 129-149/74-90 90-100 Current Medications Amlodipine Besylate (Norvasc -) 10 mg PO DAILY [facility] Aspirin (Ecotrin -) 81 mg PO DAILY [facility] Atorvastatin Calcium (Lipitor -) 40 mg PO HS [facility] Carvedilol (Coreg -) 12.5 mg PO BID [facility] Chlorhexidine Gluconate (Hibiclens For Decolonization -) 1 applic TP HS [facility] Escitalopram Oxalate (Lexapro -) 20 mg PO DAILY [facility] Furosemide (Lasix Injection -) 40 mg IVPUSH DAILY [facility] Heparin Sodium (Porcine) (Heparin -) 5,000 unit SQ TID [facility] Hydralazine HCl (Apresoline -) 50 mg PO TID [facility] Nitroglycerin/Dextrose (Nitroglycerin 25mg/D5w 250ml) 25 mg in 250 mls @ 30 mls /hr IVPB TITR [facility] PRN Reason: 50 MCG/MIN Last Admin: 05/03/17 13:48 Dose: 50 mcg/min, 30 mls/hr Insulin Aspart (Novolog Vial Sliding Scale -) 1 vial SQ ACHS [facility] PRN Reason: Protocol Last Admin: 05/03/17 20:11 Dose: 4 units Insulin Detemir (Levemir Vial) 14 units SQ HS [facility] Lisinopril (Prinivil) 5 mg PO DAILY [facility] Mupirocin (Bactroban Ointment (For Decolonization) -) 1 applic NS BID [facility] Stop: 05/08/17 21:59 Olanzapine (Zyprexa -) 10 mg PO BID [facility] Imaging - Results Chest X-ray: Report Reviewed, Image Reviewed Problem List - Problems (1) Medication noncompliance due to cognitive impairment Code(s): Z91.14 - PATIENT'S OTHER NONCOMPLIANCE WITH MEDICATION REGIMEN (2) CHF (congestive heart failure) Code(s): I50.9 - HEART FAILURE, UNSPECIFIED (3) Acute on chronic diastolic (congestive) heart failure Code(s): I50.33 - ACUTE ON CHRONIC DIASTOLIC (CONGESTIVE) HEART FAILURE (4) Acute respiratory failure with hypoxia and hypercapnia Code(s): J96.01 - ACUTE RESPIRATORY FAILURE WITH HYPOXIA; J96.02 - ACUTE RESPIRATORY FAILURE WITH HYPERCAPNIA (5) COPD exacerbation Code(s): J44.1 - CHRONIC OBSTRUCTIVE PULMONARY DISEASE W (ACUTE) EXACERBATION (6) Leg edema Code(s): R60.0 - LOCALIZED EDEMA (7) Anxiety Code(s): F41.9 - ANXIETY DISORDER, UNSPECIFIED (8) Chronic kidney insufficiency Code(s): N18.9 - CHRONIC KIDNEY DISEASE, UNSPECIFIED Qualifiers: Chronic kidney disease stage: unspecified stage Qualified Code(s): N18.9 - Chronic kidney disease, unspecified (9) Chronic pain Code(s): G89.29 - OTHER CHRONIC PAIN Qualifiers: Chronic pain type: other chronic pain Qualified Code(s): G89.29 - Other chronic pain Assessment/Plan 61yow with PMHX of HTN, HLD, DMII, CHF, COPD, hepatitis C, CKD, schizophrenia/ bipolar disorder who was brought in from home by EMS with c/o SOB m/l 2/2 CHF exacerbation COPD exacerbation in setting of medication non-compliance. Plan: Hypoxic resp failure, CHF exacerbation -Cont BiPAP support for o2 sat >92%; wean as able -Lasix diuresis for goal net negative -Nitro drip for BP management. Wean as jem -TTE -Monitor BNP, Trop -Cont Nebs -no indication for antibiotics at this time -Cont antihypertensives and statins -BG check q6 -Cont DMII regimen -Monitor UOP and BMP -Replete electrolytes -DVT and GI prophylaxis Dusty Griffin, VAS[facility] time 35mins
[2017-05-03 21:24] VITALS: BMI 41.8
[2017-05-03] MEDS: ATORVASTATIN CA 40 MG TABLET (FP) PO SCH (21:48)
[2017-05-03] MEDS: MUPIROCIN 2% TOPICAL OINTMENT FOR DECOLONIZATION NS SCH (21:48)
[2017-05-03] MEDS: CHLORHEXIDINE GLUCONATE 4% CLEANSER FOR DECOLONIZATION TP SCH (21:48)
[2017-05-03] MEDS: hydrALAZINE HCL 25 MG TABLET (FP) PO SCH ×2 (21:48→21:54)
[2017-05-03] MEDS: HEPARIN NA (PORCINE) 5,000 UNITS/ML 1ML VIAL SQ SCH (21:48)
[2017-05-03] MEDS: CARVEDILOL 12.5 MG TABLET (FP) PO SCH (21:52)
[2017-05-03] MEDS: OLANZapine 10 MG TABLET PO SCH (21:52)
[2017-05-03] MEDS ORDERED: FUROSEMIDE 40 MG/4 ML INJECTABLE VIAL ONE (21:55)
[2017-05-03] MEDS: INSULIN DETEMIR 100 UNITS/ML MDV SQ SCH (21:56)
[2017-05-03] MEDS ORDERED: KCL 10 MEQ IVPB 10 MEQ/100 ML INFUS.BAG IVPB SCH (23:45)
[2017-05-04] MEDS: POTASSIUM CHLORIDE 10 MEQ in SODIUM CHLORIDE 100 ML IVPB SCH ×2 (01:00→02:50)
[2017-05-04 06:07] LABS: ARTERIAL BLD GAS O2 SATURATION 93.7 % (90-98.9); ARTERIAL BLOOD GAS BASE EXCESS 5.3 meq/l (-2-2); ARTERIAL BLOOD GAS PCO2 57.7 mmHg (35-45); ARTERIAL BLOOD GAS PO2 69.7 mmHg (80-100); ARTERIAL BLOOD GAS pH 7.35 (7.35-7.45)
[2017-05-04 06:08] LABS: ALLENS TEST POSITIVE
[2017-05-04 06:23] LABS: BASO % 0.5 % (0-2.0); EOS % 1.1 % (0-4.5); HEMATOCRIT 22.4 % (32.4-45.2); LYMPH % 23.3 % (8-40); MCH 24.9 pg (25.7-33.7); MEAN CELL VOLUME 83.1 fl (80-96); MEAN PLT VOLUME 7.8 fl (7.5-11.1); MONO % 9.6 % (3.8-10.2); NEUT % 65.5 % (42.8-82.8); PLATELET COUNT 196 K/MM3 (134-434); RDW 24.1 % (11.6-15.6)
[2017-05-04] MEDS: ALBUTEROL SO4 2.5/IPRATROPIUM 0.5 INH SOL 3 ML VIAL.NEB. NEB PRN (06:28)
[2017-05-04] MEDS: hydrALAZINE HCL 25 MG TABLET (FP) PO SCH ×3 (06:30→21:55)
[2017-05-04] MEDS: INSULIN SLIDING SCALE (NOVOLOG) 1 VIAL SQ SCH ×4 (06:31→21:53)
[2017-05-04] MEDS: HEPARIN NA (PORCINE) 5,000 UNITS/ML 1ML VIAL SQ SCH ×3 (06:31→21:58)
[2017-05-04 06:48] LABS: CHLORIDE 107 mmol/L (98-107); POTASSIUM 3.2 mmol/L (3.5-5.1); SODIUM 143 mmol/L (136-145)
[2017-05-04 06:49] LABS: HEMOGLOBIN 6.7 GM/dL (10.7-15.3)
[2017-05-04 06:55] LABS: ALBUMIN 2.5 g/dl (3.4-5.0); ALK PHOS 92 U/L (45-117); ANION GAP 5 (8-16); BILIRUBIN,TOTAL 0.6 mg/dL (0.2-1.0); BLOOD UREA NITROGEN 20 mg/dL (7-18); CALCIUM 7.5 mg/dL (8.5-10.1); CO2 31 mmol/L (21-32); CREATININE 1.2 mg/dL (0.55-1.02); GLUCOSE,RANDOM 122 mg/dL (74-106); MAGNESIUM 1.8 mg/dL (1.8-2.4); PHOSPHOROUS 3.3 mg/dL (2.5-4.9); SGOT/AST 15 U/L (15-37); SGPT/ALT 31 U/L (12-78); TOT PROT 5.7 g/dl (6.4-8.2)
--- NOTE | 2017-05-04 08:05 | PN ---
Physical Exam: SUBJECTIVE: Patient on BiPap currently and remains somnolent. Reacts to verbal stimulus, but only becomes less somnolent with palpation. OBJECTIVE: Vital Signs Period Temp Pulse Resp BP Sys/Osei Pulse Ox Last 24 Hr 98.3 F-99.1 F 80-93 18-28 122-149/68-90 90-100 GENERAL: Somnolent, alert, and fully oriented HEENT: NC/AT, No JVD, sclera anicteric LUNGS: ? Wheezes noted in anterior napoles bilaterally, no accessory muscle use. On BiPap HEART: RRR, S1, S2 without murmur ABDOMEN: Soft, nontender, nondistended, normoactive bowel sounds, no guarding, no hepatomegaly EXTREMITIES: 2+ DP pulses, warm, 1+ pitting edema. SKIN: Warm, dry, no rashes or lesions noted Laboratory Results - last 24 hr 05/03/17 05/03/17 05/03/17 13:18 13:18 13:18 WBC 7.1 RBC 3.04 L Hgb 7.4 L D Hct 25.4 L MCV 83.3 MCH 24.3 L MCHC 29.2 L RDW 24.2 H D Plt Count 182 D MPV 7.4 L Neutrophils % 74.6 Lymphocytes % 16.1 D Monocytes % 8.7 Eosinophils % 0.4 D Basophils % 0.2 PT with INR 11.60 INR 1.03 PTT (Actin FS) 26.4 L Anticoagulation Therapy Puncture Site ABG pH ABG pCO2 at Pt Temp ABG pO2 at Pt Temp ABG HCO3 ABG O2 Sat (Measured) ABG O2 Content ABG Base Excess Good Test Carboxyhemoglobin Methemoglobin O2 Delivery Device Oxygen Flow Rate Vent Mode Vent Rate Mechanical Rate PEEP Pressure Support Vent Sodium Potassium Chloride Carbon Dioxide Anion Gap BUN Creatinine Creat Clearance w eGFR POC Glucometer Random Glucose Lactic Acid Calcium Phosphorus Magnesium Total Bilirubin AST ALT Alkaline Phosphatase Creatine Kinase 44 Troponin I 0.02 B-Natriuretic Peptide 2042.55 H Total Protein Albumin Urine Color Urine Appearance Urine pH Ur Specific [place] Urine Protein Urine Glucose (UA) Urine Ketones Urine Blood Urine Nitrite Urine Bilirubin Urine Urobilinogen Ur Leukocyte Esterase Urine WBC (Auto) Urine RBC (Auto) Ur Epithelial Cells Urine Bacteria Hyaline Casts Urine Mucus Acetone, Qual Blood Type Antibody Screen Prewarmed Antibody Srcn Antibody Identification Antigen Identification Crossmatch 05/03/17 05/03/17 05/03/17 13:18 13:18 13:30 WBC RBC Hgb Hct MCV MCH MCHC RDW Plt Count MPV Neutrophils % Lymphocytes % Monocytes % Eosinophils % Basophils % PT with INR INR PTT (Actin FS) Anticoagulation Therapy No Result Required. Puncture Site Left radial ABG pH 7.35 ABG pCO2 at Pt Temp 51.7 H D ABG pO2 at Pt Temp 40.2 L* D ABG HCO3 27.9 H ABG O2 Sat (Measured) 70.4 L* ABG O2 Content 7.0 L* ABG Base Excess 2.5 H Good Test Positive Carboxyhemoglobin 3.8 H Methemoglobin 1.1 O2 Delivery Device Bipap Oxygen Flow Rate 45 Vent Mode S/t Vent Rate 10 Mechanical Rate No Result Required. PEEP 0.0 Pressure Support Vent Ipap/epaps Sodium 142 Potassium 3.4 L Chloride 103 D Carbon Dioxide 29 D Anion Gap 10 BUN 25 H D Creatinine 1.5 H Creat Clearance w eGFR 35.19 POC Glucometer Random Glucose 238 H D Lactic Acid Calcium 8.1 L Phosphorus Magnesium Total Bilirubin 0.8 D AST 22 D ALT 41 D Alkaline Phosphatase 130 H Creatine Kinase Troponin I B-Natriuretic Peptide Total Protein 7.1 Albumin 3.1 L Urine Color Urine Appearance Urine pH Ur Specific [place] Urine Protein Urine Glucose (UA) Urine Ketones Urine Blood Urine Nitrite Urine Bilirubin Urine Urobilinogen Ur Leukocyte Esterase Urine WBC (Auto) Urine RBC (Auto) Ur Epithelial Cells Urine Bacteria Hyaline Casts Urine Mucus Acetone, Qual Negative L Blood Type Antibody Screen Prewarmed Antibody Srcn Antibody Identification Antigen Identification Crossmatch 05/03/17 05/03/17 05/03/17 13:40 14:02 14:02 WBC RBC Hgb Hct MCV MCH MCHC RDW Plt Count MPV Neutrophils % Lymphocytes % Monocytes % Eosinophils % Basophils % PT with INR INR PTT (Actin FS) Anticoagulation Therapy Puncture Site ABG pH ABG pCO2 at Pt Temp ABG pO2 at Pt Temp ABG HCO3 ABG O2 Sat (Measured) ABG O2 Content ABG Base Excess Good Test Carboxyhemoglobin Methemoglobin O2 Delivery Device Oxygen Flow Rate Vent Mode Vent Rate Mechanical Rate PEEP Pressure Support Vent Sodium Potassium Chloride Carbon Dioxide Anion Gap BUN Creatinine Creat Clearance w eGFR POC Glucometer Random Glucose Lactic Acid 0.9 Calcium Phosphorus Magnesium Total Bilirubin AST ALT Alkaline Phosphatase Creatine Kinase Troponin I B-Natriuretic Peptide Total Protein Albumin Urine Color Yellow Urine Appearance Clear Urine pH 5.0 Ur Specific [place] 1.012 Urine Protein 1+ H Urine Glucose (UA) Negative Urine Ketones Negative Urine Blood Negative Urine Nitrite Positive Urine Bilirubin Negative Urine Urobilinogen 2.0 H Ur Leukocyte Esterase Negative Urine WBC (Auto) 1 Urine RBC (Auto) <1 Ur Epithelial Cells Rare Urine Bacteria Many Hyaline Casts 4 Urine Mucus Rare Acetone, Qual Blood Type Cancelled Antibody Screen Cancelled Prewarmed Antibody Srcn Antibody Identification Antigen Identification Crossmatch See Detail 05/03/17 05/03/17 05/03/17 14:32 16:06 19:06 WBC RBC Hgb Hct MCV MCH MCHC RDW Plt Count MPV Neutrophils % Lymphocytes % Monocytes % Eosinophils % Basophils % PT with INR INR PTT (Actin FS) Anticoagulation Therapy No Result Required. Puncture Site Left radial ABG pH 7.34 L ABG pCO2 at Pt Temp 54.0 H ABG pO2 at Pt Temp 64.7 L D ABG HCO3 28.1 H ABG O2 Sat (Measured) 91.4 ABG O2 Content 8.8 L* ABG Base Excess 2.5 H Good Test Positive Carboxyhemoglobin 3.7 H Methemoglobin 0.9 O2 Delivery Device Bipap Oxygen Flow Rate 45 Vent Mode S/t Vent Rate 10 Mechanical Rate Yes PEEP 0.0 Pressure Support Vent Ipap18/[id number] Sodium Potassium Chloride Carbon Dioxide Anion Gap BUN Creatinine Creat Clearance w eGFR POC Glucometer [phone] Random Glucose Lactic Acid Calcium Phosphorus Magnesium Total Bilirubin AST ALT Alkaline Phosphatase Creatine Kinase Troponin I B-Natriuretic Peptide Total Protein Albumin Urine Color Urine Appearance Urine pH Ur Specific [place] Urine Protein Urine Glucose (UA) Urine Ketones Urine Blood Urine Nitrite Urine Bilirubin Urine Urobilinogen Ur Leukocyte Esterase Urine WBC (Auto) Urine RBC (Auto) Ur Epithelial Cells Urine Bacteria Hyaline Casts Urine Mucus Acetone, Qual Blood Type O POSITIVE Antibody Screen Positive H Prewarmed Antibody Srcn Negative Antibody Identification Cancelled Antigen Identification Cancelled Crossmatch See Detail 05/03/17 05/04/17 05/04/17 21:52 05:15 05:15 WBC 5.0 RBC 2.70 L Hgb 6.7 L* Hct 22.4 L MCV 83.1 MCH 24.9 L MCHC 30.0 L RDW 24.1 H Plt Count 196 MPV 7.8 Neutrophils % 65.5 Lymphocytes % 23.3 D Monocytes % 9.6 Eosinophils % 1.1 D Basophils % 0.5 PT with INR INR PTT (Actin FS) Anticoagulation Therapy Puncture Site ABG pH ABG pCO2 at Pt Temp ABG pO2 at Pt Temp ABG HCO3 ABG O2 Sat (Measured) ABG O2 Content ABG Base Excess Good Test Carboxyhemoglobin Methemoglobin O2 Delivery Device Oxygen Flow Rate Vent Mode Vent Rate Mechanical Rate PEEP Pressure Support Vent Sodium 143 Potassium 3.2 L Chloride 107 Carbon Dioxide 31 Anion Gap 5 L BUN 20 H Creatinine 1.2 H Creat Clearance w eGFR 45.52 POC Glucometer [phone] Random Glucose 122 H D Lactic Acid Calcium 7.5 L Phosphorus 3.3 D Magnesium 1.8 Total Bilirubin 0.6 D AST 15 D ALT 31 D Alkaline Phosphatase 92 D Creatine Kinase Troponin I B-Natriuretic Peptide Total Protein 5.7 L Albumin 2.5 L Urine Color Urine Appearance Urine pH Ur Specific [place] Urine Protein Urine Glucose (UA) Urine Ketones Urine Blood Urine Nitrite Urine Bilirubin Urine Urobilinogen Ur Leukocyte Esterase Urine WBC (Auto) Urine RBC (Auto) Ur Epithelial Cells Urine Bacteria Hyaline Casts Urine Mucus Acetone, Qual Blood Type Antibody Screen Prewarmed Antibody Srcn Antibody Identification Antigen Identification Crossmatch 05/04/17 05/04/17 05:35 06:23 WBC RBC Hgb Hct MCV MCH MCHC RDW Plt Count MPV Neutrophils % Lymphocytes % Monocytes % Eosinophils % Basophils % PT with INR INR PTT (Actin FS) Anticoagulation Therapy Puncture Site Left radial ABG pH 7.35 ABG pCO2 at Pt Temp 57.7 H ABG pO2 at Pt Temp 69.7 L ABG HCO3 30.9 H ABG O2 Sat (Measured) 93.7 ABG O2 Content 8.3 L* ABG Base Excess 5.3 H Good Test Positive Carboxyhemoglobin Methemoglobin O2 Delivery Device Bipap Oxygen Flow Rate 45% Vent Mode S/t Vent Rate 10 Mechanical Rate PEEP Pressure Support Vent 18/5 Sodium Potassium Chloride Carbon Dioxide Anion Gap BUN Creatinine Creat Clearance w eGFR POC Glucometer [phone] Random Glucose Lactic Acid Calcium Phosphorus Magnesium Total Bilirubin AST ALT Alkaline Phosphatase Creatine Kinase Troponin I B-Natriuretic Peptide Total Protein Albumin Urine Color Urine Appearance Urine pH Ur Specific [place] Urine Protein Urine Glucose (UA) Urine Ketones Urine Blood Urine Nitrite Urine Bilirubin Urine Urobilinogen Ur Leukocyte Esterase Urine WBC (Auto) Urine RBC (Auto) Ur Epithelial Cells Urine Bacteria Hyaline Casts Urine Mucus Acetone, Qual Blood Type Antibody Screen Prewarmed Antibody Srcn Antibody Identification Antigen Identification Crossmatch Active Medications Generic Name Dose Route Start Last Admin Trade Name Freq PRN Reason Stop Dose Admin Albuterol/Ipratropium 1 amp 05/03/17 21:57 05/04/17 06:28 Duoneb - NEB 1 amp Q6H PRN Administration SHORTNESS OF BREATH Amlodipine Besylate 10 mg 05/04/17 10:00 Norvasc - PO DAILY [facility] Aspirin 81 mg 05/04/17 10:00 Ecotrin - PO DAILY [facility] Atorvastatin Calcium 40 mg 05/03/17 22:00 05/03/17 21:48 Lipitor - PO 40 mg HS [facility] Administration Carvedilol 12.5 mg 05/03/17 22:00 05/03/17 21:52 Coreg - PO Not Given BID [facility] Chlorhexidine Gluconate 1 applic 05/03/17 22:00 05/03/17 21:48 Hibiclens For Decolonization - TP 1 applic HS [facility] Administration Escitalopram Oxalate 20 mg 05/04/17 10:00 Lexapro - PO DAILY [facility] Furosemide 40 mg 05/04/17 10:00 Lasix Injection - IVPUSH DAILY [facility] Heparin Sodium (Porcine) 5,000 unit 05/03/17 22:00 05/04/17 06:31 Heparin - SQ 5,000 unit TID [facility] Administration Hydralazine HCl 50 mg 05/03/17 22:00 05/04/17 06:30 Apresoline - PO Not Given TID [facility] Nitroglycerin/Dextrose 25 mg in 250 mls @ 30 mls/hr 05/03/17 13:15 05/04/17 06:40 Nitroglycerin 25mg/D5w 250ml IVPB 20 mcg/min TITR JOSLYN 12 mls/hr 50 MCG/MIN Titration Insulin Aspart 1 vial 05/03/17 16:30 05/04/17 06:31 Novolog Vial Sliding Scale - SQ 2 units ACHS [facility] Administration Protocol Insulin Detemir 14 units 05/03/17 22:00 05/03/17 21:56 Levemir Vial SQ 14 units HS [facility] Administration Lisinopril 5 mg 05/04/17 10:00 Prinivil PO DAILY [facility] Mupirocin 1 applic 05/03/17 22:00 05/03/17 21:48 Bactroban Ointment (For Decolonization) - NS 05/08/17 21:59 1 applic BID JOSLYN Administration Olanzapine 10 mg 05/03/17 22:00 05/03/17 21:52 Zyprexa - PO Not Given BID [facility] Potassium Chloride 40 meq 05/04/17 10:00 Potassium Chloride Oral Liquid PO BID [facility] ASSESSMENT/PLAN: 61yo F with history of diastolic CHF, COPD, DM, morbid obesity, HTN, HLD, schizophrenia/bipolar disorder with frequent admissions for hypoxic respiratory failure. This admission acute on chronic CHF exacerbation compared to COPD exacerbation on previous 1) Acute hypoxic respiratory failure --2/2 CHF exacerbation --Continue BiPap --Maintain SpO2>90% --ABG showing 53 CO2 which is baseline for this chronic retainer 2) Acute on chronic diastolic CHF --Recent echo noted --Not reliable with home medications --Continue Nitro gtt --Begin to taper down as tolerated --Lasix 40mg IVP --Continue home Coreg 12.5mg BID --Continue ASA 81mg --Continue Lipitor 40mg HS 3) Acute anemia --No overt signs of bleeding --Previously pt has refused colonoscopy and GI work-up on previous hospital admission --S/P 1U PRBC (give lasix push dose after each unit to avoid increased fluid overload) --Rpt CBC; monitor H/H 4) DM --Most likely 2/2 to steroids with this acute rise --Continue Levemir 14U HS --ISS --BGM ACHS 5) HTN --Currently controlled; continue meds as above 6) Schizophrenia vs. Bipolar disorder --Continue Zyprexa --Continue Lexapro FEN: Fluids: Avoid due to volume overload Electrolyte abnormalities: Hypokalemia (replete with KDur as needed0 Nutrition: NPO except meds with use of BiPap; can advance to PPX DVT - Heparin SQ TID; mod risk GI - Protonix due to steroid use Dispo: Can downgrade from ICU if improves Case discussed with Dr. Richard Reed, DO - Internal Medicine PGY-1 Visit type - Emergency Visit Emergency Visit: No - New Patient This patient is new to me today: No - Critical Care Critical Care patient: No
--- NOTE | 2017-05-04 08:18 | PN ---
Physical Exam: SUBJECTIVE: Patient seen and examined. Was on bipap and still somnolent when seen this am. Does not use home oxygen because she is a current smoker. Was receiving 1st unit of blood. OBJECTIVE: Vital Signs Period Temp Pulse Resp BP Sys/Osei Pulse Ox Last 24 Hr 98.3 F-99.1 F 80-93 18-28 122-149/68-90 90-100 Intake & Output 05/01/17 05/02/17 05/03/17 05/04/17 23:59 23:59 23:59 23:59 Intake Total 450 Output Total 900 1100 Balance -900 -650 Weight 110.705 kg GENERAL: The patient is drowsy but arousable, on Bipap- IPAP-18, EPAP-5, fio2-45 %, RR-10% HEAD: Normal with no signs of trauma. EYES: sclera anicteric, conjunctiva clear. ENT: On bipap NECK: supple. LUNGS: Bilateral fine creps HEART: Regular rate and rhythm, S1, S2 ABDOMEN: Soft, nontender, nondistended, normoactive bowel sounds EXTREMITIES: 2+ pulses, warm, well-perfused, mild edema. NEUROLOGICAL: Drowsy but arousable PSYCH: Dis not assess CBC, BMP 05/04/17 13:07 05/04/17 05:15 ABG Results ABG pH 7.35 (7.35-7.45) 05/04/17 05:35 ABG pCO2 at Pt Temp 57.7 mmHg (35-45) H 05/04/17 05:35 ABG pO2 at Pt Temp 69.7 mmHg (80-100) L 05/04/17 05:35 ABG HCO3 30.9 meq/L (22-26) H 05/04/17 05:35 ABG O2 Sat (Measured) 93.7 % (90-98.9) 05/04/17 05:35 ABG O2 Content 8.3 % vol (15-22) L* 05/04/17 05:35 ABG Base Excess 5.3 meq/l (-2-2) H 05/04/17 05:35 Laboratory Results - last 24 hr 05/03/17 05/03/17 05/03/17 13:18 13:18 13:18 WBC 7.1 RBC 3.04 L Hgb 7.4 L D Hct 25.4 L MCV 83.3 MCH 24.3 L MCHC 29.2 L RDW 24.2 H D Plt Count 182 D MPV 7.4 L Neutrophils % 74.6 Lymphocytes % 16.1 D Monocytes % 8.7 Eosinophils % 0.4 D Basophils % 0.2 PT with INR 11.60 INR 1.03 PTT (Actin FS) 26.4 L Anticoagulation Therapy Puncture Site ABG pH ABG pCO2 at Pt Temp ABG pO2 at Pt Temp ABG HCO3 ABG O2 Sat (Measured) ABG O2 Content ABG Base Excess Good Test Carboxyhemoglobin Methemoglobin O2 Delivery Device Oxygen Flow Rate Vent Mode Vent Rate Mechanical Rate PEEP Pressure Support Vent Sodium Potassium Chloride Carbon Dioxide Anion Gap BUN Creatinine Creat Clearance w eGFR POC Glucometer Random Glucose Lactic Acid Calcium Phosphorus Magnesium Total Bilirubin AST ALT Alkaline Phosphatase Creatine Kinase 44 Troponin I 0.02 B-Natriuretic Peptide 2042.55 H Total Protein Albumin Urine Color Urine Appearance Urine pH Ur Specific [place] Urine Protein Urine Glucose (UA) Urine Ketones Urine Blood Urine Nitrite Urine Bilirubin Urine Urobilinogen Ur Leukocyte Esterase Urine WBC (Auto) Urine RBC (Auto) Ur Epithelial Cells Urine Bacteria Hyaline Casts Urine Mucus Acetone, Qual Blood Type Antibody Screen Prewarmed Antibody Srcn Antibody Identification Antigen Identification Crossmatch 05/03/17 05/03/17 05/03/17 13:18 13:18 13:30 WBC RBC Hgb Hct MCV MCH MCHC RDW Plt Count MPV Neutrophils % Lymphocytes % Monocytes % Eosinophils % Basophils % PT with INR INR PTT (Actin FS) Anticoagulation Therapy No Result Required. Puncture Site Left radial ABG pH 7.35 ABG pCO2 at Pt Temp 51.7 H D ABG pO2 at Pt Temp 40.2 L* D ABG HCO3 27.9 H ABG O2 Sat (Measured) 70.4 L* ABG O2 Content 7.0 L* ABG Base Excess 2.5 H Good Test Positive Carboxyhemoglobin 3.8 H Methemoglobin 1.1 O2 Delivery Device Bipap Oxygen Flow Rate 45 Vent Mode S/t Vent Rate 10 Mechanical Rate No Result Required. PEEP 0.0 Pressure Support Vent Ipap/epaps Sodium 142 Potassium 3.4 L Chloride 103 D Carbon Dioxide 29 D Anion Gap 10 BUN 25 H D Creatinine 1.5 H Creat Clearance w eGFR 35.19 POC Glucometer Random Glucose 238 H D Lactic Acid Calcium 8.1 L Phosphorus Magnesium Total Bilirubin 0.8 D AST 22 D ALT 41 D Alkaline Phosphatase 130 H Creatine Kinase Troponin I B-Natriuretic Peptide Total Protein 7.1 Albumin 3.1 L Urine Color Urine Appearance Urine pH Ur Specific [place] Urine Protein Urine Glucose (UA) Urine Ketones Urine Blood Urine Nitrite Urine Bilirubin Urine Urobilinogen Ur Leukocyte Esterase Urine WBC (Auto) Urine RBC (Auto) Ur Epithelial Cells Urine Bacteria Hyaline Casts Urine Mucus Acetone, Qual Negative L Blood Type Antibody Screen Prewarmed Antibody Srcn Antibody Identification Antigen Identification Crossmatch 05/03/17 05/03/17 05/03/17 13:40 14:02 14:02 WBC RBC Hgb Hct MCV MCH MCHC RDW Plt Count MPV Neutrophils % Lymphocytes % Monocytes % Eosinophils % Basophils % PT with INR INR PTT (Actin FS) Anticoagulation Therapy Puncture Site ABG pH ABG pCO2 at Pt Temp ABG pO2 at Pt Temp ABG HCO3 ABG O2 Sat (Measured) ABG O2 Content ABG Base Excess Good Test Carboxyhemoglobin Methemoglobin O2 Delivery Device Oxygen Flow Rate Vent Mode Vent Rate Mechanical Rate PEEP Pressure Support Vent Sodium Potassium Chloride Carbon Dioxide Anion Gap BUN Creatinine Creat Clearance w eGFR POC Glucometer Random Glucose Lactic Acid 0.9 Calcium Phosphorus Magnesium Total Bilirubin AST ALT Alkaline Phosphatase Creatine Kinase Troponin I B-Natriuretic Peptide Total Protein Albumin Urine Color Yellow Urine Appearance Clear Urine pH 5.0 Ur Specific [place] 1.012 Urine Protein 1+ H Urine Glucose (UA) Negative Urine Ketones Negative Urine Blood Negative Urine Nitrite Positive Urine Bilirubin Negative Urine Urobilinogen 2.0 H Ur Leukocyte Esterase Negative Urine WBC (Auto) 1 Urine RBC (Auto) <1 Ur Epithelial Cells Rare Urine Bacteria Many Hyaline Casts 4 Urine Mucus Rare Acetone, Qual Blood Type Cancelled Antibody Screen Cancelled Prewarmed Antibody Srcn Antibody Identification Antigen Identification Crossmatch See Detail 05/03/17 05/03/17 05/03/17 14:32 16:06 19:06 WBC RBC Hgb Hct MCV MCH MCHC RDW Plt Count MPV Neutrophils % Lymphocytes % Monocytes % Eosinophils % Basophils % PT with INR INR PTT (Actin FS) Anticoagulation Therapy No Result Required. Puncture Site Left radial ABG pH 7.34 L ABG pCO2 at Pt Temp 54.0 H ABG pO2 at Pt Temp 64.7 L D ABG HCO3 28.1 H ABG O2 Sat (Measured) 91.4 ABG O2 Content 8.8 L* ABG Base Excess 2.5 H Good Test Positive Carboxyhemoglobin 3.7 H Methemoglobin 0.9 O2 Delivery Device Bipap Oxygen Flow Rate 45 Vent Mode S/t Vent Rate 10 Mechanical Rate Yes PEEP 0.0 Pressure Support Vent Ipap18/epap5 Sodium Potassium Chloride Carbon Dioxide Anion Gap BUN Creatinine Creat Clearance w eGFR POC Glucometer [phone] Random Glucose Lactic Acid Calcium Phosphorus Magnesium Total Bilirubin AST ALT Alkaline Phosphatase Creatine Kinase Troponin I B-Natriuretic Peptide Total Protein Albumin Urine Color Urine Appearance Urine pH Ur Specific [place] Urine Protein Urine Glucose (UA) Urine Ketones Urine Blood Urine Nitrite Urine Bilirubin Urine Urobilinogen Ur Leukocyte Esterase Urine WBC (Auto) Urine RBC (Auto) Ur Epithelial Cells Urine Bacteria Hyaline Casts Urine Mucus Acetone, Qual Blood Type O POSITIVE Antibody Screen Positive H Prewarmed Antibody Srcn Negative Antibody Identification Cancelled Antigen Identification Cancelled Crossmatch See Detail 05/03/17 05/04/17 05/04/17 21:52 05:15 05:15 WBC 5.0 RBC 2.70 L Hgb 6.7 L* Hct 22.4 L MCV 83.1 MCH 24.9 L MCHC 30.0 L RDW 24.1 H Plt Count 196 MPV 7.8 Neutrophils % 65.5 Lymphocytes % 23.3 D Monocytes % 9.6 Eosinophils % 1.1 D Basophils % 0.5 PT with INR INR PTT (Actin FS) Anticoagulation Therapy Puncture Site ABG pH ABG pCO2 at Pt Temp ABG pO2 at Pt Temp ABG HCO3 ABG O2 Sat (Measured) ABG O2 Content ABG Base Excess Good Test Carboxyhemoglobin Methemoglobin O2 Delivery Device Oxygen Flow Rate Vent Mode Vent Rate Mechanical Rate PEEP Pressure Support Vent Sodium 143 Potassium 3.2 L Chloride 107 Carbon Dioxide 31 Anion Gap 5 L BUN 20 H Creatinine 1.2 H Creat Clearance w eGFR 45.52 POC Glucometer [phone] Random Glucose 122 H D Lactic Acid Calcium 7.5 L Phosphorus 3.3 D Magnesium 1.8 Total Bilirubin 0.6 D AST 15 D ALT 31 D Alkaline Phosphatase 92 D Creatine Kinase Troponin I B-Natriuretic Peptide Total Protein 5.7 L Albumin 2.5 L Urine Color Urine Appearance Urine pH Ur Specific [place] Urine Protein Urine Glucose (UA) Urine Ketones Urine Blood Urine Nitrite Urine Bilirubin Urine Urobilinogen Ur Leukocyte Esterase Urine WBC (Auto) Urine RBC (Auto) Ur Epithelial Cells Urine Bacteria Hyaline Casts Urine Mucus Acetone, Qual Blood Type Antibody Screen Prewarmed Antibody Srcn Antibody Identification Antigen Identification Crossmatch 05/04/17 05/04/17 05:35 06:23 WBC RBC Hgb Hct MCV MCH MCHC RDW Plt Count MPV Neutrophils % Lymphocytes % Monocytes % Eosinophils % Basophils % PT with INR INR PTT (Actin FS) Anticoagulation Therapy Puncture Site Left radial ABG pH 7.35 ABG pCO2 at Pt Temp 57.7 H ABG pO2 at Pt Temp 69.7 L ABG HCO3 30.9 H ABG O2 Sat (Measured) 93.7 ABG O2 Content 8.3 L* ABG Base Excess 5.3 H Good Test Positive Carboxyhemoglobin Methemoglobin O2 Delivery Device Bipap Oxygen Flow Rate 45% Vent Mode S/t Vent Rate 10 Mechanical Rate PEEP Pressure Support Vent 18/5 Sodium Potassium Chloride Carbon Dioxide Anion Gap BUN Creatinine Creat Clearance w eGFR POC Glucometer [phone] Random Glucose Lactic Acid Calcium Phosphorus Magnesium Total Bilirubin AST ALT Alkaline Phosphatase Creatine Kinase Troponin I B-Natriuretic Peptide Total Protein Albumin Urine Color Urine Appearance Urine pH Ur Specific [place] Urine Protein Urine Glucose (UA) Urine Ketones Urine Blood Urine Nitrite Urine Bilirubin Urine Urobilinogen Ur Leukocyte Esterase Urine WBC (Auto) Urine RBC (Auto) Ur Epithelial Cells Urine Bacteria Hyaline Casts Urine Mucus Acetone, Qual Blood Type Antibody Screen Prewarmed Antibody Srcn Antibody Identification Antigen Identification Crossmatch Active Medications Generic Name Dose Route Start Last Admin Trade Name Freq PRN Reason Stop Dose Admin Albuterol/Ipratropium 1 amp 05/03/17 21:57 05/04/17 06:28 Duoneb - NEB 1 amp Q6H PRN Administration SHORTNESS OF BREATH Amlodipine Besylate 10 mg 05/04/17 10:00 Norvasc - PO DAILY [facility] Aspirin 81 mg 05/04/17 10:00 Ecotrin - PO DAILY [facility] Atorvastatin Calcium 40 mg 05/03/17 22:00 05/03/17 21:48 Lipitor - PO 40 mg HS JOSLYN Administration Carvedilol 12.5 mg 05/03/17 22:00 05/03/17 21:52 Coreg - PO Not Given BID JOSLYN Chlorhexidine Gluconate 1 applic 05/03/17 22:00 05/03/17 21:48 Hibiclens For Decolonization - TP 1 applic HS JOSLYN Administration Escitalopram Oxalate 20 mg 05/04/17 10:00 Lexapro - PO DAILY JOSLYN Furosemide 40 mg 05/04/17 10:00 Lasix Injection - IVPUSH DAILY [facility] Heparin Sodium (Porcine) 5,000 unit 05/03/17 22:00 05/04/17 06:31 Heparin - SQ 5,000 unit TID JOSLYN Administration Hydralazine HCl 50 mg 05/03/17 22:00 05/04/17 06:30 Apresoline - PO Not Given TID JOSLYN Nitroglycerin/Dextrose 25 mg in 250 mls @ 30 mls/hr 05/03/17 13:15 05/04/17 06:40 Nitroglycerin 25mg/D5w 250ml IVPB 20 mcg/min TITR JOSLYN 12 mls/hr 50 MCG/MIN Titration Insulin Aspart 1 vial 05/03/17 16:30 05/04/17 06:31 Novolog Vial Sliding Scale - SQ 2 units ACHS [facility] Administration Protocol Insulin Detemir 14 units 05/03/17 22:00 05/03/17 21:56 Levemir Vial SQ 14 units HS [facility] Administration Lisinopril 5 mg 05/04/17 10:00 Prinivil PO DAILY [facility] Mupirocin 1 applic 05/03/17 22:00 05/03/17 21:48 Bactroban Ointment (For Decolonization) - NS 05/08/17 21:59 1 applic BID JOSLYN Administration Olanzapine 10 mg 05/03/17 22:00 05/03/17 21:52 Zyprexa - PO Not Given BID [facility] Potassium Chloride 40 meq 05/04/17 10:00 Potassium Chloride Oral Liquid PO BID [facility] ASSESSMENT/PLAN: 61 yo F, with pmhx of HTN, HLD, CHF, DM II, COPD, hepatitis C, CKD, schizophrenia/bipolar disorder admitted to ICU with worsening SOB now on CPAP Neuro: Acute hypoxic respiratory failure - wean off Bipap - ICU monitoring - Monitor ABG Cardio: Acute on chronic CHF exacerbation, - s/p lasix 40mg IV in ED - Maintain nitro gtt - Give additional dose of lasix 40mg after blood - Daily weight - I/O's - Cardiology consult HTN - Stable - Continue home Hydralazine, lisinopril, norvasc, coreg Endo: DM II - Levemir 14 untis hs - ISS, BGM ACHS Psych: schizophrenia/bipolar disorder - Continue psych meds Hemonc: Acute blood loss anemia/iron deficiency anemia - receiving 1 unit packed cells now - Monitor hgb - Resume ferrous sulfate once stable Renal: CKD - Appears stable at present - Caution with fluids -Lasix in between transfusions Behavioral: Nicotine dependence/ active smoker - Nicotine patch once stable - Refuses home o2, wont stop smoking Prophylaxis: DVT ppx - Heparin sq Visit type - Emergency Visit Emergency Visit: Yes ED Registration Date: 05/03/17 Care time: The patient presented to the Emergency Department on the above date and was hospitalized for further evaluation of their emergent condition. - New Patient This patient is new to me today: Yes Date on this admission: 05/04/17 - Critical Care Critical Care patient: Yes Total Critical Care Time (in minutes): 35 Critical Care Statement: The care of this patient involved high complexity decision making to prevent further life threatening deterioration of the patient 's condition and/or to evaluate & treat vital organ system(s) failure or risk of failure. - Discharge Referral Referred to [facility] Med [facility].: No
[2017-05-04] MEDS ORDERED: PT OWN MED DRAWER 7, Y5N ONE ×2 (08:57→09:52)
--- NOTE | 2017-05-04 09:11 | EKG ---
Test Reason : Blood Pressure : / mmHG Vent. Rate : 098 BPM Atrial Rate : 098 BPM P-R Int : 170 ms QRS Dur : 080 ms QT Int : 356 ms P-R-T Axes : 031 018 126 degrees QTc Int : 454 ms SINUS RHYTHM WITH PREMATURE ATRIAL COMPLEXES WITH ABERRANT CONDUCTION POSSIBLE LEFT ATRIAL ENLARGEMENT ABNORMAL ECG WHEN COMPARED WITH ECG OF 13-APR-2017 15:52, ABERRANT CONDUCTION IS NOW PRESENT Confirmed by BEAR WEINER, FRIDA ([id number]) on 05/04/2017 9:11:08 AM Referred By: Confirmed By:FRIDA SIFUENTES MD
[2017-05-04] MEDS: FUROSEMIDE 40 MG/4 ML INJECTABLE VIAL IVPUSH SCH (09:45)
[2017-05-04] MEDS: ESCITALOPRAM OXALATE 20 MG TABLET (FP) PO SCH (09:46)
[2017-05-04] MEDS: CARVEDILOL 12.5 MG TABLET (FP) PO SCH ×2 (09:46→21:55)
[2017-05-04] MEDS: LISINOPRIL 5 MG TABLET (FP) PO SCH (09:46)
[2017-05-04] MEDS: amLODIPine BESYLATE 10 MG TABLET (FP) PO SCH (09:46)
[2017-05-04] MEDS: POTASSIUM CHLORIDE ORAL LIQUID 20 MEQ/15 ML PO SCH ×2 (09:46→21:58)
[2017-05-04] MEDS: ASPIRIN COATED 81 MG TABLET.EC PO SCH (09:46)
[2017-05-04] MEDS: OLANZapine 10 MG TABLET PO SCH ×2 (10:10→21:55)
[2017-05-04] MEDS: MUPIROCIN 2% TOPICAL OINTMENT FOR DECOLONIZATION NS SCH ×2 (10:10→21:55)
--- NOTE | 2017-05-04 11:49 | PN ---
Teaching Attending Note Name of Resident: Ashlee Horton ATTENDING PHYSICIAN STATEMENT I saw and evaluated the patient. I reviewed the resident's note and discussed the case with the resident. I agree with the resident's findings and plan as documented. SUBJECTIVE: Patient seen and examined in the ICU. Awake and responsive on NIPPV. Denies CP. SOB Is better on NIPPV. CXR: No gross change in mildly increased markings Intake & Output 05/01/17 05/02/17 05/03/17 05/04/17 23:59 23:59 23:59 23:59 Intake Total 450 Output Total 900 1100 Balance -900 -650 Weight 244 lb 1 oz Last Vital Signs Temp Pulse Resp BP Pulse Ox 98.4 F 81 20 127/75 93 L 05/04/17 06:00 05/04/17 08:30 05/04/17 08:32 05/04/17 06:00 05/04/17 08:32 Active Medications Albuterol/Ipratropium (Duoneb -) 1 amp NEB Q6H PRN PRN Reason: SHORTNESS OF BREATH Last Admin: 05/04/17 06:28 Dose: 1 amp Amlodipine Besylate (Norvasc -) 10 mg PO DAILY [facility] Last Admin: 05/04/17 09:46 Dose: 10 mg Aspirin (Ecotrin -) 81 mg PO DAILY [facility] Last Admin: 05/04/17 09:46 Dose: 81 mg Atorvastatin Calcium (Lipitor -) 40 mg PO HS [facility] Last Admin: 05/03/17 21:48 Dose: 40 mg Carvedilol (Coreg -) 12.5 mg PO BID [facility] Last Admin: 05/04/17 09:46 Dose: 12.5 mg Chlorhexidine Gluconate (Hibiclens For Decolonization -) 1 applic TP HS [facility] Last Admin: 05/03/17 21:48 Dose: 1 applic Escitalopram Oxalate (Lexapro -) 20 mg PO DAILY [facility] Last Admin: 05/04/17 09:46 Dose: 20 mg Furosemide (Lasix Injection -) 40 mg IVPUSH DAILY [facility] Last Admin: 05/04/17 09:45 Dose: 40 mg Heparin Sodium (Porcine) (Heparin -) 5,000 unit SQ TID [facility] Last Admin: 05/04/17 06:31 Dose: 5,000 unit Hydralazine HCl (Apresoline -) 50 mg PO TID [facility] Last Admin: 05/04/17 06:30 Dose: Not Given Nitroglycerin/Dextrose (Nitroglycerin 25mg/D5w 250ml) 25 mg in 250 mls @ 30 mls /hr IVPB TITR JOSLYN PRN Reason: 50 MCG/MIN Last Titration: 05/04/17 06:40 Dose: 20 mcg/min, 12 mls/hr Insulin Aspart (Novolog Vial Sliding Scale -) 1 vial SQ ACHS JOSLYN PRN Reason: Protocol Last Admin: 05/04/17 06:31 Dose: 2 units Insulin Detemir (Levemir Vial) 14 units SQ HS [facility] Last Admin: 05/03/17 21:56 Dose: 14 units Lisinopril (Prinivil) 5 mg PO DAILY [facility] Last Admin: 05/04/17 09:46 Dose: 5 mg Mupirocin (Bactroban Ointment (For Decolonization) -) 1 applic NS BID [facility] Stop: 05/08/17 21:59 Last Admin: 05/04/17 10:10 Dose: 1 applic Olanzapine (Zyprexa -) 10 mg PO BID [facility] Last Admin: 05/04/17 10:10 Dose: 10 mg Potassium Chloride (Potassium Chloride Oral Liquid) 40 meq PO BID [facility] Last Admin: 05/04/17 09:46 Dose: 40 meq Constitutional: Yes: Mildly tachypneic on NIPPV, Obese Eyes: Yes: PERRL HENT: Yes: Atraumatic Neck: Yes: Supple Cardiovascular: Yes: Pulse Irregular, S1, S2 Respiratory: Yes: On BiPap, Rhonchi Renal/: Yes: [place] Present Edema: Yes Edema: LLE: Trace, RLE: Trace Peripheral Pulses WNL: Yes Neurological: Yes: Lethargy Psychiatric: Yes: Oriented Labs: Laboratory Results - last 24 hr 05/03/17 05/03/17 05/03/17 13:18 13:18 13:18 WBC 7.1 RBC 3.04 L Hgb 7.4 L D Hct 25.4 L MCV 83.3 MCH 24.3 L MCHC 29.2 L RDW 24.2 H D Plt Count 182 D MPV 7.4 L Neutrophils % 74.6 Lymphocytes % 16.1 D Monocytes % 8.7 Eosinophils % 0.4 D Basophils % 0.2 PT with INR 11.60 INR 1.03 PTT (Actin FS) 26.4 L Anticoagulation Therapy Puncture Site ABG pH ABG pCO2 at Pt Temp ABG pO2 at Pt Temp ABG HCO3 ABG O2 Sat (Measured) ABG O2 Content ABG Base Excess Good Test Carboxyhemoglobin Methemoglobin O2 Delivery Device Oxygen Flow Rate Vent Mode Vent Rate Mechanical Rate PEEP Pressure Support Vent Sodium Potassium Chloride Carbon Dioxide Anion Gap BUN Creatinine Creat Clearance w eGFR POC Glucometer Random Glucose Lactic Acid Calcium Phosphorus Magnesium Total Bilirubin AST ALT Alkaline Phosphatase Creatine Kinase 44 Troponin I 0.02 B-Natriuretic Peptide 2042.55 H Total Protein Albumin Urine Color Urine Appearance Urine pH Ur Specific [place] Urine Protein Urine Glucose (UA) Urine Ketones Urine Blood Urine Nitrite Urine Bilirubin Urine Urobilinogen Ur Leukocyte Esterase Urine WBC (Auto) Urine RBC (Auto) Ur Epithelial Cells Urine Bacteria Hyaline Casts Urine Mucus Acetone, Qual Blood Type Antibody Screen Prewarmed Antibody Srcn Antibody Identification Antigen Identification Crossmatch 05/03/17 05/03/17 05/03/17 13:18 13:18 13:30 WBC RBC Hgb Hct MCV MCH MCHC RDW Plt Count MPV Neutrophils % Lymphocytes % Monocytes % Eosinophils % Basophils % PT with INR INR PTT (Actin FS) Anticoagulation Therapy No Result Required. Puncture Site Left radial ABG pH 7.35 ABG pCO2 at Pt Temp 51.7 H D ABG pO2 at Pt Temp 40.2 L* D ABG HCO3 27.9 H ABG O2 Sat (Measured) 70.4 L* ABG O2 Content 7.0 L* ABG Base Excess 2.5 H Good Test Positive Carboxyhemoglobin 3.8 H Methemoglobin 1.1 O2 Delivery Device Bipap Oxygen Flow Rate 45 Vent Mode S/t Vent Rate 10 Mechanical Rate No Result Required. PEEP 0.0 Pressure Support Vent Ipap/epaps Sodium 142 Potassium 3.4 L Chloride 103 D Carbon Dioxide 29 D Anion Gap 10 BUN 25 H D Creatinine 1.5 H Creat Clearance w eGFR 35.19 POC Glucometer Random Glucose 238 H D Lactic Acid Calcium 8.1 L Phosphorus Magnesium Total Bilirubin 0.8 D AST 22 D ALT 41 D Alkaline Phosphatase 130 H Creatine Kinase Troponin I B-Natriuretic Peptide Total Protein 7.1 Albumin 3.1 L Urine Color Urine Appearance Urine pH Ur Specific [place] Urine Protein Urine Glucose (UA) Urine Ketones Urine Blood Urine Nitrite Urine Bilirubin Urine Urobilinogen Ur Leukocyte Esterase Urine WBC (Auto) Urine RBC (Auto) Ur Epithelial Cells Urine Bacteria Hyaline Casts Urine Mucus Acetone, Qual Negative L Blood Type Antibody Screen Prewarmed Antibody Srcn Antibody Identification Antigen Identification Crossmatch 05/03/17 05/03/17 05/03/17 13:40 14:02 14:02 WBC RBC Hgb Hct MCV MCH MCHC RDW Plt Count MPV Neutrophils % Lymphocytes % Monocytes % Eosinophils % Basophils % PT with INR INR PTT (Actin FS) Anticoagulation Therapy Puncture Site ABG pH ABG pCO2 at Pt Temp ABG pO2 at Pt Temp ABG HCO3 ABG O2 Sat (Measured) ABG O2 Content ABG Base Excess Good Test Carboxyhemoglobin Methemoglobin O2 Delivery Device Oxygen Flow Rate Vent Mode Vent Rate Mechanical Rate PEEP Pressure Support Vent Sodium Potassium Chloride Carbon Dioxide Anion Gap BUN Creatinine Creat Clearance w eGFR POC Glucometer Random Glucose Lactic Acid 0.9 Calcium Phosphorus Magnesium Total Bilirubin AST ALT Alkaline Phosphatase Creatine Kinase Troponin I B-Natriuretic Peptide Total Protein Albumin Urine Color Yellow Urine Appearance Clear Urine pH 5.0 Ur Specific [place] 1.012 Urine Protein 1+ H Urine Glucose (UA) Negative Urine Ketones Negative Urine Blood Negative Urine Nitrite Positive Urine Bilirubin Negative Urine Urobilinogen 2.0 H Ur Leukocyte Esterase Negative Urine WBC (Auto) 1 Urine RBC (Auto) <1 Ur Epithelial Cells Rare Urine Bacteria Many Hyaline Casts 4 Urine Mucus Rare Acetone, Qual Blood Type Cancelled Antibody Screen Cancelled Prewarmed Antibody Srcn Antibody Identification Antigen Identification Crossmatch See Detail 05/03/17 05/03/17 05/03/17 14:32 16:06 19:06 WBC RBC Hgb Hct MCV MCH MCHC RDW Plt Count MPV Neutrophils % Lymphocytes % Monocytes % Eosinophils % Basophils % PT with INR INR PTT (Actin FS) Anticoagulation Therapy No Result Required. Puncture Site Left radial ABG pH 7.34 L ABG pCO2 at Pt Temp 54.0 H ABG pO2 at Pt Temp 64.7 L D ABG HCO3 28.1 H ABG O2 Sat (Measured) 91.4 ABG O2 Content 8.8 L* ABG Base Excess 2.5 H Good Test Positive Carboxyhemoglobin 3.7 H Methemoglobin 0.9 O2 Delivery Device Bipap Oxygen Flow Rate 45 Vent Mode S/t Vent Rate 10 Mechanical Rate Yes PEEP 0.0 Pressure Support Vent [id number] Sodium Potassium Chloride Carbon Dioxide Anion Gap BUN Creatinine Creat Clearance w eGFR POC Glucometer [phone] Random Glucose Lactic Acid Calcium Phosphorus Magnesium Total Bilirubin AST ALT Alkaline Phosphatase Creatine Kinase Troponin I B-Natriuretic Peptide Total Protein Albumin Urine Color Urine Appearance Urine pH Ur Specific [place] Urine Protein Urine Glucose (UA) Urine Ketones Urine Blood Urine Nitrite Urine Bilirubin Urine Urobilinogen Ur Leukocyte Esterase Urine WBC (Auto) Urine RBC (Auto) Ur Epithelial Cells Urine Bacteria Hyaline Casts Urine Mucus Acetone, Qual Blood Type O POSITIVE Antibody Screen Positive H Prewarmed Antibody Srcn Negative Antibody Identification Cancelled Antigen Identification Cancelled Crossmatch See Detail 05/03/17 05/04/17 05/04/17 21:52 05:15 05:15 WBC 5.0 RBC 2.70 L Hgb 6.7 L* Hct 22.4 L MCV 83.1 MCH 24.9 L MCHC 30.0 L RDW 24.1 H Plt Count 196 MPV 7.8 Neutrophils % 65.5 Lymphocytes % 23.3 D Monocytes % 9.6 Eosinophils % 1.1 D Basophils % 0.5 PT with INR INR PTT (Actin FS) Anticoagulation Therapy Puncture Site ABG pH ABG pCO2 at Pt Temp ABG pO2 at Pt Temp ABG HCO3 ABG O2 Sat (Measured) ABG O2 Content ABG Base Excess Good Test Carboxyhemoglobin Methemoglobin O2 Delivery Device Oxygen Flow Rate Vent Mode Vent Rate Mechanical Rate PEEP Pressure Support Vent Sodium 143 Potassium 3.2 L Chloride 107 Carbon Dioxide 31 Anion Gap 5 L BUN 20 H Creatinine 1.2 H Creat Clearance w eGFR 45.52 POC Glucometer [phone] Random Glucose 122 H D Lactic Acid Calcium 7.5 L Phosphorus 3.3 D Magnesium 1.8 Total Bilirubin 0.6 D AST 15 D ALT 31 D Alkaline Phosphatase 92 D Creatine Kinase Troponin I B-Natriuretic Peptide Total Protein 5.7 L Albumin 2.5 L Urine Color Urine Appearance Urine pH Ur Specific [place] Urine Protein Urine Glucose (UA) Urine Ketones Urine Blood Urine Nitrite Urine Bilirubin Urine Urobilinogen Ur Leukocyte Esterase Urine WBC (Auto) Urine RBC (Auto) Ur Epithelial Cells Urine Bacteria Hyaline Casts Urine Mucus Acetone, Qual Blood Type Antibody Screen Prewarmed Antibody Srcn Antibody Identification Antigen Identification Crossmatch 05/04/17 05/04/17 05:35 06:23 WBC RBC Hgb Hct MCV MCH MCHC RDW Plt Count MPV Neutrophils % Lymphocytes % Monocytes % Eosinophils % Basophils % PT with INR INR PTT (Actin FS) Anticoagulation Therapy Puncture Site Left radial ABG pH 7.35 ABG pCO2 at Pt Temp 57.7 H ABG pO2 at Pt Temp 69.7 L ABG HCO3 30.9 H ABG O2 Sat (Measured) 93.7 ABG O2 Content 8.3 L* ABG Base Excess 5.3 H Good Test Positive Carboxyhemoglobin Methemoglobin O2 Delivery Device Bipap Oxygen Flow Rate 45% Vent Mode S/t Vent Rate 10 Mechanical Rate PEEP Pressure Support Vent 18/5 Sodium Potassium Chloride Carbon Dioxide Anion Gap BUN Creatinine Creat Clearance w eGFR POC Glucometer [phone] Random Glucose Lactic Acid Calcium Phosphorus Magnesium Total Bilirubin AST ALT Alkaline Phosphatase Creatine Kinase Troponin I B-Natriuretic Peptide Total Protein Albumin Urine Color Urine Appearance Urine pH Ur Specific [place] Urine Protein Urine Glucose (UA) Urine Ketones Urine Blood Urine Nitrite Urine Bilirubin Urine Urobilinogen Ur Leukocyte Esterase Urine WBC (Auto) Urine RBC (Auto) Ur Epithelial Cells Urine Bacteria Hyaline Casts Urine Mucus Acetone, Qual Blood Type Antibody Screen Prewarmed Antibody Srcn Antibody Identification Antigen Identification Crossmatch Problem List - Problems (1) Medication noncompliance due to cognitive impairment Code(s): Z91.14 - PATIENT'S OTHER NONCOMPLIANCE WITH MEDICATION REGIMEN (2) CHF (congestive heart failure) Code(s): I50.9 - HEART FAILURE, UNSPECIFIED (3) Acute on chronic diastolic (congestive) heart failure Code(s): I50.33 - ACUTE ON CHRONIC DIASTOLIC (CONGESTIVE) HEART FAILURE (4) Acute respiratory failure with hypoxia and hypercapnia Code(s): J96.01 - ACUTE RESPIRATORY FAILURE WITH HYPOXIA; J96.02 - ACUTE RESPIRATORY FAILURE WITH HYPERCAPNIA (5) COPD exacerbation Code(s): J44.1 - CHRONIC OBSTRUCTIVE PULMONARY DISEASE W (ACUTE) EXACERBATION (6) Leg edema Code(s): R60.0 - LOCALIZED EDEMA (7) Anxiety Code(s): F41.9 - ANXIETY DISORDER, UNSPECIFIED (8) Chronic kidney insufficiency Code(s): N18.9 - CHRONIC KIDNEY DISEASE, UNSPECIFIED Qualifiers: Chronic kidney disease stage: unspecified stage Qualified Code(s): N18.9 - Chronic kidney disease, unspecified (9) Chronic pain Code(s): G89.29 - OTHER CHRONIC PAIN Qualifiers: Chronic pain type: other chronic pain Qualified Code(s): G89.29 - Other chronic pain Assessment/Plan NIPPV as needed Lasix Wean IV NTG drip BD TX Follow BGM Replete electrolytes VTE prophylaxis ASA Dr Garcia Critical care time spent in reviewing chart, evaluating patient and formulating plan - 38 minutes.
--- NOTE | 2017-05-04 12:08 | PN ---
Teaching Attending Note Name of Resident: Raghu Reed ATTENDING PHYSICIAN STATEMENT I saw and evaluated the patient. I reviewed the resident's note and discussed the case with the resident. I agree with the resident's findings and plan as documented. SUBJECTIVE:resting comfortable on bipap OBJECTIVE: Last Vital Signs Temp Pulse Resp BP Pulse Ox 98.4 F 81 20 127/75 93 L 05/04/17 06:00 05/04/17 08:30 05/04/17 08:32 05/04/17 06:00 05/04/17 08:32 Intake & Output 05/01/17 05/02/17 05/03/17 05/04/17 23:59 23:59 23:59 23:59 Intake Total 450 Output Total 900 1100 Balance -900 -650 Weight 244 lb 1 oz General lethargic. responds to verbal stimuli and then easily falls asleep CV S1 S2 RRR Lungs coarse breath sounds anteriorly Abdomen soft NT/ND Extremities 1+ pitting edema ASSESSMENT AND PLAN: 61 yo F with PMHx of morbid obesity, Diastolic HF, COPD, suspected DIRK, NIDDM, HTN, HLD, schizophrenia/bipolar disorder, frequent recent admissions with hypoxic/hypercapnic respiratory failure presents with similar symptoms 1. Acute hypoxic respiratory failure-due to volume overload on bipap and holding saturations. not retaining CO2 at this time and is at baseline ( baseline 50's). NIPPV as needed. ICU management 2. Acute on chronic diastolic CHF-hx of non-compliance. on NTG ggt. titrate down as tolerated. lasix 40mg IV. cont coreg/asa/statin. cardio on board 3. Acute anemia- no signs of bleeding. has refused colonoscopy in the past. currently receiving 1 unit PRBC. will repeat hgb. give lasix after each unit of blood 4. hypokalemia- KCl 5. DM- steroid induced. on levemir 14 units HS and iss. cont 6. HTN- controlled 7. Schizophrenia- zyprexa 8. CKD- at baseline 9. DVT ppx- hep sq 10. MICU monitoring The care of this patient involved high complexity decision making to prevent further life threatening deterioration of the patient's condition and/or to evaluate & treat vital organ system(s) failure or risk of failure. 40 minutes
[2017-05-04 13:16] LABS: EOS % 0.8 % (0-4.5); HEMOGLOBIN 7.7 GM/dL (10.7-15.3); LYMPH % 22.6 % (8-40); MCH 24.7 pg (25.7-33.7); MCHC 29.7 g/dl (32.0-36.0); MEAN CELL VOLUME 83.2 fl (80-96); MEAN PLT VOLUME 8.1 fl (7.5-11.1); MONO % 7.6 % (3.8-10.2); PLATELET COUNT 199 K/MM3 (134-434); RBC 3.12 M/mm3 (3.60-5.2); RDW 23.5 % (11.6-15.6); WHITE BLOOD COUNT 5.9 K/mm3 (4.0-10.0)
[2017-05-04 13:23] LABS: ADD RBC MORPHOLOGY YES
[2017-05-04] MEDS: NITROGLYCERIN 25MG/D5W 250ML 25 MG/250 ML ML IVPB SCH ×2 (13:28→18:00)
[2017-05-04 14:07] LABS: ANISOCYTOSIS 3+; MACROCYTOSIS 0; OVALOCYTE 2+; PLATELET ESTIMATE NORMAL
--- NOTE | 2017-05-04 16:12 | PN ---
Progress Note, Physician History of Present Illness: Dyspnea and O2 requirement has improved with diuresis and afterload reduction. - Current Medication List Current Medications: Active Medications Albuterol/Ipratropium (Duoneb -) 1 amp NEB Q6H PRN PRN Reason: SHORTNESS OF BREATH Last Admin: 05/04/17 06:28 Dose: 1 amp Amlodipine Besylate (Norvasc -) 10 mg PO DAILY [facility] Last Admin: 05/04/17 09:46 Dose: 10 mg Aspirin (Ecotrin -) 81 mg PO DAILY [facility] Last Admin: 05/04/17 09:46 Dose: 81 mg Atorvastatin Calcium (Lipitor -) 40 mg PO HS [facility] Last Admin: 05/03/17 21:48 Dose: 40 mg Carvedilol (Coreg -) 12.5 mg PO BID [facility] Last Admin: 05/04/17 09:46 Dose: 12.5 mg Chlorhexidine Gluconate (Hibiclens For Decolonization -) 1 applic TP HS [facility] Last Admin: 05/03/17 21:48 Dose: 1 applic Escitalopram Oxalate (Lexapro -) 20 mg PO DAILY [facility] Last Admin: 05/04/17 09:46 Dose: 20 mg Furosemide (Lasix Injection -) 40 mg IVPUSH DAILY [facility] Last Admin: 05/04/17 09:45 Dose: 40 mg Heparin Sodium (Porcine) (Heparin -) 5,000 unit SQ TID [facility] Last Admin: 05/04/17 13:27 Dose: 5,000 unit Hydralazine HCl (Apresoline -) 50 mg PO TID [facility] Last Admin: 05/04/17 13:27 Dose: 50 mg Nitroglycerin/Dextrose (Nitroglycerin 25mg/D5w 250ml) 25 mg in 250 mls @ 30 mls /hr IVPB TITR [facility] PRN Reason: 50 MCG/MIN Last Admin: 05/04/17 13:28 Dose: 20 mcg/min, 12 mls/hr Insulin Aspart (Novolog Vial Sliding Scale -) 1 vial SQ ACHS [facility] PRN Reason: Protocol Last Admin: 05/04/17 12:00 Dose: 6 units Insulin Detemir (Levemir Vial) 14 units SQ HS [facility] Last Admin: 05/03/17 21:56 Dose: 14 units Lisinopril (Prinivil) 5 mg PO DAILY [facility] Last Admin: 05/04/17 09:46 Dose: 5 mg Mupirocin (Bactroban Ointment (For Decolonization) -) 1 applic NS BID [facility] Stop: 05/08/17 21:59 Last Admin: 05/04/17 10:10 Dose: 1 applic Olanzapine (Zyprexa -) 10 mg PO BID [facility] Last Admin: 05/04/17 10:10 Dose: 10 mg Potassium Chloride (Potassium Chloride Oral Liquid) 40 meq PO BID [facility] Last Admin: 05/04/17 09:46 Dose: 40 meq - Objective Vital Signs: Vital Signs Temperature 98.9 F 05/04/17 10:00 Pulse Rate 75 05/04/17 14:00 Respiratory Rate 24 05/04/17 14:00 Blood Pressure 119/69 05/04/17 14:00 O2 Sat by Pulse Oximetry (%) 97 05/04/17 13:35 Constitutional: Yes: No Distress, Calm Neck: Yes: Supple Cardiovascular: Yes: Regular Rate and Rhythm Respiratory: Yes: Regular, Diminished, On Nasal O2 Gastrointestinal: Yes: Normal Bowel Sounds, Soft, Abdomen, Obese Edema: Yes Edema: LLE: 1+, RLE: 1+ Labs: CBC, BMP 05/04/17 13:07 05/04/17 05:15 INR, PTT INR 1.03 (0.82-1.09) 05/03/17 13:18 - ....Imaging Chest X-ray: Report Reviewed (Stable) Problem List - Problems (1) Acute on chronic diastolic (congestive) heart failure Code(s): I50.33 - ACUTE ON CHRONIC DIASTOLIC (CONGESTIVE) HEART FAILURE (2) Acute respiratory failure with hypoxia and hypercapnia Code(s): J96.01 - ACUTE RESPIRATORY FAILURE WITH HYPOXIA; J96.02 - ACUTE RESPIRATORY FAILURE WITH HYPERCAPNIA (3) Leg edema Code(s): R60.0 - LOCALIZED EDEMA (4) CAD (coronary artery disease) Code(s): I25.10 - ATHSCL HEART DISEASE OF [place] CORONARY ARTERY W/O ANG PCTRS Qualifiers: Coronary Disease-Associated Artery/Lesion type: [place] artery [place] vs. transplanted heart: [place] heart Associated angina: without angina Qualified Code(s): I25.10 - Atherosclerotic heart disease of [place] coronary artery without angina pectoris (5) COPD (chronic obstructive pulmonary disease) Code(s): J44.9 - CHRONIC OBSTRUCTIVE PULMONARY DISEASE, UNSPECIFIED Qualifiers: COPD type: unspecified COPD Qualified Code(s): J44.9 - Chronic obstructive pulmonary disease, unspecified (6) Chronic kidney insufficiency Code(s): N18.9 - CHRONIC KIDNEY DISEASE, UNSPECIFIED Qualifiers: Chronic kidney disease stage: unspecified stage Qualified Code(s): N18.9 - Chronic kidney disease, unspecified (7) Diabetes mellitus Code(s): E11.9 - TYPE 2 DIABETES MELLITUS WITHOUT COMPLICATIONS Qualifiers: Diabetes mellitus type: type 2 Diabetes mellitus complication status: without complication Diabetes mellitus [employer] insulin use: without assisted use Qualified Code(s): E11.9 - Type 2 diabetes mellitus without complications (8) Hypertension Code(s): I10 - ESSENTIAL (PRIMARY) HYPERTENSION Qualifiers: Hypertension type: essential hypertension Qualified Code(s): I10 - Essential (primary) hypertension (9) Schizophrenia Code(s): F20.9 - SCHIZOPHRENIA, UNSPECIFIED Qualifiers: Schizophrenia type: unspecified Qualified Code(s): F20.9 - Schizophrenia, unspecified (10) Hypokalemia Code(s): E87.6 - HYPOKALEMIA (11) Medication noncompliance due to cognitive impairment Code(s): Z91.14 - PATIENT'S OTHER NONCOMPLIANCE WITH MEDICATION REGIMEN Assessment/Plan 03/27/2017 Preserved LV fxn, poor windows 1. Acute hypoxic/hypercapneic respiratory failure post extubation most likely related to 2. Acute on chronic class II [place] [employer] classification diastolic left ventricular congestive heart failure in context of medication compliance 3. Chronic obstructive pulmonary disease, exacerbation 4. Probable CAD angina pectoris 5. Hypertensive cardiovascular disease 6. Diabetes mellitus 7. History of schizophrenia/bipolar disorder 8. CKD 9. Anemia 10. Exogenous obesity, OSAS suspect PLAN: 1. IV diuresis with monitor diuretic response, renal fxn and electrolytes, replete K, wean off NTG gtt 2. Transfuse pRBC to maintain Hgb>8.0 with Lasix chasers 3. Continue Coreg 12.5 bid and titrate as needed and as tolerated 4. Continue Prinivil 5 qd and titrate as needed and as tolerated 5. Continue Norvasc 10 qd, hydralazine 50 tid 6. Continue ASA 81 qd, Lipitor 40 qhs 7. Patient will eventually require myocardial perfusion imaging study to assess severity of coronary artery disease, can be performed on outpatient basis 8. Bronchodilators, oral steroids taper, bipap and O2 as per pulmonary team, DVT and GI prophylaxis, PSG as outpatient
[2017-05-04] MEDS ORDERED: FUROSEMIDE 40 MG/4 ML INJECTABLE VIAL IVPUSH ONE (16:30)
[2017-05-04] MEDS ORDERED: oxyCODONE HCL 5 MG TABLET PO ONE (20:11)
[2017-05-04] MEDS: CHLORHEXIDINE GLUCONATE 4% CLEANSER FOR DECOLONIZATION TP SCH (21:55)
[2017-05-04] MEDS: INSULIN DETEMIR 100 UNITS/ML MDV SQ SCH (21:55)
[2017-05-04] MEDS: ATORVASTATIN CA 40 MG TABLET (FP) PO SCH (21:55)
[2017-05-05 06:15] LABS: BASO % 0.4 % (0-2.0); EOS % 0.7 % (0-4.5); HEMATOCRIT 24.9 % (32.4-45.2); HEMOGLOBIN 7.4 GM/dL (10.7-15.3); LYMPH % 32.4 % (8-40); MCH 24.7 pg (25.7-33.7); MCHC 29.7 g/dl (32.0-36.0); MEAN PLT VOLUME 7.9 fl (7.5-11.1); MONO % 9.3 % (3.8-10.2); NEUT % 57.2 % (42.8-82.8); PLATELET COUNT 226 K/MM3 (134-434); RDW 23.3 % (11.6-15.6); WHITE BLOOD COUNT 5.3 K/mm3 (4.0-10.0)
[2017-05-05] MEDS: HEPARIN NA (PORCINE) 5,000 UNITS/ML 1ML VIAL SQ SCH ×3 (06:34→21:38)
[2017-05-05] MEDS: hydrALAZINE HCL 25 MG TABLET (FP) PO SCH ×3 (06:34→21:36)
[2017-05-05] MEDS: INSULIN SLIDING SCALE (NOVOLOG) 1 VIAL SQ SCH ×4 (06:35→21:38)
[2017-05-05] MEDS: ALBUTEROL SO4 2.5/IPRATROPIUM 0.5 INH SOL 3 ML VIAL.NEB. NEB PRN (07:05)
--- NOTE | 2017-05-05 07:12 | PN ---
Physical Exam: SUBJECTIVE: Patient seen and examined. No complaints overnight. Received opiates for back pain this am. Sating well on NC. H&H stable post transfusion. Patient requesting home nebulizer OBJECTIVE: Vital Signs Period Temp Pulse Resp BP Sys/Osei Pulse Ox Last 24 Hr 98 F-99.3 F 73-82 16-25 92-142/55-94 93-99 GENERAL: The patient awake, sating well on NC-5L HEAD: Normal with no signs of trauma. EYES: sclera anicteric, conjunctiva clear. ENT: Off bipap NECK: supple. LUNGS: Bilateral fine creps HEART: Regular rate and rhythm, S1, S2 ABDOMEN: Soft, nontender, nondistended, normoactive bowel sounds EXTREMITIES: 2+ pulses, warm, well-perfused, mild edema. NEUROLOGICAL: Alert and oriented x3 Laboratory Results - last 24 hr 05/04/17 05/04/17 05/04/17 06:23 12:06 13:07 WBC 5.9 RBC 3.12 L Hgb 7.7 L D Hct 26.0 L D MCV 83.2 MCH 24.7 L MCHC 29.7 L RDW 23.5 H Plt Count 199 MPV 8.1 Neutrophils % 68.0 Lymphocytes % 22.6 Monocytes % 7.6 Eosinophils % 0.8 Basophils % 1.0 Hypochromia 0 Platelet Estimate Normal Polychromasia 2+ Poikilocytosis 1+ Anisocytosis 3+ Microcytosis 3+ Macrocytosis 0 Ovalocytes 2+ POC Glucometer 163.94155 [phone] 05/04/17 05/04/17 05/05/17 17:36 21:49 05:00 WBC 5.3 RBC 3.00 L Hgb 7.4 L Hct 24.9 L MCV 83.0 MCH 24.7 L MCHC 29.7 L RDW 23.3 H Plt Count 226 MPV 7.9 Neutrophils % 57.2 Lymphocytes % 32.4 D Monocytes % 9.3 Eosinophils % 0.7 Basophils % 0.4 Hypochromia Platelet Estimate Polychromasia Poikilocytosis Anisocytosis Microcytosis Macrocytosis Ovalocytes POC Glucometer 180.72169 [phone] 05/05/17 06:31 WBC RBC Hgb Hct MCV MCH MCHC RDW Plt Count MPV Neutrophils % Lymphocytes % Monocytes % Eosinophils % Basophils % Hypochromia Platelet Estimate Polychromasia Poikilocytosis Anisocytosis Microcytosis Macrocytosis Ovalocytes POC Glucometer 152.33800 CXR: Improved bilateral infiltrates Active Medications Generic Name Dose Route Start Last Admin Trade Name Sebastian PRN Reason Stop Dose Admin Albuterol/Ipratropium 1 amp 05/03/17 21:57 05/05/17 07:05 Duoneb - NEB 1 amp Q6H PRN Administration SHORTNESS OF BREATH Amlodipine Besylate 10 mg 05/04/17 10:00 05/04/17 09:46 Norvasc - PO 10 mg DAILY JOSLYN Administration Aspirin 81 mg 05/04/17 10:00 05/04/17 09:46 Ecotrin - PO 81 mg DAILY JOSLYN Administration Atorvastatin Calcium 40 mg 05/03/17 22:00 05/04/17 21:55 Lipitor - PO 40 mg HS JOSLYN Administration Carvedilol 12.5 mg 05/03/17 22:00 05/04/17 21:55 Coreg - PO 12.5 mg BID JOSLYN Administration Chlorhexidine Gluconate 1 applic 05/03/17 22:00 05/04/17 21:55 Hibiclens For Decolonization - TP 1 applic HS JOSLYN Administration Escitalopram Oxalate 20 mg 05/04/17 10:00 05/04/17 09:46 Lexapro - PO 20 mg DAILY JOSLYN Administration Furosemide 40 mg 05/04/17 10:00 05/04/17 09:45 Lasix Injection - IVPUSH 40 mg DAILY JOSLYN Administration Heparin Sodium (Porcine) 5,000 unit 05/03/17 22:00 05/05/17 06:34 Heparin - SQ 5,000 unit TID JOSYLN Administration Hydralazine HCl 50 mg 05/03/17 22:00 05/05/17 06:34 Apresoline - PO 50 mg TID JOSLYN Administration Nitroglycerin/Dextrose 25 mg in 250 mls @ 30 mls/hr 05/03/17 13:15 05/04/17 19:00 Nitroglycerin 25mg/D5w 250ml IVPB 0 mcg/min TITR JOSLYN 0 mls/hr 50 MCG/MIN Titration Insulin Aspart 1 vial 05/03/17 16:30 05/05/17 06:35 Novolog Vial Sliding Scale - SQ 2 units ACHS JOSLYN Administration Protocol Insulin Detemir 14 units 05/03/17 22:00 05/04/17 21:55 Levemir Vial SQ 14 units HS JOSLYN Administration Lisinopril 5 mg 05/04/17 10:00 05/04/17 09:46 Prinivil PO 5 mg DAILY JOSLYN Administration Mupirocin 1 applic 05/03/17 22:00 05/04/17 21:55 Bactroban Ointment (For Decolonization) - NS 05/08/17 21:59 1 applic BID JOSLYN Administration Olanzapine 10 mg 05/03/17 22:00 05/04/17 21:55 Zyprexa - PO 10 mg BID JOSLYN Administration Potassium Chloride 40 meq 05/04/17 10:00 05/04/17 21:58 Potassium Chloride Oral Liquid PO 40 meq BID JOSLYN Administration ASSESSMENT/PLAN: 61 yo F, with pmhx of HTN, HLD, CHF, DM II, COPD, hepatitis C, CKD, schizophrenia/bipolar disorder admitted to ICU with worsening SOB now on NC Neuro: Acute hypoxic respiratory failure - Sating well on NC-5L -titrate oxygen - Monitor ABG _Continue duonebs- for home use per patient Cardio: Acute on chronic CHF exacerbation, - s/p lasix 40mg IV in ED - Give additional dose of lasix 40mg after blood - Daily weight - I/O's - Continue home Hydralazine, lisinopril, norvasc, coreg Endo: DM II - Levemir 14 untis hs - ISS, BGM ACHS Psych: schizophrenia/bipolar disorder - Continue psych meds Hemonc: Acute blood loss anemia/iron deficiency anemia Stable s/p transfusion - Resume ferrous sulfate once stable Renal: CKD - Appears stable at present - Caution with fluids Behavioral/pain: Nicotine dependence/ active smoker - Nicotine patch once stable - Refuses home o2, wont stop smoking -=pain mx per primary team Prophylaxis: DVT ppx - Heparin sq Dispo: Transfer to Med surg Visit type - Emergency Visit Emergency Visit: Yes ED Registration Date: 05/03/17 Care time: The patient presented to the Emergency Department on the above date and was hospitalized for further evaluation of their emergent condition. - New Patient This patient is new to me today: No - Critical Care Critical Care patient: Yes Total Critical Care Time (in minutes): 38 Critical Care Statement: The care of this patient involved high complexity decision making to prevent further life threatening deterioration of the patient 's condition and/or to evaluate & treat vital organ system(s) failure or risk of failure. - Discharge Referral Referred to [facility] No
[2017-05-05 07:21] LABS: ALBUMIN 2.5 g/dl (3.4-5.0); ANION GAP 6 (8-16); BLOOD UREA NITROGEN 17 mg/dL (7-18); CALCIUM 7.5 mg/dL (8.5-10.1); CHLORIDE 107 mmol/L (98-107); CO2 30 mmol/L (21-32); CREATININE 1.2 mg/dL (0.55-1.02); GLUCOSE,RANDOM 122 mg/dL (74-106); MAGNESIUM 1.6 mg/dL (1.8-2.4); PHOSPHOROUS 2.7 mg/dL (2.5-4.9); POTASSIUM 3.8 mmol/L (3.5-5.1); SGOT/AST 16 U/L (15-37); SGPT/ALT 29 U/L (12-78); SODIUM 143 mmol/L (136-145)
[2017-05-05 07:23] LABS: ALK PHOS 89 U/L (45-117); BILIRUBIN,TOTAL 0.6 mg/dL (0.2-1.0); TOT PROT 5.7 g/dl (6.4-8.2)
[2017-05-05] MEDS: MUPIROCIN 2% TOPICAL OINTMENT FOR DECOLONIZATION NS SCH (09:35)
[2017-05-05] MEDS: FUROSEMIDE 40 MG/4 ML INJECTABLE VIAL IVPUSH SCH (09:36)
[2017-05-05] MEDS: ESCITALOPRAM OXALATE 20 MG TABLET (FP) PO SCH (09:36)
[2017-05-05] MEDS: CARVEDILOL 12.5 MG TABLET (FP) PO SCH ×2 (09:36→21:37)
[2017-05-05] MEDS: amLODIPine BESYLATE 10 MG TABLET (FP) PO SCH (09:36)
[2017-05-05] MEDS: POTASSIUM CHLORIDE ORAL LIQUID 20 MEQ/15 ML PO SCH (09:36)
[2017-05-05] MEDS: LISINOPRIL 5 MG TABLET (FP) PO SCH (09:36)
[2017-05-05] MEDS: ASPIRIN COATED 81 MG TABLET.EC PO SCH (09:36)
[2017-05-05] MEDS: OLANZapine 10 MG TABLET PO SCH ×2 (09:36→22:39)
[2017-05-05] MEDS ORDERED: MAGNESIUM OXIDE 400 MG TABLET (FP) PO SCH (10:00)
[2017-05-05] MEDS ORDERED: MAGNESIUM OXIDE 400 MG TABLET (FP) ONE (11:02)
--- NOTE | 2017-05-05 11:34 | PN ---
Teaching Attending Note Name of Resident: Ashlee Horton ATTENDING PHYSICIAN STATEMENT I saw and evaluated the patient. I reviewed the resident's note and discussed the case with the resident. I agree with the resident's findings and plan as documented. SUBJECTIVE: Patient seen and examined in the ICU. Awake and alert on NC O2. Reports pain issues. CXR: Mild decrease in bilateral increased markings Intake & Output 05/02/17 05/03/17 05/04/17 05/05/17 23:59 23:59 23:59 23:59 Intake Total 1250 800 Output Total 900 2850 300 Balance -900 -1600 500 Weight 244 lb 1 oz 243 lb 9.773 oz Last Vital Signs Temp Pulse Resp BP Pulse Ox 99.8 F H 77 19 121/66 98 05/05/17 10:00 05/05/17 10:00 05/05/17 10:00 05/05/17 10:00 05/05/17 10:20 Active Medications Albuterol/Ipratropium (Duoneb -) 1 amp NEB Q6H PRN PRN Reason: SHORTNESS OF BREATH Last Admin: 05/05/17 07:05 Dose: 1 amp Amlodipine Besylate (Norvasc -) 10 mg PO DAILY [facility] Last Admin: 05/05/17 09:36 Dose: 10 mg Aspirin (Ecotrin -) 81 mg PO DAILY [facility] Last Admin: 05/05/17 09:36 Dose: 81 mg Atorvastatin Calcium (Lipitor -) 40 mg PO HS [facility] Last Admin: 05/04/17 21:55 Dose: 40 mg Carvedilol (Coreg -) 12.5 mg PO BID [facility] Last Admin: 05/05/17 09:36 Dose: 12.5 mg Chlorhexidine Gluconate (Hibiclens For Decolonization -) 1 applic TP HS [facility] Last Admin: 05/04/17 21:55 Dose: 1 applic Escitalopram Oxalate (Lexapro -) 20 mg PO DAILY [facility] Last Admin: 05/05/17 09:36 Dose: 20 mg Furosemide (Lasix Injection -) 40 mg IVPUSH DAILY [facility] Last Admin: 05/05/17 09:36 Dose: 40 mg Heparin Sodium (Porcine) (Heparin -) 5,000 unit SQ TID [facility] Last Admin: 05/05/17 06:34 Dose: 5,000 unit Hydralazine HCl (Apresoline -) 50 mg PO TID [facility] Last Admin: 05/05/17 06:34 Dose: 50 mg Nitroglycerin/Dextrose (Nitroglycerin 25mg/D5w 250ml) 25 mg in 250 mls @ 30 mls /hr IVPB TITR JOSLYN PRN Reason: 50 MCG/MIN Last Titration: 05/04/17 19:00 Dose: 0 mcg/min, 0 mls/hr Insulin Aspart (Novolog Vial Sliding Scale -) 1 vial SQ ACHS [facility] PRN Reason: Protocol Last Admin: 05/05/17 11:17 Dose: 2 units Insulin Detemir (Levemir Vial) 14 units SQ HS [facility] Last Admin: 05/04/17 21:55 Dose: 14 units Lisinopril (Prinivil) 5 mg PO DAILY [facility] Last Admin: 05/05/17 09:36 Dose: 5 mg Magnesium Oxide (Mag-Ox -) 400 mg PO BID [facility] Last Admin: 05/05/17 11:16 Dose: 400 mg Mupirocin (Bactroban Ointment (For Decolonization) -) 1 applic NS BID [facility] Stop: 05/08/17 21:59 Last Admin: 05/05/17 09:35 Dose: 1 applic Olanzapine (Zyprexa -) 10 mg PO BID [facility] Last Admin: 05/05/17 09:36 Dose: 10 mg Potassium Chloride (Potassium Chloride Oral Liquid) 40 meq PO BID [facility] Last Admin: 05/05/17 09:36 Dose: 40 meq Constitutional: Yes: Awake and alert, Mildly tachypneic on NC O2, Obese Eyes: Yes: PERRL HENT: Yes: Atraumatic Neck: Yes: Supple Cardiovascular: Yes: Pulse Irregular, S1, S2 Respiratory: Yes: On NC O2, Rhonchi Renal/: Yes: [place] Present Edema: Yes Edema: LLE: Trace, RLE: Trace Peripheral Pulses WNL: Yes Neurological: Yes: Non-focal Psychiatric: Yes: Oriented Labs: Laboratory Results - last 24 hr 05/04/17 05/04/17 05/04/17 12:06 13:07 17:36 WBC 5.9 RBC 3.12 L Hgb 7.7 L D Hct 26.0 L D MCV 83.2 MCH 24.7 L MCHC 29.7 L RDW 23.5 H Plt Count 199 MPV 8.1 Neutrophils % 68.0 Lymphocytes % 22.6 Monocytes % 7.6 Eosinophils % 0.8 Basophils % 1.0 Hypochromia 0 Platelet Estimate Normal Polychromasia 2+ Poikilocytosis 1+ Anisocytosis 3+ Microcytosis 3+ Macrocytosis 0 Ovalocytes 2+ Sodium Potassium Chloride Carbon Dioxide Anion Gap BUN Creatinine Creat Clearance w eGFR POC Glucometer 230.60336 180.47319 Random Glucose Calcium Phosphorus Magnesium Total Bilirubin AST ALT Alkaline Phosphatase Total Protein Albumin 05/04/17 05/05/17 05/05/17 21:49 05:00 05:00 WBC 5.3 RBC 3.00 L Hgb 7.4 L Hct 24.9 L MCV 83.0 MCH 24.7 L MCHC 29.7 L RDW 23.3 H Plt Count 226 MPV 7.9 Neutrophils % 57.2 Lymphocytes % 32.4 D Monocytes % 9.3 Eosinophils % 0.7 Basophils % 0.4 Hypochromia Platelet Estimate Polychromasia Poikilocytosis Anisocytosis Microcytosis Macrocytosis Ovalocytes Sodium 143 Potassium 3.8 Chloride 107 Carbon Dioxide 30 Anion Gap 6 L BUN 17 Creatinine 1.2 H Creat Clearance w eGFR 45.52 POC Glucometer 149.98759 Random Glucose 122 H Calcium 7.5 L Phosphorus 2.7 Magnesium 1.6 L Total Bilirubin 0.6 AST 16 ALT 29 Alkaline Phosphatase 89 Total Protein 5.7 L Albumin 2.5 L 05/05/17 05/05/17 06:31 10:46 WBC RBC Hgb Hct MCV MCH MCHC RDW Plt Count MPV Neutrophils % Lymphocytes % Monocytes % Eosinophils % Basophils % Hypochromia Platelet Estimate Polychromasia Poikilocytosis Anisocytosis Microcytosis Macrocytosis Ovalocytes Sodium Potassium Chloride Carbon Dioxide Anion Gap BUN Creatinine Creat Clearance w eGFR POC Glucometer 152.73497 159.83205 Random Glucose Calcium Phosphorus Magnesium Total Bilirubin AST ALT Alkaline Phosphatase Total Protein Albumin Problem List - Problems (1) Medication noncompliance due to cognitive impairment Code(s): Z91.14 - PATIENT'S OTHER NONCOMPLIANCE WITH MEDICATION REGIMEN (2) CHF (congestive heart failure) Code(s): I50.9 - HEART FAILURE, UNSPECIFIED (3) Acute on chronic diastolic (congestive) heart failure Code(s): I50.33 - ACUTE ON CHRONIC DIASTOLIC (CONGESTIVE) HEART FAILURE (4) Acute respiratory failure with hypoxia and hypercapnia Code(s): J96.01 - ACUTE RESPIRATORY FAILURE WITH HYPOXIA; J96.02 - ACUTE RESPIRATORY FAILURE WITH HYPERCAPNIA (5) COPD exacerbation Code(s): J44.1 - CHRONIC OBSTRUCTIVE PULMONARY DISEASE W (ACUTE) EXACERBATION (6) Leg edema Code(s): R60.0 - LOCALIZED EDEMA (7) Anxiety Code(s): F41.9 - ANXIETY DISORDER, UNSPECIFIED (8) Chronic kidney insufficiency Code(s): N18.9 - CHRONIC KIDNEY DISEASE, UNSPECIFIED Qualifiers: Chronic kidney disease stage: unspecified stage Qualified Code(s): N18.9 - Chronic kidney disease, unspecified (9) Chronic pain Code(s): G89.29 - OTHER CHRONIC PAIN Qualifiers: Chronic pain type: other chronic pain Qualified Code(s): G89.29 - Other chronic pain Assessment/Plan O2 as needed to maintain saturation NIPPV as needed Lasix BD TX Follow BGM Replete electrolytes VTE prophylaxis Cardiac Telemetry monitoring ASA Dr Garcia Critical care time spent in reviewing chart, evaluating patient and formulating plan - 38 minutes.
--- NOTE | 2017-05-05 14:49 | PN ---
Progress Note, Physician History of Present Illness: Dyspnea and O2 requirement has improved with diuresis and afterload reduction, comfortable on NC. - Current Medication List Current Medications: Active Medications Albuterol/Ipratropium (Duoneb -) 1 amp NEB Q6H PRN PRN Reason: SHORTNESS OF BREATH Last Admin: 05/05/17 07:05 Dose: 1 amp Amlodipine Besylate (Norvasc -) 10 mg PO DAILY [facility] Last Admin: 05/05/17 09:36 Dose: 10 mg Aspirin (Ecotrin -) 81 mg PO DAILY [facility] Last Admin: 05/05/17 09:36 Dose: 81 mg Atorvastatin Calcium (Lipitor -) 40 mg PO HS [facility] Last Admin: 05/04/17 21:55 Dose: 40 mg Carvedilol (Coreg -) 12.5 mg PO BID [facility] Last Admin: 05/05/17 09:36 Dose: 12.5 mg Chlorhexidine Gluconate (Hibiclens For Decolonization -) 1 applic TP HS [facility] Last Admin: 05/04/17 21:55 Dose: 1 applic Escitalopram Oxalate (Lexapro -) 20 mg PO DAILY [facility] Last Admin: 05/05/17 09:36 Dose: 20 mg Furosemide (Lasix Injection -) 40 mg IVPUSH DAILY [facility] Last Admin: 05/05/17 09:36 Dose: 40 mg Heparin Sodium (Porcine) (Heparin -) 5,000 unit SQ TID [facility] Last Admin: 05/05/17 13:57 Dose: 5,000 unit Hydralazine HCl (Apresoline -) 50 mg PO TID [facility] Last Admin: 05/05/17 13:10 Dose: 50 mg Nitroglycerin/Dextrose (Nitroglycerin 25mg/D5w 250ml) 25 mg in 250 mls @ 30 mls /hr IVPB TITR [facility] PRN Reason: 50 MCG/MIN Last Titration: 05/04/17 19:00 Dose: 0 mcg/min, 0 mls/hr Insulin Aspart (Novolog Vial Sliding Scale -) 1 vial SQ ACHS [facility] PRN Reason: Protocol Last Admin: 05/05/17 11:17 Dose: 2 units Insulin Detemir (Levemir Vial) 14 units SQ HS [facility] Last Admin: 05/04/17 21:55 Dose: 14 units Lisinopril (Prinivil) 5 mg PO DAILY [facility] Last Admin: 05/05/17 09:36 Dose: 5 mg Magnesium Oxide (Mag-Ox -) 400 mg PO BID [facility] Last Admin: 05/05/17 11:16 Dose: 400 mg Mupirocin (Bactroban Ointment (For Decolonization) -) 1 applic NS BID [facility] Stop: 05/08/17 21:59 Last Admin: 05/05/17 09:35 Dose: 1 applic Olanzapine (Zyprexa -) 10 mg PO BID [facility] Last Admin: 05/05/17 09:36 Dose: 10 mg Oxycodone/Acetaminophen (Percocet 5/325 -) 2 combo PO Q8H PRN PRN Reason: PAIN LEVEL 6-10 Potassium Chloride (Potassium Chloride Oral Liquid) 40 meq PO BID [facility] Last Admin: 05/05/17 09:36 Dose: 40 meq - Objective Vital Signs: Vital Signs Temperature 99.8 F H 05/05/17 10:00 Pulse Rate 77 05/05/17 10:00 Respiratory Rate 19 05/05/17 10:00 Blood Pressure 121/66 05/05/17 10:00 O2 Sat by Pulse Oximetry (%) 98 05/05/17 10:20 Constitutional: Yes: No Distress, Calm Neck: Yes: Supple Cardiovascular: Yes: Regular Rate and Rhythm Respiratory: Yes: Regular, Diminished, On Nasal O2 Gastrointestinal: Yes: Normal Bowel Sounds, Soft, Abdomen, Obese Edema: Yes Edema: LLE: Trace, RLE: Trace Labs: CBC, BMP 05/05/17 05:00 05/05/17 05:00 INR, PTT INR 1.03 (0.82-1.09) 05/03/17 13:18 Problem List - Problems (1) Acute on chronic diastolic (congestive) heart failure Code(s): I50.33 - ACUTE ON CHRONIC DIASTOLIC (CONGESTIVE) HEART FAILURE (2) Acute respiratory failure with hypoxia and hypercapnia Code(s): J96.01 - ACUTE RESPIRATORY FAILURE WITH HYPOXIA; J96.02 - ACUTE RESPIRATORY FAILURE WITH HYPERCAPNIA (3) Leg edema Code(s): R60.0 - LOCALIZED EDEMA (4) CAD (coronary artery disease) Code(s): I25.10 - ATHSCL HEART DISEASE OF [place] CORONARY ARTERY W/O ANG PCTRS Qualifiers: Coronary Disease-Associated Artery/Lesion type: [place] artery [place] vs. transplanted heart: [place] heart Associated angina: without angina Qualified Code(s): I25.10 - Atherosclerotic heart disease of [place] coronary artery without angina pectoris (5) COPD (chronic obstructive pulmonary disease) Code(s): J44.9 - CHRONIC OBSTRUCTIVE PULMONARY DISEASE, UNSPECIFIED Qualifiers: COPD type: unspecified COPD Qualified Code(s): J44.9 - Chronic obstructive pulmonary disease, unspecified (6) Chronic kidney insufficiency Code(s): N18.9 - CHRONIC KIDNEY DISEASE, UNSPECIFIED Qualifiers: Chronic kidney disease stage: unspecified stage Qualified Code(s): N18.9 - Chronic kidney disease, unspecified (7) Diabetes mellitus Code(s): E11.9 - TYPE 2 DIABETES MELLITUS WITHOUT COMPLICATIONS Qualifiers: Diabetes mellitus type: type 2 Diabetes mellitus complication status: without complication 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 insulin use: without nursing home use Qualified Code(s): E11.9 - Type 2 diabetes mellitus without complications (8) Hypertension Code(s): I10 - ESSENTIAL (PRIMARY) HYPERTENSION Qualifiers: Hypertension type: essential hypertension Qualified Code(s): I10 - Essential (primary) hypertension (9) Schizophrenia Code(s): F20.9 - SCHIZOPHRENIA, UNSPECIFIED Qualifiers: Schizophrenia type: unspecified Qualified Code(s): F20.9 - Schizophrenia, unspecified (10) Hypokalemia Code(s): E87.6 - HYPOKALEMIA (11) Medication noncompliance due to cognitive impairment Code(s): Z91.14 - PATIENT'S OTHER NONCOMPLIANCE WITH MEDICATION REGIMEN Assessment/Plan 03/27/2017 Preserved LV fxn, poor windows 1. Acute hypoxic/hypercapneic respiratory failure post extubation most likely related to 2. Acute on chronic class II [place] [employer] classification diastolic left ventricular congestive heart failure in context of medication compliance 3. Chronic obstructive pulmonary disease, exacerbation 4. Probable CAD angina pectoris 5. Hypertensive cardiovascular disease 6. Diabetes mellitus 7. History of schizophrenia/bipolar disorder 8. CKD 9. Anemia 10. Exogenous obesity, OSAS suspect 11. Klebsiella UTI PLAN: 1. Lasix 40 IV qd with monitor diuretic response, renal fxn and electrolytes 2. Transfuse pRBC to maintain Hgb>8.0 with Lasix chasers 3. Continue Coreg 12.5 bid and titrate as needed and as tolerated 4. Continue Prinivil 5 qd and titrate as needed and as tolerated 5. Continue Norvasc 10 qd, hydralazine 50 tid 6. Continue ASA 81 qd, Lipitor 40 qhs 7. Patient will eventually require myocardial perfusion imaging study to assess severity of coronary artery disease, can be performed on outpatient basis 8. Bronchodilators, oral steroids taper, bipap and O2 as per pulmonary team, DVT and GI prophylaxis, PSG as outpatient 9. Complete abx course per C&S 10. Transfer to floor
[2017-05-05] MEDS ORDERED: oxyCODONE HCL 5 MG TABLET ONE (15:13)
[2017-05-05] MEDS: oxyCODONE HCL 5 MG TABLET PO PRN ×2 (15:19→23:35)
--- NOTE | 2017-05-05 19:26 | PN ---
Teaching Attending Note Name of Resident: Raghu Reed ATTENDING PHYSICIAN STATEMENT I saw and evaluated the patient. I reviewed the resident's note and discussed the case with the resident. I agree with the resident's findings and plan as documented. SUBJECTIVE: Patient complains of back pain. OBJECTIVE: Vital Signs Period Temp Pulse Resp BP Sys/Osei Pulse Ox Last 24 Hr 98 F-99.8 F 73-82 16-23 92-142/54-94 97-99 HEART: S1S2, RRR LUNGS: Clear ABDOMEN: Obese, soft, non-tender, non-distended, normal BS EXTREMITIES: Trace edema Laboratory Results - last 24 hr 05/04/17 05/05/17 05/05/17 21:49 05:00 05:00 WBC 5.3 RBC 3.00 L Hgb 7.4 L Hct 24.9 L MCV 83.0 MCH 24.7 L MCHC 29.7 L RDW 23.3 H Plt Count 226 MPV 7.9 Neutrophils % 57.2 Lymphocytes % 32.4 D Monocytes % 9.3 Eosinophils % 0.7 Basophils % 0.4 Sodium 143 Potassium 3.8 Chloride 107 Carbon Dioxide 30 Anion Gap 6 L BUN 17 Creatinine 1.2 H Creat Clearance w eGFR 45.52 POC Glucometer 149.89274 Random Glucose 122 H Calcium 7.5 L Phosphorus 2.7 Magnesium 1.6 L Total Bilirubin 0.6 AST 16 ALT 29 Alkaline Phosphatase 89 Total Protein 5.7 L Albumin 2.5 L 05/05/17 05/05/17 05/05/17 06:31 10:46 17:10 WBC RBC Hgb Hct MCV MCH MCHC RDW Plt Count MPV Neutrophils % Lymphocytes % Monocytes % Eosinophils % Basophils % Sodium Potassium Chloride Carbon Dioxide Anion Gap BUN Creatinine Creat Clearance w eGFR POC Glucometer 152.89504 159.50216 193.63180 Random Glucose Calcium Phosphorus Magnesium Total Bilirubin AST ALT Alkaline Phosphatase Total Protein Albumin Current Medications Generic Name Dose Route Start Last Admin Trade Name Freq PRN Reason Stop Dose Admin Acetaminophen 650 mg 05/05/17 15:14 Tylenol - PO Q8H PRN PAIN LEVEL 6-10 Albuterol/Ipratropium 1 amp 05/03/17 21:57 05/05/17 07:05 Duoneb - NEB 1 amp Q6H PRN Administration SHORTNESS OF BREATH Amlodipine Besylate 10 mg 05/04/17 10:00 05/05/17 09:36 Norvasc - PO 10 mg DAILY JOSLYN Administration Aspirin 81 mg 05/04/17 10:00 05/05/17 09:36 Ecotrin - PO 81 mg DAILY JOSLYN Administration Atorvastatin Calcium 40 mg 05/03/17 22:00 05/04/17 21:55 Lipitor - PO 40 mg HS JOSLYN Administration Carvedilol 12.5 mg 05/03/17 22:00 05/05/17 09:36 Coreg - PO 12.5 mg BID JOSLYN Administration Chlorhexidine Gluconate 1 applic 05/03/17 22:00 05/04/17 21:55 Hibiclens For Decolonization - TP 1 applic HS JOSLYN Administration Escitalopram Oxalate 20 mg 05/04/17 10:00 05/05/17 09:36 Lexapro - PO 20 mg DAILY JOSLYN Administration Furosemide 40 mg 05/04/17 10:00 05/05/17 09:36 Lasix Injection - IVPUSH 40 mg DAILY JOSLYN Administration Heparin Sodium (Porcine) 5,000 unit 05/03/17 22:00 05/05/17 13:57 Heparin - SQ 5,000 unit TID JOSLYN Administration Hydralazine HCl 50 mg 05/03/17 22:00 05/05/17 13:10 Apresoline - PO 50 mg TID JOSLYN Administration Nitroglycerin/Dextrose 25 mg in 250 mls @ 30 mls/hr 05/03/17 13:15 05/04/17 19:00 Nitroglycerin 25mg/D5w 250ml IVPB 0 mcg/min TITR JOSLYN 0 mls/hr 50 MCG/MIN Titration Insulin Aspart 1 vial 05/03/17 16:30 05/05/17 17:50 Novolog Vial Sliding Scale - SQ 2 units ACHS [facility] Administration Protocol Insulin Detemir 14 units 05/03/17 22:00 05/04/17 21:55 Levemir Vial SQ 14 units HS [facility] Administration Lisinopril 5 mg 05/04/17 10:00 05/05/17 09:36 Prinivil PO 5 mg DAILY JOSLYN Administration Magnesium Oxide 400 mg 05/05/17 10:00 05/05/17 11:16 Mag-Ox - PO 400 mg BID JOSLYN Administration Mupirocin 1 applic 05/03/17 22:00 05/05/17 09:35 Bactroban Ointment (For Decolonization) - NS 05/08/17 21:59 1 applic BID JOSLYN Administration Olanzapine 10 mg 05/03/17 22:00 05/05/17 09:36 Zyprexa - PO 10 mg BID JOSLYN Administration Oxycodone HCl 10 mg 05/05/17 15:14 05/05/17 15:19 Roxicodone - PO 10 mg Q8H PRN Administration PAIN LEVEL 6-10 Potassium Chloride 40 meq 05/04/17 10:00 05/05/17 09:36 Potassium Chloride Oral Liquid PO 40 meq BID JOSLYN Administration ASSESSMENT AND PLAN: This is a 61 yo woman with history of morbid obesity, chronic diastolic heart failure, COPD, suspected DIRK, NIDDM, HTN, hyperlipidemia, schizophrenia/bipolar disorder who presented to the ED with SOB. 1. Acute hypoxic and hypercapnic respiratory failure - Off BiPAP - Oxygen to maintain saturation >90% - BiPAP as needed 2. Acute on chronic diastolic heart failure - Continue Lasix IV - Nitroglycerin IV dip discontinued 3. Anemia - Transfused 1 unit PRBCs 4. Hypokalemia - Improved - Continue potassium supplementation 5. Hypomagnesemia - Magnesium supplementation 6. Type 2 DM - Continue Levemir, Novolog sliding scale 7. HTN - Continue Norvasc, Coreg, Lasix, Lisinopril, Hydralazine 8. Schizophrenia, bipolar disorder - Continue Zyprexa, Lexapro 9. Stage 3 CKD - Stable 10. COPD 11. Possible obstructive sleep apnea 12. Hyperlipidemia - Continue Lipitor 13. Morbid obesity with BMI 41.8 14. Disposition - Transfer out of ICU
--- NOTE | 2017-05-05 19:48 | PN ---
Physical Exam: SUBJECTIVE: Patient alert on NC today. Pt had no events overnight. No new complaints today. OBJECTIVE: Vital Signs Period Temp Pulse Resp BP Sys/Osei Pulse Ox Last 24 Hr 98 F-99.8 F 73-82 16-23 92-142/54-94 97-98 GENERAL:Awake, alert, and fully oriented HEENT: NC/AT, No JVD, sclera anicteric LUNGS: Diminished breath sounds bibasillarly, no wheezes noted today, no accessory muscle use. On NC HEART: RRR, S1, S2 without murmur ABDOMEN: Soft, nontender, nondistended, normoactive bowel sounds, no guarding, no hepatomegaly EXTREMITIES: 2+ DP pulses, warm, Trace pitting edema (edema). SKIN: Warm, dry, no rashes or lesions noted Laboratory Results - last 24 hr 05/04/17 05/05/17 05/05/17 21:49 05:00 05:00 WBC 5.3 RBC 3.00 L Hgb 7.4 L Hct 24.9 L MCV 83.0 MCH 24.7 L MCHC 29.7 L RDW 23.3 H Plt Count 226 MPV 7.9 Neutrophils % 57.2 Lymphocytes % 32.4 D Monocytes % 9.3 Eosinophils % 0.7 Basophils % 0.4 Sodium 143 Potassium 3.8 Chloride 107 Carbon Dioxide 30 Anion Gap 6 L BUN 17 Creatinine 1.2 H Creat Clearance w eGFR 45.52 POC Glucometer [phone] Random Glucose 122 H Calcium 7.5 L Phosphorus 2.7 Magnesium 1.6 L Total Bilirubin 0.6 AST 16 ALT 29 Alkaline Phosphatase 89 Total Protein 5.7 L Albumin 2.5 L 05/05/17 05/05/17 05/05/17 06:31 10:46 17:10 WBC RBC Hgb Hct MCV MCH MCHC RDW Plt Count MPV Neutrophils % Lymphocytes % Monocytes % Eosinophils % Basophils % Sodium Potassium Chloride Carbon Dioxide Anion Gap BUN Creatinine Creat Clearance w eGFR POC Glucometer [phone] Random Glucose Calcium Phosphorus Magnesium Total Bilirubin AST ALT Alkaline Phosphatase Total Protein Albumin Active Medications Generic Name Dose Route Start Last Admin Trade Name Freq PRN Reason Stop Dose Admin Acetaminophen 650 mg 05/05/17 15:14 Tylenol - PO Q8H PRN PAIN LEVEL 6-10 Albuterol/Ipratropium 1 amp 05/03/17 21:57 05/05/17 07:05 Duoneb - NEB 1 amp Q6H PRN Administration SHORTNESS OF BREATH Amlodipine Besylate 10 mg 05/04/17 10:00 05/05/17 09:36 Norvasc - PO 10 mg DAILY JOSLYN Administration Aspirin 81 mg 05/04/17 10:00 05/05/17 09:36 Ecotrin - PO 81 mg DAILY JOSLYN Administration Atorvastatin Calcium 40 mg 05/03/17 22:00 05/04/17 21:55 Lipitor - PO 40 mg HS JOSYLN Administration Carvedilol 12.5 mg 05/03/17 22:00 05/05/17 09:36 Coreg - PO 12.5 mg BID JOSLYN Administration Chlorhexidine Gluconate 1 applic 05/03/17 22:00 05/04/17 21:55 Hibiclens For Decolonization - TP 1 applic HS JOSLYN Administration Escitalopram Oxalate 20 mg 05/04/17 10:00 05/05/17 09:36 Lexapro - PO 20 mg DAILY JOSLYN Administration Furosemide 40 mg 05/04/17 10:00 05/05/17 09:36 Lasix Injection - IVPUSH 40 mg DAILY [facility] Administration Heparin Sodium (Porcine) 5,000 unit 05/03/17 22:00 05/05/17 13:57 Heparin - SQ 5,000 unit TID [facility] Administration Hydralazine HCl 50 mg 05/03/17 22:00 05/05/17 13:10 Apresoline - PO 50 mg TID JOSLYN Administration Nitroglycerin/Dextrose 25 mg in 250 mls @ 30 mls/hr 05/03/17 13:15 05/04/17 19:00 Nitroglycerin 25mg/D5w 250ml IVPB 0 mcg/min TITR JOSLYN 0 mls/hr 50 MCG/MIN Titration Insulin Aspart 1 vial 05/03/17 16:30 05/05/17 17:50 Novolog Vial Sliding Scale - SQ 2 units ACHS [facility] Administration Protocol Insulin Detemir 14 units 05/03/17 22:00 05/04/17 21:55 Levemir Vial SQ 14 units HS JOSLYN Administration Lisinopril 5 mg 05/04/17 10:00 05/05/17 09:36 Prinivil PO 5 mg DAILY JOSLYN Administration Magnesium Oxide 400 mg 05/05/17 10:00 05/05/17 11:16 Mag-Ox - PO 400 mg BID JOSLYN Administration Mupirocin 1 applic 05/03/17 22:00 05/05/17 09:35 Bactroban Ointment (For Decolonization) - NS 05/08/17 21:59 1 applic BID JOSLYN Administration Olanzapine 10 mg 05/03/17 22:00 05/05/17 09:36 Zyprexa - PO 10 mg BID JOSLYN Administration Oxycodone HCl 10 mg 05/05/17 15:14 05/05/17 15:19 Roxicodone - PO 10 mg Q8H PRN Administration PAIN LEVEL 6-10 Potassium Chloride 40 meq 05/04/17 10:00 05/05/17 09:36 Potassium Chloride Oral Liquid PO 40 meq BID JOSLYN Administration ASSESSMENT/PLAN: 61yo F with history of diastolic CHF, COPD, DM, morbid obesity, HTN, HLD, schizophrenia/bipolar disorder with frequent admissions for hypoxic respiratory failure. This admission acute on chronic CHF exacerbation compared to COPD exacerbation on previous 1) Acute hypoxic respiratory failure --2/2 CHF exacerbation --Off BiPap currently; maintain on NC --Maintain SpO2>90% --titrate down from 5L currently 2) Acute on chronic diastolic CHF --Recent echo noted --Not reliable with home medications --Off Nitro gtt --Lasix 40mg IVP to be continued --Continue home Coreg 12.5mg BID --Continue ASA 81mg --Continue Lipitor 40mg HS 3) Acute anemia --No overt signs of bleeding --Previously pt has refused colonoscopy and GI work-up on previous hospital admission --S/P 1U PRBC (give lasix push dose after each unit to avoid increased fluid overload) --H/H stable today with appropriate transfusion response 4) DM --Most likely 2/2 to steroids with this acute rise --Continue Levemir 14U HS --ISS --BGM ACHS 5) HTN --Prinvil 5mg qdaily --Coreg as above --Norvasc 10 qdaily --Hydralazine 50 TID 6) Schizophrenia vs. Bipolar disorder --Continue Zyprexa --Continue Lexapro FEN: Fluids: Avoid due to volume overload Electrolyte abnormalities: Hypokalemia (replete with KDur as needed0 Nutrition: NPO except meds with use of BiPap; can advance to PPX DVT - Heparin SQ TID; mod risk GI - Protonix due to steroid use Dispo: Transfer to M/S if ICU team agrees Case discussed with Dr. Richard Reed, DO - Internal Medicine PGY-1 Visit type - Emergency Visit Emergency Visit: No - New Patient This patient is new to me today: No - Critical Care Critical Care patient: No
[2017-05-05] MEDS ORDERED: NITROGLYCERIN 25MG/D5W 250ML 25 MG/250 ML ML IVPB SCH (21:00)
[2017-05-05] MEDS ORDERED: INSULIN (NOVOLOG) ASPART 100 UNITS/ML 10ML VIAL ONE (21:18)
[2017-05-05] MEDS: ATORVASTATIN CA 40 MG TABLET (FP) PO SCH (21:38)
[2017-05-05] MEDS: MAGNESIUM OXIDE 400 MG TABLET (FP) PO SCH (21:38)
[2017-05-05] MEDS: INSULIN DETEMIR 100 UNITS/ML MDV SQ SCH (21:39)
[2017-05-05] MEDS ORDERED: MUPIROCIN 2% TOPICAL OINTMENT FOR DECOLONIZATION NS SCH (22:00)
[2017-05-05] MEDS ORDERED: CHLORHEXIDINE GLUCONATE 4% CLEANSER FOR DECOLONIZATION TP SCH (22:00)
[2017-05-06] MEDS: ACETAMINOPHEN 325 MG TABLET (FP) PO PRN ×2 (05:40→14:32)
[2017-05-06] MEDS: hydrALAZINE HCL 25 MG TABLET (FP) PO SCH (05:40)
[2017-05-06] MEDS: HEPARIN NA (PORCINE) 5,000 UNITS/ML 1ML VIAL SQ SCH ×3 (05:41→22:27)
[2017-05-06] MEDS: INSULIN SLIDING SCALE (NOVOLOG) 1 VIAL SQ SCH ×4 (06:45→22:27)
[2017-05-06] MEDS ORDERED: INSULIN (NOVOLOG) ASPART 100 UNITS/ML 10ML VIAL ONE ×2 (06:54→22:04)
[2017-05-06] MEDS: oxyCODONE HCL 5 MG TABLET PO PRN ×2 (08:43→19:43)
[2017-05-06 08:55] LABS: HEMATOCRIT 25.2 % (32.4-45.2); HEMOGLOBIN 7.5 GM/dL (10.7-15.3); MCH 24.8 pg (25.7-33.7); MCHC 29.9 g/dl (32.0-36.0); MEAN PLT VOLUME 7.4 fl (7.5-11.1); PLATELET COUNT 248 K/MM3 (134-434); RBC 3.03 M/mm3 (3.60-5.2); RDW 23.2 % (11.6-15.6); WHITE BLOOD COUNT 4.8 K/mm3 (4.0-10.0)
[2017-05-06 09:24] LABS: ALBUMIN 2.7 g/dl (3.4-5.0); ALK PHOS 86 U/L (45-117); ANION GAP 8 (8-16); BILIRUBIN,TOTAL 0.5 mg/dL (0.2-1.0); BLOOD UREA NITROGEN 16 mg/dL (7-18); CALCIUM 7.2 mg/dL (8.5-10.1); CHLORIDE 104 mmol/L (98-107); CO2 30 mmol/L (21-32); CREATININE 1.2 mg/dL (0.55-1.02); GLUCOSE,RANDOM 116 mg/dL (74-106); MAGNESIUM 1.3 mg/dL (1.8-2.4); POTASSIUM 4.2 mmol/L (3.5-5.1); SGOT/AST 21 U/L (15-37); SGPT/ALT 27 U/L (12-78); SODIUM 142 mmol/L (136-145); TOT PROT 6.3 g/dl (6.4-8.2)
[2017-05-06] MEDS ORDERED: ESCITALOPRAM OXALATE 10 MG TABLET (FP) ONE (09:57)
[2017-05-06] MEDS ORDERED: PT OWN MED DRAWER 7, Y5N ONE ×2 (09:58→22:05)
[2017-05-06] MEDS ORDERED: FUROSEMIDE 40 MG/4 ML INJECTABLE VIAL IVPUSH SCH (10:00)
[2017-05-06] MEDS ORDERED: LISINOPRIL 5 MG TABLET (FP) PO SCH (10:00)
[2017-05-06] MEDS: amLODIPine BESYLATE 10 MG TABLET (FP) PO SCH (10:18)
[2017-05-06] MEDS: MAGNESIUM OXIDE 400 MG TABLET (FP) PO SCH ×2 (10:18→22:27)
[2017-05-06] MEDS: CARVEDILOL 12.5 MG TABLET (FP) PO SCH ×2 (10:19→22:27)
[2017-05-06] MEDS: OLANZapine 10 MG TABLET PO SCH ×2 (10:19→22:27)
[2017-05-06] MEDS: ASPIRIN COATED 81 MG TABLET.EC PO SCH (10:19)
[2017-05-06] MEDS: ESCITALOPRAM OXALATE 20 MG TABLET (FP) PO SCH (10:19)
[2017-05-06 10:20] LABS: ANISOCYTOSIS 2+; MACROCYTOSIS 1+; PLATELET ESTIMATE NORMAL
--- NOTE | 2017-05-06 12:14 | PN ---
Progress Note (short form) - Note Progress Note: Chief Complaint: Events noted, notes reviewed, denies any chest pain or dyspnea , stating that she wants to be D/C home History of Present Illness: Seen and examined. Events noted, notes reviewed, denies any chest pain or dyspnea, stating that she wants to be D/C home Echocardiography performed 03/27/17 revealed normal left ventricular systolic function, moderate aortic valve sclerosis Medications: Current Medications Acetaminophen (Tylenol -) 650 mg PO Q8H PRN PRN Reason: PAIN LEVEL 6-10 Last Admin: 05/06/17 05:40 Dose: 650 mg Albuterol/Ipratropium (Duoneb -) 1 amp NEB Q6H PRN PRN Reason: SHORTNESS OF BREATH Amlodipine Besylate (Norvasc -) 10 mg PO DAILY [facility] Last Admin: 05/06/17 10:18 Dose: 10 mg Aspirin (Ecotrin -) 81 mg PO DAILY [facility] Last Admin: 05/06/17 10:19 Dose: 81 mg Atorvastatin Calcium (Lipitor -) 40 mg PO HS [facility] Last Admin: 05/05/17 21:38 Dose: 40 mg Carvedilol (Coreg -) 12.5 mg PO BID [facility] Last Admin: 05/06/17 10:19 Dose: 12.5 mg Escitalopram Oxalate (Lexapro -) 20 mg PO DAILY [facility] Last Admin: 05/06/17 10:19 Dose: 20 mg Furosemide (Lasix Injection -) 40 mg IVPUSH DAILY [facility] Last Admin: 05/06/17 10:18 Dose: 40 mg Heparin Sodium (Porcine) (Heparin -) 5,000 unit SQ TID [facility] Last Admin: 05/06/17 05:41 Dose: 5,000 unit Hydralazine HCl (Apresoline -) 50 mg PO TID [facility] Last Admin: 05/06/17 05:40 Dose: 50 mg Nitroglycerin/Dextrose (Nitroglycerin 25mg/D5w 250ml) 25 mg in 250 mls @ 30 mls /hr IVPB TITR [facility] PRN Reason: 50 MCG/MIN Last Admin: 05/05/17 21:15 Dose: Not Given Insulin Aspart (Novolog Vial Sliding Scale -) 1 vial SQ ACHS [facility] PRN Reason: Protocol Last Admin: 05/06/17 11:43 Dose: 2 units Insulin Detemir (Levemir Vial) 14 units SQ HS [facility] Last Admin: 05/05/17 21:39 Dose: 14 units Lisinopril (Prinivil) 5 mg PO DAILY [facility] Last Admin: 05/06/17 10:18 Dose: 5 mg Magnesium Oxide (Mag-Ox -) 400 mg PO BID [facility] Last Admin: 05/06/17 10:18 Dose: 400 mg Olanzapine (Zyprexa -) 10 mg PO BID [facility] Last Admin: 05/06/17 10:19 Dose: 10 mg Oxycodone HCl (Roxicodone -) 10 mg PO Q8H PRN PRN Reason: PAIN LEVEL 6-10 Last Admin: 05/06/17 08:43 Dose: 10 mg Vital Signs: Last Vital Signs Temp Pulse Resp BP Pulse Ox 98.8 F 87 18 130/65 97 05/06/17 08:00 05/06/17 08:00 05/06/17 08:00 05/06/17 08:00 05/06/17 09:00 Intake & Output 05/03/17 05/04/17 05/05/17 05/06/17 23:59 23:59 23:59 23:59 Intake Total 1250 1400 0 Output Total 900 2850 1500 Balance -900 -1600 -100 0 Weight 244 lb 1 oz 243 lb 9.773 oz 250 lb 11.2 oz Neck: Supple Negative JVD bilateral carotid bruit probably transmitted heart murmur Cardiovascular: S1 S2 regular rate rhythm grade 2/6 systolic ejection murmur Respiratory: Diminished breath sounds at the bases Gastrointestinal: Soft Benign Normal Bowel Sounds Ext: No Edema Labs: CBC, BMP 05/06/17 07:00 05/06/17 07:00 Hepatic Panel Total Bilirubin 0.5 mg/dL (0.2-1.0) 05/06/17 07:00 AST 21 U/L (15-37) D 05/06/17 07:00 ALT 27 U/L (12-78) 05/06/17 07:00 Alkaline Phosphatase 86 U/L (45-117) 05/06/17 07:00 Albumin 2.7 g/dl (3.4-5.0) L 05/06/17 07:00 INR, PTT INR 1.03 (0.82-1.09) 05/03/17 13:18 Assessment/Plan ASSESSMENT: 1. Post acute hypoxic/hypercapneic respiratory failure post extubation most likely related to exacerbation of reactive airway disease/chronic obstructive pulmonary disease, resolving 2. Acute on chronic class II [place] [employer] classification diastolic left ventricular congestive heart failure, resolving 3. Probable CAD angina pectoris 4. Hypertensive cardiovascular disease 5. Diabetes mellitus 6. History of schizophrenia/bipolar disorder 7. History of DIRK 8. CKD 9. anemia 10. Exogenous obesity PLAN: 1. Continue Coreg and titrate as needed and as tolerated 2. Continue Prinivil and titrate as needed and as tolerated, would recommend D/ C Hydarlazine 3. Diuretics IV Lasix with close monitoring of renal function 4. Continue Norvasc 5. Continue Lipitor 6. Daily Aspirin 7. Patient will eventually require myocardial perfusion imaging study to assess severity of coronary artery disease, can be performed on outpatient basis 8. Bronchodilators and Steroids as per primary/pulmonary team Rin Shaw MD
--- NOTE | 2017-05-06 14:13 | PN ---
Progress Note (short form) - Note Progress Note: PULMONARY States breathing is better today. Still some cough and wheezing. When first encountered, she was off oxygen and was saturating 77% on room air. Last Vital Signs Temp Pulse Resp BP Pulse Ox 98.8 F 87 18 130/65 97 05/06/17 08:00 05/06/17 08:00 05/06/17 08:00 05/06/17 08:00 05/06/17 09:00 Gen: somnolent but arousable Heart: RRR Lung: distant breath sounds, scattered rhonchi, wheezes Abd: soft, nontender Ext: + edema CBC, BMP 05/06/17 07:00 05/06/17 07:00 Active Medications Acetaminophen (Tylenol -) 650 mg PO Q8H PRN PRN Reason: PAIN LEVEL 6-10 Last Admin: 05/06/17 05:40 Dose: 650 mg Albuterol/Ipratropium (Duoneb -) 1 amp NEB Q6H PRN PRN Reason: SHORTNESS OF BREATH Amlodipine Besylate (Norvasc -) 10 mg PO DAILY [facility] Last Admin: 05/06/17 10:18 Dose: 10 mg Aspirin (Ecotrin -) 81 mg PO DAILY [facility] Last Admin: 05/06/17 10:19 Dose: 81 mg Atorvastatin Calcium (Lipitor -) 40 mg PO HS [facility] Last Admin: 05/05/17 21:38 Dose: 40 mg Carvedilol (Coreg -) 12.5 mg PO BID [facility] Last Admin: 05/06/17 10:19 Dose: 12.5 mg Escitalopram Oxalate (Lexapro -) 20 mg PO DAILY [facility] Last Admin: 05/06/17 10:19 Dose: 20 mg Furosemide (Lasix Injection -) 40 mg IVPUSH DAILY [facility] Last Admin: 05/06/17 10:18 Dose: 40 mg Heparin Sodium (Porcine) (Heparin -) 5,000 unit SQ TID [facility] Last Admin: 05/06/17 05:41 Dose: 5,000 unit Hydralazine HCl (Apresoline -) 25 mg PO BID [facility] Nitroglycerin/Dextrose (Nitroglycerin 25mg/D5w 250ml) 25 mg in 250 mls @ 30 mls /hr IVPB TITR [facility] PRN Reason: 50 MCG/MIN Last Admin: 05/05/17 21:15 Dose: Not Given Insulin Aspart (Novolog Vial Sliding Scale -) 1 vial SQ ACHS [facility] PRN Reason: Protocol Last Admin: 05/06/17 11:43 Dose: 2 units Insulin Detemir (Levemir Vial) 14 units SQ HS [facility] Last Admin: 05/05/17 21:39 Dose: 14 units Lisinopril (Prinivil) 20 mg PO DAILY [facility] Magnesium Oxide (Mag-Ox -) 400 mg PO BID [facility] Last Admin: 05/06/17 10:18 Dose: 400 mg Olanzapine (Zyprexa -) 10 mg PO BID [facility] Last Admin: 05/06/17 10:19 Dose: 10 mg Oxycodone HCl (Roxicodone -) 10 mg PO Q8H PRN PRN Reason: PAIN LEVEL 6-10 Last Admin: 05/06/17 08:43 Dose: 10 mg A/P Acute on Chronic Hypoxic and Hypercapneic Respiratory Failure Acute on Chronic Diastolic Heart Failure CAD Acute COPD Exacerbation HTN DM CKD UTI Morbid Obesity DIRK/OHS - continue lasix - monitor urine output, creatinine - daily weights - REJI-I, beta misael - inhaled bronchodilators - O2 to keep Spo2 >86% - BiPAP at night and PRN during day - complete antibiotics - DVT prophylaxis
--- NOTE | 2017-05-06 15:27 | PN ---
Progress Note (short form) - Note Progress Note: requesting to go home. states she does not want to be here. that she will get 24H aid to help her with her medications as she has been unable to comply with them in the past. denies CP, SOB, fever, chills, N/V/C/D Current Medications Generic Name Dose Route Start Last Admin Trade Name Freq PRN Reason Stop Dose Admin Acetaminophen 650 mg 05/05/17 15:14 05/06/17 14:32 Tylenol - PO 650 mg Q8H PRN Administration PAIN LEVEL 6-10 Albuterol/Ipratropium 1 amp 05/05/17 21:00 Duoneb - NEB Q6H PRN SHORTNESS OF BREATH Amlodipine Besylate 10 mg 05/06/17 10:00 05/06/17 10:18 Norvasc - PO 10 mg DAILY JOSLYN Administration Aspirin 81 mg 05/06/17 10:00 05/06/17 10:19 Ecotrin - PO 81 mg DAILY JOSLYN Administration Atorvastatin Calcium 40 mg 05/05/17 22:00 05/05/17 21:38 Lipitor - PO 40 mg HS JOSLYN Administration Carvedilol 12.5 mg 05/05/17 22:00 05/06/17 10:19 Coreg - PO 12.5 mg BID JOSLYN Administration Escitalopram Oxalate 20 mg 05/06/17 10:00 05/06/17 10:19 Lexapro - PO 20 mg DAILY JOSLYN Administration Furosemide 40 mg 05/06/17 10:00 05/06/17 10:18 Lasix Injection - IVPUSH 40 mg DAILY JOSLYN Administration Heparin Sodium (Porcine) 5,000 unit 05/05/17 22:00 05/06/17 14:32 Heparin - SQ 5,000 unit TID JOSLYN Administration Hydralazine HCl 25 mg 05/06/17 22:00 Apresoline - PO BID JOSLYN Nitroglycerin/Dextrose 25 mg in 250 mls @ 30 mls/hr 05/05/17 21:00 05/05/17 21:15 Nitroglycerin 25mg/D5w 250ml IVPB Not Given TITR JOSLYN 50 MCG/MIN Insulin Aspart 1 vial 05/05/17 22:00 05/06/17 11:43 Novolog Vial Sliding Scale - SQ 2 units ACHS JOSLYN Administration Protocol Insulin Detemir 14 units 05/05/17 22:00 05/05/17 21:39 Levemir Vial SQ 14 units HS JOSLYN Administration Lisinopril 20 mg 05/06/17 14:00 Prinivil PO DAILY [facility]OS[facility] Magnesium Oxide 400 mg 05/05/17 22:00 05/06/17 10:18 Mag-Ox - PO 400 mg BID JOSLYN Administration Olanzapine 10 mg 05/05/17 22:00 05/06/17 10:19 Zyprexa - PO 10 mg BID JOSLYN Administration Oxycodone HCl 10 mg 05/05/17 15:14 05/06/17 08:43 Roxicodone - PO 10 mg Q8H PRN Administration PAIN LEVEL 6-10 Last Vital Signs Temp Pulse Resp BP Pulse Ox 97.6 F 80 20 120/80 97 05/06/17 14:48 05/06/17 14:48 05/06/17 14:48 05/06/17 14:48 05/06/17 09:00 Intake & Output 05/03/17 05/04/17 05/05/17 05/06/17 23:59 23:59 23:59 23:59 Intake Total 1250 1400 0 Output Total 900 2850 1500 Balance -900 -1600 -100 0 Weight 244 lb 1 oz 243 lb 9.773 oz 250 lb 11.2 oz General NAD CV S1 S2 RRR Lungs coarse breath sounds anteriorly, decrease B/L bases Abdomen soft NT/ND Extremities 2+ pitting edema CBCD WBC 4.8 K/mm3 (4.0-10.0) 05/06/17 07:00 RBC 3.03 M/mm3 (3.60-5.2) L 05/06/17 07:00 Hgb 7.5 GM/dL (10.7-15.3) L 05/06/17 07:00 Hct 25.2 % (32.4-45.2) L 05/06/17 07:00 MCV 83.0 fl (80-96) 05/06/17 07:00 MCHC 29.9 g/dl (32.0-36.0) L 05/06/17 07:00 RDW 23.2 % (11.6-15.6) H 05/06/17 07:00 Plt Count 248 K/MM3 (134-434) 05/06/17 07:00 MPV 7.4 fl (7.5-11.1) L 05/06/17 07:00 CMP Sodium 142 mmol/L (136-145) 05/06/17 07:00 Potassium 4.2 mmol/L (3.5-5.1) 05/06/17 07:00 Chloride 104 mmol/L (98-107) 05/06/17 07:00 Carbon Dioxide 30 mmol/L (21-32) 05/06/17 07:00 Anion Gap 8 (8-16) 05/06/17 07:00 BUN 16 mg/dL (7-18) 05/06/17 07:00 Creatinine 1.2 mg/dL (0.55-1.02) H 05/06/17 07:00 Creat Clearance w eGFR 45.52 (>60) 05/06/17 07:00 Calcium 7.2 mg/dL (8.5-10.1) L 05/06/17 07:00 Total Bilirubin 0.5 mg/dL (0.2-1.0) 05/06/17 07:00 AST 21 U/L (15-37) D 05/06/17 07:00 ALT 27 U/L (12-78) 05/06/17 07:00 Alkaline Phosphatase 86 U/L (45-117) 05/06/17 07:00 Total Protein 6.3 g/dl (6.4-8.2) L 05/06/17 07:00 Albumin 2.7 g/dl (3.4-5.0) L 05/06/17 07:00 ASSESSMENT AND PLAN: 61 yo F with PMHx of morbid obesity, Diastolic HF, COPD, suspected DIRK, NIDDM, HTN, HLD, schizophrenia/bipolar disorder, frequent recent admissions with hypoxic/hypercapnic respiratory failure presents with similar symptoms 1. Acute hypoxic respiratory failure-clinically improved. saturating 96% on 3L NC. bipap at night. pulmonary on board 2. Acute on chronic diastolic CHF-hx of non-compliance. increase in weight. will increase lasix to 40mg BID. titrate up heart failure therapy as tolerated. cont coreg/asa/statin. cardio on board 3. Acute anemia- no signs of bleeding. has refused colonoscopy in the past. Received 1 unit PRBC this admission, monitor Hgb. txn as needed. will likely require another txn prior to discharge. 4. hypokalemia-resolved 5. Hypomagnesmeia- Mg 800mg 6. DM- steroid induced. on levemir 14 units HS and iss. cont 7. HTN- controlled.will d/c hydralazine in provide more room for diuresis. 8. Schizophrenia- zyprexa. 9. CKD- at baseline 10. DVT ppx- hep sq 11. concern pt will not be compliant as returned to hospital a week after discharge. will need to determine competency. consult psych to help determine if safe for pt to go home. Visit type - Emergency Visit Emergency Visit: Yes ED Registration Date: 05/03/17 Care time: The patient presented to the Emergency Department on the above date and was hospitalized for further evaluation of their emergent condition. - New Patient This patient is new to me today: No - Critical Care Critical Care patient: No - Discharge Referral Referred to [facility] Med [facility] No
[2017-05-06] MEDS ORDERED: FUROSEMIDE 40 MG/4 ML INJECTABLE VIAL IVPUSH ONE (16:04)
[2017-05-06] MEDS: LISINOPRIL 5 MG TABLET (FP) PO SCH (16:18)
[2017-05-06] MEDS: AMINO ACIDS/PROTEIN HYDROLYS 30 ML LIQUID.PKT PO SCH (16:52)
[2017-05-06] MEDS: NICOTINE 14 MG/24 HOURS TOPICAL PATCH TD SCH (20:42)
[2017-05-06] MEDS ORDERED: hydrALAZINE HCL 25 MG TABLET (FP) PO SCH (22:00)
[2017-05-06] MEDS: ATORVASTATIN CA 40 MG TABLET (FP) PO SCH (22:26)
[2017-05-06] MEDS: INSULIN DETEMIR 100 UNITS/ML MDV SQ SCH (22:27)
[2017-05-07] MEDS: INSULIN SLIDING SCALE (NOVOLOG) 1 VIAL SQ SCH ×4 (06:36→22:03)
[2017-05-07] MEDS: HEPARIN NA (PORCINE) 5,000 UNITS/ML 1ML VIAL SQ SCH ×3 (06:36→22:09)
[2017-05-07] MEDS: FUROSEMIDE 40 MG/4 ML INJECTABLE VIAL IVPUSH SCH ×2 (06:37→07:21)
[2017-05-07] MEDS: oxyCODONE HCL 5 MG TABLET PO PRN ×3 (06:42→21:58)
[2017-05-07] MEDS ORDERED: FUROSEMIDE 40 MG TABLET (FP) PO ONE (07:09)
[2017-05-07] MEDS: AMINO ACIDS/PROTEIN HYDROLYS 30 ML LIQUID.PKT PO SCH ×2 (07:46→16:36)
--- NOTE | 2017-05-07 07:51 | PN ---
Physical Exam: SUBJECTIVE: Patient wants to go home. Pt reports again she would want the 24h aid for medication help. Overnight, IV access was lost on pt and pt was given 80mg PO Lasix for her night-time dose. OBJECTIVE: Vital Signs Period Temp Pulse Resp BP Sys/Osei Pulse Ox Last 24 Hr 97.6 F-98.8 F 74-87 18-20 120-130/65-80 96-99 GENERAL: NAD, awake, alert, and fully oriented, in no acute distress. HEENT: No JVD, EOMI, PATRICE LUNGS: Rales in lower lobes bilaterally, no wheezes, no rhonchi, no accessory muscle use. HEART: RRR, S1, S2 without murmur ABDOMEN: Soft, nontender, nondistended, normoactive bowel sounds, no guarding, no rebound, no hepatomegaly EXTREMITIES: 2+ DP pulses, 2+ pitting edema to mid-leg PSYCH: Normal mood, normal affect. SKIN: Warm, dry, no rashes or lesions noted Laboratory Results - last 24 hr 05/03/17 05/06/17 05/06/17 16:06 07:00 07:00 WBC 4.8 RBC 3.03 L Hgb 7.5 L Hct 25.2 L MCV 83.0 MCH 24.8 L MCHC 29.9 L RDW 23.2 H Plt Count 248 MPV 7.4 L Neutrophils % No Result Required. Neutrophils % (Manual) 61.0 Band Neutrophils % 0.0 Lymphocytes % No Result Required. Lymphocytes % (Manual) 27.4 Monocytes % (Manual) 8 Eosinophils % (Manual) 1.1 Basophils % (Manual) 0.0 Myelocytes % (Man) 0 Metamyelocytes 0 Hypochromia 0 Platelet Estimate Normal Platelet Comment No clumping noted Polychromasia 2+ Poikilocytosis 0 Anisocytosis 2+ Microcytosis 1+ Macrocytosis 1+ Sodium 142 Potassium 4.2 Chloride 104 Carbon Dioxide 30 Anion Gap 8 BUN 16 Creatinine 1.2 H Creat Clearance w eGFR 45.52 POC Glucometer Random Glucose 116 H Calcium 7.2 L Phosphorus 3.0 Magnesium 1.3 L Total Bilirubin 0.5 AST 21 D ALT 27 Alkaline Phosphatase 86 Total Protein 6.3 L Albumin 2.7 L Blood Type O POSITIVE Antibody Screen Positive H Prewarmed Antibody Srcn Negative Antibody Identification Cancelled Antigen Identification Cancelled Crossmatch See Detail 05/06/17 05/06/17 05/06/17 11:41 16:54 22:25 WBC RBC Hgb Hct MCV MCH MCHC RDW Plt Count MPV Neutrophils % Neutrophils % (Manual) Band Neutrophils % Lymphocytes % Lymphocytes % (Manual) Monocytes % (Manual) Eosinophils % (Manual) Basophils % (Manual) Myelocytes % (Man) Metamyelocytes Hypochromia Platelet Estimate Platelet Comment Polychromasia Poikilocytosis Anisocytosis Microcytosis Macrocytosis Sodium Potassium Chloride Carbon Dioxide Anion Gap BUN Creatinine Creat Clearance w eGFR POC Glucometer 173 139 175 Random Glucose Calcium Phosphorus Magnesium Total Bilirubin AST ALT Alkaline Phosphatase Total Protein Albumin Blood Type Antibody Screen Prewarmed Antibody Srcn Antibody Identification Antigen Identification Crossmatch 05/07/17 06:34 WBC RBC Hgb Hct MCV MCH MCHC RDW Plt Count MPV Neutrophils % Neutrophils % (Manual) Band Neutrophils % Lymphocytes % Lymphocytes % (Manual) Monocytes % (Manual) Eosinophils % (Manual) Basophils % (Manual) Myelocytes % (Man) Metamyelocytes Hypochromia Platelet Estimate Platelet Comment Polychromasia Poikilocytosis Anisocytosis Microcytosis Macrocytosis Sodium Potassium Chloride Carbon Dioxide Anion Gap BUN Creatinine Creat Clearance w eGFR POC Glucometer 116 Random Glucose Calcium Phosphorus Magnesium Total Bilirubin AST ALT Alkaline Phosphatase Total Protein Albumin Blood Type Antibody Screen Prewarmed Antibody Srcn Antibody Identification Antigen Identification Crossmatch Active Medications Generic Name Dose Route Start Last Admin Trade Name Freq PRN Reason Stop Dose Admin Acetaminophen 650 mg 05/05/17 15:14 05/06/17 14:32 Tylenol - PO 650 mg Q8H PRN Administration PAIN LEVEL 6-10 Albuterol/Ipratropium 1 amp 05/05/17 21:00 Duoneb - NEB Q6H PRN SHORTNESS OF BREATH Amino Acids 30 ml 05/06/17 17:30 05/07/17 07:46 Prosource No Carb Liquid Pkt PO 30 ml BID@0800,1730 JOSLYN Administration Amlodipine Besylate 10 mg 05/06/17 10:00 05/06/17 10:18 Norvasc - PO 10 mg DAILY JOSLYN Administration Ascorbic Acid 500 mg 05/07/17 10:00 Vitamin C - PO DAILY JOSLYN Aspirin 81 mg 05/06/17 10:00 05/06/17 10:19 Ecotrin - PO 81 mg DAILY JOSLYN Administration Atorvastatin Calcium 40 mg 05/05/17 22:00 05/06/17 22:26 Lipitor - PO 40 mg HS [facility] Administration Carvedilol 12.5 mg 05/05/17 22:00 05/06/17 22:27 Coreg - PO 12.5 mg BID [facility] Administration Escitalopram Oxalate 20 mg 05/06/17 10:00 05/06/17 10:19 Lexapro - PO 20 mg DAILY JOSLYN Administration Furosemide 40 mg 05/07/17 06:00 05/07/17 07:21 Lasix Injection - IVPUSH Not Given BID@0600,1400 [facility] Heparin Sodium (Porcine) 5,000 unit 05/05/17 22:00 05/07/17 06:36 Heparin - SQ 5,000 unit TID [facility] Administration Insulin Aspart 1 vial 05/05/17 22:00 05/07/17 06:36 Novolog Vial Sliding Scale - SQ Not Given ACHS [facility] Protocol Insulin Detemir 14 units 05/05/17 22:00 05/06/17 22:27 Levemir Vial SQ 14 units HS [facility] Administration Lisinopril 20 mg 05/06/17 14:00 05/06/17 16:18 Prinivil PO Not Given DAILY [facility] Magnesium Oxide 400 mg 05/05/17 22:00 05/06/17 22:27 Mag-Ox - PO 400 mg BID [facility] Administration Multivitamins/Minerals/Vitamin C 1 tab 05/07/17 10:00 Tab-A-Vit - PO DAILY [facility] Nicotine 14 mg 05/06/17 20:30 05/06/17 20:42 Nicoderm Patch - TD 14 mg DAILY [facility] Administration Olanzapine 10 mg 05/05/17 22:00 05/06/17 22:27 Zyprexa - PO 10 mg BID [facility] Administration Oxycodone HCl 10 mg 05/05/17 15:14 05/07/17 06:42 Roxicodone - PO 10 mg Q8H PRN Administration PAIN LEVEL 6-10 ASSESSMENT/PLAN: 61yo F with h/o HTN, HLD, pre-diabetes, CAD, dCHF, hep c, CKD stage III-IV, COPD , schizophrenia, active smoker with presentation of SOB once again after recent hospitalization 1) Acute hypoxic hypercapnic respiratory distress --2/2 dCHF exacerbation --Improving --Maintain SpO2 88-92% to prevent V/Q mismatch worsening --Pulmonology on board --Pt received Lasix 80mg PO due to poor access this morning --May switch to oral to accommodate poor access in light of improving clinical exam --Last Echo 03/27/17: LV normal size and function --Daily weights; strict I&O's --Continue duonebs scheduled; albuterol q4h PRN --Continue CPAP HS while hospitalized --Pt cannot receive trilogy device or oxygen due to continued smoking 2) Acute normocytic anemia --H/H stable today (7.8 with delta +0.2) --Received 1UPRBC earlier with good response --Monitor CBC --Tranfusion threshold --Previously refused colonoscopy in prior admissions --Tranfusion threshold if < 7 without symptoms --Continue Iron supplementation 3) HTN --Currently 142/80 --Can discontinue hydralazine in light of high dose lasix --Continue home medication Norvasc 10mg qdaily Coreg 12.5 mg PO BID Lisinopril 5mg qdaily 4) Schizoprenia history --Not suicidal currently --Lexapro 20mg qDaily --Zyprexa 10mg PO BID 5) Iron deficiency anemia --Cont Iron supplementation --Monitor signs of constipation 6) SANTO vs CKD Cr 1.3 (baseline 0.9) --May be new baseline with cardio-renal syndrome diminishing function --Monitor BMP 7) Pre-diabetes --A1C this past month 6.2 (prior 5.6) --Diet counselling --Hyperglycemia iatrogenically induced due to steroids for her respiratory status FEN: Fluids: Avoid due to overload Electrolytes abnormalities: HypoMg (400mg BID Mag-Ox currently) Nutrition: Diabetic and sodium controlled PPX: DVT - Heparin SQ TID Dispo: Concern over compliance s/p discharge Code Status: Full code Case discussed with Dr. Richard Reed, DO - Internal Medicine PGY-1 Visit type - Emergency Visit Emergency Visit: No - New Patient This patient is new to me today: No - Critical Care Critical Care patient: No
[2017-05-07] MEDS ORDERED: INSULIN (NOVOLOG) ASPART 100 UNITS/ML 10ML VIAL ONE ×3 (07:53→16:42)
[2017-05-07 09:08] LABS: HEMOGLOBIN 7.8 GM/dL (10.7-15.3); MCH 24.5 pg (25.7-33.7); MCHC 29.9 g/dl (32.0-36.0); MEAN CELL VOLUME 82.1 fl (80-96); MEAN PLT VOLUME 7.5 fl (7.5-11.1); PLATELET COUNT 263 K/MM3 (134-434); RBC 3.17 M/mm3 (3.60-5.2)
[2017-05-07 09:39] LABS: ANION GAP 6 (8-16); BLOOD UREA NITROGEN 19 mg/dL (7-18); CALCIUM 7.6 mg/dL (8.5-10.1); CHLORIDE 103 mmol/L (98-107); CO2 29 mmol/L (21-32); CREATININE 1.3 mg/dL (0.55-1.02); GLUCOSE,RANDOM 98 mg/dL (74-106); MAGNESIUM 1.6 mg/dL (1.8-2.4); POTASSIUM 4.2 mmol/L (3.5-5.1); SODIUM 138 mmol/L (136-145)
[2017-05-07 10:06] LABS: ANISOCYTOSIS 3+; MACROCYTOSIS 1+; PLATELET ESTIMATE NORMAL; TARGET CELLS 1+
--- NOTE | 2017-05-07 10:36 | PN ---
Teaching Attending Note Name of Resident: Raghu Reed ATTENDING PHYSICIAN STATEMENT I saw and evaluated the patient. I reviewed the resident's note and discussed the case with the resident. I agree with the resident's findings and plan as documented. SUBJECTIVE:no complaints. very proactive today about her discharge and needing more help at home as she is unable to care for herself. deneis CP, SOB, fever, chills, cough, N/V/C/D OBJECTIVE: Last Vital Signs Temp Pulse Resp BP Pulse Ox 98.8 F 79 18 124/87 93 L 05/07/17 07:53 05/07/17 10:29 05/07/17 07:53 05/07/17 07:53 05/07/17 10:29 Intake & Output 05/04/17 05/05/17 05/06/17 05/07/17 23:59 23:59 23:59 23:59 Intake Total 1250 1400 850 0 Output Total 2850 1500 1200 Balance -1600 -100 -350 0 Weight 243 lb 9.773 oz 250 lb 11.2 oz 247 lb 1.6 oz General NAD CV S1 S2 RRR no murmur/rub/gallop Lungs decrased breath sounds B/L bases, no wheezing Extremities 2+ pitting edema ASSESSMENT AND PLAN: 61 yo F with PMHx of morbid obesity, Diastolic HF, COPD, suspected DIRK, NIDDM, HTN, HLD, schizophrenia/bipolar disorder, frequent recent admissions with hypoxic/hypercapnic respiratory failure presents with similar symptoms 1. Acute hypoxic respiratory failure-clinically improved. saturating 96% on 3L NC. bipap at night. pulmonary on board 2. Acute on chronic diastolic CHF-hx of non-compliance. lost IV access. unable to get for lasix IV. will switch to po. increase in weight. will increase lasix to 40mg BID. titrate up heart failure therapy as tolerated. cont coreg/asa/ statin. cardio on board 3. Acute anemia- no signs of bleeding. has refused colonoscopy in the past. Received 1 unit PRBC this admission, monitor Hgb. txn as needed. will likely require another txn prior to discharge. 4. hypokalemia-resolved 5. Hypomagnesmeia- Mg 800mg 6. DM- steroid induced. states she is unable to afford insulin as her insurance does not cover. will need to start po. metfromin allergy noted. start januvia and monitor sugars. d/c levemir. cont iss 7. HTN- controlled. on lisnopril increased dose. 8. Schizophrenia- zyprexa. 9. CKD- at baseline 10. DVT ppx- hep sq 11. will need to d/w SW option for discharge. as pt is high risk for return and non compliance. psych evaluation for competency.
[2017-05-07] MEDS ORDERED: PT OWN MED DRAWER 7, Y5N ONE ×2 (10:40→21:51)
[2017-05-07] MEDS: NICOTINE 14 MG/24 HOURS TOPICAL PATCH TD SCH (10:41)
[2017-05-07] MEDS: CARVEDILOL 12.5 MG TABLET (FP) PO SCH ×2 (10:42→21:57)
[2017-05-07] MEDS: ASPIRIN COATED 81 MG TABLET.EC PO SCH (10:42)
[2017-05-07] MEDS: ESCITALOPRAM OXALATE 20 MG TABLET (FP) PO SCH (10:42)
[2017-05-07] MEDS: MAGNESIUM OXIDE 400 MG TABLET (FP) PO SCH ×2 (10:42→21:58)
[2017-05-07] MEDS: ASCORBIC ACID 500 MG TABLET (FP) PO SCH (10:42)
[2017-05-07] MEDS: amLODIPine BESYLATE 10 MG TABLET (FP) PO SCH (10:42)
[2017-05-07] MEDS: OLANZapine 10 MG TABLET PO SCH ×2 (10:42→21:58)
[2017-05-07] MEDS: MULTIVITAMINS (DAILY MVI) TABLET (FP) PO SCH (10:43)
[2017-05-07] MEDS: LISINOPRIL 5 MG TABLET (FP) PO SCH (10:44)
[2017-05-07] MEDS ORDERED: sitaGLIPtin PHOSPHATE 50 MG TABLET PO ONE (11:30)
[2017-05-07] MEDS ORDERED: MAGNESIUM OXIDE 400 MG TABLET (FP) PO ONE (11:30)
--- NOTE | 2017-05-07 13:15 | PN ---
Progress Note (short form) - Note Progress Note: Chief Complaint: Events noted, notes reviewed, denies any chest pain or dyspnea History of Present Illness: Seen and examined. Events noted, notes reviewed, denies any chest pain or dyspnea Echocardiography performed 03/27/17 revealed normal left ventricular systolic function, moderate aortic valve sclerosis Medications: Current Medications Acetaminophen (Tylenol -) 650 mg PO Q8H PRN PRN Reason: PAIN LEVEL 6-10 Last Admin: 05/06/17 14:32 Dose: 650 mg Albuterol/Ipratropium (Duoneb -) 1 amp NEB Q6H PRN PRN Reason: SHORTNESS OF BREATH Amino Acids (Prosource No Carb Liquid Pkt) 30 ml PO BID@0800,1730 [facility] Last Admin: 05/07/17 07:46 Dose: 30 ml Amlodipine Besylate (Norvasc -) 10 mg PO DAILY [facility] Last Admin: 05/07/17 10:42 Dose: 10 mg Ascorbic Acid (Vitamin C -) 500 mg PO DAILY [facility] Last Admin: 05/07/17 10:42 Dose: 500 mg Aspirin (Ecotrin -) 81 mg PO DAILY [facility] Last Admin: 05/07/17 10:42 Dose: 81 mg Atorvastatin Calcium (Lipitor -) 40 mg PO HS [facility] Last Admin: 05/06/17 22:26 Dose: 40 mg Carvedilol (Coreg -) 12.5 mg PO BID [facility] Last Admin: 05/07/17 10:42 Dose: 12.5 mg Escitalopram Oxalate (Lexapro -) 20 mg PO DAILY [facility] Last Admin: 05/07/17 10:42 Dose: 20 mg Furosemide (Lasix -) 40 mg PO BID@0600,1400 [facility] Heparin Sodium (Porcine) (Heparin -) 5,000 unit SQ TID [facility] Last Admin: 05/07/17 06:36 Dose: 5,000 unit Insulin Aspart (Novolog Vial Sliding Scale -) 1 vial SQ ACHS [facility] PRN Reason: Protocol Last Admin: 05/07/17 11:39 Dose: Not Given Lisinopril (Prinivil) 20 mg PO DAILY [facility] Last Admin: 05/07/17 10:44 Dose: 20 mg Magnesium Oxide (Mag-Ox -) 400 mg PO BID [facility] Last Admin: 05/07/17 10:42 Dose: 400 mg Multivitamins/Minerals/Vitamin C (Tab-A-Vit -) 1 tab PO DAILY [facility] Last Admin: 05/07/17 10:43 Dose: 1 tab Nicotine (Nicoderm Patch -) 14 mg TD DAILY [facility] Last Admin: 05/07/17 10:41 Dose: 14 mg Olanzapine (Zyprexa -) 10 mg PO BID [facility] Last Admin: 05/07/17 10:42 Dose: 10 mg Oxycodone HCl (Roxicodone -) 10 mg PO Q8H PRN PRN Reason: PAIN LEVEL 6-10 Last Admin: 05/07/17 06:42 Dose: 10 mg Sitagliptin Phosphate (Januvia -) 50 mg PO DAILY@0700 [facility] Vital Signs: Last Vital Signs Temp Pulse Resp BP Pulse Ox 98.8 F 79 18 124/87 93 L 05/07/17 07:53 05/07/17 10:29 05/07/17 07:53 05/07/17 07:53 05/07/17 10:29 Intake & Output 05/04/17 05/05/17 05/06/17 05/07/17 23:59 23:59 23:59 23:59 Intake Total 1250 1400 850 0 Output Total 2850 1500 1200 Balance -1600 -100 -350 0 Weight 243 lb 9.773 oz 250 lb 11.2 oz 247 lb 1.6 oz Neck: Supple Negative JVD bilateral carotid bruit probably transmitted heart murmur Cardiovascular: S1 S2 regular rate rhythm grade 2/6 systolic ejection murmur Respiratory: Diminished breath sounds at the bases Gastrointestinal: Soft Benign Normal Bowel Sounds Ext: No Edema Labs: CBC, BMP 05/07/17 07:30 05/07/17 07:30 Assessment/Plan ASSESSMENT: 1. Post acute hypoxic/hypercapneic respiratory failure post extubation most likely related to exacerbation of reactive airway disease/chronic obstructive pulmonary disease, resolving 2. Acute on chronic class II [place] [employer] classification diastolic left ventricular congestive heart failure, resolving 3. Probable CAD angina pectoris 4. Hypertensive cardiovascular disease 5. Diabetes mellitus 6. History of schizophrenia/bipolar disorder 7. History of DIRK 8. CKD 9. anemia 10. Exogenous obesity PLAN: 1. Continue Coreg and titrate as needed and as tolerated 2. Continue Prinivil and titrate as needed and as tolerated 3. Continue PO Lasix with close monitoring of renal function 4. Continue Norvasc 5. Continue Lipitor 6. Daily Aspirin with cation considering the above noted anemia 7. Evaluation of anemia and transfusion as needed maintaining Hg equal or > 8.0 8. Patient will eventually require myocardial perfusion imaging study to assess severity of coronary artery disease, can be performed on outpatient basis 9. Bronchodilators and Steroids as per primary/pulmonary team Rin Shaw MD
--- NOTE | 2017-05-07 13:31 | PN ---
Progress Note (short form) - Note Progress Note: PULMONARY Breathing continues to slowly improve. Still some cough and wheezing. Last Vital Signs Temp Pulse Resp BP Pulse Ox 98.8 F 79 18 124/87 93 L 05/07/17 07:53 05/07/17 10:29 05/07/17 07:53 05/07/17 07:53 05/07/17 10:29 Gen: NAD at rest, more awake, alert Heart: RRR Lung: distant breath sounds, less scattered rhonchi, wheezes Abd: soft, nontender Ext: + edema CBC, BMP 05/07/17 07:30 05/07/17 07:30 Active Medications Acetaminophen (Tylenol -) 650 mg PO Q8H PRN PRN Reason: PAIN LEVEL 6-10 Last Admin: 05/06/17 14:32 Dose: 650 mg Albuterol/Ipratropium (Duoneb -) 1 amp NEB Q6H PRN PRN Reason: SHORTNESS OF BREATH Amino Acids (Prosource No Carb Liquid Pkt) 30 ml PO BID@0800,1730 [facility] Last Admin: 05/07/17 07:46 Dose: 30 ml Amlodipine Besylate (Norvasc -) 10 mg PO DAILY [facility] Last Admin: 05/07/17 10:42 Dose: 10 mg Ascorbic Acid (Vitamin C -) 500 mg PO DAILY [facility] Last Admin: 05/07/17 10:42 Dose: 500 mg Aspirin (Ecotrin -) 81 mg PO DAILY [facility] Last Admin: 05/07/17 10:42 Dose: 81 mg Atorvastatin Calcium (Lipitor -) 40 mg PO HS [facility] [place] Last Admin: 05/06/17 22:26 Dose: 40 mg Carvedilol (Coreg -) 12.5 mg PO BID [facility] [place] Last Admin: 05/07/17 10:42 Dose: 12.5 mg Escitalopram Oxalate (Lexapro -) 20 mg PO DAILY [facility] [place] Last Admin: 05/07/17 10:42 Dose: 20 mg Furosemide (Lasix -) 40 mg PO BID@0600,1400 [facility] [place] Heparin Sodium (Porcine) (Heparin -) 5,000 unit SQ TID [facility] [place] Last Admin: 05/07/17 06:36 Dose: 5,000 unit Insulin Aspart (Novolog Vial Sliding Scale -) 1 vial SQ ACHS [facility] [place] PRN Reason: Protocol Last Admin: 05/07/17 11:39 Dose: Not Given Lisinopril (Prinivil) 20 mg PO DAILY [facility] [place] Last Admin: 05/07/17 10:44 Dose: 20 mg Magnesium Oxide (Mag-Ox -) 400 mg PO BID [facility] [place] Last Admin: 05/07/17 10:42 Dose: 400 mg Multivitamins/Minerals/Vitamin C (Tab-A-Vit -) 1 tab PO DAILY [facility] [place] Last Admin: 05/07/17 10:43 Dose: 1 tab Nicotine (Nicoderm Patch -) 14 mg TD DAILY [facility] [place] Last Admin: 05/07/17 10:41 Dose: 14 mg Olanzapine (Zyprexa -) 10 mg PO BID [facility] [place] Last Admin: 05/07/17 10:42 Dose: 10 mg Oxycodone HCl (Roxicodone -) 10 mg PO Q8H PRN PRN Reason: PAIN LEVEL 6-10 Last Admin: 05/07/17 06:42 Dose: 10 mg Sitagliptin Phosphate (Januvia -) 50 mg PO DAILY@0700 [facility] A/P Acute on Chronic Hypoxic and Hypercapneic Respiratory Failure Acute on Chronic Diastolic Heart Failure CAD Acute COPD Exacerbation HTN DM CKD UTI Morbid Obesity DIRK/OHS - continue lasix - monitor urine output, creatinine - daily weights - REJI-I, beta misael - inhaled bronchodilators - O2 to keep Spo2 >86% - BiPAP at night and PRN during day - complete antibiotics - DVT prophylaxis
[2017-05-07] MEDS: FUROSEMIDE 40 MG TABLET (FP) PO SCH (13:59)
--- NOTE | 2017-05-07 15:26 | CON.PSY ---
Psychiatry Consult Chief Complaint: 61 year old female, looks much older4 willy her stated agr. Has a long history of Schizophrenia and depression. She has DM and pthervchronic mrdical conditiions, She apparantly is very non compliant with medical care. Patient of hazel is blaming [facility] for changing her meds constantly. she is refusinh top go to a [facility] , wants to go home with 24 hr care. - Previous Psychiatric Treatment Outpatient: Less than 6 mos ago Inpatient: 2 or more prior admissions - Previous Substance Abuse Treatment Outpatient: None Inpatient: None - Reason for Previous Treatment Reason for Previous Treatment: Major Depression, Psychotic Episode - Current Medications Current Medications: Active Medications Acetaminophen (Tylenol -) 650 mg PO Q8H PRN PRN Reason: PAIN LEVEL 6-10 Last Admin: 05/06/17 14:32 Dose: 650 mg Albuterol/Ipratropium (Duoneb -) 1 amp NEB Q6H PRN PRN Reason: SHORTNESS OF BREATH Amino Acids (Prosource No Carb Liquid Pkt) 30 ml PO BID@0800,1730 [facility] Last Admin: 05/07/17 07:46 Dose: 30 ml Amlodipine Besylate (Norvasc -) [address] [facility] Last Admin: 05/07/17 10:42 Dose: 10 mg Ascorbic Acid (Vitamin C -) [address] [facility] Last Admin: 05/07/17 10:42 Dose: 500 mg Aspirin (Ecotrin -) [address] [facility] Last Admin: 05/07/17 10:42 Dose: 81 mg Atorvastatin Calcium (Lipitor -) [address] [facility] Last Admin: 05/06/17 22:26 Dose: 40 mg Carvedilol (Coreg -) 12.[address] [facility] Last Admin: 05/07/17 10:42 Dose: 12.5 mg Escitalopram Oxalate (Lexapro -) [address] [facility] Last Admin: 05/07/17 10:42 Dose: 20 mg Furosemide (Lasix -) 40 mg PO BID@0600,1400 [facility] Last Admin: 05/07/17 13:59 Dose: 40 mg Heparin Sodium (Porcine) (Heparin -) 5,[address] [facility] Last Admin: 05/07/17 13:59 Dose: 5,000 unit Insulin Aspart (Novolog Vial Sliding Scale -) [address] [facility] PRN Reason: Protocol Last Admin: 05/07/17 11:39 Dose: Not Given Lisinopril (Prinivil) [address] [facility] Last Admin: 05/07/17 10:44 Dose: 20 mg Magnesium Oxide (Mag-Ox -) [address] [facility] Last Admin: 05/07/17 10:42 Dose: 400 mg Multivitamins/Minerals/Vitamin C (Tab-A-Vit -) [address] [facility] Last Admin: 05/07/17 10:43 Dose: 1 tab Nicotine (Nicoderm Patch -) [address] [facility] Last Admin: 05/07/17 10:41 Dose: 14 mg Olanzapine (Zyprexa -) [address] [facility] Last Admin: 05/07/17 10:42 Dose: 10 mg Oxycodone HCl (Roxicodone -) 10 mg PO Q8H PRN PRN Reason: PAIN LEVEL 6-10 Last Admin: 05/07/17 13:58 Dose: 10 mg Sitagliptin Phosphate (Januvia -) 50 mg PO DAILY@0700 [facility] - Allergies Allergies: Allergies Allergy/AdvReac Type Severity Reaction Status Date / Time ibuprofen [From Motrin IB] Allergy Verified 05/03/17 13:05 metformin Allergy Verified 05/03/17 13:05 Penicillins Allergy Verified 05/03/17 13:05 - Current Living Status Usual Living Arrangement: Alone - Current Mental Status Evaluation Appearance: Disheveled Attitude: Cooperative - Affect Affect: Constrictive Appropriateness: Appropriate to Content - Mood Mood: Euthymic - Speech/Language Expressive: Coherent - Psychomotor Activity Psychomotor Activity: Slowed - Thought Process Thought Process: Intact - Thought Content Hallucinations: Absent Delusions: Absent - Self Perception Self Perception: No Impairment - Cognition Attention: Alert Orientation: Time Memory, Immediate Recall: Intact Memory, Short Term: 2/3 Memory, Remote with Promptin/3 - Abstraction Proverb Interpretation: Intact Judgement: Minimally Impaired - Insight Insight: Intact - Impulse Control Impulse Control: Good Control - Suicidal Ideation Suicidal Ideation: No - Homicidal Ideation Homicidal Ideation: No Assessment/Plan 1) Continue with [facility] Psych meds. 2) Patient has the mental capacity to make decisions at this time about her medical care. 3) Psych follow up at [facility] [place].
[2017-05-07] MEDS: ATORVASTATIN CA 40 MG TABLET (FP) PO SCH (21:57)
[2017-05-08] MEDS: FUROSEMIDE 40 MG TABLET (FP) PO SCH ×3 (06:43→15:04)
[2017-05-08] MEDS: HEPARIN NA (PORCINE) 5,000 UNITS/ML 1ML VIAL SQ SCH ×3 (06:43→21:03)
[2017-05-08] MEDS: INSULIN SLIDING SCALE (NOVOLOG) 1 VIAL SQ SCH ×4 (06:44→21:03)
[2017-05-08] MEDS: sitaGLIPtin PHOSPHATE 50 MG TABLET PO SCH ×2 (06:44→07:16)
[2017-05-08] MEDS: AMINO ACIDS/PROTEIN HYDROLYS 30 ML LIQUID.PKT PO SCH ×2 (07:16→16:32)
[2017-05-08] MEDS: oxyCODONE HCL 5 MG TABLET PO PRN ×2 (08:16→21:02)
[2017-05-08] MEDS: ALBUTEROL SO4 2.5/IPRATROPIUM 0.5 INH SOL 3 ML VIAL.NEB. NEB PRN ×2 (08:20→21:20)
[2017-05-08] MEDS ORDERED: PT OWN MED DRAWER 7, Y5N ONE ×2 (10:11→20:44)
[2017-05-08] MEDS ORDERED: ESCITALOPRAM OXALATE 10 MG TABLET (FP) ONE (10:11)
[2017-05-08] MEDS ORDERED: INSULIN (NOVOLOG) ASPART 100 UNITS/ML 10ML VIAL ONE (10:11)
[2017-05-08] MEDS: ESCITALOPRAM OXALATE 20 MG TABLET (FP) PO SCH (10:14)
[2017-05-08] MEDS: ASPIRIN COATED 81 MG TABLET.EC PO SCH (10:14)
[2017-05-08] MEDS: amLODIPine BESYLATE 10 MG TABLET (FP) PO SCH (10:14)
[2017-05-08] MEDS: MULTIVITAMINS (DAILY MVI) TABLET (FP) PO SCH (10:14)
[2017-05-08] MEDS: LISINOPRIL 5 MG TABLET (FP) PO SCH (10:14)
[2017-05-08] MEDS: ASCORBIC ACID 500 MG TABLET (FP) PO SCH (10:14)
[2017-05-08] MEDS: CARVEDILOL 12.5 MG TABLET (FP) PO SCH (10:15)
[2017-05-08] MEDS: MAGNESIUM OXIDE 400 MG TABLET (FP) PO SCH ×2 (10:15→21:03)
[2017-05-08] MEDS: NICOTINE 14 MG/24 HOURS TOPICAL PATCH TD SCH (10:15)
[2017-05-08] MEDS: OLANZapine 10 MG TABLET PO SCH ×2 (10:16→21:03)
--- NOTE | 2017-05-08 10:22 | PN ---
Progress Note (short form) - Note Progress Note: Chief Complaint: Events noted, notes reviewed, denies any chest pain or dyspnea History of Present Illness: Seen and examined. Events noted, notes reviewed, denies any chest pain or dyspnea Echocardiography performed 03/27/17 revealed normal left ventricular systolic function, moderate aortic valve sclerosis Medications: Current Medications Acetaminophen (Tylenol -) 650 mg PO Q8H PRN PRN Reason: PAIN LEVEL 6-10 Last Admin: 05/06/17 14:32 Dose: 650 mg Albuterol/Ipratropium (Duoneb -) 1 amp NEB Q6H PRN PRN Reason: SHORTNESS OF BREATH Last Admin: 05/08/17 08:20 Dose: 1 amp Amino Acids (Prosource No Carb Liquid Pkt) 30 ml PO BID@0800,1730 [facility] Last Admin: 05/08/17 07:16 Dose: 30 ml Amlodipine Besylate (Norvasc -) [address] [facility] Last Admin: 05/08/17 10:14 Dose: 10 mg Ascorbic Acid (Vitamin C -) [address] [facility] Last Admin: 05/08/17 10:14 Dose: 500 mg Aspirin (Ecotrin -) [address] [facility] Last Admin: 05/08/17 10:14 Dose: 81 mg Atorvastatin Calcium (Lipitor -) [address] [facility] Last Admin: 05/07/17 21:57 Dose: 40 mg Carvedilol (Coreg -) 12.[address] [facility] Last Admin: 05/08/17 10:15 Dose: 12.5 mg Escitalopram Oxalate (Lexapro -) [address] [facility] Last Admin: 05/08/17 10:14 Dose: 20 mg Furosemide (Lasix -) 40 mg PO BID@0600,1400 [facility] Last Admin: 05/08/17 07:16 Dose: 40 mg Heparin Sodium (Porcine) (Heparin -) 5,[address] [facility] Last Admin: 05/08/17 06:43 Dose: Not Given Insulin Aspart (Novolog Vial Sliding Scale -) [address] [facility] PRN Reason: Protocol Last Admin: 05/08/17 06:44 Dose: Not Given Lisinopril (Prinivil) [address] [facility] Last Admin: 05/08/17 10:14 Dose: 20 mg Magnesium Oxide (Mag-Ox -) [address] [facility] Last Admin: 05/08/17 10:15 Dose: 400 mg Multivitamins/Minerals/Vitamin C (Tab-A-Vit -) [address] [facility] Last Admin: 05/08/17 10:14 Dose: 1 tab Nicotine (Nicoderm Patch -) [address] [facility] Last Admin: 05/08/17 10:15 Dose: 14 mg Olanzapine (Zyprexa -) [address] [facility] Last Admin: 05/08/17 10:16 Dose: 10 mg Oxycodone HCl (Roxicodone -) 10 mg PO Q8H PRN PRN Reason: PAIN LEVEL 6-10 Last Admin: 05/08/17 08:16 Dose: 10 mg Sitagliptin Phosphate (Januvia -) 50 mg PO DAILY@0700 [facility] Last Admin: 05/08/17 07:16 Dose: 50 mg Vital Signs: Last Vital Signs Temp Pulse Resp BP Pulse Ox 99.8 F H 75 20 140/88 99 05/08/17 05:47 05/08/17 05:47 05/08/17 05:47 05/08/17 05:47 05/07/17 20:50 Intake & Output 05/05/17 05/06/17 05/07/17 05/08/17 23:59 23:59 23:59 23:59 Intake Total 1400 850 600 Output Total 1500 1200 1200 Balance -100 -350 -600 Weight 243 lb 9.773 oz 250 lb 11.2 oz 247 lb 1.6 oz 248 lb Neck: Supple Negative JVD bilateral carotid bruit probably transmitted heart murmur Cardiovascular: S1 S2 regular rate rhythm grade 2/6 systolic ejection murmur Respiratory: Diminished breath sounds at the bases Gastrointestinal: Soft Benign Normal Bowel Sounds Ext: No Edema Labs: CBC, BMP 05/07/17 07:30 05/07/17 07:30 Assessment/Plan ASSESSMENT: 1. Post acute hypoxic/hypercapneic respiratory failure post extubation most likely related to exacerbation of reactive airway disease/chronic obstructive pulmonary disease, resolving 2. Acute on chronic class II [place] [employer] classification diastolic left ventricular congestive heart failure, resolved 3. Probable CAD angina pectoris 4. Hypertensive cardiovascular disease 5. Diabetes mellitus 6. History of schizophrenia/bipolar disorder 7. History of DIRK 8. CKD 9. anemia 10. Exogenous obesity PLAN: 1. Continue Coreg and titrate as needed and as tolerated 2. Continue Prinivil and titrate as needed and as tolerated 3. Continue PO Lasix with close monitoring of renal function 4. Continue Norvasc 5. Continue Lipitor 6. Daily Aspirin with cation considering the above noted anemia 7. Evaluation of anemia and transfusion as needed maintaining Hg equal or > 8.0 8. Patient will eventually require myocardial perfusion imaging study to assess severity of coronary artery disease, can be performed on outpatient basis 9. Bronchodilators and Steroids as per primary/pulmonary team Rin Shaw MD
--- NOTE | 2017-05-08 13:17 | PN ---
Progress Note (short form) - Note Progress Note: Breathing continues to improve. Still some residual cough. Reports that her urge to smoke is decreasing since she has been on the nicotene patch now for 3 days. No acute events overnight. Intake & Output 05/05/17 05/06/17 05/07/17 05/08/17 23:59 23:59 23:59 23:59 Intake Total 1400 850 600 250 Output Total 1500 1200 1200 Balance -100 -350 -600 250 Weight 243 lb 9.773 oz 250 lb 11.2 oz 247 lb 1.6 oz 248 lb Last Vital Signs Temp Pulse Resp BP Pulse Ox 97.6 F 76 20 117/58 92 L 05/08/17 09:00 05/08/17 09:00 05/08/17 09:00 05/08/17 09:00 05/08/17 09:00 Active Medications Acetaminophen (Tylenol -) 650 mg PO Q8H PRN PRN Reason: PAIN LEVEL 6-10 Last Admin: 05/06/17 14:32 Dose: 650 mg Albuterol/Ipratropium (Duoneb -) 1 amp NEB Q6H PRN PRN Reason: SHORTNESS OF BREATH Last Admin: 05/08/17 08:20 Dose: 1 amp Amino Acids (Prosource No Carb Liquid Pkt) 30 ml PO BID@0800,1730 [facility] Last Admin: 05/08/17 07:16 Dose: 30 ml Amlodipine Besylate (Norvasc -) 5 mg PO DAILY [facility] Ascorbic Acid (Vitamin C -) 500 mg PO DAILY [facility] Last Admin: 05/08/17 10:14 Dose: 500 mg Aspirin (Ecotrin -) 81 mg PO DAILY [facility] Last Admin: 05/08/17 10:14 Dose: 81 mg Atorvastatin Calcium (Lipitor -) 40 mg PO HS [facility] Last Admin: 05/07/17 21:57 Dose: 40 mg Carvedilol (Coreg -) 25 mg PO BID [facility] Escitalopram Oxalate (Lexapro -) 20 mg PO DAILY [facility] Last Admin: 05/08/17 10:14 Dose: 20 mg Furosemide (Lasix -) 40 mg PO BID@0600,1400 [facility] Last Admin: 05/08/17 07:16 Dose: 40 mg Heparin Sodium (Porcine) (Heparin -) 5,000 unit SQ TID [facility] Last Admin: 05/08/17 06:43 Dose: Not Given Insulin Aspart (Novolog Vial Sliding Scale -) 1 vial SQ ACHS [facility] PRN Reason: Protocol Last Admin: 05/08/17 10:22 Dose: 2 units Lisinopril (Prinivil) 40 mg PO DAILY [facility] Magnesium Oxide (Mag-Ox -) 400 mg PO BID [facility] Last Admin: 05/08/17 10:15 Dose: 400 mg Multivitamins/Minerals/Vitamin C (Tab-A-Vit -) 1 tab PO DAILY [facility] Last Admin: 05/08/17 10:14 Dose: 1 tab Nicotine (Nicoderm Patch -) 14 mg TD DAILY [facility] Last Admin: 05/08/17 10:15 Dose: 14 mg Olanzapine (Zyprexa -) 10 mg PO BID [facility] Last Admin: 05/08/17 10:16 Dose: 10 mg Oxycodone HCl (Roxicodone -) 10 mg PO Q8H PRN PRN Reason: PAIN LEVEL 6-10 Last Admin: 05/08/17 08:16 Dose: 10 mg Sitagliptin Phosphate (Januvia -) 50 mg PO DAILY@0700 [facility] Last Admin: 05/08/17 07:16 Dose: 50 mg Gen: NAD at rest, more awake, alert Heart: RRR Lung: distant breath sounds, less scattered rhonchi, wheezes Abd: soft, nontender Ext: + edema Laboratory Results - last 24 hr 05/07/17 05/07/17 05/08/17 16:36 22:00 10:19 POC Glucometer 153 137 193 A/P Acute on Chronic Hypoxic and Hypercapneic Respiratory Failure Acute on Chronic Diastolic Heart Failure CAD Acute COPD Exacerbation HTN DM CKD UTI Morbid Obesity DIRK/OHS - Lasix - monitor urine output, creatinine - daily weights - REJI-I, beta misael - inhaled bronchodilators - O2 to keep Spo2 >86% - BiPAP at night and PRN during day - complete antibiotics - DVT prophylaxis - D/C planning Dr Garcia
--- NOTE | 2017-05-08 16:10 | PN ---
Progress Note (short form) - Note Progress Note: asymptomatic. denies CP, SOB, fever, chills, N/v/C/d, cough Current Medications Generic Name Dose Route Start Last Admin Trade Name Camq PRN Reason Stop Dose Admin Acetaminophen 650 mg 05/05/17 15:14 05/06/17 14:32 Tylenol - PO 650 mg Q8H PRN Administration PAIN LEVEL 6-10 Albuterol/Ipratropium 1 amp 05/05/17 21:00 05/08/17 08:20 Duoneb - NEB 1 amp Q6H PRN Administration SHORTNESS OF BREATH Amino Acids 30 ml 05/06/17 17:30 05/08/17 07:16 Prosource No Carb Liquid Pkt PO 30 ml BID@0800,1730 [facility] Administration Amlodipine Besylate 5 mg 05/09/17 10:00 Norvasc - PO DAILY [facility] Ascorbic Acid 500 mg 05/07/17 10:00 05/08/17 10:14 Vitamin C - PO 500 mg DAILY [facility] Administration Aspirin 81 mg 05/06/17 10:00 05/08/17 10:14 Ecotrin - PO 81 mg DAILY [facility] Administration Atorvastatin Calcium 40 mg 05/05/17 22:00 05/07/17 21:57 Lipitor - PO 40 mg HS [facility] Administration Carvedilol 25 mg 05/08/17 22:00 Coreg - PO BID [facility] Escitalopram Oxalate 20 mg 05/06/17 10:00 05/08/17 10:14 Lexapro - PO 20 mg DAILY [facility] Administration Furosemide 40 mg 05/07/17 14:00 05/08/17 15:04 Lasix - PO 40 mg BID@0600,1400 [facility] Administration Heparin Sodium (Porcine) 5,000 unit 05/05/17 22:00 05/08/17 15:04 Heparin - SQ 5,000 unit TID [facility] Administration Insulin Aspart 1 vial 05/05/17 22:00 05/08/17 10:22 Novolog Vial Sliding Scale - SQ 2 units ACHS [facility] Administration Protocol Lisinopril 40 mg 05/09/17 10:00 Prinivil PO DAILY [facility] Magnesium Oxide 400 mg 05/05/17 22:00 05/08/17 10:15 Mag-Ox - PO 400 mg BID [facility] Administration Multivitamins/Minerals/Vitamin C 1 tab 05/07/17 10:00 05/08/17 10:14 Tab-A-Vit - PO 1 tab DAILY [facility] Administration Nicotine 14 mg 05/06/17 20:30 05/08/17 10:15 Nicoderm Patch - TD 14 mg DAILY [facility] Administration Olanzapine 10 mg 05/05/17 22:00 05/08/17 10:16 Zyprexa - PO 10 mg BID [facility] Administration Oxycodone HCl 10 mg 05/05/17 15:14 05/08/17 08:16 Roxicodone - PO 10 mg Q8H PRN Administration PAIN LEVEL 6-10 Sitagliptin Phosphate 50 mg 05/08/17 07:00 05/08/17 07:16 Januvia - PO 50 mg DAILY@0700 [facility] Administration Last Vital Signs Temp Pulse Resp BP Pulse Ox 98.4 F 67 20 94/52 92 L 05/08/17 14:46 05/08/17 14:46 05/08/17 14:46 05/08/17 14:46 05/08/17 09:00 Intake & Output 05/05/17 05/06/17 05/07/17 05/08/17 23:59 23:59 23:59 23:59 Intake Total 1400 850 600 450 Output Total 1500 1200 1200 Balance -100 -350 -600 450 Weight 243 lb 9.773 oz 250 lb 11.2 oz 247 lb 1.6 oz 248 lb General NAD CV S1 S2 RRR no murmur/rub/gallop Lungs decrased breath sounds B/L bases, no wheezing Extremities 1+ pitting edema ASSESSMENT AND PLAN: 61 yo F with PMHx of morbid obesity, Diastolic HF, COPD, suspected DIRK, NIDDM, HTN, HLD, schizophrenia/bipolar disorder, frequent recent admissions with hypoxic/hypercapnic respiratory failure presents with similar symptoms 1. Acute hypoxic respiratory failure-clinically improved. saturating 96% on RA. unable to set up home O2 due to patient smoking. pulmonary on board 2. Acute on chronic diastolic CHF-hx of non-compliance. tolerating lasix 40mg BID po. will continue for now. consider switching to once a day on discharge. cont coreg/asa/acei/statin. cardio on board 3. Acute anemia- no signs of bleeding. has refused colonoscopy in the past. Received 1 unit PRBC this admission, monitor Hgb. txn as needed. will likely require another txn prior to discharge. 4. Continuous nicotine dependence- finally expresses desire to quit smoking. start nicotine patch 5. Hypomagnesmeia- resolved 6. DM- steroid induced. states she is unable to afford insulin as her insurance does not cover. will need to start po. metfromin allergy noted. started januvia. sugars controlled. will cont to monitor. cont iss 7. HTN- controlled. cont lisinopril/norvasc. hydralazine was d/c this admission. 8. Schizophrenia- zyprexa. 9. CKD- at baseline 10. DVT ppx- hep sq 11. pt has competency to make her own decisions. wishes to go home but admits she needs help at home especially with her medications as she get confused filling the pill sorter. needs more help. Spoke sada head of , will set up VNS and coordination for [employer] to help with medication administration. However unable to coordinate today due to holiday. will be set up tomorrow. possible d/ c tomorrow Visit type - Emergency Visit Emergency Visit: Yes ED Registration Date: 05/03/17 Care time: The patient presented to the Emergency Department on the above date and was hospitalized for further evaluation of their emergent condition. - New Patient This patient is new to me today: No - Critical Care Critical Care patient: No - Discharge Referral Referred to [facility] Med P.C.: No
[2017-05-08] MEDS: ATORVASTATIN CA 40 MG TABLET (FP) PO SCH (21:03)
[2017-05-08] MEDS: CARVEDILOL 25 MG TABLET (FP) PO SCH (21:03)
[2017-05-09] MEDS: INSULIN SLIDING SCALE (NOVOLOG) 1 VIAL SQ SCH ×4 (06:35→22:15)
[2017-05-09] MEDS: HEPARIN NA (PORCINE) 5,000 UNITS/ML 1ML VIAL SQ SCH ×2 (06:35→15:17)
[2017-05-09] MEDS: FUROSEMIDE 40 MG TABLET (FP) PO SCH ×2 (06:35→15:16)
[2017-05-09] MEDS: sitaGLIPtin PHOSPHATE 50 MG TABLET PO SCH (06:35)
[2017-05-09] MEDS: oxyCODONE HCL 5 MG TABLET PO PRN ×2 (06:38→18:40)
[2017-05-09] MEDS: ACETAMINOPHEN 325 MG TABLET (FP) PO PRN (06:39)
[2017-05-09] MEDS ORDERED: PT OWN MED DRAWER 7, Y5N ONE ×3 (06:55→22:18)
[2017-05-09] MEDS ORDERED: ESCITALOPRAM OXALATE 10 MG TABLET (FP) ONE (09:32)
[2017-05-09] MEDS: LISINOPRIL 20 MG TABLET (FP) PO SCH (09:35)
[2017-05-09] MEDS: ASCORBIC ACID 500 MG TABLET (FP) PO SCH (09:35)
[2017-05-09] MEDS: OLANZapine 10 MG TABLET PO SCH (09:35)
[2017-05-09] MEDS: ASPIRIN COATED 81 MG TABLET.EC PO SCH (09:36)
[2017-05-09] MEDS: MAGNESIUM OXIDE 400 MG TABLET (FP) PO SCH (09:36)
[2017-05-09] MEDS: ESCITALOPRAM OXALATE 20 MG TABLET (FP) PO SCH (09:36)
[2017-05-09] MEDS: MULTIVITAMINS (DAILY MVI) TABLET (FP) PO SCH (09:36)
[2017-05-09] MEDS: amLODIPine BESYLATE 5 MG TABLET (FP) PO SCH (09:36)
[2017-05-09] MEDS: NICOTINE 14 MG/24 HOURS TOPICAL PATCH TD SCH (09:36)
[2017-05-09] MEDS: CARVEDILOL 25 MG TABLET (FP) PO SCH (09:36)
--- NOTE | 2017-05-09 09:36 | PN ---
Progress Note (short form) - Note Progress Note: Chief Complaint: Events noted, notes reviewed, denies any chest pain or dyspnea History of Present Illness: Seen and examined. Events noted, notes reviewed, denies any chest pain or dyspnea Echocardiography performed 03/27/17 revealed normal left ventricular systolic function, moderate aortic valve sclerosis Medications: Current Medications Acetaminophen (Tylenol -) 650 mg PO Q8H PRN PRN Reason: PAIN LEVEL 6-10 Last Admin: 05/09/17 06:39 Dose: 650 mg Albuterol/Ipratropium (Duoneb -) 1 amp NEB Q6H PRN PRN Reason: SHORTNESS OF BREATH Last Admin: 05/08/17 21:20 Dose: 1 amp Amino Acids (Prosource No Carb Liquid Pkt) 30 ml PO BID@0800,1730 [facility] Last Admin: 05/08/17 16:32 Dose: 30 ml Amlodipine Besylate (Norvasc -) 5 mg PO DAILY [facility] Ascorbic Acid (Vitamin C -) 500 mg PO DAILY [facility] Last Admin: 05/08/17 10:14 Dose: 500 mg Aspirin (Ecotrin -) 81 mg PO DAILY [facility] Last Admin: 05/08/17 10:14 Dose: 81 mg Atorvastatin Calcium (Lipitor -) 40 mg PO HS [facility] Last Admin: 05/08/17 21:03 Dose: 40 mg Carvedilol (Coreg -) 25 mg PO BID [facility] Last Admin: 05/08/17 21:03 Dose: 25 mg Escitalopram Oxalate (Lexapro -) 20 mg PO DAILY [facility] Last Admin: 05/08/17 10:14 Dose: 20 mg Furosemide (Lasix -) 40 mg PO BID@0600,1400 [facility] Last Admin: 05/09/17 06:35 Dose: 40 mg Heparin Sodium (Porcine) (Heparin -) 5,000 unit SQ TID [facility] Last Admin: 05/09/17 06:35 Dose: Not Given Insulin Aspart (Novolog Vial Sliding Scale -) 1 vial SQ ACHS [facility] PRN Reason: Protocol Last Admin: 05/09/17 06:35 Dose: Not Given Lisinopril (Prinivil) 40 mg PO DAILY [facility] Magnesium Oxide (Mag-Ox -) 400 mg PO BID [facility] Last Admin: 05/08/17 21:03 Dose: 400 mg Multivitamins/Minerals/Vitamin C (Tab-A-Vit -) 1 tab PO DAILY [facility] Last Admin: 05/08/17 10:14 Dose: 1 tab Nicotine (Nicoderm Patch -) 14 mg TD DAILY [facility] Last Admin: 05/08/17 10:15 Dose: 14 mg Olanzapine (Zyprexa -) 10 mg PO BID [facility] Last Admin: 05/08/17 21:03 Dose: 10 mg Oxycodone HCl (Roxicodone -) 10 mg PO Q8H PRN PRN Reason: PAIN LEVEL 6-10 Last Admin: 05/09/17 06:38 Dose: 10 mg Sitagliptin Phosphate (Januvia -) 50 mg PO DAILY@0700 [facility] Last Admin: 05/09/17 06:35 Dose: 50 mg Vital Signs: Last Vital Signs Temp Pulse Resp BP Pulse Ox 98.2 F 75 20 155/74 92 L 05/09/17 06:00 05/09/17 06:00 05/09/17 06:00 05/09/17 06:00 05/08/17 09:00 Intake & Output 05/06/17 05/07/17 05/08/17 05/09/17 23:59 23:59 23:59 23:59 Intake Total 850 600 650 Output Total 1200 1200 1200 Balance -350 -600 -550 Weight 250 lb 11.2 oz 247 lb 1.6 oz 248 lb 249 lb 7 oz Neck: Supple Negative JVD bilateral carotid bruit probably transmitted heart murmur Cardiovascular: S1 S2 regular rate rhythm grade 2/6 systolic ejection murmur Respiratory: Diminished breath sounds at the bases Gastrointestinal: Soft Benign Normal Bowel Sounds Ext: No Edema Labs: CBC, BMP 05/07/17 07:30 05/07/17 07:30 Assessment/Plan ASSESSMENT: 1. Post acute hypoxic/hypercapneic respiratory failure post extubation most likely related to exacerbation of reactive airway disease/chronic obstructive pulmonary disease, resolved 2. Acute on chronic class II [place] [employer] classification diastolic left ventricular congestive heart failure, resolved 3. CAD angina pectoris 4. Hypertensive cardiovascular disease 5. Diabetes mellitus 6. History of schizophrenia/bipolar disorder 7. History of DIRK 8. CKD 9. anemia 10. Exogenous obesity PLAN: 1. Continue Coreg 2. Continue Prinivil 3. Continue PO Lasix with close monitoring of renal function 4. Continue Norvasc 5. Continue Lipitor 6. Daily Aspirin with cation considering the above noted anemia 7. Evaluation of anemia and transfusion as needed maintaining Hg equal or > 8.0 8. As outlined in prior notes patient will eventually require myocardial perfusion imaging study to assess severity of coronary artery disease, can be performed on outpatient basis 9. Bronchodilators and Steroids as per primary/pulmonary team Rin Shaw MD
[2017-05-09] MEDS: AMINO ACIDS/PROTEIN HYDROLYS 30 ML LIQUID.PKT PO SCH ×2 (09:37→16:30)
[2017-05-09] MEDS ORDERED: INSULIN (NOVOLOG) ASPART 100 UNITS/ML 10ML VIAL ONE (11:26)
[2017-05-09] MEDS ORDERED: FUROSEMIDE 20 MG TABLET (FP) PO SCH (13:36)
--- NOTE | 2017-05-09 13:39 | PN ---
Progress Note, Physician History of Present Illness: PULMONARY ALERT,FEELING BETTER,COMFORTABLE,-SOB - Current Medication List Current Medications: Active Medications Acetaminophen (Tylenol -) 650 mg PO Q8H PRN PRN Reason: PAIN LEVEL 6-10 Last Admin: 05/09/17 06:39 Dose: 650 mg Albuterol/Ipratropium (Duoneb -) 1 amp NEB Q6H PRN PRN Reason: SHORTNESS OF BREATH Last Admin: 05/08/17 21:20 Dose: 1 amp Amino Acids (Prosource No Carb Liquid Pkt) 30 ml PO BID@0800,1730 [facility] Last Admin: 05/09/17 09:37 Dose: 30 ml Amlodipine Besylate (Norvasc -) 5 mg PO DAILY [facility] Last Admin: 05/09/17 09:36 Dose: 5 mg Ascorbic Acid (Vitamin C -) 500 mg PO DAILY [facility] Last Admin: 05/09/17 09:35 Dose: 500 mg Aspirin (Ecotrin -) 81 mg PO DAILY [facility] Last Admin: 05/09/17 09:36 Dose: 81 mg Atorvastatin Calcium (Lipitor -) 40 mg PO HS [facility] Last Admin: 05/08/17 21:03 Dose: 40 mg Carvedilol (Coreg -) 25 mg PO BID [facility] Last Admin: 05/09/17 09:36 Dose: 25 mg Escitalopram Oxalate (Lexapro -) 20 mg PO DAILY [facility] Last Admin: 05/09/17 09:36 Dose: 20 mg Furosemide (Lasix -) 40 mg PO BID@0600,1400 [facility] Last Admin: 05/09/17 06:35 Dose: 40 mg Heparin Sodium (Porcine) (Heparin -) 5,000 unit SQ TID [facility] Last Admin: 05/09/17 06:35 Dose: Not Given Insulin Aspart (Novolog Vial Sliding Scale -) 1 vial SQ ACHS [facility] PRN Reason: Protocol Last Admin: 05/09/17 11:30 Dose: Not Given Lisinopril (Prinivil) 40 mg PO DAILY [facility] Last Admin: 05/09/17 09:35 Dose: 40 mg Magnesium Oxide (Mag-Ox -) 400 mg PO BID [facility] Last Admin: 05/09/17 09:36 Dose: 400 mg Multivitamins/Minerals/Vitamin C (Tab-A-Vit -) 1 tab PO DAILY [facility] Last Admin: 01/16/18 09:36 Dose: 1 tab Nicotine (Nicoderm Patch -) 14 mg TD DAILY [facility] Last Admin: 05/09/17 09:36 Dose: 14 mg Olanzapine (Zyprexa -) 10 mg PO BID [facility] Last Admin: 05/09/17 09:35 Dose: 10 mg Oxycodone HCl (Roxicodone -) 10 mg PO Q8H PRN PRN Reason: PAIN LEVEL 6-10 Last Admin: 05/09/17 06:38 Dose: 10 mg Sitagliptin Phosphate (Januvia -) 50 mg PO DAILY@0700 [facility] Last Admin: 05/09/17 06:35 Dose: 50 mg - Objective Vital Signs: Vital Signs Temperature 97.8 F 05/09/17 10:00 Pulse Rate 76 05/09/17 10:00 Respiratory Rate 20 05/09/17 10:00 Blood Pressure 105/52 05/09/17 10:00 O2 Sat by Pulse Oximetry (%) 96 05/09/17 09:00 Constitutional: Yes: Calm, Obese Eyes: Yes: WNL HENT: Yes: WNL Neck: Yes: WNL Cardiovascular: Yes: Regular Rate and Rhythm, S1, S2 Respiratory: Yes: Diminished Gastrointestinal: Yes: Normal Bowel Sounds, Soft Extremities: Yes: WNL Edema: Yes Labs: CBC, BMP Problem List - Problems (1) CHF (congestive heart failure) Code(s): I50.9 - HEART FAILURE, UNSPECIFIED (2) Acute on chronic diastolic (congestive) heart failure Code(s): I50.33 - ACUTE ON CHRONIC DIASTOLIC (CONGESTIVE) HEART FAILURE (3) Acute respiratory failure with hypoxia and hypercapnia Code(s): J96.01 - ACUTE RESPIRATORY FAILURE WITH HYPOXIA; J96.02 - ACUTE RESPIRATORY FAILURE WITH HYPERCAPNIA (4) COPD exacerbation Code(s): J44.1 - CHRONIC OBSTRUCTIVE PULMONARY DISEASE W (ACUTE) EXACERBATION (5) Leg edema Code(s): R60.0 - LOCALIZED EDEMA (6) CAD (coronary artery disease) Code(s): I25.10 - ATHSCL HEART DISEASE OF [place] CORONARY ARTERY W/O ANG PCTRS Qualifiers: Coronary Disease-Associated Artery/Lesion type: [place] artery [place] vs. transplanted heart: [place] heart Associated angina: without angina Qualified Code(s): I25.10 - Atherosclerotic heart disease of [place] coronary artery without angina pectoris (7) COPD (chronic obstructive pulmonary disease) Code(s): J44.9 - CHRONIC OBSTRUCTIVE PULMONARY DISEASE, UNSPECIFIED Qualifiers: COPD type: unspecified COPD Qualified Code(s): J44.9 - Chronic obstructive pulmonary disease, unspecified (8) Chronic kidney insufficiency Code(s): N18.9 - CHRONIC KIDNEY DISEASE, UNSPECIFIED Qualifiers: Chronic kidney disease stage: unspecified stage Qualified Code(s): N18.9 - Chronic kidney disease, unspecified Assessment/Plan A/P Acute on Chronic Hypoxic and Hypercapneic Respiratory Failure Acute on Chronic Diastolic Heart Failure CAD Acute COPD Exacerbation HTN DM CKD UTI Morbid Obesity DIRK/OHS - lasix - monitor urine output, creatinine - REJI-I, beta misael - inhaled bronchodilators - O2 - BiPAP at night and PRN during day - DVT prophylaxis DR LOZANO
--- NOTE | 2017-05-09 14:38 | PN ---
Teaching Attending Note Name of Resident: Laurie Sunshine ATTENDING PHYSICIAN STATEMENT Time of evaluation: 10;35 AM I saw and evaluated the patient. I reviewed the resident's note and discussed the case with the resident. I agree with the resident's findings and plan as documented. SUBJECTIVE: patient seen and examined. Breathing improved, agrees to quit smoking, breathing better, no new complaints OBJECTIVE: Vital Signs Period Temp Pulse Resp BP Sys/Osei Pulse Ox Last 24 Hr 97.8 F-98.6 F 66-76 18-20 94-155/52-76 96 Intake & Output 05/06/17 05/07/17 05/08/17 05/09/17 23:59 23:59 23:59 23:59 Intake Total 850 600 650 600 Output Total 1200 1200 1200 Balance -350 -600 -550 600 Weight 250 lb 11.2 oz 247 lb 1.6 oz 248 lb 249 lb 7 oz General: sitting in bed in no acute distress chest: good air entry bilaterally, no rales or wheezing Abdomen: soft, obese, NT extremities: 1+ pedal pitting edema Home Medication List Medication Instructions Recorded Confirmed Type Escitalopram Oxalate [Lexapro -] 20 mg PO DAILY 09/14/15 05/05/17 History Olanzapine [Zyprexa -] 10 mg PO BID 09/14/15 05/05/17 History Amlodipine Besylate [Norvasc -] 10 mg PO DAILY 02/25/16 05/05/17 History Carvedilol [Coreg -] 12.5 mg PO BID 02/25/16 05/05/17 History Hydralazine HCl [Apresoline -] 37.5 mg PO TID 02/25/16 05/05/17 History Atorvastatin Ca [Lipitor] 40 mg PO DAILY 04/01/17 05/05/17 History Hydrocodone/Acetaminophen 10 - 325 mg PO Q8H 05/05/17 05/05/17 History [Hydrocodone-Acetamin 10-325 mg] Active Medications Generic Name Dose Route Start Last Admin Trade Name Freq PRN Reason Stop Dose Admin Acetaminophen 650 mg 05/05/17 15:14 05/09/17 06:39 Tylenol - PO 650 mg Q8H PRN Administration PAIN LEVEL 6-10 Albuterol/Ipratropium 1 amp 05/05/17 21:00 05/08/17 21:20 Duoneb - NEB 1 amp Q6H PRN Administration SHORTNESS OF BREATH Amino Acids 30 ml 05/06/17 17:30 05/09/17 09:37 Prosource No Carb Liquid Pkt PO 30 ml BID@0800,1730 JOSLYN Administration Amlodipine Besylate 5 mg 05/09/17 10:00 05/09/17 09:36 Norvasc - PO 5 mg DAILY JOSLYN Administration Ascorbic Acid 500 mg 05/07/17 10:00 05/09/17 09:35 Vitamin C - PO 500 mg DAILY JOSLYN Administration Aspirin 81 mg 05/06/17 10:00 05/09/17 09:36 Ecotrin - PO 81 mg DAILY JOLSYN Administration Atorvastatin Calcium 40 mg 05/05/17 22:00 05/08/17 21:03 Lipitor - PO 40 mg HS [facility] Administration Carvedilol 25 mg 05/08/17 22:00 05/09/17 09:36 Coreg - PO 25 mg BID JOSLYN Administration Escitalopram Oxalate 20 mg 05/06/17 10:00 05/09/17 09:36 Lexapro - PO 20 mg DAILY JOSLYN Administration Furosemide 40 mg 05/07/17 14:00 05/09/17 06:35 Lasix - PO 40 mg BID@0600,1400 JOSLYN Administration Furosemide 20 mg 05/09/17 13:36 Lasix - PO 05/09/17 18:00 [employer] [facility] Heparin Sodium (Porcine) 5,000 unit 05/05/17 22:00 05/09/17 06:35 Heparin - SQ Not Given TID [facility] Insulin Aspart 1 vial 05/05/17 22:00 05/09/17 11:30 Novolog Vial Sliding Scale - SQ Not Given ACHS [facility] Protocol Lisinopril 40 mg 05/09/17 10:00 05/09/17 09:35 Prinivil PO 40 mg DAILY [facility] Administration Magnesium Oxide 400 mg 05/05/17 22:00 05/09/17 09:36 Mag-Ox - PO 400 mg BID [facility] Administration Multivitamins/Minerals/Vitamin C 1 tab 05/07/17 10:00 05/09/17 09:36 Tab-A-Vit - PO 1 tab DAILY [facility] Administration Nicotine 14 mg 05/06/17 20:30 05/09/17 09:36 Nicoderm Patch - TD 14 mg DAILY [facility] Administration Olanzapine 10 mg 05/05/17 22:00 05/09/17 09:35 Zyprexa - PO 10 mg BID JOSLYN Administration Sitagliptin Phosphate 50 mg 05/08/17 07:00 05/09/17 06:35 Januvia - PO 50 mg DAILY@0700 [facility] Administration Laboratory Results - last 24 hr 05/08/17 05/08/17 05/09/17 16:31 21:00 06:34 POC Glucometer 139 107 140 Crossmatch 05/09/17 05/09/17 11:29 14:10 POC Glucometer 110 Crossmatch See Detail ASSESSMENT AND PLAN: 61 yo F with PMHx of morbid obesity, Diastolic HF, COPD, suspected DIRK, NIDDM, HTN, HLD, schizophrenia/bipolar disorder, frequent recent admissions with hypoxic/hypercapnic respiratory failure presents with similar symptoms -acute Hypoxic/hypercarbic respiratory failure -Acute on chronic diastolic CHF -Acute on chronic anemia, no gross evidence of bleed -Nicotine dependence -Hypomagnesemia -Steroid induced Dm -HTN -Schizophrenia -CKD stage II, baseline Cr 1.2-1.5 PLan: off bipap, responded well to lasix. continue lasix 40 mg PO BID for now. Continue coreg/ASA/ACEi, statin, Will need eventual stress testing outpatient. Agreable to smoking cessation, Check ambulatory oxygen satuations and discuss with social work for home oxygen if qualifies. transfuse 1 more unit of PRBC, outpatient GI follow up. h/h overall unchanged here with no gross evidence of bleed. Additional lasix with PRBC Nicotine patch. replete Mg prn. Blood sugars well controlled on januvia, continue ISS,diabetic diet Continue lisinopril, norvasc. Hydralazine d/ave. Cotninue zyprexa. Psych input appreciated. Creatinine at baseline. DVTPPx with heparin subq. Dispo anticiapte dc in 24 hours home with services and med management, after PRBC if no new events and doing well. Plan discussed with patient and all questions answered.
[2017-05-09] MEDS ORDERED: FUROSEMIDE 40 MG/4 ML INJECTABLE VIAL IVPUSH ONE (14:51)
--- NOTE | 2017-05-09 15:59 | PN ---
Physical Exam: SUBJECTIVE: Patient seen and examined. Offers no new complaints. Denies Chest pain, SOB , dizziness, nausea, vomiting and fevers. OBJECTIVE: Vital Signs Period Temp Pulse Resp BP Sys/Osei Pulse Ox Last 24 Hr 97.8 F-98.6 F 66-92 18-20 105-155/52-76 96 GENERAL: Obese, NAD, awake, alert, and fully oriented, in no acute distress. HEENT: PERRL, No JVD, EOMI LUNGS: CTA b/l, no rhonchi, no accessory muscle use. HEART: RRR, S1, S2 without murmur ABDOMEN: Soft, nontender, nondistended, normoactive bowel sounds, no guarding, no rebound, no hepatomegaly EXTREMITIES: 2+ DP pulses, 2+ pitting edema to mid-leg PSYCH: Normal mood, normal affect. SKIN: Warm, dry, no rashes or lesions noted Laboratory Results - last 24 hr 05/08/17 05/08/17 05/09/17 16:31 21:00 06:34 POC Glucometer 139 107 140 Blood Type Antibody Screen Crossmatch 05/09/17 05/09/17 11:29 14:10 POC Glucometer 110 Blood Type O POSITIVE Antibody Screen Negative Crossmatch See Detail Active Medications Generic Name Dose Route Start Last Admin Trade Name Freq PRN Reason Stop Dose Admin Acetaminophen 650 mg 05/05/17 15:14 05/09/17 06:39 Tylenol - PO 650 mg Q8H PRN Administration PAIN LEVEL 6-10 Albuterol/Ipratropium 1 amp 05/05/17 21:00 05/08/17 21:20 Duoneb - NEB 1 amp Q6H PRN Administration SHORTNESS OF BREATH Amino Acids 30 ml 05/06/17 17:30 05/09/17 09:37 Prosource No Carb Liquid Pkt PO 30 ml BID@0800,1730 JOSLYN Administration Amlodipine Besylate 5 mg 05/09/17 10:00 05/09/17 09:36 Norvasc - PO 5 mg DAILY JOSLYN Administration Ascorbic Acid 500 mg 05/07/17 10:00 05/09/17 09:35 Vitamin C - PO 500 mg DAILY JOSLYN Administration Aspirin 81 mg 05/06/17 10:00 05/09/17 09:36 Ecotrin - PO 81 mg DAILY JOSLYN Administration Atorvastatin Calcium 40 mg 05/05/17 22:00 05/08/17 21:03 Lipitor - PO 40 mg HS JOSLYN Administration Carvedilol 25 mg 05/08/17 22:00 05/09/17 09:36 Coreg - PO 25 mg BID JOSLYN Administration Escitalopram Oxalate 20 mg 05/06/17 10:00 05/09/17 09:36 Lexapro - PO 20 mg DAILY JOSLYN Administration Furosemide 40 mg 05/07/17 14:00 05/09/17 15:16 Lasix - PO 40 mg BID@0600,1400 JOSLYN Administration Heparin Sodium (Porcine) 5,000 unit 05/05/17 22:00 05/09/17 15:17 Heparin - SQ 5,000 unit TID JOSLYN Administration Insulin Aspart 1 vial 05/05/17 22:00 05/09/17 11:30 Novolog Vial Sliding Scale - SQ Not Given ACHS [facility] Protocol Lisinopril 40 mg 05/09/17 10:00 05/09/17 09:35 Prinivil PO 40 mg DAILY JOSLYN Administration Magnesium Oxide 400 mg 05/05/17 22:00 05/09/17 09:36 Mag-Ox - PO 400 mg BID JOSLYN Administration Multivitamins/Minerals/Vitamin C 1 tab 05/07/17 10:00 05/09/17 09:36 Tab-A-Vit - PO 1 tab DAILY JOSLYN Administration Nicotine 14 mg 05/06/17 20:30 05/09/17 09:36 Nicoderm Patch - TD 14 mg DAILY JOSLYN Administration Olanzapine 10 mg 05/05/17 22:00 05/09/17 09:35 Zyprexa - PO 10 mg BID JOSLYN Administration Sitagliptin Phosphate 50 mg 05/08/17 07:00 05/09/17 06:35 Januvia - PO 50 mg DAILY@0700 JOSLYN Administration ASSESSMENT/PLAN: 61yo F with h/o HTN, HLD, DM, CAD, dCHF, hep c, CKD stage III-IV, COPD, schizophrenia, active smoker with presentation of SOB once again after recent hospitalization #Acute hypoxic hypercapnic respiratory distress -2/2 dCHF exacerbation -Improving -Off BiPap -Responded well to Lasix -Cont. Lasix 40mg BID PO -Maintain SpO2 88-92% to prevent V/Q mismatch worsening -Pulmonology on board -Last Echo 03/27/17: LV normal size and function -Daily weights; strict I&O's -Continue duonebs scheduled; albuterol q4h PRN -Patient agreeable to smoking cessation. States she quit smoking and is now on nicotine patch. -Check ambulatory oxygen saturation and discuss at home oxygen with oncology social worker. # Acute normocytic anemia -Repeat CBC in AM -Ordered 1 PRBC -Monitor CBC -Previously refused colonoscopy in prior admissions -Continue Iron supplementation # HTN -Currently 113/73 -Continue home medication -Norvasc 5mg qdaily -Coreg 25 mg PO BID -Lisinopril 40mg qdaily #Schizoprenia history -Not suicidal currently -Lexapro 20mg qDaily -Zyprexa 10mg PO BID #Iron deficiency anemia -Cont Iron supplementation -Monitor signs of constipation #SANTO vs CKD -FU am Labs -Monitor BMP #DM -ISS -Januvia 50mg -Diet counselling #FEN: Fluids: None due to fluid overload Nutrition: Diabetic and sodium controlled #PPX: Heparin SQ TID Visit type - Emergency Visit Emergency Visit: Yes ED Registration Date: 05/03/17 Care time: The patient presented to the Emergency Department on the above date and was hospitalized for further evaluation of their emergent condition. - New Patient This patient is new to me today: Yes Date on this admission: 05/09/17 - Critical Care Critical Care patient: No
[2017-05-10] MEDS: HEPARIN NA (PORCINE) 5,000 UNITS/ML 1ML VIAL SQ SCH ×3 (00:25→14:45)
[2017-05-10] MEDS: CARVEDILOL 25 MG TABLET (FP) PO SCH ×3 (00:26→17:19)
[2017-05-10] MEDS: OLANZapine 10 MG TABLET PO SCH ×2 (00:26→09:08)
[2017-05-10] MEDS: MAGNESIUM OXIDE 400 MG TABLET (FP) PO SCH ×3 (00:26→17:24)
[2017-05-10] MEDS: ATORVASTATIN CA 40 MG TABLET (FP) PO SCH ×2 (00:26→17:19)
[2017-05-10 05:25] VITALS: TEMP 97.7
[2017-05-10] MEDS: FUROSEMIDE 40 MG TABLET (FP) PO SCH ×2 (06:08→14:45)
[2017-05-10] MEDS: INSULIN SLIDING SCALE (NOVOLOG) 1 VIAL SQ SCH ×3 (06:18→17:26)
[2017-05-10] MEDS: sitaGLIPtin PHOSPHATE 50 MG TABLET PO SCH (06:19)
[2017-05-10] MEDS: AMINO ACIDS/PROTEIN HYDROLYS 30 ML LIQUID.PKT PO SCH ×2 (09:01→17:25)
[2017-05-10] MEDS ORDERED: ESCITALOPRAM OXALATE 10 MG TABLET (FP) ONE (09:05)
[2017-05-10] MEDS ORDERED: PT OWN MED DRAWER 7, Y5N ONE (09:05)
[2017-05-10] MEDS: ACETAMINOPHEN 325 MG TABLET (FP) PO PRN ×2 (09:07→17:18)
[2017-05-10] MEDS: oxyCODONE HCL 5 MG TABLET PO PRN ×2 (09:07→17:19)
[2017-05-10] MEDS: amLODIPine BESYLATE 5 MG TABLET (FP) PO SCH (09:08)
[2017-05-10] MEDS: ASPIRIN COATED 81 MG TABLET.EC PO SCH (09:08)
[2017-05-10] MEDS: MULTIVITAMINS (DAILY MVI) TABLET (FP) PO SCH (09:08)
[2017-05-10] MEDS: ASCORBIC ACID 500 MG TABLET (FP) PO SCH (09:08)
[2017-05-10] MEDS: ESCITALOPRAM OXALATE 20 MG TABLET (FP) PO SCH (09:08)
[2017-05-10] MEDS: LISINOPRIL 20 MG TABLET (FP) PO SCH (09:09)
[2017-05-10] MEDS: NICOTINE 14 MG/24 HOURS TOPICAL PATCH TD SCH (09:09)
[2017-05-10 10:05] VITALS: PULSE 98
[2017-05-10 10:54] LABS: HEMATOCRIT 31.2 % (32.4-45.2); HEMOGLOBIN 9.5 GM/dL (10.7-15.3); MCH 24.7 pg (25.7-33.7); MCHC 30.5 g/dl (32.0-36.0); MEAN CELL VOLUME 80.8 fl (80-96); MEAN PLT VOLUME 7.1 fl (7.5-11.1); PLATELET COUNT 334 K/MM3 (134-434); RBC 3.86 M/mm3 (3.60-5.2); RDW 21.7 % (11.6-15.6); WHITE BLOOD COUNT 4.2 K/mm3 (4.0-10.0)
[2017-05-10 11:24] LABS: ALBUMIN 2.9 g/dl (3.4-5.0); ANION GAP 7 (8-16); BILIRUBIN,TOTAL 0.7 mg/dL (0.2-1.0); BLOOD UREA NITROGEN 19 mg/dL (7-18); CALCIUM 7.9 mg/dL (8.5-10.1); CHLORIDE 99 mmol/L (98-107); CO2 32 mmol/L (21-32); CREATININE 1.3 mg/dL (0.55-1.02); GLUCOSE,RANDOM 163 mg/dL (74-106); POTASSIUM 3.8 mmol/L (3.5-5.1); SGOT/AST 31 U/L (15-37); SGPT/ALT 32 U/L (12-78); SODIUM 138 mmol/L (136-145); TOT PROT 7.2 g/dl (6.4-8.2)
[2017-05-10 11:25] LABS: ALK PHOS 100 U/L (45-117)
--- NOTE | 2017-05-10 12:04 | PN ---
Progress Note, Physician History of Present Illness: Dyspnea and O2 requirement has improved with diuresis and afterload reduction, comfortable on NC. - Current Medication List Current Medications: Active Medications Acetaminophen (Tylenol -) 650 mg PO Q8H PRN PRN Reason: PAIN LEVEL 6-10 Last Admin: 05/10/17 09:07 Dose: 650 mg Albuterol/Ipratropium (Duoneb -) 1 amp NEB Q6H PRN PRN Reason: SHORTNESS OF BREATH Last Admin: 05/08/17 21:20 Dose: 1 amp Amino Acids (Prosource No Carb Liquid Pkt) 30 ml PO BID@0800,1730 [facility] Last Admin: 05/10/17 09:01 Dose: 30 ml Amlodipine Besylate (Norvasc -) 5 mg PO DAILY [facility] Last Admin: 05/10/17 09:08 Dose: 5 mg Ascorbic Acid (Vitamin C -) 500 mg PO DAILY [facility] Last Admin: 05/10/17 09:08 Dose: 500 mg Aspirin (Ecotrin -) 81 mg PO DAILY [facility] Last Admin: 05/10/17 09:08 Dose: 81 mg Atorvastatin Calcium (Lipitor -) 40 mg PO HS [facility] Last Admin: 05/10/17 00:26 Dose: 40 mg Carvedilol (Coreg -) 25 mg PO BID [facility] Last Admin: 05/10/17 09:08 Dose: 25 mg Escitalopram Oxalate (Lexapro -) 20 mg PO DAILY [facility] Last Admin: 05/10/17 09:08 Dose: 20 mg Furosemide (Lasix -) 40 mg PO BID@0600,1400 [facility] Last Admin: 05/10/17 06:08 Dose: Not Given Heparin Sodium (Porcine) (Heparin -) 5,000 unit SQ TID [facility] Last Admin: 05/10/17 06:05 Dose: Not Given Insulin Aspart (Novolog Vial Sliding Scale -) 1 vial SQ ACHS [facility] PRN Reason: Protocol Last Admin: 05/10/17 11:49 Dose: Not Given Lisinopril (Prinivil) 40 mg PO DAILY [facility] Last Admin: 05/10/17 09:09 Dose: 40 mg Magnesium Oxide (Mag-Ox -) 400 mg PO BID [facility] Last Admin: 05/10/17 09:08 Dose: 400 mg Multivitamins/Minerals/Vitamin C (Tab-A-Vit -) 1 tab PO DAILY [facility] Last Admin: 05/10/17 09:08 Dose: 1 tab Nicotine (Nicoderm Patch -) 14 mg TD DAILY [facility] Last Admin: 05/10/17 09:09 Dose: 14 mg Olanzapine (Zyprexa -) 10 mg PO BID [facility] Last Admin: 05/10/17 09:08 Dose: 10 mg Oxycodone HCl (Roxicodone -) 10 mg PO Q8H PRN PRN Reason: PAIN LEVEL 6-10 Last Admin: 05/10/17 09:07 Dose: 10 mg Sitagliptin Phosphate (Januvia -) 50 mg PO DAILY@0700 [facility] Last Admin: 05/10/17 06:19 Dose: 50 mg - Objective Vital Signs: Vital Signs Temperature 97.7 F 05/10/17 05:24 Pulse Rate 98 H 05/10/17 10:04 Respiratory Rate 20 05/10/17 05:24 Blood Pressure 140/74 05/10/17 05:24 O2 Sat by Pulse Oximetry (%) 90 L 05/10/17 10:04 Constitutional: Yes: No Distress, Calm Neck: Yes: Supple Cardiovascular: Yes: Regular Rate and Rhythm Respiratory: Yes: Regular, Diminished, On Nasal O2 Gastrointestinal: Yes: Normal Bowel Sounds, Soft, Abdomen, Obese Edema: Yes Edema: LLE: 1+, RLE: 1+ Labs: CBC, BMP 05/10/17 10:35 05/10/17 10:35 INR, PTT INR 1.03 (0.82-1.09) 05/03/17 13:18 Problem List - Problems (1) Acute on chronic diastolic (congestive) heart failure Code(s): I50.33 - ACUTE ON CHRONIC DIASTOLIC (CONGESTIVE) HEART FAILURE (2) Acute respiratory failure with hypoxia and hypercapnia Code(s): J96.01 - ACUTE RESPIRATORY FAILURE WITH HYPOXIA; J96.02 - ACUTE RESPIRATORY FAILURE WITH HYPERCAPNIA (3) Leg edema Code(s): R60.0 - LOCALIZED EDEMA (4) CAD (coronary artery disease) Code(s): I25.10 - ATHSCL HEART DISEASE OF [place] CORONARY ARTERY W/O ANG PCTRS Qualifiers: Coronary Disease-Associated Artery/Lesion type: [place] artery [place] vs. transplanted heart: [place] heart Associated angina: without angina Qualified Code(s): I25.10 - Atherosclerotic heart disease of [place] coronary artery without angina pectoris (5) COPD (chronic obstructive pulmonary disease) Code(s): J44.9 - CHRONIC OBSTRUCTIVE PULMONARY DISEASE, UNSPECIFIED Qualifiers: COPD type: unspecified COPD Qualified Code(s): J44.9 - Chronic obstructive pulmonary disease, unspecified (6) Chronic kidney insufficiency Code(s): N18.9 - CHRONIC KIDNEY DISEASE, UNSPECIFIED Qualifiers: Chronic kidney disease stage: unspecified stage Qualified Code(s): N18.9 - Chronic kidney disease, unspecified (7) Diabetes mellitus Code(s): E11.9 - TYPE 2 DIABETES MELLITUS WITHOUT COMPLICATIONS Qualifiers: Diabetes mellitus type: type 2 Diabetes mellitus complication status: without complication 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: without 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[employer] 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 use Qualified Code(s): E11.9 - Type 2 diabetes mellitus without complications (8) Hypertension Code(s): I10 - ESSENTIAL (PRIMARY) HYPERTENSION Qualifiers: Hypertension type: essential hypertension Qualified Code(s): I10 - Essential (primary) hypertension (9) Schizophrenia Code(s): F20.9 - SCHIZOPHRENIA, UNSPECIFIED Qualifiers: Schizophrenia type: unspecified Qualified Code(s): F20.9 - Schizophrenia, unspecified (10) Hypokalemia Code(s): E87.6 - HYPOKALEMIA (11) Medication noncompliance due to cognitive impairment Code(s): Z91.14 - PATIENT'S OTHER NONCOMPLIANCE WITH MEDICATION REGIMEN Assessment/Plan Echocardiography performed 03/27/17 revealed normal left ventricular systolic function, moderate aortic valve sclerosis 1. Post acute hypoxic/hypercapneic respiratory failure post extubation most likely related to exacerbation of reactive airway disease/chronic obstructive pulmonary disease, resolved 2. Acute on chronic class II [place] Heart [employer] classification diastolic left ventricular congestive heart failure, resolved 3. CAD angina pectoris 4. Hypertensive cardiovascular disease 5. Diabetes mellitus 6. History of schizophrenia/bipolar disorder 7. DIRK/OHS 8. CKD 9. anemia 10. Exogenous obesity PLAN: 1. Continue Coreg 25 bid 2. Continue Prinivil 40 qd 3. Continue Lasix 40 po bid with close monitoring of renal function, diuretic response and electrolytes 4. Continue Norvasc 5 qd 5. Continue Lipitor 40 qhs 6. Aspirin 81 qd with caution considering the above noted anemia 7. Evaluation of anemia and transfusion as needed maintaining Hg equal or > 8.0 8. As outlined in prior notes patient will eventually require myocardial perfusion imaging study to assess severity of coronary artery disease, can be performed on outpatient basis 9. Bronchodilators, Steroids, O2, BiPAP at night and PRN 10. DVT prophylaxis
[2017-05-10 14:59] VITALS: BP 144/87
--- NOTE | 2017-05-10 15:15 | PN ---
Progress Note, Physician Chief Complaint: MY INSULIN WAS NOT BEING COVERED BY MY INSURANCE. MY BREATHING IS OK - Current Medication List Current Medications: Active Medications Acetaminophen (Tylenol -) 650 mg PO Q8H PRN PRN Reason: PAIN LEVEL 6-10 Last Admin: 05/10/17 09:07 Dose: 650 mg Albuterol/Ipratropium (Duoneb -) 1 amp NEB Q6H PRN PRN Reason: SHORTNESS OF BREATH Last Admin: 05/08/17 21:20 Dose: 1 amp Amino Acids (Prosource No Carb Liquid Pkt) 30 ml PO BID@0800,1730 [facility] Last Admin: 05/10/17 09:01 Dose: 30 ml Amlodipine Besylate (Norvasc -) 5 mg PO DAILY [facility] Last Admin: 05/10/17 09:08 Dose: 5 mg Ascorbic Acid (Vitamin C -) 500 mg PO DAILY [facility] Last Admin: 05/10/17 09:08 Dose: 500 mg Aspirin (Ecotrin -) 81 mg PO DAILY [facility] Last Admin: 05/10/17 09:08 Dose: 81 mg Atorvastatin Calcium (Lipitor -) 40 mg PO HS [facility] Last Admin: 05/10/17 00:26 Dose: 40 mg Carvedilol (Coreg -) 25 mg PO BID [facility] Last Admin: 05/10/17 09:08 Dose: 25 mg Escitalopram Oxalate (Lexapro -) 20 mg PO DAILY [facility] Last Admin: 05/10/17 09:08 Dose: 20 mg Furosemide (Lasix -) 40 mg PO BID@0600,1400 [facility] Last Admin: 05/10/17 14:45 Dose: 40 mg Heparin Sodium (Porcine) (Heparin -) 5,000 unit SQ TID [facility] Last Admin: 05/10/17 14:45 Dose: 5,000 unit Insulin Aspart (Novolog Vial Sliding Scale -) 1 vial SQ ACHS [facility] PRN Reason: Protocol Last Admin: 05/10/17 11:49 Dose: Not Given Lisinopril (Prinivil) 40 mg PO DAILY [facility] Last Admin: 05/10/17 09:09 Dose: 40 mg Magnesium Oxide (Mag-Ox -) 400 mg PO BID [facility] Last Admin: 05/10/17 09:08 Dose: 400 mg Multivitamins/Minerals/Vitamin C (Tab-A-Vit -) 1 tab PO DAILY [facility] Last Admin: 05/10/17 09:08 Dose: 1 tab Nicotine (Nicoderm Patch -) 14 mg TD DAILY [facility] Last Admin: 05/10/17 09:09 Dose: 14 mg Olanzapine (Zyprexa -) 10 mg PO BID [facility] Last Admin: 05/10/17 09:08 Dose: 10 mg Oxycodone HCl (Roxicodone -) 10 mg PO Q8H PRN PRN Reason: PAIN LEVEL 6-10 Last Admin: 05/10/17 09:07 Dose: 10 mg Sitagliptin Phosphate (Januvia -) 50 mg PO DAILY@0700 [facility] Last Admin: 05/10/17 06:19 Dose: 50 mg - Objective Vital Signs: Vital Signs Temperature 97.7 F 05/10/17 10:00 Pulse Rate 98 H 05/10/17 10:04 Respiratory Rate 20 05/10/17 10:00 Blood Pressure 144/87 05/10/17 14:57 O2 Sat by Pulse Oximetry (%) 90 L 05/10/17 10:04 Constitutional: Yes: Calm Eyes: Yes: EOM Intact HENT: Yes: Normocephalic Neck: Yes: Trachea Midline Cardiovascular: Yes: Regular Rate and Rhythm, S1, S2 Respiratory: Yes: Diminished Gastrointestinal: Yes: Normal Bowel Sounds, Abdomen, Obese Edema: LLE: 1+, RLE: 1+ Labs: CBC, BMP 05/10/17 10:35 05/10/17 10:35 INR, PTT INR 1.03 (0.82-1.09) 05/03/17 13:18 - ....Imaging Chest X-ray: Report Reviewed, Image Reviewed Problem List - Problems (1) Medication noncompliance due to cognitive impairment Code(s): Z91.14 - PATIENT'S OTHER NONCOMPLIANCE WITH MEDICATION REGIMEN (2) CHF (congestive heart failure) Code(s): I50.9 - HEART FAILURE, UNSPECIFIED (3) Acute on chronic diastolic (congestive) heart failure Code(s): I50.33 - ACUTE ON CHRONIC DIASTOLIC (CONGESTIVE) HEART FAILURE (4) Acute respiratory failure with hypoxia and hypercapnia Code(s): J96.01 - ACUTE RESPIRATORY FAILURE WITH HYPOXIA; J96.02 - ACUTE RESPIRATORY FAILURE WITH HYPERCAPNIA Assessment/Plan Acute on Chronic Hypoxic and Hypercapneic Respiratory Failure Acute on Chronic Diastolic Heart Failure CAD Acute COPD Exacerbation HTN DM CKD UTI Morbid Obesity DIRK/OHS - lasix - monitor urine output, creatinine - REJI-I, beta misael - inhaled bronchodilators - O2 - BiPAP at night and PRN during day - DVT daysi RACHEL MD
[2017-05-10] MEDS ORDERED: INSULIN (NOVOLOG) ASPART 100 UNITS/ML 10ML VIAL ONE (17:13)
--- NOTE | 2017-05-10 17:26 | PN ---
Teaching Attending Note Name of Resident: Laurie Sunshine ATTENDING PHYSICIAN STATEMENT Time of evaluation: 12:10 PM I saw and evaluated the patient. I reviewed the resident's note and discussed the case with the resident. I agree with the resident's findings and plan as documented. SUBJECTIVE: Patient seen and examined. Breathing improved, eager to go home, no new complaints. OBJECTIVE: Vital Signs Period Temp Pulse Resp BP Sys/Osei Pulse Ox Last 24 Hr 97.7 F-97.9 F 70-98 20-20 130-151/70-87 84-90 Intake & Output 05/07/17 05/08/17 05/09/17 05/10/17 23:59 23:59 23:59 23:59 Intake Total 600 350 665 2582 Output Total 1200 1200 500 Balance -600 -104 460 2588 Weight 247 lb 1.6 oz 248 lb 249 lb 7 oz 251 lb General: sitting at edge of bed in no acute distress CVS:S1S2 regular Chest: good air entry bilaterally, no rales or wheezing extremities: trace pedal edema Home Medication List Medication Instructions Recorded Confirmed Type Amlodipine Besylate [Norvasc -] 10 mg PO DAILY 02/25/16 05/05/17 History Active Medications Generic Name Dose Route Start Last Admin Trade Name Freq PRN Reason Stop Dose Admin Acetaminophen 650 mg 05/09/17 18:23 05/10/17 17:18 Tylenol - PO 650 mg Q8H PRN Administration PAIN LEVEL 6-10 Albuterol/Ipratropium 1 amp 05/05/17 21:00 05/08/17 21:20 Duoneb - NEB 1 amp Q6H PRN Administration SHORTNESS OF BREATH Amino Acids 30 ml 05/06/17 17:30 05/10/17 17:25 Prosource No Carb Liquid Pkt PO 30 ml BID@0800,1730 JOSLYN Administration Amlodipine Besylate 5 mg 05/09/17 10:00 05/10/17 09:08 Norvasc - PO 5 mg DAILY JOSLYN Administration Ascorbic Acid 500 mg 05/07/17 10:00 05/10/17 09:08 Vitamin C - PO 500 mg DAILY JOSLYN Administration Aspirin 81 mg 05/06/17 10:00 05/10/17 09:08 Ecotrin - PO 81 mg DAILY JOSLYN Administration Atorvastatin Calcium 40 mg 05/05/17 22:00 05/10/17 17:19 Lipitor - PO 40 mg HS JOSLYN Administration Carvedilol 25 mg 05/08/17 22:00 05/10/17 17:19 Coreg - PO 25 mg BID JOSLYN Administration Escitalopram Oxalate 20 mg 05/06/17 10:00 05/10/17 09:08 Lexapro - PO 20 mg DAILY JOSLYN Administration Furosemide 40 mg 05/07/17 14:00 05/10/17 14:45 Lasix - PO 40 mg BID@0600,1400 JOSLYN Administration Heparin Sodium (Porcine) 5,000 unit 05/05/17 22:00 05/10/17 14:45 Heparin - SQ 5,000 unit TID JOSLYN Administration Insulin Aspart 1 vial 05/05/17 22:00 05/10/17 17:26 Novolog Vial Sliding Scale - SQ Not Given ACHS [facility] Protocol Lisinopril 40 mg 05/09/17 10:00 05/10/17 09:09 Prinivil PO 40 mg DAILY JOSLYN Administration Magnesium Oxide 400 mg 05/05/17 22:00 05/10/17 17:24 Mag-Ox - PO 400 mg BID JOSLYN Administration Multivitamins/Minerals/Vitamin C 1 tab 05/07/17 10:00 05/10/17 09:08 Tab-A-Vit - PO 1 tab DAILY JOSLYN Administration Nicotine 14 mg 05/06/17 20:30 05/10/17 09:09 Nicoderm Patch - TD 14 mg DAILY JOSLYN Administration Olanzapine 10 mg 05/05/17 22:00 05/10/17 09:08 Zyprexa - PO 10 mg BID JOSLYN Administration Oxycodone HCl 10 mg 05/09/17 18:22 05/10/17 17:19 Roxicodone - PO 10 mg Q8H PRN Administration PAIN LEVEL 6-10 Sitagliptin Phosphate 50 mg 05/08/17 07:00 05/10/17 06:19 Januvia - PO 50 mg DAILY@0700 JOSLYN Administration Laboratory Results - last 24 hr 05/09/17 05/10/17 05/10/17 14:10 00:31 06:17 WBC RBC Hgb Hct MCV MCH MCHC RDW Plt Count MPV Sodium Potassium Chloride Carbon Dioxide Anion Gap BUN Creatinine Creat Clearance w eGFR POC Glucometer 132 124 Random Glucose Calcium Total Bilirubin AST ALT Alkaline Phosphatase Total Protein Albumin Blood Type O POSITIVE Antibody Screen Negative Crossmatch See Detail 05/10/17 05/10/17 05/10/17 10:35 10:35 11:48 WBC 4.2 RBC 3.86 D Hgb 9.5 L D Hct 31.2 L D MCV 80.8 MCH 24.7 L MCHC 30.5 L RDW 21.7 H Plt Count 334 D MPV 7.1 L Sodium 138 Potassium 3.8 Chloride 99 Carbon Dioxide 32 Anion Gap 7 L BUN 19 H Creatinine 1.3 H Creat Clearance w eGFR 41.50 POC Glucometer 115 Random Glucose 163 H Calcium 7.9 L Total Bilirubin 0.7 D AST 31 D ALT 32 Alkaline Phosphatase 100 D Total Protein 7.2 Albumin 2.9 L Blood Type Antibody Screen Crossmatch Microbiology 05/03/17 14:02 Urine - Urine Hickman Urine Culture - Final Klebsiella Pneumoniae ASSESSMENT AND PLAN: 61 yo F with PMHx of morbid obesity, Diastolic HF, COPD, suspected DIRK, NIDDM, HTN, HLD, schizophrenia/bipolar disorder, frequent recent admissions with hypoxic/hypercapnic respiratory failure presents with similar symptoms -acute Hypoxic/hypercarbic respiratory failure -Acute on chronic diastolic CHF -Acute on chronic anemia, no gross evidence of bleed -Nicotine dependence -Hypomagnesemia -Steroid induced Dm -HTN -Schizophrenia -CKD stage II, baseline Cr 1.2-1.5 PLan: doing well, continue lasix BID. s/p 1 unit of PRBC with appropriate response. Outpatient follow up. Promises to continue with smoking cessation and continue nicotine patch. Patient to be discharged on home oxygen, counseled in detail about absolute no smoking with home oxygen, patient relays understanding of the same and agreable to comply with the same. Continue Januvia, home blood sugar monitoring. Discussed with pharmacy, patient is only approved to get medications from [facility] and only from one provider. Case management called pharmacy and insurance and patient will be provided with one month prescription to be approved by pharmacy and going forward her prescriber will be changed to current PCP arranged at the clinic. Clinic appointment arranged for monday 1:30 PM d/c home today. plan discussed with patient in detail, all questions answered.
--- NOTE | 2017-05-10 17:39 | DS ---
Physical Exam: SUBJECTIVE: Patient seen and examined. No acute events overnight. Offers no new complaints. Denies Chest pain, SOB , dizziness, nausea, vomiting and fevers. OBJECTIVE: Vital Signs Period Temp Pulse Resp BP Sys/Osei Pulse Ox Last 24 Hr 97.7 F-97.9 F 70-98 20-20 130-151/70-87 84-90 PHYSICAL EXAM GENERAL: Obese, NAD, awake, alert, and fully oriented, in no acute distress. HEENT: PERRL, No JVD, EOMI LUNGS: CTA b/l, no rhonchi, no accessory muscle use. HEART: RRR, S1, S2 without murmur ABDOMEN: Soft, nontender, nondistended, normoactive bowel sounds, no guarding, no rebound, no hepatomegaly EXTREMITIES: 2+ DP pulses, 2+ pitting edema to mid-leg PSYCH: Normal mood, normal affect. SKIN: Warm, dry, no rashes or lesions noted LABS Laboratory Results - last 24 hr 05/09/17 05/10/17 05/10/17 14:10 00:31 06:17 WBC RBC Hgb Hct MCV MCH MCHC RDW Plt Count MPV Sodium Potassium Chloride Carbon Dioxide Anion Gap BUN Creatinine Creat Clearance w eGFR POC Glucometer 132 124 Random Glucose Calcium Total Bilirubin AST ALT Alkaline Phosphatase Total Protein Albumin Blood Type O POSITIVE Antibody Screen Negative Crossmatch See Detail 05/10/17 05/10/17 05/10/17 10:35 10:35 11:48 WBC 4.2 RBC 3.86 D Hgb 9.5 L D Hct 31.2 L D MCV 80.8 MCH 24.7 L MCHC 30.5 L RDW 21.7 H Plt Count 334 D MPV 7.1 L Sodium 138 Potassium 3.8 Chloride 99 Carbon Dioxide 32 Anion Gap 7 L BUN 19 H Creatinine 1.3 H Creat Clearance w eGFR 41.50 POC Glucometer 115 Random Glucose 163 H Calcium 7.9 L Total Bilirubin 0.7 D AST 31 D ALT 32 Alkaline Phosphatase 100 D Total Protein 7.2 Albumin 2.9 L Blood Type Antibody Screen Crossmatch HOSPITAL COURSE: Date of Admission:05/03/17 This is a 61 year old female, pmhx includes HTN, HLD, CHF, DM II, COPD, hepatitis C, CKD, schizophrenia/bipolar disorder and recurrent admissions, presented to the ED with worsening SOB by EMS. EMS found oxygen saturation to be in the 80's, after placing on CPAP in the 90's. Patient was found to have Acute hypoxic hypercapnic respiratory distress and was sent to the ICU where she was closely monitored. She was put on BiPaP, given lasix for fluid overload , and was given PRBC for her anemia. Pulmonary and cardiology team were also on board. Patient was also being managed with Lasix and breathing treatments with Duonebs and albuterol. Patient clinically improved. Patient has not been taking her medications because she is only restricted to one prescriber. Insurance was contacted and are currently fixing this issue. Patient was prescribed her home medications with a temporary approval by her insurance. She is instructed to follow up with her PCP same week of discharge. Date of Discharge: 05/10/17 Minutes to complete discharge: 35 Discharge Summary Reason For Visit: CONGESTIVE HEART FAILURE Current Active Problems Medication noncompliance due to cognitive impairment (Acute) CHF (congestive heart failure) (Chronic) Condition: Guarded - Instructions Diet, Activity, Other Instructions: Please follow up with your primary care physician this week. You have a scheduled appointment with your primary care doctor on Monday at 1: 30pm. Your medications have been sent to your pharmacy. Please take as directed. Follow up with your lung doctor in 2 weeks. Follow up with your heart doctor in 2 weeks. recommendations: Daily weights and notify your doctor if weight gain > 3lbs in 2 days noted. Advise home BP monitoring till your next doctor visit. Notify your doctor if SBP (upper BP) < 100 or persistently > 140 or any dizziness noted. You are started on januvia for your diabetes. Advise fasting blood sugar checks before meals and at bedtime till your next doctor visit and notify your doctor if < 75 or persistently > 200 or any reading > 400 noted. You are being discharged on home oxygen, please use 2 L with activity and ambulation. STRICT NO SMOKING WHILE ON OXYGEN CAN BE LIFE THREATENING AND IS A FIRE RISK. Strict low salt diet recommendations. CBC with your doctor in 1 weeks. You will need outpatient Gastroenterology referal and possible EGD and colonscopy later. Discuss with your doctor abotu the same. If your symptoms are worsening,. new chest pain, trouble breathing, or any new concerns or have an emergency, please go to your nearest emergency department. Referrals: Villa Del Rio MD [Staff Physician] - 05/12/17 1:30 pm Disposition: [facility] - Home Medications Comprehensive Discharge Medication List: Ambulatory Orders Amlodipine Besylate [Norvasc -] 10 mg PO DAILY 02/25/16 Acetaminophen [Tylenol .Regular Strength -] 650 mg PO Q8H PRN tablet 05/10/17 Albuterol Sulfate Inhaler - [Ventolin HFA Inhaler -] 2 inh PO Q4H PRN #1 inh Amlodipine Besylate [Norvasc -] 10 mg PO DAILY #30 tablet 05/10/17 Ascorbic Acid [Vitamin C -] 500 mg PO DAILY tablet 05/10/17 Aspirin Coated [Ecotrin -] 81 mg PO DAILY #30 tablet.ec 05/10/17 Atorvastatin Ca [Lipitor] 40 mg PO DAILY #30 tablet 05/10/17 Carvedilol [Coreg -] 12.5 mg PO BID #30 tablet 05/10/17 Escitalopram Oxalate [Lexapro -] 20 mg PO DAILY #30 tablet 05/10/17 Ferrous Sulfate [Feosol] 325 mg PO DAILY #30 ud 05/10/17 Furosemide [Lasix -] 40 mg PO BID@0600,1400 tablet 05/10/17 Hydralazine HCl 25 mg PO TID #30 tablet 05/10/17 Lisinopril [Prinivil] 5 mg PO DAILY #30 tablet 05/10/17 Miscellaneous Medical Supply [Glucometer Device] 1 each NR ASDIR #1 kit Miscellaneous Medical Supply [Glucometer Test Strips #100] 1 each NR ASDIR #1 box 05/10/17 Multivitamins [Multivit ([facility] Formulary)] 1 tab PO DAILY tab 05/10/17 Nicotine Patch [Nicoderm Patch -] 14 mg TD DAILY patch 05/10/17 Olanzapine [Zyprexa -] 10 mg PO BID #30 tablet 05/10/17 Sitagliptin Phosphate [Januvia -] 50 mg PO DAILY@0700 tablet 05/10/17 This patient is new to me today: No Emergency Visit: Yes ED Registration Date: 05/03/17 Care time: The patient presented to the Emergency Department on the above date and was hospitalized for further evaluation of their emergent condition. Critical Care patient: No - Discharge Referral Referred to [facility] No
== END 2017-05-10 18:28 | disposition home or self-care (01) | DRG 133 ==
LOC: JER 12:48 → JERBED 15:03 → JICU 20:32 → J6S 05-05 20:38
PROVIDERS: ADMIT Internal Medicine; ATTEND Hospitalist
PROC: 5A09457 Assistance with Respiratory Ventilation, 24-96 Consecutive Hours, Continuous Positive Airway Pressure (ICD-10-PCS; principal; 2017-05-04)
PROC: 30233N1 Transfusion of Nonautologous Red Blood Cells into Peripheral Vein, Percutaneous Approach (ICD-10-PCS; 2017-05-04)
DX: J96.01 Acute respiratory failure with hypoxia (principal); E78.5 Hyperlipidemia, unspecified; F20.89 Other schizophrenia; Z86.73 Personal history of transient ischemic attack (TIA), and cerebral infarction without residual deficits; F31.89 Other bipolar disorder; E87.6 Hypokalemia; D62 Acute posthemorrhagic anemia; D50.8 Other iron deficiency anemias; F17.210 Nicotine dependence, cigarettes, uncomplicated; I25.10 Atherosclerotic heart disease of native coronary artery without angina pectoris; I13.0 Hypertensive heart and chronic kidney disease with heart failure and stage 1 through stage 4 chronic kidney disease, or unspecified chronic kidney disease; N18.2 Chronic kidney disease, stage 2 (mild); E11.22 Type 2 diabetes mellitus with diabetic chronic kidney disease; I50.33 Acute on chronic diastolic (congestive) heart failure; G47.33 Obstructive sleep apnea (adult) (pediatric); N17.8 Other acute kidney failure; J96.02 Acute respiratory failure with hypercapnia; J44.1 Chronic obstructive pulmonary disease with (acute) exacerbation; E83.42 Hypomagnesemia; D64.89 Other specified anemias; E66.01 Morbid (severe) obesity due to excess calories; Z68.41 Body mass index [BMI] 40.0-44.9, adult; F41.9 Anxiety disorder, unspecified; G89.29 Other chronic pain; R60.0 Localized edema; L89.152 Pressure ulcer of sacral region, stage 2; N39.0 Urinary tract infection, site not specified; B96.1 Klebsiella pneumoniae [K. pneumoniae] as the cause of diseases classified elsewhere; Z91.14 Patient's other noncompliance with medication regimen; Z88.0 Allergy status to penicillin
CPT/HCPCS: 36415; 36430; 36600; 71045-TC; 80048; 80053; 81003; 81015; 82009; 82375; 82550; 82803; 82962; 83050; 83605; 83735; 83880; 84100; 84484; 85025; 85027; 85610; 85730; 86850; 86870; 86900; 86901; 86922; 87086; 87186; 93005; 93010; 94640; 94660; 94761; 99285-25; J1644; P9038; P9058

== ENCOUNTER 2017-05-16 07:49 | Inpatient (IN) | payer OTHER ==
--- NOTE | 2017-05-16 08:02 | PDOC ---
Attending Attestation - HPI HPI: 05/16/17 09:58 The patient is a 61 year old female with a significant PMH of hypertension, hyperlipidemia, diabetes, CHF, hepatitis C, chronic renal insufficiency, schizophrenia/bipoar disorder who was brought in to the emergency department via EMS for evaluation of worsening shortness of breath since yesterday. The patient states she activated EMS yesterday when the shortness of breath began but when EMS arrived she refused to come to the ER. As per EMS, the patient was given 10mg of IM decadron and 3 duonebs. The patient was hypoxic at 85% in the field per EMS. The patient reports she is normally on 5L of O2. The patient has had multiple recent admissions for respiratory distress. The patient denies chest pain, headache and dizziness. Denies fever, chills, nausea, vomit, diarrhea and constipation. Denies dysuria, frequency, urgency and hematuria. Allergies: penicillins, ibuprofen, metformin Past surgical history: Hysterectomy Social history: Current every day smoker. No alcohol or drug use. PCP: Dr. Moses in [place] - Physicial Exam PE: 05/16/17 10:08 GENERAL: Awake, alert, and fully oriented. HEAD: No signs of trauma EYES: PERRLA, EOMI, sclera anicteric, conjunctiva clear ENT: Auricles normal inspection, hearing grossly normal, nares patent, oropharynx clear without exudates. Moist mucosa NECK: Normal ROM, supple, no lymphadenopathy, JVD, or masses LUNGS: (+) Breath sounds equal but shallow. No wheezes, and no crackles HEART: Regular rate and rhythm, normal S1 and S2, no murmurs, rubs or gallops ABDOMEN: Soft, nontender, normoactive bowel sounds. No guarding, no rebound. No masses EXTREMITIES: Normal range of motion, no edema. No clubbing or cyanosis. No cords , erythema, or tenderness BACK: No midline spinal tenderness in cervical/thoracic/lumbar region NEUROLOGICAL: Normal speech, cranial nerves intact, negative pronator drift, 5/ 5 strength in all 4 extremities, normal sensation to light touch in all 4 extremities, normal cerebellar exam, normal gait, normal reflexes and tone SKIN: Warm, Dry, normal turgor, no rashes or lesions noted. <Kelsey Duckworth - Last Filed: 05/16/17 10:08> - Resident Resident Name: Ephraim Rodriguez - ED Attending Attestation I have performed the following: I have examined & evaluated the patient, The case was reviewed & discussed with the resident, I agree w/resident's findings & plan, Exceptions are as noted - Medical Decision Making 05/16/17 08:45 61-year-old female with multiple medical problems including COPD, CHF presents to the emergency department and her story distress. Vitals of hypertension and hypoxia to 85%. Patient also tachypneic to the 30s. Exam with bilateral crackles in the lungs and diffuse wheezing with moderate air movement. Likely CHF and COPD exacerbation, s/p steroids and nebs in field, patient is currently on BiPAP, now satting 95% and breathing in the low 20s. We'll obtain labs and chest x-ray and admit. Nebs PRN. 05/16/17 12:45 Patient feels clinically improved on BiPAP, his after for food. Hemodynamically , she is improved. Likely COPD and CHF exacerbation. Patient has been admitted to Dr. Macias for further management. Case discussed in detail with admitting physician including history, physical exam and ancillary studies. Admitting physician has assumed care for the patient, will follow all pending diagnostics and will complete the evaluation and treatment. <Tono Molina - Last Filed: 05/16/17 18:41>
[2017-05-16 08:13] VITALS: BMI 42.7
[2017-05-16] MEDS ORDERED: ALBUTEROL SO4 2.5/IPRATROPIUM 0.5 INH SOL 3 ML VIAL.NEB. NEB ONE (08:23)
[2017-05-16 09:44] LABS: BASO % 0.3 % (0-2.0); EOS % 0.1 % (0-4.5); HEMATOCRIT 30.2 % (32.4-45.2); HEMOGLOBIN 8.8 GM/dL (10.7-15.3); LYMPH % 10.4 % (8-40); MCH 24.4 pg (25.7-33.7); MEAN CELL VOLUME 84.2 fl (80-96); MEAN PLT VOLUME 6.8 fl (7.5-11.1); MONO % 6.8 % (3.8-10.2); NEUT % 82.4 % (42.8-82.8); PLATELET COUNT 277 K/MM3 (134-434); RBC 3.59 M/mm3 (3.60-5.2); RDW 22.2 % (11.6-15.6); WHITE BLOOD COUNT 6.9 K/mm3 (4.0-10.0)
[2017-05-16 09:46] LABS: ADD RBC MORPHOLOGY YES
--- NOTE | 2017-05-16 09:46 | PDOC ---
History of Present Illness - General Chief Complaint: Shortness of Breath Stated Complaint: S.O.B. Time Seen by Provider: 05/16/17 08:02 - History of Present Illness Initial Comments: 61 year olf female with PMH of HTN, HLD, DM, CHF, COPD (5L home O2), hep C, CKD , schizophernia, and BPD presents to the ER because shortness of breath. She had trouble breathing this mornign after waking up despite the use of her inhaler. She then called EMS. At her home EMS gave IM decadron 10 mg and Duonebs x3, however, she refused ED admission. EMS left but then returned one hour later after another call by Cristela for the same issue. She was immediately brought to the ER at this point on non-rebreather. Upon admission to the ED her respiratory status was quite stable and she was placed on BiPAP without issue. Access was difficult but this author secured an US guided 20G in her left AC. Denies CP, SOB, fevers, chills, cough, sputum production. Her PCP is someone new whose name she does not recall. Past History - Past Medical History Allergies/Adverse Reactions: Allergies Allergy/AdvReac Type Severity Reaction Status Date / Time ibuprofen [From Motrin IB] Allergy Verified 05/16/17 08:13 metformin Allergy Verified 05/16/17 08:13 Penicillins Allergy Verified 05/16/17 08:13 Home Medications: Ambulatory Orders Acetaminophen [Tylenol .Regular Strength -] 650 mg PO Q8H PRN tablet 05/10/17 Albuterol Sulfate Inhaler - [Ventolin HFA Inhaler -] 2 inh PO Q4H PRN #1 inh Amlodipine Besylate [Norvasc -] 10 mg PO DAILY #30 tablet 05/10/17 Ascorbic Acid [Vitamin C -] 500 mg PO DAILY tablet 05/10/17 Aspirin Coated [Ecotrin -] 81 mg PO DAILY #30 tablet.ec 05/10/17 Atorvastatin Ca [Lipitor] 40 mg PO DAILY #30 tablet 05/10/17 Carvedilol [Coreg -] 12.5 mg PO BID #30 tablet 05/10/17 Escitalopram Oxalate [Lexapro -] 20 mg PO DAILY #30 tablet 05/10/17 Ferrous Sulfate [Feosol] 325 mg PO DAILY #30 ud 05/10/17 Furosemide [Lasix -] 40 mg PO BID@0600,1400 tablet 05/10/17 Hydralazine HCl 25 mg PO TID #30 tablet 05/10/17 Lisinopril [Prinivil] 5 mg PO DAILY #30 tablet 05/10/17 Miscellaneous Medical Supply [Glucometer Device] 1 each NR ASDIR #1 kit Multivitamins [Multivit ([facility] Formulary)] 1 tab PO DAILY tab 05/10/17 Nicotine Patch [Nicoderm Patch -] 14 mg TD DAILY patch 05/10/17 Olanzapine [Zyprexa -] 10 mg PO BID #30 tablet 05/10/17 Sitagliptin Phosphate [Januvia -] 50 mg PO DAILY@0700 tablet 05/10/17 Anemia: No Asthma: No Cancer: No Cardiac Disorders: Yes CVA: Yes COPD: Yes CHF: No DVT: No Dementia: No Diabetes: Yes GI Disorders: No Disorders: No HTN: Yes Hypercholesterolemia: Yes Liver Disease: Yes (Hepatitis C) Psychiatric Problems: Yes Seizures: No Thyroid Disease: (CKI) - Surgical History Abdominal Surgery: Yes Appendectomy: No Cardiac Surgery: No Cholecystectomy: No Lung Surgery: No Neurologic Surgery: No Orthopedic Surgery: No - Suicide/Smoking/Psychosocial Hx Smoking History: Current every day smoker Have you smoked in the past 12 months: Yes Number of Cigarettes Smoked Daily: 20 Information on smoking cessation initiated: No 'Breaking Loose' booklet given: 04/14/17 Hx Alcohol Use: No Drug/Substance Use Hx: No Substance Use Type: None Hx Substance Use Treatment: No Review of Systems - Review of Systems Constitutional: No: Chills, Diaphoresis, Fever, Loss of Appetite Respiratory: Yes: Shortness of Breath. No: Cough, Wheezing Cardiac (ROS): No: Chest Pain, Irregular Heart Rate ABD/GI: No: Diarrhea, Nausea, Vomiting : No: Burning, Dysuria Musculoskeletal: No: Neck Pain, Joint Stiffness Integumentary: No: Change in Color, Pruritus, Rash Neurological: No: Headache Psychiatric: Yes: Mood Swings Endocrine: No: Flushing, Increased Urine *Physical Exam - Vital Signs Last Vital Signs Temp Pulse Resp BP Pulse Ox 98.6 F 82 36 H 149/88 100 05/16/17 07:49 05/16/17 08:36 05/16/17 07:49 05/16/17 07:49 05/16/17 08:36 - Physical Exam General Appearance: Yes: Nourished. No: Appropriately Dressed (disheveled) HEENT: positive: EOMI, ANNA, Other (bipap in place) Neck: positive: Trachea midline, Normal Thyroid, Supple. negative: Tender, Rigid Respiratory/Chest: positive: Respiratory Distress, Accessory Muscle Use (slight accessory muscle use). negative: Chest Tender, Lungs Clear, Normal Breath Sounds (crackles across bilateral lung napoles mid-basilar) Cardiovascular: positive: Regular Rhythm, Regular Rate Gastrointestinal/Abdominal: positive: Normal Bowel Sounds, Flat, Soft. negative : Tender Musculoskeletal: positive: Normal Inspection Extremity: positive: Other (Refused removal of her shoes) Integumentary: positive: Normal Color (as far as could be examined around clothin gthat she refused to remove), Dry, Warm Neurologic: positive: Fully Oriented, Alert. negative: Normal Mood/Affect ( easil aggitated but apologized for her behavior a few hours after her hospital presentation) ED Treatment Course - LABORATORY CBC & Chemistry Diagram: 05/16/17 09:30 05/16/17 09:30 - ADDITIONAL ORDERS Additional order review: 05/16/17 09:30 RBC 3.59 L MCV 84.2 MCHC 29.0 L RDW 22.2 H MPV 6.8 L Neutrophils % 82.4 D Lymphocytes % 10.4 D Monocytes % 6.8 Eosinophils % 0.1 D Basophils % 0.3 - RADIOLOGY Radiology Studies Ordered: Category Date Time Status CHEST X-RAY PORTABLE* [RAD] Stat Radiology 05/16/17 08:11 Taken Medical Decision Making - Medical Decision Making 61 year old female well known to our hospital for CHF exacerbations presenting with what seems like a CHF exacerbation given PE. However, BNP not as high as usual. Patient given lasix 40 IV and continue on BiPAP. Labs were surprisingly normal but CXR may be hiding an underlying infection behind the pulmonary edema so patient was given vanc, aztreonam, and azithro given penicillin allergy. Admitted to [facility]. *DC/Admit/Observation/Transfer Diagnosis at time of Disposition: Acute on chronic diastolic CHF (congestive heart failure) - Discharge Dispostion Admit: Yes - Referrals - Patient Instructions - Post Discharge Activity
[2017-05-16 10:07] LABS: ARTERIAL BLOOD GAS BASE EXCESS 3.7 meq/l (-2-2); ARTERIAL BLOOD GAS PO2 62.1 mmHg (80-100); ARTERIAL BLOOD GAS pH 7.32 (7.35-7.45)
[2017-05-16] MEDS ORDERED: FUROSEMIDE 40 MG/4 ML INJECTABLE VIAL IVPUSH ONE (10:23)
[2017-05-16 10:28] LABS: ANION GAP 4 (8-16); BILIRUBIN,TOTAL 0.6 mg/dL (0.2-1.0); BLOOD UREA NITROGEN 16 mg/dL (7-18); CALCIUM 8.2 mg/dL (8.5-10.1); CHLORIDE 104 mmol/L (98-107); CO2 32 mmol/L (21-32); CREATININE 1.1 mg/dL (0.55-1.02); GLUCOSE,RANDOM 194 mg/dL (74-106); POTASSIUM 4.1 mmol/L (3.5-5.1); SGOT/AST 34 U/L (15-37); SGPT/ALT 37 U/L (12-78); SODIUM 140 mmol/L (136-145); TOT PROT 7.4 g/dl (6.4-8.2)
[2017-05-16 10:31] LABS: ALK PHOS 160 U/L (45-117); N-TERMINAL BNP 970.18 pg/ml (5-125)
[2017-05-16 10:37] LABS: VENOUS PC02 67.6 mmHg (38-52); VENOUS PH 7.28 (7.32-7.42); VENOUS PO2 34.8 mmHg (28-48)
[2017-05-16 10:39] LABS: ALLENS TEST POSITIVE
[2017-05-16] MEDS ORDERED: VANCOMYCIN 1,500 MG in DEXTROSE 5%-WATER - 500 ML IVPB ONE (10:45)
[2017-05-16] MEDS ORDERED: AZITHROMYCIN IVPB 500 MG in DEXTROSE 5%-WATER - 250 ML IVPB ONE (11:08)
[2017-05-16] MEDS ORDERED: AZTREONAM 1 GM in DEXTROSE 5%-WATER - 50 ML IVPB ONE (11:11)
[2017-05-16 12:17] LABS: ANISOCYTOSIS 3+; MACROCYTOSIS 2+; PLATELET ESTIMATE NORMAL
[2017-05-16] MEDS ORDERED: VANCOMYCIN 1,500 MG in SODIUM CHLORIDE 500 ML IVPB ONE (13:30)
--- NOTE | 2017-05-16 13:31 | HP ---
CHIEF COMPLAINT: "I couldn't breathe" PCP: Dr. Moses HISTORY OF PRESENT ILLNESS: 61 y/o F w/PMH of HTN, HLD, DM, CHF, hep C, CKD, schizophernia, bipolar d/o presents to the ER because she "couldn't breathe". She called EMS and was given IM decadron 10 mg and 3 x duonebs and refused to come to the ER. She then called EMS again approx 30min-1hr later for the same issue and came to the ER. Pt placed on bipap in ER and given lasix, aztreonam, azithro, duonebs. Currently the pt states she would like to go home and feels back at baseline. She denies CP, SOB, fevers, chills, cough, sputum production. Further history was difficult to obtain as pt was uncooperative. Of note, pt is on home O2 at 5L. ER course was notable for: (1) CXR (2) aztreonam, azithro, vanco, duo-neb (3) Recent Travel: denies PAST MEDICAL HISTORY:HTN, HLD, DM, CHF, hep C, CKD, schizophernia, bipolar d/o PAST SURGICAL HISTORY:hysterectomy Social History: Smoking: current smoker. smokes 8 cig/day since she was in her 20s. Alcohol: denies Drugs: denies Family History: pt refused to give family history Allergies ibuprofen [From Motrin IB] Allergy (Verified 05/16/17 08:13) metformin Allergy (Verified 05/16/17 08:13) Penicillins Allergy (Verified 05/16/17 08:13) HOME MEDICATIONS: Home Medications Medication Instructions Recorded Acetaminophen [Tylenol .Regular 650 mg PO Q8H PRN tablet 05/10/17 Strength -] Albuterol Sulfate Inhaler - 2 inh PO Q4H PRN #1 inh 05/10/17 [Ventolin HFA Inhaler -] Amlodipine Besylate [Norvasc -] 10 mg PO DAILY #30 tablet 05/10/17 Ascorbic Acid [Vitamin C -] 500 mg PO DAILY tablet 05/10/17 Aspirin Coated [Ecotrin -] 81 mg PO DAILY #30 tablet.ec 05/10/17 Atorvastatin Ca [Lipitor] 40 mg PO DAILY #30 tablet 05/10/17 Carvedilol [Coreg -] 12.5 mg PO BID #30 tablet 05/10/17 Escitalopram Oxalate [Lexapro -] 20 mg PO DAILY #30 tablet 05/10/17 Ferrous Sulfate [Feosol] 325 mg PO DAILY #30 ud 05/10/17 Furosemide [Lasix -] 40 mg PO BID@0600,1400 tablet 05/10/17 Hydralazine HCl 25 mg PO TID #30 tablet 05/10/17 Lisinopril [Prinivil] 5 mg PO DAILY #30 tablet 05/10/17 Miscellaneous Medical Supply 1 each NR ASDIR #1 kit 05/10/17 [Glucometer Device] Multivitamins [Multivit ([facility] 1 tab PO DAILY tab 05/10/17 Formulary)] Nicotine Patch [Nicoderm Patch -] 14 mg TD DAILY patch 05/10/17 Olanzapine [Zyprexa -] 10 mg PO BID #30 tablet 05/10/17 Sitagliptin Phosphate [Januvia -] 50 mg PO DAILY@0700 tablet 05/10/17 REVIEW OF SYSTEMS CONSTITUTIONAL: Absent: fever, chills CARDIOVASCULAR: Absent: chest pain RESPIRATORY: +sob Absent: cough GASTROINTESTINAL: Absent: abdominal pain Further ROS unable to be obtained as pt was uncooperative. PHYSICAL EXAMINATION Vital Signs - 24 hr 05/16/17 05/16/17 05/16/17 07:49 08:35 08:36 Temperature 98.6 F Pulse Rate 96 H 82 Pulse Rate [ Left Radial] Respiratory 36 H Rate Blood Pressure 149/88 Blood Pressure [Right Arm] O2 Sat by Pulse 100 96 100 Oximetry (%) 05/16/17 05/16/17 05/16/17 09:30 10:00 10:45 Temperature Pulse Rate Pulse Rate [ 85 93 H Left Radial] Respiratory 22 Rate Blood Pressure Blood Pressure 157/89 158/94 [Right Arm] O2 Sat by Pulse 96 96 97 Oximetry (%) 05/16/17 12:00 Temperature Pulse Rate Pulse Rate [ 87 Left Radial] Respiratory 16 Rate Blood Pressure Blood Pressure 133/85 [Right Arm] O2 Sat by Pulse 100 Oximetry (%) Pt uncooperative for most of physical exam GENERAL: Awake, alert, and fully oriented, in no acute distress. Bipap disconnected by pt. Pt able to speak in full sentences. Eating pasta at time of interview. EARS, NOSE, THROAT: Ears normal, nares patent, oropharynx clear without exudates. Moist mucous membranes. LUNGS: b/l wheezing but overall diminished breath sounds. HEART: Regular rate and rhythm, normal S1 and S2 ABDOMEN: Soft, obese, nontender, not distended, normoactive bowel sounds. LOWER EXTREMITIES: 2+ pitting edema in b/l LE NEUROLOGICAL: Normal speech. PSYCHIATRIC: uncooperative with history and physical exam. SKIN: Warm, dry Laboratory Results - last 24 hr 05/16/17 05/16/17 05/16/17 09:30 09:30 09:30 WBC 6.9 D RBC 3.59 L Hgb 8.8 L Hct 30.2 L MCV 84.2 MCH 24.4 L MCHC 29.0 L RDW 22.2 H Plt Count 277 MPV 6.8 L Neutrophils % 82.4 D Lymphocytes % 10.4 D Monocytes % 6.8 Eosinophils % 0.1 D Basophils % 0.3 Hypochromia 1+ Platelet Estimate Normal Polychromasia 1+ Poikilocytosis 0 Anisocytosis 3+ Microcytosis 1+ Macrocytosis 2+ Puncture Site ABG pH ABG pCO2 at Pt Temp ABG pO2 at Pt Temp ABG HCO3 ABG O2 Sat (Measured) ABG O2 Content ABG Base Excess Good Test VBG pH 7.28 L POC VBG pCO2 67.6 H* POC VBG pO2 34.8 D Mixed VBG HCO3 30.9 H Oxygen Flow Rate Sodium Cancelled Potassium Cancelled Chloride Cancelled Carbon Dioxide Cancelled Anion Gap Cancelled BUN Cancelled Creatinine Cancelled Creat Clearance w eGFR Cancelled Random Glucose Cancelled Lactic Acid Calcium Cancelled Total Bilirubin Cancelled AST Cancelled ALT Cancelled Alkaline Phosphatase Cancelled Creatine Kinase Troponin I B-Natriuretic Peptide Total Protein Cancelled Albumin Cancelled 05/16/17 05/16/17 05/16/17 09:30 09:30 09:37 WBC RBC Hgb Hct MCV MCH MCHC RDW Plt Count MPV Neutrophils % Lymphocytes % Monocytes % Eosinophils % Basophils % Hypochromia Platelet Estimate Polychromasia Poikilocytosis Anisocytosis Microcytosis Macrocytosis Puncture Site Right brachial ABG pH 7.32 L ABG pCO2 at Pt Temp 61.0 H* ABG pO2 at Pt Temp 62.1 L ABG HCO3 30.2 H ABG O2 Sat (Measured) 90.0 ABG O2 Content 10.7 L ABG Base Excess 3.7 H Good Test Positive VBG pH POC VBG pCO2 POC VBG pO2 Mixed VBG HCO3 Oxygen Flow Rate Yes Sodium 140 Potassium 4.1 Chloride 104 Carbon Dioxide 32 Anion Gap 4 L BUN 16 Creatinine 1.1 H Creat Clearance w eGFR 50.33 Random Glucose 194 H Lactic Acid 0.8 Calcium 8.2 L Total Bilirubin 0.6 AST 34 ALT 37 Alkaline Phosphatase 160 H Creatine Kinase 26 Troponin I < 0.02 B-Natriuretic Peptide 970.18 H Total Protein 7.4 Albumin 3.0 L Imaging: CXR: 05/16/17: Compared to 05/05/17 - worse. Progressive pulmonary findings. Active Medications Albuterol/Ipratropium (Duoneb -) 1 amp NEB RQID PRN PRN Reason: SHORTNESS OF BREATH Amlodipine Besylate (Norvasc -) 10 mg PO DAILY [facility] Aspirin (Ecotrin -) 81 mg PO DAILY [facility] Atorvastatin Calcium (Lipitor -) 40 mg PO HS [facility] Carvedilol (Coreg -) 12.5 mg PO BID [facility] Furosemide (Lasix Injection -) 40 mg IVPUSH DAILY [facility] Heparin Sodium (Porcine) (Heparin -) 5,000 unit SQ TID [facility] Hydralazine HCl (Apresoline -) 25 mg PO TID [facility] Vancomycin HCl 1,500 mg/ (Sodium Chloride) 500 mls @ 250 mls/hr IVPB ONCE ONE PRN Reason: Protocol Stop: 05/16/17 15:29 Insulin Aspart (Novolog Vial Sliding Scale -) 0 vial SQ ACHS [facility] PRN Reason: Protocol Lisinopril (Prinivil) 5 mg PO DAILY [facility] Nicotine (Nicoderm Patch -) 14 mg TD DAILY [facility] Non-Formulary Medication (Escitalopram Oxalate [Lexapro -]) 20 mg PO DAILY [facility] Olanzapine (Zyprexa -) 10 mg PO BID [facility] ASSESSMENT/PLAN: 61 y/o F w/PMH of HTN, HLD, DM, CHF, hep C, CKD, schizophernia, bipolar d/o presents to the ER because she "couldn't breathe". Admitted for CHF exacerbation. -Acute hypoxic, hypercapnic respiratory failure secondary to likely CHF exacerbation w/superimposed COPD exacerbation -elevated BNP, LE edema, SOB -Lasix 40 mg IV qd -f/u CXR in AM -fluid restriction -duo-nebs qid PRN -ABG in AM -Bipap as needed -O2 supplementation to keep O2 sat above 88% -no steroids indicated at this time, no abx indicated at this time -f/u cultures -HTN -c/w home meds (amlodipine 10 mg po qd, coreg 12.5 mg po bid, hydralazine 25 mg po TID, lisinopril 5 mg po qd) -DM -BGMs, ISS ACHS -Schizophernia, bipolar d/o -zyprexa 10 mg po bid -CAD -c/w atorvastatin 40 mg po qhs -c/w ASA 81 mg -DVT ppx -Heparin 5000 units sq q8h -FEN -No fluids at this time. FLuid restriction w/CHF exacerbation -Monitor electrolytes -Diabetic, low sodium, low potassium diet. -Dispo: -Admit to med surg. Pt says she will only stay one night and will leave tomorrow for a doctor's appt that she has at 9:30 AM. Visit type - Emergency Visit Emergency Visit: Yes Care time: The patient presented to the Emergency Department on the above date and was hospitalized for further evaluation of their emergent condition. - New Patient This patient is new to me today: Yes Date on this admission: 05/16/17 - Critical Care Critical Care patient: No
--- NOTE | 2017-05-16 13:35 | PN ---
Teaching Attending Note Name of Resident: Tu Kohli ATTENDING PHYSICIAN STATEMENT I saw and evaluated the patient. I reviewed the resident's note and discussed the case with the resident. I agree with the resident's findings and plan as documented. SUBJECTIVE: This is a 61 year old woman with history of HTN, hyperlipidemia, type 2 DM, chronic diastolic heart failure, chronic hypoxic and hypercapnic respiratory failure, stage 3 CKD, anemia, schizophrenia, bipolar disorder, morbid obesity, possible DIRK who comes to the ED with shortness of breath. She had called EMS and was treated with Decadron IM and DuoNeb. She refused to go to the ED. She called EMS again and was brought to the ED. She had been admitted 05/03-05/10 with acute hypoxic and hypercapnic respiratory failure and acute on chronic diastolic heart failure. OBJECTIVE: Vital Signs Period Temp Pulse Resp BP Sys/Osei Pulse Ox Last 24 Hr 98.6 F 82-96 16-36 133-158/85-94 96-100 HEART: S1S2, RRR LUNGS: Bilateral rales and wheezes ABDOMEN: Obese, soft, non-tender, non-distended, normal BS EXTREMITIES: 2+ edema Laboratory Tests 05/16/17 05/16/17 05/16/17 09:30 09:30 09:30 WBC 6.9 D RBC 3.59 L Hgb 8.8 L Hct 30.2 L MCV 84.2 MCH 24.4 L MCHC 29.0 L RDW 22.2 H Plt Count 277 MPV 6.8 L Neutrophils % 82.4 D Lymphocytes % 10.4 D Monocytes % 6.8 Eosinophils % 0.1 D Basophils % 0.3 Hypochromia 1+ Platelet Estimate Normal Polychromasia 1+ Poikilocytosis 0 Anisocytosis 3+ Microcytosis 1+ Macrocytosis 2+ Puncture Site ABG pH ABG pCO2 at Pt Temp ABG pO2 at Pt Temp ABG HCO3 ABG O2 Sat (Measured) ABG O2 Content ABG Base Excess Good Test VBG pH 7.28 L POC VBG pCO2 67.6 H* POC VBG pO2 34.8 D Mixed VBG HCO3 30.9 H Oxygen Flow Rate Sodium Cancelled Potassium Cancelled Chloride Cancelled Carbon Dioxide Cancelled Anion Gap Cancelled BUN Cancelled Creatinine Cancelled Creat Clearance w eGFR Cancelled Random Glucose Cancelled Lactic Acid Calcium Cancelled Total Bilirubin Cancelled AST Cancelled ALT Cancelled Alkaline Phosphatase Cancelled Creatine Kinase Troponin I B-Natriuretic Peptide Total Protein Cancelled Albumin Cancelled 05/16/17 05/16/17 05/16/17 09:30 09:30 09:37 WBC RBC Hgb Hct MCV MCH MCHC RDW Plt Count MPV Neutrophils % Lymphocytes % Monocytes % Eosinophils % Basophils % Hypochromia Platelet Estimate Polychromasia Poikilocytosis Anisocytosis Microcytosis Macrocytosis Puncture Site Right brachial ABG pH 7.32 L ABG pCO2 at Pt Temp 61.0 H* ABG pO2 at Pt Temp 62.1 L ABG HCO3 30.2 H ABG O2 Sat (Measured) 90.0 ABG O2 Content 10.7 L ABG Base Excess 3.7 H Good Test Positive VBG pH POC VBG pCO2 POC VBG pO2 Mixed VBG HCO3 Oxygen Flow Rate Yes Sodium 140 Potassium 4.1 Chloride 104 Carbon Dioxide 32 Anion Gap 4 L BUN 16 Creatinine 1.1 H Creat Clearance w eGFR 50.33 Random Glucose 194 H Lactic Acid 0.8 Calcium 8.2 L Total Bilirubin 0.6 AST 34 ALT 37 Alkaline Phosphatase 160 H Creatine Kinase 26 Troponin I < 0.02 B-Natriuretic Peptide 970.18 H Total Protein 7.4 Albumin 3.0 L Home Medications Medication Instructions Recorded Acetaminophen [Tylenol .Regular 650 mg PO Q8H PRN tablet 05/10/17 Strength -] Albuterol Sulfate Inhaler - 2 inh PO Q4H PRN #1 inh 05/10/17 [Ventolin HFA Inhaler -] Amlodipine Besylate [Norvasc -] 10 mg PO DAILY #30 tablet 05/10/17 Ascorbic Acid [Vitamin C -] 500 mg PO DAILY tablet 05/10/17 Aspirin Coated [Ecotrin -] 81 mg PO DAILY #30 tablet.ec 05/10/17 Atorvastatin Ca [Lipitor] 40 mg PO DAILY #30 tablet 05/10/17 Carvedilol [Coreg -] 12.5 mg PO BID #30 tablet 05/10/17 Escitalopram Oxalate [Lexapro -] 20 mg PO DAILY #30 tablet 05/10/17 Ferrous Sulfate [Feosol] 325 mg PO DAILY #30 ud 05/10/17 Furosemide [Lasix -] 40 mg PO BID@0600,1400 tablet 05/10/17 Hydralazine HCl 25 mg PO TID #30 tablet 05/10/17 Lisinopril [Prinivil] 5 mg PO DAILY #30 tablet 05/10/17 Miscellaneous Medical Supply 1 each NR ASDIR #1 kit 05/10/17 [Glucometer Device] Multivitamins [Multivit ([facility] 1 tab PO DAILY tab 05/10/17 Formulary)] Nicotine Patch [Nicoderm Patch -] 14 mg TD DAILY patch 05/10/17 Olanzapine [Zyprexa -] 10 mg PO BID #30 tablet 05/10/17 Sitagliptin Phosphate [Januvia -] 50 mg PO DAILY@0700 tablet 05/10/17 ASSESSMENT AND PLAN: This is a 61 year old woman with history of HTN, hyperlipidemia, type 2 DM, chronic diastolic heart failure, chronic hypoxic and hypercapnic respiratory failure, stage 3 CKD, anemia, schizophrenia, bipolar disorder, morbid obesity, possible DIRK who presented to the ED complaining of shortness of breath. 1. Acute on chronic hypoxic and hypercapnic respiratory failure secondary to acute on chronic diastolic heart failure - Treated in ED with Lasix IV, BiPAP, DuoNeb, Zithromax, Aztreonam, Vancomycin - Continue Lasix IV - Daily weight - Monitor I&O - Fluid restriction - DuoNeb as needed 2. HTN -Continue Norvasc, Coreg, Hydralazine, Lisinopril, Lasix 3. Type 2 DM - Hold Januvia - Fingersticks with Novolog sliding scale 4. Hyperlipidemia - Continue Lipitor 5. Schizophrenia, bipolar disorder - Continue Zyprexa, Lexapro 6. Stage 3 CKD - Stable 7. Anemia - Continue ferrous sulfate 8. Possible DIRK 9. Morbid obesity
[2017-05-16 15:23] LABS: URINE APPEARANCE CLEAR; URINE BILIRUBIN NEGATIVE (NEGATIVE); URINE BLOOD NEGATIVE (NEGATIVE); URINE COLOR STRAW; URINE GLUCOSE (UA) NEGATIVE (NEGATIVE); URINE KETONE NEGATIVE (NEGATIVE); URINE LEUK ESTERASE NEGATIVE (NEGATIVE); URINE NITRITE NEGATIVE (NEGATIVE); URINE PROTEIN NEGATIVE (NEGATIVE); URINE UROBILINOGEN NEGATIVE mg/dL (0.2-1.0)
[2017-05-16] MEDS ORDERED: INSULIN SLIDING SCALE (NOVOLOG) 1 VIAL SQ SCH (16:30)
[2017-05-16] MEDS: INSULIN SLIDING SCALE (NOVOLOG) 1 VIAL SQ SCH ×2 (17:35→21:50)
[2017-05-16] MEDS: HEPARIN NA (PORCINE) 5,000 UNITS/ML 1ML VIAL SQ SCH ×2 (18:19→21:50)
[2017-05-16] MEDS ORDERED: ACETAMINOPHEN 500 MG TABLET (FP) PO ONE (20:28)
[2017-05-16] MEDS ORDERED: INSULIN (NOVOLOG) ASPART 100 UNITS/ML 10ML VIAL ONE (21:46)
[2017-05-16] MEDS: hydrALAZINE HCL 25 MG TABLET (FP) PO SCH (21:49)
[2017-05-16] MEDS ORDERED: CARVEDILOL 12.5 MG TABLET (FP) PO SCH (22:00)
[2017-05-16] MEDS ORDERED: ATORVASTATIN CA 40 MG TABLET (FP) PO SCH (22:00)
[2017-05-16] MEDS ORDERED: OLANZapine 10 MG TABLET PO SCH (22:00)
[2017-05-16 22:11] LABS: CARBOXYHEMOGLOBIN 4.4 gm% (0.5-2.0)
[2017-05-16] MEDS: ALBUTEROL SO4 2.5/IPRATROPIUM 0.5 INH SOL 3 ML VIAL.NEB. NEB PRN (22:45)
[2017-05-17] MEDS ORDERED: ACETAMINOPHEN 325 MG TABLET (FP) PO ONE (02:30)
[2017-05-17] MEDS ORDERED: oxyCODONE HCL 5 MG TABLET PO ONE (02:30)
[2017-05-17 05:46] VITALS: BP 156/88; PULSE 94; TEMP 97.7
[2017-05-17] MEDS: HEPARIN NA (PORCINE) 5,000 UNITS/ML 1ML VIAL SQ SCH (06:13)
[2017-05-17] MEDS: hydrALAZINE HCL 25 MG TABLET (FP) PO SCH (06:13)
[2017-05-17] MEDS: INSULIN SLIDING SCALE (NOVOLOG) 1 VIAL SQ SCH (06:13)
[2017-05-17] MEDS ORDERED: INSULIN (NOVOLOG) ASPART 100 UNITS/ML 10ML VIAL ONE (07:06)
[2017-05-17] MEDS: ALBUTEROL SO4 2.5/IPRATROPIUM 0.5 INH SOL 3 ML VIAL.NEB. NEB PRN (07:15)
[2017-05-17 07:41] LABS: ARTERIAL BLOOD GAS pH 7.31 (7.35-7.45)
[2017-05-17 07:42] LABS: ALLENS TEST POSITIVE; ARTERIAL BLD GAS O2 SATURATION 92.6 % (90-98.9); ARTERIAL BLOOD GAS BASE EXCESS 5.2 meq/l (-2-2)
[2017-05-17 07:45] LABS: ARTERIAL BLOOD GAS PCO2 65.4 mmHg (35-45)
--- NOTE | 2017-05-17 08:04 | EKG ---
Test Reason : Blood Pressure : / mmHG Vent. Rate : 102 BPM Atrial Rate : 102 BPM P-R Int : 166 ms QRS Dur : 074 ms QT Int : 346 ms P-R-T Axes : 065 033 054 degrees QTc Int : 450 ms SINUS TACHYCARDIA CANNOT RULE OUT ANTERIOR INFARCT , AGE UNDETERMINED ABNORMAL ECG WHEN COMPARED WITH ECG OF 03-MAY-2017 17:05, ABERRANT CONDUCTION IS NO LONGER PRESENT T WAVE INVERSION NO LONGER EVIDENT IN LATERAL LEADS Confirmed by BEAR WEINER, FRIDA ([id number]) on 05/17/2017 8:04:15 AM Referred By: Confirmed By:FRIDA SIFUENTES MD
[2017-05-17] MEDS ORDERED: amLODIPine BESYLATE 10 MG TABLET (FP) PO SCH (10:00)
[2017-05-17] MEDS ORDERED: NICOTINE 14 MG/24 HOURS TOPICAL PATCH TD SCH (10:00)
[2017-05-17] MEDS ORDERED: ESCITALOPRAM OXALATE 20 MG TABLET (FP) PO SCH (10:00)
[2017-05-17] MEDS ORDERED: ASPIRIN COATED 81 MG TABLET.EC PO SCH (10:00)
[2017-05-17] MEDS ORDERED: LISINOPRIL 5 MG TABLET (FP) PO SCH (10:00)
[2017-05-17] MEDS ORDERED: FUROSEMIDE 40 MG/4 ML INJECTABLE VIAL IVPUSH SCH (10:00)
--- NOTE | 2017-05-17 14:40 | PN ---
Teaching Attending Note Name of Resident: Laurie Sunshine ATTENDING PHYSICIAN STATEMENT patient signed out AMA prior to my assessment with patient. pt was counseled by Resident of risks and benefits of leaving and risk of if not treated. reported that pt verbalized understanding of these risks and signed out AMA
--- NOTE | 2017-05-17 16:19 | DS ---
Physical Exam: SUBJECTIVE: Patient seen and examined. she was uncooperative and refused to answer most questions. She was threatening to leave AMA. OBJECTIVE: Vital Signs Period Temp Pulse Resp BP Sys/Osei Pulse Ox Last 24 Hr 97.7 F-98.2 F 88-94 16-22 128-156/79-88 94-100 PHYSICAL EXAM GENERAL: Obese, dyspneic, in no acute distress. HEENT: PERRL, No JVD, EOMI LUNGS: scattered wheezing HEART: RRR, S1, S2 without murmur ABDOMEN: Soft, nontender, nondistended, normoactive bowel sounds, no guarding, no rebound, no hepatomegaly EXTREMITIES: 2+ DP pulses, 2+ pitting edema to mid-leg PSYCH: Normal mood, normal affect. SKIN: Warm, dry, no rashes or lesions noted LABS Laboratory Results - last 24 hr 05/16/17 05/16/17 05/17/17 09:38 21:41 06:11 Anticoagulation Therapy Puncture Site ABG pH ABG pCO2 at Pt Temp ABG pO2 at Pt Temp ABG HCO3 ABG O2 Sat (Measured) ABG O2 Content ABG Base Excess Good Test Carboxyhemoglobin 4.4 H Methemoglobin 0.7 O2 Delivery Device Oxygen Flow Rate Vent Mode Vent Rate Mechanical Rate PEEP Pressure Support Vent POC Glucometer 269 156 05/17/17 07:25 Anticoagulation Therapy No Result Required. Puncture Site Left radial ABG pH 7.31 L ABG pCO2 at Pt Temp 65.4 H* ABG pO2 at Pt Temp 69.0 L ABG HCO3 32.0 H ABG O2 Sat (Measured) 92.6 ABG O2 Content 10.6 L ABG Base Excess 5.2 H Good Test Positive Carboxyhemoglobin Methemoglobin O2 Delivery Device Nasal Oxygen Flow Rate 3l Vent Mode No Result Required. Vent Rate No Result Required. Mechanical Rate No Result Required. PEEP 0.0 Pressure Support Vent No Result Required. POC Glucometer HOSPITAL COURSE: Date of Admission:05/16/17 This is a 61 year old female, pmhx includes HTN, HLD, CHF, DM II, COPD, hepatitis C, CKD, schizophrenia/bipolar disorder and recurrent admissions, presented to the ED with worsening SOB by EMS. Patient was found to have Acute hypoxic hypercapnic respiratory distress. She was given lasix for fluid overload. Patient was also being managed with breathing treatments with Duonebs , abx and albuterol. Patient was being uncooperative overnight. Went out to smoke a cigarette multiple times. Patient then decided to leave AMA. Had full, long discussion with patient of risks of leaving which includes possible . Patient still decided to leave AMA. Date of Discharge: 05/17/17 Minutes to complete discharge: 35 Discharge Summary Reason For Visit: ACUTE ON CHRONIC DIASTOLIC CHF - Instructions Disposition: AGAINST MEDICAL ADVICE - Home Medications Comprehensive Discharge Medication List: Ambulatory Orders Acetaminophen [Tylenol .Regular Strength -] 650 mg PO Q8H PRN tablet 05/10/17 Albuterol Sulfate Inhaler - [Ventolin HFA Inhaler -] 2 inh PO Q4H PRN #1 inh Amlodipine Besylate [Norvasc -] 10 mg PO DAILY #30 tablet 05/10/17 Ascorbic Acid [Vitamin C -] 500 mg PO DAILY tablet 05/10/17 Aspirin Coated [Ecotrin -] 81 mg PO DAILY #30 tablet.ec 05/10/17 Atorvastatin Ca [Lipitor] 40 mg PO DAILY #30 tablet 05/10/17 Carvedilol [Coreg -] 12.5 mg PO BID #30 tablet 05/10/17 Escitalopram Oxalate [Lexapro -] 20 mg PO DAILY #30 tablet 05/10/17 Ferrous Sulfate [Feosol] 325 mg PO DAILY #30 ud 05/10/17 Furosemide [Lasix -] 40 mg PO BID@0600,1400 tablet 05/10/17 Hydralazine HCl 25 mg PO TID #30 tablet 05/10/17 Lisinopril [Prinivil] 5 mg PO DAILY #30 tablet 05/10/17 Miscellaneous Medical Supply [Glucometer Device] 1 each NR ASDIR #1 kit Multivitamins [Multivit ([facility] Formulary)] 1 tab PO DAILY tab 05/10/17 Nicotine Patch [Nicoderm Patch -] 14 mg TD DAILY patch 05/10/17 Olanzapine [Zyprexa -] 10 mg PO BID #30 tablet 05/10/17 Sitagliptin Phosphate [Januvia -] 50 mg PO DAILY@0700 tablet 05/10/17 This patient is new to me today: Yes Date on this admission: 05/17/17 Emergency Visit: Yes ED Registration Date: 05/16/17 Care time: The patient presented to the Emergency Department on the above date and was hospitalized for further evaluation of their emergent condition. Critical Care patient: No - Discharge Referral Referred to [facility] No
== END 2017-05-17 09:50 | disposition left against medical advice (07) | DRG 194 ==
LOC: JER 07:49 → JERBED 12:48 → J5S 19:22
PROVIDERS: ADMIT Internal Medicine; ATTEND Internal Medicine
PROC: 5A09357 Assistance with Respiratory Ventilation, Less than 24 Consecutive Hours, Continuous Positive Airway Pressure (ICD-10-PCS; principal; 2017-05-16)
DX: I13.0 Hypertensive heart and chronic kidney disease with heart failure and stage 1 through stage 4 chronic kidney disease, or unspecified chronic kidney disease (principal); I50.33 Acute on chronic diastolic (congestive) heart failure; J96.21 Acute and chronic respiratory failure with hypoxia; J96.22 Acute and chronic respiratory failure with hypercapnia; E11.22 Type 2 diabetes mellitus with diabetic chronic kidney disease; E66.01 Morbid (severe) obesity due to excess calories; Z68.41 Body mass index [BMI] 40.0-44.9, adult; N18.3 Chronic kidney disease, stage 3 (moderate); I25.10 Atherosclerotic heart disease of native coronary artery without angina pectoris; D64.9 Anemia, unspecified; F17.210 Nicotine dependence, cigarettes, uncomplicated; E78.5 Hyperlipidemia, unspecified; G47.33 Obstructive sleep apnea (adult) (pediatric); B19.20 Unspecified viral hepatitis C without hepatic coma; F20.9 Schizophrenia, unspecified; F31.9 Bipolar disorder, unspecified; Z79.84 Long term (current) use of oral hypoglycemic drugs
CPT/HCPCS: 36415; 36600; 71045-TC; 80053; 81003; 82375; 82550; 82803; 82962; 83050; 83605; 83880; 84484; 85025; 87040; 87086; 87186; 87804; 93005; 93010; 94640; 94660; 99285-25; J1644

== ENCOUNTER 2017-05-18 02:38 | Inpatient (IN) | payer OTHER ==
[2017-05-18 02:44] VITALS: BMI 25.7
--- NOTE | 2017-05-18 02:58 | PDOC ---
History of Present Illness - History of Present Illness Initial Comments: 05/18/17 03:36 61 year old female with PMH of HTN, HLD, DM, CHF, COPD (5L home O2), hep C, CKD , schizophrenia, and BPD presents to the ER for shortness of breath. EMS given 10 mg decadron im and 2 duo-neb in field. Patient was seen here in the ED yesterday for the same complaint and signed out against medical advice because she no longer wanted to stay. She returns today because she continues to be SOB and states she also wants something for her anxiety. Admits to dry cough. Denies chest pain, headache, fever Allergies: ibuprofen, metformin, penicillins <Bren Davis - Last Filed: 05/18/17 03:54> - General History Source: Patient <Hilario Hanks - Last Filed: 05/18/17 19:49> - General Chief Complaint: Shortness of Breath Stated Complaint: DIFFICULTY BREATHING Time Seen by Provider: 05/18/17 02:57 Past History <Bren Davis - Last Filed: 05/18/17 03:54> - Past Medical History Anemia: No Asthma: No Cancer: No Cardiac Disorders: Yes CVA: Yes COPD: Yes CHF: No DVT: No Dementia: No Diabetes: Yes GI Disorders: No Disorders: No HTN: Yes Hypercholesterolemia: Yes Liver Disease: Yes (Hepatitis C) Psychiatric Problems: Yes Seizures: No Thyroid Disease: (CKI) - Surgical History Abdominal Surgery: Yes Appendectomy: No Cardiac Surgery: No Cholecystectomy: No Lung Surgery: No Neurologic Surgery: No Orthopedic Surgery: No - Suicide/Smoking/Psychosocial Hx Smoking History: Never smoked Have you smoked in the past 12 months: No Number of Cigarettes Smoked Daily: 20 Information on smoking cessation initiated: No 'Breaking Loose' booklet given: 04/14/17 Hx Alcohol Use: No Drug/Substance Use Hx: No Substance Use Type: None Hx Substance Use Treatment: No <Hilario Hanks - Last Filed: 05/18/17 19:49> - Past Medical History Allergies/Adverse Reactions: Allergies Allergy/AdvReac Type Severity Reaction Status Date / Time ibuprofen [From Motrin IB] Allergy Verified 05/18/17 02:42 metformin Allergy Verified 05/18/17 02:42 Penicillins Allergy Verified 05/18/17 02:42 Home Medications: Ambulatory Orders Acetaminophen [Tylenol .Regular Strength -] 650 mg PO Q8H PRN tablet 05/10/17 Albuterol Sulfate Inhaler - [Ventolin HFA Inhaler -] 2 inh PO Q4H PRN #1 inh Amlodipine Besylate [Norvasc -] 10 mg PO DAILY #30 tablet 05/10/17 Ascorbic Acid [Vitamin C -] 500 mg PO DAILY tablet 05/10/17 Aspirin Coated [Ecotrin -] 81 mg PO DAILY #30 tablet.ec 05/10/17 Atorvastatin Ca [Lipitor] 40 mg PO DAILY #30 tablet 05/10/17 Carvedilol [Coreg -] 12.5 mg PO BID #30 tablet 05/10/17 Escitalopram Oxalate [Lexapro -] 20 mg PO DAILY #30 tablet 05/10/17 Ferrous Sulfate [Feosol] 325 mg PO DAILY #30 ud 05/10/17 Furosemide [Lasix -] 40 mg PO BID@0600,1400 tablet 05/10/17 Hydralazine HCl 25 mg PO TID #30 tablet 05/10/17 Lisinopril [Prinivil] 5 mg PO DAILY #30 tablet 05/10/17 Multivitamins [Multivit ([facility] Formulary)] 1 tab PO DAILY tab 05/10/17 Nicotine Patch [Nicoderm Patch -] 14 mg TD DAILY patch 05/10/17 Olanzapine [Zyprexa -] 10 mg PO BID #30 tablet 05/10/17 Sitagliptin Phosphate [Januvia -] 50 mg PO DAILY@0700 tablet 05/10/17 Review of Systems - Review of Systems Comments:: 05/18/17 03:42 CONSTITUTIONAL: Absent: fever, no chills, no fatigue EYES: Absent: visual changes ENT: Absent: ear pain, no sore throat CARDIOVASCULAR: Absent: chest pain, no palpitations RESPIRATORY: Present: dry cough, SOB GI: Absent: abdominal pain, no nausea, no vomiting, no constipation, no diarrhea GENITOURINARY: Absent: dysuria, no frequency, no hematuria MUSCULOSKELETAL: Absent: back pain, no arthralgia, no myalgia SKIN: Absent: rash <Bren Davis - Last Filed: 05/18/17 03:54> *Physical Exam - Vital Signs Last Vital Signs Temp Pulse Resp BP Pulse Ox 98.4 F 80 24 153/88 92 L 05/18/17 03:10 05/18/17 02:42 05/18/17 02:42 05/18/17 02:42 05/18/17 02:42 - Physical Exam Comments: 05/18/17 03:38 GENERAL: Well-appearing, well-nourished. Mild-moderate respiratory distress. HEENT: Normocephalic, atraumatic. PERRL, EOM intact. CARDIOVASCULAR: Normal S1, S2. Regular rate and rhythm. PULMONARY: Decreased breath sounds. Coarse wheezing and crackles. Retractions. Conversational dyspnea. ABDOMEN: Soft, obese, non-distended, non-tender. EXTREMITIES: +1 LE pitting edema , no clubbing or cynanosis.Normal ROM in all four extremities. No gross deformities. SKIN: Warm, dry. No rash NEUROLOGICAL: No focal neurological deficits. <Bren Davis - Last Filed: 05/18/17 03:54> - Vital Signs Last Vital Signs Temp Pulse Resp BP Pulse Ox 97.9 F 80 24 153/88 92 L 05/18/17 02:42 05/18/17 02:42 05/18/17 02:42 05/18/17 02:42 05/18/17 02:42 <Hilario Hanks - Last Filed: 05/18/17 19:49> Heart Score/ECG Review - ECG Intrepretation Comment:: 05/18/17 03:54 Normal sinus rhythm Cannot rule out Anterior infarct Abnormal ECG Vent. rate 76 bpm <Bren Davis - Last Filed: 05/18/17 03:54> ED Treatment Course - LABORATORY CBC & Chemistry Diagram: 05/18/17 03:00 05/18/17 03:00 - ADDITIONAL ORDERS Additional order review: 05/18/17 03:00 RBC 3.46 L MCV 83.1 MCHC 29.8 L RDW 21.4 H MPV 7.1 L Neutrophils % 69.3 Lymphocytes % 17.4 D Monocytes % 12.5 H D Eosinophils % 0.3 D Basophils % 0.5 <Bren Davis - Last Filed: 05/18/17 03:54> - LABORATORY CBC & Chemistry Diagram: 05/18/17 03:00 05/18/17 03:00 <Hilario Hanks - Last Filed: 05/18/17 19:49> Medical Decision Making - Medical Decision Making 05/18/17 19:49 Dr. Hanks: The scribe's documentation has been prepared under my direction and personally reviewed by me in its entirery. I confirm that the note above accurately reflects all work, treatment, procedures, and medical decision making performed by me. <Hilario Hanks - Last Filed: 05/18/17 19:49> *DC/Admit/Observation/Transfer - Attestations Scribe Attestion: 05/18/17 03:44 Documentation prepared by Bren Davis, acting as caregivers non medical for Hilario Hanks MD. <Bren Davis - Last Filed: 05/18/17 03:54> - Discharge Dispostion Admit: Yes <Hilario Hanks - Last Filed: 05/18/17 19:49> Diagnosis at time of Disposition: COPD exacerbation, Acute on chronic diastolic (congestive) heart failure - Discharge Dispostion Condition at time of disposition: Stable
[2017-05-18 03:10] LABS: BASO % 0.5 % (0-2.0); EOS % 0.3 % (0-4.5); HEMATOCRIT 28.8 % (32.4-45.2); HEMOGLOBIN 8.6 GM/dL (10.7-15.3); LYMPH % 17.4 % (8-40); MCH 24.7 pg (25.7-33.7); MCHC 29.8 g/dl (32.0-36.0); MEAN CELL VOLUME 83.1 fl (80-96); MEAN PLT VOLUME 7.1 fl (7.5-11.1); MONO % 12.5 % (3.8-10.2); NEUT % 69.3 % (42.8-82.8); PLATELET COUNT 275 K/MM3 (134-434); RBC 3.46 M/mm3 (3.60-5.2); RDW 21.4 % (11.6-15.6); WHITE BLOOD COUNT 5.4 K/mm3 (4.0-10.0)
[2017-05-18] MEDS ORDERED: ALBUTEROL SO4 2.5/IPRATROPIUM 0.5 INH SOL 3 ML VIAL.NEB. NEB STA (03:30)
[2017-05-18] MEDS ORDERED: methylPREDNISolone NA SUCC 125 MG/2 ML VIAL IVPB ONE (03:30)
[2017-05-18 03:31] LABS: PROTHROMBIN TIME (PATIENT) 11.3 SEC (9.98-11.88)
[2017-05-18] MEDS ORDERED: MAGNESIUM SULF 50% (8.12 MEQ/2 ML-1 GM VIAL) IVPB ONE (03:31)
[2017-05-18] MEDS ORDERED: MAGNESIUM SULF 50% (8.12 MEQ/2 ML-1 GM VIAL) ONE (03:33)
[2017-05-18] MEDS ORDERED: methylPREDNISolone NA SUCC 125 MG/2 ML VIAL ONE ×2 (03:34→15:10)
[2017-05-18 03:47] LABS: ALBUMIN 2.8 g/dl (3.4-5.0); ANION GAP 8 (8-16); BILIRUBIN,TOTAL 0.5 mg/dL (0.2-1.0); BLOOD UREA NITROGEN 18 mg/dL (7-18); CALCIUM 8.2 mg/dL (8.5-10.1); CHLORIDE 105 mmol/L (98-107); CO2 30 mmol/L (21-32); CREATININE 1.1 mg/dL (0.55-1.02); GLUCOSE,RANDOM 183 mg/dL (74-106); SGPT/ALT 54 U/L (12-78); SODIUM 143 mmol/L (136-145)
[2017-05-18 03:48] LABS: ALK PHOS 174 U/L (45-117)
[2017-05-18 03:49] LABS: POTASSIUM 4.4 mmol/L (3.5-5.1); SGOT/AST 79 U/L (15-37)
[2017-05-18 04:00] LABS: N-TERMINAL BNP 883.06 pg/ml (5-125)
[2017-05-18 04:01] LABS: MAGNESIUM 1.8 mg/dL (1.8-2.4)
[2017-05-18] MEDS ORDERED: FUROSEMIDE 40 MG/4 ML INJECTABLE VIAL IVPUSH ONE (04:13)
[2017-05-18] MEDS ORDERED: LORazepam 0.5 MG TABLET PO ONE (04:20)
[2017-05-18] MEDS ORDERED: LORazepam 0.5 MG TABLET ONE ×2 (04:21→22:32)
[2017-05-18] MEDS ORDERED: ALBUTEROL SO4 0.083% IH SOL 2.5 MG/3 ML VIAL.NEB. NEB PRN (04:56)
[2017-05-18 05:00] LABS: ARTERIAL BLD GAS O2 SATURATION 93.9 % (90-98.9); ARTERIAL BLOOD GAS BASE EXCESS 3.5 meq/l (-2-2); ARTERIAL BLOOD GAS PO2 72.3 mmHg (80-100); ARTERIAL BLOOD GAS pH 7.29 (7.35-7.45); CARBOXYHEMOGLOBIN 3.6 gm% (0.5-2.0)
[2017-05-18 05:06] LABS: ALLENS TEST POSITIVE
[2017-05-18 05:11] LABS: ARTERIAL BLOOD GAS PCO2 65.8 mmHg (35-45)
--- NOTE | 2017-05-18 05:11 | HP ---
CHIEF COMPLAINT: Shortness of Breath PCP: HISTORY OF PRESENT ILLNESS: 61 F with pmhx. of HTN, HLD, DM, CHF, COPD (5L 02), [place] C, CKD, Schizophrenia, and BPD who presents with shortness of breath. Pt. was admitted 05/16 for hypercapnic respiratory failure, but she signed out against medical advice. Pt. denied any chest pain, pressure or shortness of breath, but did not want to expand on her symptoms. She denies any fever or chills. ER course was notable for: (1) Congestion on CXR (2) S/P Lasix 40 IV in ED (3) Nebs/Mg2+ administered in ED Recent Travel: NO PAST MEDICAL HISTORY: As Above PAST SURGICAL HISTORY: Hysterectomy Social History: Smoking: Current smoker- 8 cigs/day Alcohol: No Drugs: NO Family History: Refused Allergies ibuprofen [From Motrin IB] Allergy (Verified 05/18/17 02:42) metformin Allergy (Verified 05/18/17 02:42) Penicillins Allergy (Verified 05/18/17 02:42) HOME MEDICATIONS: Home Medications Medication Instructions Recorded Acetaminophen [Tylenol .Regular 650 mg PO Q8H PRN tablet 05/10/17 Strength -] Albuterol Sulfate Inhaler - 2 inh PO Q4H PRN #1 inh 05/10/17 [Ventolin HFA Inhaler -] Amlodipine Besylate [Norvasc -] 10 mg PO DAILY #30 tablet 05/10/17 Ascorbic Acid [Vitamin C -] 500 mg PO DAILY tablet 05/10/17 Aspirin Coated [Ecotrin -] 81 mg PO DAILY #30 tablet.ec 05/10/17 Atorvastatin Ca [Lipitor] 40 mg PO DAILY #30 tablet 05/10/17 Carvedilol [Coreg -] 12.5 mg PO BID #30 tablet 05/10/17 Escitalopram Oxalate [Lexapro -] 20 mg PO DAILY #30 tablet 05/10/17 Ferrous Sulfate [Feosol] 325 mg PO DAILY #30 ud 05/10/17 Furosemide [Lasix -] 40 mg PO BID@0600,1400 tablet 05/10/17 Hydralazine HCl 25 mg PO TID #30 tablet 05/10/17 Lisinopril [Prinivil] 5 mg PO DAILY #30 tablet 05/10/17 Multivitamins [Multivit ([facility] 1 tab PO DAILY tab 05/10/17 Formulary)] Nicotine Patch [Nicoderm Patch -] 14 mg TD DAILY patch 05/10/17 Olanzapine [Zyprexa -] 10 mg PO BID #30 tablet 05/10/17 Sitagliptin Phosphate [Januvia -] 50 mg PO DAILY@0700 tablet 05/10/17 REVIEW OF SYSTEMS CONSTITUTIONAL: Absent: fever, chills, diaphoresis, generalized weakness, malaise, loss of appetite, weight change HEENT: Absent: rhinorrhea, nasal congestion, throat pain, throat swelling, difficulty swallowing, mouth swelling, ear pain, eye pain, visual changes CARDIOVASCULAR: Absent: chest pain, syncope, palpitations, irregular heart rate, lightheadedness , peripheral edema RESPIRATORY: Absent: cough, + shortness of breath, NO dyspnea with exertion, orthopnea, + wheezing, stridor, hemoptysis GASTROINTESTINAL: Absent: abdominal pain, abdominal distension, nausea, vomiting, diarrhea, constipation, melena, hematochezia GENITOURINARY: Absent: dysuria, frequency, urgency, hesitancy, hematuria, flank pain, genital pain MUSCULOSKELETAL: Absent: myalgia, arthralgia, joint swelling, back pain, neck pain SKIN: Absent: rash, itching, pallor HEMATOLOGIC/IMMUNOLOGIC: Absent: easy bleeding, easy bruising, lymphadenopathy, frequent infections ENDOCRINE: Absent: unexplained weight gain, unexplained weight loss, heat intolerance, cold intolerance NEUROLOGIC: Absent: headache, focal weakness or paresthesias, dizziness, unsteady gait, seizure, mental status changes, bladder or bowel incontinence PSYCHIATRIC: Absent: anxiety, depression, suicidal or homicidal ideation, hallucinations. PHYSICAL EXAMINATION Vital Signs - 24 hr 05/18/17 05/18/17 02:42 03:10 Temperature 97.9 F 98.4 F Pulse Rate 80 Respiratory 24 Rate Blood Pressure 153/88 O2 Sat by Pulse 92 L Oximetry (%) GENERAL: Morbidly Obese female Awake, alert, and fully oriented, in no acute distress. Able to speak full sentences HEAD: Normal with no signs of trauma. EYES: Pupils equal, round and reactive to light, extraocular movements intact, sclera anicteric, conjunctiva clear. No lid lag. EARS, NOSE, THROAT: Ears normal, nares patent, oropharynx clear without exudates. Moist mucous membranes. NECK: Normal range of motion, supple without lymphadenopathy, JVD, or masses. LUNGS: Breath sounds decreased at bases, Mild Expiratory wheezes, and no crackles. No accessory muscle use. HEART: Regular rate and rhythm, normal S1 and S2 without murmur, rub or gallop. ABDOMEN: Soft, nontender, not distended, normoactive bowel sounds, no guarding, no rebound, no masses. No hepatomegaly or splenomegaly. MUSCULOSKELETAL: Normal range of motion at all joints. No bony deformities or tenderness. No CVA tenderness. UPPER EXTREMITIES: 2+ pulses, warm, well-perfused. No cyanosis. No clubbing. No peripheral edema. LOWER EXTREMITIES: Warm, well-perfused. No calf tenderness. +2 Pitting edema bilateral and equal, refused feet exam. NEUROLOGICAL: Cranial nerves II-XII intact. Normal speech. Normal gait. PSYCHIATRIC: Cooperative. Good eye contact. Appropriate mood and affect. SKIN: Warm, dry, normal turgor, no rashes or lesions noted, normal capillary refill. Laboratory Results - last 24 hr 05/18/17 05/18/17 05/18/17 03:00 03:00 03:00 WBC 5.4 RBC 3.46 L Hgb 8.6 L Hct 28.8 L MCV 83.1 MCH 24.7 L MCHC 29.8 L RDW 21.4 H Plt Count 275 MPV 7.1 L Neutrophils % 69.3 Lymphocytes % 17.4 D Monocytes % 12.5 H D Eosinophils % 0.3 D Basophils % 0.5 PT with INR 11.30 INR 1.00 Anticoagulation Therapy O2 Delivery Device Oxygen Flow Rate Vent Mode Vent Rate Mechanical Rate Pressure Support Vent Sodium 143 Potassium 4.4 Chloride 105 Carbon Dioxide 30 Anion Gap 8 BUN 18 Creatinine 1.1 H Creat Clearance w eGFR 50.33 Random Glucose 183 H Calcium 8.2 L Magnesium Total Bilirubin 0.5 AST 79 H ALT 54 Alkaline Phosphatase 174 H B-Natriuretic Peptide Total Protein 7.0 Albumin 2.8 L 05/18/17 05/18/17 03:00 04:49 WBC RBC Hgb Hct MCV MCH MCHC RDW Plt Count MPV Neutrophils % Lymphocytes % Monocytes % Eosinophils % Basophils % PT with INR INR Anticoagulation Therapy No Result Required. O2 Delivery Device No Result Required. Oxygen Flow Rate No Result Required. Vent Mode No Result Required. Vent Rate No Result Required. Mechanical Rate No Result Required. Pressure Support Vent No Result Required. Sodium Potassium Chloride Carbon Dioxide Anion Gap BUN Creatinine Creat Clearance w eGFR Random Glucose Calcium Magnesium 1.8 Total Bilirubin AST ALT Alkaline Phosphatase B-Natriuretic Peptide 883.06 H Total Protein Albumin EKG: NSR 76 QtC 432, Q waves septal leads ASSESSMENT/PLAN: 61 year old woman with history of HTN, COPD on home 02 (5L),hyperlipidemia, type 2 DM, chronic diastolic heart failure, chronic hypoxic and hypercapnic respiratory failure, stage 3 CKD, anemia, schizophrenia, bipolar disorder, morbid obesity, possible DIRK with Shortness of Breath, being admitted for acute on chronic diastlic heart failure and acute exacerbation of COPD. 1.) Acute Hypercapnic Respiratory Failure - ABG, Repeat - BIPAP - Lasix - NPO on BIPAP 2.) Acute on Chronic Diastolic HF - Lasix IV - Daily Weights - Strict I/O - NA/ Fluid Restrict - Trend Trop/EKG - Echo 04/09- EF 75%, MOD. 3.) Acute Exacerbation of COPD - On 5L 02 at home - Flu Swab - Duonebs ATC/PRN - Pulmonary for Med Optimization - KEEP 02>90 - Solu-Medrol 4.) HTN - C/W Home meds (Norvasc, Hydralazine, Lisinopril, Lasix) 5.) Schizophrenia/Bipolar Do - C/W Zyprexa & Lexapro 6.) Stg. 3 CKD - CR stable - Trend 7.) Microcytic Anemia - C/W Irons supplementation 8.) ?DIRK 9.) Current Smoker - Nicotine Patch - Advised smoking Cessation 10.) DMII - FS - RAISS 11.) Dvt Ppx - Heparin [address] in MED-TELE Visit type - Emergency Visit Emergency Visit: Yes ED Registration Date: 05/18/17 Care time: The patient presented to the Emergency Department on the above date and was hospitalized for further evaluation of their emergent condition. - New Patient This patient is new to me today: Yes Date on this admission: 05/21/17 - Critical Care Critical Care patient: No
[2017-05-18] MEDS: FUROSEMIDE 40 MG/4 ML INJECTABLE VIAL IVPUSH SCH ×2 (06:53→17:59)
[2017-05-18] MEDS: hydrALAZINE HCL 25 MG TABLET (FP) PO SCH ×3 (06:53→22:39)
[2017-05-18] MEDS ORDERED: hydrALAZINE HCL 25 MG TABLET (FP) ONE (06:55)
[2017-05-18] MEDS ORDERED: FUROSEMIDE 40 MG/4 ML INJECTABLE VIAL ONE (06:55)
[2017-05-18] MEDS ORDERED: ALBUTEROL SO4 2.5/IPRATROPIUM 0.5 INH SOL 3 ML VIAL.NEB. NEB ONE ×3 (08:15→22:33)
[2017-05-18] MEDS: ALBUTEROL SO4 2.5/IPRATROPIUM 0.5 INH SOL 3 ML VIAL.NEB. NEB SCH ×4 (08:15→22:39)
[2017-05-18 09:09] VITALS: TEMP 98
[2017-05-18] MEDS: CARVEDILOL 12.5 MG TABLET (FP) PO SCH ×2 (09:12→22:39)
[2017-05-18] MEDS: OLANZapine 10 MG TABLET PO SCH ×2 (09:14→22:40)
[2017-05-18] MEDS ORDERED: MULTIVITAMINS (DAILY MVI) TABLET (FP) PO SCH (10:00)
[2017-05-18] MEDS ORDERED: ASPIRIN COATED 81 MG TABLET.EC PO SCH (10:00)
[2017-05-18] MEDS ORDERED: ASCORBIC ACID 500 MG TABLET (FP) PO SCH (10:00)
[2017-05-18] MEDS ORDERED: amLODIPine BESYLATE 10 MG TABLET (FP) PO SCH (10:00)
[2017-05-18] MEDS ORDERED: FERROUS SO4 325 MG TABLET (FP) PO SCH (10:00)
[2017-05-18] MEDS ORDERED: LISINOPRIL 5 MG TABLET (FP) PO SCH (10:00)
[2017-05-18] MEDS ORDERED: ESCITALOPRAM OXALATE 20 MG TABLET (FP) PO SCH (10:00)
[2017-05-18] MEDS ORDERED: NICOTINE 14 MG/24 HOURS TOPICAL PATCH TD SCH (10:00)
--- NOTE | 2017-05-18 10:30 | EKG ---
Test Reason : Blood Pressure : / mmHG Vent. Rate : 076 BPM Atrial Rate : 076 BPM P-R Int : 168 ms QRS Dur : 076 ms QT Int : 384 ms P-R-T Axes : 064 019 048 degrees QTc Int : 432 ms NORMAL SINUS RHYTHM CANNOT RULE OUT ANTERIOR INFARCT (CITED ON OR BEFORE 16-MAY-2017) ABNORMAL ECG WHEN COMPARED WITH ECG OF 16-MAY-2017 07:56, NO SIGNIFICANT CHANGE WAS FOUND Confirmed by ARABELLA WEINER, SRIKANTH ([id number]) on 05/18/2017 10:29:39 AM Referred By: Confirmed By:SRKIANTH BELL MD
--- NOTE | 2017-05-18 12:59 | EKG ---
Test Reason : Blood Pressure : / mmHG Vent. Rate : 078 BPM Atrial Rate : 078 BPM P-R Int : 178 ms QRS Dur : 078 ms QT Int : 396 ms P-R-T Axes : 065 023 055 degrees QTc Int : 451 ms NORMAL SINUS RHYTHM WITH SINUS ARRHYTHMIA CANNOT RULE OUT ANTERIOR INFARCT (CITED ON OR BEFORE 16-MAY-2017) ABNORMAL ECG WHEN COMPARED WITH ECG OF 18-MAY-2017 03:14, NO SIGNIFICANT CHANGE WAS FOUND Confirmed by SRIKANTH BELL MD ([id number]) on 05/18/2017 12:58:58 PM Referred By: Confirmed By:SRIKANTH BELL MD
[2017-05-18] MEDS ORDERED: LORazepam 1 MG TABLET PO PRN (13:25)
--- NOTE | 2017-05-18 13:27 | PN ---
Teaching Attending Note Name of Resident: Laurie Sunshine ATTENDING PHYSICIAN STATEMENT I saw and evaluated the patient. I reviewed the resident's note and discussed the case with the resident. I agree with the resident's findings and plan as documented. SUBJECTIVE:very upset she wants to eat. threatening to sign out AMA if she does not eat. states she has been compliant with her medications. still having difficulty breathing. denies CP, fever, chills, N/V/C/D OBJECTIVE: Last Vital Signs Temp Pulse Resp BP Pulse Ox 98.0 F 93 H 20 156/95 100 05/18/17 09:09 05/18/17 12:35 05/18/17 12:35 05/18/17 12:35 05/18/17 13:00 General NAD CV S1 S2 tachy Lungs decrased breath sounds B/L bases, poor air entry Extremities 2+ pitting edema ASSESSMENT AND PLAN: 61 yo F with PMHx of morbid obesity, Diastolic HF, COPD, suspected DIRK, NIDDM, HTN, HLD, schizophrenia/bipolar disorder, frequent recent admissions with hypoxic/hypercapnic respiratory failure presents with similar symptoms 1. Acute hypoxic/hypercapnic respiratory failure- due to diastolic CHF exacerbation and possible acute on chronic COPD exacerbation. currently 100% on bipap. will attempt to titrate down so pt can eat as its contraindicated to eat while on bipap. on lasix 40mg IV BID. Medrol 60mg BID. monitor electrolytes. strict I&O. daily weights. titrate down oxygen as tolerated. pulmonary on board. Flu negative 2. Iron def anemia- Hgb at baseline. no signs of bleeding. has refused colonoscopy in the past. cont iron supplements 3. Continuous nicotine dependence- continues to smoke tobacco after multiple conversations of danger of smoking. informed her she can not leave the floor to go outside to smoke during hospital stay. verbalized understanding and agrees. Cont nicotine patch 4. Hypomagnesmeia- resolved 5. DM- steroid induced. controlled on januvia. cont for now. iss,bgm 6. HTN- controlled. cont lisinopril/norvasc/hydralazine 7. Schizophrenia- zyprexa. 8. CKD- at baseline 9. DVT ppx- hep sq 10. Pt was evaluated by psych on recent admission and determined to be competent. informed her risks of not obtaining necessary treatment can lead to . verbalized understanding
--- NOTE | 2017-05-18 13:48 | PN ---
Physical Exam: SUBJECTIVE: Patient seen and examined. Was uncooperative this morning. Limited in answering questions. Patient offers no new complaints, says her breathing is better than last night. OBJECTIVE: Vital Signs Period Temp Pulse Resp BP Sys/Osei Pulse Ox Last 24 Hr 97.9 F-98.4 F 80-93 16-24 148-171/88-105 92-100 GENERAL: Morbidly obese. On BiPap. In no acute distress, a/o x 3 HEAD: Normal with no signs of trauma. EYES: PERRL, sclera anicteric ENT: oropharynx clear without exudates, dry mucous membranes NECK: supple. LUNGS: scattered wheezes, decreased breath sounds b/l at bases HEART: Regular rate and rhythm, S1, S2 without murmur, rub or gallop. ABDOMEN: Soft, nontender, nondistended, normoactive bowel sounds EXTREMITIES: 2+ pulses, 2+ Lower extremity edema b/l SKIN: Warm, dry, normal turgor, no rashes or lesions noted Laboratory Results - last 24 hr 05/18/17 05/18/17 05/18/17 03:00 03:00 03:00 WBC 5.4 RBC 3.46 L Hgb 8.6 L Hct 28.8 L MCV 83.1 MCH 24.7 L MCHC 29.8 L RDW 21.4 H Plt Count 275 MPV 7.1 L Neutrophils % 69.3 Lymphocytes % 17.4 D Monocytes % 12.5 H D Eosinophils % 0.3 D Basophils % 0.5 PT with INR 11.30 INR 1.00 Anticoagulation Therapy Puncture Site ABG pH ABG pCO2 at Pt Temp ABG pO2 at Pt Temp ABG HCO3 ABG O2 Sat (Measured) ABG O2 Content ABG Base Excess Good Test Carboxyhemoglobin Methemoglobin O2 Delivery Device Oxygen Flow Rate Vent Mode Vent Rate Mechanical Rate Pressure Support Vent Sodium 143 Potassium 4.4 Chloride 105 Carbon Dioxide 30 Anion Gap 8 BUN 18 Creatinine 1.1 H Creat Clearance w eGFR 50.33 Random Glucose 183 H Calcium 8.2 L Magnesium Total Bilirubin 0.5 AST 79 H ALT 54 Alkaline Phosphatase 174 H Creatine Kinase Troponin I B-Natriuretic Peptide Total Protein 7.0 Albumin 2.8 L 05/18/17 05/18/17 05/18/17 03:00 04:00 04:49 WBC RBC Hgb Hct MCV MCH MCHC RDW Plt Count MPV Neutrophils % Lymphocytes % Monocytes % Eosinophils % Basophils % PT with INR INR Anticoagulation Therapy No Result Required. Puncture Site Right radial ABG pH 7.29 L ABG pCO2 at Pt Temp 65.8 H* ABG pO2 at Pt Temp 72.3 L ABG HCO3 30.5 H ABG O2 Sat (Measured) 93.9 ABG O2 Content 11.3 L ABG Base Excess 3.5 H Good Test Positive Carboxyhemoglobin 3.6 H Methemoglobin 0.6 O2 Delivery Device Bipap Oxygen Flow Rate 40% Vent Mode S/t Vent Rate 14 Mechanical Rate No Result Required. Pressure Support Vent 15/5 Sodium Potassium Chloride Carbon Dioxide Anion Gap BUN Creatinine Creat Clearance w eGFR Random Glucose Calcium Magnesium 1.8 Total Bilirubin AST ALT Alkaline Phosphatase Creatine Kinase 39 Troponin I < 0.02 B-Natriuretic Peptide 883.06 H Total Protein Albumin 05/18/17 05/18/17 04:58 11:05 WBC RBC Hgb Hct MCV MCH MCHC RDW Plt Count MPV Neutrophils % Lymphocytes % Monocytes % Eosinophils % Basophils % PT with INR INR Anticoagulation Therapy Puncture Site ABG pH ABG pCO2 at Pt Temp ABG pO2 at Pt Temp ABG HCO3 ABG O2 Sat (Measured) ABG O2 Content ABG Base Excess Good Test Carboxyhemoglobin Methemoglobin O2 Delivery Device Oxygen Flow Rate Vent Mode Vent Rate Mechanical Rate Pressure Support Vent Sodium Potassium Chloride Carbon Dioxide Anion Gap BUN Creatinine Creat Clearance w eGFR Random Glucose Calcium Magnesium Total Bilirubin AST ALT Alkaline Phosphatase Creatine Kinase 26 Troponin I Cancelled < 0.02 B-Natriuretic Peptide Total Protein Albumin Active Medications Generic Name Dose Route Start Last Admin Trade Name Freq PRN Reason Stop Dose Admin Albuterol Sulfate 1 amp 05/18/17 04:56 Ventolin 0.083% Nebulizer Soln - NEB RTID PRN SHORT OF BREATH/WHEEZING Albuterol/Ipratropium 1 amp 05/18/17 08:00 05/18/17 11:57 Duoneb - NEB 1 amp RQID JOSLYN Administration Amlodipine Besylate 10 mg 05/18/17 10:00 05/18/17 09:13 Norvasc - PO 10 mg DAILY JOSLYN Administration Ascorbic Acid 500 mg 05/18/17 10:00 05/18/17 09:13 Vitamin C - PO 500 mg DAILY JOSLYN Administration Aspirin 81 mg 05/18/17 10:00 05/18/17 09:12 Ecotrin - PO 81 mg DAILY [facility] Administration Atorvastatin Calcium 40 mg 05/18/17 22:00 Lipitor - PO HS [facility] Carvedilol 12.5 mg 05/18/17 10:00 05/18/17 09:12 Coreg - PO 12.5 mg BID [facility] Administration Escitalopram Oxalate 20 mg 05/18/17 10:00 05/18/17 09:12 Lexapro - PO 20 mg DAILY JOSLYN Administration Ferrous Sulfate 325 mg 05/18/17 10:00 05/18/17 09:12 Feosol - PO 325 mg DAILY [facility] Administration Furosemide 40 mg 05/18/17 06:00 05/18/17 06:53 Lasix Injection - IVPUSH 40 mg BID@0600,1800 [facility] Administration Hydralazine HCl 25 mg 05/18/17 06:00 05/18/17 13:05 Apresoline - PO 25 mg TID [facility] Administration Lisinopril 5 mg 05/18/17 10:00 05/18/17 09:13 Prinivil PO 5 mg DAILY [facility] Administration Lorazepam 1 mg 05/18/17 13:25 Ativan - PO BID PRN ANXIETY Methylprednisolone Sodium Succinate 60 mg 05/18/17 15:00 Solu-Medrol - IVPUSH Q12H [facility] Multivitamins/Minerals/Vitamin C 1 tab 05/18/17 10:00 05/18/17 09:13 Tab-A-Vit - PO 1 tab DAILY [facility] Administration Nicotine 14 mg 05/18/17 10:00 05/18/17 09:12 Nicoderm Patch - TD 14 mg DAILY [facility] Administration Olanzapine 10 mg 05/18/17 10:00 05/18/17 09:14 Zyprexa - PO 10 mg BID [facility] Administration Sitagliptin Phosphate 50 mg 05/19/17 07:00 Januvia - PO DAILY@0700 [facility] ASSESSMENT/PLAN: 61yo noncompliant F with history of diastolic CHF, COPD, DM, morbid obesity, HTN , HLD, schizophrenia/bipolar disorder with frequent admissions for hypoxic respiratory failure admitted for acute on chronic CHF exacerbation. #Acute hypoxic hypercapnic respiratory distress -2/2 dCHF exacerbation and possible acute on chronic COPD exacerbation. -On 100% BiPap, will transition to 2 L NC -Titrate down oxygen as tolerated -Cont. IV Lasix 40mg BID -Cont Solu-medrol 60mg BID -Pulmonology on board -Last Echo 03/27/17: LV normal size and function -Daily weights; strict I&O's -Continue duonebs scheduled; albuterol q4h PRN #Acute normocytic anemia -Hgb at baseline -hx of transfusions previous admissions -No signs of bleeding -Monitor CBC -Previously refused colonoscopy in prior admissions -Continue Iron supplementation #Nictotine dependence -went outside to smoke last admission -nicotine patch cont'd -discussed risks and complications of smoking # HTN -Currently 156/95 -Continue home medication -Norvasc 5mg qdaily -Coreg 12.5 mg PO BID -Lisinopril 5mg qdaily -Hydralazine 25 TID #Schizoprenia history -Not suicidal currently -Lexapro 20mg qDaily -Zyprexa 10mg PO BID #Iron deficiency anemia -Cont Iron supplementation -Monitor signs of constipation #CKD -FU am Labs -Monitor BMP #DM -ISS -Januvia 50mg at home now held -BGM -Diet counselling #FEN: None due to fluid overload WNL Diabetic and sodium controlled #PPX: Heparin SQ TID Visit type - Emergency Visit Emergency Visit: Yes ED Registration Date: 05/18/17 Care time: The patient presented to the Emergency Department on the above date and was hospitalized for further evaluation of their emergent condition. - New Patient This patient is new to me today: Yes Date on this admission: 05/18/17 - Critical Care Critical Care patient: No
--- NOTE | 2017-05-18 15:06 | CON.PULM ---
Consult Consult Specialty:: PULM/CCM Referred by:: CHRISTINA Reason for Consultation:: SOB - History of Present Illness Chief Complaint: SOB History of Present Illness: 61 F, past medical history of HTN, HLD, DM, CHF, COPD due to previous and active smoking (apparently on 5L NC 02), Hep C, CKD, Schizophrenia, and likely OSAS/OHS. Admitted via the ER due to SOB. SOB described as progressive over several days. She was initially admitted on 05/16 an left AMA. Readmitted and now seen in the ER due to acute on chronic hypercapneic failure. Currently she is on NC O2 with a saturation of 90%. She reports that she has to leave today. No apparent travel history or sick contacts. CXR: Bilateral pulmonary vascular congestion and pleural effusions. - History Source History Provided By: Patient, Medical Record Limitations to Obtaining History: Poor Historian - Past Medical History FIELD OPERATOR: Yes: TIA Cardio/Vascular: Yes: HTN Pulmonary: Yes: COPD Renal/: Yes: Renal Inusuff Infectious Disease: Yes: Other (HCV) Psych: Yes: Bipolar, Schizophrenia Endocrine: Yes: Diabetes Mellitus - Past Surgical History Past Surgical History: Yes: Hysterectomy - Alcohol/Substance Use Hx Alcohol Use: No History of Substance Use: reports: None - Smoking History Smoking history: Never smoked Have you smoked in the past 12 months: No Aproximately how many cigarettes per day: 20 - Social History Usual Living Arrangement: Alone ADL: Support Services History of Recent Travel: No Home Medications - Allergies Allergies/Adverse Reactions: Allergies Allergy/AdvReac Type Severity Reaction Status Date / Time ibuprofen [From Motrin IB] Allergy Verified 05/18/17 02:42 metformin Allergy Verified 05/18/17 02:42 Penicillins Allergy Verified 05/18/17 02:42 - Home Medications Home Medications: Ambulatory Orders Acetaminophen [Tylenol .Regular Strength -] 650 mg PO Q8H PRN tablet 05/10/17 Albuterol Sulfate Inhaler - [Ventolin HFA Inhaler -] 2 inh PO Q4H PRN #1 inh Amlodipine Besylate [Norvasc -] 10 mg PO DAILY #30 tablet 05/10/17 Ascorbic Acid [Vitamin C -] 500 mg PO DAILY tablet 05/10/17 Aspirin Coated [Ecotrin -] 81 mg PO DAILY #30 tablet.ec 05/10/17 Atorvastatin Ca [Lipitor] 40 mg PO DAILY #30 tablet 05/10/17 Carvedilol [Coreg -] 12.5 mg PO BID #30 tablet 05/10/17 Escitalopram Oxalate [Lexapro -] 20 mg PO DAILY #30 tablet 05/10/17 Ferrous Sulfate [Feosol] 325 mg PO DAILY #30 ud 05/10/17 Furosemide [Lasix -] 40 mg PO BID@0600,1400 tablet 05/10/17 Hydralazine HCl 25 mg PO TID #30 tablet 05/10/17 Lisinopril [Prinivil] 5 mg PO DAILY #30 tablet 05/10/17 Multivitamins [Multivit ([facility] Formulary)] 1 tab PO DAILY tab 05/10/17 Nicotine Patch [Nicoderm Patch -] 14 mg TD DAILY patch 05/10/17 Olanzapine [Zyprexa -] 10 mg PO BID #30 tablet 05/10/17 Sitagliptin Phosphate [Januvia -] 50 mg PO DAILY@0700 tablet 05/10/17 Family Disease History - Family Disease History Family Disease History: Heart Disease: Father ( in 40s) Review of Systems - Review of Systems Constitutional: reports: Malaise, Weakness. denies: Chills, Fever, Loss of Appetite, Night Sweats, Unintentional Wgt. Loss Eyes: reports: No Symptoms HENT: reports: No Symptoms Neck: reports: No Symptoms Cardiovascular: reports: Edema. denies: Chest Pain, Palpitations, Shortness of Breath Respiratory: reports: Cough, Orthopnea, Snoring, SOB, SOB on Exertion, Wheezing. denies: Hemoptysis Gastrointestinal: reports: No Symptoms Genitourinary: reports: No Symptoms Breasts: reports: No Symptoms Reported Musculoskeletal: reports: No Symptoms Integumentary: reports: No Symptoms Neurological: reports: No Symptoms Endocrine: reports: No Symptoms Hematology/Lymphatic: reports: No Symptoms Psychiatric: reports: No Symptoms Physical Exam Vital Sings: Vital Signs Temperature 98.0 F 05/18/17 09:09 Pulse Rate 93 H 05/18/17 12:35 Respiratory Rate 20 05/18/17 12:35 Blood Pressure 156/95 05/18/17 12:35 O2 Sat by Pulse Oximetry (%) 100 05/18/17 13:00 Constitutional: Yes: No Distress, Anxious, Obese Eyes: Yes: Conjunctiva Clear, EOM Intact HENT: Yes: Atraumatic, Normocephalic Neck: Yes: Supple, Trachea Midline Cardiovascular: Yes: Regular Rate and Rhythm Respiratory: Yes: Cough, Diminished, On Nasal O2, Rhonchi, SOB, SOB on Exertion , Tachypnea, Wheezes. No: Accessory Muscle Use, Rales, Stridor ...Inspection: Yes: WNL ...Clubbing: No Gastrointestinal: Yes: Normal Bowel Sounds, Soft, Abdomen, Obese Musculoskeletal: Yes: WNL Extremities: Yes: WNL Edema: Yes Peripheral Pulses WNL: Yes Integumentary: Yes: WNL Neurological: Yes: WNL, Alert, Oriented ...Motor Strength: WNL Psychiatric: Yes: WNL, Alert, Oriented Labs: CBC, BMP 05/18/17 03:00 05/18/17 03:00 ABG Results ABG pH 7.29 (7.35-7.45) L 05/18/17 04:49 ABG pCO2 at Pt Temp 65.8 mmHg (35-45) H* 05/18/17 04:49 ABG pO2 at Pt Temp 72.3 mmHg (80-100) L 05/18/17 04:49 ABG HCO3 30.5 meq/L (22-26) H 05/18/17 04:49 ABG O2 Sat (Measured) 93.9 % (90-98.9) 05/18/17 04:49 ABG O2 Content 11.3 % vol (15-22) L 05/18/17 04:49 ABG Base Excess 3.5 meq/l (-2-2) H 05/18/17 04:49 Imaging - Results Chest X-ray: Report Reviewed, Image Reviewed Problem List - Problems (1) Acute on chronic diastolic (congestive) heart failure Code(s): I50.33 - ACUTE ON CHRONIC DIASTOLIC (CONGESTIVE) HEART FAILURE (2) COPD exacerbation Code(s): J44.1 - CHRONIC OBSTRUCTIVE PULMONARY DISEASE W (ACUTE) EXACERBATION (3) Acute respiratory failure with hypoxia and hypercapnia Code(s): J96.01 - ACUTE RESPIRATORY FAILURE WITH HYPOXIA; J96.02 - ACUTE RESPIRATORY FAILURE WITH HYPERCAPNIA (4) Leg edema Code(s): R60.0 - LOCALIZED EDEMA (5) Medication noncompliance due to cognitive impairment Code(s): Z91.14 - PATIENT'S OTHER NONCOMPLIANCE WITH MEDICATION REGIMEN (6) Anxiety Code(s): F41.9 - ANXIETY DISORDER, UNSPECIFIED (7) Bipolar disorder Code(s): F31.9 - BIPOLAR DISORDER, UNSPECIFIED Qualifiers: Active/Remission status: remission status unspecified Qualified Code(s): F31.9 - Bipolar disorder, unspecified (8) CHF (congestive heart failure) Code(s): I50.9 - HEART FAILURE, UNSPECIFIED (9) Chronic kidney insufficiency Code(s): N18.9 - CHRONIC KIDNEY DISEASE, UNSPECIFIED Qualifiers: Chronic kidney disease stage: unspecified stage Qualified Code(s): N18.9 - Chronic kidney disease, unspecified (10) Chronic pain Code(s): G89.29 - OTHER CHRONIC PAIN Qualifiers: Chronic pain type: other chronic pain Qualified Code(s): G89.29 - Other chronic pain (11) Diabetes mellitus Code(s): E11.9 - TYPE 2 DIABETES MELLITUS WITHOUT COMPLICATIONS Qualifiers: Diabetes mellitus type: type 2 Diabetes mellitus complication status: without complication Diabetes mellitus terminal operator insulin use: without terminal operator use Qualified Code(s): E11.9 - Type 2 diabetes mellitus without complications (12) Hypertension Code(s): I10 - ESSENTIAL (PRIMARY) HYPERTENSION Qualifiers: Hypertension type: essential hypertension Qualified Code(s): I10 - Essential (primary) hypertension (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 Dr Garcia
[2017-05-18] MEDS: methylPREDNISolone NA SUCC 125 MG/2 ML VIAL IVPUSH SCH (15:12)
[2017-05-18] MEDS ORDERED: ATORVASTATIN CA 40 MG TABLET (FP) PO SCH (22:00)
[2017-05-19] MEDS: methylPREDNISolone NA SUCC 125 MG/2 ML VIAL IVPUSH SCH (03:37)
[2017-05-19 06:43] VITALS: BP 147/89; PULSE 78
[2017-05-19] MEDS ORDERED: sitaGLIPtin PHOSPHATE 50 MG TABLET PO SCH (07:00)
[2017-05-19] MEDS ORDERED: FUROSEMIDE 40 MG/4 ML INJECTABLE VIAL ONE (07:04)
[2017-05-19] MEDS: FUROSEMIDE 40 MG/4 ML INJECTABLE VIAL IVPUSH SCH (07:20)
[2017-05-19] MEDS: hydrALAZINE HCL 25 MG TABLET (FP) PO SCH (07:20)
[2017-05-19 07:35] LABS: BASO % 0.4 % (0-2.0); HEMOGLOBIN 9.6 GM/dL (10.7-15.3); LYMPH % 14.2 % (8-40); MCH 24.5 pg (25.7-33.7); MCHC 30.1 g/dl (32.0-36.0); MEAN CELL VOLUME 81.4 fl (80-96); MEAN PLT VOLUME 7.3 fl (7.5-11.1); MONO % 8.7 % (3.8-10.2); NEUT % 76.7 % (42.8-82.8); PLATELET COUNT 277 K/MM3 (134-434); RBC 3.93 M/mm3 (3.60-5.2); RDW 21.1 % (11.6-15.6); WHITE BLOOD COUNT 3.6 K/mm3 (4.0-10.0)
[2017-05-19 08:02] LABS: ANION GAP 6 (8-16); BLOOD UREA NITROGEN 27 mg/dL (7-18); CALCIUM 8.7 mg/dL (8.5-10.1); CHLORIDE 100 mmol/L (98-107); CO2 34 mmol/L (21-32); SODIUM 140 mmol/L (136-145)
[2017-05-19 08:07] LABS: ALK PHOS 185 U/L (45-117); BILIRUBIN,TOTAL 0.4 mg/dL (0.2-1.0); CREATININE 1.2 mg/dL (0.55-1.02); SGOT/AST 31 U/L (15-37); SGPT/ALT 48 U/L (12-78); TOT PROT 7.7 g/dl (6.4-8.2)
[2017-05-19 08:08] LABS: GLUCOSE,RANDOM 301 mg/dL (74-106)
[2017-05-19] MEDS ORDERED: FUROSEMIDE 40 MG/4 ML INJECTABLE VIAL IVPUSH SCH (10:00)
--- NOTE | 2017-05-19 13:25 | PN ---
Teaching Attending Note Name of Resident: Laurie Sunshine ATTENDING PHYSICIAN STATEMENT pt signed out AMA this AM prior to my evaluation
--- NOTE | 2017-05-19 15:18 | DS ---
Physical Exam: SUBJECTIVE: Patient uncooperative. Demanded to leave home. Refused physical examination. Patient left AMA prior to my evaluation. OBJECTIVE: Vital Signs Period Temp Pulse Resp BP Sys/Osei Pulse Ox Last 24 Hr 78-94 16-22 147-153/89-91 87-99 PHYSICAL EXAM Patient uncooperative. Demanded to leave home. Refused physical examination. Patient left AMA prior to my evaluation. LABS Laboratory Results - last 24 hr 05/18/17 05/19/17 05/19/17 21:10 06:30 06:30 WBC 3.6 L D RBC 3.93 Hgb 9.6 L D Hct 32.0 L MCV 81.4 MCH 24.5 L MCHC 30.1 L RDW 21.1 H Plt Count 277 MPV 7.3 L Neutrophils % 76.7 Lymphocytes % 14.2 Monocytes % 8.7 Eosinophils % 0.0 D Basophils % 0.4 Sodium 140 Potassium 4.0 Chloride 100 Carbon Dioxide 34 H Anion Gap 6 L BUN 27 H Creatinine 1.2 H Creat Clearance w eGFR 45.52 POC Glucometer Random Glucose 301 H* Calcium 8.7 Magnesium 2.0 Total Bilirubin 0.4 AST 31 ALT 48 Alkaline Phosphatase 185 H Troponin I < 0.02 Total Protein 7.7 Albumin 3.0 L 05/19/17 07:11 WBC RBC Hgb Hct MCV MCH MCHC RDW Plt Count MPV Neutrophils % Lymphocytes % Monocytes % Eosinophils % Basophils % Sodium Potassium Chloride Carbon Dioxide Anion Gap BUN Creatinine Creat Clearance w eGFR POC Glucometer [phone] Random Glucose Calcium Magnesium Total Bilirubin AST ALT Alkaline Phosphatase Troponin I Total Protein Albumin HOSPITAL COURSE: Date of Admission:05/18/17 This is a 61 year old female, pmhx includes HTN, HLD, CHF, DM II, COPD, hepatitis C, CKD, schizophrenia/bipolar disorder and recurrent admissions, presented to the ED with worsening SOB. Patient was found to have Acute hypoxic hypercapnic respiratory distress. She was given lasix for fluid overload. Patient was also being managed with breathing treatments with bipap, Duonebs, abx and albuterol. Patient was being uncooperative overnight. Patient decided to leave AMA. Had full, long discussion with patient of risks of leaving which includes possible . Date of Discharge: 05/19/17 Minutes to complete discharge: 35 Discharge Summary Reason For Visit: CHRONIC OBSTRUCTIVE PULMONARY DISEASE/COPD/CHF Condition: Stable - Instructions Disposition: AGAINST MEDICAL ADVICE - Home Medications Comprehensive Discharge Medication List: Ambulatory Orders Acetaminophen [Tylenol .Regular Strength -] 650 mg PO Q8H PRN tablet 05/10/17 Albuterol Sulfate Inhaler - [Ventolin HFA Inhaler -] 2 inh PO Q4H PRN #1 inh Amlodipine Besylate [Norvasc -] 10 mg PO DAILY #30 tablet 05/10/17 Ascorbic Acid [Vitamin C -] 500 mg PO DAILY tablet 05/10/17 Aspirin Coated [Ecotrin -] 81 mg PO DAILY #30 tablet.ec 05/10/17 Atorvastatin Ca [Lipitor] 40 mg PO DAILY #30 tablet 05/10/17 Carvedilol [Coreg -] 12.5 mg PO BID #30 tablet 05/10/17 Escitalopram Oxalate [Lexapro -] 20 mg PO DAILY #30 tablet 05/10/17 Ferrous Sulfate [Feosol] 325 mg PO DAILY #30 ud 05/10/17 Furosemide [Lasix -] 40 mg PO BID@0600,1400 tablet 05/10/17 Hydralazine HCl 25 mg PO TID #30 tablet 05/10/17 Lisinopril [Prinivil] 5 mg PO DAILY #30 tablet 05/10/17 Multivitamins [Multivit ([facility] Formulary)] 1 tab PO DAILY tab 05/10/17 Nicotine Patch [Nicoderm Patch -] 14 mg TD DAILY patch 05/10/17 Olanzapine [Zyprexa -] 10 mg PO BID #30 tablet 05/10/17 Sitagliptin Phosphate [Januvia -] 50 mg PO DAILY@0700 tablet 05/10/17 This patient is new to me today: Yes Date on this admission: 05/19/17 Emergency Visit: Yes ED Registration Date: 05/18/17 Care time: The patient presented to the Emergency Department on the above date and was hospitalized for further evaluation of their emergent condition. Critical Care patient: No - Discharge Referral Referred to [facility] No
== END 2017-05-19 08:45 | disposition left against medical advice (07) | DRG 194 ==
LOC: JER 02:38 → JERBED 04:13 → UNDOADMIN 04:44
PROVIDERS: ADMIT Internal Medicine; ATTEND Internal Medicine
DX: I13.0 Hypertensive heart and chronic kidney disease with heart failure and stage 1 through stage 4 chronic kidney disease, or unspecified chronic kidney disease (principal); E11.22 Type 2 diabetes mellitus with diabetic chronic kidney disease; N18.3 Chronic kidney disease, stage 3 (moderate); I50.33 Acute on chronic diastolic (congestive) heart failure; F20.9 Schizophrenia, unspecified; F31.9 Bipolar disorder, unspecified; J44.1 Chronic obstructive pulmonary disease with (acute) exacerbation; D50.9 Iron deficiency anemia, unspecified; E83.42 Hypomagnesemia; J96.22 Acute and chronic respiratory failure with hypercapnia; J96.21 Acute and chronic respiratory failure with hypoxia
CPT/HCPCS: 36415; 36600; 71045-TC; 80048; 80053; 82375; 82550; 82803; 82962; 83050; 83735; 83880; 84484; 85025; 85610; 87804; 93005; 93010; 94640; 94660; 99285-25

== ENCOUNTER 2017-06-12 20:48 | Emergency (ER) | payer OTHER ==
--- NOTE | 2017-06-12 20:57 | PDOC ---
History of Present Illness - General History Source: Patient, EMS Exam Limitations: No Limitations - History of Present Illness Initial Comments: 06/12/17 21:38 The patient is a 61 year old female with a significant past medical history of HTN, HLD, DM, CHF, COPD (5L home O2), hep C, CKD, schizophrenia, BPD, and chronic low back and bilateral knee pain (follows pain management, takes hydrocodone), presents to the ER for low back and knee pain requesting pain medication because she "ran out of hydrocodone." The patient denies chest pain, shortness of breath, headache and dizziness. The patient denies fever, chills, nausea, vomit, diarrhea and constipation. The patient denies dysuria, frequency, urgency and hematuria. Allergies: ibuprofen, metformin, penicillins PCP - Dr. Nora Moses Pain Management - Dr. Scanlon ? <Masha Robert - Last Filed: 06/12/17 22:27> <Anita Garcia - Last Filed: 06/12/17 23:51> - General Stated Complaint: BACK PAIN Time Seen by Provider: 06/12/17 20:56 Past History <Masha Robert - Last Filed: 06/12/17 22:27> - Past Medical History Anemia: No Asthma: No Cancer: No Cardiac Disorders: Yes CVA: Yes COPD: Yes CHF: No DVT: No Dementia: No Diabetes: Yes GI Disorders: No Disorders: No HTN: Yes Hypercholesterolemia: Yes Liver Disease: Yes (Hepatitis C) Psychiatric Problems: Yes Seizures: No Thyroid Disease: (CKI) - Surgical History Abdominal Surgery: Yes Appendectomy: No Cardiac Surgery: No Cholecystectomy: No Lung Surgery: No Neurologic Surgery: No Orthopedic Surgery: No - Suicide/Smoking/Psychosocial Hx Smoking History: Never smoked Have you smoked in the past 12 months: No Number of Cigarettes Smoked Daily: 20 'Breaking Loose' booklet given: 04/14/17 Hx Alcohol Use: No Drug/Substance Use Hx: No Substance Use Type: None Hx Substance Use Treatment: No <Anita Garcia - Last Filed: 06/12/17 23:51> - Past Medical History Allergies/Adverse Reactions: Allergies Allergy/AdvReac Type Severity Reaction Status Date / Time ibuprofen [From Motrin IB] Allergy Verified 06/12/17 20:59 metformin Allergy Verified 06/12/17 20:59 Penicillins Allergy Verified 06/12/17 20:59 Home Medications: Ambulatory Orders Acetaminophen [Tylenol .Regular Strength -] 650 mg PO Q8H PRN tablet 05/10/17 Albuterol Sulfate Inhaler - [Ventolin HFA Inhaler -] 2 inh PO Q4H PRN #1 inh Amlodipine Besylate [Norvasc -] 10 mg PO DAILY #30 tablet 05/10/17 Ascorbic Acid [Vitamin C -] 500 mg PO DAILY tablet 05/10/17 Aspirin Coated [Ecotrin -] 81 mg PO DAILY #30 tablet.ec 05/10/17 Atorvastatin Ca [Lipitor] 40 mg PO DAILY #30 tablet 05/10/17 Carvedilol [Coreg -] 12.5 mg PO BID #30 tablet 05/10/17 Escitalopram Oxalate [Lexapro -] 20 mg PO DAILY #30 tablet 05/10/17 Ferrous Sulfate [Feosol] 325 mg PO DAILY #30 ud 05/10/17 Furosemide [Lasix -] 40 mg PO BID@0600,1400 tablet 05/10/17 Hydralazine HCl 25 mg PO TID #30 tablet 05/10/17 Lisinopril [Prinivil] 5 mg PO DAILY #30 tablet 05/10/17 Multivitamins [Multivit ([facility] Formulary)] 1 tab PO DAILY tab 05/10/17 Nicotine Patch [Nicoderm Patch -] 14 mg TD DAILY patch 05/10/17 Olanzapine [Zyprexa -] 10 mg PO BID #30 tablet 05/10/17 Sitagliptin Phosphate [Januvia -] 50 mg PO DAILY@0700 tablet 05/10/17 Oxycodone HCl/Acetaminophen [Percocet 5-325 mg Tablet] 1 tab PO BID #4 tablet MDD 2 tabs 06/12/17 Review of Systems - Review of Systems Able to Perform ROS?: Yes Comments:: 06/12/17 21:40 CONSTITUTIONAL: Absent: fever, no chills, no fatigue EYES: Absent: visual changes ENT: Absent: ear pain, no sore throat CARDIOVASCULAR: Absent: chest pain, no palpitations RESPIRATORY: Absent: cough, no SOB GI: Absent: abdominal pain, no nausea, no vomiting, no constipation, no diarrhea GENITOURINARY: Absent: dysuria, no frequency, no hematuria MUSCULOSKELETAL: (+) low back pain. Absent: no arthralgia, no myalgia SKIN: Absent: rash NEURO: Absent: headache <Masha Robert - Last Filed: 06/12/17 22:27> *Physical Exam - Vital Signs Last Vital Signs Temp Pulse Resp BP Pulse Ox 98.5 F 72 14 110/66 95 06/12/17 20:59 06/12/17 20:59 06/12/17 20:59 06/12/17 20:59 06/12/17 20:59 - Physical Exam Comments: 06/12/17 21:40 GENERAL: Well-appearing, well-nourished. No apparent distress. HEENT: Normocephalic, atraumatic. PERRL, EOM intact. CARDIOVASCULAR: Normal S1, S2. Regular rate and rhythm. PULMONARY: Clear to auscultation bilaterally. ABDOMEN: Soft, non-distended, non-tender. EXTREMITIES: Normal ROM in all four extremities. No gross deformities. SKIN: Warm, dry. No rash NEUROLOGICAL: No focal neurological deficits. <Masha Robert - Last Filed: 06/12/17 22:27> ED Treatment Course - Medications Given in the ED: ED Medications Discontinued Medications Generic Name Dose Route Start Last Admin Trade Name Sebastian PRN Reason Stop Dose Admin Oxycodone/Acetaminophen 2 combo 06/12/17 20:55 06/12/17 21:10 Percocet 5/325 - PO 06/12/17 20:56 2 combo ONCE ONE Administration <Masha Robert - Last Filed: 06/12/17 22:27> Medical Decision Making - Medical Decision Making 06/12/17 23:48 61 yo female with chronic pain states she ran out of her percocet for her chronic back was severe -no bladder or fecal incontinence ,no saddle anesthesia -her pain improved with percocet -pt told to see her pain doctor <Anita Garcia - Last Filed: 06/12/17 23:51> *DC/Admit/Observation/Transfer - Attestations Scribe Attestion: 06/12/17 21:41 Documentation prepared by Masha Robert, acting as medical transport specialist for Anita Garcia MD <Masha Robert - Last Filed: 06/12/17 22:27> <Anita Garcia - Last Filed: 06/12/17 23:51> Diagnosis at time of Disposition: Arthritis of both knees Chronic pain Qualifiers: Chronic pain type: other chronic pain Qualified Code(s): G89.29 - Other chronic pain - Discharge Dispostion Disposition: HOME Condition at time of disposition: Stable - Prescriptions Prescriptions: Oxycodone HCl/Acetaminophen [Percocet 5-325 mg Tablet] 1 tab PO BID #4 tablet MDD 2 tabs - Referrals Referrals: Nora Moses MD [Primary Care Provider] - - Patient Instructions Printed Discharge Instructions: DI for Knee Pain Additional Instructions: please see your pain management doctor
[2017-06-12 21:02] VITALS: BP 110/66; PULSE 72; TEMP 98.5; BMI 34.3
--- NOTE | 2017-06-13 12:36 | PDOC ---
Patient Follow-up (Call Back) - Post ED Follow - Up Condition at time of discharge: Stable Disposition at time of original discharge: HOME Reason for Call Back: Complaint/Condition F/U - Disposition Additional Instructions/Notes: Called back by patient who was unable to fill rx in pharmacy. I checked [facility] and it shows that she had hydrocodone rx filled on 05/24 for 30 day supply, Reference #: [id number]. I contacted the pharmacy and they stated she has a restriction on which providers can fill medications. I attempted to contact Dr. Torres, her pain mgmt physician at [place] office, was not available. I called the other office at [phone] in another attempt to contact and discuss. I spoke with him, he recommended that she follow up in his office in [place] tomorrow. Contacted patient again to discuss this. She agrees to f/u in his office tomorrow.
== END 2017-06-13 00:03 | disposition home or self-care (01) ==
LOC: JER 20:48
DX: M13.862 Other specified arthritis, left knee (principal); M13.861 Other specified arthritis, right knee; G89.29 Other chronic pain; I10 Essential (primary) hypertension; I50.9 Heart failure, unspecified; E78.00 Pure hypercholesterolemia, unspecified; E11.9 Type 2 diabetes mellitus without complications; J44.9 Chronic obstructive pulmonary disease, unspecified; B18.2 Chronic viral hepatitis C; F20.9 Schizophrenia, unspecified
CPT/HCPCS: 73562-TC-LT-FY; 73562-TC-RT-FY; 99282-25

== ENCOUNTER 2017-06-14 18:37 | Emergency (ER) | payer OTHER ==
[2017-06-14 19:22] VITALS: BP 120/70; PULSE 68; TEMP 99.1; BMI 24.0
--- NOTE | 2017-06-15 00:07 | PDOC ---
History of Present Illness - General Chief Complaint: Back Pain Stated Complaint: BACK PAIN Time Seen by Provider: 06/14/17 23:52 - History of Present Illness Initial Comments: 06/15/17 00:06 CHIEF COMPLAINT: I need pain meds HISTORY OF PRESENT ILLNESS: The patient is a 61 year old female with a significant past medical history of HTN, HLD, DM, CHF, COPD (5L home O2), hep C, CKD, schizophrenia, BPD, and chronic low back and bilateral knee pain (follows pain management, takes hydrocodone), presents to the ER for low back and knee pain requesting pain medication because she "ran out of hydrocodone." Patient was seen in this ER two days ago for same complaint and reports that she has a "restriction" on her medications and she can not get any until June 22. The patient denies chest pain, shortness of breath, headache and dizziness. The patient denies fever, chills, nausea, vomit, diarrhea and constipation. The patient denies dysuria, frequency, urgency and hematuria. Allergies: ibuprofen, metformin, penicillins PCP - Dr. Nora Moses Pain Management - Dr. Torres No recent travel or sick contacts. PAST MEDICAL HISTORY: as per HPI FAMILY HISTORY: Denies SOCIAL HISTORY: Denies tobacco, alcohol, illicit drug use. SURGICAL HISTORY: Denies ALLERGIES: No known drug allergies REVIEW OF SYSTEMS as per HPI PHYSICAL EXAM General Appearance: Well-appearing, appropriately dressed. No apparent distress , no intoxication. HEENT: EOMI, PERRLA, normal ENT inspection, normal voice, TMs normal, pharynx normal. No conjunctival pallor. No photophobia, scleral icterus. Neck: Supple. Trachea midline. No tenderness, rigidity, carotid bruit, stridor , lymphadenopathy, or thyromegaly. Respiratory/Chest: Lungs CTAB. No shortness of breath, chest tenderness, respiratory distress, accessory muscle use. No crackles, rales, rhonchi, stridor , wheezing, dullness Cardiovascular: RRR. S1, S2. No JVD, murmur, bradycardia, tachycardia. Vascular Pulses: Dorsalis-Pedis (R): 2+, Dorsalis-Pedis (L): 2+ Gastrointestinal/Abdominal: Normal bowel sounds. Abdomen soft, non-distended. No tenderness or rebound tenderness. No organomegaly, pulsatile mass, guarding , hernia, hepatomegaly, splenomegaly. Lymphatic: No adenopathy, tenderness. Musculoskeletal/Extremities: Normal inspection. FROM of all extremities, normal capillary refill. Pelvis Stable. No CVA tenderness. No tenderness to extremities, pedal edema, swelling, erythema or deformity. Integumentary: Appropriate color, dry, warm. No cyanosis, erythema, jaundice or rash Neurologic: family and consumer science professor II-XII intact. Fully oriented, alert. Appropriate mood/affect. Motor strength 5/5. No appreciable EOM palsy, facial droop or sensory deficit. 06/15/17 00:07 Past History - Past Medical History Allergies/Adverse Reactions: Allergies Allergy/AdvReac Type Severity Reaction Status Date / Time ibuprofen [From Motrin IB] Allergy Verified 06/14/17 19:22 metformin Allergy Verified 06/14/17 19:22 Penicillins Allergy Verified 06/14/17 19:22 Home Medications: Ambulatory Orders Acetaminophen [Tylenol .Regular Strength -] 650 mg PO Q8H PRN tablet 05/10/17 Albuterol Sulfate Inhaler - [Ventolin HFA Inhaler -] 2 inh PO Q4H PRN #1 inh Amlodipine Besylate [Norvasc -] 10 mg PO DAILY #30 tablet 05/10/17 Ascorbic Acid [Vitamin C -] 500 mg PO DAILY tablet 05/10/17 Aspirin Coated [Ecotrin -] 81 mg PO DAILY #30 tablet.ec 05/10/17 Atorvastatin Ca [Lipitor] 40 mg PO DAILY #30 tablet 05/10/17 Carvedilol [Coreg -] 12.5 mg PO BID #30 tablet 05/10/17 Escitalopram Oxalate [Lexapro -] 20 mg PO DAILY #30 tablet 05/10/17 Ferrous Sulfate [Feosol] 325 mg PO DAILY #30 ud 05/10/17 Furosemide [Lasix -] 40 mg PO BID@0600,1400 tablet 05/10/17 Hydralazine HCl 25 mg PO TID #30 tablet 05/10/17 Lisinopril [Prinivil] 5 mg PO DAILY #30 tablet 05/10/17 Multivitamins [Multivit ([facility] Formulary)] 1 tab PO DAILY tab 05/10/17 Nicotine Patch [Nicoderm Patch -] 14 mg TD DAILY patch 05/10/17 Olanzapine [Zyprexa -] 10 mg PO BID #30 tablet 05/10/17 Sitagliptin Phosphate [Januvia -] 50 mg PO DAILY@0700 tablet 05/10/17 Oxycodone HCl/Acetaminophen [Percocet 5-325 mg Tablet] 1 tab PO BID #4 tablet MDD 2 tabs 06/12/17 Anemia: No Asthma: No Cancer: No Cardiac Disorders: Yes CVA: Yes COPD: Yes CHF: No DVT: No Dementia: No Diabetes: Yes GI Disorders: No Disorders: No HTN: Yes Hypercholesterolemia: Yes Liver Disease: Yes (Hepatitis C) Psychiatric Problems: Yes Seizures: No Thyroid Disease: (CKI) - Surgical History Abdominal Surgery: Yes Appendectomy: No Cardiac Surgery: No Cholecystectomy: No Lung Surgery: No Neurologic Surgery: No Orthopedic Surgery: No - Suicide/Smoking/Psychosocial Hx Smoking History: Never smoked Have you smoked in the past 12 months: No Number of Cigarettes Smoked Daily: 20 'Breaking Loose' booklet given: 04/14/17 Hx Alcohol Use: No Drug/Substance Use Hx: No Substance Use Type: None Hx Substance Use Treatment: No *Physical Exam - Vital Signs Last Vital Signs Temp Pulse Resp BP Pulse Ox 99.1 F 68 18 120/70 96 06/14/17 19:19 06/14/17 19:19 06/14/17 19:19 06/14/17 19:19 06/14/17 19:19 Medical Decision Making - Medical Decision Making 06/15/17 00:08 The patient is a 61 year old female with a significant past medical history of HTN, HLD, DM, CHF, COPD (5L home O2), hep C, CKD, schizophrenia, BPD, and chronic low back and bilateral knee pain (follows pain management, takes hydrocodone), presents to the ER for low back and knee pain requesting pain medication because she "ran out of hydrocodone." Discussed with patient options for pain control; patient is agitated and states no other medications work for her pain and she cannot walk from the pain. 2 Percocet po Will not prescribe Percocet as patient has script waiting at pharmacy to be filled on June 22. *DC/Admit/Observation/Transfer Diagnosis at time of Disposition: Arthritis of both knees - Discharge Dispostion Disposition: HOME Condition at time of disposition: Stable Admit: No - Referrals Referrals: Nora Moses MD [Primary Care Provider] - Capo Torres MD [Staff Physician] - - Patient Instructions Printed Discharge Instructions: DI for Knee Pain Additional Instructions: Please continue to see Dr. Torres for continued pain management. If you develop any loss of sensation to your lower extremities, loss of bowel or bladder function, or any new or worsening symptoms, please return to the ER. - Post Discharge Activity
--- NOTE | 2017-06-15 00:27 | PDOC ---
*Physical Exam - Vital Signs Last Vital Signs Temp Pulse Resp BP Pulse Ox 99.1 F 68 18 120/70 96 06/14/17 19:19 06/14/17 19:19 06/14/17 19:19 06/14/17 19:19 06/14/17 19:19 ED Treatment Course - Medications Given in the ED: ED Medications Discontinued Medications Generic Name Dose Route Start Last Admin Trade Name Freq PRN Reason Stop Dose Admin Oxycodone/Acetaminophen 2 combo 06/15/17 00:05 06/15/17 00:19 Percocet 5/325 - PO 06/15/17 00:06 2 combo ONCE ONE Administration Medical Decision Making - Medical Decision Making 06/15/17 00:27 agree with car from EVELYN Hassan *DC/Admit/Observation/Transfer Diagnosis at time of Disposition: Arthritis of both knees - Discharge Dispostion Disposition: HOME Condition at time of disposition: Stable - Referrals Referrals: Capo Torres MD [Staff Physician] - Nora Moses MD [Primary Care Provider] - - Patient Instructions Printed Discharge Instructions: DI for Knee Pain Additional Instructions: Please continue to see Dr. Torres for continued pain management. If you develop any loss of sensation to your lower extremities, loss of bowel or bladder function, or any new or worsening symptoms, please return to the ER. - Post Discharge Activity
== END 2017-06-15 00:53 | disposition home or self-care (01) ==
LOC: JER 18:37
DX: M13.862 Other specified arthritis, left knee (principal); M13.861 Other specified arthritis, right knee; I25.10 Atherosclerotic heart disease of native coronary artery without angina pectoris; I13.0 Hypertensive heart and chronic kidney disease with heart failure and stage 1 through stage 4 chronic kidney disease, or unspecified chronic kidney disease; N18.9 Chronic kidney disease, unspecified; I50.9 Heart failure, unspecified; E11.9 Type 2 diabetes mellitus without complications; J44.9 Chronic obstructive pulmonary disease, unspecified; Z99.81 Dependence on supplemental oxygen; B18.2 Chronic viral hepatitis C; F20.9 Schizophrenia, unspecified
CPT/HCPCS: 99282-25

== ENCOUNTER 2017-06-23 21:34 | Observation (INO) | payer OTHER ==
[2017-06-23 21:55] VITALS: BMI 37.8
[2017-06-23] MEDS ORDERED: ALBUTEROL SO4 2.5/IPRATROPIUM 0.5 INH SOL 3 ML VIAL.NEB. NEB ONE (22:11)
--- NOTE | 2017-06-23 22:21 | PDOC ---
History of Present Illness - General Chief Complaint: Chest Pain Stated Complaint: CHEST PAIN Time Seen by Provider: 06/23/17 22:03 History Source: Patient Exam Limitations: No Limitations - History of Present Illness Initial Comments: 06/23/17 22:15 Patient is a 61F with history of HTN, HLD, CHF, COPD, HCV, schizophrenia, CKD here today complaining of sudden onset of chest pain this morning with associated shortness of breath. She states that the pain is located on her left sternal border with radiation to her back. Patient states her pain is unchanged with movement but worsened with inspiration. Patient denies pain with palpation and arm movement. Patient denies history of blood clots, recent travel, recent immobilization. Denies cough, wheezing. Patient states she has been taking her medications. Patient is asking for duonebs. Past History - Past Medical History Allergies/Adverse Reactions: Allergies Allergy/AdvReac Type Severity Reaction Status Date / Time ibuprofen [From Motrin IB] Allergy Verified 06/23/17 21:41 metformin Allergy Verified 06/23/17 21:41 Penicillins Allergy Verified 06/23/17 21:41 Home Medications: Ambulatory Orders Acetaminophen [Tylenol .Regular Strength -] 650 mg PO Q8H PRN tablet 05/10/17 Albuterol Sulfate Inhaler - [Ventolin HFA Inhaler -] 2 inh PO Q4H PRN #1 inh Amlodipine Besylate [Norvasc -] 10 mg PO DAILY #30 tablet 05/10/17 Ascorbic Acid [Vitamin C -] 500 mg PO DAILY tablet 05/10/17 Aspirin Coated [Ecotrin -] 81 mg PO DAILY #30 tablet.ec 05/10/17 Atorvastatin Ca [Lipitor] 40 mg PO DAILY #30 tablet 05/10/17 Carvedilol [Coreg -] 12.5 mg PO BID #30 tablet 05/10/17 Escitalopram Oxalate [Lexapro -] 20 mg PO DAILY #30 tablet 05/10/17 Ferrous Sulfate [Feosol] 325 mg PO DAILY #30 ud 05/10/17 Furosemide [Lasix -] 40 mg PO BID@0600,1400 tablet 05/10/17 Hydralazine HCl 25 mg PO TID #30 tablet 05/10/17 Lisinopril [Prinivil] 5 mg PO DAILY #30 tablet 05/10/17 Multivitamins [Multivit ([facility] Formulary)] 1 tab PO DAILY tab 05/10/17 Nicotine Patch [Nicoderm Patch -] 14 mg TD DAILY patch 05/10/17 Olanzapine [Zyprexa -] 10 mg PO BID #30 tablet 05/10/17 Sitagliptin Phosphate [Januvia -] 50 mg PO DAILY@0700 tablet 05/10/17 Oxycodone HCl/Acetaminophen [Percocet 5-325 mg Tablet] 1 tab PO BID #4 tablet MDD 2 tabs 06/12/17 Anemia: No Asthma: No Cancer: No Cardiac Disorders: Yes CVA: Yes COPD: No CHF: No DVT: No Dementia: No Diabetes: Yes GI Disorders: No Disorders: No HTN: Yes Hypercholesterolemia: Yes Liver Disease: Yes (Hepatitis C) Psychiatric Problems: Yes Seizures: No Thyroid Disease: (CKI) - Surgical History Abdominal Surgery: Yes Appendectomy: No Cardiac Surgery: No Cholecystectomy: No Lung Surgery: No Neurologic Surgery: No Orthopedic Surgery: No - Suicide/Smoking/Psychosocial Hx Smoking History: Current every day smoker Have you smoked in the past 12 months: No Number of Cigarettes Smoked Daily: 20 Information on smoking cessation initiated: No 'Breaking Loose' booklet given: 04/14/17 Hx Alcohol Use: No Drug/Substance Use Hx: No Substance Use Type: Alcohol Hx Substance Use Treatment: No Review of Systems - Review of Systems Comments:: 06/23/17 22:18 GENERAL/CONSTITUTIONAL: No fever or chills. No weakness. HEAD, EYES, EARS, NOSE AND THROAT: No change in vision. No sore throat. CARDIOVASCULAR: Positive for chest pain and shortness of breath RESPIRATORY: No cough, wheezing, or hemoptysis. GASTROINTESTINAL: No nausea, vomiting, diarrhea or constipation. GENITOURINARY: No dysuria, frequency, or change in urination. MUSCULOSKELETAL: No joint or muscle swelling or pain. No neck or back pain. SKIN: No rash NEUROLOGIC: Positive for headache. Negative for vertigo, loss of consciousness, or change in strength/sensation. HEMATOLOGIC/LYMPHATIC: No anemia, easy bleeding, or history of blood clots. ALLERGIC/IMMUNOLOGIC: No hives or skin allergy. *Physical Exam - Vital Signs Last Vital Signs Temp Pulse Resp BP Pulse Ox 98.0 F 72 16 125/72 100 06/23/17 21:40 06/23/17 21:40 06/23/17 21:40 06/23/17 21:40 06/23/17 21:40 - Physical Exam Comments: 06/23/17 22:21 GENERAL: Awake, alert, and fully oriented, in no acute distress HEAD: No signs of trauma, normocephalic, atraumatic EYES: PERRLA, EOMI, sclera anicteric, conjunctiva clear ENT: Auricles normal inspection, hearing grossly normal, nares patent, oropharynx clear without exudates. Moist mucosa NECK: Normal ROM, supple, no lymphadenopathy, JVD, or masses LUNGS: No distress, speaks full sentences, scattered wheezes bilaterallly HEART: Regular rate and rhythm, normal S1 and S2, no murmurs, rubs or gallops, peripheral pulses normal and equal bilaterally. ABDOMEN: Soft, nontender, normoactive bowel sounds. No guarding, no rebound. No masses. Multiple small excoriations on abdomen. EXTREMITIES: Old scarring, trace pitting edema. No clubbing or cyanosis. NEUROLOGICAL: Cranial nerves II through XII grossly intact. Normal speech, no focal sensorimotor deficits Heart Score/ECG Review - History History: Moderately suspicious - Electrocardiogram EKG: Normal - Age Age: 45-65 - Risk Factors Risk Factors Heart Score: Yes Hx Hypercholesterolemia, Yes Hx Hypertension, Yes Smoking History, Yes Hx Obesity Based on the list above the patient has:: >/=3 risk factors or Hx atherosclerotic disease - Troponin Troponin: </= normal limit - Score Heart Score - Total: 4 ED Treatment Course - LABORATORY CBC & Chemistry Diagram: 06/23/17 23:23 06/23/17 23:23 - RADIOLOGY Radiology Studies Ordered: Category Date Time Status CHEST X-RAY PORTABLE* [RAD] Stat Radiology 06/23/17 22:10 Ordered Medical Decision Making - Medical Decision Making 06/23/17 22:23 Patient is a 61F with history of HTN, HLD, CHF, COPD, HCV, schizophrenia, CKD here today with chest pain. Vital signs stable and normal. Story fairly typical. Will evaluate with cardiac workup. Do not believe PE is likely in the patient. Differential diagnosis includes, but is not limited to: ACS, arrhythmia , COPD exacerbation. EKG shows normal sinus rhythm. Normal rate, normal axis. No st elevations/ depressions. QTc prolonged to 492. No significant t wave wave abormalities. Normal WI and QRS intervals. 06/23/17 23:14 Patient now complaining of leg pain, right worse than left. Will add on d-dimer and dvt ultrasound. Will age adjust d-dimer. 06/24/17 00:10 Laboratory Tests 06/23/17 06/23/17 06/23/17 23:09 23:23 23:23 WBC 3.3 L Hgb 11.5 D Hct 37.2 D Plt Count 218 D D-Dimer 531 H Troponin I < 0.02 B-Natriuretic Peptide 395.56 H CBC normal. D-dimer negative when age adjusted. Trop undetectable. BNP normal. HEART score 4/5. Will admit for obs tele. Signed out to Dr Leonard. *DC/Admit/Observation/Transfer Diagnosis at time of Disposition: Chest pain - Discharge Dispostion Condition at time of disposition: Stable - Referrals - Patient Instructions - Post Discharge Activity
--- NOTE | 2017-06-23 22:23 | PDOC ---
Attending Attestation - Resident Resident Name: Jose Quesada - ED Attending Attestation I have performed the following: I have examined & evaluated the patient, The case was reviewed & discussed with the resident, I agree w/resident's findings & plan, Exceptions are as noted - HPI HPI: 06/24/17 00:58 Ms Gonzalez is a 61 yo F who presents to the ER today with a complaint of HTN, HLD , CHF, COPD, HCV, schizophrenia, CKD here today complaining of left sided chest pain and shortness of breath Decreased exercise tolerance (1/2 block) No fevers, chills, change in sputum Pt has had lower extremity edema which has not worsened 06/24/17 01:03 - Physicial Exam PE: 06/24/17 01:04 GENERAL: Awake, alert, and fully oriented, in no acute distress, pt appears short of breath HEAD: Nml EYES: PERRLA, EOMI, sclera anicteric, conjunctiva clear NECK: Normal ROM, supple, no JVD LUNGS: Insp wheezing, no rhonchi, no crackles HEART: Regular rate and rhythm, normal S1 and S2, no murmurs, rubs or gallops, peripheral pulses normal and equal bilaterally. ABDOMEN: Soft, nontender, EXTREMITIES: Old scarring, trace pitting edema. NEUROLOGICAL: Cranial nerves II through XII grossly intact. Normal speech, no focal sensorimotor deficits - Medical Decision Making 06/24/17 01:07 61 yo F HEART score 4 Presenting with chest pain Age adjusted D dimer negative CXR: cardiomegaly Laboratory Tests 06/23/17 06/23/17 06/23/17 23:09 23:23 23:23 WBC 3.3 L Hgb 11.5 D Hct 37.2 D Plt Count 218 D Neutrophils % 39.3 L D Lymphocytes % 45.1 H D D-Dimer 531 H Sodium 137 Potassium 3.4 L Chloride 103 Carbon Dioxide 23 BUN 17 Creatinine 1.2 H Random Glucose 109 H Creatine Kinase 41 Troponin I < 0.02 B-Natriuretic Peptide 395.56 H Clinical Impression: chest pain, initial presentation Case reviewed with the hospitalist Will place on observation to telemetry Clinical impression: chest pain, initial presentation 06/24/17 01:17 Discharge Disposition - Diagnosis Chest pain Qualifiers: Chest pain type: unspecified Qualified Code(s): R07.9 - Chest pain, unspecified - Discharge Dispostion Condition at time of disposition: Stable Last Admission D/C Date: 05/19/17 Admit: Yes - Referrals - Patient Instructions - Post Discharge Activity Heart Score/ECG Review - History History: Moderately suspicious - Electrocardiogram EKG: Normal - Age Age: 45-65 - Risk Factors Risk Factors Heart Score: Yes Hx Hypercholesterolemia, Yes Hx Hypertension, Yes Hx Diabetes, Yes Hx Obesity Based on the list above the patient has:: >/=3 risk factors or Hx atherosclerotic disease - Troponin Troponin: </= normal limit - Score Heart Score - Total: 4
[2017-06-23] MEDS ORDERED: ACETAMINOPHEN 325 MG TABLET (FP) PO ONE (23:12)
[2017-06-23 23:33] LABS: BASO % 0.4 % (0-2.0); EOS % 1.1 % (0-4.5); HEMATOCRIT 37.2 % (32.4-45.2); HEMOGLOBIN 11.5 GM/dL (10.7-15.3); LYMPH % 45.1 % (8-40); MCH 25.4 pg (25.7-33.7); MCHC 30.9 g/dl (32.0-36.0); MEAN CELL VOLUME 82.2 fl (80-96); MEAN PLT VOLUME 7.2 fl (7.5-11.1); MONO % 14.1 % (3.8-10.2); NEUT % 39.3 % (42.8-82.8); PLATELET COUNT 218 K/MM3 (134-434); RBC 4.53 M/mm3 (3.60-5.2); RDW 22.2 % (11.6-15.6); WHITE BLOOD COUNT 3.3 K/mm3 (4.0-10.0)
[2017-06-23 23:55] LABS: ALBUMIN 3.2 g/dl (3.4-5.0); ANION GAP 11 (8-16); BLOOD UREA NITROGEN 17 mg/dL (7-18); CALCIUM 8.4 mg/dL (8.5-10.1); CHLORIDE 103 mmol/L (98-107); CO2 23 mmol/L (21-32); CREATININE 1.2 mg/dL (0.55-1.02); GLUCOSE,RANDOM 109 mg/dL (74-106); MAGNESIUM 1.8 mg/dL (1.8-2.4); POTASSIUM 3.4 mmol/L (3.5-5.1); SGOT/AST 102 U/L (15-37); SGPT/ALT 77 U/L (12-78); SODIUM 137 mmol/L (136-145)
[2017-06-24] LABS: ALK PHOS 115 U/L (45-117); BILIRUBIN,TOTAL 0.3 mg/dL (0.2-1.0); N-TERMINAL BNP 395.56 pg/ml (5-125); TOT PROT 7.2 g/dl (6.4-8.2)
[2017-06-24 00:01] LABS: INR 0.97 (0.82-1.09)
--- NOTE | 2017-06-24 01:08 | HP ---
CHIEF COMPLAINT: PCP: none HISTORY OF PRESENT ILLNESS: This is a 61 yo F with PMH of CAD, diastolic failure, HTN, HLD, CHF, COPD, HCV, schizophrenia/bipolar, CKD, who presented due to sudden onset of cp and sob since this morning. Patient has had multiple hospitalizations for the same issue , most recently 05/18/17, at which time she was treated for COPD/CHF exacerbation but left AMA. She currently reports constant pleuritic L sided cp radiating to back. It comes and goes and is reproducible by chest wall palpation. She also reports worsening orthopnea (sleeps on 3 pillows) and decreased exercise tolerance. Shes unsure of whether her LE edema is getting worse. She denies loss of appetite but reports gradual 30 lb weight loss. She reports home medication compliance. PAteint reports history of [place] 1 yr ago but does not remember details. She denies history of PE, DVT, cough, wheezing, dizziness, h/a, syncope, n/v, diarrhea, dysuria, f/c. Denies sore throat, runny nose. Pateint is a poor historian, unwilling to talk. Last TTE 03/27/17 normal EF, R heart not visualized ER course was notable for: (1)labs (2)ekg: New [address] elevation in v2 (3)cxr cardiomegaly, especially R side; b/l congestion but no change from prior (4)b/l duplex-unremarkable for dvt (5)Duonebs Recent Travel: denies PAST MEDICAL HISTORY: as above PAST SURGICAL HISTORY: Hysterectomy Social History: Smoking: Current smoker 8 cig/day Alcohol: denies Drugs: denies Family History: unknown Allergies ibuprofen [From Motrin IB] Allergy (Verified 06/23/17 21:41) metformin Allergy (Verified 06/23/17 21:41) Penicillins Allergy (Verified 06/23/17 21:41) HOME MEDICATIONS: Home Medications Medication Instructions Recorded Acetaminophen [Tylenol .Regular 650 mg PO Q8H PRN tablet 05/10/17 Strength -] Albuterol Sulfate Inhaler - 2 inh PO Q4H PRN #1 inh 05/10/17 [Ventolin HFA Inhaler -] Amlodipine Besylate [Norvasc -] 10 mg PO DAILY #30 tablet 05/10/17 Ascorbic Acid [Vitamin C -] 500 mg PO DAILY tablet 05/10/17 Aspirin Coated [Ecotrin -] 81 mg PO DAILY #30 tablet.ec 05/10/17 Atorvastatin Ca [Lipitor] 40 mg PO DAILY #30 tablet 05/10/17 Carvedilol [Coreg -] 12.5 mg PO BID #30 tablet 05/10/17 Escitalopram Oxalate [Lexapro -] 20 mg PO DAILY #30 tablet 05/10/17 Ferrous Sulfate [Feosol] 325 mg PO DAILY #30 ud 05/10/17 Furosemide [Lasix -] 40 mg PO BID@0600,1400 tablet 05/10/17 Hydralazine HCl 25 mg PO TID #30 tablet 05/10/17 Lisinopril [Prinivil] 5 mg PO DAILY #30 tablet 05/10/17 Multivitamins [Multivit ([facility] 1 tab PO DAILY tab 05/10/17 Formulary)] Nicotine Patch [Nicoderm Patch -] 14 mg TD DAILY patch 05/10/17 Olanzapine [Zyprexa -] 10 mg PO BID #30 tablet 05/10/17 Sitagliptin Phosphate [Januvia -] 50 mg PO DAILY@0700 tablet 05/10/17 Oxycodone HCl/Acetaminophen 1 tab PO BID #4 tablet MDD 2 tabs 06/12/17 [Percocet 5-325 mg Tablet] REVIEW OF SYSTEMS CONSTITUTIONAL: Absent: fever, chills, diaphoresis, loss of appetite HEENT: Absent: rhinorrhea, nasal congestion, throat pain, throat swelling, difficulty swallowing CARDIOVASCULAR: Absent: syncope, palpitations, irregular heart rate, lightheadedness RESPIRATORY: Absent: cough, wheezing, stridor, hemoptysis GASTROINTESTINAL: Absent: abdominal pain, abdominal distension, nausea, vomiting, diarrhea, constipation, melena, hematochezia GENITOURINARY: Absent: dysuria MUSCULOSKELETAL: Absent: myalgia, arthralgia SKIN: Absent: rash, itching, pallor HEMATOLOGIC/IMMUNOLOGIC: Absent: easy bleeding, easy bruising ENDOCRINE: Absent: heat intolerance, cold intolerance NEUROLOGIC: Absent: headache, focal weakness or paresthesias PSYCHIATRIC: Absent: anxiety, depression PHYSICAL EXAMINATION Vital Signs - 24 hr 06/23/17 21:40 Temperature 98.0 F Pulse Rate 72 Respiratory 16 Rate Blood Pressure 125/72 O2 Sat by Pulse 100 Oximetry (%) GENERAL: Awake, alert, and fully oriented, in no acute distress. HEAD: Normal with no signs of trauma. EYES: Pupils equal, round and reactive to light, extraocular movements intact, sclera anicteric, conjunctiva clear. No lid lag. EARS, NOSE, THROAT: Moist mucous membranes. NECK: supple +JVD at 30 degree recline LUNGS: bibasilar ronchi, crackles HEART: Regular rate and rhythm, normal S1 and S2 grade 3 systolic murmur ABDOMEN: Soft, nontender, not distended, normoactive bowel sounds, no guarding, no rebound, no masses. MUSCULOSKELETAL: No CVA tenderness. UPPER EXTREMITIES: 2+ pulses, warm, well-perfused. No cyanosis. No clubbing. No peripheral edema. LOWER EXTREMITIES: 2+ pulses, warm, well-perfused. No calf tenderness. 1+ peripheral edema. NEUROLOGICAL: Cranial nerves II-XII grossly intact. Normal speech. PSYCHIATRIC: Cooperative. Good eye contact. angry mood and full affect. SKIN: Warm, dry Laboratory Results - last 24 hr 06/23/17 06/23/17 06/23/17 23:09 23:23 23:23 WBC 3.3 L RBC 4.53 Hgb 11.5 D Hct 37.2 D MCV 82.2 MCH 25.4 L MCHC 30.9 L RDW 22.2 H Plt Count 218 D MPV 7.2 L Neutrophils % 39.3 L D Lymphocytes % 45.1 H D Monocytes % 14.1 H Eosinophils % 1.1 D Basophils % 0.4 PT with INR 11.00 INR 0.97 D-Dimer 531 H Sodium Potassium Chloride Carbon Dioxide Anion Gap BUN Creatinine Creat Clearance w eGFR Random Glucose Calcium Magnesium Total Bilirubin AST ALT Alkaline Phosphatase Creatine Kinase Troponin I B-Natriuretic Peptide Total Protein Albumin 06/23/17 23:23 WBC RBC Hgb Hct MCV MCH MCHC RDW Plt Count MPV Neutrophils % Lymphocytes % Monocytes % Eosinophils % Basophils % PT with INR INR D-Dimer Sodium 137 Potassium 3.4 L Chloride 103 Carbon Dioxide 23 Anion Gap 11 BUN 17 Creatinine 1.2 H Creat Clearance w eGFR 45.52 Random Glucose 109 H Calcium 8.4 L Magnesium 1.8 Total Bilirubin 0.3 D AST 102 H ALT 77 Alkaline Phosphatase 115 Creatine Kinase 41 Troponin I < 0.02 B-Natriuretic Peptide 395.56 H Total Protein 7.2 Albumin 3.2 L ASSESSMENT/PLAN: This is a 61 yo F with PMH of CAD, diastolic failure, HTN, HLD, CHF, COPD, HCV, schizophrenia/bipolar, CKD, who presented due to sudden onset of cp and sob since this morning. Atypical chest pain with EKG changes in setting of probable CAD -ddimer wnl for age, LE duplex unremarkable for dvt -suspect musculoskeletal vs cardiac etiology -tylenol prn r/o HFPEF exacerbation NYHA class II -new v2 st elevation 1mm; trop negative x1, however normal axis, will repeat -repeat AM ekg -CXR prominent R heart, diffuse increased vascular markings, possible evidence of pulm HTN affecting R heart -physical exam suggestive of possible volume overload, however baseline unknown to me; patient satting 98% on home 2L NC -IV lasix 40 once,then resume home lasix 40 po bid -resume ASA, Coreg, lipitor, Lisinopril -cardiac monitoring -cardiology consult -TTE to visualize R heart -will eventually need nuclear stress test to assess CAD severity -repeat AM CXR COPD -stable -duonebs prn HTN -continue norvasc 10 d, other meds as above HLD -lipitor 40 hs NIDDM -hold januvia -bgm achs, iss schizophrenia/bipolar disorder -continue zyprexa, lexapro Obesity -dietary counseling FEN PO hydration, diabetic na restricted diet monitor mag/phos/k scds OBS tele. May need to be upgraded to inpatient if trop + or if tte inconclusive Problem List - Problem (1) Chest pain Code(s): R07.9 - CHEST PAIN, UNSPECIFIED (2) Acute on chronic diastolic (congestive) heart failure Code(s): I50.33 - ACUTE ON CHRONIC DIASTOLIC (CONGESTIVE) HEART FAILURE (3) Anxiety Code(s): F41.9 - ANXIETY DISORDER, UNSPECIFIED (4) Bipolar disorder Code(s): F31.9 - BIPOLAR DISORDER, UNSPECIFIED Qualifiers: Active/Remission status: remission status unspecified Qualified Code(s): F31.9 - Bipolar disorder, unspecified (5) CAD (coronary artery disease) Code(s): I25.10 - ATHSCL HEART DISEASE OF [place] CORONARY ARTERY W/O ANG PCTRS Qualifiers: Coronary Disease-Associated Artery/Lesion type: [place] artery [place] vs. transplanted heart: [place] heart Associated angina: without angina Qualified Code(s): I25.10 - Atherosclerotic heart disease of [place] coronary artery without angina pectoris (6) CHF (congestive heart failure) Code(s): I50.9 - HEART FAILURE, UNSPECIFIED (7) COPD (chronic obstructive pulmonary disease) Code(s): J44.9 - CHRONIC OBSTRUCTIVE PULMONARY DISEASE, UNSPECIFIED Qualifiers: COPD type: unspecified COPD Qualified Code(s): J44.9 - Chronic obstructive pulmonary disease, unspecified (8) Chronic kidney insufficiency Code(s): N18.9 - CHRONIC KIDNEY DISEASE, UNSPECIFIED Qualifiers: Chronic kidney disease stage: unspecified stage Qualified Code(s): N18.9 - Chronic kidney disease, unspecified (9) Chronic pain Code(s): G89.29 - OTHER CHRONIC PAIN Qualifiers: Chronic pain type: other chronic pain Qualified Code(s): G89.29 - Other chronic pain (10) Diabetes mellitus Code(s): E11.9 - TYPE 2 DIABETES MELLITUS WITHOUT COMPLICATIONS Qualifiers: Diabetes mellitus type: type 2 Diabetes mellitus complication status: without complication Diabetes mellitus long-term insulin use: without long-term use Qualified Code(s): E11.9 - Type 2 diabetes mellitus without complications (11) Hypertension Code(s): I10 - ESSENTIAL (PRIMARY) HYPERTENSION Qualifiers: Hypertension type: essential hypertension Qualified Code(s): I10 - Essential (primary) hypertension (12) Schizophrenia Code(s): F20.9 - SCHIZOPHRENIA, UNSPECIFIED Qualifiers: Schizophrenia type: unspecified Qualified Code(s): F20.9 - Schizophrenia, unspecified Visit type - Emergency Visit Emergency Visit: Yes ED Registration Date: 06/24/17 Care time: The patient presented to the Emergency Department on the above date and was hospitalized for further evaluation of their emergent condition. - New Patient This patient is new to me today: Yes Date on this admission: 06/24/17 - Critical Care Critical Care patient: No Hospitalist Screening - Colonoscopy Questionnaire Colonoscopy Questionnaire: Colonoscopy Questionnaire - Patient: 50 - 75 years old and never had a screening colonoscopy: Yes History of colon or rectal polyps, or CA: No History of IBD, Crohn's disease or UC: No History of abdominal radiation therapy as a child: No - Relative: 1 with colon or rectal CA, or polyps at age 60 or younger: No Colon or rectal CA diagnosed at age 45 or younger: No Multiple relatives with colon or rectal CA: No - Outcome: Screening Result: Positive Screen
[2017-06-24] MEDS ORDERED: FUROSEMIDE 40 MG/4 ML INJECTABLE VIAL IVPUSH ONE (01:46)
[2017-06-24] MEDS ORDERED: ACETAMINOPHEN 325 MG TABLET (FP) PO PRN (02:19)
[2017-06-24] MEDS ORDERED: ALBUTEROL SO4 18 GM HFA INHALER IH PRN (02:19)
[2017-06-24] MEDS ORDERED: hydrALAZINE HCL 25 MG TABLET (FP) PO SCH (06:00)
[2017-06-24] MEDS: INSULIN SLIDING SCALE (NOVOLOG) 1 VIAL SQ SCH ×2 (06:25→12:06)
--- NOTE | 2017-06-24 06:50 | PN ---
Teaching Attending Note Name of Resident: Christina Mckenzie ATTENDING PHYSICIAN STATEMENT I saw and evaluated the patient. I reviewed the resident's note and discussed the case with the resident. I agree with the resident's findings and plan as documented. SUBJECTIVE: 61F with possible diastolic HF, COPD, presents with left sided chest pressure since yesterday, started at rest and worse with exertion OBJECTIVE: She is resting comfortably on room air at 0 degrees CV: RRR no m/r/g lungs: CTA-B LE: 1+ edema EKG: sinus rhyhtm, largely unchanged compared to prior Troponin neg x1 ASSESSMENT AND PLAN: trend troponins, ekg cardiology eval stress test to be considered inpatient vs outpatient Problem List - Problems (1) Chest pain Code(s): R07.9 - CHEST PAIN, UNSPECIFIED (2) COPD exacerbation Code(s): J44.1 - CHRONIC OBSTRUCTIVE PULMONARY DISEASE W (ACUTE) EXACERBATION
[2017-06-24 07:26] LABS: ALBUMIN 3.4 g/dl (3.4-5.0); ANION GAP 9 (8-16); BILIRUBIN,TOTAL 0.4 mg/dL (0.2-1.0); BLOOD UREA NITROGEN 14 mg/dL (7-18); CALCIUM 8.1 mg/dL (8.5-10.1); CHLORIDE 104 mmol/L (98-107); CO2 27 mmol/L (21-32); CREATININE 1.1 mg/dL (0.55-1.02); GLUCOSE,RANDOM 96 mg/dL (74-106); MAGNESIUM 1.6 mg/dL (1.8-2.4); PHOSPHOROUS 3.4 mg/dL (2.5-4.9); POTASSIUM 3.2 mmol/L (3.5-5.1); SGOT/AST 106 U/L (15-37); SGPT/ALT 77 U/L (12-78); SODIUM 140 mmol/L (136-145); TOT PROT 7.3 g/dl (6.4-8.2)
[2017-06-24 07:29] LABS: ALK PHOS 114 U/L (45-117)
--- NOTE | 2017-06-24 07:38 | PN ---
Progress Note (short form) - Note Progress Note: Chief Complaint: Events noted, notes reviewed, denies any further chest pain but reports dyspnea History of Present Illness: Seen and examined on telemetry. Full consult dictated Echocardiography performed 03/27/17 revealed normal left ventricular systolic function, moderate aortic valve sclerosis Medications: Current Medications Acetaminophen (Tylenol -) 650 mg PO Q8H PRN PRN Reason: PAIN LEVEL 6-10 Albuterol Sulfate (Ventolin Hfa Inhaler -) 2 puff IH Q4H PRN PRN Reason: SHORTNESS OF BREATH Amlodipine Besylate (Norvasc -) 10 mg PO DAILY [facility] Last Admin: 06/24/17 09:41 Dose: 10 mg Ascorbic Acid (Vitamin C -) 500 mg PO DAILY [facility] Last Admin: 06/24/17 09:41 Dose: 500 mg Aspirin (Ecotrin -) 81 mg PO DAILY [facility] Last Admin: 06/24/17 09:41 Dose: 81 mg Atorvastatin Calcium (Lipitor -) 40 mg PO DAILY [facility] Last Admin: 06/24/17 09:40 Dose: 40 mg Carvedilol (Coreg -) 12.5 mg PO BID [facility] Last Admin: 06/24/17 09:41 Dose: 12.5 mg Escitalopram Oxalate (Lexapro -) 20 mg PO DAILY [facility] Last Admin: 06/24/17 09:41 Dose: 20 mg Ferrous Sulfate (Feosol -) 325 mg PO DAILY [facility] Last Admin: 06/24/17 09:41 Dose: 325 mg Hydralazine HCl (Apresoline -) 25 mg PO TID [facility] Last Admin: 06/24/17 06:25 Dose: 25 mg Insulin Aspart (Novolog Vial Sliding Scale -) 1 vial SQ ACHS [facility] PRN Reason: Protocol Last Admin: 06/24/17 06:25 Dose: Not Given Lisinopril (Prinivil) 5 mg PO DAILY [facility] Last Admin: 06/24/17 09:41 Dose: 5 mg Multivitamins/Minerals/Vitamin C (Tab-A-Vit -) 1 tab PO DAILY [facility] Last Admin: 06/24/17 09:40 Dose: 1 tab Nicotine (Nicoderm Patch -) 14 mg TD DAILY [facility] Olanzapine (Zyprexa -) 10 mg PO BID [facility] Review of Systems Cardiovascular: As noted above Respiratory: denies: denies: Cough or Sputum Production Gastrointestinal: denies: Nausea, Vomiting, Diarrhea, Constipation or Abdominal Discomfort Musculoskeletal: No Symptoms Reported Endocrine: No Symptoms Reported Vital Signs: Last Vital Signs Temp Pulse Resp BP Pulse Ox 99 F 77 20 146/58 93 L 06/24/17 10:23 06/24/17 05:42 06/24/17 05:42 06/24/17 05:42 06/24/17 03:23 Intake & Output 06/21/17 06/22/17 06/23/17 06/24/17 23:59 23:59 23:59 23:59 Weight 220 lb Neck: Supple Negative JVD bilateral carotid bruit probably transmitted heart murmur Cardiovascular: S1 S2 regular rate rhythm grade 2/6 systolic ejection murmur Respiratory: Diminished breath sounds at the bases Gastrointestinal: Soft Benign Normal Bowel Sounds Ext: Trace Edema Labs: CBC, BMP 06/23/17 23:23 06/24/17 05:50 Troponin, BNP 06/23/17 06/24/17 23:23 05:50 Troponin I < 0.02 < 0.02 B-Natriuretic Peptide 395.56 H Assessment/Plan ASSESSMENT: 1. Chest pain syndrome atypical for CAD angina pectoris, no clinical evidence of ACS in a patient with known history of CAD angina pectoris 2. History of hypoxic/hypercapneic respiratory failure post intubation/ extubation related to exacerbation of reactive airway disease/chronic obstructive pulmonary disease 3. Chronic class I-II [place] Heart Association classification diastolic left ventricular congestive heart failure, compensated/euvolemic 4. Hypertensive cardiovascular disease 5. Diabetes mellitus 6. hyperlipidemia 7. History of schizophrenia/bipolar disorder 8. History of DIRK 9. CKD 10. anemia 11. Hypokalemia 12. Exogenous obesity PLAN: 1. Continue Coreg 2. Continue Prinivil and titration as tolerated 3. Continue Norvasc 4. Discontinue Hydralazine 5. Continue PO Lasix with close monitoring of renal function 6. Continue Lipitor 7. Daily Aspirin with cation considering the above noted anemia 8. Bronchodilators as per primary 9. Correction of Hypokalemia 10. Counselled smoking cessation 11. As outlined in prior notes patient will eventually require myocardial perfusion imaging study to assess severity of coronary artery disease, can be performed on outpatient basis Rin Shaw MD
[2017-06-24] MEDS ORDERED: ESCITALOPRAM OXALATE 20 MG TABLET (FP) PO SCH (10:00)
[2017-06-24] MEDS ORDERED: ASCORBIC ACID 500 MG TABLET (FP) PO SCH (10:00)
[2017-06-24] MEDS ORDERED: ASPIRIN COATED 81 MG TABLET.EC PO SCH (10:00)
[2017-06-24] MEDS ORDERED: amLODIPine BESYLATE 10 MG TABLET (FP) PO SCH (10:00)
[2017-06-24] MEDS ORDERED: MULTIVITAMINS (DAILY MVI) TABLET (FP) PO SCH (10:00)
[2017-06-24] MEDS ORDERED: ATORVASTATIN CA 40 MG TABLET (FP) PO SCH (10:00)
[2017-06-24] MEDS ORDERED: OLANZapine 10 MG TABLET PO SCH (10:00)
[2017-06-24] MEDS ORDERED: LISINOPRIL 5 MG TABLET (FP) PO SCH ×2 (10:00→11:25)
[2017-06-24] MEDS ORDERED: NICOTINE 14 MG/24 HOURS TOPICAL PATCH TD SCH (10:00)
[2017-06-24] MEDS ORDERED: FERROUS SO4 325 MG TABLET (FP) PO SCH (10:00)
[2017-06-24] MEDS ORDERED: CARVEDILOL 12.5 MG TABLET (FP) PO SCH (10:00)
[2017-06-24 10:24] VITALS: TEMP 99
--- NOTE | 2017-06-24 10:56 | PN ---
Physical Exam: SUBJECTIVE: Patient seen and examined OBJECTIVE: Vital Signs Temperature 99 F 06/24/17 10:23 Pulse Rate 77 06/24/17 05:42 Respiratory Rate 20 06/24/17 05:42 Blood Pressure 146/58 06/24/17 05:42 O2 Sat by Pulse Oximetry (%) 93 L 06/24/17 03:23 GENERAL: The patient is awake, alert, and fully oriented, in no acute distress. HEAD: Normal with no signs of trauma. EYES: PERRL, extraocular movements intact, sclera anicteric, conjunctiva clear. ENT: Ears normal, oropharynx clear without exudates, moist mucous membranes. NECK: Trachea midline, full range of motion, supple. LUNGS: Breath sounds equal, clear to auscultation bilaterally, no wheezes, no crackles, no accessory muscle use. HEART: Regular rate and rhythm, S1, S2 without murmur, rub or gallop. ABDOMEN: Soft, nontender, nondistended, normoactive bowel sounds, no guarding, no rebound, no hepatosplenomegaly, no masses. EXTREMITIES: 2+ pulses, warm, well-perfused, no edema. NEUROLOGICAL: Cranial nerves II through XII grossly intact. Normal speech, gait not observed. PSYCH: Normal mood, normal affect. SKIN: Warm, dry, normal turgor, no rashes or lesions noted Current Medications Generic Name Dose Route Start Last Admin Trade Name Freq PRN Reason Stop Dose Admin Acetaminophen 650 mg 06/24/17 02:19 Tylenol - PO Q8H PRN PAIN LEVEL 6-10 Albuterol Sulfate 2 puff 06/24/17 02:19 Ventolin Hfa Inhaler - IH Q4H PRN SHORTNESS OF BREATH Amlodipine Besylate 10 mg 06/24/17 10:00 06/24/17 09:41 Norvasc - PO 10 mg DAILY [facility] Administration Ascorbic Acid 500 mg 06/24/17 10:00 06/24/17 09:41 Vitamin C - PO 500 mg DAILY [facility] Administration Aspirin 81 mg 06/24/17 10:00 06/24/17 09:41 Ecotrin - PO 81 mg DAILY [facility] Administration Atorvastatin Calcium 40 mg 06/24/17 10:00 06/24/17 09:40 Lipitor - PO 40 mg DAILY [facility] Administration Carvedilol 12.5 mg 06/24/17 10:00 06/24/17 09:41 Coreg - PO 12.5 mg BID [facility] Administration Escitalopram Oxalate 20 mg 06/24/17 10:00 06/24/17 09:41 Lexapro - PO 20 mg DAILY [facility] Administration Ferrous Sulfate 325 mg 06/24/17 10:00 06/24/17 09:41 Feosol - PO 325 mg DAILY [facility] Administration Insulin Aspart 1 vial 06/24/17 07:00 06/24/17 12:06 Novolog Vial Sliding Scale - SQ Not Given ACHS [facility] Protocol Lisinopril 20 mg 06/24/17 11:25 Prinivil PO DAILY [facility] Multivitamins/Minerals/Vitamin C 1 tab 06/24/17 10:00 06/24/17 09:40 Tab-A-Vit - PO 1 tab DAILY [facility] Administration Nicotine 14 mg 06/24/17 10:00 06/24/17 12:05 Nicoderm Patch - TD Not Given DAILY [facility] Olanzapine 10 mg 06/24/17 10:00 06/24/17 12:06 Zyprexa - PO 10 mg BID [facility] Administration Home Medications Medication Instructions Recorded Acetaminophen [Tylenol .Regular 650 mg PO Q8H PRN tablet 05/10/17 Strength -] Albuterol Sulfate Inhaler - 2 inh PO Q4H PRN #1 inh 05/10/17 [Ventolin HFA Inhaler -] Amlodipine Besylate [Norvasc -] 10 mg PO DAILY #30 tablet 05/10/17 Ascorbic Acid [Vitamin C -] 500 mg PO DAILY tablet 05/10/17 Aspirin Coated [Ecotrin -] 81 mg PO DAILY #30 tablet.ec 05/10/17 Atorvastatin Ca [Lipitor] 40 mg PO DAILY #30 tablet 05/10/17 Carvedilol [Coreg -] 12.5 mg PO BID #30 tablet 05/10/17 Escitalopram Oxalate [Lexapro -] 20 mg PO DAILY #30 tablet 05/10/17 Ferrous Sulfate [Feosol] 325 mg PO DAILY #30 ud 05/10/17 Furosemide [Lasix -] 40 mg PO BID@0600,1400 tablet 05/10/17 Hydralazine HCl 25 mg PO TID #30 tablet 05/10/17 Lisinopril [Prinivil] 5 mg PO DAILY #30 tablet 05/10/17 Multivitamins [Multivit ([facility] 1 tab PO DAILY tab 05/10/17 Formulary)] Nicotine Patch [Nicoderm Patch -] 14 mg TD DAILY patch 05/10/17 Olanzapine [Zyprexa -] 10 mg PO BID #30 tablet 05/10/17 Sitagliptin Phosphate [Januvia -] 50 mg PO DAILY@0700 tablet 05/10/17 Oxycodone HCl/Acetaminophen 1 tab PO BID #4 tablet MDD 2 tabs 06/12/17 [Percocet 5-325 mg Tablet] Troponin, BNP 06/23/17 06/24/17 23:23 05:50 Troponin I < 0.02 < 0.02 B-Natriuretic Peptide 395.56 H A/P: # Acute atypical Chest pain r/o ACS no clinical evidence of ACS in a patient with known history of CAD angina pectoris # History of hypoxic/hypercapneic respiratory failure post intubation/ extubation related to exacerbation of reactive airway disease/chronic obstructive pulmonary disease 3. Chronic class I-II [place] Heart Association classification diastolic left ventricular congestive heart failure, compensated/euvolemic 4. Hypertensive cardiovascular disease 5. Diabetes mellitus 6. hyperlipidemia 7. History of schizophrenia/bipolar disorder 8. History of DIRK 9. CKD 10. anemia 11. Hypokalemia 12. Exogenous obesity 1. Continue Coreg 2. Continue Prinivil and titration as tolerated 3. Continue Norvasc 4. Discontinue Hydralazine 5. Continue PO Lasix with close monitoring of renal function 6. Continue Lipitor 7. Daily Aspirin with cation considering the above noted anemia 8. Bronchodilators as per primary 9. Correction of Hypokalemia 10. Counselled smoking cessation 11. As outlined in prior notes patient will eventually require myocardial perfusion imaging study to assess severity of coronary artery disease, can be performed on outpatient basis COPD -stable -duonebs prn HTN -continue norvasc 10 d, other meds as above HLD -lipitor 40 hs NIDDM -hold januvia -bgm achs, iss schizophrenia/bipolar disorder -continue zyprexa, lexapro Obesity
[2017-06-24] MEDS ORDERED: POTASSIUM CHLORIDE TABS 20 MEQ TABLET.ER (FP) PO ONE (11:24)
--- NOTE | 2017-06-24 11:37 | EKG ---
Test Reason : Blood Pressure : / mmHG Vent. Rate : 074 BPM Atrial Rate : 074 BPM P-R Int : 182 ms QRS Dur : 082 ms QT Int : 430 ms P-R-T Axes : 080 038 076 degrees QTc Int : 477 ms NORMAL SINUS RHYTHM NORMAL ECG WHEN COMPARED WITH ECG OF 23-JUN-2017 21:50, NO SIGNIFICANT CHANGE WAS FOUND Confirmed by MD ADEN, JIMI ([id number]) on 06/24/2017 11:36:47 AM Referred By: Josef DIAZ Confirmed By:JIMI SAMANIEGO MD
[2017-06-24 12:46] VITALS: PULSE 76
--- NOTE | 2017-06-24 12:48 | DS ---
Physical Exam: SUBJECTIVE: Patient seen and examined Patient is a 61yo female, sitting on the bed, denies any further chest pain, no palpitations, no fever or chills, no headache. no shortness of breath. OBJECTIVE: Vital Signs Temperature 99 F 06/24/17 12:44 Pulse Rate 76 06/24/17 12:44 Respiratory Rate 19 06/24/17 12:44 Blood Pressure 129/67 06/24/17 12:44 O2 Sat by Pulse Oximetry (%) 93 L 06/24/17 03:23 pHYSICAL EXAM GENERAL: The patient is awake, alert, and fully oriented, in no acute distress. HEAD: Normal with no signs of trauma. EYES: PERRL, extraocular movements intact, sclera anicteric, conjunctiva clear. ENT: Ears normal, oropharynx clear without exudates, moist mucous membranes. NECK: Trachea midline, full range of motion, supple. LUNGS: decreased BS at the basis otherwise clear to auscultation bilaterally, no wheezes, no crackles, no accessory muscle use. HEART: Regular rate and rhythm, S1, S2 without murmur, rub or gallop. ABDOMEN: Soft, nontender, nondistended, large abdomen, normoactive bowel sounds , no guarding, no rebound, no hepatosplenomegaly, no masses appreciated. EXTREMITIES: 2+ pulses, warm, well-perfused, no edema. NEUROLOGICAL: Cranial nerves II through XII grossly intact. Normal speech, gait not observed. PSYCH: Normal mood, normal affect. SKIN: Warm, dry, normal turgor, no rashes or lesions noted. LABS CBCD WBC 3.3 K/mm3 (4.0-10.0) L 06/23/17 23:23 RBC 4.53 M/mm3 (3.60-5.2) 06/23/17 23:23 Hgb 11.5 GM/dL (10.7-15.3) D 06/23/17 23:23 Hct 37.2 % (32.4-45.2) D 06/23/17 23:23 MCV 82.2 fl (80-96) 06/23/17 23:23 MCHC 30.9 g/dl (32.0-36.0) L 06/23/17 23:23 RDW 22.2 % (11.6-15.6) H 06/23/17 23:23 Plt Count 218 K/MM3 (134-434) D 06/23/17 23:23 MPV 7.2 fl (7.5-11.1) L 06/23/17 23:23 CMP Sodium 140 mmol/L (136-145) 06/24/17 05:50 Potassium 3.2 mmol/L (3.5-5.1) L 06/24/17 05:50 Chloride 104 mmol/L (98-107) 06/24/17 05:50 Carbon Dioxide 27 mmol/L (21-32) 06/24/17 05:50 Anion Gap 9 (8-16) 06/24/17 05:50 BUN 14 mg/dL (7-18) 06/24/17 05:50 Creatinine 1.1 mg/dL (0.55-1.02) H 06/24/17 05:50 Creat Clearance w eGFR 50.33 (>60) 06/24/17 05:50 Random Glucose 96 mg/dL (74-106) 06/24/17 05:50 Calcium 8.1 mg/dL (8.5-10.1) L 06/24/17 05:50 Total Bilirubin 0.4 mg/dL (0.2-1.0) D 06/24/17 05:50 AST 106 U/L (15-37) H 06/24/17 05:50 ALT 77 U/L (12-78) 06/24/17 05:50 Alkaline Phosphatase 114 U/L (45-117) 06/24/17 05:50 Total Protein 7.3 g/dl (6.4-8.2) 06/24/17 05:50 Albumin 3.4 g/dl (3.4-5.0) 06/24/17 05:50 CARDIAC ENZYMES Creatine Kinase 41 IU/L (26-192) 06/23/17 23:23 Troponin I < 0.02 ng/ml (0.00-0.05) 06/24/17 05:50 Current Medications Generic Name Dose Route Start Last Admin Trade Name Freq PRN Reason Stop Dose Admin Acetaminophen 650 mg 06/24/17 02:19 Tylenol - PO Q8H PRN PAIN LEVEL 6-10 Albuterol Sulfate 2 puff 06/24/17 02:19 Ventolin Hfa Inhaler - IH Q4H PRN SHORTNESS OF BREATH Amlodipine Besylate 10 mg 06/24/17 10:00 06/24/17 09:41 Norvasc - PO 10 mg DAILY [facility] Administration Ascorbic Acid 500 mg 06/24/17 10:00 06/24/17 09:41 Vitamin C - PO 500 mg DAILY [facility] Administration Aspirin 81 mg 06/24/17 10:00 06/24/17 09:41 Ecotrin - PO 81 mg DAILY [facility] Administration Atorvastatin Calcium 40 mg 06/24/17 10:00 06/24/17 09:40 Lipitor - PO 40 mg DAILY [facility] Administration Carvedilol 12.5 mg 06/24/17 10:00 06/24/17 09:41 Coreg - PO 12.5 mg BID [facility] Administration Escitalopram Oxalate 20 mg 06/24/17 10:00 06/24/17 09:41 Lexapro - PO 20 mg DAILY [facility] Administration Ferrous Sulfate 325 mg 06/24/17 10:00 06/24/17 09:41 Feosol - PO 325 mg DAILY [facility] Administration Insulin Aspart 1 vial 06/24/17 07:00 06/24/17 12:06 Novolog Vial Sliding Scale - SQ Not Given [facility] Protocol Lisinopril 20 mg 06/24/17 11:25 Prinivil PO DAILY [facility] Multivitamins/Minerals/Vitamin C 1 tab 06/24/17 10:00 06/24/17 09:40 Tab-A-Vit - PO 1 tab DAILY [facility] Administration Nicotine 14 mg 06/24/17 10:00 06/24/17 12:05 Nicoderm Patch - TD Not Given DAILY [facility] Olanzapine 10 mg 06/24/17 10:00 06/24/17 12:06 Zyprexa - PO 10 mg BID [facility] Administration Home Medications Medication Instructions Recorded Acetaminophen [Tylenol .Regular 650 mg PO Q8H PRN tablet 05/10/17 Strength -] Albuterol Sulfate Inhaler - 2 inh PO Q4H PRN #1 inh 05/10/17 [Ventolin HFA Inhaler -] Amlodipine Besylate [Norvasc -] 10 mg PO DAILY #30 tablet 05/10/17 Ascorbic Acid [Vitamin C -] 500 mg PO DAILY tablet 05/10/17 Aspirin Coated [Ecotrin -] 81 mg PO DAILY #30 tablet.ec 05/10/17 Atorvastatin Ca [Lipitor] 40 mg PO DAILY #30 tablet 05/10/17 Carvedilol [Coreg -] 12.5 mg PO BID #30 tablet 05/10/17 Escitalopram Oxalate [Lexapro -] 20 mg PO DAILY #30 tablet 05/10/17 Ferrous Sulfate [Feosol] 325 mg PO DAILY #30 ud 05/10/17 Furosemide [Lasix -] 40 mg PO BID@0600,1400 tablet 05/10/17 Hydralazine HCl 25 mg PO TID #30 tablet 05/10/17 Lisinopril [Prinivil] 5 mg PO DAILY #30 tablet 05/10/17 Multivitamins [Multivit ([facility] 1 tab PO DAILY tab 05/10/17 Formulary)] Nicotine Patch [Nicoderm Patch -] 14 mg TD DAILY patch 05/10/17 Olanzapine [Zyprexa -] 10 mg PO BID #30 tablet 05/10/17 Sitagliptin Phosphate [Januvia -] 50 mg PO DAILY@0700 tablet 05/10/17 Oxycodone HCl/Acetaminophen 1 tab PO BID #4 tablet MDD 2 tabs 06/12/17 [Percocet 5-325 mg Tablet] 06/23/17 06/24/17 23:23 05:50 Troponin I < 0.02 < 0.02 B-Natriuretic Peptide 395.56 H HOSPITAL COURSE: Date of Admission:06/24/17 Date of Discharge: 06/24/17 This is a 61 yo F with PMH of CAD, diastolic failure, HTN, HLD, CHF, COPD, HCV, schizophrenia/bipolar, CKD, who presented to Ed. for having sudden onset of cp and sob. # Acute atypical Chest pain , No evidence of ACS in a patient with known history of CAD angina pectoris, patient will follow with her loan coordinator and business support assistant for further testing as an outpatient. Patient is chest pain and shortness of breath free. Discussed with loan coordinator further w/u as an outpatient. # History of COPD stable at this time # Chronic diastolic left ventricular congestive heart failure compensated continue home meds. # Hypertensive cardiovascular disease continue home meds # Diabetes mellitus controlled continue home meds, Hgb a1c 6.6, follow up with your primary and water safety instructor as an ooutpatient. # Hx of hyperlipidemia continue lipitor # Hx of schizophrenia/bipolar disorder continue home meds # CKD stable #Hx of anemia continue home meds # Hx of Hypokalemia given a dose of kdur 40meq # Morbid obesity discussed weight lose, Counselled smoking cessation. require myocardial perfusion imaging study to assess severity of coronary artery disease, can be performed on outpatient basis discharge time 40 min Minutes to complete discharge: 40 Discharge Summary Reason For Visit: CHEST PAIN Current Active Problems Chest pain (Acute) Condition: Stable - Instructions - Home Medications Comprehensive Discharge Medication List: Ambulatory Orders Acetaminophen [Tylenol .Regular Strength -] 650 mg PO Q8H PRN tablet 05/10/17 Albuterol Sulfate Inhaler - [Ventolin HFA Inhaler -] 2 inh PO Q4H PRN #1 inh Amlodipine Besylate [Norvasc -] 10 mg PO DAILY #30 tablet 05/10/17 Ascorbic Acid [Vitamin C -] 500 mg PO DAILY tablet 05/10/17 Aspirin Coated [Ecotrin -] 81 mg PO DAILY #30 tablet.ec 05/10/17 Atorvastatin Ca [Lipitor] 40 mg PO DAILY #30 tablet 05/10/17 Carvedilol [Coreg -] 12.5 mg PO BID #30 tablet 05/10/17 Escitalopram Oxalate [Lexapro -] 20 mg PO DAILY #30 tablet 05/10/17 Ferrous Sulfate [Feosol] 325 mg PO DAILY #30 ud 05/10/17 Furosemide [Lasix -] 40 mg PO BID@0600,1400 tablet 05/10/17 Hydralazine HCl 25 mg PO TID #30 tablet 05/10/17 Lisinopril [Prinivil] 5 mg PO DAILY #30 tablet 05/10/17 Multivitamins [Multivit ([facility] Formulary)] 1 tab PO DAILY tab 05/10/17 Nicotine Patch [Nicoderm Patch -] 14 mg TD DAILY patch 05/10/17 Olanzapine [Zyprexa -] 10 mg PO BID #30 tablet 05/10/17 Sitagliptin Phosphate [Januvia -] 50 mg PO DAILY@0700 tablet 05/10/17 Oxycodone HCl/Acetaminophen [Percocet 5-325 mg Tablet] 1 tab PO BID #4 tablet MDD 2 tabs 06/12/17 This patient is new to me today: Yes Date on this admission: 06/24/17 Emergency Visit: Yes ED Registration Date: 06/24/17 Care time: The patient presented to the Emergency Department on the above date and was hospitalized for further evaluation of their emergent condition. Critical Care patient: No - Discharge Referral Referred to [facility] No
--- NOTE | 2017-06-24 13:51 | CONS ---
DATE OF CONSULTATION: 06/24/2017 REQUESTING PHYSICIAN: Consultation requested by hospitalist. CHIEF COMPLAINT: Chest pain, dyspnea, cardiovascular evaluation. HISTORY OF PRESENT ILLNESS: This is a 61-year-old female of -[place] descent, known to our service from recent hospitalization hospitalized, with known history of coronary artery disease angina pectoris, diastolic left ventricular dysfunction with chronic Class 1-2 [place] Heart Association Classification left ventricular failure, recent hospitalization with hypercapnic hypoxic respiratory failure post intubation, hypertensive cardiovascular disease, diabetes mellitus, hypercholesterolemia, history of bipolar disorder/schizophrenia, history of obstructive sleep apnea and chronic kidney disease, who presented to [facility] with recurrent episodes of chest discomfort described as heaviness, which was transitory and subsided spontaneously within a few minutes. Patient, in addition, reported increasing dyspnea. Patient reported persistence of bilateral lower extremity edema. Patient denied any orthopnea or paroxysmal nocturnal dyspnea. Patient denied any palpitations. Patient denied any dizziness or lightheadedness. Patient has been reporting fatigue and tiredness. Patient continues to smoke. PAST MEDICAL HISTORY: Coronary artery disease angina pectoris, diastolic left ventricular dysfunction with chronic Class 1-2 [place] Heart Association Classification left ventricular failure, hypertensive cardiovascular disease, diabetes mellitus, hypercholesterolemia, respiratory failure related to chronic obstructive pulmonary disease exacerbation, obstructive sleep apnea, history of schizophrenia/ bipolar disorder, history of chronic kidney disease and chronic anemia. SOCIAL HISTORY: A smoker. FAMILY HISTORY: Positive for coronary artery disease. ALLERGIES: To METFORMIN, PENICILLIN, IBUPROFEN. MEDICATIONS: Medical therapy currently includes acetaminophen 650 mg every 8 hours as needed, Ventolin HFA 2 puffs every 4 hours as needed, Norvasc 10 mg once a day, vitamin C 500 mg once a day, Ecotrin 81 mg once a day, Lipitor 40 mg once a day, Coreg 12.5 mg twice a day, Lexapro 20 mg once a day, ferrous sulfate 325 mg once a day, hydralazine 25 mg 3 times a day, insulin as prescribed, lisinopril 5 mg once a day, multivitamin 1 tablet once a day, NicoDerm Patch 14 mg once a day, Zyprexa 10 mg twice a day. REVIEW OF SYSTEMS: Head and neck: Denies headache, photophobia, blurring of vision. Respiratory: Cough, nonproductive of sputum. Cardiovascular: As noted above. Gastrointestinal: Denies nausea, vomiting, abdominal discomfort. Genitourinary: No symptoms reported. Musculoskeletal: No symptoms reported. PHYSICAL EXAMINATION: Vital signs: Blood pressure is 146/58 mmHg, pulse rate is 77 beats per minute. Head and neck: Pupils equally reactive to light and accommodation. Extraocular muscles are intact. Anicteric sclerae. Negative JVD. Bilateral carotid bruits, probably transmitted heart murmur. Chest: Diminished breath sounds at the bases. Cardiovascular: S1, S2 regular. Grade 2/6 systolic ejection murmur. No clicks or gallops. Abdomen: Soft, benign. Normoactive bowel sounds. Extremities: Trace edema. 1+ distal pulses. No calf tenderness. STUDIES: Electrocardiogram reveals sinus rhythm with non-specific ST-segment abnormality. CBC revealed a white cell count of 3.3, hemoglobin of 11.5, platelet count 218. Basic metabolic profile revealed sodium of 140, potassium 3.2, BUN 14, creatinine 1.1, glucose 96. CPK and troponin levels were noted. B-type natriuretic peptide was 395.56. ASSESSMENT: 1. Chest pain syndrome atypical for coronary artery disease angina pectoris. No clinical evidence of acute coronary syndrome in a patient with known history of coronary artery disease angina pectoris. 2. History of hypoxic/hypercapnic respiratory failure post intubation/extubation related to exacerbation of reactive airway disease/chronic obstructive pulmonary disease. 3. Chronic class 1-2 [place] Heart Association classification diastolic left ventricular congestive heart failure compensated/euvolemic. . 4. Hypertensive cardiovascular disease. 5. Diabetes mellitus. 6. Hypercholesterolemia. 7. History of schizophrenia/bipolar disorder. 8. History of obstructive sleep apnea. 9. Chronic kidney disease. 10. Anemia. 11. Exogenous obesity. RECOMMENDATIONS: 1. Continuation of Coreg therapy. 2. Continuation of Prinivil therapy and titration of dosage as tolerated. 3. Continuation of Norvasc therapy. 4. Discontinuation of hydralazine therapy. 5. Continuation of oral Lasix therapy with close monitoring of renal function. 6. Continuation of Lipitor therapy. 7. Continuation of aspirin therapy with caution considering the above noted anemia. 8. Patient was strongly counseled smoking cessation. 9. Bronchodilators as per the primary/pulmonary team. 10. As outline in prior notes from prior hospitalization, patient will eventually require myocardial perfusion imaging studies to assess severity of coronary artery disease. It can be performed on outpatient basis. Thank you for the kind referral. MARI CASSIDY M.D. EMILEE/[id number]
[2017-06-24 14:38] VITALS: BP 126/68
--- NOTE | 2017-06-25 14:26 | EKG ---
Test Reason : Blood Pressure : / mmHG Vent. Rate : 070 BPM Atrial Rate : 070 BPM P-R Int : 202 ms QRS Dur : 086 ms QT Int : 456 ms P-R-T Axes : 065 042 067 degrees QTc Int : 492 ms NORMAL SINUS RHYTHM POSSIBLE LEFT ATRIAL ENLARGEMENT PROLONGED QT ABNORMAL ECG Confirmed by MD ADEN, JIMI ([id number]) on 06/25/2017 2:26:08 PM Referred By: Confirmed By:JIMI SAMANIEGO MD
== END 2017-06-24 14:59 | disposition home or self-care (01) ==
LOC: JER 21:34 → JERBED 06-24 01:19 → J2W 06-24 03:11
PROVIDERS: ADMIT Internal Medicine; ATTEND Internal Medicine
PROC: 3E033GC Introduction of Other Therapeutic Substance into Peripheral Vein, Percutaneous Approach (ICD-10-PCS; principal; 2017-06-24)
PROC: 3E0F7GC Introduction of Other Therapeutic Substance into Respiratory Tract, Via Natural or Artificial Opening (ICD-10-PCS; 2017-06-24)
DX: R07.9 Chest pain, unspecified (principal); I12.9 Hypertensive chronic kidney disease with stage 1 through stage 4 chronic kidney disease, or unspecified chronic kidney disease; I50.33 Acute on chronic diastolic (congestive) heart failure; I50.9 Heart failure, unspecified; E78.5 Hyperlipidemia, unspecified; E11.22 Type 2 diabetes mellitus with diabetic chronic kidney disease; J44.1 Chronic obstructive pulmonary disease with (acute) exacerbation; B18.2 Chronic viral hepatitis C; F17.210 Nicotine dependence, cigarettes, uncomplicated; F20.9 Schizophrenia, unspecified; F41.9 Anxiety disorder, unspecified; F31.9 Bipolar disorder, unspecified; N18.9 Chronic kidney disease, unspecified; Z88.0 Allergy status to penicillin; Z88.6 Allergy status to analgesic agent; Z88.8 Allergy status to other drugs, medicaments and biological substances; Z79.82 Long term (current) use of aspirin
CPT/HCPCS: 36415; 71045-TC-FY; 80053; 80061; 82550; 82962; 83036; 83721; 83735; 83880; 84100; 84439; 84443; 84484; 85025; 85379; 85610; 93005; 93010; 93970-TC; 94640; 96374; 99282-25; G0378

== ENCOUNTER 2017-06-29 21:18 | Emergency (ER) | payer OTHER ==
[2017-06-29 21:32] VITALS: BP 115/88; PULSE 79; TEMP 98.2; BMI 41.7
--- NOTE | 2017-06-29 21:32 | PDOC ---
Attending Attestation - Resident Resident Name: Leora Dial - ED Attending Attestation I have performed the following: I have examined & evaluated the patient, The case was reviewed & discussed with the resident, I agree w/resident's findings & plan, Exceptions are as noted - Medical Decision Making 06/29/17 21:31 I, Dr. Elizabeth Larios, DO, attest that this document has been prepared under my direction and personally reviewed by me in its entirety. I further attest, that it accurately reflects all work, treatment, procedures and medical decision -making performed by me. 06/29/17 22:30 a/p: 61yo female with chest tightness and sob -wheezing on exam -states feels similar to her COPD exacerbation -c/o siatica pain that radiates down legs b/l -no new trauma -no paresthesias -will check labs, ekg, cxr 06/30/17 01:31 pt states feeling better states she ran out of her pain meds at home states she was taking hydrocodone/apap 10 at home and her next pain management appt is 07/15. States she was not taking the pills as prescribed and ran out early. taking pain meds for LBP pt moving all extremities, neuro intact, no signs or symptoms of caude equina 06/30/17 02:25 repeat trop negative pt states she will call her pain management doc in am to arrange for follow up and refill of pain meds. stable for d/c to home <Elizabeth Larios - Last Filed: 06/30/17 02:25> - HPI HPI: 06/30/17 02:37 Patient is a h61 year old female with a significant past medical history of CAD , diastolic failure, HTN, HLD, CHF, COPD, HCV, schizophrenia/bipolar, CKD, who presents to the ED with complaints of chest tightness that she states began 30 mins prior to ED arrival. Patient reports experiencing chest tightness while at home prompting her to call EMS to come to the ED for further evaluation. She reports chest tightness feels similar to her previous COPD episodes. Patient reports experiencing lower back pain that radiates down her legs bilaterally. Denies nausea, vomiting. Denies fevers,chills. Denies trauma to affected area. Denies contact with sick individuals, out of state travelling. Denies any other symptoms. Allergies: ibuprofen, metformin, Penicillins Social history: Current smoker (8 cigarettes per day). No alcohol. No illicit drugs. Surgical history: Hysterectomy PMD: None - Physicial Exam PE: 06/30/17 02:37 GENERAL: Awake, alert, and fully oriented, in no acute distress HEAD: No signs of trauma EYES: PERRLA, EOMI, sclera anicteric, conjunctiva clear ENT: Auricles normal inspection, hearing grossly normal, nares patent, oropharynx clear without exudates. Moist mucosa NECK: Normal ROM, supple, no lymphadenopathy, JVD, or masses LUNGS: +Wheezing bilaterally. Breath sounds equal, No crackles HEART: Regular rate and rhythm, normal S1 and S2, no murmurs, rubs or gallops ABDOMEN: Soft, nontender, normoactive bowel sounds. No guarding, no rebound. No masses EXTREMITIES: +Trace Edema bilaterally in legs. +Sensation intact. Normal range of motion, no edema. No clubbing or cyanosis. No cords, erythema, or tenderness NEUROLOGICAL: Cranial nerves II through XII grossly intact. Normal speech, normal gait - Medical Decision Making 06/30/17 02:38 Documentation prepared by Vikas Wells, acting as medical assistant dermatology for Elizabeth Larios DO, MD/. <Vikas Wells - Last Filed: 06/30/17 02:38> Discharge Disposition - Discharge Dispostion Last Admission D/C Date: 05/19/17 Admit: No <Elizabeth Larios - Last Filed: 06/30/17 02:25> <Vikas Wells - Last Filed: 06/30/17 02:38> - Diagnosis COPD exacerbation, Chest pain, Low back pain - Discharge Dispostion Disposition: HOME Condition at time of disposition: Stable - Prescriptions Prescriptions: Albuterol Sulfate Inhaler - [Ventolin HFA Inhaler -] 1 - 2 inh PO Q4H PRN #1 inhaler PRN Reason: Short Of Breath/Wheezing Azithromycin [Zithromax 250mg Tablets -] 250 mg PO UTDICT #6 tab predniSONE [Deltasone -] 40 mg PO DAILY #4 tablet - Referrals Referrals: Vito Macario MD, MD [Staff Physician] - Villa Del Rio MD [Staff Physician] - - Patient Instructions Printed Discharge Instructions: DI for Chronic Obstructive Pulmonary Disease, DI for Low Back Pain Additional Instructions: Please take all meds as prescribed. Please make an appointment to see your PMD, email marketing specialist, and pain management doctor. Please take tylenol as needed for pain. Please return to the ED with any further complaints. Heart Score/ECG Review - ECG Intrepretation Comment:: 06/29/17 22:36 sinus at 63, nl axis, nl interval, no acute st/t wave findings <Elizabeth Larios - Last Filed: 06/30/17 02:25>
[2017-06-29] MEDS ORDERED: LIDOCAINE PATCH REMOVAL MC SCH (22:00)
--- NOTE | 2017-06-29 22:06 | PDOC ---
History of Present Illness - General Chief Complaint: Chest Pain Stated Complaint: CHEST PAIN Time Seen by Provider: 06/29/17 21:21 History Source: Patient Exam Limitations: No Limitations - History of Present Illness Initial Comments: 06/29/17 22:03 61 y/o F with PMH of CAD, diastolic failure, HTN, HLD, CHF, COPD, HCV, schizophrenia/bipolar, CKD, recent d/c from [facility] for chest pain -06/24/17 (was recommended cardiac f/u) who presents to the ED c/o chest pain and tightness over the last thirty minutes. As per pt, she was resting at home when she suddenly developed chest tightness a/w SOB; pt states that this feels like her past COPD exacerbations. For this reason, pt called EMS and was brought to the ED. During this time, pt also endorses lumbar pain which is consistent with her sciatica. Denies RANGEL, fever, chills, abdominal pain, or changes in urinary or bowel function. Past History - Past Medical History Allergies/Adverse Reactions: Allergies Allergy/AdvReac Type Severity Reaction Status Date / Time ibuprofen [From Motrin IB] Allergy Verified 06/29/17 21:22 metformin Allergy Verified 06/29/17 21:22 Penicillins Allergy Verified 06/29/17 21:22 Home Medications: Ambulatory Orders Acetaminophen [Tylenol .Regular Strength -] 650 mg PO Q8H PRN tablet 05/10/17 Albuterol Sulfate Inhaler - [Ventolin HFA Inhaler -] 2 inh PO Q4H PRN #1 inh Amlodipine Besylate [Norvasc -] 10 mg PO DAILY #30 tablet 05/10/17 Ascorbic Acid [Vitamin C -] 500 mg PO DAILY tablet 05/10/17 Aspirin Coated [Ecotrin -] 81 mg PO DAILY #30 tablet.ec 05/10/17 Atorvastatin Ca [Lipitor] 40 mg PO DAILY #30 tablet 05/10/17 Carvedilol [Coreg -] 12.5 mg PO BID #30 tablet 05/10/17 Escitalopram Oxalate [Lexapro -] 20 mg PO DAILY #30 tablet 05/10/17 Ferrous Sulfate [Feosol] 325 mg PO DAILY #30 ud 05/10/17 Furosemide [Lasix -] 40 mg PO BID@0600,1400 tablet 05/10/17 Hydralazine HCl 25 mg PO TID #30 tablet 05/10/17 Lisinopril [Prinivil] 5 mg PO DAILY #30 tablet 05/10/17 Multivitamins [Multivit ([facility] Formulary)] 1 tab PO DAILY tab 05/10/17 Olanzapine [Zyprexa -] 10 mg PO BID #30 tablet 05/10/17 Sitagliptin Phosphate [Januvia -] 50 mg PO DAILY@0700 tablet 05/10/17 Anemia: No Asthma: No Cancer: No Cardiac Disorders: Yes CVA: Yes COPD: Yes CHF: No DVT: No Dementia: No Diabetes: Yes GI Disorders: No Disorders: No HTN: Yes Hypercholesterolemia: Yes Liver Disease: Yes (Hepatitis C) Psychiatric Problems: Yes Seizures: No Thyroid Disease: (CKI) - Surgical History Abdominal Surgery: Yes Appendectomy: No Cardiac Surgery: No Cholecystectomy: No Lung Surgery: No Neurologic Surgery: No Orthopedic Surgery: No - Suicide/Smoking/Psychosocial Hx Smoking History: Current some day smoker Have you smoked in the past 12 months: No Number of Cigarettes Smoked Daily: 20 Information on smoking cessation initiated: No 'Breaking Loose' booklet given: 06/24/17 Hx Alcohol Use: No Drug/Substance Use Hx: No Substance Use Type: None Hx Substance Use Treatment: No Review of Systems - Review of Systems Able to Perform ROS?: Yes Respiratory: Yes: Shortness of Breath, SOB at Rest Cardiac (ROS): Yes: Chest Pain *Physical Exam - Vital Signs Last Vital Signs Temp Pulse Resp BP Pulse Ox 98.2 F 79 20 115/88 96 06/29/17 21:21 06/29/17 21:21 06/29/17 21:21 06/29/17 21:21 06/29/17 21:21 - Physical Exam General Appearance: Yes: Nourished, Mild Distress, Obese HEENT: positive: EOMI, ANNA Neck: positive: Supple Respiratory/Chest: positive: Labored Respiration, Wheezing Cardiovascular: positive: Regular Rhythm, Regular Rate, S1, S2 Vascular Pulses: Dorsalis-Pedis (R): 2+, Doralis-Pedis (L): 2+ Gastrointestinal/Abdominal: positive: Normal Bowel Sounds, Soft Musculoskeletal: positive: Normal Inspection Extremity: positive: Normal Range of Motion Neurologic: positive: grades 7 8 tutor II-XII NML intact ED Treatment Course - LABORATORY CBC & Chemistry Diagram: 06/29/17 22:17 06/29/17 22:17 Medical Decision Making - Medical Decision Making 06/29/17 22:55 61 y/o F with PMH of CAD, diastolic failure, HTN, HLD, CHF, COPD, HCV, schizophrenia/bipolar, CKD, recent d/c from [facility] for chest pain -06/24/17 (was recommended cardiac f/u) who presents to the ED c/o chest pain and tightness over the last thirty minutes. Pt with likely COPD exacerbation. Will check labs - cbc, cmp, BNP . Will also give three duoneb tx, and PO prednisone to help bronchodilate. Will also assess troponins, EKG as pt c/o chest pain , will r/o ACS. Will follow CXR r/o any infiltrates, additional pathology. 06/29/17 23:51 Will follow trop 1:15AM
[2017-06-29] MEDS ORDERED: methylPREDNISolone NA SUCC 125 MG/2 ML VIAL IVPB ONE (22:29)
[2017-06-29] MEDS ORDERED: LIDOCAINE 5% TOPICAL PATCH TP ONE (22:29)
[2017-06-29] MEDS ORDERED: predniSONE 20 MG TABLET (UD) PO ONE (22:32)
[2017-06-29] MEDS ORDERED: ACETAMINOPHEN 1000 MG/100 ML VIAL (NON FORMULARY) IVPB ONE (22:33)
[2017-06-29] MEDS: ALBUTEROL SO4 2.5/IPRATROPIUM 0.5 INH SOL 3 ML VIAL.NEB. NEB SCH (23:06)
[2017-06-29 23:07] LABS: BASO % 0.8 % (0-2.0); EOS % 1.1 % (0-4.5); HEMATOCRIT 37.1 % (32.4-45.2); HEMOGLOBIN 11.7 GM/dL (10.7-15.3); LYMPH % 34.1 % (8-40); MCH 25.9 pg (25.7-33.7); MCHC 31.7 g/dl (32.0-36.0); MEAN CELL VOLUME 81.7 fl (80-96); MEAN PLT VOLUME 7.1 fl (7.5-11.1); MONO % 11.9 % (3.8-10.2); NEUT % 52.1 % (42.8-82.8); PLATELET COUNT 191 K/MM3 (134-434); RBC 4.54 M/mm3 (3.60-5.2); RDW 22.1 % (11.6-15.6); WHITE BLOOD COUNT 3.5 K/mm3 (4.0-10.0)
[2017-06-29 23:09] LABS: ADD RBC MORPHOLOGY YES
[2017-06-29 23:29] LABS: ALBUMIN 3.3 g/dl (3.4-5.0); ANION GAP 10 (8-16); BILIRUBIN,TOTAL 0.4 mg/dL (0.2-1.0); BLOOD UREA NITROGEN 13 mg/dL (7-18); CALCIUM 8.4 mg/dL (8.5-10.1); CHLORIDE 100 mmol/L (98-107); CO2 27 mmol/L (21-32); CREATININE 1.2 mg/dL (0.55-1.02); GLUCOSE,RANDOM 98 mg/dL (74-106); POTASSIUM 3.7 mmol/L (3.5-5.1); SGOT/AST 139 U/L (15-37); SGPT/ALT 80 U/L (12-78); SODIUM 137 mmol/L (136-145); TOT PROT 7.3 g/dl (6.4-8.2)
[2017-06-29 23:32] LABS: ALK PHOS 115 U/L (45-117)
[2017-06-29 23:39] LABS: ANISOCYTOSIS 3+; MACROCYTOSIS 1+; OVALOCYTE 1+; PLATELET ESTIMATE ADEQUATE
[2017-06-30] MEDS ORDERED: oxyCODONE HCL 5 MG TABLET PO ONE (01:22)
[2017-06-30] MEDS ORDERED: CYCLOBENZAPRINE HCL 10 MG TABLET (FP) PO ONE (01:22)
[2017-06-30] MEDS ORDERED: ALBUTEROL SO4 2.5/IPRATROPIUM 0.5 INH SOL 3 ML VIAL.NEB. NEB ONE ×2 (01:23)
[2017-06-30] MEDS ORDERED: AZITHROMYCIN 250 MG TABLET PO ONE (02:30)
[2017-06-30] MEDS ORDERED: AZITHROMYCIN 250 MG TABLET ONE (02:41)
--- NOTE | 2017-06-30 08:48 | EKG ---
Test Reason : Blood Pressure : / mmHG Vent. Rate : 063 BPM Atrial Rate : 063 BPM P-R Int : 186 ms QRS Dur : 088 ms QT Int : 446 ms P-R-T Axes : 059 027 067 degrees QTc Int : 456 ms POOR DATA QUALITY, INTERPRETATION MAY BE ADVERSELY AFFECTED NORMAL SINUS RHYTHM NORMAL ECG WHEN COMPARED WITH ECG OF 24-JUN-2017 10:02, NO SIGNIFICANT CHANGE WAS FOUND Confirmed by FRIDA SIFUENTES MD ([id number]) on 06/30/2017 8:48:10 AM Referred By: Confirmed By:FRIDA SIFUENTES MD
== END 2017-06-30 02:56 | disposition home or self-care (01) ==
LOC: JER 21:18
DX: J44.1 Chronic obstructive pulmonary disease with (acute) exacerbation (principal); E78.5 Hyperlipidemia, unspecified; F20.9 Schizophrenia, unspecified; I12.9 Hypertensive chronic kidney disease with stage 1 through stage 4 chronic kidney disease, or unspecified chronic kidney disease; N18.9 Chronic kidney disease, unspecified; F17.210 Nicotine dependence, cigarettes, uncomplicated
CPT/HCPCS: 36415; 71045-TC-FY; 80053; 82550; 83880; 84484; 85025; 93005; 93010; 99281-25